=== PATIENT | female | born 1960 | race Two or more races ===

== ENCOUNTER 2020-03-05 15:51 | Outpatient (REF) | payer OTHER, SELFPAY ==
--- NOTE | 2020-03-05 | MM_ITS ---
EXAMINATION: MM SCREENING DIGITAL BREAST TOMOSYNTHESIS, BILATERAL CLINICAL INFORMATION: Screening. Asymptomatic. The lifetime risk of breast cancer based on the Tyrer-Cuzick Model is 6.5%. COMPARISON: Mammography: October 01, 2018 and studies dating back to August 04, 2013 TECHNIQUE: Digital breast tomosynthesis is performed in both the craniocaudal and mediolateral oblique views along with computer-aided detection (CAD). Synthesized 2D images are generated from the tomosynthesis. FINDINGS: The breasts are heterogeneously dense, which may obscure small masses (ACR BI-RADS breast composition Category c). There are no significant masses, abnormal calcifications, or other abnormalities. MM/MM tomosynthesis screening BI IMPRESSION: There are no significant changes from prior study. ASSESSMENT: BI-RADS 1: Negative RECOMMENDATION: Routine annual mammography screening. This patient's information was entered into a reminder system with a target due date for their next mammogram.
== END 2020-03-05 15:52 | disposition home or self-care (01) ==
LOC: HO.MAMMO 15:51
PROVIDERS: PCP Family Medicine; Visit Provider Family Medicine
DX: Z12.31 Encounter for screening mammogram for malignant neoplasm of breast (principal)
CPT/HCPCS: 77063; 77067

== ENCOUNTER → 2020-03-17 15:27 | Outpatient (BNVA) | payer OTHER, SELFPAY | PROVIDERS: PCP Family Medicine; Visit Provider Anesthesiology | DX: G89.4 Chronic pain syndrome (principal); M46.1 Sacroiliitis, not elsewhere classified; M47.16 Other spondylosis with myelopathy, lumbar region | CPT/HCPCS: 99212 ==

== ENCOUNTER → 2020-04-12 13:32 | Outpatient (BNV) | payer OTHER, SELFPAY | PROVIDERS: Visit Provider Internal Medicine Medical Oncology | DX: D70.9 Neutropenia, unspecified (principal) | CPT/HCPCS: 99213; 99214 ==

== ENCOUNTER → 2020-04-29 14:26 | Outpatient (BNVA) | payer OTHER, SELFPAY | PROVIDERS: PCP Family Medicine; Visit Provider Nurse Practitioner | DX: K58.9 Irritable bowel syndrome, unspecified (principal); K21.9 Gastro-esophageal reflux disease without esophagitis; R13.10 Dysphagia, unspecified; K59.00 Constipation, unspecified | CPT/HCPCS: Q3014 ==

== ENCOUNTER 2020-05-27 16:06 | Outpatient (REF) | payer OTHER, SELFPAY ==
[2020-05-27 17:45] LABS: MANUAL DIFF FLAG NO
[2020-05-27 17:46] LABS: Basophils Percent Auto 0.7 % (0-2); Eosinophils Absolute Auto 0.3 X10*3/uL (0.0-0.4); Hematocrit 39.5 % (37-47); Hemoglobin 12.7 g/dl (12.0-16.0); Lymphocytes Percent Auto 47.2 % (20-40); Mean Corpuscular HGB Conc 32.2 g/dl (31.0-35.0); Mean Corpuscular Hemoglobin 29.5 pg (27.0-33.0); Mean Corpuscular Volume 91.9 fL (80-98); Mean Platelet Volume 10.2 fL (9.4-12.3); Monocytes Absolute Auto 0.3 X10*3/uL (0.1-1.2); Monocytes Percent Auto 7.2 % (2-11); Neutrophils Absolute Auto 1.6 X10*3/uL (2.0-8.3); Neutrophils Percent Auto 38.9 % (45-73); Platelet Count 296 X10*3/uL (160-400); Red Cell Distribution Width 12.3 % (11.0-16.0); White Blood Count 4.2 X10*3/uL (4.8-10.8)
[2020-05-27 18:10] LABS: Alanine Aminotransferase 27 U/L (0-31); Albumin Level 4.5 g/dL (3.5-5.0); Alkaline Phosphatase 73 U/L (39-117); Anion Gap 13 (12-20); Aspartate Amino Transferase 25 U/L (5-31); Bilirubin Total 0.7 mg/dL (0.0-1.0); Blood Urea Nitrogen 18 mg/dL (9-16); C Reactive Protein 0.05 mg/dL (< or = 0.50); Calcium 9.8 mg/dL (8.4-10.2); Carbon Dioxide 26 mmol/L (22-29); Chloride 106 mmol/L (96-108); Estimated Glomerular Filt Rate > 60; Glucose Random 83 mg/dL (60-115); Potassium 4.3 mmol/l (3.3-5.1); Rheumatoid Factor < 15.0 IU/mL (<15.0); Sodium 141 mmol/L (135-145); Total Protein 7.5 g/dL (6.5-8.0)
[2020-05-27 19:08] LABS: Erythrocyte Sedimentation Rate 11 MM/HR (0-20)
[2020-05-28 11:42] LABS: Cyclic Citrullinated Peptide <16 UNITS
[2020-05-28 20:28] LABS: Anti Nuclear Antibody Screen NEGATIVE (NEGATIVE)
[2020-06-02 16:18] LABS: HLA B27 Negative (Negative)
== END 2020-05-27 16:07 | disposition home or self-care (01) ==
LOC: HO.LAB 16:06
PROVIDERS: PCP Family Medicine; Visit Provider Student in an Organized Health Care Education/Training Program
DX: M25.50 Pain in unspecified joint (principal); M46.1 Sacroiliitis, not elsewhere classified; Z79.899 Other long term (current) drug therapy; Z87.891 Personal history of nicotine dependence
CPT/HCPCS: 36415; 80053; 85025; 85652; 86038; 86039; 86140; 86200; 86431; 86812; 99202

== ENCOUNTER 2020-05-28 11:13 | Day surgery (SDC) | payer OTHER, SELFPAY ==
[2020-05-24 09:21] VITALS: BMI 24.6
--- NOTE | 2020-05-27 10:24 | HO.ANESPROP2 ---
Documented by User: Iveth Arreaga 05/27/20 10:28 HPI - Anesthesia Eval Consult details Narrative: 60yo F for Sacroiliac Joint Steroid Injection PMFSH Past Medical History Medical History Chronic pain syndrome GERD (gastroesophageal reflux disease) Hiatal hernia History of multinodular goiter Hx of migraines IBS (irritable bowel syndrome) Sacroiliitis Schatzki's ring Spondylosis, lumbar, with myelopathy Family History Family History Father Unknown family medical history Mother Breast cancer Chronic asthma HTN (hypertension) Arthritis Diverticulitis Gastritis Surgical History Surgical History History of bilateral tubal ligation History of cholecystectomy History of esophagogastroduodenoscopy (EGD) Hx of arthroscopy of right knee Hx of colonoscopy Hx of dilation and curettage Social History Social History Are you a primary after school caregiver to a significant other at home: No Do you presently have visiting nurse or other home services: No Alcohol intake: never Smoking Status: Former smoker Smoking Quit Date: 2002 Use of substances other than those prescribed or required for medical reasons: No Have you been hit, kicked, punched, or otherwise hurt by someone within the past year? If so, by whom?: No Advance Directives: No Advance Directives Information Provided: No Advance Directives on File: No Recently lost weight without trying: Yes Meds Allergies Allergy/AdvReac Type Severity Reaction Status Date / Time No Known Allergies Allergy Verified 05/27/20 16:20 [No Known Allergies*] Home Medications Medication Instructions Recorded Confirmed Type ibuprofen 800 mg tablet 800 mg PO TID 03/17/20 05/27/20 History topiramate 50 mg tablet 50 mg PO DAILY 03/17/20 05/27/20 History acetaminophen [Mapap Arthritis 1 tab PO Q8H PRN 04/12/20 05/27/20 History Pain] sennosides 8.6 mg capsule 8.6 mg PO DAILY 05/27/20 05/27/20 History sumatriptan succinate 50 mg tablet See Rx Instructions PO .COMPLEX 05/27/20 05/27/20 History Exam Exam Date and Time: May 27, 2020 1024 Height,Weight and Vital Signs: Height 5 ft 3 in Weight 63.049 kg Pertinent Lab Results Pertinent Lab Results: Laboratory Tests 04/12/20 04/12/20 13:34 13:34 WBC 4.3 L Hgb 12.2 Hct 38.7 Plt Count 307 Sodium 140 Potassium 4.2 Chloride 108 Carbon Dioxide 25 BUN 20 H Creatinine 0.85 Assessment and Plan Assessment Anesthesia Assessment: Chart Reviewed Documented by User: Wendi Pulido 05/28/20 13:15 PMFSH Past Medical History Medical History Chronic pain syndrome GERD (gastroesophageal reflux disease) Hiatal hernia History of multinodular goiter Hx of migraines IBS (irritable bowel syndrome) Sacroiliitis Schatzki's ring Spondylosis, lumbar, with myelopathy Family History Family History Father Unknown family medical history Mother Breast cancer Chronic asthma HTN (hypertension) Arthritis Diverticulitis Gastritis Surgical History Surgical History History of bilateral tubal ligation History of cholecystectomy History of esophagogastroduodenoscopy (EGD) Hx of arthroscopy of right knee Hx of colonoscopy Hx of dilation and curettage Social History Social History Are you a primary after school caregiver to a significant other at home: No Do you presently have visiting nurse or other home services: No Alcohol intake: never Smoking Status: Former smoker Smoking Quit Date: 2002 Use of substances other than those prescribed or required for medical reasons: No Have you been hit, kicked, punched, or otherwise hurt by someone within the past year? If so, by whom?: No Advance Directives: No Advance Directives Information Provided: No Advance Directives on File: No Recently lost weight without trying: Yes Meds Allergies Allergy/AdvReac Type Severity Reaction Status Date / Time No Known Allergies Allergy Verified 05/27/20 16:20 [No Known Allergies*] Home Medications Medication Instructions Recorded Confirmed Type ibuprofen 800 mg tablet 800 mg PO TID 03/17/20 05/27/20 History topiramate 50 mg tablet 50 mg PO DAILY 03/17/20 05/27/20 History acetaminophen [Mapap Arthritis 1 tab PO Q8H PRN 04/12/20 05/27/20 History Pain] sennosides 8.6 mg capsule 8.6 mg PO DAILY 05/27/20 05/27/20 History sumatriptan succinate 50 mg tablet See Rx Instructions PO .COMPLEX 05/27/20 05/27/20 History Exam Airway Mallampati Class: II TM Dist: >3cm Neck ROM: Full Partial: Upper and Lower
[2020-05-28 12:37] VITALS: BP 109/63; PULSE 53; RESP 18; TEMP 36.2; O2SAT 100
[2020-05-28] MEDS: Lactated Ringers 1,000 ML 100 ML IVCONT (13:00)
--- NOTE | 2020-05-28 13:16 | MHC.SHP ---
Pre-Procedural Eval Section A The patient is an INPATIENT: No The History & Physical has been completed within 30 days and I have reviewed it.: No Section B Chief Complaint: sacroiliitis Details of Present Illness: as above Relevant Family History (Specify if Yes): No Present Medications: None Medical History: No relevant PMH History of Previous Operations: No relevant previous surgery Allergies: Allergies Allergy/AdvReac Type Severity Reaction Status Date / Time No Known Allergies Allergy Verified 05/27/20 16:20 [No Known Allergies*] Review of Systems Sugical H&P ROS: Negative: Constitution, Cardiovascular, Respiratory, Neurological, Psychiatric, Hem-Onc, Allergic/Immunologic, Gastrointestinal, Genitourinary, Musculoskeletal, Integumentary, Endocrine and Eyes/Ears/Nose/Throat Exam Surgical H&P Exam: Normal: HEENT, Normal: Heart, Normal: Lungs, Normal: Extremities, Normal: Abdomen, Normal: Skin and Normal: Neurological Plan Diagnosis/Plan: Unchanged I have reviewed the history and physical and performed a pertinent physical examination on my patient. No changes have occurred unless specified.
--- NOTE | 2020-05-28 14:02 | FL_ITS ---
EXAMINATION: XR FLUOROSCOPY WITH IMAGES CLINICAL INFORMATION: Sacroiliac joint injections bilateral TECHNIQUE: Fluoroscopy time: 0.2 minutes DAP: 1.79 mGycm2 Images: 2 FINDINGS: Multiple intraoperative fluoroscopic images are submitted during reported bilateral sacroiliac joint injections. Correlation with operative report. Evaluation is limited secondary to fluoroscopic technique. IMPRESSION: Intra-operative fluoroscopic imaging provided by radiology during reported bilateral sacroiliac joint injections. Please refer to operative note for further information.
[2020-05-28 14:32] VITALS: BP 107/53; PULSE 60; RESP 17; TEMP 36.7; O2SAT 98
--- NOTE | 2020-05-28 14:32 | PM.OP ---
Brief Operative Note Date of Service: 05/28/20 Pre-op diagnosis: sacroiliitis Post-op diagnosis: same Procedure: sacroiliac joint injection bilateral Implants: Surgeon: Carlo Azul MD Anesthesia: MAC Estimated blood loss (mL): 0 Condition: stable Disposition: PACU
[2020-05-28 14:47] VITALS: BP 101/52; PULSE 63; RESP 18; TEMP 36.8; O2SAT 100
--- NOTE | 2020-05-28 15:16 | HO.POSTANES ---
Post Anesthesia Evaluation Post Anesthesia Evaluation Vital Signs: Vital Signs Temp Pulse Resp BP Pulse Ox 05/28/20 14:47 98.2 F 63 18 101/52 L 100 05/28/20 14:32 98.1 F 60 17 107/53 L 98 05/28/20 12:37 97.2 F 53 18 109/63 100 Anesthesia: Monitored Mental Status: Awake Pain Control: Satisfactory Nausea/Vomiting: None Hydration: Adequate Anesthesia-Related Issues: No Anes. Related Issues
--- NOTE | 2020-05-28 16:29 | P.OP_ITS ---
Operative Note Operative Note Date of Service: 05/28/20 Narrative: Informed consent was explained thoroughly to the patient. All questions about benefits and risks for the procedure were answered. Patient came to the operating room she was positioned prone on the operating table with the pillow under her pelvis. [place] [employer] monitors were applied and patient was deeply sedated. Her lower back and buttocks was prepped with ChloraPrep prepped and draped with sterile towels. Sterilely draped C-arm was brought over the operating field and sq picture of patient's pelvis was demonstrated on the screen. For each joint tilting C-arm contralateral to the site of the joint and 15? to the foot of the patient the most posterior portion of the joints were clearly delineated on the screen. Skin was injected in the projection of the joint slightly medial to the location of the joint with 25 gauge 1/2 inch needle using local lidocaine 2% without epinephrine. After that 22 gauge 3 and 1/2 inch needle was driven to each point of interest in tunnel vision fashion. When needle entered the joint capsule injection of the contrast was performed demonstrating intra-articular and minimally periarticular spread of the contrast. After that 4 cc. of bupivacaine 0.5% mixed with Kenalog 40 mg was injected into each joint. Upon completion of the injections the needles were removed and pressure were applied. Sterile dressing was applied. Upon completion of the injection patient was awaken taken outside of the operating room to the recovery room where she recovered uneventfully. She went home without immediate complications.
== END 2020-05-28 15:12 | disposition home or self-care (01) ==
PROVIDERS: PCP Family Medicine; Visit Provider Anesthesiology
PROC: 3E0U33Z Introduction of Anti-inflammatory into Joints, Percutaneous Approach (ICD-10-PCS; CPT 27096; principal; 2020-05-28 12:20)
DX: M46.1 Sacroiliitis, not elsewhere classified (principal); M47.16 Other spondylosis with myelopathy, lumbar region; G89.4 Chronic pain syndrome
CPT/HCPCS: 27096; J2250; J3010; J3300; Q9967

== ENCOUNTER → 2020-06-21 15:49 | Outpatient (BNVA) | payer OTHER, SELFPAY | PROVIDERS: PCP Family Medicine; Visit Provider Nurse Practitioner | DX: Z13.89 Encounter for screening for other disorder (principal) | CPT/HCPCS: Q3014 ==

== ENCOUNTER → 2020-06-24 13:46 | Outpatient (BNVA) | payer OTHER, SELFPAY | PROVIDERS: PCP Family Medicine; Visit Provider Anesthesiology | DX: M16.12 Unilateral primary osteoarthritis, left hip (principal); M46.1 Sacroiliitis, not elsewhere classified; M47.16 Other spondylosis with myelopathy, lumbar region; G89.4 Chronic pain syndrome | CPT/HCPCS: 99212 ==

== ENCOUNTER 2020-06-29 13:50 | Outpatient (REF) | payer OTHER, SELFPAY ==
[2020-06-29 14:23] LABS: MANUAL DIFF FLAG NO
[2020-06-29 14:32] LABS: Basophils Percent Auto 0.6 % (0-2); Eosinophils Absolute Auto 0.1 X10*3/uL (0.0-0.4); Eosinophils Percent Auto 1.9 % (0-4); Hematocrit 38.3 % (37-47); Hemoglobin 12.4 g/dl (12.0-16.0); Lymphocytes Absolute Auto 1.3 X10*3/uL (1.2-4.9); Lymphocytes Percent Auto 35.1 % (20-40); Mean Corpuscular HGB Conc 32.4 g/dl (31.0-35.0); Mean Corpuscular Hemoglobin 29.6 pg (27.0-33.0); Mean Corpuscular Volume 91.4 fL (80-98); Monocytes Absolute Auto 0.3 X10*3/uL (0.1-1.2); Neutrophils Percent Auto 55.4 % (45-73); Platelet Count 246 X10*3/uL (160-400); Red Blood Count 4.19 X10*6/uL (4.20-5.50); Red Cell Distribution Width 12.6 % (11.0-16.0); White Blood Count 3.6 X10*3/uL (4.8-10.8)
[2020-06-29 14:49] LABS: Estimated Average Glucose 85 mg/dL; Hemoglobin A1c % 4.6 %
[2020-06-29 15:04] LABS: Alanine Aminotransferase 24 U/L (0-31); Albumin Level 4.1 g/dL (3.5-5.0); Alkaline Phosphatase 57 U/L (39-117); Anion Gap 11 (12-20); Aspartate Amino Transferase 19 U/L (5-31); Bilirubin Total 0.6 mg/dL (0.0-1.0); Blood Urea Nitrogen 19 mg/dL (9-16); Calcium 9.1 mg/dL (8.4-10.2); Carbon Dioxide 24 mmol/L (22-29); Chloride 109 mmol/L (96-108); Cholesterol 194 mg/dL; Estimated Glomerular Filt Rate > 60; Glucose Random 87 mg/dL (60-115); HDL Cholesterol 66 mg/dL; LDL Cholesterol Calculated 121 mg/dl; Potassium 4.1 mmol/L (3.3-5.1); Sodium 140 mmol/L (135-145); Total Protein 6.8 g/dL (6.5-8.0); Triglycerides 35 mg/dL
[2020-06-29 15:21] LABS: TSH reflex Free T4 1.07 uIU/mL (0.32-4.0); Vitamin D 25-OH Total 31.8 ng/mL (>30)
== END 2020-06-29 13:51 | disposition home or self-care (01) ==
LOC: HO.LAB 13:50
PROVIDERS: Absent Provider Internal Medicine Medical Oncology; PCP Nurse Practitioner Family; Visit Provider Nurse Practitioner Family
DX: E04.1 Nontoxic single thyroid nodule (principal); G47.00 Insomnia, unspecified; Z71.89 Other specified counseling
CPT/HCPCS: 36415; 80053; 80061; 82306; 83036; 84443; 85025

== ENCOUNTER → 2020-07-01 16:01 | Outpatient (BNVA) | payer OTHER, SELFPAY | PROVIDERS: Visit Provider Student in an Organized Health Care Education/Training Program | DX: M25.50 Pain in unspecified joint (principal); M54.5 Low back pain; Z91.81 History of falling; Z79.899 Other long term (current) drug therapy | CPT/HCPCS: 99212 ==

== ENCOUNTER 2020-07-07 09:09 | Outpatient (REF) | payer OTHER, SELFPAY ==
--- NOTE | ~2020-07-07 | US_ITS ---
EXAMINATION: US THYROID CLINICAL INFORMATION: Nontoxic multinodular goiter. COMPARISON: Ultrasound soft tissue head/neck thyroid dated 05/05/2019 and 04/24/2018. TECHNIQUE: Linear transducer grayscale and color Doppler examination with attention to the region of the thyroid. FINDINGS: SIZE: Measurements of the thyroid lobes and nodules are given in sagittal, anteroposterior and transverse dimensions respectively. Right Thyroid Lobe: 5.8 x 2.0 x 1.7 cm, volume 10.6 mL. Previously 4.7 x 1.6 x 1.9 cm, volume 7.5 mL. Parenchyma: The gland echotexture is homogeneous. Thyroid vascularity is normal. Left Thyroid Lobe: 5.9 x 2.1 x 2.0 cm, volume 13.1 mL. Previously 5.2 x 2.0 x 2.2 cm, volume 12.0 mL. Parenchyma: The gland echotexture is homogeneous. Thyroid vascularity is increased. Isthmus: 0.1 cm in maximum AP dimension. Previously 0.2 cm. Estimated total number of nodules greater than or equal to 1 cm: 3. 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 Location: Right superior. Size: 0.6 x 0.5 x 0.5 cm, volume 0.08 mL. Previously: 0.7 x 0.5 x 0.6 cm, volume 0.11 mL. Nodule characteristics: Composition: Solid/almost completely solid (2). Echogenicity: Hypoechoic (2). Shape: Not taller than wide (0). Margins: Smooth (0). Echogenic Foci: None (0). ACR TI-RADS total points: 4 ACR TI-RADS category: 4 Significant change in size (>/= 20% in 2 dimensions and minimal increase of 2 mm or 50% or greater increase in volume): None Change in features: None Change in ACR TI-RADS risk category: None 2. Location: Right superior. Size: 0.9 x 0.7 x 0.9 cm, volume 0.33 mL. Previously: 0.9 x 0.8 x 0.8 cm, volume 0.30 mL. Nodule characteristics: Composition: Solid (2). Echogenicity: Hypoechoic (2). Shape: Not taller than wide (0). Margins: Smooth (0). Echogenic Foci: None (0). ACR TI-RADS total points: 4 ACR TI-RADS category: 4 Significant change in size (>/= 20% in 2 dimensions and minimal increase of 2 mm or 50% or greater increase in volume): None Change in features: None Change in ACR TI-RADS risk category: None 3. Location: Right mid/superior. Size: 1.0 x 0.8 x 0.8 cm, volume 0.33 mL. Previously: 0.9 x 0.7 x 0.8 cm, volume 0.26 mL. Nodule characteristics: Composition: Spongiform (0). Echogenicity: Anechoic (0). Shape: Not taller than wide (0). Margins: Smooth (0). Echogenic Foci: None (0). ACR TI-RADS total points: 0 ACR TI-RADS category: 1 Significant change in size (>/= 20% in 2 dimensions and minimal increase of 2 mm or 50% or greater increase in volume): None Change in features: None Change in ACR TI-RADS risk category: None 4. Location: Left mid/superior. Size: 2.2 x 1.8 x 1.9 cm, volume 4.06 mL. Previously: 2.1 x 1.9 x 1.7 cm, volume 3.55 mL. Nodule characteristics: Composition: Solid (2). Echogenicity: Isoechoic (1). Shape: Not taller than wide (0). Margins: Smooth (0). Echogenic Foci: None (0). ACR TI-RADS total points: 3 ACR TI-RADS category: 3 Significant change in size (>/= 20% in 2 dimensions and minimal increase of 2 mm or 50% or greater increase in volume): None Change in features: None Change in ACR TI-RADS risk category: None 5. Location: Left inferior/lateral. Size: 1.2 x 0.9 x 0.8 cm, volume 0.45 mL. Previously: Not documented on the prior study. Nodule characteristics: Composition: Solid (2). Echogenicity: Isoechoic (1). Shape: Taller than wide (3). Margins: Smooth (0). Echogenic Foci: None (0). ACR TI-RADS total points: 6 ACR TI-RADS category: 4 New nodule not documented on the previous exam. NODES: No lymphadenopathy is seen in the tissue surrounding the thyroid gland. US/US thyroid IMPRESSION: Multinodular goiter. There are multiple nodules seen. The largest nodules are documented. A 1.2 cm left lower pole nodule is new or not documented previously. Recommend continued follow-up. ACR TI-RADS RECOMMENDATION REFERENCE: Ultrasound-guided fine-needle aspiration, followup ultrasound, no further follow up. * TR1 (0 point) and TR 2 (2 points): No FNA or follow up * TR3 (3 points): FNA if more than or equal to 2.5 cm in maximum dimension, followup ultrasound in 1, 3 and 5 years if 1.5 to 2.4 cm in maximum dimension. * TR4 (4-6 points): FNA if more than or equal to 1.5 cm in maximum dimension, followup ultrasound in 1, 2, 3 and 5 years if 1 to 1.4 cm in maximum dimension. * TR5 (more than or equal to 7 points): FNA if more than or equal to 1 cm in maximum dimension, followup ultrasound every year for 5 years if 0.5 to 0.9 cm in maximum dimension. * TR3, TR4 or TR5 nodules that are below the size threshold for follow up receive no follow up.
[2020-07-07 10:23] LABS: MANUAL DIFF FLAG NO
[2020-07-07 10:29] LABS: Basophils Percent Auto 0.7 % (0-2); Eosinophils Percent Auto 1.1 % (0-4); Hematocrit 40.1 % (37-47); Hemoglobin 12.9 g/dl (12.0-16.0); Imm Gran Abs Auto 0.01 X10*3/uL (0.00-0.03); Imm Gran Pct Auto 0.4 % (0.0-0.4); Lymphocytes Absolute Auto 1.1 X10*3/uL (1.2-4.9); Lymphocytes Percent Auto 38.9 % (20-40); Mean Corpuscular HGB Conc 32.2 g/dl (31.0-35.0); Mean Corpuscular Hemoglobin 29.8 pg (27.0-33.0); Mean Corpuscular Volume 92.6 fL (80-98); Mean Platelet Volume 9.8 fL (9.4-12.3); Monocytes Absolute Auto 0.2 X10*3/uL (0.1-1.2); Monocytes Percent Auto 6.3 % (2-11); Neutrophils Absolute Auto 1.4 X10*3/uL (2.0-8.3); Neutrophils Percent Auto 52.6 % (45-73); Platelet Count 290 X10*3/uL (160-400); Red Blood Count 4.33 X10*6/uL (4.20-5.50); Red Cell Distribution Width 12.5 % (11.0-16.0); White Blood Count 2.7 X10*3/uL (4.8-10.8)
[2020-07-07 11:05] LABS: Alanine Aminotransferase 26 U/L (0-31); Albumin Level 4.2 g/dL (3.5-5.0); Alkaline Phosphatase 57 U/L (39-117); Anion Gap 9 (12-20); Aspartate Amino Transferase 20 U/L (5-31); Bilirubin Total 0.5 mg/dL (0.0-1.0); Blood Urea Nitrogen 21 mg/dL (9-16); Calcium 9.5 mg/dL (8.4-10.2); Carbon Dioxide 29 mmol/L (22-29); Chloride 107 mmol/L (96-108); Cholesterol 206 mg/dL; Estimated Glomerular Filt Rate > 60; Glucose Random 88 mg/dL (60-115); HDL Cholesterol 67 mg/dL; LDL Cholesterol Calculated 132 mg/dl; Potassium 4.4 mmol/L (3.3-5.1); Sodium 141 mmol/L (135-145); Total Protein 6.9 g/dL (6.5-8.0); Triglycerides 36 mg/dL
[2020-07-07 11:07] LABS: Estimated Average Glucose 91 mg/dL; Hemoglobin A1c % 4.8 %
[2020-07-07 11:19] LABS: TSH reflex Free T4 0.81 uIU/mL (0.32-4.0); Vitamin D 25-OH Total 33.4 ng/mL (>30)
== END 2020-07-07 09:10 | disposition home or self-care (01) ==
LOC: HO.US 09:09
PROVIDERS: Absent Provider Nurse Practitioner Family; PCP Nurse Practitioner Family; Visit Provider Internal Medicine Endocrinology, Diabetes & Metabolism
DX: E04.2 Nontoxic multinodular goiter (principal); E04.1 Nontoxic single thyroid nodule; G47.00 Insomnia, unspecified; Z71.89 Other specified counseling
CPT/HCPCS: 36415; 76536; 80053; 80061; 82306; 83036; 84443; 85025

== ENCOUNTER → 2020-08-03 15:19 | Outpatient (BNVA) | payer OTHER, SELFPAY | PROVIDERS: PCP Family Medicine; Visit Provider Internal Medicine Endocrinology, Diabetes & Metabolism | DX: E04.2 Nontoxic multinodular goiter (principal); E06.3 Autoimmune thyroiditis | CPT/HCPCS: 99212 ==

== ENCOUNTER 2020-08-10 06:28 | Outpatient (REF) | payer OTHER, SELFPAY ==
--- NOTE | ~2020-08-10 | FL_ITS ---
EXAMINATION: XR FLUOROSCOPY WITH IMAGES CLINICAL INFORMATION: M16.12 - Unilateral primary osteoarthritis COMPARISON: Radiographs left hip 07/01/2019 TECHNIQUE: Fluoroscopy performed by Krystina Bee NP. Fluoroscopy time: 0.4 minutes DAP: 1.74 Gycm2 Images: 1 FINDINGS: There is a spinal needle overlying the superolateral aspect of the hip joint. There is some intra-articular contrast present as well as contrast in the labral capsular soft tissue. FL/FL guidance in treatment room IMPRESSION: Fluoroscopy performed during management procedure.
== END 2020-08-10 06:29 | disposition home or self-care (01) ==
LOC: HO.RADIR 06:28
PROVIDERS: Visit Provider Anesthesiology
DX: M16.12 Unilateral primary osteoarthritis, left hip (principal); M46.1 Sacroiliitis, not elsewhere classified; M47.16 Other spondylosis with myelopathy, lumbar region; G89.4 Chronic pain syndrome
CPT/HCPCS: 20610; J3300; Q9967

== ENCOUNTER → 2020-08-13 07:37 | Outpatient (REF) | payer OTHER, SELFPAY | LOC: HO.NUCMED 07:37 | PROVIDERS: Visit Provider Nurse Practitioner | DX: Z13.89 Encounter for screening for other disorder (principal) ==

== ENCOUNTER → 2020-08-30 07:49 | Outpatient (REF) | payer OTHER, SELFPAY ==
--- NOTE | ~2020-08-30 | NM_ITS ---
EXAMINATION: NM RADIONUCLIDE SOLID FOOD GASTRIC EMPTYING 4-HOUR STUDY CLINICAL INFORMATION: Abnormal weight loss COMPARISON: None TECHNIQUE: A standard meal consisting of 4 oz of Egg Beaters brand tagged with 1.0 microcuries Tc-99m Sulfur Colloid, 8 oz water and 2 slices of toast with jelly was administered orally to the patient. Images were obtained using a dual head gamma camera in the anterior and posterior projections over of the stomach immediately post ingestion and at hourly intervals up to 4 hours post ingestion. The anterior and posterior counts at each time interval were averaged using the geometric mean and expressed as percentage of the immediate post ingestion counts. FINDINGS: There is good visualization of activity in the stomach immediately post ingestion. As the study progresses, there is good clearance of activity from the stomach and visualization of progressively increasing small bowel activity. By the end of the study, there is almost no retention noted in the stomach. Retention in the stomach at each time interval was: 1 hour 58% (normal 37%-90%) 2 hours 7% (normal 30%-60%) 3 hours 1% 4 hours 0% (normal 0%-10%) NM/NM gastric emptying study IMPRESSION: Normal 4-hour solid food gastric emptying study.
== END ==
LOC: HO.NUCMED 07:49
PROVIDERS: Visit Provider Nurse Practitioner
DX: R63.4 Abnormal weight loss (principal)
CPT/HCPCS: 78264; A9541

== ENCOUNTER → 2020-09-15 13:45 | Outpatient (BNVA) | payer OTHER, SELFPAY | PROVIDERS: PCP Family Medicine; Visit Provider Anesthesiology | DX: M16.12 Unilateral primary osteoarthritis, left hip (principal); M46.1 Sacroiliitis, not elsewhere classified; M47.16 Other spondylosis with myelopathy, lumbar region; G89.4 Chronic pain syndrome | CPT/HCPCS: Q3014 ==

== ENCOUNTER 2020-10-13 13:24 | Outpatient (REF) | payer OTHER, SELFPAY ==
--- NOTE | ~2020-10-13 | XR_ITS ---
EXAMINATION: XR SHOULDER, RIGHT CLINICAL INFORMATION: Right shoulder pain. COMPARISON: None TECHNIQUE: AP external rotation, Grashey, scapular Y, and axillary views of the right shoulder. FINDINGS: Minimal reduction of glenohumeral and AC joint space is noted. No fracture, dislocation or loose body seen. There is mild inferior periapical spurring right AC joint. The soft tissues are normal. XR/XR shoulder RT min 2V IMPRESSION: Mild early degenerative changes right AC joint and glenohumeral joint.
== END 2020-10-13 13:25 | disposition home or self-care (01) ==
LOC: HO.XRAY 13:24
PROVIDERS: Visit Provider Emergency Medicine
DX: M25.511 Pain in right shoulder (principal)
CPT/HCPCS: 73030

== ENCOUNTER → 2020-11-03 13:31 | Outpatient (BNVA) | payer OTHER, SELFPAY | PROVIDERS: PCP Nurse Practitioner Family; Visit Provider Internal Medicine Endocrinology, Diabetes & Metabolism | DX: E04.2 Nontoxic multinodular goiter (principal); E06.3 Autoimmune thyroiditis; Z79.899 Other long term (current) drug therapy | CPT/HCPCS: 99212 ==

== ENCOUNTER → 2020-11-15 13:12 | Outpatient (BNVA) | payer OTHER, SELFPAY | PROVIDERS: PCP Family Medicine; Referring Provider Nurse Practitioner Family; Visit Provider Nurse Practitioner ==

== ENCOUNTER 2020-11-18 13:23 | Outpatient (REF) | payer OTHER, SELFPAY ==
--- NOTE | ~2020-11-18 | XR_ITS ---
EXAMINATION: XR WRIST, RIGHT CLINICAL INFORMATION: Pain COMPARISON: None TECHNIQUE: PA, lateral, oblique, and scaphoid views of the right wrist. FINDINGS: No acute fracture or dislocation. Small marginal osteophytes present along the first CMC and triscaphe joints with accompanying subchondral sclerosis. Degenerative arthrosis present within the triquetrum. Radiocarpal joint space preserved. Soft tissues unremarkable. XR/XR wrist RT min 3V IMPRESSION: No acute findings. Degenerative changes of the first CMC and triscaphe joints.
== END 2020-11-18 13:24 | disposition home or self-care (01) ==
LOC: HO.XRAY 13:23
PROVIDERS: PCP Nurse Practitioner Family; Visit Provider Nurse Practitioner Family
DX: M75.101 Unspecified rotator cuff tear or rupture of right shoulder, not specified as traumatic (principal); M25.531 Pain in right wrist
CPT/HCPCS: 20610; 73110; 99212; J1100

== ENCOUNTER → 2020-12-17 14:01 | Outpatient (BNVA) | payer OTHER, SELFPAY | PROVIDERS: PCP Nurse Practitioner Family; Referring Provider Nurse Practitioner Family; Visit Provider Nurse Practitioner | DX: G43.909 Migraine, unspecified, not intractable, without status migrainosus (principal); K21.9 Gastro-esophageal reflux disease without esophagitis; K58.9 Irritable bowel syndrome, unspecified; R13.10 Dysphagia, unspecified; R63.4 Abnormal weight loss | CPT/HCPCS: 99212 ==

== ENCOUNTER 2020-12-23 08:00 | Outpatient (RCR) | payer OTHER, SELFPAY ==
--- NOTE | 2020-12-17 08:26 | MHC.PT.EP ---
[facility] [place] [facility] [place] [facility] [place] [facility] [address] Greg Lagos [address] [phone] F: [phone] F: [phone] F: [phone] F: [phone] Physical Therapy Plan of Care Date of Evaluation: Date of Surgery: Diagnosis: painful arc syndrome right shoulder Assessment: The patient arrived with symptoms consistent of a posterolateral derangement of the mid cervical spine with a right lateral component. She had initially significantly reduced cervical spine and right shoulder ROM, butt after treatment of her cervical spine with the Gris method she showed at least a 20 degree improvement with shoulder ROM eliminating her painful arc and 10 degree impovement in her cervical ROM and overall decreased pain. She will need additional visits to improve posture, sitting and body mechanics to improve her pain and decrease reoccurrence. She is a good candidate for skilled PT. Frequency and Duration: The patient will be seen 2x/week x 4 weeks Short Term Goals: 1.Pt to able to demonstrate proper sitting posture with the use of a lumbar roll to decrease aggravating factors. 2.Pt to be able to demonstrate proper posture for common leisure activities such as phone/tablet use. 3.For the patient to demonstrate proper upright sitting posture with use of the lumbar roll to improve compliance and carryover. Bone Char Operator Goals: 1. Pt to be able to return to normal PLOF without limiting pain. 2. Pt to be able to return to overhead reaching without pain or limitation. 3. Pt to be able to manage her pain with selected exercise and stretching regime. Treatment Plan: Modalities to reduce pain, spasms and effusion. Manual therapy to restore motion and function. Therapeutic exercise to improve strength and flexibility. Neuromuscular re-education for posture and balance. Therapeutic activities to return to functional activities of daily living. Electronically signed by: Nancy Mars PT DPT Please sign and return to therapist. Thank you for your referral.
== END 2021-01-18 08:00 | disposition home or self-care (01) ==
LOC: HO.PT 08:00
PROVIDERS: Visit Provider Orthopaedic Surgery
DX: M75.101 Unspecified rotator cuff tear or rupture of right shoulder, not specified as traumatic (principal)
CPT/HCPCS: 97110; 97112; 97140; 97162

== ENCOUNTER → 2021-01-28 13:37 | Outpatient (BNVA) | payer OTHER, SELFPAY | PROVIDERS: PCP Nurse Practitioner Family; Visit Provider Nurse Practitioner ==

== ENCOUNTER → 2021-03-07 15:36 | Outpatient (BNVA) | payer OTHER, SELFPAY | PROVIDERS: PCP Nurse Practitioner Family; Visit Provider Anesthesiology | DX: M16.12 Unilateral primary osteoarthritis, left hip (principal); M46.1 Sacroiliitis, not elsewhere classified; M47.16 Other spondylosis with myelopathy, lumbar region; G89.4 Chronic pain syndrome | CPT/HCPCS: 99212 ==

== ENCOUNTER 2021-03-09 13:46 | Outpatient (REF) | payer OTHER, SELFPAY ==
--- NOTE | ~2021-03-09 | MM_ITS ---
EXAMINATION: MM SCREENING DIGITAL BREAST TOMOSYNTHESIS, BILATERAL CLINICAL INFORMATION: Screening. Asymptomatic. Benign right breast biopsy 08/28/2012 (sclerosing adenosis). The lifetime risk of breast cancer based on the Tyrer-Cuzick Model is 8%. COMPARISON: Mammography: 03/05/2020, 10/01/2018, 09/26/2017 TECHNIQUE: Digital breast tomosynthesis is performed in both the craniocaudal and mediolateral oblique views along with computer-aided detection (CAD). Synthesized 2D images are generated from the tomosynthesis. FINDINGS: The breasts are heterogeneously dense, which may obscure small masses (ACR BI-RADS breast composition Category c). There are no significant masses, abnormal calcifications, or other abnormalities. There is biopsy clip marker again noted right breast mid upper outer quadrant. Again, there are some benign calcifications mid and anterior upper outer left breast. The axilla and skin contours are unremarkable. No significant changes. MM/MM tomosynthesis screening BI IMPRESSION: No mammographic evidence of malignancy. ASSESSMENT: BI-RADS 2: Benign RECOMMENDATION: Routine annual mammography screening. This patient's information was entered into a reminder system with a target due date for their next mammogram.
== END 2021-03-09 13:47 | disposition home or self-care (01) ==
LOC: HO.MAMMO 13:46
PROVIDERS: PCP Registered Nurse Community Health; Visit Provider Registered Nurse Community Health
DX: Z12.31 Encounter for screening mammogram for malignant neoplasm of breast (principal)
CPT/HCPCS: 77063; 77067

== ENCOUNTER 2021-04-08 14:47 | Outpatient (REF) | payer OTHER, SELFPAY ==
--- NOTE | ~2021-04-08 | MR_ITS ---
EXAMINATION: MR BRAIN WITHOUT AND WITH CONTRAST CLINICAL INFORMATION: 61-year-old with gait disorder and hyperreflexia. Migraines without aura. COMPARISON: None. TECHNIQUE: Multiplanar, multisequence MRI of the brain was obtained before and after the intravenous administration of 6 mL Gadavist. FINDINGS: Brain Volume: Within normal limits. Structural: No malformations. Brain and Meninges: DWI sequence demonstrates no restricted diffusion. Specifically, there is no evidence for acute or subacute cerebral ischemia. A few small zones of FLAIR/T2 signal hyperintensity are seen within the subcortical white matter of both frontal lobes near the convexity and within the right centrum semiovale white matter without abnormal enhancement, which are nonspecific findings. Otherwise, the remainder of the brain is normal in morphology and signal intensity. There is no evidence for hemorrhage, hemosiderin staining or abnormal mineral deposition. No extra-axial fluid collections, intracranial mass lesions, abnormal enhancement, space-occupying process or mass effect is identified. Ventricles and Subarachnoid Spaces: The ventricular system and subarachnoid spaces are within normal limits. There is no hydrocephalus. Orbital Structures: The visualized orbital structures are grossly unremarkable within the limitations of the study. Vascular: Signal voids are noted in the visualized major intracranial vessels. Sinuses and Osseous Structures: Osseous marrow signal intensity appears within normal limits. MR/MR head/brain wo/w con IMPRESSION: 1. A few nonenhancing white matter T2 hyperintensities are seen in the cerebral hemispheres as discussed above involving the frontal lobes which are nonspecific findings. These could reflect migraine associated vasculopathy or minimal foci of chronic ischemic microangiopathy. 2. No mass lesions, abnormal enhancement, hemorrhage, extra-axial fluid collections, space-occupying process, mass effect or hydrocephalus.
== END 2021-04-08 14:48 | disposition home or self-care (01) ==
LOC: HO.MRI 14:47
PROVIDERS: Visit Provider Psychiatry & Neurology Neurology
DX: G43.009 Migraine without aura, not intractable, without status migrainosus (principal); R26.9 Unspecified abnormalities of gait and mobility; R29.2 Abnormal reflex
CPT/HCPCS: 70553; A9585

== ENCOUNTER 2021-06-06 13:29 | Outpatient (REF) | payer OTHER, SELFPAY ==
[2021-06-09 12:36] LABS: HPV 16 RNA NOT DETECTED (NOT DETECTED); HPV mRNA E6/E7 rflx Detected (Not Detected)
== END 2021-06-06 13:30 | disposition home or self-care (01) ==
LOC: HO.LAB 13:29
PROVIDERS: Visit Provider Obstetrics & Gynecology
DX: Z01.411 Encounter for gynecological examination (general) (routine) with abnormal findings (principal); Z11.51 Encounter for screening for human papillomavirus (HPV); N95.0 Postmenopausal bleeding
CPT/HCPCS: 87624; 87625; 88142; 99212

== ENCOUNTER 2021-06-13 08:38 | Outpatient (REF) | payer OTHER, SELFPAY ==
--- NOTE | ~2021-06-13 | XR_ITS ---
EXAMINATION: XR KNEES, STANDING AP XR KNEE, RIGHT CLINICAL INFORMATION: Knee pain COMPARISON: Radiographs right knee 01/17/2018 and standing AP knees 01/13/2016. TECHNIQUE: Standing AP view of both knees is performed. The right knee is also imaged in lateral and axial patella views. FINDINGS: Right: No fracture, dislocation, destructive process. There is trace fluid suprapatellar bursa. Hoffa's fat pad appears normal. There is mild narrowing medial knee joint compartment with borderline marginal osteophytes medial femoral condyle and medial tibial plateau. No visible erosive change or chondrocalcinosis. No lateralization patella. Left: Mild narrowing medial knee joint compartment with borderline marginal osteophyte medial femoral condyle and medial tibial plateau. No erosive change. Question chondrocalcinosis articular cartilage lateral tibial plateau. Bony mineralization unremarkable. No destructive process. XR/XR knee standing BI IMPRESSION: 1. Mild narrowing bilateral medial knee joint compartments with marginal osteophytes medial femoral condyles and tibial plateau. 2. Borderline/trace effusion right knee.
--- NOTE | ~2021-06-13 | XR_ITS ---
EXAMINATION: XR KNEES, STANDING AP XR KNEE, RIGHT CLINICAL INFORMATION: Knee pain COMPARISON: Radiographs right knee 01/17/2018 and standing AP knees 01/13/2016. TECHNIQUE: Standing AP view of both knees is performed. The right knee is also imaged in lateral and axial patella views. FINDINGS: Right: No fracture, dislocation, destructive process. There is trace fluid suprapatellar bursa. Hoffa's fat pad appears normal. There is mild narrowing medial knee joint compartment with borderline marginal osteophytes medial femoral condyle and medial tibial plateau. No visible erosive change or chondrocalcinosis. No lateralization patella. Left: Mild narrowing medial knee joint compartment with borderline marginal osteophyte medial femoral condyle and medial tibial plateau. No erosive change. Question chondrocalcinosis articular cartilage lateral tibial plateau. Bony mineralization unremarkable. No destructive process. XR/XR knee RT 2V IMPRESSION: 1. Mild narrowing bilateral medial knee joint compartments with marginal osteophytes medial femoral condyles and tibial plateau. 2. Borderline/trace effusion right knee.
== END 2021-06-13 08:39 | disposition home or self-care (01) ==
LOC: HO.HOSX 08:38
PROVIDERS: Visit Provider Orthopaedic Surgery
DX: M17.10 Unilateral primary osteoarthritis, unspecified knee (principal)
CPT/HCPCS: 20610; 73560; 73565; 99212; J1100

== ENCOUNTER 2021-06-28 13:44 | Outpatient (REF) | payer OTHER, SELFPAY ==
--- NOTE | ~2021-06-28 | US_ITS ---
EXAMINATION: US PELVIS CLINICAL INFORMATION: Postmenopausal bleeding. COMPARISON: Pelvic ultrasound dated 09/23/2019. TECHNIQUE: Ultrasound of the pelvis is performed using both transabdominal and transvaginal transducers along with Doppler. Transvaginal imaging is performed due to inadequate visualization transabdominally. FINDINGS: Uterus: The uterus is anteverted and measures 9.3 x 4.4 x 6.4 cm. The endometrial stripe is poorly evaluated due to fibroid disease. The uterus is smooth in contour and has heterogeneous myometrial echogenicity. FIBROIDS: There are 3 fibroids seen. 1. Location: Rightward body, myometrial. Size: 1.6 x 1.5 x 1.9 cm. Fibroid characteristics: Heterogeneous echotexture. 2. Location: Fundus, myometrial. Size: 3.0 x 2.9 x 2.5 cm. Prior: 2.6 x 2.5 x 2.8 cm. Fibroid characteristics: Heterogeneously isoechoic. 3. Location: Rightward upper body, myometrial. Size: 2.4 x 2.0 x 1.5 cm. Prior: 1.9 x 1.3 x 1.8 cm. Fibroid characteristics: Heterogeneous echotexture. Adnexa: Both ovaries are visualized. There is no pelvic ascites or fluid collection. No adnexal mass is seen. Right ovary measures 2.8 x 1.9 x 1.6 cm, volume 4.5 mL. Left ovary measures 2.4 x 1.9 x 1.1 cm, volume 2.6 mL. US/US pelvic and transvaginal IMPRESSION: Uterine fibroids are noted as above. There is secondary nonvisualization of the endometrial stripe.
== END 2021-06-28 13:45 | disposition home or self-care (01) ==
LOC: HO.US 13:44
PROVIDERS: PCP Registered Nurse Community Health; Visit Provider Obstetrics & Gynecology
DX: N95.0 Postmenopausal bleeding (principal)
CPT/HCPCS: 76830; 76856

== ENCOUNTER 2021-07-15 14:00 | Outpatient (REF) | payer OTHER, SELFPAY | END 2021-07-15 14:01 | disposition home or self-care (01) | LOC: HO.LAB 14:00 | PROVIDERS: PCP Registered Nurse Community Health; Visit Provider Obstetrics & Gynecology | DX: N95.0 Postmenopausal bleeding (principal); D25.9 Leiomyoma of uterus, unspecified | CPT/HCPCS: 58100; 88305; 99212 ==

== ENCOUNTER → 2021-08-01 13:33 | Outpatient (BNVA) | payer OTHER, SELFPAY | PROVIDERS: PCP Registered Nurse Community Health; Referring Provider Registered Nurse Community Health; Visit Provider Nurse Practitioner | DX: N95.0 Postmenopausal bleeding (principal); K21.9 Gastro-esophageal reflux disease without esophagitis; K58.9 Irritable bowel syndrome, unspecified; K91.5 Postcholecystectomy syndrome; K30 Functional dyspepsia; G43.909 Migraine, unspecified, not intractable, without status migrainosus | CPT/HCPCS: 99212 ==

== ENCOUNTER 2021-08-23 16:12 | Outpatient (REF) | payer OTHER, SELFPAY ==
--- NOTE | ~2021-08-23 | US_ITS ---
EXAMINATION: US THYROID CLINICAL INFORMATION: Nontoxic multinodular goiter. COMPARISON: Ultrasound soft tissue head/neck thyroid dated 07/07/2020 and 05/05/2019. TECHNIQUE: Linear transducer grayscale and color Doppler examination with attention to the region of the thyroid. FINDINGS: SIZE: Measurements of the thyroid lobes and nodules are given in sagittal, anteroposterior and transverse dimensions respectively. Right Thyroid Lobe: 5.6 x 1.8 x 2.0 cm, volume 10.4 mL. Previously 5.8 x 2.0 x 1.7 cm, volume 10.6 mL. Parenchyma: The gland echotexture is heterogeneous. Thyroid vascularity is normal. Left Thyroid Lobe: 5.6 x 2.2 x 2.3 cm, volume 15.0 mL. Previously 5.9 x 2.1 x 2.0 cm, volume 13.1 mL. Parenchyma: The gland echotexture is heterogeneous. Thyroid vascularity is normal. Isthmus: 0.2 cm in maximum AP dimension. Previously 0.1 cm. Estimated total number of nodules greater than or equal to 1 cm: 5. [employer] nodules are described as follows: 1. Location: Right superior. Size: 0.7 x 0.5 x 0.6 cm, volume 0.1 mL. Previously: 0.7 x 0.5 x 0.6 cm, volume 0.1 mL. Nodule characteristics: Composition: Solid (2). Echogenicity: Very hypoechoic (3). Shape: Not taller than wide (0). Margins: Smooth (0). Echogenic Foci: None (0). ACR TI-RADS total points: 5 Previous: 4 ACR TI-RADS category: 4 Previous: 4 Significant change in size (>/= 20% in 2 dimensions and minimal increase of 2 mm or 50% or greater increase in volume): No Change in features: No Change in ACR TI-RADS risk category: No 2. Location: Right superior. Size: 1.0 x 0.8 x 0.9 cm, volume 0.4 mL. Previously: 0.9 x 0.8 x 0.8 cm, volume 0.3 mL. Nodule characteristics: Composition: Solid (2). Echogenicity: Isoechoic (1). Shape: Not taller than wide (0). Margins: Smooth (0). Echogenic Foci: None (0). ACR TI-RADS total points: 3 Previous: 4 ACR TI-RADS category: 3 Previous: 4 Significant change in size (>/= 20% in 2 dimensions and minimal increase of 2 mm or 50% or greater increase in volume): No Change in features: No Change in ACR TI-RADS risk category: No 3. Location: Right superior/mid. Size: 0.9 x 0.7 x 0.8 cm, volume 0.3 mL. Previously: 1.0 x 0.8 x 0.8 cm, volume 0.3 mL. Nodule characteristics: Composition: Solid/almost completely solid (2). Echogenicity: Hypoechoic (2). Shape: Not taller than wide (0). Margins: Smooth (0). Echogenic Foci: None (0). ACR TI-RADS total points: 4 Previous: 0 ACR TI-RADS category: 4 Previous: 1 Significant change in size (>/= 20% in 2 dimensions and minimal increase of 2 mm or 50% or greater increase in volume): No Change in features: No Change in ACR TI-RADS risk category: Yes, based on characterization 4. Location: Right mid. Size: 1.2 x 0.7 x 1.0 cm, volume 0.4 mL. Previously: Not documented on the prior study. Nodule characteristics: Composition: Solid (2). Echogenicity: Hypoechoic (2). Shape: Not taller than wide (0). Margins: Ill-defined (0). Echogenic Foci: None (0). ACR TI-RADS total points: 4 ACR TI-RADS category: 4 5. Location: Right inferior. Size: 0.5 x 0.5 x 0.5 cm, volume 0.07 mL. Previously: Not documented on the prior study. Nodule characteristics: Composition: Mixed cystic and solid (1). Echogenicity: Hypoechoic (2). Shape: Not taller than wide (0). Margins: Ill-defined (0). Echogenic Foci: None (0). ACR TI-RADS total points: 3 ACR TI-RADS category: 3 6. Location: Right inferior. Size: 0.5 x 0.4 x 0.4 cm, volume 0.04 mL. Previously: Not documented on the prior study. Nodule characteristics: Composition: Solid (2). Echogenicity: Isoechoic (1). Shape: Not taller than wide (0). Margins: Ill-defined (0). Echogenic Foci: None (0). ACR TI-RADS total points: 3 ACR TI-RADS category: 3 7. Location: Left superior/mid. Size: 2.2 x 1.8 x 1.9 cm, volume 4.0 mL. Previously: 2.2 x 1.8 x 1.9 cm, volume 4.1 mL. Nodule characteristics: Composition: Solid (2). Echogenicity: Isoechoic (1). Shape: Not taller than wide (0). Margins: Smooth (0). Echogenic Foci: None (0). ACR TI-RADS total points: 3 ACR TI-RADS category: 3 Significant change in size (>/= 20% in 2 dimensions and minimal increase of 2 mm or 50% or greater increase in volume): No Change in features: No Change in ACR TI-RADS risk category: No 8. Location: Left inferior. Size: 0.6 x 0.5 x 0.6 cm, volume 0.09 mL. Previously: 0.7 x 0.5 x 0.7 cm, volume 0.1 mL. Nodule characteristics: Composition: Solid (2). Echogenicity: Isoechoic (1). Shape: Not taller than wide (0). Margins: Smooth (0). Echogenic Foci: None (0). ACR TI-RADS total points: 3 ACR TI-RADS category: 3 9. Location: Left inferior. Size: 0.4 x 0.3 x 0.5 cm, volume 0.03 mL. Previously: Not documented on the prior study. Nodule characteristics: Composition: Solid (2). Echogenicity: Hypoechoic (2). Shape: Not taller than wide (0). Margins: Ill-defined (0). Echogenic Foci: None (0). ACR TI-RADS total points: 4 ACR TI-RADS category: 4 10. Location: Left inferior. Size: 1.2 x 0.9 x 0.7 cm, volume 0.4 mL. Previously: 1.2 x 0.9 x 0.8 cm, volume 0.5 mL. Nodule characteristics: Composition: Solid (2). Echogenicity: Hyperechoic (1). Shape: Not taller than wide (0). Margins: Smooth (0). Echogenic Foci: None (0). ACR TI-RADS total points: 3 Previous: 6 ACR TI-RADS category: 3 Previous: 4 Significant change in size (>/= 20% in 2 dimensions and minimal increase of 2 mm or 50% or greater increase in volume): No Change in features: No Change in ACR TI-RADS risk category: No NODES: No lymphadenopathy is seen in the tissue surrounding the thyroid gland. US/US thyroid IMPRESSION: Multinodular goiter. The previously measured nodules are without significant change from prior. On this study additional nodules were characterized, though on future imaging only the 5 most prominent nodules will be characterized. Previous biopsies have been performed. Given the lack of significant change in appearance from prior, continued follow-up would be suggested. ACR TI-RADS RECOMMENDATION REFERENCE: Ultrasound-guided fine-needle aspiration, followup ultrasound, no further follow up. * TR1 (0 point) and TR 2 (2 points): No FNA or follow up * TR3 (3 points): FNA if more than or equal to 2.5 cm in maximum dimension, followup ultrasound in 1, 3 and 5 years if 1.5 to 2.4 cm in maximum dimension. * TR4 (4-6 points): FNA if more than or equal to 1.5 cm in maximum dimension, followup ultrasound in 1, 2, 3 and 5 years if 1 to 1.4 cm in maximum dimension. * TR5 (more than or equal to 7 points): FNA if more than or equal to 1 cm in maximum dimension, followup ultrasound every year for 5 years if 0.5 to 0.9 cm in maximum dimension. * TR3, TR4 or TR5 nodules that are below the size threshold for follow up receive no follow up.
== END 2021-08-23 16:13 | disposition home or self-care (01) ==
LOC: HO.US 16:12
PROVIDERS: Visit Provider Internal Medicine Endocrinology, Diabetes & Metabolism
DX: E04.2 Nontoxic multinodular goiter (principal)
CPT/HCPCS: 76536

== ENCOUNTER → 2021-09-23 13:58 | Outpatient (BNVA) | payer OTHER, SELFPAY | PROVIDERS: PCP Registered Nurse Community Health; Visit Provider Internal Medicine Endocrinology, Diabetes & Metabolism | DX: E04.2 Nontoxic multinodular goiter (principal) | CPT/HCPCS: 99212 ==

== ENCOUNTER → 2021-10-04 14:02 | Outpatient (BNVA) | payer OTHER, SELFPAY | PROVIDERS: PCP Registered Nurse Community Health; Referring Provider Registered Nurse Community Health; Visit Provider Nurse Practitioner | DX: K21.9 Gastro-esophageal reflux disease without esophagitis (principal); R63.4 Abnormal weight loss | CPT/HCPCS: 99212 ==

== ENCOUNTER 2021-11-01 14:24 | Outpatient (REF) | payer OTHER, SELFPAY ==
--- NOTE | ~2021-11-01 | XR_ITS ---
EXAMINATION: XR ELBOW, LEFT XR SHOULDER, LEFT CLINICAL INFORMATION: Left shoulder pain. Left elbow pain. COMPARISON: None TECHNIQUE: AP, lateral and oblique views of the left elbow. AP, Grashey, transscapular Y and axillary views of the left shoulder. FINDINGS: Left elbow: Alignment is normal. Joint spaces are maintained. No significant joint effusion. No displaced fracture or dislocation. Left shoulder: Alignment is anatomic. Acromioclavicular and glenohumeral joint spaces are maintained. No displaced fracture or dislocation. No abnormal soft tissue calcifications. XR/XR shoulder LT min 2V IMPRESSION: No acute abnormality.
--- NOTE | ~2021-11-01 | XR_ITS ---
EXAMINATION: XR ELBOW, LEFT XR SHOULDER, LEFT CLINICAL INFORMATION: Left shoulder pain. Left elbow pain. COMPARISON: None TECHNIQUE: AP, lateral and oblique views of the left elbow. AP, Grashey, transscapular Y and axillary views of the left shoulder. FINDINGS: Left elbow: Alignment is normal. Joint spaces are maintained. No significant joint effusion. No displaced fracture or dislocation. Left shoulder: Alignment is anatomic. Acromioclavicular and glenohumeral joint spaces are maintained. No displaced fracture or dislocation. No abnormal soft tissue calcifications. XR/XR elbow LT 2V IMPRESSION: No acute abnormality.
== END 2021-11-01 14:25 | disposition home or self-care (01) ==
LOC: HO.XRAY 14:24
PROVIDERS: Visit Provider Registered Nurse Community Health
DX: M25.512 Pain in left shoulder (principal); M25.522 Pain in left elbow
CPT/HCPCS: 73030; 73070

== ENCOUNTER 2021-12-20 06:47 | Outpatient (REF) | payer OTHER, SELFPAY ==
[2021-12-20 09:30] LABS: Free T4 (Free Thyroxine) 0.96 ng/dL (0.71-1.85); Thyroid Stimulating Hormone 1.41 uIU/mL (0.32-4.0)
== END 2021-12-20 06:48 | disposition home or self-care (01) ==
LOC: HO.LAB 06:47
PROVIDERS: PCP Registered Nurse Community Health; Visit Provider Internal Medicine Endocrinology, Diabetes & Metabolism
DX: E04.2 Nontoxic multinodular goiter (principal)
CPT/HCPCS: 36415; 84439; 84443

== ENCOUNTER 2021-12-20 07:00 | Outpatient (RCR) | payer OTHER, SELFPAY ==
[2021-12-06 06:59] VITALS: BP 123/62; PULSE 54; O2SAT 97
== END 2022-03-28 10:32 | disposition home or self-care (01) ==
LOC: HO.PT 07:00
PROVIDERS: PCP Registered Nurse Community Health; Visit Provider Registered Nurse Community Health
DX: M25.512 Pain in left shoulder (principal)
CPT/HCPCS: 97110; 97140; 97162; 97530

== ENCOUNTER 2022-03-15 13:30 | Outpatient (REF) | payer OTHER, SELFPAY ==
--- NOTE | ~2022-03-15 | MM_ITS ---
EXAMINATION: MM SCREENING DIGITAL BREAST TOMOSYNTHESIS, BILATERAL CLINICAL INFORMATION: Screening. Asymptomatic. The lifetime risk of breast cancer based on the Tyrer-Cuzick Model is 8%. COMPARISON: Mammography: 03/09/2021, 03/05/2020, 10/01/2018 TECHNIQUE: Digital breast tomosynthesis is performed in both the craniocaudal and mediolateral oblique views along with computer-aided detection (CAD). Synthesized 2D images are generated from the tomosynthesis. FINDINGS: The breasts are heterogeneously dense, which may obscure small masses (ACR BI-RADS breast composition Category c). There are no significant masses, abnormal calcifications, or other abnormalities. There are stable tightly grouped calcifications mid upper outer left breast similar to prior studies. Right breast has biopsy clip marker upper outer quadrant. The axilla and skin contours are unremarkable. There are no significant changes from prior studies. MM/MM tomosynthesis screening BI IMPRESSION: No mammographic evidence of malignancy. ASSESSMENT: BI-RADS 2: Benign RECOMMENDATION: Routine annual mammography screening. This patient's information was entered into a reminder system with a target due date for their next mammogram.
== END 2022-03-15 13:31 | disposition home or self-care (01) ==
LOC: HO.MAMMO 13:30
PROVIDERS: PCP Registered Nurse; Visit Provider Registered Nurse
DX: Z12.31 Encounter for screening mammogram for malignant neoplasm of breast (principal)
CPT/HCPCS: 77063; 77067

== ENCOUNTER 2022-05-25 08:51 | Outpatient (REF) | payer OTHER, SELFPAY ==
--- NOTE | ~2022-05-25 | XR_ITS ---
EXAMINATION: XR HAND, LEFT XR HAND, RIGHT CLINICAL INFORMATION: Joint pain of both hands COMPARISON: None TECHNIQUE: 3 views of the left hand. 3 views of the right hand. FINDINGS: Left hand: No fracture or dislocation. Alignment is maintained. Joint space narrowing is greatest at the third and fifth digit distal interphalangeal joints with associated osteophyte formation. No osseous erosions. The soft tissues are unremarkable. Right hand: No fracture or dislocation. Alignment is maintained. Joint space narrowing with osteophyte formation throughout the interphalangeal joints, greatest at the third digit. There is subchondral sclerosis present with the most prominent osteophytes. There is also slight ulnar angulation of the distal phalanx. No osseous erosions. The soft tissues are unremarkable. XR/XR hand RT min 3V IMPRESSION: Osteoarthritic changes of both hands, most severe at the right hand third digit distal interphalangeal joint. No osseous erosions.
--- NOTE | ~2022-05-25 | XR_ITS ---
EXAMINATION: XR HAND, LEFT XR HAND, RIGHT CLINICAL INFORMATION: Joint pain of both hands COMPARISON: None TECHNIQUE: 3 views of the left hand. 3 views of the right hand. FINDINGS: Left hand: No fracture or dislocation. Alignment is maintained. Joint space narrowing is greatest at the third and fifth digit distal interphalangeal joints with associated osteophyte formation. No osseous erosions. The soft tissues are unremarkable. Right hand: No fracture or dislocation. Alignment is maintained. Joint space narrowing with osteophyte formation throughout the interphalangeal joints, greatest at the third digit. There is subchondral sclerosis present with the most prominent osteophytes. There is also slight ulnar angulation of the distal phalanx. No osseous erosions. The soft tissues are unremarkable. XR/XR hand LT min 3V IMPRESSION: Osteoarthritic changes of both hands, most severe at the right hand third digit distal interphalangeal joint. No osseous erosions.
== END 2022-05-25 08:52 | disposition home or self-care (01) ==
LOC: HO.XRAY 08:51
PROVIDERS: PCP Registered Nurse; Visit Provider Registered Nurse
DX: M25.541 Pain in joints of right hand (principal); M25.542 Pain in joints of left hand
CPT/HCPCS: 73130

== ENCOUNTER 2022-07-24 12:22 | Outpatient (REF) | payer OTHER, SELFPAY ==
--- NOTE | ~2022-07-24 | XR_ITS ---
EXAMINATION: XR KNEE AP STANDING XR KNEE, LEFT CLINICAL INFORMATION: Pain. COMPARISON: Radiographs dated 06/13/2021. TECHNIQUE: AP bilateral standing view of the knees was obtained. Lateral and axial views of the left knee were obtained. FINDINGS: Bony alignment and mineralization are normal. The bilateral lateral and medial joint space compartments are symmetric and well-maintained. There is very mild peripheral osteophyte formation of the medial joint space compartment. No significant varus or valgus configuration is seen. The left patellofemoral compartment is well-maintained, and there is no left knee joint effusion. No foreign body is seen. XR/XR knee LT 2V IMPRESSION: 1. There is minimal osteoarthritic change of the medial joint space compartments of the bilateral knees. 2. No fracture, dislocation or joint effusion is seen.
--- NOTE | ~2022-07-24 | XR_ITS ---
EXAMINATION: XR KNEE AP STANDING XR KNEE, LEFT CLINICAL INFORMATION: Pain. COMPARISON: Radiographs dated 06/13/2021. TECHNIQUE: AP bilateral standing view of the knees was obtained. Lateral and axial views of the left knee were obtained. FINDINGS: Bony alignment and mineralization are normal. The bilateral lateral and medial joint space compartments are symmetric and well-maintained. There is very mild peripheral osteophyte formation of the medial joint space compartment. No significant varus or valgus configuration is seen. The left patellofemoral compartment is well-maintained, and there is no left knee joint effusion. No foreign body is seen. XR/XR knee standing BI IMPRESSION: 1. There is minimal osteoarthritic change of the medial joint space compartments of the bilateral knees. 2. No fracture, dislocation or joint effusion is seen.
== END 2022-07-24 12:23 | disposition home or self-care (01) ==
LOC: HO.HOSX 12:22
PROVIDERS: Visit Provider Orthopaedic Surgery
DX: M17.12 Unilateral primary osteoarthritis, left knee (principal); M17.11 Unilateral primary osteoarthritis, right knee
CPT/HCPCS: 73560; 73565; 99212

== ENCOUNTER 2022-08-28 14:52 | Outpatient (REF) | payer OTHER, SELFPAY ==
[2022-09-01 04:14] LABS: HPV 16 RNA NOT DETECTED (NOT DETECTED); HPV mRNA E6/E7 rflx Detected (Not Detected)
== END 2022-08-28 14:53 | disposition home or self-care (01) ==
LOC: HO.LNP 14:52
PROVIDERS: PCP Registered Nurse; Visit Provider Obstetrics & Gynecology
DX: Z01.419 Encounter for gynecological examination (general) (routine) without abnormal findings (principal); Z11.51 Encounter for screening for human papillomavirus (HPV); N95.0 Postmenopausal bleeding; D21.9 Benign neoplasm of connective and other soft tissue, unspecified
CPT/HCPCS: 87624; 87625; 88142; 99212

== ENCOUNTER 2022-08-29 13:38 | Outpatient (REF) | payer OTHER, SELFPAY ==
--- NOTE | ~2022-08-29 | US_ITS ---
EXAMINATION: US PELVIS CLINICAL INFORMATION: Postmenopausal bleed. Myoma COMPARISON: Ultrasound pelvis 06/28/2021 TECHNIQUE: Ultrasound of the pelvis is performed using both transabdominal and transvaginal transducers along with Doppler. Transvaginal imaging is performed due to inadequate visualization transabdominally. FINDINGS: UTERUS: The uterus is anteverted and measures 8.4 cm in length, 4.3 cm in AP and 5.5 cm in transverse dimension. The double wall endometrial thickness cannot be evaluated due to distortion from underlying fibroids. The uterus is smooth in contour and has normal myometrial echogenicity. There are multiple hypoechoic lesions consistent with fibroids. 1. Lesion lower posterior uterus, measures 1.4 x 1.3 x 1.4 cm. It is new. 2. Right lower uterus lesion, measures 1.9 x 1.7 x 1.9 cm. Previously it measured 1.6 x 1.5 x 1.9 cm. 3. Lesion right mid uterus, measures 1.8 x 1.7 x 1.7 cm. Previously it measured 2.4 x 2.0 x 1.5 cm. 4. Lesion anterior upper uterus, measures 2.6 x 2.2 x 3.1 cm. Previously it measured 3.0 x 2.9 x 2.5 cm. 5. Lesion in the fundal uterus, measures 1.7 x 1.6 x 1.6 cm. It is new. ADNEXA: Both ovaries are are not visualized. There is no free fluid in the cul-de-sac. US/US pelvic and transvaginal IMPRESSION: 1. Multiple uterine fibroids as described above. The fibroids distort the endometrial stripe hence cannot be measured. 2. The ovaries are not seen. 3. There is no free fluid in the cul-de-sac.
== END 2022-08-29 13:39 | disposition home or self-care (01) ==
LOC: HO.HMGCX 13:38
PROVIDERS: PCP Registered Nurse; Visit Provider Obstetrics & Gynecology
DX: D21.9 Benign neoplasm of connective and other soft tissue, unspecified (principal)
CPT/HCPCS: 76830; 76856

== ENCOUNTER 2022-09-01 10:15 | Day surgery (SDC) | payer OTHER, SELFPAY ==
--- NOTE | 2022-08-31 12:06 | HO.ANESPROP2 ---
Documented by User: Iveth Arreaga NP 08/31/22 12:07 HPI - Anesthesia Eval Consult details Narrative: 62yo F for D&C Hysteroscopy,poss myomectomy,poss polypectomy PMFSH Active Problems Active Problems: All Active Problems (Updated 08/28/22 @ 15:02 by Flaco Chatterjee MD) Osteoarthritis of right knee (Acute) Osteoarthritis of left knee (Acute) Weight loss (Acute) Myoma (Acute) Osteoarthritis of patellofemoral joint (Acute) Postmenopausal bleeding (Acute) Well woman exam (Acute) GERD (gastroesophageal reflux disease) (Acute) Migraines (Acute) Painful arc syndrome of right shoulder (Acute) Karina's disease (Acute) Non-toxic multinodular goiter (Acute) Osteoarthritis of left hip (Acute) Weight loss, non-intentional (Acute) Polyarthralgia (Acute) Neutropenia (Acute) IBS (irritable bowel syndrome) (Acute) Dysphagia (Acute) Constipation (Acute) Chronic pain syndrome (Acute) Spondylosis, lumbar, with myelopathy (Acute) Sacroiliitis (Acute) Past Medical History Medical History Chronic pain syndrome Elevated cholesterol Fibromyalgia GERD (gastroesophageal reflux disease) Karina's disease Hiatal hernia History of multinodular goiter Hx of migraines IBS (irritable bowel syndrome) Non-toxic multinodular goiter Osteoarthritis of left hip Sacroiliitis Schatzki's ring Spondylosis, lumbar, with myelopathy Family History Family History Father Unknown family medical history Mother Arthritis Diverticulitis Gastritis Breast cancer Chronic asthma Adenomatous colon polyp HTN (hypertension) Maternal Grandmother Colon cancer Surgical History Surgical History History of bilateral tubal ligation History of cholecystectomy History of esophagogastroduodenoscopy (EGD) Hx of arthroscopy of right knee Hx of colonoscopy Hx of dilation and curettage Social History Social History Household Members: None Housing: House Are you a primary home care coordinator to a significant other at home: Yes (mother) Do you presently have visiting nurse or other home services: No Alcohol intake: never Patient Tobacco Use Status: Former Tobacco user Quit Date: 20 YRS AGO service: No Current occupational status: employed 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 Allergies Allergy/AdvReac Type Severity Reaction Status Date / Time No Known Allergies Allergy Verified 08/28/22 14:56 [No Known Allergies*] Home Medications Medication Instructions Recorded Confirmed Last Taken Type acetaminophen 650 mg 1 tab PO Q8H PRN Pain 04/12/20 05/05/22 Unknown History tablet,extended release (Mapap Arthritis Pain) diphenhydramine HCl 25 mg capsule 25 mg PO BEDTIME PRN Insomnia 11/03/20 05/05/22 Unknown History ibuprofen 800 mg tablet 800 mg PO Q8H PRN Pain 11/15/20 05/05/22 08/30/22 History duloxetine 30 mg capsule,delayed 30 mg PO DAILY 05/05/22 05/05/22 Unknown History release (Cymbalta) capsaicin 0.025 % topical cream appl topical BID 07/24/22 Unknown History diclofenac sodium 1 % topical gel g topical BID 07/24/22 Unknown History lidocaine 5 % topical ointment topical 07/24/22 Unknown History amitriptyline 10 mg tablet 5 mg PO BEDTIME PRN Insomnia 08/28/22 Unknown History Centrum Silver Women 1 PO DAILY 09/01/22 Unknown History omega 1-wvs-fzr-fish oil 1,000 mg 2 cap PO DAILY 09/01/22 09/01/22 Unknown History (120 mg-180 mg) capsule (Fish Oil) Exam Exam Date and Time: August 31, 2022 1206 Pertinent Lab Results Pertinent Lab Results: Laboratory Tests 05/05/22 05/05/22 14:37 14:37 WBC 4.2 L Hgb 11.4 L Hct 35.3 L Plt Count 258 Sodium 140 Potassium 3.9 Chloride 106 Carbon Dioxide 26 BUN 17 H Creatinine 0.87 Assessment and Plan Assessment Anesthesia Assessment: Chart Reviewed Documented by User: Edna Matos MD 09/01/22 11:14 PMFSH Active Problems Active Problems: All Active Problems (Updated 09/01/22 @ 09:07 by Edna Matos MD) Osteoarthritis of right knee (Acute) Osteoarthritis of left knee (Acute) Weight loss (Acute) Myoma (Acute) Osteoarthritis of patellofemoral joint (Acute) Postmenopausal bleeding (Acute) Well woman exam (Acute) GERD (gastroesophageal reflux disease) (Acute) Migraines (Acute) Painful arc syndrome of right shoulder (Acute) Karina's disease (Acute) Non-toxic multinodular goiter (Acute) Osteoarthritis of left hip (Acute) Weight loss, non-intentional (Acute) Polyarthralgia (Acute) Neutropenia (Acute) IBS (irritable bowel syndrome) (Acute) Dysphagia (Acute) Constipation (Acute) Chronic pain syndrome (Acute) Spondylosis, lumbar, with myelopathy (Acute) Sacroiliitis (Acute) Past Medical History Medical History Chronic pain syndrome Elevated cholesterol Fibromyalgia GERD (gastroesophageal reflux disease) Karina's disease Hiatal hernia History of multinodular goiter Hx of migraines IBS (irritable bowel syndrome) Non-toxic multinodular goiter Osteoarthritis of left hip Sacroiliitis Schatzki's ring Spondylosis, lumbar, with myelopathy Family History Family History Father Unknown family medical history Mother Arthritis Diverticulitis Gastritis Breast cancer Chronic asthma Adenomatous colon polyp HTN (hypertension) Maternal Grandmother Colon cancer Family history of problems with anesthesia: Yes (Slow awakening in daughter) Surgical History Surgical History History of bilateral tubal ligation History of cholecystectomy History of esophagogastroduodenoscopy (EGD) Hx of arthroscopy of right knee Hx of colonoscopy Hx of dilation and curettage History of Problems with Anesthesia: No Social History Social History Household Members: None Housing: House Are you a primary home care coordinator to a significant other at home: Yes (mother) Do you presently have visiting nurse or other home services: No Alcohol intake: never Patient Tobacco Use Status: Former Tobacco user Quit Date: 20 YRS AGO service: No Current occupational status: employed 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 Allergies Allergy/AdvReac Type Severity Reaction Status Date / Time No Known Allergies Allergy Verified 08/28/22 14:56 [No Known Allergies*] Home Medications Medication Instructions Recorded Confirmed Last Taken Type acetaminophen 650 mg 1 tab PO Q8H PRN Pain 04/12/20 05/05/22 Unknown History tablet,extended release (Mapap Arthritis Pain) diphenhydramine HCl 25 mg capsule 25 mg PO BEDTIME PRN Insomnia 11/03/20 05/05/22 Unknown History ibuprofen 800 mg tablet 800 mg PO Q8H PRN Pain 11/15/20 05/05/22 08/30/22 History duloxetine 30 mg capsule,delayed 30 mg PO DAILY 05/05/22 05/05/22 Unknown History release (Cymbalta) capsaicin 0.025 % topical cream appl topical BID 07/24/22 Unknown History diclofenac sodium 1 % topical gel g topical BID 07/24/22 Unknown History lidocaine 5 % topical ointment topical 07/24/22 Unknown History amitriptyline 10 mg tablet 5 mg PO BEDTIME PRN Insomnia 08/28/22 Unknown History Centrum Silver Women 1 PO DAILY 09/01/22 Unknown History omega 6-ijb-mwo-fish oil 1,000 mg 2 cap PO DAILY 09/01/22 09/01/22 Unknown History (120 mg-180 mg) capsule (Fish Oil) Exam Height,Weight and Vital Signs: Height 5 ft 3 in Weight 61.235 kg Vital Signs Temp Pulse Resp BP Pulse Ox O2 Del Method 09/01/22 10:29 97.1 F 48 L 15 113/67 99 Room Air Airway Mallampati Class: II TM Dist: >3cm Neck ROM: Limited (Extension ok but posterior cervical disc problems with neck pain. No radiculopathy.) Denture: Upper Partial: Lower Loose/Missing/Broken Teeth: Yes (Denies broken or loose teeth) Heart: RRR Lungs: CTAB Assessment and Plan Assessment Anesthesia Assessment: Anesthesia Plan Discussed Final Anesthetic Review Family History of Problems with Anesthesia: Yes (Slow awakening in daughter) History of Problems with Anesthesia: No NPO: Yes ASA Class: II Final Preanesthetic Review: No Changes in Pt Med Stat, Meds/Allgs Chart Reviewed, Consent Obtained/Reviewed and Anes Risks/Benef Reviewed Patient Risk: Low Procedure Risk: Low Assessment/Block/Sedation in SS: Assess/Block/Sedation-SS Anesthetic Plan Anesthetic Plan: GA Disposition: Standard PACU
[2022-09-01 10:25] VITALS: BMI 23.9
[2022-09-01 10:29] VITALS: BP 113/67; PULSE 48; RESP 15; TEMP 36.2; O2SAT 99
--- NOTE | 2022-09-01 10:29 | MHC.SHP ---
Pre-Procedural Eval Section A Date of Service: 09/01/22 The patient is an INPATIENT: No Changes since office visit: No Cold of Flu in the past 2 weeks, No New Medical Problems, No Changes in Medication and No Patient answered all questions The History & Physical has been completed within 30 days and I have reviewed it.: Yes Section B Chief Complaint: Postmenopausal bleeding Allergies: Allergies Allergy/AdvReac Type Severity Reaction Status Date / Time No Known Allergies Allergy Verified 08/28/22 14:56 [No Known Allergies*] Plan Diagnosis/Plan: Unchanged I have reviewed the history and physical and performed a pertinent physical examination on my patient. No changes have occurred unless specified. Time Spent With Patient Time: Total time managing care of this patient today ____ minutes.
[2022-09-01] MEDS: Lactated Ringers 1,000 ML 100 ML IVCONT (10:52)
--- NOTE | 2022-09-01 12:36 | PM.OP ---
Brief Operative Note Date of Service: 09/01/22 Post-op diagnosis: same (Endometrial polyp) Procedure: Hysteroscopy D&C, Polypectomy Surgeon: Flaco Chatterjee MD Anesthesia: GLMA Was an Park Activities Coordinator used for this Procedure?: No Estimated blood loss (mL): 0 Pathology: other (Endometrial Scrapping. Polyp) Condition: stable Disposition: PACU
--- NOTE | 2022-09-01 12:36 | W.PM.OPN ---
Operative Note Operative Note Date of Service: 09/01/22 Narrative: Preop Diagnosis: Postmenopausal bleeding Operation: Diagnostic Hysteroscopy, Dilataion & Curettage and polypectomy Post Op Diagnosis: Endometrial Polyp QBL: Minimal Anesthesia: GLMA Surgeon: Flaco Chatterjee MD Customer Service Advisor: None Complication: None Pathology: Endometrial Scrapings, Endometrial polyp Procedure: The patient was put in the dorsal lithotomy position, scrubbed, and draped in the usual manner. A sterile speculum was inserted in the patient's vagina. The anterior lip of the cervix was grasped with a single tooth tenaculum. The cervix was dilated up to 5 mm, then the scope was inserted in the patient's uterus. Inspection revealed endometrial polyp. The Myosure Reach device was used; it was introduced through the operative channel and polypectomy done with no complications. The scope was then taken out from the uterine cavity, sharp curettings was carried on with moderate amount of tissues retrieved. At the end of the procedure, all instruments were taken out of the patient uterine and vaginal cavity. The single tooth tenaculum was removed and homeostasis was assured using pressure,. The patient tolerated the procedure well and was transferred to the PACU in a stable condition.
[2022-09-01 12:42] VITALS: BP 114/60; PULSE 68; RESP 16; TEMP 36.3; O2SAT 98
[2022-09-01 12:47] VITALS: BP 119/37; PULSE 73; RESP 16; O2SAT 99
[2022-09-01 12:52] VITALS: BP 102/58; PULSE 73; RESP 16; O2SAT 100
[2022-09-01 12:57] VITALS: BP 103/62; PULSE 69; RESP 16; O2SAT 100
[2022-09-01 13:12] VITALS: BP 106/66; PULSE 76; RESP 16; TEMP 36.4; O2SAT 100
== END 2022-09-01 14:00 | disposition home or self-care (01) ==
PROVIDERS: PCP Registered Nurse; Visit Provider Obstetrics & Gynecology
PROC: 0UDB8ZZ Extraction of Endometrium, Via Natural or Artificial Opening Endoscopic (ICD-10-PCS; CPT 58558; principal; 2022-09-01 11:10)
DX: N95.0 Postmenopausal bleeding (principal); N84.0 Polyp of corpus uteri; D21.9 Benign neoplasm of connective and other soft tissue, unspecified; Z98.51 Tubal ligation status; G89.4 Chronic pain syndrome; M47.816 Spondylosis without myelopathy or radiculopathy, lumbar region; M46.1 Sacroiliitis, not elsewhere classified; E04.2 Nontoxic multinodular goiter; M16.12 Unilateral primary osteoarthritis, left hip; K21.9 Gastro-esophageal reflux disease without esophagitis; E06.3 Autoimmune thyroiditis; Z79.1 Long term (current) use of non-steroidal anti-inflammatories (NSAID); Z79.899 Other long term (current) drug therapy; Z87.891 Personal history of nicotine dependence; Z90.49 Acquired absence of other specified parts of digestive tract
CPT/HCPCS: 58558; 88305; J1100; J1885; J2250; J2405

== ENCOUNTER → 2022-09-14 15:06 | Outpatient (BNVA) | payer OTHER, SELFPAY | PROVIDERS: PCP Registered Nurse; Visit Provider Obstetrics & Gynecology ==

== ENCOUNTER → 2022-09-18 13:44 | Outpatient (BNVA) | payer OTHER, SELFPAY | PROVIDERS: PCP Registered Nurse; Visit Provider Obstetrics & Gynecology | DX: N95.0 Postmenopausal bleeding (principal) | CPT/HCPCS: 99212 ==

== ENCOUNTER → 2022-09-21 13:50 | Outpatient (BNVA) | payer OTHER, SELFPAY | PROVIDERS: PCP Registered Nurse; Visit Provider Internal Medicine Endocrinology, Diabetes & Metabolism | DX: E04.2 Nontoxic multinodular goiter (principal) | CPT/HCPCS: 99212 ==

== ENCOUNTER 2022-10-05 14:29 | Outpatient (REF) | payer OTHER, SELFPAY | END 2022-10-05 14:30 | disposition home or self-care (01) | LOC: HO.LNP 14:29 | PROVIDERS: PCP Registered Nurse; Visit Provider Obstetrics & Gynecology | DX: R87.810 Cervical high risk human papillomavirus (HPV) DNA test positive (principal) | CPT/HCPCS: 57454; 88305; 88342; 88360 ==

== ENCOUNTER 2022-10-05 15:08 | Outpatient (REF) | payer OTHER, SELFPAY ==
[2022-10-05 16:46] LABS: Free T4 (Free Thyroxine) 0.87 ng/dL (0.71-1.85)
== END 2022-10-05 15:09 | disposition home or self-care (01) ==
LOC: HO.LAB 15:08
PROVIDERS: PCP Registered Nurse; Visit Provider Internal Medicine Endocrinology, Diabetes & Metabolism
DX: E04.2 Nontoxic multinodular goiter (principal)
CPT/HCPCS: 36415; 84439; 84443

== ENCOUNTER → 2022-10-26 14:23 | Outpatient (BNVA) | payer OTHER, SELFPAY | PROVIDERS: PCP Registered Nurse; Visit Provider Obstetrics & Gynecology | DX: N87.0 Mild cervical dysplasia (principal) | CPT/HCPCS: 99212 ==

== ENCOUNTER 2022-11-28 13:31 | Outpatient (AMB) | payer OTHER, SELFPAY ==
--- NOTE | 2022-11-28 13:33 | A.OFFVIS_ITS ---
Intake Vital Signs 11/28/22 13:37 Height 5 ft 3 in Weight 134 lb BMI 23.7 BP 99/61 Blood Pressure Location Rt brachial Position Sitting Pulse 54 Intake Visit Reasons: Follow up GERD/medication Intake Note: Patient presents to in office visit today in follow up of GERD. CC: Reports nausea, RUQ abdominal stabbing pain, blood in the stool, epigastric pain, GERD, and constipation. Denies other GI symptoms today. Cinema Operator Required: No Accompanied by: Self / Same As Patient Allergies No Known Allergies [No Known Allergies*] Allergy (Verified 11/09/22 14:38) HPI Follow up GERD/medication HPI Details Assessment & Plan (1) GERD (gastroesophageal reflux disease): ?Code(s): K21.9 - Gastro-esophageal reflux disease without esophagitis ?Plan: She did not tolerate the reglan, she had a cadre of unusual effects including dizziness, arm pain and SERRANO. She persisted with the carafate, but it caused her to feel bloated. At this point, she feels she is ok with how I am, in true her primary care provider was more concerned with her weight loss than she has been.? She feels this is the same course as her grandmother took and is simply genetic. Since the medications of all caused her more problems than they have solved I tell her to discontinue any medications that I have prescribed her. ( I tell her that the gastric emptying study was normal so this leaves us with a mystery.? So far, to date, she has had a benign EGD except for esophageal spasms, a negative gastric emptying study, a relatively benign x-ray in 2019 except for some possible sclerotic bone lesions (this was ordered by Dr. Qureshi I do not know that was followed up on), NO H PYLORI BY BIOPSY,?in fact no pathology on gastric biopsy.) She has undergone a multitude of GI workups without any finding so at this point I think she can continue all of her life and return to us only if she feels she needs our services.? She is quite agreeable to this. (2) Weight loss: ?Code(s): R63.4 - Abnormal weight loss Laboratory Tests 11/09/22 11/09/22 14:34 14:34 WBC 3.8 L RBC 4.12 L Hgb 12.2 Hct 38.0 Plt Count 255 Estimated GFR > 60 Total Bilirubin 0.7 AST 19 ALT 20 Alkaline Phosphata se 76 2019 BARIUM SWALLOW FINDINGS: Following oral adm inistration of thi ck barium and ariel um-coated turkey in upright view th ere is normal prop agation of bolus f rom the oral cavity through the pharynx, esophagu s into stomach wit hout any evidence of obstru ction, narrowing o r stricture. No Sc hatzki ring seen. There is lik isaac some incoordin ation in the dista l esophagus like pseudoachalasia. N o intraluminal brianda ling defect, narro wing or stricture seen. Following placing patient's prone ly ing position and o ral administration of thin barium there is good distention of esophagus without any intral uminal filling def ect or narrowing. There is a small hiatal hernia with mild gastroesopha geal reflux noted TODAY'S VISIT She has continued dysphagia with the feeling of food getting stuck at the GE jxn, she had a negative EGD in 2019 and she did not respond to dilation - but had a barium swallow that showed possible pseudo acalasia. Will repeat barium swallow and consider if esoph manometry is needed. She also c/o waking up with mucus in her throat and waking up choking om my own saliva. She has a new c/o RUQ sharp pain that is not directly r/t eating or moving her bowels, that is very intense and will at times last a 1/2 a day and she has to sit with posture towards the left to alleviate it. Pain does not radiate or move and she cannot identify any particular exacerbating or relieving factors. The only new medication is Cymbalta which her primary care provider put her on for her new diagnosis fibromyalgia syndrome. She is having trouble with CIC, so this could be bowel spasm, senna not working well for her. Well progress to dulcolax OTC and further if needed. She has had 2 episodes of RB on TT. Since her mother had polyps and her grandmother colon cancer she is due for colonoscopy so we will get this ordered anyway. Will start bentyl for pain and this may benefit the esophagus. Will get US of for RUQ pain. Her noodle press operator does not think the swallowing is r/t her goiter. There are no prior problems with anesthesia or sedation. She denies any cardiac or respiratory problems. No ID problems. Her grandmother had CRC, mother had polyps. ROV 3 weeks. ( I tell her that the gastric emptying study was normal so this leaves us with a mystery.? So far, to date, she has had a benign EGD except for esophageal spasms, a negative gastric emptying study, a relatively benign x-ray in 2019 except for some possible sclerotic bone lesions (this was ordered by Dr. Qureshi I do not know that was followed up on), NO H PYLORI BY BIOPSY,?in fact no pathology on gastric biopsy.) [facility] Medical History (Updated 11/28/22 @ 14:04 by MARITZA Mckeon) Cervical high risk HPV (human papillomavirus) test positive Chronic pain syndrome Elevated cholesterol Fibromyalgia GERD (gastroesophageal reflux disease) Karina's disease Hiatal hernia History of multinodular goiter Hx of migraines IBS (irritable bowel syndrome) Non-toxic multinodular goiter Osteoarthritis of left hip Sacroiliitis Schatzki's ring Spondylosis, lumbar, with myelopathy Surgical History History of bilateral tubal ligation History of cholecystectomy History of esophagogastroduodenoscopy (EGD) Hx of arthroscopy of right knee Hx of colonoscopy Hx of dilation and curettage Family History Father Unknown family medical history Mother Arthritis Diverticulitis Gastritis Breast cancer Chronic asthma Adenomatous colon polyp HTN (hypertension) Maternal Grandmother Colon cancer Social History Household Members: None Housing: House Are you a primary childcare center administrator to a significant other at home: Yes (mother) Do you presently have visiting nurse or other home services: No Alcohol intake: never Patient Tobacco Use Status: Former Tobacco user Quit Date: 20 YRS AGO service: No Current occupational status: employed 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 Female 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 History Menstrual Age of Menarche: 13 Review of Systems Const Denies fatigue, Denies fever(s), Denies night sweats, Reports poor appetite and Denies weight loss Eyes Details: glasses Reports requires corrective lenses ENT Reports Normal hearing present, Denies dental pain, Reports dysphagia, Denies hearing loss, Denies mouth pain, Denies odynophagia, Denies throat swelling, Denies tongue swelling and Reports other (Dentition adequate) Card Reports no additional complaints Resp Reports no additional complaints GI Reports abdominal pain, Denies melena, Denies bloating, Reports hematochezia, Reports constipation, Denies GI cramping, Reports dysphagia, Denies excessive flatus, Denies early satiety, Reports heartburn, Denies diarrhea, Reports nausea, Denies odynophagia, Denies vomiting and Denies hematemesis Musc Reports back pain and Reports myalgias Skin/Breast Denies pruritus, Denies lesions, Denies rash and Denies jaundice Neuro Reports Normal hearing present and Denies Abnormal speech present Endo Denies fatigue Aller/Immun Denies throat swelling and Denies tongue swelling Physical Exam Const General: cooperative, no acute distress, well developed and well groomed Nutritional Appearance: average body habitus and well nourished Orientation/consciousness: oriented to person, oriented to place and oriented to time Limitations: No language barrier HEENT Head: Yes normocephalic and Yes atraumatic Eyes General: appearance normal, both eyes and all related structures Pupils: Equal, round and reactive pupils present Neck Neck: Yes normal visual inspection and Yes no lymphadenopathy Thyroid: Thyroid normal Resp Effort & Inspection: normal respiratory effort and able to speak in complete sentences Auscultation: clear to auscultation bilaterally Cardio Rate: regular rate Rhythm: regular rhythm Heart sounds: Normal, physiologic split S2 sound present Peripheral pulses: radial pulses present and posterior tibial pulses present GI Inspection: No distended and No Abdominal panniculus present Palpation (GI): Soft to palpation, nontender, no guarding, not rigid, No hepatosplenomegaly present and Hepatosplenomegaly present Percussion: Yes normal to percussion Auscultation: normal bowel sounds Rectal Exam - Female: deferred Skin General skin exam: no rashes or lesions noted, turgor normal, skin not dry, no jaundice, No spider nevi and no striae Rashes: no rashes Nails: normal Neuro General: oriented to person, oriented to place and oriented to time Cranial nerves: Yes Equal, round and reactive pupils present and Yes Normal hearing present Speech: No Abnormal speech present Extrem General: Yes normal to inspection, No clubbing, No cyanosis and No edema Psych Appearance: grossly normal and well kempt Mental Status: mental status grossly normal Speech and movement: Normal speech and movement present Affect: normal affect Attitude: cooperative Thought process: Normal thought process present and not confabulating Thought content: Normal thought content present Insight: Limited insight present (Psych) Judgement: Limited judgement present (Psych) Assessment & Plan Assessment & Plan (1) RUQ abdominal pain: Code(s): R10.11 - Right upper quadrant pain (2) Dysphagia: Code(s): R13.10 - Dysphagia, unspecified Plan: She has continued dysphagia with the feeling of food getting stuck at the GE jxn, she had a negative EGD in 2019 and she did not respond to dilation - but had a barium swallow that showed possible pseudo acalasia. Will repeat barium swallow and consider if esoph manometry is needed. She also c/o waking up with mucus in her throat and waking up choking om my own saliva. She is continued on her omeprazole 40 mg once a day faithfully. She has a new c/o RUQ sharp pain that is not directly r/t eating or moving her bowels, that is very intense and will at times last a 1/2 a day and she has to sit with posture towards the left to alleviate it. Pain does not radiate or move and she cannot identify any particular exacerbating or relieving factors. The only new medication is Cymbalta which her primary care provider put her on for her new diagnosis fibromyalgia syndrome. She is having trouble with CIC, so this could be bowel spasm, senna not working well for her. Well progress to dulcolax OTC and further if needed. She has had 2 episodes of RB on TT. Since her mother had polyps and her grandmother colon cancer she is due for colonoscopy so we will get this ordered anyway. Will start bentyl for pain and this may benefit the esophagus. Will get US of for RUQ pain. Her noodle press operator does not think the swallowing is r/t her goiter. There are no prior problems with anesthesia or sedation. She denies any cardiac or respiratory problems. No ID problems. Her grandmother had CRC, mother had polyps. ROV 3 weeks. ( I tell her that the gastric emptying study was normal so this leaves us with a mystery.? So far, to date, she has had a benign EGD except for esophageal spasms, a negative gastric emptying study, a relatively benign x-ray in 2019 except for some possible sclerotic bone lesions (this was ordered by Dr. Qureshi I do not know that was followed up on), NO H PYLORI BY BIOPSY,?in fact no pathology on gastric biopsy.) (3) GERD (gastroesophageal reflux disease): Code(s): K21.9 - Gastro-esophageal reflux disease without esophagitis (4) IBS (irritable bowel syndrome): Code(s): K58.9 - Irritable bowel syndrome without diarrhea (5) Weight loss, non-intentional: Comment: wt down 14 lbs in past 2-3 months Code(s): R63.4 - Abnormal weight loss (6) Rectal bleeding: Code(s): K62.5 - Hemorrhage of anus and rectum Orders: Orders [place] barium swallow Today R13.10 - Dysphagia, unspecified US abdomen complete Today R10.11 - Right upper quadrant pain Colonoscopy - GI Use Only Today K62.5 - Hemorrhage of anus and rectum Medications: New bisacodyl (Dulcolax (bisacodyl)) 10 mg (2 x 5 mg) PO BEDTIME 30 days 60 tabs 0RF peg 3350-electrolytes 236-22.74-6.74 -5.86 gram (Golytely) until fecal effluent is clear; do not exceed a total volume of 2,000 mL 240 mL PO Q10M 1 day 4,000 mL 0RF Z12.11 - Encounter for screening for malignant neoplasm of colon dicyclomine 10 mg PO QID PRN 120 caps 3RF abdominal pain R10.11 - Right upper quadrant pain Coding Level of Care Code Est Pt Level 4 (18966) Diagnoses RUQ abdominal pain R10.11 Dysphagia R13.10 GERD (gastroesophageal reflux disease) K21.9 IBS (irritable bowel syndrome) K58.9 Weight loss, non-intentional R63.4 Rectal bleeding K62.5
[2022-11-28 13:37] VITALS: BP 99/61; PULSE 54; BMI 23.7
== END 2022-11-28 14:15 | disposition home or self-care (01) ==
PROVIDERS: PCP Registered Nurse; Visit Provider Nurse Practitioner
DX: R10.11 Right upper quadrant pain (principal); R13.10 Dysphagia, unspecified; K21.9 Gastro-esophageal reflux disease without esophagitis; K58.9 Irritable bowel syndrome, unspecified; R63.4 Abnormal weight loss; K62.5 Hemorrhage of anus and rectum
CPT/HCPCS: 99214

== ENCOUNTER → 2022-11-28 13:31 | Outpatient (BNVA) | payer OTHER, SELFPAY | PROVIDERS: PCP Registered Nurse; Visit Provider Nurse Practitioner | DX: K21.9 Gastro-esophageal reflux disease without esophagitis (principal); K58.9 Irritable bowel syndrome, unspecified; K62.5 Hemorrhage of anus and rectum; R63.4 Abnormal weight loss; R13.10 Dysphagia, unspecified; R10.11 Right upper quadrant pain | CPT/HCPCS: 99212 ==

== ENCOUNTER 2022-12-15 07:44 | Outpatient (REF) | payer OTHER, SELFPAY ==
--- NOTE | ~2022-12-15 | US_ITS ---
EXAMINATION: US ABDOMEN COMPLETE CLINICAL INFORMATION: Right upper quadrant pain. COMPARISON: CT abdomen and pelvis 03/24/2019. TECHNIQUE: Real-time imaging of the abdominal viscera. FINDINGS: PANCREAS: Normal. ABDOMINAL AORTA: The proximal, mid, and distal segments are normal in caliber. INFERIOR VENA CAVA: Visualized portions are normal. LIVER: The liver is normal in size. The liver contour is normal. Increased echogenicity. No focal hepatic lesion. There is no intrahepatic biliary duct dilatation seen. GALLBLADDER: Surgically absent. COMMON BILE DUCT: Dilated measuring 0.9 cm in diameter, not significantly changed, most likely related with chronic post cholecystectomy state. RIGHT KIDNEY: No hydronephrosis. No renal calculi or focal parenchymal lesions. The kidney measures 9.9 cm in maximum dimension. Mild pelvic prominence. No caliectasis. LEFT KIDNEY: Normal. No hydronephrosis. No renal calculi or focal parenchymal lesions. The kidney measures 10.6 cm in maximum dimension. SPLEEN: Normal. The spleen measures 8.9 cm in maximum dimension. FREE FLUID: None. US/US abdomen complete IMPRESSION: 1. Increased echogenicity of the liver is nonspecific, but could be seen in the setting of hepatic steatosis. 2. Status post cholecystectomy with stable dilatation of the common bile duct. 3. Mild right-sided pelviectasis.
== END 2022-12-15 07:45 | disposition home or self-care (01) ==
LOC: HO.US 07:44
PROVIDERS: PCP Registered Nurse; Visit Provider Nurse Practitioner
DX: R10.11 Right upper quadrant pain (principal)
CPT/HCPCS: 76700

== ENCOUNTER 2023-01-16 08:57 | Outpatient (REF) | payer OTHER, SELFPAY ==
--- NOTE | ~2023-01-16 | FL_ITS ---
EXAMINATION: XR FLUOROSCOPY BARIUM SWALLOW WITH AIR CLINICAL INFORMATION: Dysphasia, GERD, epigastric type discomfort. Patient states food gets stuck in distal esophagus and must be cleared with water. COMPARISON: 01/08/2019 barium swallow. TECHNIQUE: Fluoroscopic air contrast upper GI examination was performed utilizing standard techniques with thin and thick barium and effervescent granules. Numerous spot images were obtained. FINDINGS: Lateral cine images of the oropharynx and hypopharynx demonstrate normal swallow mechanism with normal epiglottic inversion and soft palate elevation. No tracheal penetration, glottic or subglottic aspiration identified. No nasopharyngeal reflux present. Hypopharyngeal structures appear normal without evidence of mass or diverticulum. There was no significant cricopharyngeal achalasia. Dual and single contrast images of the esophagus demonstrate a somewhat patulous caliber throughout the esophagus course. Contour demonstrates a probable small traction diverticulum just below the aortic arch indentation. Normal mucosal pattern. No evidence of mass, or ulcerations identified. Esophageal peristalsis was quite disordered, with a suboptimally propulsive somewhat weakened primary peristaltic wave followed by extensive nonpropulsive tertiary contractions. There was likely some degree of distal esophageal spasm (seen on RF series a, image 50 of 75). The lower esophageal sphincter was consistently slow to allow passage of barium into the stomach, and had a small birds beak appearance consistently suggesting achalasia (refer to series 5, image 19 of 96). There is also a probable residua of a Schatzki's ring present (refer to series 8, image 69 of 75), which does not cause a functional obstruction at this time. Dual contrast and single contrast images of the stomach demonstrated normal contour without evidence of mass or ulceration. Mucosal fold pattern appears mildly sparse, either representing suboptimal contrast coating or possibly atrophic gastritis. Single and air-contrast images of the duodenal bulb demonstrate no abnormality. The duodenal sweep has a normal appearance, course, and mucosal fold appearance. The imaged proximal jejunum has a normal fold pattern and caliber. FLUOROSCOPY TIME: 4 minutes 29 seconds Number of Spot Images: 19 spot exposures, and 17 fluoroscopic image save cine runs. DOSE AREA PRODUCT: 2438 uGy-m2 (microgray-meter squared) FL/FL barium swallow IMPRESSION: 1. Somewhat patulous esophagus secondary to mild achalasia of the lower esophageal sphincter with residua of a Schatzki's ring. This consistently caused significant holdup of the barium column, but did eventually open to allow barium to pass. 2. Extensive esophageal dysmotility. Weakened primary peristalsis, and extensive nonpropulsive tertiary contractions. Question of episodic spasm of the distal aspect. 3. Small sliding hiatus hernia. Spontaneous gastroesophageal reflux noted to the level of the aortic arch. 4. Somewhat barren appearing mucosa within the fundus and body of the stomach, possibly artifactual due to suboptimal barium coating, although atrophic gastritis is also a consideration. 5. No evidence of oral pharyngeal or hypopharyngeal swallow dysfunction, or laryngeal penetration.
== END 2023-01-16 08:58 | disposition home or self-care (01) ==
LOC: HO.XRAY 08:57
PROVIDERS: PCP Registered Nurse; Visit Provider Nurse Practitioner
DX: R13.10 Dysphagia, unspecified (principal)
CPT/HCPCS: 74220

== ENCOUNTER → 2023-01-16 09:00 | Outpatient (BNV) | payer OTHER, SELFPAY | PROVIDERS: PCP Registered Nurse; Visit Provider Radiology Diagnostic Radiology | DX: R13.10 Dysphagia, unspecified (principal) | CPT/HCPCS: 74221 ==

== ENCOUNTER 2023-03-06 08:18 | Day surgery (SDC) | payer OTHER, SELFPAY ==
[2023-03-02 14:00] VITALS: BMI 26.2
--- NOTE | 2023-03-05 10:30 | P.CONAN_ITS ---
Documented by User: Iveth Arreaga NP 03/05/23 10:32 HPI - Anesthesia Eval Consult details Narrative: 63yo F for Colonoscopy s/p D&C hyst 08/2022 with GA-LMA 4 PMFSH Active Problems Active Problems: All Active Problems (Updated 11/28/22 @ 14:04 by MARITZA Mckeon) Rectal bleeding (Acute) RUQ abdominal pain (Acute) Dysplasia of cervix, low grade (PADMINI 1) (Acute) Osteoarthritis of right knee (Acute) Osteoarthritis of left knee (Acute) Weight loss (Acute) Myoma (Acute) Osteoarthritis of patellofemoral joint (Acute) Postmenopausal bleeding (Acute) Well woman exam (Acute) Migraines (Acute) Painful arc syndrome of right shoulder (Acute) Weight loss, non-intentional (Acute) Polyarthralgia (Acute) Constipation (Acute) Dysphagia (Acute) IBS (irritable bowel syndrome) (Acute) Neutropenia (Acute) Cervical high risk HPV (human papillomavirus) test positive (Acute) GERD (gastroesophageal reflux disease) (Acute) Karina's disease (Acute) Non-toxic multinodular goiter (Acute) Osteoarthritis of left hip (Acute) Chronic pain syndrome (Acute) Spondylosis, lumbar, with myelopathy (Acute) Sacroiliitis (Acute) Past Medical History Medical History Cervical high risk HPV (human papillomavirus) test positive Fibromyalgia Elevated cholesterol Karina's disease Non-toxic multinodular goiter Osteoarthritis of left hip Schatzki's ring Hiatal hernia Hx of migraines History of multinodular goiter IBS (irritable bowel syndrome) GERD (gastroesophageal reflux disease) Chronic pain syndrome Spondylosis, lumbar, with myelopathy Sacroiliitis Family History Family History Father Unknown family medical history Mother Arthritis Diverticulitis Gastritis Breast cancer Chronic asthma Adenomatous colon polyp HTN (hypertension) Maternal Grandmother Colon cancer Family history of problems with anesthesia: Yes (Slow awakening in daughter) Surgical History Surgical History History of bilateral tubal ligation Hx of dilation and curettage Hx of arthroscopy of right knee History of esophagogastroduodenoscopy (EGD) Hx of colonoscopy History of cholecystectomy History of Problems with Anesthesia: No Social History Social History Household Members: None Housing: House Are you a primary landcare facilitator to a significant other at home: Yes (mother) Do you presently have visiting nurse or other home services: No Alcohol intake: never Patient Tobacco Use Status: Never used Tobacco Have you been hit, kicked, punched, or otherwise hurt by someone within the past year? 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 Allergies Allergy/AdvReac Type Severity Reaction Status Date / Time No Known Allergies Allergy Verified 11/09/22 14:38 [No Known Allergies*] Home Medications Medication Instructions Recorded Confirmed Last Taken Type acetaminophen 650 mg 1 tab PO Q8H PRN Pain 04/12/20 03/02/23 Unknown History tablet,extended release (Mapap Arthritis Pain) diphenhydramine HCl 25 mg capsule 25 mg PO BEDTIME PRN Insomnia 11/03/20 1 05/02/22 Unknown History ibuprofen 800 mg tablet 800 mg PO Q8H PRN Pain 11/15/20 03/02/23 08/30/22 History capsaicin 0.025 % topical cream 0.025 appl topical BID 07/24/22 03/02/23 Unknown History diclofenac sodium 1 % topical gel 1 g topical BID 07/24/22 03/02/23 Unknown History lidocaine 5 % topical ointment 5 appl topical Q OTHER DAY 07/24/22 03/02/23 Unknown History amitriptyline 10 mg tablet 5 mg PO BEDTIME PRN Insomnia 08/28/22 03/02/23 Unknown History omega 6-aor-rro-fish oil 1,000 mg 2 cap PO DAILY 09/01/22 03/02/23 Unknown History (120 mg-180 mg) capsule (Fish Oil) duloxetine 40 mg capsule,delayed 40 mg PO DAILY 09/21/22 03/02/23 Unknown History release Centrum Silver Women 1 tab PO DAILY 11/28/22 03/02/23 Unknown History Exam Exam Date and Time: March 05, 2023 1030 Height,Weight and Vital Signs: Height 5 ft Weight 60.781 kg Pertinent Lab Results Pertinent Lab Results: Laboratory Tests 11/09/22 14:34 WBC 3.8 L Hgb 12.2 Hct 38.0 Plt Count 255 Sodium 138 Potassium 4.0 Chloride 107 Carbon Dioxide 26 BUN 20 H Creatinine 0.85 Assessment and Plan Assessment Anesthesia Assessment: Chart Reviewed Final Anesthetic Review Family History of Problems with Anesthesia: Yes (Slow awakening in daughter) History of Problems with Anesthesia: No Documented by User: Edna Matos MD 03/06/23 10:01 [facility] Active Problems Active Problems: All Active Problems (Updated 03/06/23 @ 09:39 by Edna Matos MD) Rectal bleeding (Acute) RUQ abdominal pain (Acute) Dysplasia of cervix, low grade (PADMINI 1) (Acute) Osteoarthritis of right knee (Acute) Osteoarthritis of left knee (Acute) Weight loss (Acute) Myoma (Acute) Osteoarthritis of patellofemoral joint (Acute) Postmenopausal bleeding (Acute) Well woman exam (Acute) Migraines (Acute) Painful arc syndrome of right shoulder (Acute) Weight loss, non-intentional (Acute) Polyarthralgia (Acute) Constipation (Acute) Dysphagia (Acute) IBS (irritable bowel syndrome) (Acute) Neutropenia (Acute) Cervical high risk HPV (human papillomavirus) test positive (Acute) GERD (gastroesophageal reflux disease) (Acute) Karina's disease (Acute) Non-toxic multinodular goiter (Acute) Osteoarthritis of left hip (Acute) Chronic pain syndrome (Acute) Spondylosis, lumbar, with myelopathy (Acute) Sacroiliitis (Acute) Past Medical History Medical History Cervical high risk HPV (human papillomavirus) test positive Fibromyalgia Elevated cholesterol Karina's disease Non-toxic multinodular goiter Osteoarthritis of left hip Schatzki's ring Hiatal hernia Hx of migraines History of multinodular goiter IBS (irritable bowel syndrome) GERD (gastroesophageal reflux disease) Chronic pain syndrome Spondylosis, lumbar, with myelopathy Sacroiliitis Family History Family History Father Unknown family medical history Mother Arthritis Diverticulitis Gastritis Breast cancer Chronic asthma Adenomatous colon polyp HTN (hypertension) Maternal Grandmother Colon cancer Surgical History Surgical History History of bilateral tubal ligation Hx of dilation and curettage Hx of arthroscopy of right knee History of esophagogastroduodenoscopy (EGD) Hx of colonoscopy History of cholecystectomy Social History Social History Household Members: None Housing: House Are you a primary landcare facilitator to a significant other at home: Yes (mother) Do you presently have visiting nurse or other home services: No Alcohol intake: never Patient Tobacco Use Status: Never used Tobacco Have you been hit, kicked, punched, or otherwise hurt by someone within the past year? 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 Allergies Allergy/AdvReac Type Severity Reaction Status Date / Time No Known Allergies Allergy Verified 11/09/22 14:38 [No Known Allergies*] Home Medications Medication Instructions Recorded Confirmed Last Taken Type acetaminophen 650 mg 1 tab PO Q8H PRN Pain 04/12/20 03/02/23 Unknown History tablet,extended release (Mapap Arthritis Pain) diphenhydramine HCl 25 mg capsule 25 mg PO BEDTIME PRN Insomnia 11/03/20 03/02/23 Unknown History ibuprofen 800 mg tablet 800 mg PO Q8H PRN Pain 11/15/20 03/02/23 08/30/22 History capsaicin 0.025 % topical cream 0.025 appl topical BID 07/24/22 03/02/23 Unknown History diclofenac sodium 1 % topical gel 1 g topical BID 07/24/22 03/02/23 Unknown History lidocaine 5 % topical ointment 5 appl topical Q OTHER DAY 07/24/22 03/02/23 Unknown History amitriptyline 10 mg tablet 5 mg PO BEDTIME PRN Insomnia 08/28/22 03/02/23 Unknown History omega 9-bfq-sqb-fish oil 1,000 mg 2 cap PO DAILY 09/01/22 03/02/23 Unknown History (120 mg-180 mg) capsule (Fish Oil) duloxetine 40 mg capsule,delayed 40 mg PO DAILY 09/21/22 03/02/23 Unknown History release Centrum Silver Women 1 tab PO DAILY 11/28/22 03/02/23 Unknown History Exam Height,Weight and Vital Signs: Height 5 ft Weight 60.781 kg Vital Signs Temp Pulse Resp BP Pulse Ox O2 Del Method 03/06/23 09:03 96.9 F 49 L 18 108/65 100 Room Air Airway Mallampati Class: II TM Dist: >3cm Neck ROM: Limited (Cervical disc problems. Limited extension) Denture: Lower Partial: Upper Loose/Missing/Broken Teeth: Yes (Many missing.Denies broken or loose teeth) Heart: RRR Lungs: CTAB Assessment and Plan Assessment Anesthesia Assessment: Anesthesia Plan Discussed Final Anesthetic Review NPO: Yes ASA Class: II Final Preanesthetic Review: No Changes in Pt Med Stat, Meds/Allgs Chart Reviewed, Consent Obtained/Reviewed and Anes Risks/Benef Reviewed Patient Risk: Low Procedure Risk: Low Assessment/Block/Sedation in SS: Assess/Block/Sedation-SS Anesthetic Plan Anesthetic Plan: MAC: Disposition: Standard PACU
[2023-03-06 09:03] VITALS: BP 108/65; PULSE 49; RESP 18; TEMP 36.1; O2SAT 100
[2023-03-06 09:36] VITALS: BMI 23.7
[2023-03-06] MEDS: Lactated Ringers 1,000 ML 100 ML IVCONT (09:44)
--- NOTE | 2023-03-06 09:49 | MHC.SHP ---
Pre-Procedural Eval Section A Date of Service: 03/06/23 Section B Chief Complaint: Hemorrhage of anus and rectum, Right upper quadran Relevant Family History (Specify if Yes): Yes Relevant Social History: None Present Medications: see Short Stay Collaborative assessment Medical History: Significant History (Cervical high risk HPV (human papillomavirus) test positive Fibromyalgia Elevated cholesterol Karina's disease Non-toxic multinodular goiter Osteoarthritis of left hip Schatzki's ring Hiatal hernia Hx of migraines History of multinodular goiter IBS (irritable bowel syndrome) GERD (gastroesophagea) History of Previous Operations: Relevant previous surgery/procedure and date(s) (History of bilateral tubal ligation Hx of dilation and curettage Hx of arthroscopy of right knee History of esophagogastroduodenoscopy (EGD) Hx of colonoscopy History of cholecystectomy) Allergies: Allergies Allergy/AdvReac Type Severity Reaction Status Date / Time No Known Allergies Allergy Verified 11/09/22 14:38 [No Known Allergies*] Review of Systems Sugical H&P ROS: Negative: Constitution, Cardiovascular, Respiratory, Neurological, Psychiatric, Hem-Onc, Allergic/Immunologic, Gastrointestinal, Genitourinary, Musculoskeletal, Integumentary, Endocrine and Eyes/Ears/Nose/Throat Exam Surgical H&P Exam: Normal: HEENT, Normal: Heart, Normal: Lungs, Normal: Extremities, Normal: Abdomen, Normal: Skin and Normal: Neurological Plan I have reviewed the history and physical and performed a pertinent physical examination on my patient. No changes have occurred unless specified. Time Spent With Patient Time: Total time managing care of this patient today ____ minutes.
--- NOTE | 2023-03-06 09:51 | P.OP_ITS ---
Operative Note Operative Note Date of Service: 03/06/23 Narrative: Operative Information Procedure Description: Colonoscopy Indication: rectal bleeding Anesthesia: MAC COLONOSCOPY Instrument: Olympus variable stiffness pediatric scope 190L Colonoscopy Monitoring: Vital signs and clinical assessment, continuous EKG monitoring, Pulse oximetry, Carbon Dioxide monitoring and blood pressure monitoring were done throughout the procedure. Colon withdrawal time was 8 minutes. Procedure: The patient was placed in the left lateral decubitis position and pre-procedure medications were administered. After a digital rectal examination of the ano-rectum, the video colonoscope was inserted into the rectum and advanced through the colon to the cecum/TI. The colonoscope was slowly withdrawn in a retrograde panoramic fashion and the colon mucosa was carefully examined including a retroflexed view of the rectum. Findings and interventions are described below. Procedure Difficulty: easy Findings: Terminal Ileum-normal Cecum:normal Ascending Colon: scattered diverticula Transverse Colon -normal Descending Colon:normal Sigmoid Colon: moderate severe diverticulosis, 7-8 mm sessile polyp removed with cold snare Rectum: Retroflexion with small internal hemorrhoids, grade I Anorectum - normal Colon preparation: [place] Bowel Preparation Scale Right colon; 2 Transverse colon: 3 Left colon; 3 (0 = Unprepared colon segment with mucosa not seen due to solid stool that c annot be cleared. 1 = Portion of mucosa of the colon segment seen, but other areas of the colon segment not well seen due to staining, residual stool and/or opaque liquid. 2 = Minor amount of residual staining, small fragments of stool and/or opaque liquid, but mucosa of colon segment seen well. 3 = Entire mucosa of colon segment seen well with no residual staining, small fragments of stool or opaque liquid) Impression and Post Procedure Diagnosis: polyp internal hemorrhoids diverticular disease Plan: High fiber diet leaflet Avoid straining at stool, epsom salts and sitz bath, anusol supps or cream Repeat Colonoscopy in 5 years if adenoma, 10 ys if hyperplastic or earlier if clinically indicated refer for esophageal manometry for her dysphagia and concern for achalasia, might need repeat EGD and attempt at dilation. Above findings were reviewed with the patient and relevant handouts were provided if indicated.
[2023-03-06 10:34] VITALS: BP 99/57; PULSE 51; RESP 16; TEMP 36.3; O2SAT 100
[2023-03-06 10:49] VITALS: BP 102/66; PULSE 50; RESP 16; TEMP 36.3; O2SAT 99
== END 2023-03-06 11:08 | disposition home or self-care (01) ==
PROVIDERS: PCP Registered Nurse; Visit Provider Internal Medicine Gastroenterology
PROC: 0DJD8ZZ Inspection of Lower Intestinal Tract, Via Natural or Artificial Opening Endoscopic (ICD-10-PCS; CPT 45378; principal; 2023-03-06 10:20)
DX: Z12.11 Encounter for screening for malignant neoplasm of colon (principal); K63.5 Polyp of colon; K57.30 Diverticulosis of large intestine without perforation or abscess without bleeding; K64.0 First degree hemorrhoids; K21.9 Gastro-esophageal reflux disease without esophagitis; K22.2 Esophageal obstruction; R63.4 Abnormal weight loss; R10.11 Right upper quadrant pain; K62.5 Hemorrhage of anus and rectum; R13.10 Dysphagia, unspecified; G89.4 Chronic pain syndrome; E78.5 Hyperlipidemia, unspecified; Z98.51 Tubal ligation status; Z90.49 Acquired absence of other specified parts of digestive tract; Z87.891 Personal history of nicotine dependence; Z79.899 Other long term (current) drug therapy
CPT/HCPCS: 45385; 88305

== ENCOUNTER → 2023-03-06 08:18 | Outpatient (BNV) | payer OTHER, SELFPAY | PROVIDERS: PCP Registered Nurse; Visit Provider Internal Medicine Gastroenterology | DX: K62.5 Hemorrhage of anus and rectum (principal); K57.90 Diverticulosis of intestine, part unspecified, without perforation or abscess without bleeding; K63.5 Polyp of colon; K64.0 First degree hemorrhoids | CPT/HCPCS: 45385 ==

== ENCOUNTER 2023-03-16 14:59 | Outpatient (REF) | payer OTHER, SELFPAY ==
--- NOTE | ~2023-03-16 | MM_ITS ---
EXAMINATION: MM SCREENING DIGITAL BREAST TOMOSYNTHESIS, BILATERAL CLINICAL INFORMATION: Screening. Asymptomatic. COMPARISON: Mammography: This study is compared with prior exams dating back to 2019. TECHNIQUE: Digital breast tomosynthesis is performed in both the craniocaudal and mediolateral oblique views along with computer-aided detection (CAD). Synthesized 2D images are generated from the tomosynthesis. FINDINGS: The breasts are heterogeneously dense, which may obscure small masses (ACR BI-RADS breast composition Category c). There are no significant masses, abnormal calcifications, or other abnormalities. There is a tissue marker present in the right breast from prior benign percutaneous biopsy. There are unchanged calcifications in the superior aspect of the left breast. These are benign. MM/MM tomosynthesis screening BI IMPRESSION: No mammographic evidence of malignancy. ASSESSMENT: BI-RADS BI-RADS 2 - Benign Findings RECOMMENDATION: Routine annual mammography screening. 1 year F/U This examination should not preclude the clinical evaluation of a suspicious palpable abnormality. This patient's information was entered into a reminder system with a target due date for their next mammogram.
== END 2023-03-16 15:00 | disposition home or self-care (01) ==
LOC: HO.MAMMO 14:59
PROVIDERS: PCP Registered Nurse; Visit Provider Registered Nurse
DX: Z12.31 Encounter for screening mammogram for malignant neoplasm of breast (principal)
CPT/HCPCS: 77063; 77067

== ENCOUNTER → 2023-03-16 15:30 | Outpatient (BNV) | payer OTHER, SELFPAY | PROVIDERS: PCP Registered Nurse; Visit Provider Radiology Diagnostic Radiology | DX: Z12.31 Encounter for screening mammogram for malignant neoplasm of breast (principal) | CPT/HCPCS: 77063; 77067 ==

== ENCOUNTER 2023-03-20 13:52 | Outpatient (AMB) | payer OTHER, SELFPAY ==
--- NOTE | 2023-03-20 13:54 | MHC.OFFVIS ---
Intake Vital Signs 03/20/23 14:01 Height 5 ft 3 in Weight 136 lb 3.931 oz BMI 24.1 BP 109/62 Blood Pressure Location Rt brachial Position Sitting Pulse 56 Intake Visit Reasons: S/p aarti Renteria Intake Note: Patient returns to in office visit today in colonoscopy follow up. CC: Patient underwent colonoscopy with Dr. Renteria on 03/06/23. Patient c/o constipation epigastric pain, and dysphagia. Allergies No Known Allergies [No Known Allergies*] Allergy (Verified 03/20/23 14:03) HPI S/p aarti Renteria HPI Details Assessment & Plan (1) RUQ abdominal pain: Code(s): R10.11 - Right upper quadrant pain (2) Dysphagia: Code(s): R13.10 - Dysphagia, unspecified Plan: She has continued dysphagia with the feeling of food getting stuck at the GE jxn, she had a negative EGD in 2019 and she did not respond to dilation - but had a barium swallow that showed possible pseudo acalasia. Will repeat barium swallow and consider if esoph manometry is needed. She also c/o waking up with mucus in her throat and waking up choking om my own saliva. She is continued on her omeprazole 40 mg once a day faithfully. She has a new c/o RUQ sharp pain that is not directly r/t eating or moving her bowels, that is very intense and will at times last a 1/2 a day and she has to sit with posture towards the left to alleviate it. Pain does not radiate or move and she cannot identify any particular exacerbating or relieving factors. The only new medication is Cymbalta which her primary care provider put her on for her new diagnosis fibromyalgia syndrome. She is having trouble with CIC, so this could be bowel spasm, senna not working well for her. Well progress to dulcolax OTC and further if needed. She has had 2 episodes of RB on TT. Since her mother had polyps and her grandmother colon cancer she is due for colonoscopy so we will get this ordered anyway. Will start bentyl for pain and this may benefit the esophagus. Will get US of for RUQ pain. 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 There are no prior problems with anesthesia or sedation. She denies any cardiac or respiratory problems. No ID problems. Her grandmother had CRC, mother had polyps. ROV 3 weeks. ( I tell her that the gastric emptying study was normal so this leaves us with a mystery.? So far, to date, she has had a benign EGD except for esophageal spasms, a negative gastric emptying study, a relatively benign x-ray in 2019 except for some possible sclerotic bone lesions (this was ordered by Dr. Qureshi I do not know that was followed up on), NO H PYLORI BY BIOPSY,?in fact no pathology on gastric biopsy.) (3) GERD (gastroesophageal reflux disease): Code(s): K21.9 - Gastro-esophageal reflux disease without esophagitis (4) IBS (irritable bowel syndrome): Code(s): K58.9 - Irritable bowel syndrome without diarrhea (5) Weight loss, non-intentional: Comment: wt down 14 lbs in past 2-3 months Code(s): R63.4 - Abnormal weight loss (6) Rectal bleeding: Code(s): K62.5 - Hemorrhage of anus and rectum Orders: Orders FL barium swallow Today R13.10 - Dysphagia , unspecified US abdomen complet e Today R10.11 - Right upp er quadrant pain Colonoscopy - GI U se Only Today K62.5 - Hemorrhage of anus and rectu m Medications: New bisacodyl (Dulcola x (bisacodyl)) 10 mg (2 x 5 mg) P O BEDTIME 30 days 60 tabs 0RF peg 3350-electroly jesse 236-22.74-6.74 -5.86 gram (Golyt isaac) until feca l effluent is inessa r; do not exceed a total volume of 2 ,000 mL 240 mL PO Q10M 1 day 4,000 mL 0RF Z12.11 - Encounter for screening for malignant neoplas m of colon dicyclomine 10 mg PO QID PRN 120 caps 3RF abdom inal pain R10.11 - Right upp er quadrant pain COLONOSCOPY 03/06/23 Findings: Terminal Ileum-normal Cecum:normal Ascending Colon: scattered diverticula Transverse Colon -normal Descending Colon:normal Sigmoid Colon: moderate severe diverticulosis, 7-8 mm sessile polyp removed with cold snare Rectum: Retroflexion with small internal hemorrhoids, grade I Anorectum - normal Impression and Post Procedure Diagnosis: polyp internal hemorrhoids diverticular disease Plan: High fiber diet leaflet Avoid straining at stool, epsom salts and sitz bath, anusol supps or cream Repeat Colonoscopy in 5 years if adenoma, 10 ys if hyperplastic or earlier if clinically indicated refer for esophageal manometry for her dysphagia and concern for achalasia, might need repeat EGD and attempt at dilation. BIOPSY Received: 03/06/23 Diagnosis Colon, sigmoid, polyp: Hyperplastic polyp ULTRASOUND OF THE ABDOMEN 12/15/22 FINDINGS: PANCREAS: Normal. ABDOMINAL AORTA: The proximal, mid, and distal segments are normal in caliber. INFERIOR VENA CAVA: Visualized portions are normal. LIVER: The liver is normal in size. The liver contour is normal. Increased echogenicity. No focal hepatic lesion. There is no intrahepatic biliary duct dilatation seen. GALLBLADDER: Surgically absent. COMMON BILE DUCT: Dilated measuring 0.9 cm in diameter, not significantly changed, most likely related with chronic post cholecystectomy state. RIGHT KIDNEY: No hydronephrosis. No renal calculi or focal parenchymal lesions. The kidney measures 9.9 cm in maximum dimension. Mild pelvic prominence. No caliectasis. LEFT KIDNEY: Normal. No hydronephrosis. No renal calculi or focal parenchymal lesions. The kidney measures 10.6 cm in maximum dimension. SPLEEN: Normal. The spleen measures 8.9 cm in maximum dimension. FREE FLUID: None. US/US abdomen complete IMPRESSION: 1. Increased echogenicity of the liver is nonspecific, but could be seen in the setting of hepatic steatosis. 2. Status post cholecystectomy with stable dilatation of the common bile duct. 3. Mild right-sided pelviectasis. BARIUM SWALLOW 01/16/23 FINDINGS: Lateral cine images of the oropharynx and hypopharynx demonstrate normal swallow mechanism with normal epiglottic inversion and soft palate elevation. No tracheal penetration, glottic or subglottic aspiration identified. No nasopharyngeal reflux present. Hypopharyngeal structures appear normal without evidence of mass or diverticulum. There was no significant cricopharyngeal achalasia. Dual and single contrast images of the esophagus demonstrate a somewhat patulous caliber throughout the esophagus course. Contour demonstrates a probable small traction diverticulum just below the aortic arch indentation. Normal mucosal pattern. No evidence of mass, or ulcerations identified. Esophageal peristalsis was quite disordered, with a suboptimally propulsive somewhat weakened primary peristaltic wave followed by extensive nonpropulsive tertiary contractions. There was likely some degree of distal esophageal spasm (seen on RF series a, image 50 of 75). The lower esophageal sphincter was consistently slow to allow passage of barium into the stomach, and had a small birds beak appearance consistently suggesting achalasia (refer to series 5, image 19 of 96). There is also a probable residua of a Schatzki's ring present (refer to series 8, image 69 of 75), which does not cause a functional obstruction at this time. Dual contrast and single contrast images of the stomach demonstrated normal contour without evidence of mass or ulceration. Mucosal fold pattern appears mildly sparse, either representing suboptimal contrast coating or possibly atrophic gastritis. Single and air-contrast images of the duodenal bulb demonstrate no abnormality. The duodenal sweep has a normal appearance, course, and mucosal fold appearance. The imaged proximal jejunum has a normal fold pattern and caliber. FLUOROSCOPY TIME: 4 minutes 29 seconds Number of Spot Images: 19 spot exposures, and 17 fluoroscopic image save cine runs. DOSE AREA PRODUCT: 2438 uGy-m2 (microgray-meter squared) FL/FL barium swallow IMPRESSION: 1. Somewhat patulous esophagus secondary to mild achalasia of the lower esophageal sphincter with residua of a Schatzki's ring. This consistently caused significant holdup of the barium column, but did eventually open to allow barium to pass. 2. Extensive esophageal dysmotility. Weakened primary peristalsis, and extensive nonpropulsive tertiary contractions. Question of episodic spasm of the distal aspect. 3. Small sliding hiatus hernia. Spontaneous gastroesophageal reflux noted to the level of the aortic arch. 4. Somewhat barren appearing mucosa within the fundus and body of the stomach, possibly artifactual due to suboptimal barium coating, although atrophic gastritis is also a consideration. 5. No evidence of oral pharyngeal or hypopharyngeal swallow dysfunction, or laryngeal penetration. TODAY'S VISIT She is agreeable to a 5 year follow up r/t FHX crc. Dysphagia continues, Dr. Renteria referred her to [facility] for ESOPHAGEAL manometry, however her insurance is not covered at this institution. Her primary care referred her to [facility] which falls under her coverage in is probably affiliated with [facility]. Since they have access to esophageal manometry will also allow them to do the upper endoscopy. She continues on her omeprazole for GERD. She has not been using her bisacodyl for constipation because she has been using increased fiber on, dietary interventions and chamomile tea with good results. She did not have any improvement with swallowing or bowel irritability with dicyclomine so we will stop it. Return office visit in 6 months which she can contact me if any problems arise coordinating her swallowing issue with [facility]. [facility] Medical History Cervical high risk HPV (human papillomavirus) test positive Fibromyalgia Elevated cholesterol Karina's disease Non-toxic multinodular goiter Osteoarthritis of left hip Schatzki's ring Hiatal hernia Hx of migraines History of multinodular goiter IBS (irritable bowel syndrome) GERD (gastroesophageal reflux disease) Chronic pain syndrome Spondylosis, lumbar, with myelopathy Sacroiliitis Surgical History (Updated 03/20/23 @ 14:06 by KANIKA Fernando) History of bilateral tubal ligation Hx of dilation and curettage Hx of arthroscopy of right knee History of esophagogastroduodenoscopy (EGD) Hx of colonoscopy History of cholecystectomy Family History Father Unknown family medical history Mother Arthritis Diverticulitis Gastritis Breast cancer Chronic asthma Adenomatous colon polyp HTN (hypertension) Maternal Grandmother Colon cancer Household Members: None Housing: House Are you a primary manager medicare marketing to a significant other at home: Yes (mother) Do you presently have visiting nurse or other home services: No Alcohol intake: never Patient Tobacco Use Status: Never used Tobacco service: No Current occupational status: employed 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 Female 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 History Menstrual Age of Menarche: 13 Review of Systems Const Denies fatigue, Denies fever(s), Denies night sweats, Denies poor appetite and Denies weight loss Eyes Details: glasses Reports requires corrective lenses ENT Reports Normal hearing present, Denies dental pain, Denies dysphagia, Denies hearing loss, Denies mouth pain, Denies odynophagia, Denies throat swelling, Denies tongue swelling and Reports other (Dentition adequate) GI Denies abdominal pain, Denies melena, Denies bloating, Denies hematochezia, Denies constipation, Denies GI cramping, Denies dysphagia, Denies excessive flatus, Denies early satiety, Denies heartburn, Denies diarrhea, Denies nausea, Denies odynophagia, Denies vomiting and Denies hematemesis Skin/Breast Denies pruritus, Denies lesions, Denies rash and Denies jaundice Neuro Reports Normal hearing present and Denies Abnormal speech present Endo Denies fatigue Aller/Immun Denies throat swelling and Denies tongue swelling Physical Exam Vital Signs: Last Vital Signs Pulse 56 03/20/23 14:01 BP 109/62 03/20/23 14:01 BMI result Body Mass Index 24.1 Const General: cooperative, no acute distress, well developed and well groomed Nutritional Appearance: well nourished, obese and overweight Orientation/consciousness: oriented to person, oriented to place and oriented to time Limitations: No language barrier, ambulation with cane, ambulation with walker and wheelchair HEENT Head: Yes normocephalic and Yes atraumatic Eyes General: appearance normal, both eyes and all related structures Pupils: Equal, round and reactive pupils present Neck Neck: Yes normal visual inspection and Yes no lymphadenopathy Thyroid: Thyroid normal Resp Effort & Inspection: normal respiratory effort and able to speak in complete sentences Auscultation: clear to auscultation bilaterally Cardio Rate: regular rate Rhythm: regular rhythm Heart sounds: Normal, physiologic split S2 sound present Peripheral pulses: radial pulses present and posterior tibial pulses present GI Inspection: No distended and No Abdominal panniculus present Palpation (GI): Soft to palpation, nontender, no guarding, not rigid, No hepatosplenomegaly present and Hepatosplenomegaly present Percussion: Yes normal to percussion Auscultation: normal bowel sounds Rectal Exam - Female: deferred Skin General skin exam: no rashes or lesions noted, turgor normal, skin not dry, no jaundice, No spider nevi and no striae Rashes: no rashes Nails: normal Neuro General: oriented to person, oriented to place and oriented to time Cranial nerves: Yes Equal, round and reactive pupils present and Yes Normal hearing present Speech: No Abnormal speech present Extrem General: Yes normal to inspection, No clubbing, No cyanosis and No edema Psych Thought process: Normal thought process present and not confabulating Thought content: Normal thought content present Insight: Good insight present (Psych) Judgement: Good judgement present (Psych) Results Reviewed Results Reviewed: COLONOSCOPY 03/06/23 Findings: Terminal Ileum-normal Cecum:normal Ascending Colon: scattered diverticula Transverse Colon -normal Descending Colon:normal Sigmoid Colon: moderate severe diverticulosis, 7-8 mm sessile polyp removed with cold snare Rectum: Retroflexion with small internal hemorrhoids, grade I Anorectum - normal Impression and Post Procedure Diagnosis: polyp internal hemorrhoids diverticular disease Plan: High fiber diet leaflet Avoid straining at stool, epsom salts and sitz bath, anusol supps or cream Repeat Colonoscopy in 5 years if adenoma, 10 ys if hyperplastic or earlier if clinically indicated refer for esophageal manometry for her dysphagia and concern for achalasia, might need repeat EGD and attempt at dilation. BIOPSY Received: 03/06/23 Diagnosis Colon, sigmoid, polyp: Hyperplastic polyp ULTRASOUND OF THE ABDOMEN 12/15/22 FINDINGS: PANCREAS: Normal. ABDOMINAL AORTA: The proximal, mid, and distal segments are normal in caliber. INFERIOR VENA CAVA: Visualized portions are normal. LIVER: The liver is normal in size. The liver contour is normal. Increased echogenicity. No focal hepatic lesion. There is no intrahepatic biliary duct dilatation seen. GALLBLADDER: Surgically absent. COMMON BILE DUCT: Dilated measuring 0.9 cm in diameter, not significantly changed, most likely related with chronic post cholecystectomy state. RIGHT KIDNEY: No hydronephrosis. No renal calculi or focal parenchymal lesions. The kidney measures 9.9 cm in maximum dimension. Mild pelvic prominence. No caliectasis. LEFT KIDNEY: Normal. No hydronephrosis. No renal calculi or focal parenchymal lesions. The kidney measures 10.6 cm in maximum dimension. SPLEEN: Normal. The spleen measures 8.9 cm in maximum dimension. FREE FLUID: None. US/US abdomen complete IMPRESSION: 1. Increased echogenicity of the liver is nonspecific, but could be seen in the setting of hepatic steatosis. 2. Status post cholecystectomy with stable dilatation of the common bile duct. 3. Mild right-sided pelviectasis. BARIUM SWALLOW 01/16/23 FINDINGS: Lateral cine images of the oropharynx and hypopharynx demonstrate normal swallow mechanism with normal epiglottic inversion and soft palate elevation. No tracheal penetration, glottic or subglottic aspiration identified. No nasopharyngeal reflux present. Hypopharyngeal structures appear normal without evidence of mass or diverticulum. There was no significant cricopharyngeal achalasia. Dual and single contrast images of the esophagus demonstrate a somewhat patulous caliber throughout the esophagus course. Contour demonstrates a probable small traction diverticulum just below the aortic arch indentation. Normal mucosal pattern. No evidence of mass, or ulcerations identified. Esophageal peristalsis was quite disordered, with a suboptimally propulsive somewhat weakened primary peristaltic wave followed by extensive nonpropulsive tertiary contractions. There was likely some degree of distal esophageal spasm (seen on RF series a, image 50 of 75). The lower esophageal sphincter was consistently slow to allow passage of barium into the stomach, and had a small birds beak appearance consistently suggesting achalasia (refer to series 5, image 19 of 96). There is also a probable residua of a Schatzki's ring present (refer to series 8, image 69 of 75), which does not cause a functional obstruction at this time. Dual contrast and single contrast images of the stomach demonstrated normal contour without evidence of mass or ulceration. Mucosal fold pattern appears mildly sparse, either representing suboptimal contrast coating or possibly atrophic gastritis. Single and air-contrast images of the duodenal bulb demonstrate no abnormality. The duodenal sweep has a normal appearance, course, and mucosal fold appearance. The imaged proximal jejunum has a normal fold pattern and caliber. FLUOROSCOPY TIME: 4 minutes 29 seconds Number of Spot Images: 19 spot exposures, and 17 fluoroscopic image save cine runs. DOSE AREA PRODUCT: 2438 uGy-m2 (microgray-meter squared) FL/FL barium swallow IMPRESSION: 1. Somewhat patulous esophagus secondary to mild achalasia of the lower esophageal sphincter with residua of a Schatzki's ring. This consistently caused significant holdup of the barium column, but did eventually open to allow barium to pass. 2. Extensive esophageal dysmotility. Weakened primary peristalsis, and extensive nonpropulsive tertiary contractions. Question of episodic spasm of the distal aspect. 3. Small sliding hiatus hernia. Spontaneous gastroesophageal reflux noted to the level of the aortic arch. 4. Somewhat barren appearing mucosa within the fundus and body of the stomach, possibly artifactual due to suboptimal barium coating, although atrophic gastritis is also a consideration. 5. No evidence of oral pharyngeal or hypopharyngeal swallow dysfunction, or laryngeal penetration Assessment & Plan Assessment & Plan (1) RUQ abdominal pain: Code(s): R10.11 - Right upper quadrant pain (2) Weight loss: Code(s): R63.4 - Abnormal weight loss (3) Constipation: Code(s): K59.00 - Constipation, unspecified (4) Dysphagia: Code(s): R13.10 - Dysphagia, unspecified (5) GERD (gastroesophageal reflux disease): Code(s): K21.9 - Gastro-esophageal reflux disease without esophagitis (6) Achalasia: Code(s): K22.0 - Achalasia of cardia Plan She is agreeable to a 5 year follow up r/t X crc. Dysphagia continues, Dr. Renteria referred her to [facility] for ESOPHAGEAL manometry, however her insurance is not covered at this institution. Her primary care referred her to [facility] which falls under her coverage in is probably affiliated with [facility]. Since they have access to esophageal manometry will also allow them to do the upper endoscopy. She continues on her omeprazole for GERD. She has not been using her bisacodyl for constipation because she has been using increased fiber on, dietary interventions and chamomile tea with good results. She did not have any improvement with swallowing or bowel irritability with dicyclomine so we will stop it. Return office visit in 6 months which she can contact me if any problems arise coordinating her swallowing issue with [facility]. Orders: Referrals Gastroenterology Referral K22.0 - Achalasia of cardia Coding Level of Care Code Est Pt Level 3 (93329) Diagnoses RUQ abdominal pain R10.11 Weight loss R63.4 Constipation K59.00 Dysphagia R13.10 GERD (gastroesophageal reflux disease) K21.9 Achalasia K22.0
[2023-03-20 14:01] VITALS: BP 109/62; PULSE 56; BMI 24.1
== END 2023-03-20 15:53 | disposition home or self-care (01) ==
PROVIDERS: PCP Registered Nurse; Visit Provider Nurse Practitioner
DX: R10.11 Right upper quadrant pain (principal); R63.4 Abnormal weight loss; K59.00 Constipation, unspecified; R13.10 Dysphagia, unspecified; K21.9 Gastro-esophageal reflux disease without esophagitis; K22.0 Achalasia of cardia
CPT/HCPCS: 99213

== ENCOUNTER → 2023-03-20 13:52 | Outpatient (BNVA) | payer OTHER, SELFPAY | PROVIDERS: PCP Registered Nurse; Visit Provider Nurse Practitioner | DX: R10.11 Right upper quadrant pain (principal); R13.10 Dysphagia, unspecified; K59.00 Constipation, unspecified; R63.4 Abnormal weight loss | CPT/HCPCS: 99212 ==

== ENCOUNTER 2023-04-03 09:41 | Emergency (ER) | payer OTHER, SELFPAY ==
--- NOTE | 2023-04-03 09:47 | ECG_ITS ---
Test Reason : CHEST PAIN Blood Pressure : / mmHG Vent. Rate : 054 BPM Atrial Rate : 054 BPM P-R Int : 176 ms QRS Dur : 078 ms QT Int : 420 ms P-R-T Axes : 068 028 038 degrees QTc Int : 398 ms Sinus bradycardia Otherwise normal ECG When compared with ECG of 08-SEP-2019 18:36, No significant change was found Referred By: Generic ED Physician Electronically Signed By:OMI CALLE
[2023-04-03 09:52] VITALS: BP 119/70; PULSE 60; O2SAT 99
[2023-04-03 10:25] VITALS: BP 118/66; PULSE 55; RESP 16; TEMP 36.6; O2SAT 100; BMI 23.7
--- NOTE | 2023-04-03 11:27 | ED_ITS ---
HPI - Chest Pain General Chief Complaint: Chest Pain Stated Complaint: CP X30 MIN,SOB PER EMS Related Data Home Medications Medication Instructions Recorded Confirmed acetaminophen 650 mg 1 tab PO Q8H PRN Pain 04/12/20 03/02/23 tablet,extended release ([facility] Arthritis Pain) diphenhydramine HCl 25 mg capsule 25 mg PO BEDTIME PRN Insomnia 11/03/20 03/02/23 ibuprofen 800 mg tablet 800 mg PO Q8H PRN Pain 11/15/20 03/02/23 capsaicin 0.025 % topical cream 0.025 appl topical BID 07/24/22 03/02/23 diclofenac sodium 1 % topical gel 1 g topical BID 07/24/22 03/02/23 lidocaine 5 % topical ointment 5 appl topical Q OTHER DAY 07/24/22 03/02/23 amitriptyline 10 mg tablet 5 mg PO BEDTIME PRN Insomnia 08/28/22 03/02/23 omega 1-xxs-cax-fish oil 1,000 mg 2 cap PO DAILY 09/01/22 03/02/23 (120 mg-180 mg) capsule (Fish Oil) duloxetine 40 mg capsule,delayed 40 mg PO DAILY 09/21/22 03/02/23 release Centrum Silver Women 1 tab PO DAILY 11/28/22 03/02/23 Previous Rx's Medication Instructions Recorded topiramate 50 mg tablet 50 mg PO DAILY #30 tabs 02/24/22 omeprazole 40 mg capsule,delayed 40 mg PO DAILY #90 caps 11/15/22 release bisacodyl 5 mg tablet,delayed 10 mg (2 x 5 mg) PO BEDTIME 30 11/28/22 release (Dulcolax (bisacodyl)) days #60 tabs dicyclomine 10 mg capsule 10 mg PO QID PRN abdominal pain 11/28/22 #120 caps Allergies Allergy/AdvReac Type Severity Reaction Status Date / Time No Known Allergies Allergy Verified 03/20/23 14:03 [No Known Allergies*] [facility] Past Medical History Medical History (Updated 04/06/23 @ 01:56 by Elizabeth Shepherd NP) Cervical high risk HPV (human papillomavirus) test positive Fibromyalgia Elevated cholesterol Karina's disease Non-toxic multinodular goiter Osteoarthritis of left hip Schatzki's ring Hiatal hernia Hx of migraines History of multinodular goiter IBS (irritable bowel syndrome) GERD (gastroesophageal reflux disease) Chronic pain syndrome Spondylosis, lumbar, with myelopathy Sacroiliitis Surgical History (Updated 03/20/23 @ 14:06 by Brett Burns [facility]) History of bilateral tubal ligation Hx of dilation and curettage Hx of arthroscopy of right knee History of esophagogastroduodenoscopy (EGD) Hx of colonoscopy History of cholecystectomy Family History Family History Father Unknown family medical history Mother Arthritis Diverticulitis Gastritis Breast cancer Chronic asthma Adenomatous colon polyp HTN (hypertension) Maternal Grandmother Colon cancer Social History Social History Household Members: None Housing: House Are you a primary child 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 care 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 to a significant other at home: Yes (mother) Do you presently have visiting nurse or other home services: No Alcohol intake: never Patient Tobacco Use Status: Never used Tobacco Advance Directives: No service: No Current occupational status: employed 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
== END 2023-04-03 12:11 | disposition left against medical advice (07) ==
PROVIDERS: Emergency Provider Emergency Medicine
DX: R07.89 Other chest pain (principal); Z79.899 Other long term (current) drug therapy
CPT/HCPCS: 93005; 99283

== ENCOUNTER → 2023-04-03 09:47 | Outpatient (BNV) | payer OTHER, SELFPAY | PROVIDERS: Emergency Provider Emergency Medicine; Visit Provider Internal Medicine | DX: R00.1 Bradycardia, unspecified (principal) | CPT/HCPCS: 93010 ==

== ENCOUNTER 2023-05-16 14:59 | Outpatient (REF) | payer OTHER, SELFPAY ==
[2023-05-16 16:33] LABS: MANUAL DIFF FLAG NO
[2023-05-16 16:44] LABS: Basophils Absolute Auto 0.1 X10*3/uL (0.0-0.2); Basophils Percent Auto 1.3 % (0-2); Eosinophils Absolute Auto 0.2 X10*3/uL (0.0-0.4); Eosinophils Percent Auto 6.2 % (0-4); Hemoglobin 11.9 g/dl (12.0-16.0); Imm Gran Abs Auto 0.01 X10*3/uL (0.00-0.03); Imm Gran Pct Auto 0.3 % (0.0-0.4); Lymphocytes Absolute Auto 1.8 X10*3/uL (1.2-4.9); Mean Corpuscular HGB Conc 32.2 g/dl (31.0-35.0); Mean Corpuscular Hemoglobin 29.5 pg (27.0-33.0); Mean Corpuscular Volume 91.6 fL (80.0-98.0); Monocytes Absolute Auto 0.3 X10*3/uL (0.1-1.2); Monocytes Percent Auto 6.7 % (2-11); Neutrophils Absolute Auto 1.4 x10*3/uL (2.0-8.3); Neutrophils Percent Auto 37.5 % (45-73); Platelet Count 268 X10*3/uL (160-400); Red Blood Count 4.04 X10*6/uL (4.20-5.50); Red Cell Distribution Width 12.2 % (11.0-16.0); White Blood Count 3.7 X10*3/uL (4.8-10.8)
[2023-05-16 17:14] LABS: Alanine Aminotransferase 19 U/L (0-31); Albumin Level 3.9 g/dL (3.5-5.0); Alkaline Phosphatase 70 U/L (39-117); Anion Gap 11 (12-20); Aspartate Amino Transferase 19 U/L (5-31); Bilirubin Total 0.3 mg/dL (0.0-1.0); Blood Urea Nitrogen 19 mg/dL (9-16); C Reactive Protein < 0.04 mg/dL (< or = 0.50); Calcium 9.4 mg/dL (8.4-10.2); Carbon Dioxide 26 mmol/L (22-29); Chloride 107 mmol/L (96-108); Estimated Glomerular Filt Rate > 60; Glucose Random 83 mg/dL (60-115); Lipase 20 U/L (8-78); Potassium 3.6 mmol/L (3.3-5.1); Sodium 140 mmol/L (135-145); Total Protein 6.9 g/dL (6.5-8.0)
== END 2023-05-16 15:00 | disposition home or self-care (01) ==
LOC: HO.HHCL 14:59
PROVIDERS: Visit Provider Nurse Practitioner Family
DX: R13.14 Dysphagia, pharyngoesophageal phase (principal); R10.13 Epigastric pain
CPT/HCPCS: 36415; 80053; 83690; 85025; 86140

== ENCOUNTER 2023-06-14 07:16 | Outpatient (REF) | payer OTHER, SELFPAY ==
--- NOTE | ~2023-06-14 | MR_ITS ---
MR CERVICAL SPINE WITHOUT CONTRAST CLINICAL INFORMATION: Chronic neck pain with worsening radicular symptoms. COMPARISON: Cervical spine MRI 02/18/2016. TECHNIQUE: MRI of the cervical spine was obtained using routine sequences without contrast. FINDINGS: Straightening of the cervical lordosis. The vertebral body heights are maintained. There is moderate to severe disc volume loss at C4-C5 and C5-C6, progressed. Moderate disc volume loss at C3-C4 again noted. There are Modic type I endplate signal changes at C4-C5 and C5-C6. There is no additional bone marrow edema. There are no acute fractures. Craniocervical junction is unremarkable. Partially imaged intracranial compartment is unremarkable. Cervical arterial flow voids are maintained. Partially imaged multinodular thyroid gland is again noted which has been recently evaluated with thyroid ultrasound. C2-C3: A shallow disc protrusion mildly indents the ventral thecal sac. There is no foraminal stenosis. Findings are unchanged. C3-C4: Disc osteophyte mildly indents the ventral thecal sac. There is bilateral facet arthropathy. No significant central canal stenosis and no foraminal stenosis. C4-C5: A small central disc protrusion mildly indents the ventral thecal sac. Uncovertebral joint spurring and facet arthropathy result in worsening mild to moderate left-sided foraminal stenosis. C5-C6: Uncovertebral joint spurring and facet arthropathy result in worsening mild to moderate right-sided foraminal stenosis. No central canal and no left foraminal stenosis. Bilateral facet arthropathy. C6-C7: Slight annular disc bulge. Left greater then right facet arthropathy. No central canal stenosis. Mild foraminal encroachment bilaterally. C7-T1: Disc contour is normal. No central canal stenosis and no foraminal stenosis. MR/MR cervical spine wo con IMPRESSION: - Multilevel cervical spondylosis. Spondylitic changes result in progressive mild to moderate left C4-C5 and progressive mild to moderate right C5-C6 foraminal stenosis. There is no severe central canal stenosis within the cervical spine. - Partially imaged multinodular thyroid gland is again noted which has been recently evaluated with thyroid ultrasound.
== END 2023-06-14 07:17 | disposition home or self-care (01) ==
LOC: HO.MRI 07:16
PROVIDERS: PCP Registered Nurse; Visit Provider Registered Nurse
DX: M54.2 Cervicalgia (principal); G89.29 Other chronic pain
CPT/HCPCS: 72141

== ENCOUNTER 2023-07-13 08:46 | Outpatient (AMB) | payer OTHER, SELFPAY ==
--- NOTE | 2023-07-13 08:47 | MHC.OFFVIS ---
Intake Vital Signs 07/13/23 08:52 Height 5 ft 3 in Weight 136 lb 6 oz BMI 24.2 BP 132/62 Blood Pressure Location Lt brachial Position Sitting Respiration 16 Pulse 52 Pulse Source Pulse Oximeter Pulse Oximetry (%) 99 Oxygen Delivery Method Room Air Intake Visit Reasons: Chronic Neck Pain Allergies No Known Allergies [No Known Allergies*] Allergy (Verified 07/13/23 08:53) HPI HPI Comments History of Present Illness Details Patient is a pleasant 63 years old female presents today for follow up neck and upper back pain. She was last seen in our office by Dr. Azul in 2020 for low back pain. Denies any recent trauma, injury or falls. Left hand dominant. Patient presents today with chronic neck pain for over 10 years and has been worsening for the past year. It radiates to her left arm laterally and posteriorly with intermittent pins and needles sensations in her LUE inner arm and hand. She also has pain between shoulder blades. Left arm pain increases with any overhead reaching activities. Pain is described as constant pulling, tingling, aching, hurting, heavy, tiring, tight and squeezing. She has long hair and plans to cut it short due to significant left arm and neck pain. Her left arm is easily fatigued with ROM and ADLs. 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 Reports history of mild carpal tunnel syndrome on right side per EMG in the past. Pain affects her daily activities, sleep, social interactions and quality of life. Tylenol, lidocaine patches, diclofenac gel, ice/heat therapy, baclofen, physical therapy with continued symptoms. Denies any fever, chills, weight loss, dizziness, chest pain, shortness of breaths, imbalance issues, bladder or bowel dysfunction or saddle anesthesia. Patient also reports bilateral knee pain, left knee worse than right. Reports previous right knee arthroscopy in the past s/p mechanical fall. She received cortisone injections through Orthopedic office in 2022 and 2021 with mild relief. She is interested to trial a gel injection. Tylenol and NSAIDs have been ineffective to her. PRIOR 03/07/2021 Dr. Azul: Ms. Flynn is here for the follow-up after prolonged period of absence in my office. She reports pain in the back of getting worse. She was discussed in the past possibility to treat her pain with spinal cord stimulator. One time ago with Sue she was sent to psychological evaluation to get ready for spinal cord stimulation. However that was more than 1 year ago and we have to send her for another appointment and repeat psychological evaluation. Left groin pain: Left intra-articular hip injection was performed for her on 08/10/2020. She reported originally 100% pain relief for 1st 10-15 days, after that pain started to come back gradually. We can consider this groin pain a result of hip pathology. On physical exam there is pain exacerbation with external rotation of the left hip. Her primary care physician sent appropriately her for hip x-ray. In the past I offered her chronic opioid therapy with the explanation of the risks and minimal benefits on the longer run. She is very conscientious of for her possibility of getting dependent in even later on addicted to opioids. She is negative and rightfully so for chronic opioid therapy. She is under our observation in this office for past 3 years. She received multiple injections with no significant success to alleviate her pain. 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 She is currently working part-time and reports that her pain is severely interfering in her ability of performing her job duties.. She denies any trauma or surgery. She denies any radiation of pain down legs. [facility] Medical History Cervical high risk HPV (human papillomavirus) test positive Fibromyalgia Elevated cholesterol Karina's disease Non-toxic multinodular goiter Osteoarthritis of left hip Schatzki's ring Hiatal hernia Hx of migraines History of multinodular goiter IBS (irritable bowel syndrome) GERD (gastroesophageal reflux disease) Chronic pain syndrome Spondylosis, lumbar, with myelopathy Sacroiliitis Surgical History History of bilateral tubal ligation Hx of dilation and curettage Hx of arthroscopy of right knee History of esophagogastroduodenoscopy (EGD) Hx of colonoscopy History of cholecystectomy Family History Father Unknown family medical history Mother Arthritis Diverticulitis Gastritis Breast cancer Chronic asthma Adenomatous colon polyp HTN (hypertension) Maternal Grandmother Colon cancer Social History Household Members: None Housing: House Are you a primary complex care nurse practitioner to a significant other at home: Yes (mother) Do you presently have visiting nurse or other home services: No Alcohol intake: never Patient Tobacco Use Status: Never used Tobacco service: No Current occupational status: employed 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 Alert and oriented. Mood and affect appropriate. Follows and participates in conversation appropriately. Respiratory effort is unlabored. No cough. No nasal discharge. Able to transition from sit to stand unassisted. Ambulates with bilaterally normal heel strike and toe off. Neck Other: Patient with decreased cervical ROM in all planes/especially with right lateral rotation. Reports increased pain with cervical extension and flexion, worse with extension. Spurling compression test positive. Pain is unchanged by Spurling maneuver with retraction. Elvey's tension test positive on the left, with radiation of pain from neck to wrist and fingers. Lhermitte's test was negative. DTR intact, +1 left and +2 right. Patient demonstrated 5/5 right and 4/5 left motor strength of bilateral upper extremities. 2 + radial pulses. Significant tightness throughout left upper trapezius as well as TTP throughout bilateral upper trapezius muscles. No paravertebral tenderness over facet joint on affected side. +Tinels and +Phalen's test bilaterally, left>right. Neck: Yes full ROM, Yes no lymphadenopathy, No anterior neck swelling, Yes no JVD and No prominent dorsocervical fat pad Extrem General: Yes capillary refill normal, Yes no clubbing, cyanosis or edema and Yes no calf tenderness Right lower extremity: knee Details: normal to inspection, tenderness Location: of the medial joint line, normal ROM and crepitus; no swelling Left lower extremity: knee (Limited ROM due to pain) Details: normal to inspection, tenderness Location: of the medial joint line and of the lateral joint line and crepitus; no swelling Results Reviewed Results Reviewed: MR CERVICAL SPINE WITHOUT CONTRAST 06/14/23 CLINICAL INFORMATION: Chronic neck pain with worsening radicular symptoms. COMPARISON: Cervical spine MRI 02/18/2016. TECHNIQUE: MRI of the cervical spine was obtained using routine sequences without contrast. FINDINGS: Straightening of the cervical lordosis. The vertebral body heights are maintained. There is moderate to severe disc volume loss at C4-C5 and C5-C6, progressed. Moderate disc volume loss at C3-C4 again noted. There are Modic type I endplate signal changes at C4-C5 and C5-C6. There is no additional bone marrow edema. There are no acute fractures. Craniocervical junction is unremarkable. Partially imaged intracranial compartment is unremarkable. Cervical arterial flow voids are maintained. Partially imaged multinodular thyroid gland is again noted which has been recently evaluated with thyroid ultrasound. C2-C3: A shallow disc protrusion mildly indents the ventral thecal sac. There is no foraminal stenosis. Findings are unchanged. C3-C4: Disc osteophyte mildly indents the ventral thecal sac. There is bilateral facet arthropathy. No significant central canal stenosis and no foraminal stenosis. C4-C5: A small central disc protrusion mildly indents the ventral thecal sac. Uncovertebral joint spurring and facet arthropathy result in worsening mild to moderate left-sided foraminal stenosis. C5-C6: Uncovertebral joint spurring and facet arthropathy result in worsening mild to moderate right-sided foraminal stenosis. No central canal and no left foraminal stenosis. Bilateral facet arthropathy. C6-C7: Slight annular disc bulge. Left greater then right facet arthropathy. No central canal stenosis. Mild foraminal encroachment bilaterally. C7-T1: Disc contour is normal. No central canal stenosis and no foraminal stenosis. IMPRESSION: - Multilevel cervical spondylosis. Spondylitic changes result in progressive mild to moderate left C4-C5 and progressive mild to moderate right C5-C6 foraminal stenosis. There is no severe central canal stenosis within the cervical spine. - Partially imaged multinodular thyroid gland is again noted which has been recently evaluated with thyroid ultrasound. Assessment & Plan Assessment & Plan (1) Cervical radiculopathy: Code(s): M54.12 - Radiculopathy, cervical region (2) Chronic pain syndrome: Code(s): G89.4 - Chronic pain syndrome (3) Cervical spondylosis: Code(s): M47.812 - Spondylosis without myelopathy or radiculopathy, cervical region (4) Left knee pain: Code(s): M25.562 - Pain in left knee (5) Muscle spasms of neck: Code(s): M62.838 - Other muscle spasm Plan Cervical spine MRI results reviewed with patient. Report is noted above. Discussed interventional treatments for axial and radicular neck pain. Her axial cervical spine pain is more troublesome than left sided radicular symptoms. Patient also has symptoms of bilateral CTS and may consider Hand Specialist evaluation. Schedule Bilateral Diagnostic C4-C5-C6 MBB with local and fluoroscopy for potential peripheral nerve stimulation or RFA ablation, as well as therapeutic injections. Informational pamphlets provided. For left knee pain r/t OA will proceed with left knee Durolane injection with local and US guidance. Expectations, risks and benefits were reviewed for both procedures. Patient is aware she will be contacted to schedule these procedures. Scripts provided for gabapentin and Celebrex. Side effects and precautions discussed with patient. She is aware to avoid other NSAIDs while taking Celebrex prn. Patient requests script for magnesium for muscle spasms, she is not interested in other muscle relaxants due to drowsiness. All questions were answered and the patient is in agreement of plan. Follow-up after injections and sooner as needed. Medications: New gabapentin 300 mg PO BEDTIME 30 days 30 caps 1RF pain G89.4 - Chronic pain syndrome, M47.812 - Spondylosis without myelopathy or radiculopathy, cervical region, M54.12 - Radiculopathy, cervical region celecoxib (Celebrex) 200 mg PO BID PRN 60 caps 0RF pain M25.562 - Pain in left knee, M47.812 - Spondylosis without myelopathy or radiculopathy, cervical region magnesium glycinate 200 mg (2 x 100 mg) PO DAILY 30 days 60 tabs 1RF muscle spasms M47.812 - Spondylosis without myelopathy or radiculopathy, cervical region, M54.12 - Radiculopathy, cervical region, M62.838 - Other muscle spasm Coding Level of Care Code Est Pt Level 4 (22981) Diagnoses Cervical radiculopathy M54.12 Chronic pain syndrome G89.4 Cervical spondylosis M47.812 Left knee pain M25.562 Muscle spasms of neck M62.838
[2023-07-13 08:52] VITALS: BP 132/62; PULSE 52; RESP 16; O2SAT 99; BMI 24.2
== END 2023-07-13 09:34 | disposition home or self-care (01) ==
PROVIDERS: PCP Registered Nurse; Visit Provider Nurse Practitioner Family
DX: M54.12 Radiculopathy, cervical region (principal); G89.4 Chronic pain syndrome; M47.812 Spondylosis without myelopathy or radiculopathy, cervical region; M25.562 Pain in left knee; M62.838 Other muscle spasm
CPT/HCPCS: 99214

== ENCOUNTER → 2023-07-13 08:46 | Outpatient (BNVA) | payer OTHER, SELFPAY | PROVIDERS: PCP Registered Nurse; Visit Provider Nurse Practitioner Family | DX: M47.22 Other spondylosis with radiculopathy, cervical region (principal); M25.562 Pain in left knee; G89.4 Chronic pain syndrome; M62.838 Other muscle spasm; M79.7 Fibromyalgia; M16.12 Unilateral primary osteoarthritis, left hip; M46.1 Sacroiliitis, not elsewhere classified | CPT/HCPCS: 99212 ==

== ENCOUNTER 2023-07-18 13:51 | Outpatient (AMB) | payer OTHER, SELFPAY ==
--- NOTE | 2023-07-18 13:53 | MHC.OFFVIS ---
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 Intake Note: NPV Cyber Defense Incident Responder Required: No Accompanied by: Daughter Allergies No Known Allergies [No Known Allergies*] Allergy (Verified 07/18/23 13:55) Medication List - Last Reconciled 07/18/23 by David Carmen MD acetaminophen ER (Mapap Arthritis Pain) 1 tab PO Q8H PRN amitriptyline 5 mg PO BEDTIME PRN bisacodyl (Dulcolax (bisacodyl)) 10 mg (2 x 5 mg) PO BEDTIME 30 days capsaicin 0.025% 0.025 appl topical BID celecoxib (Celebrex) 200 mg PO BID PRN [Centrum Silver Women 1 tab PO DAILY] diclofenac sodium 1% 1 g topical BID dicyclomine 10 mg PO QID PRN diphenhydramine HCl 25 mg PO BEDTIME PRN duloxetine 40 mg PO DAILY gabapentin 300 mg PO BEDTIME 30 days ibuprofen 800 mg PO Q8H PRN lidocaine 5% 5 appl topical Q OTHER DAY omega 5-qxm-qav-fish oil 1,000 mg (120 mg-180 mg) (Fish Oil) 2 caps PO DAILY omeprazole 40 mg PO DAILY topiramate 50 mg PO DAILY HPI HPI Comments History of Present Illness Details Adela is here for consultation regarding palpitations and shortness of breath. She states that she has been noticing sensations of heart fluttering. On 1 occasion, she also felt short of breath at the same time with some chest pressure type sensation. However, other occasions she is only feeling palpitations. When she is going up flights of stairs, she may feel winded once she reaches the top. No clear anginal-type complaints. Otherwise, no known coronary disease or myocardial infarction or cardiomyopathy. [facility] Medical History Cervical high risk HPV (human papillomavirus) test positive Fibromyalgia Elevated cholesterol Karina's disease Non-toxic multinodular goiter Osteoarthritis of left hip Schatzki's ring Hiatal hernia Hx of migraines History of multinodular goiter IBS (irritable bowel syndrome) GERD (gastroesophageal reflux disease) Chronic pain syndrome Spondylosis, lumbar, with myelopathy Sacroiliitis Surgical History History of bilateral tubal ligation Hx of dilation and curettage Hx of arthroscopy of right knee History of esophagogastroduodenoscopy (EGD) Hx of colonoscopy History of cholecystectomy Family History Father Unknown family medical history Mother Arthritis Diverticulitis Gastritis Breast cancer Chronic asthma Adenomatous colon polyp HTN (hypertension) Maternal Grandmother Colon cancer Social History Household Members: None Housing: House Are you a primary senior resident care director to a significant other at home: Yes (mother) Do you presently have visiting nurse or other home services: No Alcohol intake: never Patient Tobacco Use Status: Never used Tobacco service: No Current occupational status: employed 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 History Menstrual Age of Menarche: 13 Review of Systems Const Denies weakness ENT Denies dizziness Card Denies chest pain, Denies chest pain with activity, Denies syncope, Denies rapid heart rate, Denies pedal edema, Denies edema, Denies leg edema, Denies lightheadedness, Denies dyspnea, Denies dyspnea on exertion and Denies orthopnea Resp Denies cough, Denies dyspnea and Denies dyspnea on exertion GI Denies hematochezia and Denies change in stool character Musc Denies abnormal gait, Denies muscle cramps, Denies muscle weakness, Denies numbness, Denies radiating pain into limb and Denies tingling Neuro Denies abnormal gait, Denies dizziness, Denies syncope, Denies numbness, Denies tingling and Denies weakness Physical Exam Vital Signs: Last Vital Signs Pulse 58 07/18/23 13:54 BP 118/70 07/18/23 13:54 BMI result Body Mass Index 24.2 Const General: comfortable and no acute distress Orientation/consciousness: patient oriented x3 HEENT Other: Unremarkable Head: Yes normal to inspection Neck Neck: Yes normal visual inspection Chest Chest palpation & inspection: normal inspection of the chest Resp Auscultation: clear to auscultation bilaterally Cardio Palpation: normal PMI Heart sounds: S1 normal heart sound present, S2 normal heart sound present, no gallops, no murmurs and no rubs GI Palpation (GI): Soft to palpation Back/Spine/Pelvis Other: unremarkable Skin General skin exam: no rashes or lesions noted Neuro General: patient oriented x3 Extrem General: Yes normal to inspection Psych Mental Status: mental status grossly normal Assessment & Plan Assessment & Plan (1) Heart palpitations: Code(s): R00.2 - Palpitations Plan Recent EKG with sinus bradycardia 54/Min; no significant ST-T changes and otherwise unremarkable. We will start with further workup with echocardiogram and Holter monitor. As the episodes are only once a week or so we can do a 2 week Holter. If this does not capture the information, then possibly a 30 day monitor. Follow-up after the above. Discussed with daughter who came for appointment. Orders: Orders CA echo transthoracic complete Today R00.2 - Palpitations ECG 14 day holter monitor Today R00.2 - Palpitations Medications: Changed From dicyclomine 10 mg PO QID PRN 120 caps 3RF abdominal pain R10.11 - Right upper quadrant pain To dicyclomine 10 mg PO QID PRN R10.11 - Right upper quadrant pain Coding Level of Care Code New Pt Level 3 (07298) Diagnoses Heart palpitations R00.2
[2023-07-18 13:54] VITALS: BP 118/70; PULSE 58; BMI 24.2
== END 2023-07-18 14:33 | disposition home or self-care (01) ==
PROVIDERS: PCP Registered Nurse; Referring Provider Registered Nurse; Visit Provider Internal Medicine
DX: R00.2 Palpitations (principal)
CPT/HCPCS: 99213

== ENCOUNTER → 2023-07-18 13:51 | Outpatient (BNVA) | payer OTHER, SELFPAY | PROVIDERS: PCP Registered Nurse; Visit Provider Internal Medicine | DX: R00.2 Palpitations (principal) | CPT/HCPCS: 99212 ==

== ENCOUNTER 2023-08-15 15:20 | Outpatient (REF) | payer OTHER, SELFPAY ==
[2023-08-15 16:52] LABS: C Reactive Protein < 0.10 mg/dL (< or = 0.50)
[2023-08-15 17:25] LABS: Erythrocyte Sedimentation Rate 11 MM/HR (0-20)
[2023-08-16 22:09] LABS: Prot Elec - Albumin 4.1 g/dL (3.8-4.8); Prot Elec - Alpha1 0.2 g/dL (0.2-0.3); Prot Elec - Alpha2 0.7 g/dL (0.5-0.9); Prot Elec - Beta 1 0.4 g/dL (0.4-0.6); Prot Elec - Beta 2 0.4 g/dL (0.2-0.5); Prot Elec - Gamma 0.9 g/dL (0.8-1.7); Prot Elec - Total Protein 6.7 g/dL (6.1-8.1)
== END 2023-08-15 15:21 | disposition home or self-care (01) ==
LOC: HO.HHCL 15:20
PROVIDERS: Visit Provider Registered Nurse
DX: R51.9 Headache, unspecified (principal); M26.69 Other specified disorders of temporomandibular joint
CPT/HCPCS: 36415; 84165; 85652; 86140

== ENCOUNTER → 2023-08-17 07:42 | Outpatient (REF) | payer OTHER, SELFPAY ==
--- NOTE | 2023-08-17 07:47 | CA_ITS ---
Transthoracic Echocardiogram Patient (Last, First, Middle): Adela Flynn Y Gender: Female Date of : 1960 Age: 63 Procedure Date: 08/17/2023 Procedure Type: Transthoracic Echocardiogram Location: OP Height: 160.02 cm Weight: 61.69 kg BSA: 1.64 m2 Heart Rate: bpm BP: 122 / 60 mmHg Commercial Lines Sales Executive: Referring MD: David Carmen MD Symptoms: R00.2 - Palpitations Study Quality: Good ECG Rhythm: Sinus Conclusions: - The left ventricular systolic function is normal. The calculated ejection fraction is 68% by biplane method. - No obvious valvular pathology seen on this study. Findings Left Ventricle Normal left ventricular cavity size. There is normal left ventricular wall thickness. The left ventricular systolic function is normal. The calculated ejection fraction is 68% by biplane method. There is no evidence of regional wall motion abnormalities. Diastolic function is normal for age. Right Ventricle Mildly increased right ventricular cavity size. There is normal right ventricular systolic function. Atria The left atrium is mildly dilated. The right atrium is normal in size. Aortic Valve There is a normal trileaflet aortic valve. There is no aortic valve stenosis. There is trace (trivial) aortic valve regurgitation. Mitral Valve The mitral valve appears normal. There is trace mitral valve regurgitation. There is no mitral valve stenosis. Pulmonic Valve There is trace pulmonic valve regurgitation. Tricuspid Valve Normal tricuspid valve structure. There is mild tricuspid valve regurgitation. There is no evidence of pulmonary hypertension. Great Vessels The asc aorta is normal in size. Venous The inferior vena cava is normal in size and collapses greater than 50% with inspiration. Pericardium/Pleural There is no evidence of pericardial effusion. Prior Study Comparison No prior study available for comparison. Recommendations, Care & Conclusions No obvious valvular pathology seen on this study. Measurements 2D Linear Measurements IVSd: 0.95 0.6-0.9/0.6-1.0 cm LVIDd: 4.40 3.9-5.3/4.2-5.9 cm LVIDd Index: 2.68 2.4-3.2/2.2-3.1 cm/m2 LVIDs: 2.51 2.0-3.6 cm LVPWd: 1.03 0.7-1.1 cm Ao Root: 3.10 2.1-3.5 cm LA Diam: 2.80 2.7-3.8/3.0-4.0 cm LAIDs Index: 1.71 1.5-2.3 cm/m2 LV Mass: 181.24 67-162/88-224 g LV Mass Index: 110.51 43-95/49-115 g/m2 LVOT Diam: 2.00 3.0+(-)1.3 cm 2D Systolic Function EF 4C: 63.80 >55% EF 2C: 72.40 >55% EF BiP: 68.40 >55% Mitral Valve MV Pk E: 0.78 MV PK A: 0.74 MV Decel Time: 160.00 E/A: 1.10 E'Lateral: 12.10 E'Medial: 8.16 E/E' Med: 9.60 E/E' Lat: 6.50 PHT: 47.00 MVA PHT: 4.68 Decel [place]: 4.89 Aortic Valve AoV Pk Timmy: 1.27 AoV Mn Timmy: 0.84 AoV VTI: 0.35 AoV Pk Grad: 6.00 Aov Mn Grad: 3.00 JUDAH Cont.VTI: 2.05 LVOT LVOT Pk Timmy: 0.97 LVOT Mn Timmy: 0.58 LVOT VTI: 0.23 LVOT Pk Grad: 4.00 LVOT Mn Grad: 2.00 LVOT Diam: 2.00 LVOT Area: 3.14 Diastolic Function MV Pk E: 0.78 MV Pk A: 0.74 E/A: 1.10 E'Medial: 8.16 E/E' Med: 9.60 E' Laterial: 12.10 E/E' Lat: 6.50 Right Ventricle TAPSE (mm): 32.00 TVS' Timmy: 13.00 Tricuspid Valve TR Pk Timmy: 2.33 TR Pk Grad: 22.00 RA Press: 3.00 RVSP: 25.00 Great Vessels Aorta Ao Root-2D: 3.10 2.0-3.7 cm Ao Asc: 3.20 2.1-3.4 cm Pulmonary Valve PV Pk Timmy: 0.88 Peak PV Grad: 3.00 Updated in Other Vendor System with Status of Final David Carmen MD electronically signed on 08/18/2023 2:43:04 PM with status of Final
--- NOTE | 2023-08-17 07:47 | HM_ITS ---
Conclusion: 1. Patient was monitored for total period of 13 days and 8 hours 2. Baseline was normal sinus rhythm with average heart of 61 beats per minute 3. Frequent sinus bradycardia noted with 55.5% of the time heart rate below 60 beats per minute 4. No significant pauses or ectopy burden noted 5. A total SVT events noted longest lasting 10 beats and the fastest at 152 beats per minute 6. Patient reported 5 events with symptoms of palpitations correlating with sinus tachycardia MTDD
== END ==
LOC: HO.CARD 07:42
PROVIDERS: PCP Registered Nurse; Visit Provider Internal Medicine
DX: R00.2 Palpitations (principal)
CPT/HCPCS: 93246; 93306

== ENCOUNTER → 2023-08-17 07:47 | Outpatient (BNV) | payer OTHER, SELFPAY | PROVIDERS: PCP Registered Nurse; Visit Provider Internal Medicine | DX: R00.1 Bradycardia, unspecified (principal) | CPT/HCPCS: 93248; 93306 ==

== ENCOUNTER 2023-08-23 11:10 | Outpatient (REF) | payer OTHER, SELFPAY ==
--- NOTE | ~2023-08-23 | MR_ITS ---
MRI OF THE BRAIN WITH AND WITHOUT IV CONTRAST INDICATION: Right temporal headache radiating to the cheek/jaw. COMPARISON: Brain MRI 04/08/2021. TECHNIQUE: Multiplanar multisequence MR imaging of the brain was obtained without and following the administration of 6 mL of Gadavist without complication. FINDINGS: There is no pathologic intracranial enhancement. Mild chronic microangiopathy. There is no hydrocephalus, extra-axial surface collection, or herniation. The major flow voids at the skull base are preserved. There is no acute infarct on diffusion-weighted imaging. There is no intracranial hemorrhage on the gradient recalled echo acquisition. The midline structures are normal. The cerebellar tonsils are normally positioned. The cerebellum and brainstem are normal. The craniocervical junction is normal. Osseous marrow signal intensity is homogenous. The visualized soft tissues are unremarkable. MR/MR head/brain wo/w con IMPRESSION: - No acute intracranial findings. No pathologic enhancement intracranially. - There is mild chronic microangiopathy.
[2023-08-23] MEDS: gadobutroL 7.5 ML VIAL IVPUSH (12:04)
== END 2023-08-23 11:11 | disposition home or self-care (01) ==
LOC: HO.MRI 11:10
PROVIDERS: PCP Registered Nurse; Visit Provider Registered Nurse
DX: R51.9 Headache, unspecified (principal); M26.69 Other specified disorders of temporomandibular joint
CPT/HCPCS: 70553; A9585

== ENCOUNTER 2023-09-20 09:00 | Outpatient (RCR) | payer OTHER, SELFPAY ==
--- NOTE | 2023-08-29 15:28 | MHC.PT.EP ---
[facility] [place] Office [place] Office [place] Office [address] Greg Lagos [address] [phone] F: [phone] F: [phone] F: [phone] F: [phone] Physical Therapy Plan of Care Date of Evaluation: 08/29/23 Date of Surgery: Diagnosis: CERV SPONDYLOSIS, CERV RADICULOPATHY AND MUSCLE SPASM Assessment: 63 YO FEMALE REF TO PT W DX OF EXACERBATION OF CHRONIC CERVICAL PAIN AND Lt UE RADICULOPATHY. 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 SHE IS LEFT HAND DOMINANT. OBJECTIVE: LIMITED CERV AROM, (+) SOFT TISSUE IRRITABILITY, (+) RADICULAR SXS INTO LEFT UE, LOVELY HAND TINGLING AND MD ? CTS, DECR POSTURAL AWARENESS, FLUCTUATING SOFT TISSUE IRRITABILITY. FUNCTIONAL LIMITATIONS INCLUDE DIFFIC SLEEPING, W PROLONGED SITTING, LIFTING AND CARRYING OBJECTS, AND SOME SXS W JOB DUTIES . Pt IS A VERY GOOD PT CANDIDATE TO GUIDE HER IN ADDRESSING THE ABOVE FINDINGS, PAIN MGMT, DEV A PROGRESSIVE HEP AND SELF-SX MGMT STRATEGIES/ MAXIMIZING FUNCTIONAL INDEPENDENCE. Frequency and Duration: The patient will be seen 2 x WK x 4 WKS Short Term Goals: *DECR CERV PAIN TO 2-3/10 AND Lt UE RADIC SXS DCER BY 75% *IMPROVE POSTURAL AWARENESS INCREASE CERV AROM *INITIATE HEP-> ACTIVATE SCAP RETR Physical Therapy Professor Goals: *Pt INDEP W HEP AND SELF SX MGMT TECHN *Pt DEMON PROPER BODY MECH W 2:2 ADL/ WORK SIMUL TASKS *IMPROVED FUNCT MMOB TERESITA -> IMPROVED NPDI (AT EVAL ) Treatment Plan: Modalities to reduce pain, spasms and effusion. Manual therapy to restore motion and function. Therapeutic exercise to improve strength and flexibility. Neuromuscular re-education for posture and balance. Therapeutic activities to return to functional activities of daily living. Electronically signed by: DOMONIQUE BLISSPT Please sign and return to therapist. Thank you for your referral.
--- NOTE | 2023-09-20 10:05 | MHC.PT.DC ---
[facility] [place] Office [place] Office [place] Office [address] Greg Lagos [address] [phone] F: [phone] F: [phone] F: [phone] F: [phone] Physical Therapy Discharge Report Diagnosis: CERV SPONDYLOSIS, CERV RADICULOPATHY AND MUSCLE SPASM Date of Surgery: Date of Evaluation: 08/29/23 Date of Discharge: 09/20/23 Treatments to Date: 5 Cancellations to Date: 0 No Shows to Date: 0 Discharge Status: Achieved Goals Improved Function Independent with HEP Discharge Summary: [facility]CR[facility] HAS PROGRESSED WELL IN PT, SHE DEMON IMPROVED CERV AROM AND FUNCT TOLERANCE, HER OVERALL STRENGTH HAS IMPROVED AND SHE IS INDEP W POSTURAL CORRECTION. THIS AM, HER LOVELY HAND OA WAS INFLUENCING HER > HER NECK SXS. THE Pt FEELS SHE IS READY TO CONT W HER HEP AND SELF MANAGE HER CERV SXS AT THIS TIME- SHE HAS IMPROVED ERGONOMICS FOR HER WORKPLACE. THE Pt HAS MET HER PT GOALS TO MAX POTENTIAL AT THIS TIME AND IS D/C W HER HEP. Electronically signed by: DOMONIQUE BLISS,PT Please sign and return to therapist. Thank you for your referral.
== END 2023-09-20 10:04 | disposition home or self-care (01) ==
LOC: HO.PT 09:00
PROVIDERS: PCP Registered Nurse; Visit Provider Nurse Practitioner Family
DX: M47.812 Spondylosis without myelopathy or radiculopathy, cervical region (principal); M54.12 Radiculopathy, cervical region; M62.838 Other muscle spasm
CPT/HCPCS: 97110; 97140; 97162; 97535

== ENCOUNTER 2023-09-25 13:41 | Outpatient (AMB) | payer OTHER, SELFPAY ==
--- NOTE | 2023-09-25 13:44 | MHC.OFFVIS ---
Vital Signs 09/25/23 13:45 Height 5 ft 3 in Weight 138 lb 0.15 oz BMI 24.4 BP 96/58 L Blood Pressure Location Lt brachial Position Sitting Pulse 50 Pulse Source Pulse Oximeter Intake Visit Reasons: f/u MNG Intake Note: Patient present today for MNG follow up visit. Diorama Model Maker Required: No Accompanied by: Self / Same As Patient Allergies No Known Allergies [No Known Allergies*] Allergy (Verified 09/25/23 13:49) Medication List - Last Reconciled 09/25/23 by Gasper Erickson MD acetaminophen ER (Mapap Arthritis Pain) 1 tab PO Q8H PRN amitriptyline 5 mg PO BEDTIME PRN bisacodyl (Dulcolax (bisacodyl)) 10 mg (2 x 5 mg) PO BEDTIME 30 days capsaicin 0.025% 0.025 appl topical BID celecoxib (Celebrex) 200 mg PO BID PRN [Centrum Silver Women 1 tab PO DAILY] diclofenac sodium 1% 1 g topical BID dicyclomine 10 mg PO QID PRN diphenhydramine HCl 25 mg PO BEDTIME PRN duloxetine 40 mg PO DAILY gabapentin 300 mg PO BEDTIME 30 days ibuprofen 800 mg PO Q8H PRN lidocaine 5% 5 appl topical Q OTHER DAY omega 8-vdb-feh-fish oil 1,000 mg (120 mg-180 mg) (Fish Oil) 2 caps PO DAILY omeprazole 40 mg PO DAILY topiramate 50 mg PO DAILY HPI Comments Details: 63 yo female today for fup visit, for non toxic multinodular goiter. I have sent the patient for total thyroidectomy for compressive symptoms but the local thyroid surgeon did not take her insurance. She was not able to go to [place] for surgery. She reports that her dysphagia is getting worse. She had fine-needle aspiration of left dominant nodule on 06/12/2019 cytology was consistent with benign follicular nodule [place] category 2. She is feeling well, she has no complaints today. She had FNA of left mid pole nodule on 04/20/16 size 1.9 cm consistent with benign follicular nodule. Denies cold or heat intolerance, her weight is stable, postmenopausal, denies diarrhea, constipation, insomnia, improved fatigue, denies dry skin, she reports worsening dysphagia, denies dyspnea, dysphonia, tremors, positive occasional palpitations, no irritability, no anxiety. She also reports that she has been snoring a lot. Family History: Mother has nodules, daughter had a large goiter required thyroidectomy, not cancer. 07/07/2020 US THYROID Right Thyroid Lobe: 5.8 x 2.0 x 1.7 cm, volume 10.6 mL. Previously 4.7 x 1.6 x 1.9 cm, volume 7.5 mL. Parenchyma: The gland echotexture is homogeneous. Thyroid vascularity is normal. Left Thyroid Lobe: 5.9 x 2.1 x 2.0 cm, volume 13.1 mL. Previously 5.2 x 2.0 x 2.2 cm, volume 12.0 mL. Parenchyma: The gland echotexture is homogeneous. Thyroid vascularity is increased. Isthmus: 0.1 cm in maximum AP dimension. Previously 0.2 cm. Estimated total number of nodules greater than or equal to 1 cm: 3. Blue Leather Sorter nodules are described as follows: 1. Location: Right superior. Size: 0.6 x 0.5 x 0.5 cm, volume 0.08 mL. Previously: 0.7 x 0.5 x 0.6 cm, volume 0.11 mL. Nodule characteristics: Composition: Solid/almost completely solid (2). Echogenicity: Hypoechoic (2). Shape: Not taller than wide (0). Margins: Smooth (0). Echogenic Foci: None (0). ACR TI-RADS total points: 4 ACR TI-RADS category: 4 Significant change in size (>/= 20% in 2 dimensions and minimal increase of 2 mm or 50% or greater increase in volume): None Change in features: None Change in ACR TI-RADS risk category: None 2. Location: Right superior. Size: 0.9 x 0.7 x 0.9 cm, volume 0.33 mL. Previously: 0.9 x 0.8 x 0.8 cm, volume 0.30 mL. Nodule characteristics: Composition: Solid (2). Echogenicity: Hypoechoic (2). Shape: Not taller than wide (0). Margins: Smooth (0). Echogenic Foci: None (0). ACR TI-RADS total points: 4 ACR TI-RADS category: 4 Significant change in size (>/= 20% in 2 dimensions and minimal increase of 2 mm or 50% or greater increase in volume): None Change in features: None Change in ACR TI-RADS risk category: None 3. Location: Right mid/superior. Size: 1.0 x 0.8 x 0.8 cm, volume 0.33 mL. Previously: 0.9 x 0.7 x 0.8 cm, volume 0.26 mL. Nodule characteristics: Composition: Spongiform (0). Echogenicity: Anechoic (0). Shape: Not taller than wide (0). Margins: Smooth (0). Echogenic Foci: None (0). ACR TI-RADS total points: 0 ACR TI-RADS category: 1 Significant change in size (>/= 20% in 2 dimensions and minimal increase of 2 mm or 50% or greater increase in volume): None Change in features: None Change in ACR TI-RADS risk category: None 4. Location: Left mid/superior. Size: 2.2 x 1.8 x 1.9 cm, volume 4.06 mL. Previously: 2.1 x 1.9 x 1.7 cm, volume 3.55 mL. Nodule characteristics: Composition: Solid (2). Echogenicity: Isoechoic (1). Shape: Not taller than wide (0). Margins: Smooth (0). Echogenic Foci: None (0). ACR TI-RADS total points: 3 ACR TI-RADS category: 3 Significant change in size (>/= 20% in 2 dimensions and minimal increase of 2 mm or 50% or greater increase in volume): None Change in features: None Change in ACR TI-RADS risk category: None 5. Location: Left inferior/lateral. Size: 1.2 x 0.9 x 0.8 cm, volume 0.45 mL. Previously: Not documented on the prior study. Nodule characteristics: Composition: Solid (2). Echogenicity: Isoechoic (1). Shape: Taller than wide (3). Margins: Smooth (0). Echogenic Foci: None (0). ACR TI-RADS total points: 6 ACR TI-RADS category: 4 Laboratory Tests 07/07/20 09:38 25-OH Vitamin D Total 33.4 TSH 0.81 PFSH Medical History Cervical high risk HPV (human papillomavirus) test positive Fibromyalgia Elevated cholesterol Karina's disease Non-toxic multinodular goiter Osteoarthritis of left hip Schatzki's ring Hiatal hernia Hx of migraines History of multinodular goiter IBS (irritable bowel syndrome) GERD (gastroesophageal reflux disease) Chronic pain syndrome Spondylosis, lumbar, with myelopathy Sacroiliitis Surgical History History of bilateral tubal ligation Hx of dilation and curettage Hx of arthroscopy of right knee History of esophagogastroduodenoscopy (EGD) Hx of colonoscopy History of cholecystectomy Family History Father Unknown family medical history Mother Arthritis Diverticulitis Gastritis Breast cancer Chronic asthma Adenomatous colon polyp HTN (hypertension) Maternal Grandmother Colon cancer Social History Household Members: None Housing: House Are you a primary healthcare management consultant to a significant other at home: Yes (mother) Do you presently have visiting nurse or other home services: No Alcohol intake: never Patient Tobacco Use Status: Never used Tobacco service: No Current occupational status: employed 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 There are no no thyroid nodules palpated. Although the Comfort sign was negative, patient did have discomfort on raising her arms above her head Assessment & Plan Assessment & Plan (1) Non-toxic multinodular goiter: Code(s): E04.2 - Nontoxic multinodular goiter Category: Medical Plan: This is a 63-year-old female with a history of multinodular goiter and Karina's thyroiditis status post FNA of a left nodule x2 with benign cytology. She appears to be clinically euthyroid. Recent ultrasound shows stability in the size of the nodules Plan is to send the patient to Dr. Barron for possible thyroidectomy. Will also recheck TSH and free T4. Orders: Referrals General Surgery Referral E04.2 - Nontoxic multinodular goiter Coding Level of Care Code Est Pt Level 3 (92834) Diagnoses Non-toxic multinodular goiter E04.2
[2023-09-25 13:45] VITALS: BP 96/58; PULSE 50; BMI 24.4
== END 2023-09-25 14:32 | disposition home or self-care (01) ==
PROVIDERS: PCP Registered Nurse; Visit Provider Internal Medicine Endocrinology, Diabetes & Metabolism
DX: E04.2 Nontoxic multinodular goiter (principal)
CPT/HCPCS: 99213

== ENCOUNTER 2023-09-25 13:41 | Outpatient (REF) | payer OTHER, SELFPAY ==
[2023-09-25 16:06] LABS: Free T4 (Free Thyroxine) 0.83 ng/dL (0.71-1.85); Thyroid Stimulating Hormone 1.36 uIU/mL (0.32-4.0)
== END 2023-09-25 13:42 | disposition home or self-care (01) ==
LOC: HO.LAB 13:41
PROVIDERS: PCP Registered Nurse; Visit Provider Internal Medicine Endocrinology, Diabetes & Metabolism
DX: E04.2 Nontoxic multinodular goiter (principal)
CPT/HCPCS: 36415; 84439; 84443; 99212

== ENCOUNTER 2023-10-24 14:13 | Outpatient (AMB) | payer OTHER, SELFPAY ==
--- NOTE | 2023-10-24 14:18 | MHC.OFFVIS ---
Vital Signs 10/24/23 14:28 Height 5 ft 3 in Weight 138 lb 7.205 oz BMI 24.5 BP 104/63 Blood Pressure Location Rt brachial Position Sitting Pulse 57 Intake Visit Reasons: 6 months follow up Intake Note: Patient returns to in office 6 months follow up of epigastric pain. CC: Patient c/o epigastric pain, constipation, and dysphagia. Virtual Reality Specialist Required: No Accompanied by: Self / Same As Patient Allergies No Known Allergies [No Known Allergies*] Allergy (Verified 11/08/23 14:05) HPI HPI 6 months follow up: Details: Assessment & Plan (1) RUQ abdominal pain: Code(s): R10.11 - Right upper quadrant pain (2) Weight loss: Code(s): R63.4 - Abnormal weight loss (3) Constipation: Code(s): K59.00 - Constipation, unspecified (4) Dysphagia: Code(s): R13.10 - Dysphagia, unspecified (5) GERD (gastroesophageal reflux disease): Code(s): K21.9 - Gastro-esophageal reflux disease without esophagitis (6) Achalasia: Code(s): K22.0 - Achalasia of cardia Plan She is agreeable to a 5 year follow up r/t FHX crc. Dysphagia continues, Dr. Renteria referred her to [facility] for ESOPHAGEAL manometry, however her insurance is not covered at this institution. Her primary care referred her to [facility] which falls under her coverage in is probably affiliated with [facility]. Since they have access to esophageal manometry will also allow them to do the upper endoscopy. She continues on her omeprazole for GERD. She has not been using her bisacodyl for constipation because she has been using increased fiber on, dietary interventions and chamomile tea with good results. She did not have any improvement with swallowing or bowel irritability with dicyclomine so we will stop it. Return office visit in 6 months which she can contact me if any problems arise coordinating her swallowing issue with [facility]. Orders: Referrals Gastroenterology Referral K22.0 - Achalasia of cardia Esophageal manometry results 07/31/2023 INTERPRETATION/FINDINGS The GEJ morphology is type 3A. There is a small hiatal hernia. Peristalsis is mostly intact. Some peristalsis shows multiphase contractions and 1 is hyper contractile. There are no significant esophageal pressurization patterns or vascular artifact noted. Nonspecific bolus transit abnormality with incomplete bolus transit in nearly half of swallows, mostly with bolus escape the proximal pressure trough. IMPRESSIONS Normal high-resolution esophageal contractility with nonspecific bolus transit abnormality and small hiatal hernia. TODAY'S VISIT We review the finding than since it does not seem that achalasia is the problem it likely is due to her rather large hiatal hernia. At this point since she has failed all other management I think we need to consider whether hiatal hernia repair is a possibility. I am referring her to the surgeon to discuss this as a possible solution. In the meantime she continues on her omeprazole and senna. Return office visit in 6 months [facility] Medical History Dysphagia Weight loss Cervical high risk HPV (human papillomavirus) test positive Fibromyalgia Elevated cholesterol Karina's disease Non-toxic multinodular goiter Osteoarthritis of left hip Schatzki's ring Hiatal hernia Hx of migraines History of multinodular goiter IBS (irritable bowel syndrome) GERD (gastroesophageal reflux disease) Chronic pain syndrome Spondylosis, lumbar, with myelopathy Sacroiliitis Surgical History History of bilateral tubal ligation Hx of dilation and curettage Hx of arthroscopy of right knee History of esophagogastroduodenoscopy (EGD) Hx of colonoscopy History of cholecystectomy Family History Father Unknown family medical history Mother Arthritis Diverticulitis Gastritis Breast cancer Chronic asthma Adenomatous colon polyp HTN (hypertension) Maternal Grandmother Colon cancer Daughter Hypothyroid Daughter Traveling blood clot in leg Obesity Prediabetes Social History Household Members: None Housing: House Are you a primary healthcare insurance sales agent to a significant other at home: Yes (mother) Do you presently have visiting nurse or other home services: No Alcohol intake: never Patient Tobacco Use Status: Former Tobacco user Years Smoked: quit 20 yrs ago service: No Current occupational status: employed 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 History Menstrual Age of Menarche: 13 Review of Systems Const Denies fatigue, Denies fever(s), Denies night sweats, Denies poor appetite and Denies weight loss Eyes Details: glasses Reports requires corrective lenses ENT Reports Normal hearing present, Denies dental pain, Reports dysphagia, Denies hearing loss, Denies mouth pain, Denies odynophagia, Denies throat swelling, Denies tongue swelling and Reports other (Dentition adequate) Card Reports no additional complaints Resp Reports no additional complaints GI Details: Denies abdominal pain, Denies melena, Denies bloating, Denies hematochezia, Reports constipation, Denies GI cramping, Reports dysphagia, Denies excessive flatus, Denies early satiety, Reports heartburn, Denies diarrhea, Denies nausea, Denies odynophagia, Denies vomiting and Denies hematemesis Skin/Breast Denies pruritus, Denies lesions, Denies rash and Denies jaundice Neuro Reports Normal hearing present and Denies Abnormal speech present Endo Denies fatigue Aller/Immun Denies throat swelling and Denies tongue swelling Physical Exam Vital Signs: Last Vital Signs Pulse 57 10/24/23 14:28 BP 104/63 10/24/23 14:28 BMI result Body Mass Index 24.5 Const General: cooperative, no acute distress, well developed and well groomed Nutritional Appearance: average body habitus and well nourished Orientation/consciousness: oriented to person, oriented to place and oriented to time Limitations: No language barrier HEENT Head: Yes normocephalic and Yes atraumatic Eyes General: appearance normal, both eyes and all related structures Pupils: Equal, round and reactive pupils present Neck Neck: Yes normal visual inspection and Yes no lymphadenopathy Thyroid: Thyroid normal Resp Effort & Inspection: normal respiratory effort and able to speak in complete sentences Auscultation: clear to auscultation bilaterally Cardio Rate: regular rate Rhythm: regular rhythm Heart sounds: Normal, physiologic split S2 sound present Peripheral pulses: radial pulses present and posterior tibial pulses present GI Inspection: No distended and No Abdominal panniculus present Palpation (GI): Soft to palpation, nontender, no guarding, not rigid and No hepatosplenomegaly present Percussion: Yes normal to percussion Auscultation: normal bowel sounds Rectal Exam - Female: deferred Skin General skin exam: no rashes or lesions noted, turgor normal, skin not dry, no jaundice, No spider nevi and no striae Rashes: no rashes Nails: normal Neuro General: oriented to person, oriented to place and oriented to time Cranial nerves: Yes Equal, round and reactive pupils present and Yes Normal hearing present Speech: No Abnormal speech present Extrem General: Yes normal to inspection, No clubbing, No cyanosis and No edema Psych Appearance: grossly normal and well kempt Mental Status: mental status grossly normal Speech and movement: Normal speech and movement present Affect: normal affect Attitude: cooperative Thought process: Normal thought process present and not confabulating Thought content: Normal thought content present Insight: Limited insight present (Psych) Judgement: Limited judgement present (Psych) Assessment & Plan Assessment & Plan (1) Dysphagia: Code(s): R13.10 - Dysphagia, unspecified Category: Medical (2) Constipation: Code(s): K59.00 - Constipation, unspecified Category: Medical Plan We review the finding than since it does not seem that achalasia is the problem it likely is due to her rather large hiatal hernia. At this point since she has failed all other management I think we need to consider whether hiatal hernia repair is a possibility. I am referring her to the surgeon to discuss this as a possible solution. In the meantime she continues on her omeprazole and senna. Return office visit in 6 months Orders: Referrals Bariatric Surgery Referral R13.10 - Dysphagia, unspecified Medications: New sennosides (Senna Laxative) 17.2 mg (2 x 8.6 mg) PO BEDTIME 60 tabs 6RF K59.00 - Constipation, unspecified Refilled omeprazole 40 mg PO DAILY 90 caps 3RF Discontinued bisacodyl Discontinued Reason: Doctor's Order 10 mg (2 x 5 mg) PO BEDTIME 30 days 60 tabs 0RF Coding Level of Care Code Est Pt Level 3 (20884) Diagnoses Dysphagia R13.10 Constipation K59.00
[2023-10-24 14:28] VITALS: BP 104/63; PULSE 57; BMI 24.5
== END 2023-10-24 15:00 | disposition home or self-care (01) ==
PROVIDERS: PCP Registered Nurse; Referring Provider Registered Nurse; Visit Provider Nurse Practitioner
DX: R13.10 Dysphagia, unspecified (principal); K59.00 Constipation, unspecified
CPT/HCPCS: 99213

== ENCOUNTER → 2023-10-24 14:13 | Outpatient (BNVA) | payer OTHER, SELFPAY | PROVIDERS: PCP Registered Nurse; Visit Provider Nurse Practitioner | DX: R13.10 Dysphagia, unspecified (principal); K59.00 Constipation, unspecified | CPT/HCPCS: 99212 ==

== ENCOUNTER 2023-10-26 14:10 | Outpatient (AMB) | payer OTHER, SELFPAY ==
[2023-10-26 14:27] VITALS: BP 110/60; PULSE 55; BMI 24.2
--- NOTE | 2023-10-26 14:27 | A.OFFVIS_ITS ---
Vital Signs 10/26/23 14:27 Height 5 ft 3 in Weight 136 lb 10.986 oz BMI 24.2 BP 110/60 Blood Pressure Location Lt brachial Position Sitting Pulse 55 Pulse Source Pulse Oximeter Intake Visit Reasons: 2 mth f/up echo/ holter HS Allergies No Known Allergies [No Known Allergies*] Allergy (Verified 10/24/23 14:31) Medication List - Last Reconciled 10/26/23 by Maranda Thompson NP acetaminophen ER (Mapap Arthritis Pain) 1 tab PO Q8H PRN amitriptyline 5 mg PO BEDTIME PRN capsaicin 0.025% 0.025 appl topical BID [Centrum Silver Women 1 tab PO DAILY] diclofenac sodium 1% 1 g topical BID diphenhydramine HCl 25 mg PO BEDTIME PRN duloxetine 40 mg PO DAILY ibuprofen 800 mg PO Q8H PRN lidocaine 5% 5 appl topical Q OTHER DAY omega 1-gai-ars-fish oil 1,000 mg (120 mg-180 mg) (Fish Oil) 2 caps PO DAILY omeprazole 40 mg PO DAILY sennosides (Senna Laxative) 17.2 mg (2 x 8.6 mg) PO BEDTIME topiramate 50 mg PO DAILY HPI Comments Details: 63-year-old female presents today for a follow-up after testing. She is follow- up after having testing done for palpitations. She reports she still gets the palpitations. She had one occurrence where she got chest discomfort and short of breath with it prior to seeing Dr. Carmen. She did state she feels like palpitations on days where she is not drinking as much water or has poor sleep. She overall avoids caffeine and drinks one cup of coffee a day and one cup of a herbal sleepytime tea at night time. She does not smoke or drink alcohol for some time now. Denies chest pain, prolonged palpitations, swelling, or shortness of breath. [facility] Medical History Cervical high risk HPV (human papillomavirus) test positive Fibromyalgia Elevated cholesterol Karina's disease Non-toxic multinodular goiter Osteoarthritis of left hip Schatzki's ring Hiatal hernia Hx of migraines History of multinodular goiter IBS (irritable bowel syndrome) GERD (gastroesophageal reflux disease) Chronic pain syndrome Spondylosis, lumbar, with myelopathy Sacroiliitis Surgical History History of bilateral tubal ligation Hx of dilation and curettage Hx of arthroscopy of right knee History of esophagogastroduodenoscopy (EGD) Hx of colonoscopy History of cholecystectomy Family History Father Unknown family medical history Mother Arthritis Diverticulitis Gastritis Breast cancer Chronic asthma Adenomatous colon polyp HTN (hypertension) Maternal Grandmother Colon cancer Social History Household Members: None Housing: House Are you a primary daytime caregiver to a significant other at home: Yes (mother) Do you presently have visiting nurse or other home services: No Alcohol intake: never Patient Tobacco Use Status: Never used Tobacco service: No Current occupational status: employed 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 History Menstrual Age of Menarche: 13 Review of Systems Const Denies weakness ENT Denies dizziness Card Denies chest pain, Denies chest pain with activity, Denies syncope, Denies rapid heart rate, Denies pedal edema, Denies edema, Denies leg edema, Denies lightheadedness, Denies palpitations, Denies dyspnea, Denies dyspnea on exertion and Denies orthopnea Resp Denies cough, Denies dyspnea and Denies dyspnea on exertion GI Denies hematochezia and Denies change in stool character Musc Denies abnormal gait, Denies muscle cramps, Denies muscle weakness, Denies numbness, Denies radiating pain into limb and Denies tingling Neuro Denies abnormal gait, Denies dizziness, Denies syncope, Denies numbness, Denies tingling and Denies weakness Endo Denies palpitations Physical Exam Vital Signs: BMI result Body Mass Index 24.2 Const General: healthy appearing and no acute distress Orientation/consciousness: patient oriented x3 HEENT Head: Yes normal to inspection Eyes General: appearance normal, both eyes and all related structures Neck Neck: Yes normal visual inspection Chest Chest palpation & inspection: normal inspection of the chest Resp Effort & Inspection: normal respiratory effort Auscultation: clear to auscultation bilaterally Cardio Jugular venous distension: no JVD Palpation: normal PMI Rate: regular rate Rhythm: regular rhythm Heart sounds: S1 normal heart sound present, S2 normal heart sound present, no click, no gallops, no murmurs and no rubs GI Inspection: Yes normal to inspection Palpation (GI): Soft to palpation Skin General skin exam: no rashes or lesions noted Neuro General: patient oriented x3 Extrem General: Yes normal to inspection Psych Appearance: grossly normal Results Reviewed Results Reviewed: Holter Conclusion: 1. Patient was monitored for total period of 13 days and 8 hours 2. Baseline was normal sinus rhythm with average heart of 61 beats per minute 3. Frequent sinus bradycardia noted with 55.5% of the time heart rate below 60 beats per minute 4. No significant pauses or ectopy burden noted 5. A total SVT events noted longest lasting 10 beats and the fastest at 152 beats per minute 6. Patient reported 5 events with symptoms of palpitations correlating with sinus tachycardia Echocardiogram Conclusions: - The left ventricular systolic function is normal. The calculated ejection fraction is 68% by biplane method. - No obvious valvular pathology seen on this study. Findings Left Ventricle Normal left ventricular cavity size. There is normal left ventricular wall thickness. The left ventricular systolic function is normal. The calculated ejection fraction is 68% by biplane method. There is no evidence of regional wall motion abnormalities. Diastolic function is normal for age. Assessment & Plan Assessment & Plan (1) Heart palpitations: Code(s): R00.2 - Palpitations Category: Medical Plan Ejection fraction 68% with no wall motion abnormality. Discussed in detail common triggers of palpitations such a PVCs, PACs, tachycardia, and SVT. Vagal maneuvers reviewed. Lowest heart rate 37 bpm during sleep hours. Avoidance of stimulants, good sleep hygiene, adequate hydration, and stress mitigation reviewed. ED care of symptoms or prolonged palpitations if needed. Call if increase in palpitations. Log symptoms to help correlate triggers. Coding Level of Care Code Est Pt Level 3 (97881) Diagnoses Heart palpitations R00.2
== END 2023-10-26 14:48 | disposition home or self-care (01) ==
PROVIDERS: PCP Registered Nurse; Referring Provider Registered Nurse; Visit Provider Nurse Practitioner
DX: R00.2 Palpitations (principal)
CPT/HCPCS: 99213

== ENCOUNTER → 2023-10-26 14:10 | Outpatient (BNVA) | payer OTHER, SELFPAY | PROVIDERS: PCP Registered Nurse; Visit Provider Nurse Practitioner | DX: R00.2 Palpitations (principal) | CPT/HCPCS: 99212 ==

== ENCOUNTER 2023-10-31 07:47 | Outpatient (REF) | payer OTHER, SELFPAY ==
[2023-11-01 05:53] LABS: CT PCR NOT DETECTED (Not Detect.); NG PCR NOT DETECTED (Not Detect.)
[2023-11-07 11:32] LABS: HPV 16 RNA NOT DETECTED (NOT DETECTED); HPV mRNA E6/E7 Detected (Not Detected)
== END 2023-10-31 07:48 | disposition home or self-care (01) ==
LOC: HO.LNP 07:47
PROVIDERS: PCP Registered Nurse; Visit Provider Obstetrics & Gynecology
DX: Z01.419 Encounter for gynecological examination (general) (routine) without abnormal findings (principal); Z11.51 Encounter for screening for human papillomavirus (HPV); N93.0 Postcoital and contact bleeding
CPT/HCPCS: 87491; 87591; 87624; 87625; 88175; 99396

== ENCOUNTER 2023-10-31 07:47 | Outpatient (AMB) | payer OTHER, SELFPAY ==
--- NOTE | 2023-10-31 07:50 | MHC.OFFVIS ---
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 Complaining of an episode of vaginal bleeding after intercourse 2 months ago with no associated symptoms. Last Pap/HPV was negative/HPV positive in 09/19, colpo/biopsy/ECC was PADMINI 1, this was preceded by a co testing in 06/21 will Pap smear was negative/HPV was positive, Last co testing was in 04/13 Last Mammogram was BI-RADS 2 in 03/22 Last Colonoscopy was done in 03/22, the recommendation was to repeat in 10 years [facility], [facility] Medical History Cervical high risk HPV (human papillomavirus) test positive Fibromyalgia Elevated cholesterol Karina's disease Non-toxic multinodular goiter Osteoarthritis of left hip Schatzki's ring Hiatal hernia Hx of migraines History of multinodular goiter IBS (irritable bowel syndrome) GERD (gastroesophageal reflux disease) Chronic pain syndrome Spondylosis, lumbar, with myelopathy Sacroiliitis Surgical History History of bilateral tubal ligation Hx of dilation and curettage Hx of arthroscopy of right knee History of esophagogastroduodenoscopy (EGD) Hx of colonoscopy History of cholecystectomy Family History Father Unknown family medical history Mother Arthritis Diverticulitis Gastritis Breast cancer Chronic asthma Adenomatous colon polyp HTN (hypertension) Maternal Grandmother Colon cancer Social History Household Members: None Housing: House Are you a primary urgent care to a significant other at home: Yes (mother) Do you presently have visiting nurse or other home services: No Alcohol intake: never Patient Tobacco Use Status: Never used Tobacco service: No Current occupational status: employed 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 History Menstrual Age of Menarche: 13 Total pregnancies: 3 Full term: 2 Number of Living Children: 2 Ab induced: 1 Date of last pap smear: 08/29/22 Date of Mammogram: 03/16/23 Review of Systems Const All systems reviewed & are unremarkable except as noted in HPI and below Card Reports as per HPI Resp Reports as per HPI GI Reports as per HPI and Reports no additional complaints Reports as per HPI Physical Exam Vital Signs: BMI result Body Mass Index 24.2 Const General: cooperative, healthy appearing and comfortable Chest Chest palpation & inspection: normal inspection of the chest and normal palpation of entire chest wall Breast/axilla inspection: normal inspection of the breasts and normal inspection of the axillae Breast/axilla palpation: normal palpation of the breasts, normal palpation of the axillae and no axillary lymphadenopathy Resp Effort & Inspection: normal respiratory effort Auscultation: clear to auscultation bilaterally Percussion: percussion normal Cardio Palpation: normal PMI Rate: regular rate Rhythm: regular rhythm Heart sounds: no murmurs and no rubs Peripheral pulses: Peripheral pulses 2+ throughout GI Inspection: Yes normal to inspection Palpation (GI): Soft to palpation, nontender, no guarding, not rigid and No hepatosplenomegaly present Percussion: Yes normal to percussion Auscultation: normal bowel sounds Rectal Exam - Female: deferred General: Yes bladder normal to palpation External Female Exam: No lesion Speculum Exam - Vagina: normal appearance of the vagina, normal palpation, normal vaginal discharge and not erythematous Speculum Exam - Cervix: normal appearance of the cervix and normal palpation Bimanual exam- vagina & uterus: normal bimanual exam, normal palpation, uterine size normal, bladder normal to palpation, consistency normal and normal palpation Bimanual Exam- Adnexa, other: normal adnexae, no masses and no tenderness Assessment & Plan Assessment & Plan (1) Well woman exam: Comment: Pap/HPV positive in 07/19 and in 09/19, colpo/biopsy/ECC PADMINI 1 Code(s): Z01.419 - Encounter for gynecological examination (general) (routine) without abnormal findings Category: Medical Plan: Co testing done. Counseled the patient about the recommended dietary allowance of 1200 mg of Calcium & 600 IU of vitamin D. Instructions given the patient to schedule her next screening Mammogram in 03/23. The patient was instructed to perform monthly self-breast exams and schedule annual exam in a year. All questions answered and the patient verbalized understanding. (2) Postcoital bleeding: Code(s): N93.0 - Postcoital and contact bleeding Category: Medical Plan: Co testing done, GC/CT collected, pelvic ultrasound ordered. Discussed with the patient the differential diagnosis of post coital/menopause bleeding with normal pelvic exam including but not limited to, endometrial hyperplasia, cancer, polyps and other causes; discussed with the patient that if the endometrial thickness is 4 mm or less the negative predictive value of endometrial pathology is 99%, otherwise If endometrial thickness is more than 4 mm will proceed with endometrial sampling versus hysteroscopy D&C polypectomy/ECC depending on the ultrasound findings. Instructed the patient to schedule an ultrasound follow-up appointment in 2 weeks for possible hysteroscopy/D&C/possible polypectomy /myomectomy with ECC or EMB/ECC. All questions answered, the patient verbalized understanding and agreed with the plan. Orders: Orders US pelvic and transvaginal Today N93.0 - Postcoital and contact bleeding Coding Level of Care Code Est Pt Prev Care 40-64y(87385) Diagnoses Well woman exam Z01.419 Postcoital bleeding N93.0
[2023-10-31 07:52] VITALS: BP 120/70; BMI 24.2
== END 2023-10-31 09:13 | disposition home or self-care (01) ==
PROVIDERS: PCP Registered Nurse; Visit Provider Obstetrics & Gynecology
DX: Z01.419 Encounter for gynecological examination (general) (routine) without abnormal findings (principal); N93.0 Postcoital and contact bleeding
CPT/HCPCS: 99396

== ENCOUNTER 2023-11-05 08:40 | Outpatient (AMB) | payer OTHER, SELFPAY ==
--- NOTE | 2023-11-05 08:44 | MHC.OFFVISWM ---
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 Allergies No Known Allergies [No Known Allergies*] Allergy (Verified 11/05/23 09:49) Medication List - Last Reconciled 11/05/23 by Dru Alvarado MD acetaminophen ER (Mapap Arthritis Pain) 1 tab PO Q8H PRN amitriptyline 5 mg PO BEDTIME PRN capsaicin 0.025% 0.025 appl topical BID [Centrum Silver Women 1 tab PO DAILY] diclofenac sodium 1% 1 g topical BID diphenhydramine HCl 25 mg PO BEDTIME PRN duloxetine 40 mg PO DAILY ibuprofen 800 mg PO Q8H PRN lidocaine 5% 5 appl topical Q OTHER DAY omega 7-xlr-ewn-fish oil 1,000 mg (120 mg-180 mg) (Fish Oil) 2 caps PO DAILY omeprazole 40 mg PO DAILY sennosides (Senna Laxative) 17.2 mg (2 x 8.6 mg) PO BEDTIME topiramate 50 mg PO DAILY HPI Comments Details: Referred by the GI service for a diaphragmatic hernia. Patient states that GERD is well controlled with the Omperazole as long as she avoid fried foods. However, she has been experiencing a progressively worsening dysphagia with solids and liquids the last year. She also reports a 25lbs weight loss which started before the dysphagia. Recent esophageal manometry and gastric emptying studies were normal [facility] Medical History (Updated 11/05/23 @ 09:53 by Dru Alvarado MD) Dysphagia Weight loss Cervical high risk HPV (human papillomavirus) test positive Fibromyalgia Elevated cholesterol Karina's disease Non-toxic multinodular goiter Osteoarthritis of left hip Schatzki's ring Hiatal hernia Hx of migraines History of multinodular goiter IBS (irritable bowel syndrome) GERD (gastroesophageal reflux disease) Chronic pain syndrome Spondylosis, lumbar, with myelopathy Sacroiliitis Surgical History History of bilateral tubal ligation Hx of dilation and curettage Hx of arthroscopy of right knee History of esophagogastroduodenoscopy (EGD) Hx of colonoscopy History of cholecystectomy Family History (Updated 11/05/23 @ 08:54 by Deanna Lawrence CMA) Father Unknown family medical history Mother Arthritis Diverticulitis Gastritis Breast cancer Chronic asthma Adenomatous colon polyp HTN (hypertension) Maternal Grandmother Colon cancer Daughter Hypothyroid Daughter Traveling blood clot in leg Obesity Prediabetes Social History (Updated 11/05/23 @ 08:53 by Deanna Lawrence CMA) Household Members: None Housing: House Are you a primary family day care worker to a significant other at home: Yes (mother) Do you presently have visiting nurse or other home services: No Alcohol intake: never Patient Tobacco Use Status: Former Tobacco user Years Smoked: quit 20 yrs ago service: No Current occupational status: employed 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 History Menstrual Age of Menarche: 13 Physical Exam Vital Signs: Last Vital Signs Temp 96.6 F L 11/05/23 08:58 Pulse 59 11/05/23 08:58 BP 112/56 L 11/05/23 08:58 Pulse Ox 97 11/05/23 08:58 Oxygen Delivery Method Room Air 11/05/23 08:58 BMI result Body Mass Index 23.9 GI Inspection: Yes normal to inspection (gynecoid body habitus) and Yes incision (well healed) Palpation (GI): Soft to palpation Extrem Right lower extremity: normal to inspection Left lower extremity: normal to inspection Assessment & Plan Assessment & Plan (1) Diaphragmatic hernia: Code(s): K44.9 - Diaphragmatic hernia without obstruction or gangrene Category: Medical Qualifiers: Obstruction and gangrene presence: with obstruction but without gangrene Qualified Code(s): K44.0 - Diaphragmatic hernia with obstruction, without gangrene Plan: 1. To be scheduled for EGD due to history of GERD, hiatal hernia and dysphagia. The possibility of biopsies was discussed. Patient needs to avoid use of NSAIDs and aspirin for 1 week prior to EGD. Risks of perforation and bleeding was discussed with the patient. This will be an outpatient procedure with IV sedation. 2. Also a CT chest/abdomen/pelvis will be ordered to assess any other cause of dysphagia Patient is in agreement with this plan Orders: Orders CT chest w IV con Today R13.10 - Dysphagia, unspecified CT abdomen pelvis w IV con Today K44.9 - Diaphragmatic hernia without obstruction or gangrene
[2023-11-05 08:58] VITALS: BP 112/56; PULSE 59; TEMP 35.9; O2SAT 97; BMI 23.9
== END 2023-11-05 09:55 | disposition home or self-care (01) ==
PROVIDERS: PCP Registered Nurse; Visit Provider Surgery
DX: K44.0 Diaphragmatic hernia with obstruction, without gangrene (principal)
CPT/HCPCS: 99204

== ENCOUNTER → 2023-11-05 08:40 | Outpatient (BNVA) | payer OTHER, SELFPAY | PROVIDERS: PCP Registered Nurse; Visit Provider Surgery | DX: K44.0 Diaphragmatic hernia with obstruction, without gangrene (principal) | CPT/HCPCS: 99202 ==

== ENCOUNTER 2023-11-06 10:41 | Day surgery (SDC) | payer OTHER, SELFPAY ==
[2023-11-06 10:49] VITALS: BMI 23.7
[2023-11-06 12:20] VITALS: BP 107/63; PULSE 47; RESP 16; TEMP 35.8; O2SAT 99
--- NOTE | 2023-11-06 13:12 | P.CONAN_ITS ---
HPI - Anesthesia Eval Consult details Narrative: upper endo PMFSH Active Problems Active Problems: All Active Problems Diaphragmatic hernia (Acute) Postcoital bleeding (Acute) Heart palpitations (Acute) Muscle spasms of neck (Acute) Left knee pain (Acute) Cervical spondylosis (Acute) Cervical radiculopathy (Acute) Achalasia (Acute) Rectal bleeding (Acute) RUQ abdominal pain (Acute) Dysplasia of cervix, low grade (PADMINI 1) (Acute) Osteoarthritis of right knee (Acute) Osteoarthritis of left knee (Acute) Weight loss (Acute) Myoma (Acute) Osteoarthritis of patellofemoral joint (Acute) Postmenopausal bleeding (Acute) Well woman exam (Acute) Migraines (Acute) Painful arc syndrome of right shoulder (Acute) Weight loss, non-intentional (Acute) Polyarthralgia (Acute) Constipation (Acute) Dysphagia (Acute) IBS (irritable bowel syndrome) (Acute) Neutropenia (Acute) Cervical high risk HPV (human papillomavirus) test positive (Acute) GERD (gastroesophageal reflux disease) (Acute) Karina's disease (Acute) Non-toxic multinodular goiter (Acute) Osteoarthritis of left hip (Acute) Chronic pain syndrome (Acute) Spondylosis, lumbar, with myelopathy (Acute) Sacroiliitis (Acute) Past Medical History Medical History Dysphagia Weight loss Cervical high risk HPV (human papillomavirus) test positive Fibromyalgia Elevated cholesterol Karina's disease Non-toxic multinodular goiter Osteoarthritis of left hip Schatzki's ring Hiatal hernia Hx of migraines History of multinodular goiter IBS (irritable bowel syndrome) GERD (gastroesophageal reflux disease) Chronic pain syndrome Spondylosis, lumbar, with myelopathy Sacroiliitis Family History Family History Father Unknown family medical history Mother Arthritis Diverticulitis Gastritis Breast cancer Chronic asthma Adenomatous colon polyp HTN (hypertension) Maternal Grandmother Colon cancer Daughter Hypothyroid Daughter Traveling blood clot in leg Obesity Prediabetes Family history of problems with anesthesia: Yes Surgical History Surgical History History of bilateral tubal ligation Hx of dilation and curettage Hx of arthroscopy of right knee History of esophagogastroduodenoscopy (EGD) Hx of colonoscopy History of cholecystectomy History of Problems with Anesthesia: No Social History Social History Household Members: None Housing: House Are you a primary daycare worker to a significant other at home: Yes (mother) Do you presently have visiting nurse or other home services: No Alcohol intake: never Patient Tobacco Use Status: Former Tobacco user Years Smoked: quit 20 yrs ago Use of substances other than those prescribed or required for medical reasons: No Are you DNR?: No Advance Directives: No Advance Directives Information Provided: Yes service: No Current occupational status: employed 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 Allergies Allergy/AdvReac Type Severity Reaction Status Date / Time No Known Allergies Allergy Verified 11/06/23 11:06 [No Known Allergies*] Home Medications ?Medication ?Instructions ?Recorded ?Confirmed ?Last Taken ?Type acetaminophen 650 mg 1 tab PO Q8H PRN Pain 04/12/20 11/05/23 Unknown History tablet,extended release (Mapap Arthritis Pain) diphenhydramine HCl 25 mg capsule 25 mg PO BEDTIME PRN Insomnia 11/03/20 11/06/23 11/05/23 History ibuprofen 800 mg tablet 800 mg PO Q8H PRN Pain 11/15/20 11/06/23 11/05/23 History capsaicin 0.025 % topical cream 0.025 appl topical BID 07/24/22 11/05/23 Unknown History diclofenac sodium 1 % topical gel 1 g topical BID 07/24/22 11/05/23 Unknown History lidocaine 5 % topical ointment 5 appl topical Q OTHER DAY 07/24/22 11/05/23 Unknown History amitriptyline 10 mg tablet 5 mg PO BEDTIME PRN Insomnia 08/28/22 11/06/23 11/05/23 History omega 3-oba-krz-fish oil 1,000 mg 2 cap PO DAILY 09/01/22 11/06/23 11/06/23 History (120 mg-180 mg) capsule (Fish Oil) duloxetine 40 mg capsule,delayed 40 mg PO DAILY 09/21/22 11/06/23 11/05/23 History release Centrum Silver Women 1 tab PO DAILY 11/28/22 11/06/23 11/06/23 History Exam Height,Weight and Vital Signs: Height 5 ft 3 in Weight 60.781 kg Last Vital Signs Temp 96.5 F L 11/06/23 12:20 Pulse 47 L 11/06/23 12:20 Resp 16 11/06/23 12:20 BP 107/63 11/06/23 12:20 Pulse Ox 99 11/06/23 12:20 O2 Del Method Room Air 11/06/23 12:20 Airway Mallampati Class: II TM Dist: >3cm Neck ROM: Full Heart: rrr Lungs: cta Assessment and Plan Assessment Anesthesia Assessment: Anesthesia Plan Discussed Final Anesthetic Review Family History of Problems with Anesthesia: Yes History of Problems with Anesthesia: No NPO: Yes ASA Class: III Final Preanesthetic Review: No Changes in Pt Med Stat, Meds/Allgs Chart Reviewed, Consent Obtained/Reviewed and Anes Risks/Benef Reviewed Patient Risk: Intermediate Procedure Risk: Low Anesthetic Plan Anesthetic Plan: MAC: Disposition: Standard PACU (unable to remove jewellry, risks discussed, accepted by patient.)
--- NOTE | 2023-11-06 14:13 | MHC.SHP ---
Pre-Procedural Eval Section A - 24 Hr Update-Section A only Date of Service: 11/06/23 The patient is an INPATIENT: No The patient has been examined within 24 hours of the surgical procedure. The History & Physical has been completed within 30 days and I have reviewed it.: Yes Section B - Complete if H&P > 30 days Chief Complaint: Gastro-esophageal reflux disease without esophagit Relevant Family History (Specify if Yes): No Relevant Social History: None Present Medications: None Medical History: No relevant PMH History of Previous Operations: No relevant previous surgery Allergies: Allergies Allergy/AdvReac Type Severity Reaction Status Date / Time No Known Allergies Allergy Verified 11/06/23 11:06 [No Known Allergies*] Review of Systems Sugical H&P ROS: Negative: Constitution, Cardiovascular, Respiratory, Neurological, Psychiatric, Hem-Onc, Allergic/Immunologic, Gastrointestinal, Genitourinary, Musculoskeletal, Integumentary, Endocrine and Eyes/Ears/Nose/Throat Exam Surgical H&P Exam: Normal: HEENT, Normal: Heart, Normal: Lungs, Normal: Extremities, Normal: Abdomen, Normal: Skin and Normal: Neurological Plan Diagnosis/Plan: Unchanged (Endoscopy to assess the diaphragmatic hernia. Risks of bleeding and perforation were discussed with the patient.) I have reviewed the history and physical and performed a pertinent physical examination on my patient. No changes have occurred unless specified. Time Spent With Patient Time: Total time managing care of this patient today ____ minutes.
--- NOTE | 2023-11-06 14:59 | P.BOP_ITS ---
Brief Operative Note Date of Service: 11/06/23 Pre-op diagnosis: GERD and diaphragmatic hernia Post-op diagnosis: same Procedure: PROCEDURE DATE: 11/06/2023 PREOPERATIVE DIAGNOSIS: GERD, dysphagia POSTOPERATIVE DIAGNOSIS: ?Same as above. 1) small hiatal hernia PROCEDURE: Akssitgu-praqlk-lbutoxdqjeau with biopsies Surgeon: ?James Alvarado M.D.. Ph.D. Pharmaceutical Analyst: None ? Anesthesia: IV sedation Estimated blood loss: ?Minimal FINDINGS AND PROCEDURE: ? OPERATIVE INDICATIONS: ?The patient is a 63 year old female who was referred for GERD and a diaphragmatic hernia. The patient has worsening dysphagia the last year. Based on this information I recommended an upper endoscopy to evaluate the patient's symptoms. Risks and complications of the surgery were discussed with the patient in advance particularly the possibility of perforation or bleeding that may require surgical intervention. The patient understood the risks and was in agreement with the plan. ? PROCEDURE: After informed consent was obtained by the patient, the patient was ?transferred to the Operating Room and was placed in the supine position.? After successful induction of IV sedation, a mouth block was inserted and the patient was placed in the left lateral decubitus position. An upper endoscopy was performed next, the oropharynx and esophagus appeared within the normal limits. There was a small 2-3cm hiatal hernia. The z-line was smooth. Two biopsies were obtained from the distal esophagus 2-3 cm proximal to the GE junction and two additional biopsies from the GE junction. The stomach was entered and it appeared to be of normal size. There was no gastritis. There was no stricture or ulcer. A biopsy was obtained from the gastric fundus and the antrum. No significant bleeding was noted from any of the biopsy sites. Scope was retroflexed and confirmed the presence of a small dipahragmatic hernia. The scope was then advanced into the duodenum which appeared to be normal as well. At that point the duodenum ?and the stomach were decompressed and the scope was withdrawn from the patient's mouth. The patient extubated and was transferred in stable condition to the Recovery Room for further care. I was present and performed all steps of the procedure. There were no residents to assist with this case. James Alvarado M.D., Ph.D. Surgeon: Dru Alvarado MD Anesthesia: MAC Was an Pharmaceutical Analyst used for this Procedure?: No Estimated blood loss (mL): 0 IV fluids (mL): 400 Urine output (mL): 0 (No Quintero to record output) Pathology: other (1) antrum x1, 2) fundus x1, 3) GE junction x2, 4) distal esophagus x2) Condition: stable Disposition: PACU
[2023-11-06 15:02] VITALS: BP 95/45; PULSE 82; RESP 12; TEMP 36.6; O2SAT 99
[2023-11-06 15:17] VITALS: BP 111/67; PULSE 61; RESP 16; TEMP 36.6; O2SAT 99
== END 2023-11-06 15:55 | disposition home or self-care (01) ==
PROVIDERS: PCP Registered Nurse; Visit Provider Surgery
PROC: 0DJ08ZZ Inspection of Upper Intestinal Tract, Via Natural or Artificial Opening Endoscopic (ICD-10-PCS; CPT 43235; principal; 2023-11-06 12:50)
DX: K21.9 Gastro-esophageal reflux disease without esophagitis (principal); K44.9 Diaphragmatic hernia without obstruction or gangrene; R13.10 Dysphagia, unspecified; R63.4 Abnormal weight loss; Z68.23 Body mass index [BMI] 23.0-23.9, adult; G89.4 Chronic pain syndrome; M79.7 Fibromyalgia; E78.00 Pure hypercholesterolemia, unspecified; E06.3 Autoimmune thyroiditis; K58.9 Irritable bowel syndrome, unspecified; Z79.899 Other long term (current) drug therapy; Z79.1 Long term (current) use of non-steroidal anti-inflammatories (NSAID); Z98.890 Other specified postprocedural states; Z87.891 Personal history of nicotine dependence
CPT/HCPCS: 43239; 88305; 88313; 88342; J1596; J2250; J2704

== ENCOUNTER → 2023-11-06 10:41 | Outpatient (BNV) | payer OTHER, SELFPAY | PROVIDERS: PCP Registered Nurse; Visit Provider Surgery | DX: K44.9 Diaphragmatic hernia without obstruction or gangrene (principal) | CPT/HCPCS: 43239 ==

== ENCOUNTER 2023-11-12 14:02 | Outpatient (REF) | payer OTHER, SELFPAY ==
--- NOTE | ~2023-11-12 | US_ITS ---
EXAMINATION: US PELVIS COMPLETE CLINICAL INFORMATION: Post coil and contacts bleeding; postmenopausal patient. COMPARISON: Pelvic ultrasound dated 09/16/2022. TECHNIQUE: Transabdominal an transvaginal imaging were performed. FINDINGS: The uterus is of normal size and echogenicity, measuring 7.2 x 5.0 x 5.2 cm. The uterus is anteverted and anteflexed. A regular homogeneous endometrium is identified measuring 0.4 cm. FIBROIDS: There are 4 fibroids seen. 1. Location: Rightward lower body, subserosal. Size: 1.5 x 1.3 x 1.5 cm. Prior: 1.9 x 1.7 x 1.9 cm. Fibroid characteristics: Heterogeneous echotexture. 2. Location: Rightward mid body, myometrial. Size: 1.2 x 1.1 x 1.3 cm. Prior: 1.8 x 1.7 x 1.7 cm. Fibroid characteristics: Heterogeneous echotexture. 3. Location: Upper anterior body, myometrial. Size: 2.4 x 2.3 x 2.5 cm. Prior: 2.6 x 2.2 x 3.1 cm. Fibroid characteristics: Heterogeneously hyperechoic. 4. Location: Fundus, myometrial. Size: 0.8 x 1.2 x 1.0 cm. Prior: 1.7 x 1.6 x 1.7 cm. Fibroid characteristics: Heterogeneously hypoechoic. Both ovaries are nonvisualized. There is no pelvic free fluid. No adnexal mass is seen. US/US pelvic and transvaginal IMPRESSION: 1. Multiple uterine fibroids are seen, as detailed. 2. The ovaries are nonvisualized.
== END 2023-11-12 14:03 | disposition home or self-care (01) ==
LOC: HO.US 14:02
PROVIDERS: PCP Registered Nurse; Visit Provider Obstetrics & Gynecology
DX: N93.0 Postcoital and contact bleeding (principal)
CPT/HCPCS: 76830; 76856

== ENCOUNTER 2023-12-17 13:46 | Outpatient (REF) | payer OTHER, SELFPAY | END 2023-12-17 13:47 | disposition home or self-care (01) | LOC: HO.LNP 13:46 | PROVIDERS: PCP Registered Nurse; Visit Provider Obstetrics & Gynecology | DX: B97.7 Papillomavirus as the cause of diseases classified elsewhere (principal); N93.0 Postcoital and contact bleeding; D21.9 Benign neoplasm of connective and other soft tissue, unspecified | CPT/HCPCS: 57454; 88305; 88342; 88360; 99212 ==

== ENCOUNTER 2023-12-17 13:46 | Outpatient (AMB) | payer OTHER, SELFPAY ==
[2023-12-17 14:13] VITALS: BP 100/60; BMI 23.8
--- NOTE | 2023-12-17 14:13 | A.OFFVIS_ITS ---
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 The uterus is anteverted and anteflexed. A regular homogeneous endometrium is identified measuring 0.4 cm. FIBROIDS: There are 4 fibroids seen. 1. Location: Rightward lower body, subserosal. Size: 1.5 x 1.3 x 1.5 cm. Prior: 1.9 x 1.7 x 1.9 cm. Fibroid characteristics: Heterogeneous echotexture. 2. Location: Rightward mid body, myometrial. Size: 1.2 x 1.1 x 1.3 cm. Prior: 1.8 x 1.7 x 1.7 cm. Fibroid characteristics: Heterogeneous echotexture. 3. Location: Upper anterior body, myometrial. Size: 2.4 x 2.3 x 2.5 cm. Prior: 2.6 x 2.2 x 3.1 cm. Fibroid characteristics: Heterogeneously hyperechoic. 4. Location: Fundus, myometrial. Size: 0.8 x 1.2 x 1.0 cm. Prior: 1.7 x 1.6 x 1.7 cm. Fibroid characteristics: Heterogeneously hypoechoic. Both ovaries are nonvisualized. There is no pelvic free fluid. No adnexal mass is seen. Pap smear was negative/HPV was positive [facility] Medical History Dysphagia Weight loss Cervical high risk HPV (human papillomavirus) test positive Fibromyalgia Elevated cholesterol Karina's disease Non-toxic multinodular goiter Osteoarthritis of left hip Schatzki's ring Hiatal hernia Hx of migraines History of multinodular goiter IBS (irritable bowel syndrome) GERD (gastroesophageal reflux disease) Chronic pain syndrome Spondylosis, lumbar, with myelopathy Sacroiliitis Surgical History History of bilateral tubal ligation Hx of dilation and curettage Hx of arthroscopy of right knee History of esophagogastroduodenoscopy (EGD) Hx of colonoscopy History of cholecystectomy Family History Father Unknown family medical history Mother Arthritis Diverticulitis Gastritis Breast cancer Chronic asthma Adenomatous colon polyp HTN (hypertension) Maternal Grandmother Colon cancer Daughter Hypothyroid Daughter Traveling blood clot in leg Obesity Prediabetes Social History Household Members: None Housing: House Are you a primary care aid to a significant other at home: Yes (mother) Do you presently have visiting nurse or other home services: No Alcohol intake: never Patient Tobacco Use Status: Former Tobacco user Years Smoked: quit 20 yrs ago service: No Current occupational status: employed 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 We thoroughly discussed the procedure itself, including its details, alternatives, and all associated risks. This included but not limited to the following complications such as bleeding, infection, and injury to the vagina, bladder, and vessels, as well as the potential need for transfusion with all its associated risks. Subsequently, the patient sign the consent. Pap smear result: Negative Pap/HPV positive Procedure: During the procedure, the following steps were performed: A speculum was inserted, and acetic acid was applied. Colposcopy was conducted, allowing visualization of the transformation zone. Acetowhite lesions were identified at the 1+ 6 o'clock position. Cervical biopsies were obtained from the 1+6 o'clock position, followed by an endocervical curettage (ECC). Vaginoscopy of the upper vagina revealed no evidence of aceto-white lesions. Hemostasis was achieved using Monsel solution, and the patient tolerated the procedure well. Post-Procedure Instructions: The patient was advised to promptly contact the office or the after hours answering service or go to the emergency room if experiencing a temperature exceeding 100.4?F, abdominal pain, nausea/vomiting, or bleeding. Additionally, the patient was instructed to abstain from vaginal intercourse and bathtub use. The patient confirmed understanding of these instructions. Discharge Instructions: The patient was instructed to schedule a follow-up appointment in 2 weeks for further evaluation and management. Please note that this note was generated using a voice recognition program, and errors may have occurred during intelligence operations specialist. [id number] of cervix including upper vagina with biopsy and ECC Procedure code (CPT) selection complete Assessment & Plan Assessment & Plan (1) Postcoital bleeding: Code(s): N93.0 - Postcoital and contact bleeding Category: Medical Plan: Discussed with the patient the results of the pelvic ultrasound showing an endometrial stripe thickness of 4 mm. Explained to the patient with an endometrial stripe of 4 mm &/or less, there is a high negative predictive value in detecting endometrial pathology including endometrial hyperplasia, polyps or malignancy. Therefore, there is no indication for endometrial sampling. Discussed with the patient the sensitivity, specificity, and positive and the negative predictive value of using ultrasound in detecting endometrial pathology. The patient was instructed to call if bleeding recurs, will proceed with endometrial sampling out endometrial pathology. All questions were answered and the patient verbalized understanding and agreed with the plan. (2) Myoma: Code(s): D21.9 - Benign neoplasm of connective and other soft tissue, unspecified Category: Medical Plan: Discussed with the patient the findings on pelvic ultrasound & the risk of myosarcoma; discussed with the patient the options of treatment including expectant management versus hysterectomy; the pros and cons, risks benefits of each approach were discussed with the patient including the fact that in cases of myosarcoma, surgical treatment can lead to early diagnosis and positively affects the prognosis; after further discussion, the patient decided to proceed with expectant management. Will repeat pelvic ultrasound periodically. Instructions given to patient to call in case any of the following occurs: pressure symptoms, abnormal uterine bleeding, pelvic pain; and to schedule a 12- months pelvic ultrasound and a follow-up appointment . All questions answered, the patient verbalized understanding and agreed with the plan . (3) HPV in female: Code(s): B97.7 - Papillomavirus as the cause of diseases classified elsewhere Category: Medical Plan: Discussed with the patient the result of her negative pap/HPV positive, its significance, risk of progression, persistence, and regression. the false positive/negative rate of a Pap smear as a screening test in detecting cervical cancer and the indication for a diagnostic test -colposcopy, biopsy, endocervica l curettage. The patient verbalized understanding and agreed with the plan, all questions answered. Colpo/biopsy/ECC done, see procedure note Orders: Orders AMB Colposcopy Today B97.7 - Papillomavirus as the cause of diseases classified elsewhere US pelvic and transvaginal 1 Year D21.9 - Benign neoplasm of connective and other soft tissue, unspecified Coding Level of Care Code Est Pt Level 3 (12050) Procedure Only Diagnoses Postcoital bleeding N93.0 Myoma D21.9 HPV in female B97.7 CPT Codes Colposcopy - CPT: 63642-[id number] of cervix including upper vagina with biopsy and ECC ([id number])
== END 2023-12-17 15:17 | disposition home or self-care (01) ==
LOC: HO.HWS 13:46
PROVIDERS: PCP Registered Nurse; Visit Provider Obstetrics & Gynecology
DX: R87.810 Cervical high risk human papillomavirus (HPV) DNA test positive (principal); N93.0 Postcoital and contact bleeding; D25.9 Leiomyoma of uterus, unspecified
CPT/HCPCS: 57454; 99213

== ENCOUNTER 2024-01-15 14:26 | Outpatient (AMB) | payer OTHER, SELFPAY ==
[2024-01-15 14:35] VITALS: BMI 23.8
--- NOTE | 2024-01-15 14:35 | A.OFFVIS_ITS ---
Vital Signs 01/15/24 14:35 Height 5 ft 3 in Weight 134 lb 7.712 oz BMI 23.8 Intake Visit Reasons: Colpo results Allergies No Known Allergies [No Known Allergies*] Allergy (Verified 12/17/23 14:18) HPI Comments Details: Presenting post colpo for follow-up. The patient is doing well with no complaints. The pathology showed the following: A. Endocervix, curettage: Fragments of atrophic squamous mucosa; no endocervical component seen; negative for squamous intraepithelial lesion. B. Cervix, 1 o'clock, biopsy: Acute cervicitis with atrophic and reactive epithelial changes; negative for squamous intraepithelial lesion. C. Cervix, 6'clock, biopsy: Acute cervicitis with atrophic and reactive epithelial changes; negative for squamous intraepithelial lesion PFSH Medical History Dysphagia Weight loss Cervical high risk HPV (human papillomavirus) test positive Fibromyalgia Elevated cholesterol Karina's disease Non-toxic multinodular goiter Osteoarthritis of left hip Schatzki's ring Hiatal hernia Hx of migraines History of multinodular goiter IBS (irritable bowel syndrome) GERD (gastroesophageal reflux disease) Chronic pain syndrome Spondylosis, lumbar, with myelopathy Sacroiliitis Surgical History History of bilateral tubal ligation Hx of dilation and curettage Hx of arthroscopy of right knee History of esophagogastroduodenoscopy (EGD) Hx of colonoscopy History of cholecystectomy Family History Father Unknown family medical history Mother Arthritis Diverticulitis Gastritis Breast cancer Chronic asthma Adenomatous colon polyp HTN (hypertension) Maternal Grandmother Colon cancer Daughter Hypothyroid Daughter Traveling blood clot in leg Obesity Prediabetes Social History Household Members: None Housing: House Are you a primary customer care voice consultant to a significant other at home: Yes (mother) Do you presently have visiting nurse or other home services: No Alcohol intake: never Patient Tobacco Use Status: Former Tobacco user Years Smoked: quit 20 yrs ago service: No Current occupational status: employed 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 History Menstrual Age of Menarche: 13 Review of Systems Const All systems reviewed & are unremarkable except as noted in HPI and below Reports as per HPI and Reports no additional complaints GI Reports no additional complaints Reports no additional complaints Physical Exam Vital Signs: BMI result Body Mass Index 23.8 Assessment & Plan Assessment & Plan (1) HPV in female: Code(s): B97.7 - Papillomavirus as the cause of diseases classified elsewhere Category: Medical Plan: Discussed with the patient the pathology results of the colposcopy biopsies & endocervical curettage ( negative). Discussed with the patient the sensitivity specificity, positive and negative predictive value in detecting cervical cancer in addition discussed the regression, persistence and progression rates. Recommended co-testing in 12 months, if cytology and or HPV are abnormal will proceed was colposcopy biopsy and endocervical curettage. Instructions given to the patient to schedule a co test appointment in 1 year. All questions answered the patient verbalized understanding. Coding Level of Care Code Est Pt Level 3 (93137) Diagnoses HPV in female B97.7
== END 2024-01-15 15:02 | disposition home or self-care (01) ==
LOC: HO.HWS 14:26
PROVIDERS: PCP Registered Nurse; Visit Provider Obstetrics & Gynecology
DX: R87.810 Cervical high risk human papillomavirus (HPV) DNA test positive (principal)
CPT/HCPCS: 99213

== ENCOUNTER → 2024-01-15 14:26 | Outpatient (BNVA) | payer OTHER, SELFPAY | PROVIDERS: PCP Registered Nurse; Visit Provider Obstetrics & Gynecology | DX: B97.7 Papillomavirus as the cause of diseases classified elsewhere (principal); Z71.2 Person consulting for explanation of examination or test findings | CPT/HCPCS: 99212 ==

== ENCOUNTER 2024-02-07 08:04 | Outpatient (AMB) | payer OTHER, SELFPAY ==
--- NOTE | 2024-02-07 08:06 | A.OFFVIS_ITS ---
Vital Signs 02/07/24 08:16 Height 5 ft 3 in Weight 139 lb BMI 24.6 BP 130/67 Blood Pressure Location Rt brachial Position Sitting Pulse 58 Pulse Source Pulse Oximeter Pulse Oximetry (%) 99 Oxygen Delivery Method Room Air Intake Visit Reasons: Chronic Neck Pain Intake Note: Pain today 12/07 Script Manager Required: No Accompanied by: Self / Same As Patient Allergies No Known Allergies [No Known Allergies*] Allergy (Verified 02/07/24 08:17) HPI Comments Details: Patient presents today for follow up for worsening chronic neck pain and left knee pain. She was last seen in our office in June with plans for left knee Durolane injection and diagnostic cervical medial branch blocks. Unfortunately, neck injections were denied as patient needed to complete physical therapy. She attended [facility] 08/29/23-09/20/23 and completed 5-6 sessions with minimal improvement in functioning but no pain relief. Patient continues to endorse neck pain with movements associated with neck stiffness and spasms and radicular symptoms into her left upper arm with numbness and tingling. Patient also reports left knee pain with walking, climbing stairs and cold weather. She avoids NSAIDs due to GI upset and has been taking Tylenol Arthritis and heat application with minimal and temporary relief. Denies any recent cough, cold, infection, fever, any significant changes in her medical history, medications or recent hospitalizations. PRIOR: Patient is a pleasant 63 years old female presents today for follow up neck and upper back pain. She was last seen in our office by Dr. Azul in 2020 for low back pain. Denies any recent trauma, injury or falls. Left hand dominant. Patient presents today with chronic neck pain for over 10 years and has been worsening for the past year. It radiates to her left arm laterally and posterior ly with intermittent pins and needles sensations in her LUE inner arm and hand. She also has pain between shoulder blades. Left arm pain increases with any overhead reaching activities. Pain is described as constant pulling, tingling, aching, hurting, heavy, tiring, tight and squeezing. She has long hair and plans to cut it short due to significant left arm and neck pain. Her left arm is easily fatigued with ROM and ADLs. She reports difficulty washing or brushing her hair, bathing, dressing or providing [employer] care for her elderly mom. Reports history of mild carpal tunnel syndrome on right side per EMG in the past. Pain affects her daily activities, sleep, social interactions and quality of life. Tylenol, lidocaine patches, diclofenac gel, ice/heat therapy, baclofen, physical therapy with continued symptoms. Denies any fever, chills, weight loss, dizziness, chest pain, shortness of breaths, imbalance issues, bladder or bowel dysfunction or saddle anesthesia. Patient also reports bilateral knee pain, left knee worse than right. Reports previous right knee arthroscopy in the past s/p mechanical fall. She received cortisone injections through Orthopedic office in 2022 and 2021 with mild relief. She is interested to trial a gel injection. Tylenol and NSAIDs have been ineffective to her. PRIOR 03/07/2021 Dr. Azul: Ms. Flynn is here for the follow-up after prolonged period of absence in my office. She reports pain in the back of getting worse. She was discussed in the past possibility to treat her pain with spinal cord stimulator. One time ago with Sue she was sent to psychological evaluation to get ready for spinal cord stimulation. However that was more than 1 year ago and we have to send her for another appointment and repeat psychological evaluation. Left groin pain: Left intra-articular hip injection was performed for her on 08/10/2020. She reported originally 100% pain relief for 1st 10-15 days, after that pain started to come back gradually. We can consider this groin pain a result of hip pathology. On physical exam there is pain exacerbation with external rotation of the left hip. Her primary care physician sent appropriately her for hip x-ray. In the past I offered her chronic opioid therapy with the explanation of the risks and minimal benefits on the longer run. She is very conscientious of for her possibility of getting dependent in even later on addicted to opioids. She is negative and rightfully so for chronic opioid therapy. She is under our observation in this office for past 3 years. She received multiple injections with no significant success to alleviate her pain. 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 She is currently working part-time and reports that her pain is severely interfering in her ability of performing her job duties.. She denies any trauma or surgery. She denies any radiation of pain down legs. [facility] Medical History Dysphagia Weight loss Cervical high risk HPV (human papillomavirus) test positive Fibromyalgia Elevated cholesterol Karina's disease Non-toxic multinodular goiter Osteoarthritis of left hip Schatzki's ring Hiatal hernia Hx of migraines History of multinodular goiter IBS (irritable bowel syndrome) GERD (gastroesophageal reflux disease) Chronic pain syndrome Spondylosis, lumbar, with myelopathy Sacroiliitis Surgical History History of bilateral tubal ligation Hx of dilation and curettage Hx of arthroscopy of right knee History of esophagogastroduodenoscopy (EGD) Hx of colonoscopy History of cholecystectomy Family History Father Unknown family medical history Mother Arthritis Diverticulitis Gastritis Breast cancer Chronic asthma Adenomatous colon polyp HTN (hypertension) Maternal Grandmother Colon cancer Daughter Hypothyroid Daughter Traveling blood clot in leg Obesity Prediabetes Social History Household Members: None Housing: House Are you a primary overnight caregiver to a significant other at home: Yes (mother) Do you presently have visiting nurse or other home services: No Alcohol intake: never Patient Tobacco Use Status: Former Tobacco user Years Smoked: quit 20 yrs ago service: No Current occupational status: employed Current occupation: [employer]/Lt handed Female 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 History Menstrual Age of Menarche: 13 Review of Systems Const All systems reviewed & are unremarkable except as noted in HPI and below Physical Exam Vital Signs: Last Vital Signs Pulse 58 02/07/24 08:16 BP 130/67 02/07/24 08:16 Pulse Ox 99 02/07/24 08:16 Oxygen Delivery Method Room Air 02/07/24 08:16 BMI result Body Mass Index 24.6 General: Appears afebrile. Alert and oriented. Mood and affect appropriate. Follows and participates in conversation appropriately. Respiratory effort is unlabored. No cough. Able to transition from sit to stand unassisted. Ambulates with bilaterally normal heel strike and toe off. Neck Other: Patient with decreased cervical ROM in all planes/especially with lateral rotations, worse on the left. Reports increased pain with cervical extension and flexion, worse with extension. Spurling compression test positive. Pain is unchanged by Spurling maneuver with retraction. Elvey's tension test positive on the left, with radiation of pain from neck to wrist and fingers. Lhermitte's test was negative. DTR intact, +1 left and +2 right. Patient demonstrated 5/5 right and 4/5 left motor strength of bilateral upper extremities. 2 + radial pulses. Significant tightness throughout left upper trapezius as well as TTP throughout bilateral upper trapezius muscles. No paravertebral tenderness over facet joints bilaterally. Neck: Yes full ROM, Yes no lymphadenopathy, No anterior neck swelling, Yes no JVD and No prominent dorsocervical fat pad Back/Spine/Pelvis Cervical Spine: No Lhermitte's sign positive, loss of normal cervical lordosis, cervical muscular tenderness, pain with cervical ROM, cervical spasm (left>ri ght), No Cervical spine tenderness and No step off deformity Thoracic/Lumbar Spine: thoracic and lumbar spine normal to inspection, Lasegue's sign negative, straight leg raise negative bilaterally, pain with thoraco-lumbar ROM, No thoracic spinal tenderness and No lumbar spinal tenderness Extrem General: Yes capillary refill normal, Yes no clubbing, cyanosis or edema and Yes no calf tenderness Left lower extremity: knee (Limited ROM due to pain) Details: normal to inspection, tenderness Location: of the medial joint line and of the lateral joint line and crepitus; no swelling, no ecchymosis and no unusual warmth Results Reviewed Results Reviewed: MR CERVICAL SPINE WITHOUT CONTRAST 06/14/23 CLINICAL INFORMATION: Chronic neck pain with worsening radicular symptoms. COMPARISON: Cervical spine MRI 02/18/2016. FINDINGS: Straightening of the cervical lordosis. The vertebral body heights are maintained. There is moderate to severe disc volume loss at C4-C5 and C5-C6, progressed. Moderate disc volume loss at C3-C4 again noted. There are Modic type I endplate signal changes at C4-C5 and C5-C6. There is no additional bone marrow edema. There are no acute fractures. Craniocervical junction is unremarkable. Partially imaged intracranial compartment is unremarkable. Cervical arterial flow voids are maintained. Partially imaged multinodular thyroid gland is again noted which has been recently evaluated with thyroid ultrasound. C2-C3: A shallow disc protrusion mildly indents the ventral thecal sac. There is no foraminal stenosis. Findings are unchanged. C3-C4: Disc osteophyte mildly indents the ventral thecal sac. There is bilateral facet arthropathy. No significant central canal stenosis and no foraminal stenosis. C4-C5: A small central disc protrusion mildly indents the ventral thecal sac. Uncovertebral joint spurring and facet arthropathy result in worsening mild to moderate left-sided foraminal stenosis. C5-C6: Uncovertebral joint spurring and facet arthropathy result in worsening mild to moderate right-sided foraminal stenosis. No central canal and no left foraminal stenosis. Bilateral facet arthropathy. C6-C7: Slight annular disc bulge. Left greater then right facet arthropathy. No central canal stenosis. Mild foraminal encroachment bilaterally. C7-T1: Disc contour is normal. No central canal stenosis and no foraminal stenosis. IMPRESSION: - Multilevel cervical spondylosis. Spondylitic changes result in progressive mild to moderate left C4-C5 and progressive mild to moderate right C5-C6 foraminal stenosis. There is no severe central canal stenosis within the cervical spine. - Partially imaged multinodular thyroid gland is again noted which has been recently evaluated with thyroid ultrasound. XR knee LT 2V 07/24/22 IMPRESSION: 1. There is minimal osteoarthritic change of the medial joint space compartments of the bilateral knees. 2. No fracture, dislocation or joint effusion is seen. Assessment & Plan Assessment & Plan (1) Cervical radiculopathy: Code(s): M54.12 - Radiculopathy, cervical region Category: Medical (2) Chronic pain syndrome: Code(s): G89.4 - Chronic pain syndrome Category: Medical (3) Cervical spondylosis: Code(s): M47.812 - Spondylosis without myelopathy or radiculopathy, cervical region Category: Medical (4) Left knee pain: Code(s): M25.562 - Pain in left knee Category: Medical (5) Muscle spasms of neck: Code(s): M62.838 - Other muscle spasm Category: Medical Plan Patient completed PT without any significant improvement in her ADLs, functioning or sleep. We reviewed interventional treatments for axial and radicular neck pain and left knee. Will proceed with Bilateral Diagnostic C4-C5-C6 MBB with local and fluoroscopy for potential peripheral nerve stimulation or RFA ablation, as well as therapeutic injections. Informational pamphlets provided. For left knee pain due to OA will proceed with left knee Durolane injection with local and US guidance. Expectations, risks and benefits were reviewed for both procedures. Patient is aware she will be contacted to schedule these procedures. All questions were answered and the patient is in agreement of plan. Follow-up after injections and sooner as needed. Coding Level of Care Code Est Pt Level 4 (20077) Complex EM visit Add On G2211 Diagnoses Cervical radiculopathy M54.12 Chronic pain syndrome G89.4 Cervical spondylosis M47.812 Left knee pain M25.562 Muscle spasms of neck M62.838
[2024-02-07 08:16] VITALS: BP 130/67; PULSE 58; O2SAT 99; BMI 24.6
== END 2024-02-07 08:57 | disposition home or self-care (01) ==
PROVIDERS: PCP Registered Nurse; Visit Provider Nurse Practitioner Family
DX: M54.12 Radiculopathy, cervical region (principal); G89.4 Chronic pain syndrome; M47.812 Spondylosis without myelopathy or radiculopathy, cervical region; M25.562 Pain in left knee; M62.838 Other muscle spasm
CPT/HCPCS: 99214; G2211

== ENCOUNTER → 2024-02-07 08:04 | Outpatient (BNVA) | payer OTHER, SELFPAY | PROVIDERS: PCP Registered Nurse; Visit Provider Nurse Practitioner Family | DX: M47.22 Other spondylosis with radiculopathy, cervical region (principal); M25.562 Pain in left knee; M62.838 Other muscle spasm; G89.4 Chronic pain syndrome | CPT/HCPCS: 99212 ==

== ENCOUNTER 2024-02-25 08:04 | Outpatient (AMB) | payer OTHER, SELFPAY ==
--- NOTE | 2024-02-25 09:51 | A.OFFVIS_ITS ---
VS Expanded 02/25/24 09:53 Height 5 ft 3 in Weight 134 lb BMI 23.7 Intake Visit Reasons: TV Pre Op Hiatal Hernia 03/04/24 *SEE COMMENTS* Allergies No Known Allergies [No Known Allergies*] Allergy (Verified 02/25/24 09:51) Medication List - Last Reconciled 02/25/24 by Dru Alvarado MD acetaminophen ER (Mapap Arthritis Pain) 1 tab PO Q8H PRN amitriptyline 5 mg PO BEDTIME PRN capsaicin 0.025% 0.025 appl topical BID [Centrum Silver Women 1 tab PO DAILY] diclofenac sodium 1% 1 g topical BID diphenhydramine HCl 25 mg PO BEDTIME PRN duloxetine 40 mg PO DAILY ibuprofen 800 mg PO Q8H PRN lidocaine 5% 5 appl topical Q OTHER DAY omega 6-zzf-awc-fish oil 1,000 mg (120 mg-180 mg) (Fish Oil) 2 caps PO DAILY omeprazole 40 mg PO DAILY ondansetron 4 mg PO Q12H pantoprazole 40 mg PO DAILY polyethylene glycol 3350 17 grams PO DAILY sennosides (Senna Laxative) 17.2 mg (2 x 8.6 mg) PO BEDTIME sucralfate 10 mL PO BID topiramate 50 mg PO DAILY HPI HPI TV Pre Op Hiatal Hernia 03/04/24 *SEE COMMENTS*: Details: Start time: 9.37am, End time: 10.07am ?I spent 25 minutes speaking with the patient on the phone plus an additional 5 minutes reviewing and updating records for a total of 30 minutes HPI Comments Details: She is here for her preop appointment for lap diaphragmatic hernia repair [facility] Medical History Dysphagia Weight loss Cervical high risk HPV (human papillomavirus) test positive Fibromyalgia Elevated cholesterol Karina's disease Non-toxic multinodular goiter Osteoarthritis of left hip Schatzki's ring Hiatal hernia Hx of migraines History of multinodular goiter IBS (irritable bowel syndrome) GERD (gastroesophageal reflux disease) Chronic pain syndrome Spondylosis, lumbar, with myelopathy Sacroiliitis Surgical History History of bilateral tubal ligation Hx of dilation and curettage Hx of arthroscopy of right knee History of esophagogastroduodenoscopy (EGD) Hx of colonoscopy History of cholecystectomy Family History Father Unknown family medical history Mother Arthritis Diverticulitis Gastritis Breast cancer Chronic asthma Adenomatous colon polyp HTN (hypertension) Maternal Grandmother Colon cancer Daughter Hypothyroid Daughter Traveling blood clot in leg Obesity Prediabetes Social History Household Members: None Housing: House Are you a primary adult caregiver to a significant other at home: Yes (mother) Do you presently have visiting nurse or other home services: No Alcohol intake: never Patient Tobacco Use Status: Former Tobacco user Years Smoked: quit 20 yrs ago service: No Current occupational status: employed 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 Female 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 History Menstrual Age of Menarche: 13 Telehealth Telehealth Telehealth Platform: Telephone Location of provider rendering services: practice address Location of patient: address on file Patient Identification confirmed using: Name, : Yes Telehealth method: voice only Patient verbally consented to treatment: Yes Patient verbally consented to billing insurance company: Yes Patient informed of any privacy concerns related to visit: Yes Minutes spent on Phone/Video with Pt.: 30 Assessment & Plan Assessment & Plan (1) Diaphragmatic hernia: Code(s): K44.9 - Diaphragmatic hernia without obstruction or gangrene Category: Medical Qualifiers: Obstruction and gangrene presence: with obstruction but without gangrene Qualified Code(s): K44.0 - Diaphragmatic hernia with obstruction, without gangrene Plan: 1. We discussed the potential etiology of the hernia. We discussed the details of the diaphragmatic hernia repair and the potential technical challenges such as being able to achieve enough mobilization of the esophagus back in the abdomen and being able to close the diaphragmatic muscle (crura) primarily with sutures. We also discussed the possibility of using a biologic mesh to close the hernia defect if the crura cannot be adequately re-approximated primarily with sutures. We also discussed the option of doing a gastropexy or a fundoplication to prevent postoperative reflux and prevent hernia recurrence. As we discussed, I favor the gastropexy as the fundoplication can cause several distrurbing symptoms such as gas-bloating, flatulence, inability to burp which can be bothersome to patients. Also we discussed the complexity of a potential hernia recurrence in association with a hernia recurrence. Risks of bleeding, pneumothorax, infection, dysphagia, GERD, pneumonia were discussed. She was in agreement not to have a fundoplication. 2. Preop prescriptions were provided and explained the purpose of each one. Need to be purchased preop. Start Pantoprazole now as you get it from the pharmacy, 1 pill per day. Sucralfate and Zofran are for after surgery as needed. 3. Bowel prep: please do 7 packets ?of Miralax mixing each one with a an 8oz glass of water, crystal light, gatorade zero, or propel ?on 03/02/24 and the same amount on 03/03/24. The Miralax you begin with one packet at a time in 8oz water or crystal light, gatorade zero, or propel ?as early in the day as you can and you do them back to back until you finish them. Continue the protein shakes during ?the bowel prep. 4. Needs to purchase 1oz medicine cups . 5. Needs to purchase Children's liquid Tylenol for postop pain control. 6. She needs to stop as of today 02/25/24 the Tylenol arthritis and Ibuprofen. Avoid aspirin, motrin, Advil, Aleve, Ibuprofen, Naproxyn. Tylenol is OK. 7. She needs to purchase the Celebrate 4:1 protein shakes or the Celebrate multivitamins from the hospital's gift shop. 8. Will do basic preop blood work-up any day between Sunday02/26/24 and Sunday02/29/24 fasting for 12 hours and is scheduled to see the Anesthesiologist prior to the day of surgery. 9. Importance of adherence to postop folllow-up and recommendations was underscored and she understands that. 10. Stop food and bars as of 02/27/24 and continue with 4 Celebrate REBUILD protein shakes (ONE scoop EACH in 8oz almond milk) at 8am-10am, 11am- 1pm, 2pm-4pm, 5pm-7pm and one more Celebrate REBUILD protein shake with TWO scoops in 8oz of almond milk at 8pm-10pm 11. No soups, broths or V8 12. The patient's?medical?history has been reviewed and they are considered low risk for post op DVT and therefore DVT prophylaxis is not considered necessary. Travel after surgery was reviewed. The patient has not disclosed any travel plans during the first 30 days after surgery and they have been advised that within the first 30 days after surgery any bus, plane, train or car travel over 2 hours in duration is contraindicated due to the possibility of developing blood clots from immobility. Any travel, needs to include periods of ambulation of 10 minutes in duration every 2 hours.? Patient was instructed to discuss any plans for travel during this period with their bariatric surgeon.? 13. Please take at the day of surgery the following medications: NONE 14. Stop any control pills and don't use them for one month after surgery 15. Absolutely no smoking or vaping, or marijuana until the surgery and for at least the first 4 weeks. Only nicotine patches are allowed. 16. Avoid any steroids by mouth for any reason. Let me know if someone prescribes them to you. Orders: Orders Hemoglobin A1c Today Z01.818 - Encounter for other preprocedural examination TSH reflex Free T4 Today Z.818 - Encounter for other preprocedural examination Vitamin B1 Today Z.818 - Encounter for other preprocedural examination Type and Screen Today Z.818 - Encounter for other preprocedural examination Vitamin B12 Today Z.818 - Encounter for other preprocedural examination Partial Thromboplastin Time Today Z.818 - Encounter for other preprocedural examination Vitamin D 25-OH Total Today Z.818 - Encounter for other preprocedural examination Insulin Today Z.818 - Encounter for other preprocedural examination Comprehensive Met. Panel Today Z.818 - Encounter for other preprocedural examination Vitamin A Today Z.818 - Encounter for other preprocedural examination Prothrombin Time INR Today Z.818 - Encounter for other preprocedural examination Lipid Panel Today Z01.818 - Encounter for other preprocedural examination C Reactive Protein Today Z01.818 - Encounter for other preprocedural examination Complete Blood Count Auto Diff Today Z01.818 - Encounter for other preprocedural examination Ferritin Today Z01.818 - Encounter for other preprocedural examination Zinc Today Z01.818 - Encounter for other preprocedural examination IRON PROFILE Today Z01.818 - Encounter for other preprocedural examination Medications: New sucralfate 10 mL PO BID 600 mL 2RF K21.9 - Gastro-esophageal reflux disease without esophagitis polyethylene glycol 3350 Mix each measuring cup with 8oz of water, Crystal light, or Gatorade zero, or Propel and do 7 measuring cups on 03/02/24 and another 7 measuring cups on 03/03/24 17 grams PO DAILY 238 grams 0RF Z01.818 - Encounter for other preprocedural examination pantoprazole 40 mg PO DAILY 90 tabs 0RF K21.9 - Gastro-esophageal reflux disease without esophagitis ondansetron Only take one every 12 hours as needed if you have nausea 4 mg PO Q12H 20 tabs 0RF nausea and vomiting R11.0 - Nausea
[2024-02-25 09:53] VITALS: BMI 23.7
== END 2024-02-25 10:08 | disposition home or self-care (01) ==
LOC: HO.HBS 08:04
PROVIDERS: PCP Registered Nurse; Visit Provider Surgery
DX: K44.0 Diaphragmatic hernia with obstruction, without gangrene (principal)
CPT/HCPCS: 99214

== ENCOUNTER → 2024-02-25 08:04 | Outpatient (BNVA) | payer OTHER, SELFPAY | PROVIDERS: PCP Registered Nurse; Visit Provider Surgery ==

== ENCOUNTER 2024-02-28 13:00 | Outpatient (AMB) | payer OTHER, SELFPAY ==
--- NOTE | 2024-02-28 13:03 | MHC.OFFVIS ---
Vital Signs 02/28/24 13:14 02/28/24 13:55 02/28/24 13:55 Height 5 ft 3 in Weight 136 lb 2 oz BMI 24.1 BP 111/74 56/34 L 95/34 L Blood Pressure Location Lt brachial Rt radial Lt brachial Position Sitting Sitting Sitting Respiration 16 Pulse 72 Pulse Source Pulse Oximeter Pulse Oximetry (%) 96 Oxygen Delivery Method Room Air Comment After injection 15 min Intake Visit Reasons: LEFT KNEE INTRA-ARTICULAR EUFLEXXA INJECTION Intake Note: Patient comes in for knee injection. Reports pain 08/07. Allergies No Known Allergies [No Known Allergies*] Allergy (Verified 02/28/24 13:13) HPI Comments Details: Adela is here in my office she came today for intra-articular left knee hyaluronic acid preparation injection Euflexxa, when she came she has started to insist that her pain is right knee is much stronger than in the left. The decision was made to perform left knee Euflexxa injection. See description of the procedure as below. The patient tolerated the procedure well. She was observed after injection for the side effects. PRIOR: Patient is a pleasant 63 years old female presents today for follow up neck and upper back pain. She was last seen in our office by Dr. Azul in 2020 for low back pain. Denies any recent trauma, injury or falls. Left hand dominant. Patient presents today with chronic neck pain for over 10 years and has been worsening for the past year. It radiates to her left arm laterally and posteriorly with intermittent pins and needles sensations in her LUE inner arm and hand. She also has pain between shoulder blades. Left arm pain increases with any overhead reaching activities. Pain is described as constant pulling, tingling, aching, hurting, heavy, tiring, tight and squeezing. She has long hair and plans to cut it short due to significant left arm and neck pain. Her left arm is easily fatigued with ROM and ADLs. 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 Reports history of mild carpal tunnel syndrome on right side per EMG in the past. Pain affects her daily activities, sleep, social interactions and quality of life. Tylenol, lidocaine patches, diclofenac gel, ice/heat therapy, baclofen, physical therapy with continued symptoms. Denies any fever, chills, weight loss, dizziness, chest pain, shortness of breaths, imbalance issues, bladder or bowel dysfunction or saddle anesthesia. Patient also reports bilateral knee pain, left knee worse than right. Reports previous right knee arthroscopy in the past s/p mechanical fall. She received cortisone injections through Orthopedic office in 2022 and 2021 with mild relief. She is interested to trial a gel injection. Tylenol and NSAIDs have been ineffective to her. PRIOR 03/07/2021 Dr. Azul: Ms. Flynn is here for the follow-up after prolonged period of absence in my office. She reports pain in the back of getting worse. She was discussed in the past possibility to treat her pain with spinal cord stimulator. One time ago with Sue she was sent to psychological evaluation to get ready for spinal cord stimulation. However that was more than 1 year ago and we have to send her for another appointment and repeat psychological evaluation. Left groin pain: Left intra-articular hip injection was performed for her on 08/10/2020. She reported originally 100% pain relief for 1st 10-15 days, after that pain started to come back gradually. We can consider this groin pain a result of hip pathology. On physical exam there is pain exacerbation with external rotation of the left hip. Her primary care physician sent appropriately her for hip x-ray. In the past I offered her chronic opioid therapy with the explanation of the risks and minimal benefits on the longer run. She is very conscientious of for her possibility of getting dependent in even later on addicted to opioids. She is negative and rightfully so for chronic opioid therapy. She is under our observation in this office for past 3 years. She received multiple injections with no significant success to alleviate her pain. 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 She is currently working part-time and reports that her pain is severely interfering in her ability of performing her job duties.. She denies any trauma or surgery. She denies any radiation of pain down legs. [facility] Medical History Dysphagia Weight loss Cervical high risk HPV (human papillomavirus) test positive Fibromyalgia Elevated cholesterol Karina's disease Non-toxic multinodular goiter Osteoarthritis of left hip Schatzki's ring Hiatal hernia Hx of migraines History of multinodular goiter IBS (irritable bowel syndrome) GERD (gastroesophageal reflux disease) Chronic pain syndrome Spondylosis, lumbar, with myelopathy Sacroiliitis Surgical History History of bilateral tubal ligation Hx of dilation and curettage Hx of arthroscopy of right knee History of esophagogastroduodenoscopy (EGD) Hx of colonoscopy History of cholecystectomy Family History Father Unknown family medical history Mother Arthritis Diverticulitis Gastritis Breast cancer Chronic asthma Adenomatous colon polyp HTN (hypertension) Maternal Grandmother Colon cancer Daughter Hypothyroid Daughter Traveling blood clot in leg Obesity Prediabetes Social History Household Members: None Housing: House Are you a primary floor care technician to a significant other at home: Yes (mother) Do you presently have visiting nurse or other home services: No Alcohol intake: never Patient Tobacco Use Status: Former Tobacco user Years Smoked: quit 20 yrs ago service: No Current occupational status: employed 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 Alert and oriented. Mood and affect appropriate. Follows and participates in conversation appropriately. Respiratory effort is unlabored. No cough. Able to transition from sit to stand unassisted. Ambulates with bilaterally normal heel strike and toe off. Neck Other: Patient with decreased cervical ROM in all planes/especially with lateral rotations, worse on the left. Reports increased pain with cervical extension and flexion, worse with extension. Spurling compression test positive. Pain is unchanged by Spurling maneuver with retraction. Elvey's tension test positive on the left, with radiation of pain from neck to wrist and fingers. Lhermitte's test was negative. DTR intact, +1 left and +2 right. Patient demonstrated 5/5 right and 4/5 left motor strength of bilateral upper extremities. 2 + radial pulses. Significant tightness throughout left upper trapezius as well as TTP throughout bilateral upper trapezius muscles. No paravertebral tenderness over facet joints bilaterally. Neck: Yes full ROM, Yes no lymphadenopathy, No anterior neck swelling, Yes no JVD and No prominent dorsocervical fat pad Back/Spine/Pelvis Cervical Spine: No Lhermitte's sign positive, loss of normal cervical lordosis, cervical muscular tenderness, pain with cervical ROM, cervical spasm (left>right), No Cervical spine tenderness and No step off deformity Thoracic/Lumbar Spine: thoracic and lumbar spine normal to inspection, Lasegue's sign negative, straight leg raise negative bilaterally, pain with thoraco-lumbar ROM, No thoracic spinal tenderness and No lumbar spinal tenderness Extrem General: Yes capillary refill normal, Yes no clubbing, cyanosis or edema and Yes no calf tenderness Left lower extremity: knee (Limited ROM due to pain) Details: normal to inspection, tenderness Location: of the medial joint line and of the lateral joint line and crepitus; no swelling, no ecchymosis and no unusual warmth Office Procedures AMB Joint Injection/Aspiration Joint Injection/Aspiration Primary Site: left knee Coding 57603 - Large joint Procedure code (CPT) selection complete Office Meds Euflexxa 10 mg/mL (mw 2.4-3.6 million) intra-articular syringe Performing Provider: Carlo Azul MD Performing Location: [facility] [place] [facility] Administered by: Carlo Azul MD on 02/28/24 13:06 Dose Route Admin Location Dispensed Lot Number Expiration Date [facility] Database Programmer [employer]st 20 mg intra-articular 2 mL [id number] 03/20/25 [facility] Comments: Informed consent was explained to the patient risks and benefits explained. The patient has signed a consent. The order was issued for the left side injection however the patient insisted that her pain in the right side is stronger so decision was made to perform the right-sided injection. The patient was positioned sitting on the examination bed and anterior lateral surface of the right knee was prepped with ChloraPrep and strict sterile condition using 1-1/2 inch needle connected to refilled intra-articular syringe the insertion of the needle was performed in the oblique lateral to medial direction into retropatellar space. Aspiration was negative and the injection of the 2 mL of Euflexxa containing 20 mg of the preparation was performed. The patient tolerated procedure well. The needle was withdrawn from a minimal bleeding was observed, pressure was held and bleeding stopped. sterile Band-Aid was applied. The patient stayed in the room after the injection and she exhibited the signs of vasovagal response to the injection. She became dizzy, her skin became clammy and sweaty, her heart rate dropped to 40s and blood pressure decreased to 56/34 mm Hg, the patient was repositioned flat and her legs were elevated we wanted to give her something to drink but she told us that she is getting ready for hiatal hernia surgery and can not take anything but water and her protein shakes. We insisted on her drinking her water and observe her for 20 minutes. The blood pressure went up to 95/54 patient became more stable because of her condition in preparation for the surgery I offered her to go to the emergency room to get evaluated and maybe receive IV fluids the patient adamantly refused. Assessment & Plan Assessment & Plan (1) Left knee pain: Code(s): M25.562 - Pain in left knee Category: Medical (2) Osteoarthritis of left knee: Code(s): M17.12 - Unilateral primary osteoarthritis, left knee Category: Medical (3) Right knee pain: Code(s): M25.561 - Pain in right knee Category: Medical (4) Arthritis of right knee: Code(s): M17.11 - Unilateral primary osteoarthritis, right knee Category: Medical Plan Euflexxa injection is as above. The patient responded with vasovagal reaction to the injection. The description as above. We offered her to go for the emergency room for further observation however she adamantly refused. She insisted on going home. We will be observing the patient for the results of the injections in 1 month. Orders: Orders AMB Joint Injection/Aspiration Today M17.12 - Unilateral primary osteoarthritis, left knee, M25.562 - Pain in left knee Coding Level of Care Code Est Pt Level 4 (09467) Procedure Only Diagnoses Left knee pain M25.562 Osteoarthritis of left knee M17.12 Right knee pain M25.561 Arthritis of right knee M17.11 CPT Codes Coding - 76946 Large joint: 00984 - Large joint ([id number])
[2024-02-28 13:14] VITALS: BP 111/74; PULSE 72; RESP 16; O2SAT 96; BMI 24.1
[2024-02-28 13:55] VITALS: BP 56/34; BP 95/34
== END 2024-02-28 14:03 | disposition home or self-care (01) ==
LOC: HO.PMC 13:01
PROVIDERS: PCP Registered Nurse; Visit Provider Anesthesiology
DX: M25.561 Pain in right knee (principal); M17.10 Unilateral primary osteoarthritis, unspecified knee; M25.562 Pain in left knee
CPT/HCPCS: 20610; 99214

== ENCOUNTER → 2024-02-28 13:00 | Outpatient (BNVA) | payer OTHER, SELFPAY | PROVIDERS: PCP Registered Nurse; Visit Provider Anesthesiology | DX: M17.0 Bilateral primary osteoarthritis of knee (principal) | CPT/HCPCS: 20610; 99212; J7323 ==

== ENCOUNTER 2024-03-04 10:04 | Inpatient (IN) | payer OTHER, SELFPAY ==
[2024-02-25 09:39] LABS: Anion Gap 10 (12-20); Blood Urea Nitrogen 22 mg/dL (9-16); Calcium 9.4 mg/dL (8.4-10.2); Carbon Dioxide 25 mmol/L (22-29); Chloride 110 mmol/L (96-108); Estimated Glomerular Filt Rate > 60; Glucose Random 94 mg/dL (60-115); Potassium 4.2 mmol/L (3.3-5.1); Sodium 141 mmol/L (135-145)
[2024-02-26 09:00] LABS: MANUAL DIFF FLAG NO
[2024-02-26 09:28] LABS: Basophils Absolute Auto 0.1 X10*3/uL (0.0-0.2); Basophils Percent Auto 1.8 % (0-2); Eosinophils Absolute Auto 0.2 X10*3/uL (0.0-0.4); Hematocrit 37.3 % (37.0-47.0); Hemoglobin 12.1 g/dl (12.0-16.0); Imm Gran Abs Auto 0.01 X10*3/uL (0.00-0.03); Imm Gran Pct Auto 0.4 % (0.0-0.4); Lymphocytes Absolute Auto 1.3 X10*3/uL (1.2-4.9); Lymphocytes Percent Auto 47.2 % (20-40); Mean Corpuscular HGB Conc 32.4 g/dl (31.0-35.0); Mean Corpuscular Hemoglobin 29.7 pg (27.0-33.0); Mean Corpuscular Volume 91.4 fL (80.0-98.0); Mean Platelet Volume 9.6 fL (9.4-12.3); Monocytes Absolute Auto 0.2 X10*3/uL (0.1-1.2); Neutrophils Percent Auto 36.6 % (45-73); Platelet Count 242 X10*3/uL (160-400); Red Blood Count 4.08 X10*6/uL (4.20-5.50); Red Cell Distribution Width 12.9 % (11.0-16.0); White Blood Count 2.8 X10*3/uL (4.8-10.8)
[2024-02-26 09:31] LABS: INTERNATIONAL NORM RATIO 0.9 (0.9-1.1); Prothrombin Time 10.4 SEC (10.9-12.4)
[2024-02-26 09:34] LABS: Partial Thromboplastin Time 31.8 SEC (26.0-36.8)
[2024-02-26 10:28] LABS: Estimated Average Glucose 94 mg/dL; Hemoglobin A1C 94.5854 umol/L; Hemoglobin A1c % 4.9 % (<6.0); Total Hemoglobin (HGBA1C) 3172.6123 umol/L
[2024-02-26 10:40] LABS: Alanine Aminotransferase 29 U/L (0-31); Alkaline Phosphatase 64 U/L (39-117); Anion Gap 12 (12-20); Aspartate Amino Transferase 29 U/L (5-31); Bilirubin Total 0.5 mg/dL (0.0-1.0); Blood Urea Nitrogen 18 mg/dL (9-16); C Reactive Protein < 0.10 mg/dL (< or = 0.50); Calcium 9.6 mg/dL (8.4-10.2); Carbon Dioxide 24 mmol/L (22-29); Chloride 111 mmol/L (96-108); Cholesterol 218 mg/dL (<200); Estimated Glomerular Filt Rate > 60; Glucose Random 88 mg/dL (60-115); HDL Cholesterol 60 mg/dL (>40); Iron 102 mcg/dL (30-160); LDL Cholesterol Calculated 148 mg/dL (<100); Percent Iron Saturation 38 % (15-50); Potassium 4.1 mmol/L (3.3-5.1); Sodium 143 mmol/L (135-145); Total Iron Binding Capacity 269 mcg/dL (228-428); Total Protein 6.8 g/dL (6.5-8.0); Triglycerides 54 mg/dL (<150); Unsaturated Iron Binding 167 ug/dL
[2024-02-26 10:48] LABS: Vitamin B12 1171 pg/mL (200-900)
[2024-02-26 11:23] LABS: Ferritin 83 ng/mL (10-250); Insulin 4 uU/mL (2-29); TSH reflex Free T4 2.23 uIU/mL (0.32-4.0); Vitamin D 25-OH Total 39.7 ng/mL (>30)
[2024-02-29 09:22] VITALS: BMI 23.7
[2024-02-29 10:37] LABS: Zinc 84 mcg/dL (60-130)
[2024-03-01 12:12] LABS: Vitamin B1 19 nmol/L (8-30)
[2024-03-04] VITALS (11 sets, daily range): BP systolic 100–119; BP diastolic 56–67; PULSE 66–105; RESP 12–21; TEMP 36.2–36.9; O2SAT 96–100; BMI 22.8
[2024-03-04] MEDS: Lactated Ringers 1,000 ML 100 ML IVCONT ×2 (10:35→15:39)
[2024-03-04] MEDS: Aprepitant 32 MG/4.4 ML VIAL IVPUSH (10:35)
--- NOTE | 2024-03-04 10:44 | PC.NURSE ---
Medication Aponvie wasted in pyxis by this nurse in error. Medication given in preop. Eloy from Pharmacy made aware.
--- NOTE | 2024-03-04 11:09 | MHC.SHP ---
Pre-Procedural Eval Section A - 24 Hr Update-Section A only Date of Service: 03/04/24 The patient is an INPATIENT: Yes The patient has been examined within 24 hours of the surgical procedure. The History & Physical has been completed within 30 days and I have reviewed it.: Yes Section B - Complete if H&P > 30 days Chief Complaint: Diaphragmatic hernia Relevant Family History (Specify if Yes): No Relevant Social History: None Present Medications: None Medical History: No relevant PMH History of Previous Operations: No relevant previous surgery Allergies: Allergies Allergy/AdvReac Type Severity Reaction Status Date / Time No Known Allergies Allergy Verified 03/04/24 10:06 [No Known Allergies*] Review of Systems Sugical H&P ROS: Negative: Constitution, Cardiovascular, Respiratory, Neurological, Psychiatric, Hem-Onc, Allergic/Immunologic, Gastrointestinal, Genitourinary, Musculoskeletal, Integumentary, Endocrine and Eyes/Ears/Nose/Throat Exam Surgical H&P Exam: Normal: HEENT, Normal: Heart, Normal: Lungs, Normal: Extremities, Normal: Abdomen, Normal: Skin and Normal: Neurological Plan Diagnosis/Plan: Unchanged I have reviewed the history and physical and performed a pertinent physical examination on my patient. No changes have occurred unless specified. Time Spent With Patient Time: Total time managing care of this patient today ____ minutes.
--- NOTE | 2024-03-04 11:15 | HO.ANESPROP2 ---
Documented by User: Iveth Arreaga NP 03/03/24 10:01 HPI - Anesthesia Eval Consult details Narrative: 64yo F for Repair Hernia Diaphragmatic Lap PMFSH Active Problems Active Problems: All Active Problems Arthritis of right knee (Acute) Right knee pain (Acute) Pre-op evaluation (Acute) HPV in female (Acute) Diaphragmatic hernia (Acute) Postcoital bleeding (Acute) Heart palpitations (Acute) Muscle spasms of neck (Acute) Left knee pain (Acute) Cervical spondylosis (Acute) Cervical radiculopathy (Acute) Achalasia (Acute) Rectal bleeding (Acute) RUQ abdominal pain (Acute) Dysplasia of cervix, low grade (PADMINI 1) (Acute) Osteoarthritis of right knee (Acute) Osteoarthritis of left knee (Acute) Weight loss (Acute) Myoma (Acute) Osteoarthritis of patellofemoral joint (Acute) Postmenopausal bleeding (Acute) Well woman exam (Acute) Migraines (Acute) Painful arc syndrome of right shoulder (Acute) Weight loss, non-intentional (Acute) Polyarthralgia (Acute) Constipation (Acute) Dysphagia (Acute) IBS (irritable bowel syndrome) (Acute) Neutropenia (Acute) Cervical high risk HPV (human papillomavirus) test positive (Acute) GERD (gastroesophageal reflux disease) (Acute) Karina's disease (Acute) Non-toxic multinodular goiter (Acute) Osteoarthritis of left hip (Acute) Chronic pain syndrome (Acute) Spondylosis, lumbar, with myelopathy (Acute) Sacroiliitis (Acute) Past Medical History Medical History (Updated 03/04/24 @ 11:26 by Dru Alvarado MD) Cervical high risk HPV (human papillomavirus) test positive Fibromyalgia Elevated cholesterol Weight loss Karina's disease Non-toxic multinodular goiter Osteoarthritis of left hip Schatzki's ring Hiatal hernia Hx of migraines History of multinodular goiter IBS (irritable bowel syndrome) GERD (gastroesophageal reflux disease) Dysphagia Chronic pain syndrome Spondylosis, lumbar, with myelopathy Sacroiliitis Family History Family History Father Unknown family medical history Mother Arthritis Diverticulitis Gastritis Breast cancer Chronic asthma Adenomatous colon polyp HTN (hypertension) Maternal Grandmother Colon cancer Daughter Hypothyroid Daughter Traveling blood clot in leg Obesity Prediabetes Family history of problems with anesthesia: Yes Surgical History Surgical History History of bilateral tubal ligation Hx of dilation and curettage Hx of arthroscopy of right knee History of esophagogastroduodenoscopy (EGD) Hx of colonoscopy History of cholecystectomy History of Problems with Anesthesia: No Social History Social History Household Members: None Housing: House Are you a primary daytime caregiver to a significant other at home: No Do you presently have visiting nurse or other home services: No Alcohol intake: never Patient Tobacco Use Status: Former Tobacco user Tobacco use type: Cigarette Years Smoked: 18 Smoked in Last 30 Days: No Use of substances other than those prescribed or required for medical reasons: No Have you been hit, kicked, punched, or otherwise hurt by someone within the past year? 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 Allergy/AdvReac Type Severity Reaction Status Date / Time No Known Allergies Allergy Verified 03/04/24 10:06 [No Known Allergies*] Home Medications ?Medication ?Instructions ?Recorded ?Confirmed ?Last Taken ?Type diphenhydramine HCl 25 mg capsule 25 mg PO BEDTIME PRN Insomnia 11/03/20 03/04/24 11/05/23 History capsaicin 0.025 % topical cream 0.025 appl topical BID 07/24/22 03/04/24 Unknown History diclofenac sodium 1 % topical gel 1 g topical BID 07/24/22 03/04/24 Unknown History lidocaine 5 % topical ointment 5 appl topical Q OTHER DAY 07/24/22 03/04/24 Unknown History amitriptyline 10 mg tablet 5 mg PO BEDTIME PRN Insomnia 08/28/22 03/04/24 11/05/23 History omega 5-iyy-hve-fish oil 1,000 mg 2 cap PO DAILY 09/01/22 03/04/24 03/03/24 History (120 mg-180 mg) capsule (Fish Oil) duloxetine 40 mg capsule,delayed 40 mg PO DAILY 09/21/22 03/04/24 11/05/23 History release Centrum Silver Women 1 tab PO DAILY 11/28/22 03/04/24 11/06/23 History Exam Height,Weight and Vital Signs: Height 5 ft 3 in Weight 60.781 kg Pertinent Lab Results Pertinent Lab Results: Laboratory Tests 02/25/24 02/26/24 08:55 08:55 WBC 2.8 L RBC 4.08 L Hgb 12.1 Hct 37.3 MCV 91.4 MCH 29.7 MCHC 32.4 RDW 12.9 Plt Count 242 MPV 9.6 Immature Gran % (Auto) 0.4 Neut % (Auto) 36.6 L Lymph % (Auto) 47.2 H [place] % (Auto) 7.0 Eos % (Auto) 7.0 H Baso % (Auto) 1.8 Lymph # (Auto) 1.3 [place] # (Auto) 0.2 Eos # (Auto) 0.2 Baso # (Auto) 0.1 Abs Immat Gran (auto) 0.01 Absolute Neuts (auto) 1.0 L Absolute Nucleated RBC 0.000 Nucleated RBC % (auto) 0.0 PT 10.4 L INR 0.9 APTT 31.8 Sodium 141 143 Potassium 4.2 4.1 Chloride 110 H 111 H Carbon Dioxide 25 24 Anion Gap 10 L 12 BUN 22 H 18 H Creatinine 0.85 0.80 Estim Creat Clear Calc TNP TNP Estimated GFR > 60 > 60 Random Glucose 94 88 Estimat Average Glucose 94 Hemoglobin A1c % 4.9 Insulin Level 4 Calcium 9.4 9.6 Iron 102 TIBC 269 % Saturation 38 Unsat Iron Binding 167 Ferritin 83 Total Bilirubin 0.5 AST 29 ALT 29 Alkaline Phosphatase 64 C-Reactive Protein < 0.10 Total Protein 6.8 Albumin 4.0 Triglycerides 54 Cholesterol 218 H LDL Cholesterol, Calc 148 H HDL Cholesterol 60 Vitamin B1 19 Vitamin B12 1171 H 25-OH Vitamin D Total 39.7 TSH 2.23 Zinc 84 Blood Type A Positive Antibody Screen NEGATIVE Narrative Narrative: EKG 03/2023 Vent. Rate : 054 BPM Atrial Rate : 054 BPM P-R Int : 176 ms QRS Dur : 078 ms QT Int : 420 ms P-R-T Axes : 068 028 038 degrees QTc Int : 398 ms Sinus bradycardia Otherwise normal ECG When compared with ECG of 08-SEP-2019 18:36, No significant change was found ECHO 2023 Conclusions: - The left ventricular systolic function is normal. The calculated ejection fraction is 68% by biplane method. - No obvious valvular pathology seen on this study. Holter 2023 1. Patient was monitored for total period of 13 days and 8 hours 2. Baseline was normal sinus rhythm with average heart of 61 beats per minute 3. Frequent sinus bradycardia noted with 55.5% of the time heart rate below 60 beats per minute 4. No significant pauses or ectopy burden noted 5. A total SVT events noted longest lasting 10 beats and the fastest at 152 beats per minute 6. Patient reported 5 events with symptoms of palpitations correlating with sinus tachycardia Assessment and Plan Assessment Anesthesia Assessment: Chart Reviewed Final Anesthetic Review Family History of Problems with Anesthesia: Yes History of Problems with Anesthesia: No Documented by User: Tess Calvert DO 03/04/24 11:35 [facility] Past Medical History Medical History (Updated 03/04/24 @ 11:26 by Dru Alvarado MD) Cervical high risk HPV (human papillomavirus) test positive Fibromyalgia Elevated cholesterol Weight loss Karina's disease Non-toxic multinodular goiter Osteoarthritis of left hip Schatzki's ring Hiatal hernia Hx of migraines History of multinodular goiter IBS (irritable bowel syndrome) GERD (gastroesophageal reflux disease) Dysphagia Chronic pain syndrome Spondylosis, lumbar, with myelopathy Sacroiliitis Family History Family History Father Unknown family medical history Mother Arthritis Diverticulitis Gastritis Breast cancer Chronic asthma Adenomatous colon polyp HTN (hypertension) Maternal Grandmother Colon cancer Daughter Hypothyroid Daughter Traveling blood clot in leg Obesity Prediabetes Family history of problems with anesthesia: No Surgical History Surgical History History of bilateral tubal ligation Hx of dilation and curettage Hx of arthroscopy of right knee History of esophagogastroduodenoscopy (EGD) Hx of colonoscopy History of cholecystectomy History of Problems with Anesthesia: No Social History Social History Household Members: None Housing: House Are you a primary daytime caregiver to a significant other at home: No Do you presently have visiting nurse or other home services: No Alcohol intake: never Patient Tobacco Use Status: Former Tobacco user Tobacco use type: Cigarette Years Smoked: 18 Smoked in Last 30 Days: No Use of substances other than those prescribed or required for medical reasons: No Have you been hit, kicked, punched, or otherwise hurt by someone within the past year? 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 Allergy/AdvReac Type Severity Reaction Status Date / Time No Known Allergies Allergy Verified 03/04/24 10:06 [No Known Allergies*] Home Medications ?Medication ?Instructions ?Recorded ?Confirmed ?Last Taken ?Type diphenhydramine HCl 25 mg capsule 25 mg PO BEDTIME PRN Insomnia 11/03/20 03/04/24 11/05/23 History capsaicin 0.025 % topical cream 0.025 appl topical BID 07/24/22 03/04/24 Unknown History diclofenac sodium 1 % topical gel 1 g topical BID 07/24/22 03/04/24 Unknown History lidocaine 5 % topical ointment 5 appl topical Q OTHER DAY 07/24/22 03/04/24 Unknown History amitriptyline 10 mg tablet 5 mg PO BEDTIME PRN Insomnia 08/28/22 03/04/24 11/05/23 History omega 0-srq-noc-fish oil 1,000 mg 2 cap PO DAILY 09/01/22 03/04/24 03/03/24 History (120 mg-180 mg) capsule (Fish Oil) duloxetine 40 mg capsule,delayed 40 mg PO DAILY 09/21/22 03/04/24 11/05/23 History release Centrum Silver Women 1 tab PO DAILY 11/28/22 03/04/24 11/06/23 History Exam Exam Date and Time: 03/04/24 1120 Height,Weight and Vital Signs: Height 5 ft 3 in Weight 60.781 kg Height 5 ft 3 in Weight 58.377 kg Vital Signs Temperature 97.2 F 03/04/24 10:31 Pulse Rate 85 03/04/24 10:31 Respiratory Rate 16 03/04/24 10:31 Blood Pressure 106/65 03/04/24 10:31 Pulse Oximetry 96 03/04/24 10:31 Oxygen Delivery Method Room Air 03/04/24 10:31 Temperature 97.2 F 03/04/24 10:31 Pulse Rate 85 03/04/24 10:31 Respiratory Rate 16 03/04/24 10:31 Blood Pressure 106/65 03/04/24 10:31 Pulse Oximetry 96 03/04/24 10:31 Oxygen Delivery Method Room Air 03/04/24 10:31 Airway Mallampati Class: II TM Dist: >3cm Neck ROM: Full Denture: Lower Partial: Upper Heart: S1S2 Lungs: CTAB Assessment and Plan Assessment Anesthesia Assessment: Anesthesia Plan Discussed and Chart Reviewed Final Anesthetic Review Family History of Problems with Anesthesia: No History of Problems with Anesthesia: No NPO: Yes ASA Class: II Final Preanesthetic Review: No Changes in Pt Med Stat, Meds/Allgs Chart Reviewed, Consent Obtained/Reviewed and Anes Risks/Benef Reviewed Patient Risk: Low Procedure Risk: Intermediate Anesthetic Plan Anesthetic Plan: GA and Agree w/ Assess. and Plan Disposition: Standard PACU
--- NOTE | 2024-03-04 11:20 | P.BOP_ITS ---
Brief Operative Note Date of Service: 03/04/24 Pre-op diagnosis: Diaphragmatic hernia with comorbidities including GERD, migraines, liver steatosis Post-op diagnosis: same Procedure: Date of Service: 03/04/24 Pre-op diagnosis: Paraesophageal hernia Post-op diagnosis: same (Diaphragmatic hernia & abdominal adhesions and esophageal lipoma) Procedure: Procedure: COMORBIDITIES: GERD, diaphragmatic hernia, migraines, liver steatosis ?INDICATIONS: The patient is a 64 year old male who was referred to me from Ms. Jones for a diaphragmatic hernia and GERD confirmed by UGI. The patient is scheduled today for diaphragmatic hernia repair. Risks of recurrent hernia, dysphagia, persistent GERD, VTE, leak, infection and bleeding were discussed with the patient and he is in agreement with the plan. PROCEDURE: Esophago-gastroscopy, laparoscopic lysis of adhesions, laparoscopic repair of incarcerated diaphragmatic hernia, laparoscopic excision of esophageal lipoma and laparoscopic gastropexy. DESCRIPTION OF PROCEDURE: After informed consent was obtained from the patient, the patient was given preoperative antibiotics, and was transferred to the operating room. After successful induction of general anesthesia, pneumatic compression devices were placed on both lower extremities. An upper endoscopy was performed next. The oropharynx and upper esophagus appeared to be within normal limits. Because of the paraesophageal hernia I was not able to pass the scope into the distal stomach. After all fluid and air were suctioned and the stomach was fully decompressed, the scope was withdrawn and secured in the mid esophagus. The patient was then prepped and draped in the usual sterile manner. Because of the previous open cholecystectomy through an upper midline incision, abdominal access was established at the left upper quadrant with the Veress needle. The abdomen was insufflated with CO2 to a pressure of 15 mmHg and a 5 mm Versi step port was placed at the left mid-abdomen. Under direct visualization, the Veress needle was removed and there was no injury where it was placed. It was exchanged with a 5 mm Versi-step port. An additional extra 5 mm Versi-step port was placed to the left of the umbilicus. All upper abdominal adhesions from the previous open cholecystectomy were lysed completely. Following that additional ports were placed, specifically two 5 mm Versi-step ports to the left upper and right upper quadrant, and a 12 mm Versi-Step port to the right upper quadrant. 1% lidocaine plain was used to infiltrate all port sites as well as all fascia defects. Following that, the patient was placed in a steep reverse Trendelenburg position. An additional 5 mm port was placed to the right flank for the Mediflex retractor that was used to retract the left lobe of the liver. There was a diaphragmatic hernia present. I then opened the gastrocolic ligament between the transverse colon and the greater curvature of the stomach with the ultrasonic device to enter the lesser sac and facilitate the ligation of the short gastric vessels. I started at at the upper third along the greater curvature and using the Thunderbeat, all attachments were divided. There was an obvious hiatal hernia. The stomach was incarcerated into the mediastinum with multiple thick adhesions. Mobilization of the stomach was very difficult and required tedious and careful dissection. I continued dissecting along the hiatus toward the left denice into the mediastinum mobilizing the hernia sac from the mediastinum. The esophagus was dissected off the aorta. The pars flaccida was opened. It was actually herniated into the hernia defect. The vena cava was dilated and it was carefully protected. I then continued by dissecting even further into the posterior retro-esophageal space all the way to the angle of His. I continued to mobilize the esophagus into the mediastinum circumferentially. The esophagus was densely adhrent to the aorta and the majority of these adhesions were mobilized. Both vagal nerves were seen and preserved. With extensive circumferential dissection into the mediastinum, I was able to bring the GE junction at least 5cm below the crura. There was an esophageal lipoma posterior to the esophagus which was incarcerated into the mediastinum. This was carefully dissected off the esophagus and the posterior vagus nerve and was sent to Pathology. I closed the hernia defect with two interrupted #0 Surgidac sutures using the Endo Stitch device, both of which were placed posterior. No anterior sutures were placed due to the anatomical position of the esophagus and upper stomach. A gastropexy was then performed in order to prevent postoperative GERD and partial gastric volvulus. Several interrupted 2.0 Surgidac sutures were placed between the greater curvature of the dissected stomach and the previously divided greater omentum and gastro-colic ligament using the Endo-Stitch device. ?An upper endoscopy was performed. There was no narrowing at the GE junction or any esophageal injury. The scope was easily advanced all the way to the pylorus which was clearly visualized. There was no narrowing anywhere. I confirmed that the GE junction was 3cm intra-abdominally. At that point the gastroscope was withdrawn from the patient?s mouth while we were decompressing the bowel and the stomach from any remaining air. I looked into the lesser sac to see how the stomach was situating and it was situating well. There was no bleeding from the, spleen, or short gastric vessels. The Mediflex retractor was removed, and the undersurface of the liver was inspected and there was no bleeding. The patient was placed in supine position. Then 30cc of Ropivacaine plain with 10 mg of Dexamethasone were used to infiltrate the fascial closure as well as all skin incisions. At this point, the abdomen was deflated, all ports were removed under direct vision, and no bleeding was noted from any of the port sites. The skin incisions were irrigated with saline and were closed with 4-0 absorbable monofilament sutures. Steri- Strips and OpSites were used to cover all incisions. The patient was extubated and was transferred in stable condition to the recovery room for further care. I was present and performed all garner parts of the procedure. Ms. Duenas was the food trades assistants. There were no residents to assist with this case. James Alvarado MD, PhD, FACS Surgeon: Dru Alvarado MD Anesthesia: GETA, local and other (TAP block) Was an Utility System Repairer used for this Procedure?: No Utility System Repairer: Teresa Duenas Estimated blood loss (mL): 10 IV fluids (mL): 1,800 Pathology: other (esophageal lipoma) Condition: stable Disposition: PACU
--- NOTE | 2024-03-04 11:23 | P.PNGS_ITS ---
Subjective Subjective Date of Service: 03/05/24 Interval history: Feels well. Mild incisional pain. She is tolerating phase 1 bariatric diet Physical Exam 2 Vital Signs: Vital Signs: Last Vital Signs Temp 97.2 F 03/04/24 10:31 Pulse 85 03/04/24 10:31 Resp 16 03/04/24 10:31 BP 106/65 03/04/24 10:31 Pulse Ox 96 03/04/24 10:31 O2 Del Method Room Air 03/04/24 10:31 BMI result Body Mass Index 22.8 GI: Inspection: Yes normal to inspection, Yes incision (clean, dry and intact) and Yes obesity Palpation (GI): Soft to palpation Extrem: Right lower extremity: normal to inspection (no calf tenderness) L eft lower extremity: normal to inspection (no calf tenderness) Objective Data Active Medications Lactated Ringer's (Lr) 1,000 mls @ 100 mls/hr IVCONT .Q10H CHERYL Last Admin: 03/04/24 10:35 Dose: 100 mls/hr Documented By: CELENA [facility] 03/05/24 05:30 03/05/24 05:30 Procedures Date of Service Date of Service: 03/05/24 Progress Note: A&P Assessment and plan (1) Diaphragmatic hernia: Status: Acute Assessment and Plan: s/p laparoscopic lysis of adhesions, diaphragmatic hernia repair, excision of esophageal lipoma and gastropexy Doing well Will check am labs and if OK the patient will be discharged home (2) GERD (gastroesophageal reflux disease): Status: Acute (3) Polyarthralgia: Status: Acute (4) Steatosis, liver: Status: Acute (5) Status post repair of paraesophageal diaphragmatic hernia: Status: Acute (6) Lipoma: Status: Acute Time Spent With Patient Time: Total time managing care of this patient today ____ minutes. Quality Stroke Does the patient have a stroke diagnosis?: No VTE Prior VTE?: No VTE Risk Level:: Surgical - moderate VTE Device Contraindication: N/A - Device Ordered VTE Drug Contraindication: Treatment Not Indicated
[2024-03-04] MEDS: HYDROmorphone HCl 0.5 MG/0.5 ML SYRINGE IVPUSH ×2 (14:37→14:46)
--- NOTE | 2024-03-04 14:44 | PM.DS ---
DS: Providers Provider Date of Service: 03/05/24 Date of admission: 03/04/24 10:04 Primary care physician: SWETA Stokes DS: Diagnosis Discharge Diagnosis (1) Diaphragmatic hernia: Status: Resolved (2) GERD (gastroesophageal reflux disease): Status: Acute (3) Polyarthralgia: Status: Acute (4) Steatosis, liver: Status: Acute DS: Summary Hospital Course Hospital Course: ADMITTING DIAGNOSIS: diaphragmatic hernia, arthritis, HPV, cervical radiculopathy/spondylosis, migraines, constipation/IBS, neutropenia, GERD, Hasthimoto's disease, nontoxic MNG, chronic pain ? DISCHARGE DIAGNOSIS: same, s/p laparoscopic repair diaphragmatic hernia with gastropexy ? PAST SURGICAL HISTORY:? History of bilateral tubal ligation Hx of dilation and curettage Hx of arthroscopy of right knee History of esophagogastroduodenoscopy (EGD) Hx of colonoscopy History of cholecystectomy ? PROCEDURE: upper endoscopy, diaphragmatic hernia repair with gastropexy ? DISCHARGE SUMMARY: ? History of Present Illness: ? The patient is a? 64? year-old woman with a BMI of? ?22.8 ? kg/m2 and associated co-morbidities as described above. She presented for management of diaphragmatic hernia. The patient had extensive work-up and was electively scheduled for laparoscopic diaphragmatic hernia repair and gastropexy. Risks and complications of the surgery were discussed with the patient in advance, particularly the possibility of , pulmonary embolism, anastomotic leak, bleeding, bowel injury, GERD, cardiac, renal or pulmonary complications. The patient understood all the risks and was in agreement with the surgical plan. ? Hospital Course: ? The patient underwent an uneventful laparoscopic diaphragmatic hernia repair with gastropexy and repair of diaphragmatic hernia on the day of admission. Postoperatively, the patient was transferred to the surgical floor. The patient received IV Acetaminophen and IV dilaudid for pain control. Patient was started on bariatric phase 1 diet POD #0. On postoperative day one, the patient was feeling well without nausea, vomiting, fevers, or tachycardia. The patient had some mild incisional pain and the abdomen was soft.? ? On the morning of postoperative day one, the patient was continued on 1 ounce of water or ice every half hour. During the day, the patient did fairly well, having some incisional pain, but able to ambulate adequately and to tolerate liquids well. ? Since the patient is doing well, we decided that the patient was ready to be discharged. The patient was given instructions to follow-up next week and to call the office for any fever over 101, persistent abdominal pain, nausea, vomiting, GERD, symptoms of DVT such as calf tenderness, or leg swelling, or pulmonary embolism such as chest pain or shortness of breath.? The patient was also instructed to drink 40-60 ounces of liquids per day using the 1-ounce cups. The patient had been given prescriptions for Tylenol for pain, Zofran prn for nausea, and pantoprazole and carafate previously. The patient was encouraged to ambulate and use the incentive spirometer. The patient was allowed to shower, but no baths, and encouraged to stay active at home. All of these instructions were given to the patient personally. All questions were answered and the patient understood all instructions, the instructions were also given to the patient in print. Time Attestation Discharge Coordination Time (in mins): 30 Quality: Safe Use of Opioids Does Pt have an Active Cancer Diagnosis on the Problem List?: No Quality: Stroke Does the patient have a stroke diagnosis?: No Physical Exam Vital Signs: Vital Signs: Last Vital Signs Temp 98.4 F 03/04/24 14:25 Pulse 76 03/04/24 14:40 Resp 12 03/04/24 14:40 BP 119/65 03/04/24 14:40 Pulse Ox 100 03/04/24 14:40 O2 Del Method Nasal Cannula wit h Capnography 03/04/24 14:40 O2 Flow Rate 3 03/04/24 14:40 BMI result Body Mass Index 22.8 DS: Data Data Completed and Pending Pending studies at discharge: Pending at discharge 03/04/24 13:37 Surgical [PTH] Routine Discharge Plan Discharge Anticipated Discharge Date/Time: 03/05/24 10:00 Patient Disposition: Home, Self-Care Discharge Diagnosis: s/p laparoscopic repair of diaphragmatic hernia with gastropexy Referrals: Tierney Goncalves FNP [Primary Care Provider] - 1 Week Discharge Medications: Continued topiramate 50 mg tablet 50 mg PO DAILY Qty: 30 0RF pantoprazole 40 mg tablet,delayed release (DR/EC) 40 mg PO DAILY@0630 diphenhydramine HCl 25 mg capsule 25 mg PO BEDTIME PRN (Reason: Insomnia) capsaicin 0.025 % cream 0.025 appl topical BID PRN (Reason: Pain) lidocaine 5 % ointment 5 appl topical Q OTHER DAY PRN (Reason: Pain) diclofenac sodium 1 % gel 1 g topical BID PRN (Reason: Pain) duloxetine 40 mg capsule,delayed release(DR/EC) 40 mg PO DAILY amitriptyline 10 mg tablet 5 mg PO BEDTIME PRN (Reason: Insomnia) sennosides [Senna Laxative] 8.6 mg tablet 17.2 mg PO BEDTIME Qty: 60 6RF sucralfate 100 mg/mL suspension 10 ml PO BID Qty: 600 2RF ondansetron 4 mg tablet,disintegrating 4 mg PO Q12H Qty: 20 0RF Rx Instructions: Only take one every 12 hours as needed if you have nausea Held omega 3-akf-wyt-fish oil [Fish Oil] 1,000 mg (120 mg-180 mg) Capsule 2 cap PO DAILY Hold Instructions: Resume on 03/12/24. Centrum Silver Women 1 tab PO DAILY Hold Instructions: Resume on 03/12/24. Discharge Orders: Discharge Order (Routine); Ordered 03/05/24 Ordered By: Dru Alvarado Activity on Discharge: No heavy lifting Stand Alone Forms: Patient Portal Discharge page Print Language: Serbian Care Plan Goals: resolution of diaphragmatic hernia Health Concerns: GERD Plan of Treatment: No tub baths, sex or returning to work until discussed at first post op appointment. No alcohol, tobacco or illegal drug use. Continue to use incentive spirometer hourly while awake. Walk in home for 5-10 minutes every 2 hours during the first week. Wear abdominal binder with activity. Follow all meal plan instructions from your surgeon. Call with any questions. Discharge Instructions 1. Please call your doctor or come back to the emergency room should any new symptoms arise. 2. Activity: abstain from alcohol, limited stair climbing, no bending, no driving, no exercise, no illicit substances, no lifting, no sex, no tub bath, no work. 4. Diet: follow your surgeon's recommendations for advancing diet. 5. Dressing Change/Wound Care: Your incisions are covered with waterproof dressings. You can shower with these and pat dry. Do not rub over dressings or incisions. If the area is tender, you may apply an ice pack for short intervals (no more than 20 minutes on, followed by at least 20 minutes off). Do not apply heat. Do not use creams, lotions, or topical antibiotics unless instructed to do so by your surgeon. 6. Call your doctor if: - Your temperature exceeds 101.5 F - You experience excessive pain or swelling - You have an unexpected reaction to medication - You have excessive bleeding - You experience continued vomiting/nausea - Your incision begins to separate - Your incision shows signs of infection such as increased redness, swelling, excessive pain, heat, or drainage (light blood or clear fluid is normal) General instructions: No lifting greater than 10 lbs for the next 6 weeks. No driving within 24 hours of taking narcotic pain medications. If you do not move your bowels in the next 2 days, please take milk of magnesia over the counter. Please follow the post op diet and do not advance your diet until cleared by your surgeon. Please walk around your home every hour or two to prevent blood clots from forming in your legs. You do not need to wake from sleeping to walk. Please sleep in a bed or couch to prevent kinking at the hips and knees. Please take your incentive spirometer (your lung lime burner) home with you and use it for the next few days to prevent pneumonias. You may shower, no hot tubs, baths or swimming pools. Please call the office with any questions or concerns such as increasing abdominal pain, fever, chills, shortness of breath, chest pain, leg pain or swelling, or redness or drainage from your incisions. Please make sure you are consuming 40-60 ounces of total fluids per day. Avoid all carbonation. Do not hesitate to contact the office with any questions at . The patient's medical history has been reviewed and they are considered low risk for post op DVT and therefore DVT prophylaxis is not considered necessary. Travel after surgery was reviewed. The patient has not disclosed any travel plans during the first 30 days after surgery and they have been advised that within the first 30 days after surgery any bus, plane, train or car travel over 2 hours in duration is contraindicated due to the possibility of developing blood clots from immobility. Any travel, needs to include periods of ambulation of 10 minutes in duration every 2 hours.? The patient was instructed to discuss any plans for travel during this period with their surgeon. Assessment: s/p laparoscopic repair of diaphragmatic hernia with gastropexy Discharge Date/Time: 03/05/24 11:28
[2024-03-04] MEDS: ceFAZolin Sodium/Dextrose,Iso 2 GM/50 ML PIGGYBACK IV (16:46)
--- NOTE | 2024-03-04 16:53 | PHA.MEDREC ---
Addendum entered by Juan David Summers RPh 03/04/24 17:00: Med rec reviewed by [facility]. Original Note: Pharmacy Consult ? Medication Reconciliation Pharmacy has reviewed the medication reconciliation done by nursing. Spoke to patient to confirm med list.
[2024-03-04 17:32] LABS: Hematocrit 36.6 % (37.0-47.0); Hemoglobin 12.4 g/dl (12.0-16.0)
[2024-03-04 17:44] LABS: Anion Gap 19 (12-20); Blood Urea Nitrogen 23 mg/dL (9-16); Calcium 9.5 mg/dL (8.4-10.2); Carbon Dioxide 19 mmol/L (22-29); Chloride 104 mmol/L (96-108); Creatinine Clr Calc Pharmacy 49.7; Estimated Glomerular Filt Rate 58; Glucose Random 108 mg/dL (60-115); Potassium 4.4 mmol/L (3.3-5.1); Sodium 138 mmol/L (135-145)
[2024-03-04 17:45] LABS: Anion Gap 21 (12-20); Blood Urea Nitrogen 24 mg/dL (9-16); Calcium 9.5 mg/dL (8.4-10.2); Carbon Dioxide 18 mmol/L (22-29); Chloride 104 mmol/L (96-108); Creatinine Clr Calc Pharmacy 48.7; Estimated Glomerular Filt Rate 57; Glucose Random 108 mg/dL (60-115); Potassium 4.5 mmol/L (3.3-5.1); Sodium 138 mmol/L (135-145)
[2024-03-04 17:47] LABS: Hemoglobin 12.3 g/dl (12.0-16.0)
[2024-03-04] MEDS: Acetaminophen 1,000 MG/100 ML PIGGYBACK 16.7 MG IV (20:23)
[2024-03-04] MEDS: Famotidine/PF 20 MG/2 ML VIAL IVPUSH (21:37)
[2024-03-04] MEDS: 0.9 % Sodium Chloride Flush 3 ML SYRINGE IVFLUSH (21:38)
[2024-03-05] MEDS: Lactated Ringers 1,000 ML 100 ML IVCONT (01:30)
[2024-03-05] MEDS: Acetaminophen 1,000 MG/100 ML PIGGYBACK 16.7 MG IV ×2 (01:44→07:40)
[2024-03-05 03:29] VITALS: BP 100/55; PULSE 59; RESP 18; TEMP 36.6; O2SAT 99
[2024-03-05 05:13] VITALS: O2SAT 99
[2024-03-05 05:54] LABS: MANUAL DIFF FLAG NO
[2024-03-05 05:55] LABS: Basophils Percent Auto 0.1 % (0-2); Hematocrit 36.1 % (37.0-47.0); Imm Gran Abs Auto 0.05 X10*3/uL (0.00-0.03); Imm Gran Pct Auto 0.6 % (0.0-0.4); Lymphocytes Absolute Auto 0.9 X10*3/uL (1.2-4.9); Lymphocytes Percent Auto 10.1 % (20-40); Mean Corpuscular HGB Conc 33.2 g/dl (31.0-35.0); Mean Corpuscular Volume 90.3 fL (80.0-98.0); Monocytes Absolute Auto 0.4 X10*3/uL (0.1-1.2); Monocytes Percent Auto 4.9 % (2-11); Neutrophils Absolute Auto 7.4 x10*3/uL (2.0-8.3); Neutrophils Percent Auto 84.3 % (45-73); Platelet Count 254 X10*3/uL (160-400); Red Cell Distribution Width 12.6 % (11.0-16.0); White Blood Count 8.8 X10*3/uL (4.8-10.8)
[2024-03-05 06:09] LABS: Anion Gap 18 (12-20); Blood Urea Nitrogen 17 mg/dL (9-16); Calcium 9.1 mg/dL (8.4-10.2); Carbon Dioxide 17 mmol/L (22-29); Chloride 105 mmol/L (96-108); Creatinine Clr Calc Pharmacy 58.1; Estimated Glomerular Filt Rate > 60; Glucose Random 99 mg/dL (60-115); Potassium 4.4 mmol/L (3.3-5.1); Sodium 136 mmol/L (135-145)
[2024-03-05 07:33] VITALS: BP 107/55; PULSE 51; RESP 16; TEMP 36.1; O2SAT 99
[2024-03-05] MEDS: Topiramate 25 MG TABLET 50 MG PO (07:39)
[2024-03-05] MEDS: DULoxetine HCl 20 MG CAPSULE.DR 40 MG PO (07:39)
[2024-03-05] MEDS: Famotidine/PF 20 MG/2 ML VIAL IVPUSH (07:40)
[2024-03-05] MEDS: 0.9 % Sodium Chloride Flush 3 ML SYRINGE IVFLUSH (07:41)
--- NOTE | 2024-03-05 08:37 | HO.POSTANES ---
Post Anesthesia Evaluation Post Anesthesia Evaluation Date of Service: 03/04/24 Vital Signs: Vital Signs Temp Pulse Resp BP Pulse Ox O2 Del Method 03/05/24 07:33 96.9 F 51 16 107/55 L 99 Room Air 03/05/24 05:13 99 Room Air 03/05/24 03:29 97.8 F 59 18 100/55 L 99 Room Air Anesthesia: General Mental Status: Awake Pain Control: Satisfactory Nausea/Vomiting: None Hydration: Adequate Anesthesia-Related Issues: No Anes. Related Issues
--- NOTE | 2024-03-05 08:58 | MHC.CM.PN ---
pt dcd prior to being seen by cm ,pt dcd home self care
[2024-03-06 05:48] LABS: Vitamin A 34 mcg/dL (38-98)
== END 2024-03-05 11:28 | disposition home or self-care (01) | DRG 220 ==
LOC: HO.SSSA 14:39 → HO.S3 15:01
PROVIDERS: Physician Assistant Surgical; Admitting Provider Surgery; PCP Registered Nurse; Visit Provider Surgery
PROC: 0BQT4ZZ Repair Diaphragm, Percutaneous Endoscopic Approach (ICD-10-PCS; principal; 2024-03-04 11:30)
DX: K44.0 Diaphragmatic hernia with obstruction, without gangrene (principal); K76.0 Fatty (change of) liver, not elsewhere classified; D17.4 Benign lipomatous neoplasm of intrathoracic organs; G43.909 Migraine, unspecified, not intractable, without status migrainosus; E06.3 Autoimmune thyroiditis; K21.9 Gastro-esophageal reflux disease without esophagitis; K66.0 Peritoneal adhesions (postprocedural) (postinfection); Z79.899 Other long term (current) drug therapy
CPT/HCPCS: 36415; 80048; 80053; 80061; 82306; 82607; 82728; 83036; 83525; 83540; 84425; 84443; 84590; 84630; 85014; 85018; 85025; 85610; 85730; 86140; 86850; 86900; 86901; 88304; A4649; C9145; J0131; J0690; J1100; J1171; J2003; J2250; J2371; J2405; J2598; J2704; J2795; J3010; J7120

== ENCOUNTER → 2024-03-04 10:04 | Outpatient (BNV) | payer OTHER, SELFPAY | PROVIDERS: Admitting Provider Surgery; PCP Registered Nurse; Visit Provider Surgery | DX: K44.0 Diaphragmatic hernia with obstruction, without gangrene (principal); K21.9 Gastro-esophageal reflux disease without esophagitis; M25.50 Pain in unspecified joint; K76.0 Fatty (change of) liver, not elsewhere classified | CPT/HCPCS: 43281; 99024; 99499 ==

== ENCOUNTER 2024-03-13 14:06 | Outpatient (AMB) | payer OTHER, SELFPAY ==
--- NOTE | 2024-03-13 14:12 | MHC.OFFVISWM ---
VS Expanded 03/13/24 14:25 BP 115/56 L Blood Pressure Location Rt brachial Blood Pressure Position Sitting Pulse 72 Pulse Source Pulse Oximeter Temp 97.3 F Temperature Source Temporal Artery Scan Pulse Oximetry 97 Oxygen Delivery Method Room Air Height 5 ft 3 in Weight 128 lb 3.2 oz BMI 22.7 Body Fat % 30.3 Body Fat Mass 38.8 Fat Free Mass 89.2 Visceral Fat Rating 7.0 Body Water % 49.2 Body Water Mass 63.0 Muscle Mass/Score 84.6 Basal Metabolic Rate/Score 1,205 Intake Visit Reasons: (OV) s/p Diaphragmatic Hernia Repair 03/04/24 Allergies No Known Allergies [No Known Allergies*] Allergy (Verified 03/13/24 14:15) HPI Comments Details: Patient is a pleasant 64-year-old female who returns to the office today in follow-up. She is approximately 9 days post hiatal hernia repair on 03/04/2024. No significant complaints of pain. Tolerating 1 shake, orgain rtd, protein bar and meal with 5 forks of protein and 5 of vegetables. [facility] Medical History (Updated 03/07/24 @ 00:03 by Estefania Yu) Cervical high risk HPV (human papillomavirus) test positive Fibromyalgia Elevated cholesterol Weight loss Karina's disease Non-toxic multinodular goiter Osteoarthritis of left hip Schatzki's ring Hiatal hernia Hx of migraines History of multinodular goiter IBS (irritable bowel syndrome) GERD (gastroesophageal reflux disease) Dysphagia Chronic pain syndrome Spondylosis, lumbar, with myelopathy Sacroiliitis Surgical History History of bilateral tubal ligation Hx of dilation and curettage Hx of arthroscopy of right knee History of esophagogastroduodenoscopy (EGD) Hx of colonoscopy History of cholecystectomy Family History Father Unknown family medical history Mother Arthritis Diverticulitis Gastritis Breast cancer Chronic asthma Adenomatous colon polyp HTN (hypertension) Maternal Grandmother Colon cancer Daughter Hypothyroid Daughter Traveling blood clot in leg Obesity Prediabetes Social History Household Members: Spouse Housing: House Are you a primary customer care agent to a significant other at home: No Do you presently have visiting nurse or other home services: No Alcohol intake: never Patient Tobacco Use Status: Former Tobacco user Tobacco use type: Cigarette Years Smoked: 18 service: No Current occupational status: employed 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 No complaints of reflux. Tolerating her meal plan. Continue and return to the clinic in approximately 3 weeks
[2024-03-13 14:25] VITALS: BP 115/56; PULSE 72; TEMP 36.3; O2SAT 97; BMI 22.7
== END 2024-03-13 14:28 | disposition home or self-care (01) ==
PROVIDERS: PCP Registered Nurse; Visit Provider Physician Assistant Surgical
DX: Z98.890 Other specified postprocedural states (principal); Z87.19 Personal history of other diseases of the digestive system
CPT/HCPCS: 99024

== ENCOUNTER → 2024-03-13 14:06 | Outpatient (BNVA) | payer OTHER, SELFPAY | PROVIDERS: PCP Registered Nurse; Visit Provider Physician Assistant Surgical | DX: Z48.815 Encounter for surgical aftercare following surgery on the digestive system (principal); Z87.19 Personal history of other diseases of the digestive system; Z98.890 Other specified postprocedural states | CPT/HCPCS: 99212 ==

== ENCOUNTER 2024-03-17 13:52 | Outpatient (REF) | payer OTHER, SELFPAY ==
--- NOTE | ~2024-03-17 | MM_ITS ---
EXAMINATION: MM SCREENING DIGITAL BREAST TOMOSYNTHESIS, BILATERAL CLINICAL INFORMATION: Screening. Asymptomatic. COMPARISON: Mammography: Comparison is made with available priors TECHNIQUE: Digital breast mammography with tomosynthesis is performed in both the craniocaudal and mediolateral oblique views along with computer-aided detection (CAD). FINDINGS: The breasts are heterogeneously dense, which may obscure small masses (ACR BI-RADS breast composition Category c). Right marker clip. There are no significant masses, abnormal calcifications, or other abnormalities. MM/MM tomosynthesis screening BI IMPRESSION: No mammographic evidence of malignancy. ASSESSMENT: BI-RADS BI-RADS 2 - Benign Findings RECOMMENDATION: Routine annual mammography screening. 1 year F/U This examination should not preclude the clinical evaluation of a suspicious palpable abnormality. This patient's information was entered into a reminder system with a target due date for their next mammogram. Electronically signed by: Emma Cerda DO 03/25/2024 03:20 PM JAMI
== END 2024-03-17 13:53 | disposition home or self-care (01) ==
LOC: HO.MAMMO 13:52
PROVIDERS: PCP Registered Nurse; Visit Provider Registered Nurse
DX: Z12.31 Encounter for screening mammogram for malignant neoplasm of breast (principal)
CPT/HCPCS: 77063; 77067

== ENCOUNTER → 2024-03-17 14:15 | Outpatient (BNV) | payer OTHER, SELFPAY | PROVIDERS: PCP Registered Nurse; Visit Provider Internal Medicine | DX: Z12.31 Encounter for screening mammogram for malignant neoplasm of breast (principal) | CPT/HCPCS: 77063; 77067 ==

== ENCOUNTER 2024-04-14 08:30 | Outpatient (AMB) | payer OTHER, SELFPAY ==
--- NOTE | 2024-04-14 08:26 | A.OFFVIS_ITS ---
VS Expanded 04/14/24 08:27 Height 5 ft 3 in Weight 125 lb 3 oz BMI 22.2 Intake Visit Reasons: (TV) s/p Diaphragmatic Hernia Repair 03/04/24 Doll Maker Required: No Allergies No Known Allergies [No Known Allergies*] Allergy (Verified 03/13/24 14:15) Medication List - Last Reconciled 04/14/24 by SUSANNAH Davis amitriptyline 5 mg PO BEDTIME PRN capsaicin 0.025% 0.025 appl topical BID PRN [Centrum Silver Women 1 tab PO DAILY] diclofenac sodium 1% 1 g topical BID PRN diphenhydramine HCl 25 mg PO BEDTIME PRN duloxetine 40 mg PO DAILY lidocaine 5% 5 appl topical Q OTHER DAY PRN omega 9-ylj-dfr-fish oil 1,000 (120-180) mg (Fish Oil) 2 caps PO DAILY pantoprazole 40 mg PO DAILY@0630 sennosides (Senna Laxative) 17.2 mg (2 x 8.6 mg) PO BEDTIME sucralfate 10 mL PO BID topiramate 50 mg PO DAILY HPI Comments Details: Patient is a pleasant 64-year-old female who returns to the office today in follow-up. She is approximately 6 weeks post hiatal hernia repair on 03/04/2024. Weight today is 125.3 pounds with a BMI of 22.2. She states she is doing well. She is not having any GERD. She does report a very few episodes of difficulty swallowing with certain foods such as potatoes or rice only at night. She also has ill fitting dentures. Taking MVI daily. Taking tylenol as needed for chronic arthritis Meal plan: 1 rtd shake orgain 1 celebrate bar/lithuanian yogurt 5 forks protein and 5 forks veg drinking 48 oz water daily exercise plan: walking outside and active with her job. [facility] Medical History (Updated 03/25/24 @ 00:02 by Estefania Yu) Cervical high risk HPV (human papillomavirus) test positive Fibromyalgia Elevated cholesterol Weight loss Karina's disease Non-toxic multinodular goiter Osteoarthritis of left hip Schatzki's ring Hiatal hernia Hx of migraines History of multinodular goiter IBS (irritable bowel syndrome) GERD (gastroesophageal reflux disease) Dysphagia Chronic pain syndrome Spondylosis, lumbar, with myelopathy Sacroiliitis Surgical History History of bilateral tubal ligation Hx of dilation and curettage Hx of arthroscopy of right knee History of esophagogastroduodenoscopy (EGD) Hx of colonoscopy History of cholecystectomy Family History Father Unknown family medical history Mother Arthritis Diverticulitis Gastritis Breast cancer Chronic asthma Adenomatous colon polyp HTN (hypertension) Maternal Grandmother Colon cancer Daughter Hypothyroid Daughter Traveling blood clot in leg Obesity Prediabetes Social History Household Members: Spouse Housing: House Are you a primary hospice care consultant to a significant other at home: No Do you presently have visiting nurse or other home services: No Alcohol intake: never Patient Tobacco Use Status: Former Tobacco user Tobacco use type: Cigarette Years Smoked: 20 service: No Current occupational status: employed 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 History Menstrual Age of Menarche: 13 Telehealth Telehealth Telehealth Platform: Telephone Location of provider rendering services: practice address Location of patient: address on file Patient Identification confirmed using: Name, : Yes Telehealth method: voice only Patient verbally consented to treatment: Yes Patient verbally consented to billing insurance company: Yes Patient informed of any privacy concerns related to visit: Yes Minutes spent on Phone/Video with Pt.: 20 Assessment & Plan Assessment & Plan (1) Status post repair of paraesophageal diaphragmatic hernia: Code(s): Z98.890 - Other specified postprocedural states; Z87.19 - Personal history of other diseases of the digestive system Category: Surgical Plan: Overall doing well. Has no significant complaints and was encouraged to continue the meal plan. As far as the swallowing issues, suggested smaller bites and chewing well. She will also contact her dentist reguarding the ill fitting dentures.
[2024-04-14 08:27] VITALS: BMI 22.2
== END 2024-04-14 09:01 | disposition home or self-care (01) ==
LOC: HO.HBS 08:48
PROVIDERS: PCP Registered Nurse; Visit Provider Physician Assistant Surgical
DX: Z98.890 Other specified postprocedural states (principal); Z87.19 Personal history of other diseases of the digestive system
CPT/HCPCS: 99024

== ENCOUNTER → 2024-04-14 08:30 | Outpatient (BNVA) | payer OTHER, SELFPAY | PROVIDERS: PCP Registered Nurse; Visit Provider Physician Assistant Surgical | DX: K21.9 Gastro-esophageal reflux disease without esophagitis (principal); Z71.3 Dietary counseling and surveillance; Z87.19 Personal history of other diseases of the digestive system; Z98.890 Other specified postprocedural states | CPT/HCPCS: 99212 ==

== ENCOUNTER 2024-04-16 13:46 | Outpatient (AMB) | payer OTHER, SELFPAY ==
[2024-04-16 13:53] VITALS: BP 109/59; PULSE 62; BMI 22.5
--- NOTE | 2024-04-16 13:53 | MHC.OFFVIS ---
Vital Signs 04/16/24 13:53 Height 5 ft 3 in Weight 126 lb 15.78 oz BMI 22.5 BP 109/59 L Blood Pressure Location Lt brachial Position Sitting Pulse 62 Intake Visit Reasons: 6 months dysphagia, CIC, GERD Intake Note: Patient returns to in office 6 months follow up of CIC. CC: Patient reports doing well and she states that she had diaphragmatic surgery done a few weeks ago and is in the process of healing now. Business Analytics Manager Required: No Accompanied by: Self / Same As Patient Allergies No Known Allergies [No Known Allergies*] Allergy (Verified 04/16/24 14:00) HPI HPI 6 months dysphagia, CIC, GERD: Details: Assessment & Plan (1) Dysphagia: Code(s): R13.10 - Dysphagia, unspecified Category: Medical (2) Constipation: Code(s): K59.00 - Constipation, unspecified Category: Medical Plan We review the finding than since it does not seem that achalasia is the problem it likely is due to her rather large hiatal hernia. At this point since she has failed all other management I think we need to consider whether hiatal hernia repair is a possibility. I am referring her to the surgeon to discuss this as a possible solution. In the meantime she continues on her omeprazole and senna. Return office visit in 6 months Orders: Referrals Bariatric Surgery Referral R13.10 - Dysphagia, unspecified Medications: New sennosides (Senna Laxative) 17.2 mg (2 x 8.6 mg) PO BEDTIME 60 tabs 6RF K59.00 - Constipation, unspecified Refilled omeprazole 40 mg PO DAILY 90 caps 3RF Discontinued bisacodyl Discontinued Reason: Doctor's Order 10 mg (2 x 5 mg) PO BEDTIME 30 days 60 tabs 0RF [id number] On 10/31/23 @ 16:46 KarenJuly Wrote To KarenJuly (2) And I put a specific note in the referral saying that she needed to be seen for fundoplication! So somebody is not reading the referrals. On 10/31/23 @ 14:03 Brett Gregg Wrote To Karen Per patient she received a call from bariatric surgery and was asked her height and weight and told that she did not qualify for bariatric surgery. Patient explained to them that she was referred d/t an esophagus problem, and she was told that they will consult with the doctor and call her back. Per patient she has not been contacted. yet. I sent a message to Mireya asking for an update. TODAY'S VISIT She is about 6 weeks status post her hiatal hernia repair with Dr. Alvarado. She is doing quite well. They switched her from omeprazole to pantoprazole I think because it is easier to swallow. She was having some trouble with things feeling like there were getting stuck at the gastroesophageal junction and they simply encouraged her to chew things more thoroughly and cut her food smaller. For now she is on Carafate to promote healing and I did remind her to ask them how long she needs to continue this since she does suffer constipation. For now however that is well controlled with her senna. Return office visit in 6 months [facility] Medical History Cervical high risk HPV (human papillomavirus) test positive Fibromyalgia Elevated cholesterol Weight loss Karina's disease Non-toxic multinodular goiter Osteoarthritis of left hip Schatzki's ring Hiatal hernia Hx of migraines History of multinodular goiter IBS (irritable bowel syndrome) GERD (gastroesophageal reflux disease) Dysphagia Chronic pain syndrome Spondylosis, lumbar, with myelopathy Sacroiliitis Surgical History History of bilateral tubal ligation Hx of dilation and curettage Hx of arthroscopy of right knee History of esophagogastroduodenoscopy (EGD) Hx of colonoscopy History of cholecystectomy Family History Father Unknown family medical history Mother Arthritis Diverticulitis Gastritis Breast cancer Chronic asthma Adenomatous colon polyp HTN (hypertension) Maternal Grandmother Colon cancer Daughter Hypothyroid Daughter Traveling blood clot in leg Obesity Prediabetes Social History Household Members: Spouse Housing: House Are you a primary childcare worker to a significant other at home: No Do you presently have visiting nurse or other home services: No Alcohol intake: never Patient Tobacco Use Status: Former Tobacco user Tobacco use type: Cigarette Years Smoked: 20 service: No Current occupational status: employed 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 History Menstrual Age of Menarche: 13 Review of Systems Const Denies fatigue, Denies fever(s), Denies night sweats, Denies poor appetite and Denies weight loss ENT Reports Normal hearing present, Denies dental pain, Reports dysphagia, Denies hearing loss, Denies mouth pain, Denies odynophagia, Denies throat swelling, Denies tongue swelling and Reports other (Dentition adequate) Card Reports no additional complaints Resp Reports no additional complaints GI Details: Denies abdominal pain, Denies melena, Denies bloating, Denies hematochezia, Reports constipation, Denies GI cramping, Reports dysphagia, Denies excessive flatus, Denies early satiety, Reports heartburn, Denies diarrhea, Denies nausea, Denies odynophagia, Denies vomiting and Denies hematemesis Skin/Breast Denies pruritus, Denies lesions, Denies rash and Denies jaundice Neuro Reports Normal hearing present and Denies Abnormal speech present Endo Denies fatigue Aller/Immun Denies throat swelling and Denies tongue swelling Physical Exam Vital Signs: Last Vital Signs Pulse 62 04/16/24 13:53 BP 109/59 L 04/16/24 13:53 BMI result Body Mass Index 22.5 Const General: cooperative, no acute distress, well developed and well groomed Nutritional Appearance: average body habitus and well nourished Orientation/consciousness: oriented to person, oriented to place and oriented to time Limitations: No language barrier HEENT Head: Yes normocephalic and Yes atraumatic Eyes General: appearance normal, both eyes and all related structures Pupils: Equal, round and reactive pupils present Neck Neck: Yes normal visual inspection and Yes no lymphadenopathy Thyroid: Thyroid normal Resp Effort & Inspection: normal respiratory effort and able to speak in complete sentences Auscultation: clear to auscultation bilaterally Cardio Rate: regular rate Rhythm: regular rhythm Heart sounds: Normal, physiologic split S2 sound present Peripheral pulses: radial pulses present and posterior tibial pulses present GI Inspection: No distended and No Abdominal panniculus present Palpation (GI): Soft to palpation, nontender, no guarding, not rigid and No hepatosplenomegaly present Percussion: Yes normal to percussion Auscultation: normal bowel sounds Rectal Exam - Female: deferred Skin General skin exam: no rashes or lesions noted, turgor normal, skin not dry, no jaundice, No spider nevi and no striae Rashes: no rashes Nails: normal Neuro General: oriented to person, oriented to place and oriented to time Cranial nerves: Yes Equal, round and reactive pupils present and Yes Normal hearing present Speech: No Abnormal speech present Extrem General: Yes normal to inspection, No clubbing, No cyanosis and No edema Psych Appearance: grossly normal and well kempt Mental Status: mental status grossly normal Speech and movement: Normal speech and movement present Affect: normal affect Attitude: cooperative Thought process: Normal thought process present and not confabulating Thought content: Normal thought content present Insight: Fair insight present (Psych) Judgement: Fair judgement present (Psych) Assessment & Plan Assessment & Plan (1) GERD (gastroesophageal reflux disease): Code(s): K21.9 - Gastro-esophageal reflux disease without esophagitis Category: Medical Plan She is about 6 weeks status post her hiatal hernia repair with Dr. Alvarado. She is doing quite well. They switched her from omeprazole to pantoprazole I think because it is easier to swallow. She was having some trouble with things feeling like there were getting stuck at the gastroesophageal junction and they simply encouraged her to chew things more thoroughly and cut her food smaller. For now she is on Carafate to promote healing and I did remind her to ask them how long she needs to continue this since she does suffer constipation. For now however that is well controlled with her senna. Return office visit in 6 months Medications: New pantoprazole 40 mg PO DAILY@0630 30 tabs 6RF K21.9 - Gastro-esophageal reflux disease without esophagitis Refilled sennosides (Senna Laxative) 17.2 mg (2 x 8.6 mg) PO BEDTIME 60 tabs 6RF K59.00 - Constipation, unspecified Coding Level of Care Code Est Pt Level 3 (37484) Diagnoses GERD (gastroesophageal reflux disease) K21.9
== END 2024-04-16 14:31 | disposition home or self-care (01) ==
PROVIDERS: PCP Registered Nurse; Visit Provider Nurse Practitioner
DX: K21.9 Gastro-esophageal reflux disease without esophagitis (principal)
CPT/HCPCS: 99213

== ENCOUNTER → 2024-04-16 13:46 | Outpatient (BNVA) | payer OTHER, SELFPAY | PROVIDERS: PCP Registered Nurse; Visit Provider Nurse Practitioner | DX: K21.9 Gastro-esophageal reflux disease without esophagitis (principal) | CPT/HCPCS: 99212 ==

== ENCOUNTER 2024-04-17 14:41 | Outpatient (REF) | payer OTHER, SELFPAY ==
--- NOTE | 2024-04-17 14:44 | EMG_ITS ---
Chief complaint: Bilateral hand numbness, neck pain, arm pain Reason for referral: Evaluate for radiculopathy versus Carpal Tunnel Syndrome Referred by: Kanika Liz NP Procedure done: Bilateral upper extremities NCS/EMG Precautions and/or limitations: None The limb temperature was monitored continuously and remained between 32-36 degrees C during the performance of the NCS. Nerve Conduction Studies Anti Sensory Summary Table ?Stim Site NR Onset (ms) Norm Onset (ms) Peak (ms) Norm Peak (ms) O-P Amp (?V) Norm O-P Amp Site1 Site2 Delta-0 (ms) Dist (cm) Timmy (m/s) Norm Timmy (m/s) Left Median Anti Sensory (2nd Digit) Wrist ? 2.7 3.5 <3.6 26.2 >10 Wrist 2nd Digit 2.7 14.0 52 Right Median Anti Sensory (2nd Digit) Wrist ? 2.5 3.3 <3.6 31.8 >10 Wrist 2nd Digit 2.5 14.0 56 Right Radial Anti Sensory (Thumb) Forearm ? 1.6 2.3 <3.1 55.7 Forearm Thumb 1.6 0.0 Left Ulnar Anti Sensory (5th Digit) Wrist ? 2.1 2.8 <3.7 32.5 >15.0 Wrist 5th Digit 2.1 14.0 67 Right Ulnar Anti Sensory (5th Digit) Wrist ? 2.0 3.1 <3.7 33.1 >15.0 Wrist 5th Digit 2.0 14.0 70 Motor Summary Table ?Stim Site NR Onset (ms) Norm Onset (ms) O-P Amp (mV) Norm O-P Amp iAmp (mV) Amp (1st) (%) Site1 Site2 Delta-0 (ms) Dist (cm) Timmy (m/s) Norm Timmy (m/s) Left Median Motor (Abd Poll Brev) Wrist ? 3.8 <3.9 10.3 >4.5 11.8 100.0 Elbow Wrist 3.8 21.0 55 >45 Elbow ? 7.6 9.5 11.0 92.2 Right Median Motor (Abd Poll Brev) Wrist ? 3.1 <3.9 8.6 >4.5 9.8 100.0 Elbow Wrist 4.2 20.5 49 >45 Elbow ? 7.3 8.3 9.5 96.5 Left Ulnar Motor (Abd Dig Minimi) Wrist ? 2.2 <3.0 10.0 >5 11.5 100.0 B Elbow Wrist 3.3 18.5 56 >45 B Elbow ? 5.5 10.1 11.6 101.0 A Elbow B Elbow 1.5 10.0 67 >45 A Elbow ? 7.0 9.8 11.4 98.0 Right Ulnar Motor (Abd Dig Minimi) Wrist ? 2.4 <3.0 9.6 >5 13.6 100.0 B Elbow Wrist 3.3 19.5 59 >45 B Elbow ? 5.7 10.1 14.7 105.2 A Elbow B Elbow 1.6 10.0 63 >45 A Elbow ? 7.3 9.1 13.8 94.8 EMG ?Side Muscle Nerve Root Ins Act Fibs Psw Amp Dur Poly Recrt Int Pat Comment Right 1stDorInt Ulnar C8-T1 Nml Nml Nml Nml Nml 0 Nml Complete Right FlexCarRad Median C6-7 Nml Nml Nml Nml Nml 0 Nml Complete Right Biceps Musculocut C5-6 Nml Nml Nml Nml Nml 0 Nml Complete Right Triceps Radial C6-7-8 Nml Nml Nml Nml Nml 0 Nml Complete Right Deltoid Axillary C5-6 Nml Nml Nml Nml Nml 0 Nml Complete Left 1stDorInt Ulnar C8-T1 Nml Nml Nml Nml Nml 0 Nml Complete Left FlexCarRad Median C6-7 Nml Nml Nml Nml Nml 0 Nml Complete Left Biceps Musculocut C5-6 Nml Nml Nml Nml Nml 0 Nml Complete Left Triceps Radial C6-7-8 Nml Nml Nml Nml Nml 0 Nml Complete Left Deltoid Axillary C5-6 Nml Nml Nml Nml Nml 0 Nml Complete FINDINGS: All motor and sensory nerves tested showed normal latencies, amplitudes and conduction velocities. Concentric needle EMG was performed in selected muscles of the bilateral upper extremities. Study did not reveal signs of electric abnormalities as shown in the table above. IMPRESSION: 1. This is a normal study. 2. There is no electrodiagnostic evidence for median neuropathy, ulnar neuropathy, brachial plexopathy, or cervical radiculopathy. Thank you for your kind referral. Chanda Castaneda MD, LAKISHA Board Certified, [place] Board [employer] and [employer] (ABPMR) Board Certified, [place] Board of Electrodiagnostic Medicine (ABEM) CODIN [phone] x [phone] MTDD
== END 2024-04-17 14:42 | disposition home or self-care (01) ==
LOC: HO.NEURO 14:41
PROVIDERS: PCP Registered Nurse; Visit Provider Nurse Practitioner Family
DX: M54.12 Radiculopathy, cervical region (principal)
CPT/HCPCS: 95886; 95911

== ENCOUNTER → 2024-04-17 14:44 | Outpatient (BNV) | payer OTHER, SELFPAY | PROVIDERS: PCP Registered Nurse; Visit Provider Physical Medicine & Rehabilitation | DX: R20.0 Anesthesia of skin (principal); R20.2 Paresthesia of skin; M54.2 Cervicalgia | CPT/HCPCS: 95886; 95911 ==

== ENCOUNTER 2024-04-21 14:19 | Outpatient (AMB) | payer OTHER, SELFPAY ==
[2024-04-21 14:37] VITALS: BP 100/78; PULSE 51; BMI 22.6
--- NOTE | 2024-04-21 14:37 | MHC.OFFVIS ---
Vital Signs 04/21/24 14:37 Height 5 ft 3 in Weight 127 lb 13.89 oz BMI 22.6 BP 100/78 Blood Pressure Location Lt brachial Position Sitting Pulse 51 Pulse Source Monitor Intake Visit Reasons: 6m follow up Allergies No Known Allergies [No Known Allergies*] Allergy (Verified 04/16/24 14:00) Medication List - Last Reconciled 04/21/24 by David Carmen MD acetaminophen ER 650 mg PO TID amitriptyline 5 mg PO BEDTIME PRN capsaicin 0.025% 0.025 appl topical BID PRN [Centrum Silver Women 1 tab PO DAILY] diclofenac sodium 1% 1 g topical BID PRN diphenhydramine HCl 25 mg PO BEDTIME PRN duloxetine 40 mg PO DAILY lidocaine 5% 5 appl topical Q OTHER DAY PRN omega [id number]-fish oil 1,000 (120-180) mg (Fish Oil) 2 caps PO DAILY pantoprazole 40 mg PO DAILY@0630 sennosides (Senna Laxative) 17.2 mg (2 x 8.6 mg) PO BEDTIME sucralfate 10 mL PO BID topiramate 50 mg PO DAILY HPI Comments Details: Adela returns for follow-up. Previously seen for consultation regarding shortness of breath/palpitations. When she goes up flights of stairs, she feels short of breath at the top. However, no clear-cut angina. No known coronary disease or myocardial infarction or cardiomyopathy. She has completed an echocardiogram and Holter. [facility] Medical History Cervical high risk HPV (human papillomavirus) test positive Fibromyalgia Elevated cholesterol Weight loss Karina's disease Non-toxic multinodular goiter Osteoarthritis of left hip Schatzki's ring Hiatal hernia Hx of migraines History of multinodular goiter IBS (irritable bowel syndrome) GERD (gastroesophageal reflux disease) Dysphagia Chronic pain syndrome Spondylosis, lumbar, with myelopathy Sacroiliitis Surgical History History of bilateral tubal ligation Hx of dilation and curettage Hx of arthroscopy of right knee History of esophagogastroduodenoscopy (EGD) Hx of colonoscopy History of cholecystectomy Family History Father Unknown family medical history Mother Arthritis Diverticulitis Gastritis Breast cancer Chronic asthma Adenomatous colon polyp HTN (hypertension) Maternal Grandmother Colon cancer Daughter Hypothyroid Daughter Traveling blood clot in leg Obesity Prediabetes Social History Household Members: Spouse Housing: House Are you a primary patient centered care specialist to a significant other at home: No Do you presently have visiting nurse or other home services: No Alcohol intake: never Patient Tobacco Use Status: Former Tobacco user Tobacco use type: Cigarette Years Smoked: 20 service: No Current occupational status: employed 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 History Menstrual Age of Menarche: 13 Review of Systems Const Denies weakness ENT Denies dizziness Card Denies chest pain, Denies chest pain with activity, Denies syncope, Denies rapid heart rate, Denies pedal edema, Denies edema, Denies leg edema, Denies lightheadedness, Reports palpitations, Denies dyspnea, Denies dyspnea on exertion and Denies orthopnea Resp Denies cough, Denies dyspnea and Denies dyspnea on exertion GI Denies hematochezia and Denies change in stool character Musc Denies abnormal gait, Denies muscle cramps, Denies muscle weakness, Denies numbness, Denies radiating pain into limb and Denies tingling Neuro Denies abnormal gait, Denies dizziness, Denies syncope, Denies numbness, Denies tingling and Denies weakness Endo Reports palpitations Physical Exam Vital Signs: Last Vital Signs Pulse 51 04/21/24 14:37 BP 100/78 04/21/24 14:37 BMI result Body Mass Index 22.6 Const General: comfortable and no acute distress Orientation/consciousness: patient oriented x3 HEENT Other: Unremarkable Head: Yes normal to inspection Neck Neck: Yes normal visual inspection Chest Chest palpation & inspection: normal inspection of the chest Resp Auscultation: clear to auscultation bilaterally Cardio Palpation: normal PMI Heart sounds: S1 normal heart sound present, S2 normal heart sound present, no gallops, no murmurs and no rubs GI Palpation (GI): Soft to palpation Back/Spine/Pelvis Other: unremarkable Skin General skin exam: no rashes or lesions noted Neuro General: patient oriented x3 Extrem General: Yes normal to inspection Psych Mental Status: mental status grossly normal Office Procedures EKG Details: EKG with sinus bradycardia at 51/Min; cannot exclude a septal infarct; [place]. [id number], Complete Assessment & Plan Assessment & Plan (1) Heart palpitations: Code(s): R00.2 - Palpitations Category: Medical (2) SOB (shortness of breath): Code(s): R06.02 - Shortness of breath Category: Medical Plan Cardiac studies reviewed. Echocardiogram with LVEF of 68%. No wall motion abnormalities. Normal diastolic function with normal filling pressures. Otherwise unremarkable. Holter monitor shows underlying sinus rhythm with an average rate of 61/Min; frequent sinus bradycardia; brief supraventricular runs. Palpitations reported by patient correlate with sinus tachycardia. Overall, palpitations possibly from the supraventricular ectopy but she also describes it during sinus rhythm/sinus tachycardia. Hence not clear. She has baseline sinus bradycardia and hence will not be able to tolerate any beta-blockers or calcium channel blockers. No indication for antiarrhythmics. With preserved LVEF on the echocardiogram, shortness of breath could be from deconditioning. At this time, reassurance only. If any clear-cut anginal-type symptoms, we will need re-evaluation. Advised her to contact us if she indeed gets chest pains symptoms. She understands. Coding Level of Care Code Est Pt Level 3 (63620) Diagnoses Heart palpitations R00.2 SOB (shortness of breath) R06.02 CPT Codes EKG - CPT: [id number]-[id number], Complete ([id number])
== END 2024-04-21 14:59 | disposition home or self-care (01) ==
PROVIDERS: PCP Registered Nurse; Visit Provider Internal Medicine
DX: R00.2 Palpitations (principal); R06.02 Shortness of breath
CPT/HCPCS: 93010; 99213

== ENCOUNTER → 2024-04-21 14:19 | Outpatient (BNVA) | payer OTHER, SELFPAY | PROVIDERS: PCP Registered Nurse; Visit Provider Internal Medicine | DX: R00.2 Palpitations (principal); R06.02 Shortness of breath; R94.31 Abnormal electrocardiogram [ECG] [EKG]; R00.1 Bradycardia, unspecified | CPT/HCPCS: 93005; 99212 ==

== ENCOUNTER 2024-05-08 13:38 | Outpatient (AMB) | payer OTHER, SELFPAY ==
--- NOTE | 2024-05-08 13:39 | MHC.OFFVIS ---
Vital Signs 05/08/24 13:40 Height 5 ft 3 in Weight 132 lb 4 oz BMI 23.4 BP 120/56 L Blood Pressure Location Rt brachial Position Sitting Pulse 71 Pulse Source Pulse Oximeter Pulse Oximetry (%) 99 Oxygen Delivery Method Room Air Intake Visit Reasons: Follow up After Injection Allergies No Known Allergies [No Known Allergies*] Allergy (Verified 05/08/24 13:42) HPI Comments Details: Adela is in my office today to discuss possibility of treatment of her right knee pain which is very severe. Last time she received Euflexxa intra-articular knee injection. The injection was complicated by vasovagal response patient was observed and treated in the office. She reported today that Euflexxa injection lasted only several weeks. Considering the complications injection brought up on the patient and not extensive pain relief I offered patient diagnostic ultrasound-guided femoral nerve block on the right. If this procedure will result in good pain relief for the patient I will consider sprint PNS stimulation to help pain in her knee for a longer period of time. The patient agreed with the plan. I will schedule her for injection as above in the operating room with minimal sedation and mostly observation by anesthesiologist with administration of anticholinergic medications. [facility] Medical History Cervical high risk HPV (human papillomavirus) test positive Fibromyalgia Elevated cholesterol Weight loss Karina's disease Non-toxic multinodular goiter Osteoarthritis of left hip Schatzki's ring Hiatal hernia Hx of migraines History of multinodular goiter IBS (irritable bowel syndrome) GERD (gastroesophageal reflux disease) Dysphagia Chronic pain syndrome Spondylosis, lumbar, with myelopathy Sacroiliitis Surgical History History of bilateral tubal ligation Hx of dilation and curettage Hx of arthroscopy of right knee History of esophagogastroduodenoscopy (EGD) Hx of colonoscopy History of cholecystectomy Family History Father Unknown family medical history Mother Arthritis Diverticulitis Gastritis Breast cancer Chronic asthma Adenomatous colon polyp HTN (hypertension) Maternal Grandmother Colon cancer Daughter Hypothyroid Daughter Traveling blood clot in leg Obesity Prediabetes Social History Household Members: Spouse Housing: House Are you a primary children's zoo caretaker to a significant other at home: No Do you presently have visiting nurse or other home services: No Alcohol intake: never Patient Tobacco Use Status: Former Tobacco user Tobacco use type: Cigarette Years Smoked: 20 service: No Current occupational status: employed 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 Alert and oriented. Mood and affect appropriate. Follows and participates in conversation appropriately. Respiratory effort is unlabored. No cough. Able to transition from sit to stand unassisted. Ambulates with bilaterally normal heel strike and toe off. Neck Other: Patient with decreased cervical ROM in all planes/especially with lateral rotations, worse on the left. Reports increased pain with cervical extension and flexion, worse with extension. Spurling compression test positive. Pain is unchanged by Spurling maneuver with retraction. Elvey's tension test positive on the left, with radiation of pain from neck to wrist and fingers. Lhermitte's test was negative. DTR intact, +1 left and +2 right. Patient demonstrated 5/5 right and 4/5 left motor strength of bilateral upper extremities. 2 + radial pulses. Significant tightness throughout left upper trapezius as well as TTP throughout bilateral upper trapezius muscles. No paravertebral tenderness over facet joints bilaterally. Neck: Yes full ROM, Yes no lymphadenopathy, No anterior neck swelling, Yes no JVD and No prominent dorsocervical fat pad Back/Spine/Pelvis Cervical Spine: No Lhermitte's sign positive, loss of normal cervical lordosis, cervical muscular tenderness, pain with cervical ROM, cervical spasm (left>right), No Cervical spine tenderness and No step off deformity Thoracic/Lumbar Spine: thoracic and lumbar spine normal to inspection, Lasegue's sign negative, straight leg raise negative bilaterally, pain with thoraco-lumbar ROM, No thoracic spinal tenderness and No lumbar spinal tenderness Extrem General: Yes capillary refill normal, Yes no clubbing, cyanosis or edema and Yes no calf tenderness Left lower extremity: knee (Limited ROM due to pain) Details: normal to inspection, tenderness Location: of the medial joint line and of the lateral joint line and crepitus; no swelling, no ecchymosis and no unusual warmth Assessment & Plan Assessment & Plan (1) Left knee pain: Code(s): M25.562 - Pain in left knee Category: Medical (2) Osteoarthritis of left knee: Code(s): M17.12 - Unilateral primary osteoarthritis, left knee Category: Medical (3) Right knee pain: Code(s): M25.561 - Pain in right knee Category: Medical (4) Arthritis of right knee: Code(s): M17.11 - Unilateral primary osteoarthritis, right knee Category: Medical Plan Euflexxa injection helped her pain however for the short period of time of several weeks. Possibility of treatment of her right knee pain with sprint PNS was considered today. I will schedule her for diagnostic ultrasound-guided femoral nerve block. I will schedule it under minimal sedation in the operating room with mostly administration of antianxiety medication and anticholinergics. With good results of ultrasound femoral nerve block I will offer the patient sprint PNS femoral nerve on the right. Coding Level of Care Code Est Pt Level 3 (89475) Diagnoses Left knee pain M25.562 Osteoarthritis of left knee M17.12 Right knee pain M25.561 Arthritis of right knee M17.11
[2024-05-08 13:40] VITALS: BP 120/56; PULSE 71; O2SAT 99; BMI 23.4
== END 2024-05-08 13:54 | disposition home or self-care (01) ==
PROVIDERS: PCP Registered Nurse; Visit Provider Anesthesiology
DX: M17.0 Bilateral primary osteoarthritis of knee (principal); M25.562 Pain in left knee; M25.561 Pain in right knee
CPT/HCPCS: 99213

== ENCOUNTER → 2024-05-08 13:38 | Outpatient (BNVA) | payer OTHER, SELFPAY | PROVIDERS: PCP Registered Nurse; Visit Provider Anesthesiology ==

== ENCOUNTER 2024-05-14 15:00 | Outpatient (AMB) | payer OTHER, SELFPAY ==
[2024-05-14 13:28] VITALS: BMI 22.0
--- NOTE | 2024-05-14 13:28 | MHC.OFFVISWM ---
VS Expanded 05/14/24 13:28 Height 5 ft 3 in Weight 124 lb 7 oz BMI 22.0 Intake Visit Reasons: (TV) s/p Diaphragmatic Hernia Repair 03/04/24 Allergies No Known Allergies [No Known Allergies*] Allergy (Verified 05/08/24 13:42) HPI Comments Details: Patient is a pleasant 64-year-old female who returns to the office today in follow-up. She is approximately 2 months post hiatal hernia repair on 03/04/2024. Weight today is 124.7 pounds with a BMI of 22. She states she is doing well. She is not having any GERD. She does report she doing well. She reports one day of mild heartburn after eating a pork chop with added too much pepper. Taking MVI daily. Taking tylenol as needed for chronic arthritis. Overall, she is very satisfied with the results of her procedure Meal plan: 1 rtd shake orgain 1 celebrate bar/tongan yogurt 5 forks protein and 5 forks veg drinking 48 oz water daily exercise plan: walking outside and active with her job. [facility] Medical History Cervical high risk HPV (human papillomavirus) test positive Fibromyalgia Elevated cholesterol Weight loss Karina's disease Non-toxic multinodular goiter Osteoarthritis of left hip Schatzki's ring Hiatal hernia Hx of migraines History of multinodular goiter IBS (irritable bowel syndrome) GERD (gastroesophageal reflux disease) Dysphagia Chronic pain syndrome Spondylosis, lumbar, with myelopathy Sacroiliitis Surgical History History of bilateral tubal ligation Hx of dilation and curettage Hx of arthroscopy of right knee History of esophagogastroduodenoscopy (EGD) Hx of colonoscopy History of cholecystectomy Family History Father Unknown family medical history Mother Arthritis Diverticulitis Gastritis Breast cancer Chronic asthma Adenomatous colon polyp HTN (hypertension) Maternal Grandmother Colon cancer Daughter Hypothyroid Daughter Traveling blood clot in leg Obesity Prediabetes Social History Household Members: Spouse Housing: House Are you a primary direct care specialist to a significant other at home: No Do you presently have visiting nurse or other home services: No Alcohol intake: never Patient Tobacco Use Status: Former Tobacco user Tobacco use type: Cigarette Years Smoked: 18 service: No Current occupational status: employed 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 Female 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 History Menstrual Age of Menarche: 13 Physical Exam Vital Signs: BMI result Body Mass Index 22.0 Telehealth Telehealth Telehealth Platform: Telephone Location of provider rendering services: practice address Location of patient: address on file Patient Identification confirmed using: Name, : Yes Telehealth method: voice only Patient verbally consented to treatment: Yes Patient verbally consented to billing insurance company: Yes Patient informed of any privacy concerns related to visit: Yes Minutes spent on Phone/Video with Pt.: 15 Assessment & Plan Assessment & Plan (1) Status post repair of paraesophageal diaphragmatic hernia: Code(s): Z98.890 - Other specified postprocedural states; Z87.19 - Personal history of other diseases of the digestive system Category: Medical Plan: Continue current meal plan. Continue exercises she is able. Return to the office in 1 month
== END 2024-05-14 15:19 | disposition home or self-care (01) ==
LOC: HO.HBS 15:00
PROVIDERS: PCP Registered Nurse; Visit Provider Physician Assistant Surgical
DX: Z98.890 Other specified postprocedural states (principal); Z87.19 Personal history of other diseases of the digestive system
CPT/HCPCS: 99024

== ENCOUNTER → 2024-05-14 15:00 | Outpatient (BNVA) | payer OTHER, SELFPAY | PROVIDERS: PCP Registered Nurse; Visit Provider Physician Assistant Surgical | DX: Z98.890 Other specified postprocedural states (principal); Z87.19 Personal history of other diseases of the digestive system ==

== ENCOUNTER 2024-06-13 08:27 | Outpatient (REF) | payer OTHER, SELFPAY ==
--- NOTE | ~2024-06-13 | XR_ITS ---
CLINICAL HISTORY: M25.512 - Pain in left shoulder 4 view left shoulder Comparison: CR/MT/SR - XR SHOULDER LT MIN 2V - 11/01/21 15:06 EDT Findings: No fractures or dislocations. [id number] osteoarthritic changes of the AC joint. No erosions. No radiopaque foreign body. IMPRESSION: 1. No acute findings This document has been electronically signed by: Diego Fan MD on 06/14/2024 05:38:17
--- OUTSIDE RECORDS SUMMARY | 2024-06-13 09:45 | XMS_ITS | Encounter Summary ---
Author Organization [employer] Address [address] [facility] [place] [address] Care Team Providers Care Customer Sales Representative Name Role Phone [facility] Primary Care Provider Reason for Visit * Reason Comments Med Refill Encounter Details Date Type Department Care Team ([facility] st Contact Info) Description 08/19/2023 Refill [facility] 230 [place] [address] [facility] 230 [place] [address] Fibromyalgia Social History Tobacco Use Types Packs/Day [...] documented as of this encounter Care Teams Customer Sales Representative Relationship Specialty Start Date End Date Tierney Goncalves FNP [address] [place] [address] PCP - General Family Medicine 12/27/21 documented as of this encounter
--- OUTSIDE RECORDS SUMMARY | 2024-06-13 09:45 | XMS_ITS | Encounter Summary ---
Author Organization [employer] Address [address] [facility] [address] 7t [place] [address] Care Team Providers Care Scout Leaser Name Role Phone Tierney Goncalves SIDEHAND Primary Care Provider [phone] Encounter Details Date Type Department Care Team (Late st Contact Info) Description 08/08/2023 Orders Only [facility] MEDICINE 230 [place] [address] ProviderEvon MD Social History Tobacco Use Types [...] documented as of this encounter Care Teams Scout Leaser Relationship Specialty Start Date End Date Tierney Goncalves FNP [address] [place] [address] PCP - General Family Medicine 12/27/21 documented as of this encounter
--- OUTSIDE RECORDS SUMMARY | 2024-06-13 09:45 | XMS_ITS | Encounter Summary ---
Author Organization [employer] Address [address] [place] [address] 7[place], [place] [address] Care Team Providers Care Ophthalmic Technician Name Role Phone [facility] Primary Care Provider [phone] Reason for Visit * Reason Comments Med Refill Encounter Details Date Type Department Care Team ([facility] st Contact Info) Description 07/21/2022 Refill [facility] 230 [place] [address] [facility] 230 [place] [address] Joint pain in both hands Social History [...] documented as of this encounter Care Teams Ophthalmic Technician Relationship Specialty Start Date End Date Tierney Goncalves FNP [address] [place] [address] PCP - General Family Medicine 12/27/21 documented as of this encounter
--- OUTSIDE RECORDS SUMMARY | 2024-06-13 09:45 | XMS_ITS | Encounter Summary ---
Author Organization [employer] Address [address] [facility] [place] [address] Care Team Providers Care Carton Forming Machine Tender Name Role Phone [facility] Primary Care Provider [phone] Reason for Visit * Reason Comments Med Refill Encounter Details Date Type Department Care Team ([facility] st Contact Info) Description 05/14/2024 Refill [facility] 230 [place] [address] [facility] 230 [place] [address] Migraine without aura, not refractory Social History [...] documented as of this encounter Care Teams Carton Forming Machine Tender Relationship Specialty Start Date End Date Tierney Goncalves FNP [address] [place] [address] PCP - General Family Medicine 12/27/21 documented as of this encounter
--- OUTSIDE RECORDS SUMMARY | 2024-06-13 09:45 | XMS_ITS | Encounter Summary ---
Author Organization [employer] Address 75 [facility] [place] [address] Care Team Providers Care International Manager Name Role Phone Tierney Goncalves EQUIPMENT ASSOCIATE Primary Care Provider Reason for Visit * Reason Onset Date Comments case clarification 07/31/2023 Encounter Details Date Type Department Care Team ([facility] st Contact Info) Description 07/31/2023 Telephone [facility] 230 [place] [address] Camron Rios DDS 230 [place], [place] [phone] case clarification Social History Tobacco Use Types [...] documented as of this encounter Care Teams International Manager Relationship Specialty Start Date End Date Tierney Goncalves FNP [address] [place] [address] PCP - General Family Medicine 12/27/21 documented as of this encounter
--- OUTSIDE RECORDS SUMMARY | 2024-06-13 09:45 | XMS_ITS | Encounter Summary ---
Author Organization [employer] Address [address] [facility] [address] 7t [place] [address] Care Team Providers Care Desulfurizer Operator Name Role Phone Tierney Goncalves [employer] Primary Care Provider [phone] Encounter Details Date Type Department Care Team (Late st Contact Info) Description 11/13/2023 Orders Only [facility] MED[facility]INE 230 [place] [address] ProviderEvon MD Social History Tobacco Use Types [...] documented as of this encounter Care Teams Desulfurizer Operator Relationship Specialty Start Date End Date Tierney Goncalves FNP [address] [place] [address] PCP - General Family Medicine 12/27/21 documented as of this encounter
--- OUTSIDE RECORDS SUMMARY | 2024-06-13 09:45 | XMS_ITS | Encounter Summary ---
Author Organization [employer] Address [address] [facility] 7t [place] [address] Care Team Providers Care Nuclear Chemistry Technician Name Role Phone Tierney Goncalves ENGRAVING PRESS OPERATOR Primary Care Provider [phone] Reason for Visit * Reason Comments Wrist Pain Encounter Details Date Type Department Care Team ([facility] st Contact Info) Description 06/05/2024 10:40 AM EST Office Visit [facility] 230 [place] [address] Emeka Benjamin MD 230 [place], [place] [phone] De Quervain's tenosynovitis, left (Primary Dx) Social [...] 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 Painwith flexion and extension of her thumb [...] as of this encounter Care Teams Nuclear Chemistry Technician Relationship Specialty Start Date End Date Tierney Goncalves FNP [address] [place] [address] PCP - General Family Medicine 12/27/21 documented as of this encounter
--- OUTSIDE RECORDS SUMMARY | 2024-06-13 09:45 | XMS_ITS | Encounter Summary ---
Author Organization [employer] Address [address] [place] [address] [place] [address] Care Team Providers Care Deputy United [place] Marshal Name Role Phone [facility] Primary Care Provider [phone] Reason for Visit * Reason Onset Date Comments Nurse Triage 06/05/2024 Encounter Details Date Type Department Care Team ([facility] st Contact Info) Description 06/05/2024 Telephone [facility] 230 [place] [address] [facility] 230 [place], [place] [phone] Nurse Triage Social History Tobacco Use Types [...] documented as of this encounter Care Teams Deputy United States Marshal Relationship Specialty Start Date End Date Tierney Goncalves FNP [address] [place] [address] PCP - General Family Medicine 12/27/21 documented as of this encounter
--- OUTSIDE RECORDS SUMMARY | 2024-06-13 09:45 | XMS_ITS | Encounter Summary ---
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
--- OUTSIDE RECORDS SUMMARY | 2024-06-13 09:45 | XMS_ITS | Encounter Summary ---
Author Organization [employer] Address [address] [place] [address] Care Team Providers Care Spring Crater Name Role Phone Tierney Goncalves Primary Care Provider [phone] Encounter Details Date Type Department Care Team ([facility] st Contact Info) Description 05/16/2022 Telephone [facility] 230 [place], [place] [phone] Tierney Goncalves FNP 230 [place] [address] Social History Tobacco Use Types Packs/Day Years [...] on filedocumented in this encounter Care Teams Spring Crater Relationship Specialty Start Date End Date Tierney Goncalves FNP [address] [place] [address] [place] [address] PCP - General Family Medicine 12/27/21 documented as of this encounter
--- OUTSIDE RECORDS SUMMARY | 2024-06-13 09:45 | XMS_ITS | Encounter Summary ---
Author Organization [employer] Address [address] [facility] [place] [address] Care Team Providers Care Manager Route Name Role Phone [facility] Primary Care Provider [phone] Reason for Visit * Reason Comments Med Refill Encounter Details Date Type Department Care Team ([facility] st Contact Info) Description 03/13/2023 Refill [facility] 230 [place] [address] [facility] 230 [place] [address] Social History Tobacco Use Types Packs/Day Years [...] documented as of this encounter Care Teams Manager Route Relationship Specialty Start Date End Date Tierney Goncalves FNP [address] [place] [address] PCP - General Family Medicine 12/27/21 documented as of this encounter
--- OUTSIDE RECORDS SUMMARY | 2024-06-13 09:45 | XMS_ITS | Encounter Summary ---
Author Organization [employer] Address [address] [facility] 7 [place] [address] Care Team Providers Care Dehairer Name Role Phone [facility] Primary Care Provider [phone] Reason for Visit * Reason Onset Date Comments Prior Authorization 05/16/2024 Encounter Details Date Type Department Care Team (Late st Contact Info) Description 05/16/2024 Telephone [facility] [address] [place] [address] [facility] [address] [place] [address] Prior Authorization Social History Tobacco Use Types [...] documented as of this encounter Care Teams Dehairer Relationship Specialty Start Date End Date Tierney Goncalves FNP [address] [place] [address] PCP - General Family Medicine 12/27/21 documented as of this encounter
--- OUTSIDE RECORDS SUMMARY | 2024-06-13 09:45 | XMS_ITS | Encounter Summary ---
Author Organization [employer] Address [address] [place] [address] [facility] [address] Care Team Providers Care Chimney Builder Name Role Phone [facility] Primary Care Provider [phone] Reason for Visit * Reason Onset Date Comments Medication Question 05/26/2024 Encounter Details Date Type Department Care Team ([facility] st Contact Info) Description 05/26/2024 Refill [facility] MEDICINE 230 [place] [address] [facility] 230 [place], [place] [phone] Social History Tobacco Use Types Packs/Day Years [...] documented as of this encounter Care Teams Chimney Builder Relationship Specialty Start Date End Date Tierney Goncalves FNP 230 [place] [address] PCP - General Family Medicine 12/27/21 documented as of this encounter
--- OUTSIDE RECORDS SUMMARY | 2024-06-13 09:45 | XMS_ITS | Clinical Summary ---
Author Organization [employer] Address [address] [facility] 7 [place] [address] Care Team Providers Care Fitness Director Name Role Phone Tierney Goncalves ANIMAL TRAINER Primary Care Provider Allergies No known active allergies Medications omeprazole [...] Negative EMB 09/01/22 ? ? Followed by [facility] PLANT RELIABILITY ENGINEER Mixed hyperlipidemia 05/26/2022 Overview (05/26/2022): ?? 03/2022 ASCVD 2.8% ?? Diet controlled Healthcare maintenance 04/02/2022 Overview (08/15/2023): Mammo: 02/2023 bi-rads 2 Pap: 05/2021 though [facility] PLANT RELIABILITY ENGINEER, NIL HPV +'colpo PADMINI 1, repeat co-testing due 09/2023 C-scope: 2016, has upcoming appointment BMD: Routine age 67 HCV Screen: Neg 2016 HIV Screen: Neg 2015 Immunizations: declines COVID booster today. Otherwise UTD Screening Labs: A1c-4.8, 2020 Assessment & Plan (04/02/2022 1:22 PM EST): Mammo: 02/2022 bi-rads 2, repeat 02/2023 Pap: 05/2021 though [facility] PLANT RELIABILITY ENGINEER, NIL HPV +, pt does not now [...] dysphagia and early satiety - Followed by [facility] GI with previously benign EGD w/ esophageal spasm, negative gastric emptying study, neg. H.pylori biopsy Osteoarthritis of facet joint of lumbar spine Overview (05/18/2022): - Hx of sacroilitis - Previously seen by [facility] ortho and pain mngmt; has received numerous steroid injections with minimal sx improvement. Has tried PT for various concerns without improvement. - Is not currently followed by ortho or pain mngmt ?? Non-toxic multinodular goiter 07/20/2017 Overview (05/18/2022): Benign multi-nodular goiter followed by [facility] endo. Per lats visit note 08/2021, patient to reconsider thyroidectomy if sx of dysphagia worsen; has follow up in 6 months - Per chart review pt was referred to [place] for possible thyroidectomy however pt does not have transportation. Insurance barriers limit more local access. -FNA of left mid pole nodule on 04/20/16 consistent with benign follicular nodule. 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 Per visit note plan to monitor q. 6 months and consider biopsy if WBC count < 2 or development of B sx Diffuse spasm of esophagus 05/17/2016 Fibromyalgia 04/28/2016 Overview (01/02/2023): ?? Duloxetine 40mg daily ?? Amitriptyline 10mg at bedtime ?? Chronic back pain, shoulder pain ?? Hx of sacroilitis ?? Previously seen by [facility] ortho and pain mngmt; has received numerous [...] Description 06/05/2024 10:40 AM EST Office Visit [facility] 230 [place] [address] Emeka Benjamin MD De Quervain's tenosynovitis, left (Primary Dx) 06/05/2024 Telephone [facility] 230 [place] [address] Tierney Goncalves FNP Nurse Triage 05/26/2024 Refill [facility] [address] [place] [address] Tierney Goncalves FNP 05/16/2024 Telephone [facility] [address] [place] [address] Tierney Goncalves FNP Prior Authorization 05/14/2024 Refill [facility] [address] [place] [address] Tierney Goncalves FNP Migraine without aura, not refractory 03/25/2024 Refill [facility] [address] [place] [address] Tierney Goncalves FNP Seasonal allergies 03/17/2024 Orders Only [facility] [address] [place] [address] Tierney Goncalves FNP from Last 3 Months [...] EST Narrative 03/25/2024 3:23 PM EST ? [facility] ? [address] ?[place] [address] ? Mammography Report ? Signed ? Patient: Flynn,Alba Y ?MR#: [id number] ? : 1960 ?Acct:[id number] ? Age/Sex: 64 / F ?ADM Date: 03/17/ ? Loc: HO.MAMMO ? Attending Dr: Tierney Pedro ANIMAL TRAINER ? Ordering Physician: Ivanna,Tierney ANIMAL TRAINER ?Results: 2Beni ?? gn Findings ? Date of Service: 03/17/ ?Follow Up: 1 Year From Orig ?? inal Mammogram ? Procedure(s): MM tomosynthesis screening BI ?? Accession Number(s): [id number] ? cc: Pedro,Tierney ANIMAL TRAINER ? EXAMINATION: ?? MM SCREENING DIGITAL BREAST [...] DD/ 1415 ? TD/TT: 03/17/24 1430 ? Air Control/Anti Air Warfare Officer: ? Procedure Note Omar, Rico - 03/25/2024 [facility] [address] [place] [address] Mammography Report Signed Patient: Adela Flynn YMR#: [id number] : 2Acct:[id number] Age/Sex: 64 / FADM Date: 03/17/24 Loc: HO.MAMMO Attending Dr: Tierney Goncalves ANIMAL TRAINER Ordering Physician: Tierney Goncalves FNPResults: 2Beni gn Findings Date of Service: 03/17/24Follow Up: 1 Year From Orig inal Mammogram Procedure(s): MM tomosynthesis screening BI Accession Number(s): [id number] cc: Tierney Goncalves ANIMAL TRAINER EXAMINATION: MM SCREENING DIGITAL BREAST TOMOSYNTHESIS, BILATERAL [...] 03/25/24 1520 DD/ 1415 TD/TT: 03/17/24 1430 Air Control/Anti Air Warfare Officer: [facility] ANIMAL TRAINER IMG BI PROCEDURES Final Resul t * (ABNORMAL) HM PAP/HPV (11/05/2023) Pap Smear 1. NILM 1. NILM HPV Detected(A ) Undetected, Indeterminate , Quantitative, Not Detected Historical Provider HEALTH MAINTENANCE Final Result * Hm Colonoscopy (03/06/2023 8:12 AM EST) Historical Provider HEALTH MAINTENANCE Final Result * Colposcopy (10/06/2022) Narrative Sandra Gregorio - 10/06/2022 [facility] IN CLINIC/BEDSIDE ORDERAB LES Final Result from Last 3 Months or Most Recently Relevant to Health Maintenance Insurance [facility] , [address] [place] [address] DENTAL - HSN PARTIAL (MEDICAID) Care Teams Fitness Director Relationship Specialty Start Date End Date Tierney Goncalves FNP [address] [place] [address] PCP - General Family Medicine 12/27/21
== END 2024-06-13 08:28 | disposition home or self-care (01) ==
LOC: HO.XRAY 08:27
PROVIDERS: PCP Registered Nurse; Visit Provider Nurse Practitioner Family
DX: M25.512 Pain in left shoulder (principal)
CPT/HCPCS: 73030

== ENCOUNTER 2024-06-13 08:27 | Outpatient (AMB) | payer OTHER, SELFPAY ==
--- NOTE | 2024-06-13 08:31 | A.OFFVIS_ITS ---
Vital Signs 06/13/24 08:38 Height 5 ft 3 in Weight 124 lb BMI 22.0 BP 130/58 L Blood Pressure Location Rt brachial Position Sitting Pulse 56 Pulse Source Pulse Oximeter Pulse Oximetry (%) 99 Oxygen Delivery Method Room Air Intake Visit Reasons: follow up - questions reg EMG results Intake Note: Pain today 10/07 Survey Operations Director Required: No Accompanied by: Self / Same As Patient Allergies No Known Allergies [No Known Allergies*] Allergy (Verified 06/13/24 08:36) HPI Comments Details: Patient presents today for follow up for persistent neck pain and left shoulder pain. She also reports chronic bilateral wrist and hand pain with associated numbness and tingling and recently received cortisone injection in left wrist through [facility] with good but temporary relief. Her recent upper extremities EMG study was normal. Patient reports neck pain has been better since January 2024 but reports worsening left shoulder pain with movements, activities, overhead reaches and sleeping on the left side. Denies previous left shoulder injections or surgery. Denies any recent trauma, injury or falls. She avoids NSAIDs due to GI upset and has been taking Tylenol Arthritis and heat application with minimal and temporary relief. Patient [place] [facility] 08/29/23-09/20/23 and completed 5-6 sessions with minimal improvement in functioning but no pain relief. Patient continues to endorse neck pain with movements associated with neck stiffness and spasms Denies any recent cough, cold, infection, fever or any other significant changes in medical history since last office visit PRIOR Dr. Azul 05/08/24: Adela is in my office today to discuss possibility of treatment of her right knee pain which is very severe. Last time she received Euflexxa intra-articular knee injection. The injection was complicated by vasovagal response patient was observed and treated in the office. She reported today that Euflexxa injection lasted only several weeks. Considering the complications injection brought up on the patient and not extensive pain relief I offered patient diagnostic ultrasound-guided femoral nerve block on the right. If this procedure will result in good pain relief for the patient I will consider sprint PNS stimulation to help pain in her knee for a longer period of time. The patient agreed with the plan. I will schedule her for injection as above in the operating room with minimal sedation and mostly observation by anesthesiologist with administration of anticholinergic medications. [facility] Medical History Cervical high risk HPV (human papillomavirus) test positive Fibromyalgia Elevated cholesterol Weight loss Karina's disease Non-toxic multinodular goiter Osteoarthritis of left hip Schatzki's ring Hiatal hernia Hx of migraines History of multinodular goiter IBS (irritable bowel syndrome) GERD (gastroesophageal reflux disease) Dysphagia Chronic pain syndrome Spondylosis, lumbar, with myelopathy Sacroiliitis Surgical History History of bilateral tubal ligation Hx of dilation and curettage Hx of arthroscopy of right knee History of esophagogastroduodenoscopy (EGD) Hx of colonoscopy History of cholecystectomy Family History Father Unknown family medical history Mother Arthritis Diverticulitis Gastritis Breast cancer Chronic asthma Adenomatous colon polyp HTN (hypertension) Maternal Grandmother Colon cancer Daughter Hypothyroid Daughter Traveling blood clot in leg Obesity Prediabetes Social History Household Members: Spouse Housing: House Are you a primary healthcare specialist to a significant other at home: No Do you presently have visiting nurse or other home services: No Alcohol intake: never Patient Tobacco Use Status: Former Tobacco user Tobacco use type: Cigarette Years Smoked: 18 service: No Current occupational status: employed 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 Alert and oriented. Mood and affect appropriate. Follows and participates in conversation appropriately. Respiratory effort is unlabored. No cough. Able to transition from sit to stand unassisted. Ambulates with bilaterally normal heel strike and toe off. Neck Other: Patient with decreased cervical ROM in all planes/especially with lateral rotations, worse on the left. Reports increased pain with cervical extension and flexion, worse with extension. Spurling compression test positive. Pain is unchanged by Spurling maneuver with retraction. Elvey's tension test positive on the left, with radiation of pain from neck to wrist and fingers. Lhermitte's test was negative. DTR intact, +1 left and +2 right. Patient demonstrated 5/5 right and 4/5 left motor strength of bilateral upper extremities. 2 + radial pulses. Significant tightness throughout left upper trapezius as well as TTP throughout bilateral upper trapezius muscles. No paravertebral tenderness over facet joints bilaterally. Neck: Yes full ROM, Yes no lymphadenopathy, No anterior neck swelling, Yes no JVD and No prominent dorsocervical fat pad Back/Spine/Pelvis Cervical Spine: No Lhermitte's sign positive, loss of normal cervical lordosis, cervical muscular tenderness, pain with cervical ROM, cervical spasm (left>right), No Cervical spine tenderness and No step off deformity Thoracic/Lumbar Spine: thoracic and lumbar spine normal to inspection, Lasegue's sign negative, straight leg raise negative bilaterally, pain with thoraco-lumbar ROM, No thoracic spinal tenderness and No lumbar spinal tenderness Extrem Left upper extremity: shoulder/upper arm (difficulty with overhead reach or reaching her back pockets on the left) Details: inspection abnormal, tenderness Location: of the A-C joint, over the biceps tendon and over the subacromial bursa, axillary nerve sensory function normal and crepitus; no ecchymosis, no deformity and no unsual warmth Results Reviewed Results Reviewed: MR CERVICAL SPINE WITHOUT CONTRAST 06/14/23 CLINICAL INFORMATION: Chronic neck pain with worsening radicular symptoms. COMPARISON: Cervical spine MRI 02/18/2016. FINDINGS: Straightening of the cervical lordosis. The vertebral body heights are maintained. There is moderate to severe disc volume loss at C4-C5 and C5-C6, progressed. Moderate disc volume loss at C3-C4 again noted. There are Modic type I endplate signal changes at C4-C5 and C5-C6. There is no additional bone marrow edema. There are no acute fractures. Craniocervical junction is unremarkable. Partially imaged intracranial compartment is unremarkable. Cervical arterial flow voids are maintained. Partially imaged multinodular thyroid gland is again noted which has been recently evaluated with thyroid ultrasound. C2-C3: A shallow disc protrusion mildly indents the ventral thecal sac. There is no foraminal stenosis. Findings are unchanged. C3-C4: Disc osteophyte mildly indents the ventral thecal sac. There is bilateral facet arthropathy. No significant central canal stenosis and no foraminal stenosis. C4-C5: A small central disc protrusion mildly indents the ventral thecal sac. Uncovertebral joint spurring and facet arthropathy result in worsening mild to moderate left-sided foraminal stenosis. C5-C6: Uncovertebral joint spurring and facet arthropathy result in worsening mild to moderate right-sided foraminal stenosis. No central canal and no left foraminal stenosis. Bilateral facet arthropathy. C6-C7: Slight annular disc bulge. Left greater then right facet arthropathy. No central canal stenosis. Mild foraminal encroachment bilaterally. C7-T1: Disc contour is normal. No central canal stenosis and no foraminal stenosis. IMPRESSION: - Multilevel cervical spondylosis. Spondylitic changes result in progressive mild to moderate left C4-C5 and progressive mild to moderate right C5-C6 foraminal stenosis. There is no severe central canal stenosis within the cervical spine. - Partially imaged multinodular thyroid gland is again noted which has been recently evaluated with thyroid ultrasound. XR knee LT 2V 07/24/22 IMPRESSION: 1. There is minimal osteoarthritic change of the medial joint space compartments of the bilateral knees. 2. No fracture, dislocation or joint effusion is seen. NE electromyogram (EMG); NE nerve conduction velocity 04/17/24 FINDINGS: All motor and sensory nerves tested showed normal latencies, amplitudes and conduction velocities. Concentric needle EMG was performed in selected muscles of the bilateral upper extremities. Study did not reveal signs of electric abnormalities as shown in the table above. IMPRESSION: 1. This is a normal study. 2. There is no electrodiagnostic evidence for median neuropathy, ulnar neuropathy, brachial plexopathy, or cervical radiculopathy. Assessment & Plan Assessment & Plan (1) Left shoulder pain: Code(s): M25.512 - Pain in left shoulder Category: Medical (2) Cervical spondylosis: Code(s): M47.812 - Spondylosis without myelopathy or radiculopathy, cervical region Category: Medical (3) Bilateral wrist pain: Code(s): M25.531 - Pain in right wrist; M25.532 - Pain in left wrist Category: Medical (4) Chronic pain syndrome: Code(s): G89.4 - Chronic pain syndrome Category: Medical (5) Muscle spasms of neck: Code(s): M62.838 - Other muscle spasm Category: Medical Plan Patient with continued axial neck pain. She completed PT without any significant improvement in her ADLs, functioning or sleep. Her recent EMG of upper extremities was normal. Will resubmit PA for Bilateral Diagnostic C4-C5-C6 MBB with local and fluoroscopy for potential peripheral nerve stimulation or RFA ablation, as well as therapeutic injections. Informational pamphlets were provided at previous visit. Expectations, risks and benefits were reviewed for both procedures. Patient is aware she will be contacted to schedule these procedures. Left shoulder xray to assess degree of arthritis and degenerative changes. Hand Specialist Referral to further evaluate chronic bilateral wrist pain. Reports recent cortisone injection at [facility] with good but temporary relief. Short script provided for oxycodone while patient awaits for xray and injec tions. Side effects and precautions were discussed with patient. All questions were answered and the patient is in agreement of plan. Follow-up after injections/xray results and sooner as needed. Orders: Orders XR shoulder LT min 2V Today M25.512 - Pain in left shoulder Referrals Hand Surgery Referral M25.531 - Pain in right wrist, M25.532 - Pain in left wrist Medications: New oxycodone Partial Fill upon patient request. 5 mg PO BID 10 days PRN 20 tabs 0RF pain M25.512 - Pain in left shoulder, M47.812 - Spondylosis without myelopathy or radiculopathy, cervical region naloxone 4 mg/actuation (Narcan) spray 1 dose into ONE nostril; alternate nostrils w each dose until help arrives 4 mg intranasal Q2M PRN 2 ea 0RF opioid overdose Coding Level of Care Code Est Pt Level 4 (57817) Complex EM visit Add On G2211 Diagnoses Left shoulder pain M25.512 Cervical spondylosis M47.812 Bilateral wrist pain M25.531; M25.532 Chronic pain syndrome G89.4 Muscle spasms of neck M62.838
[2024-06-13 08:38] VITALS: BP 130/58; PULSE 56; O2SAT 99; BMI 22.0
--- OUTSIDE RECORDS SUMMARY | 2024-06-13 08:43 | XMS_ITS | Encounter Summary ---
Author Organization [employer] Address [address] [place] [address] Care Team Providers Care Showroom Sales Assistant Name Role Phone Tierney Goncalves PUBLIC HEALTH VETERINARIAN Primary Care Provider [phone] Encounter Details Date Type Department Care Team (Late st Contact Info) Description 11/13/2023 Orders Only [facility] MED[facility]INE [address] [place] [address] ProviderEvon MD Social History Tobacco Use Types Packs/Day Years Used Date Smoking Tobacco: Former Cigarettes Q uit: 2002 Passive Smoke Exposure: Never Smokeless Tobacco: Former Alcohol Use Standard Drinks/Week Comments Never 0 (1 standard drink = 0.6 oz pur e alcohol) Depression Answer Date Recorded Patient Health Questionnaire-9 Score 0 05/16/2023 Patient Health Questionnaire-9 Score 0 05/16/2023 Last PHQ-9: Questionnaire Data Not on file 0 05/16/2023 Housing Stability Answer Date Recorded What is your housing situation today? I have dale hernandez 02/15/[address] you li ve. Do you have problems with any of the following? None of the above 02/15/2023 Food Insecurity Answer Date Recorded Within the past 12 months, y ou worried that your food would run out before you got money to buy more: Never True 02/15/2023 Within the past 12 months,th e food you bought just didn't last and you didn't have enough money to get more: Never True Transportation Answer Date Recorded In the past 12 months, has l ack of transportation kept you from medical appts, meetings, work or from getting things needed for daily living? No 02/15/2023 Utilities Answer Date Recorded In the past 12 months, has t he electric, gas, oil or water company threatened to shut off services in your home? No 02/15/2023 Depression Answer Date Recorded Patient Health Questionnaire-2 Score 0 05/16/2023 Comments Unknown Sex and Gender Information Value Date Recorded Sex Assigned at Female 02/27/2022 10:15 AM EDT Legal Sex Female 10:15 AM EDT Gender Identity Female 02/27/2022 10:15 AM EDT Sexual Orientation Straight 02/27/2022 10 :15 AM EDT documented as of this encounter Plan of Treatment Not on file documented as of this encounter Procedures Procedure Name Priority Date/Time Associated Diagnosis Comments HM COLONOSCOPY Routine 03/06/2023 8:12 AM EST documented in this encounter Results * Hm Colonoscopy (03/06/2023 8:12 AM EST) us Historical Provider HEALTH MAINTENANCE Final Result documented in this encounter Visit Diagnoses Not on filedocumented in this encounter Additional Health Concerns Assessment Noted Time PHQ-9 Depression Total Score: 0 05/16/19 24 3:22 PM EST documented as of this encounter Care Teams Showroom Sales Assistant Relationship Specialty Start Date End Date Tierney Goncalves FNP [address] [place] [id number] PCP - General Family Medicine 12/27/21 documented as of this encounter
--- OUTSIDE RECORDS SUMMARY | 2024-06-13 08:43 | XMS_ITS | Encounter Summary ---
Author Organization [employer] Address [address] [place] [address] Care Team Providers Care Distance Education Teacher Name Role Phone Tierney Goncalves MEDICAL RESEARCH ASSISTANT Primary Care Provider [phone] Encounter Details Date Type Department Care Team ([facility] st Contact Info) Description 09/07/2023 Telephone [facility]ULT D[facility] [address] [place], [place] [phone] Camron Rios DDS [address] [place], [place] [phone] Social History Tobacco Use Types Packs/Day Years [...] AM EDT documented as of this encounter Miscellaneous Notes * Telephone Encounter - Kaye Barreto - 09/07/2023 9:41 AM EDT Patient calling to make apt to belt picker parcles documented in this encounter Plan of Treatment Not on file documented as of this encounter Visit Diagnoses Not on filedocumented in this encounter Additional Health Concerns Assessment Noted Time PHQ-9 Depression Total Score: 0 05/16/19 24 3:22 PM EST documented as of this encounter Care Teams Distance Education Teacher Relationship Specialty Start Date End Date Tierney Goncalves FNP [address] [place] [id number] PCP - General Family Medicine 12/27/21 documented as of this encounter
--- OUTSIDE RECORDS SUMMARY | 2024-06-13 08:43 | XMS_ITS | Encounter Summary ---
Author Organization [employer] Address [address] [facility] [address] [facility] [address] [place] [address] Care Team Providers Care Doctor Of Radiology Name Role Phone Tierney Goncalves SAMPLE MOUNTER Primary Care Provider [phone] Reason for Visit * Reason Onset Date Comments case clarification 07/31/2023 Encounter Details Date Type Department Care Team ([facility] st Contact Info) Description 07/31/2023 Telephone [facility] ADULT [facility] [address] [place] [address] Camron Rios DDS [address] [place], [place] [phone] case clarification Social History Tobacco Use Types Packs/Day Years [...] is your housing situation today? I have daledriss hernandez 02/15/[address] you [...] encounter Miscellaneous Notes * Telephone Encounter - Hazel Castaneda - 07/31/2023 1:51 PM EDT Frank from [employer] called wanting to clarify instructions. Add clasp to tooth #9 but because its an anterior tooth is it a metal clasp or clear clasp? Pls contact lab for clarification documented in this encounter Plan of Treatment Not on file documented as of this encounter Visit Diagnoses Not on filedocumented in this encounter Additional Health Concerns Assessment Noted Time PHQ-9 Depression Total Score: 0 05/16/19 24 3:22 PM EST documented as of this encounter Care Teams Doctor Of Radiology Relationship Specialty Start Date End Date Tierney Goncalves FNP [address] [place] [id number] PCP - General Family Medicine 12/27/21 documented as of this encounter
--- OUTSIDE RECORDS SUMMARY | 2024-06-13 08:43 | XMS_ITS | Encounter Summary ---
Author Organization [employer] Address [address] [place] [address] Care Team Providers Care Senior Integration Developer Name Role Phone Tierney Goncalves FREIGHT CAR BUILDER Primary Care Provider [phone] Encounter Details Date Type Department Care Team (Late st Contact Info) Description 08/08/2023 Orders Only [facility] [address] [place] [address] ProviderEvon MD Social History Tobacco Use Types [...] Date/Time Associated Diagnosis Comments HM COLONOSCOPY Routine 07/11/2016 8:10 AM EDT documented in this encounter Results * Hm Colonoscopy (07/11/2016 8:10 AM EDT) us Historical Provider HEALTH MAINTENANCE Final Result documented in this encounter Visit Diagnoses Not on filedocumented in this encounter Additional Health Concerns Assessment Noted Time PHQ-9 Depression Total Score: 0 05/16/19 24 3:22 PM EST documented as of this encounter Care Teams Senior Integration Developer Relationship Specialty Start Date End Date Tierney Goncalves FNP [address] [place] [id number] PCP - General Family Medicine 12/27/21 documented as of this encounter
--- OUTSIDE RECORDS SUMMARY | 2024-06-13 08:43 | XMS_ITS | Encounter Summary ---
Author Organization [employer] Address [address] [facility] [address] [place] [address] Care Team Providers Care Milk Inspector Name Role Phone [facility] Primary Care Provider [phone] Reason for Visit * Reason Comments Med Refill Encounter Details Date Type Department Care Team ([facility] st Contact Info) Description 08/19/2023 Refill [facility] MEDICINE [address] [place] [address] [facility] [address] [place] [address] Fibromyalgia Social History Tobacco Use Types Packs/Day Years [...] documented as of this encounter Visit Diagnoses Diagnosis Fibromyalgia Unspecified myalgia and myositis documented in this encounter Additional Health Concerns Assessment Noted Time PHQ-9 Depression Total Score: 0 05/16/19 24 3:22 PM EST documented as of this encounter Care Teams Milk Inspector Relationship Specialty Start Date End Date Tierney Goncalves FNP [address] [place] [id number] PCP - General Family Medicine 12/27/21 documented as of this encounter
--- OUTSIDE RECORDS SUMMARY | 2024-06-13 08:43 | XMS_ITS | Encounter Summary ---
Author Organization [employer] Address [address] [facility] [address] [place] [address] Care Team Providers Care Nuclear Station Operator Name Role Phone Tierney Goncalves GROUTER HELPER Primary Care Provider [phone] Reason for Visit * Reason Comments Wrist Pain Encounter Details Date Type Department Care Team ([facility] st Contact Info) Description 06/05/2024 10:40 AM EST Office Visit [facility] [address] [place] [address] Emeka Benjamin MD [address] [place], [place] [phone] De Quervain's tenosynovitis, left (Primary Dx) Social History Tobacco Use Types Packs/Day Years [...] AM EDT documented as of this encounter Last Filed Vital Signs Vital Sign Reading Time Taken Comments Blood Pressure 113/69 06/05/2024 10:32 AM EST Pulse 63 06/05/2024 10:32 AM EST Temperature 36.4 ??C (97.5 ??F) 06/05/2024 10:[address] Respiratory Rate 16 06/05/2024 10:32 AM EST Oxygen Saturation 99% 06/05/2024 10:32 AM EST Inhaled Oxygen Concentration - - Weight 59.7 kg (131 lb 9.6 oz) 06/05/2024 10:32 AM EST Height - - Body Mass Index 23.31 01/14/2024 2:20 PM EDT documented in this encounter Progress Notes * Emeka Benjamin MD - 06/05/2024 10:40 AM EST Subjective History was provided by the patient. Adela Flynn is a 64 y.o. female who presents for evaluation of left wrist pain for 4 weeks. 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 Painwith flexion and extension of her thumb at the wrist area. Denies swelling. Denies F/C. Patient is left-hand dominant. Known history of multiple joint pain. Followed by Pain Management. Previously tolerated corticosteroid injections (last was >1 year ago). Never had a corticosteroid injection onher wrist. Objective Vitals: 06/05/24 1032 BP: 113/69 BP Location: Left arm Patient Position: Sitting BP Cuff Size: Adult Pulse: 63 Resp: 16 Temp: 97.5 ??F (36.4 ??C) TempSrc: Temporal SpO2: 99% Weight: 131 lb 9.6 oz (59.7 kg) Physical Exam Vitals reviewed. Constitutional: Appearance: Normal appearance. She is normal weight. HENT: Mouth/Throat: Pharynx: Oropharynx is clear. Eyes: Conjunctiva/sclera: Conjunctivae normal. Pulmonary: Effort: Pulmonary effort is normal. Musculoskeletal: General: Tenderness (left lateral wrist area; positive Taurus test) present. Cervical back: Neck supple. Skin: General: Skin is warm and dry. Neurological: General: No focal deficit present. Mental Status: She is alert and oriented to person, place, and time. Psychiatric: Mood and Affect: Mood normal. Behavior: Behavior normal. Adela was seen today for wrist pain. Diagnoses and all orders for this visit: De Quervain's tenosynovitis, left (Primary) Patient with clinical presentation of left DeQuervain's tenosynovitis (dominant hand) No deformity on exam No clinical evidence of infection Discussed multiple treatment options including oral, topical, and injectable options Patient has been using topical Lidocaine without improvement Would like to pursue a corticosteroid injection (previously tolerated well) Discussed risks, benefits, and alternatives of the procedure Informed consent obtained The area was sterily prepared with Betadine swab x3 0.25mL 1% Xylocaine infiltrated to the area for local anesthetic A mixture of Kenalog (10mg) + 0.5mL Xylocaine (1%) administered to the left lateral wrist area Patient tolerated the procedure well without complications Advised to monitor for any swelling, bleeding, increased pain, fever, chills, or any other concerns Left wrist/thumb spica splint dispensed Indications for UC/ER use reviewed documented in this encounter Plan of Treatment Not on file documented as of this encounter Visit Diagnoses Diagnosis De Quervain's tenosynovitis, left- Primary documented in this encounter Administered Medications Inactive Administered Medications - up to 3 most recent administrations Medication Order MAR Action Action Date Dose Rate Site lidocaine (Xylocaine) 1 % injection 7.5 mg 7.5 mg (0.75 mL), Injection, Once, On Kacie 06/05/24 at 1130, For 1 dose, Used 0.25mL for local anesthesia; 0.5mL used as a mixture with Kenalog.Indications:De Quervain's tenosynovitis, left Given 06/05/2024 11:30 AM EST 7.5 mg triamcinolone acetonide (Kenalog-40) injection 10 mg 10 mg, Intra-articular, Once, On Kacie 06/05/24 at 1130, For 1 dose, Used 10mg out of the 40mg vial (the rest of the medication was discarded)Indications:De Quervain's tenosynovitis, left Given 06/05/2024 11:30 AM EST 10 mg documented in this encounter Additional Health Concerns Assessment Noted Time PHQ-9 Depression Total Score: 0 05/16/19 24 3:22 PM EST documented as of this encounter Care Teams Nuclear Station Operator Relationship Specialty Start Date End Date Tierney Goncalves FNP [address] [place] [id number] PCP - General Family Medicine 12/27/21 documented as of this encounter
--- OUTSIDE RECORDS SUMMARY | 2024-06-13 08:44 | XMS_ITS | Encounter Summary ---
Author Organization [employer] Address [address] [place] [address] [address], [place] [address] Care Team Providers Care Appraisal Analyst Name Role Phone [facility] Primary Care Provider Reason for Visit * Reason Onset Date Comments Nurse Triage 06/05/2024 Encounter Details Date Type Department Care Team ([facility] st Contact Info) Description 06/05/2024 Telephone [facility] [address] [place] [address] [facility] [address] [place], [place] [phone] Nurse Triage Social History Tobacco Use Types Packs/Day Years [...] encounter Miscellaneous Notes * Telephone Encounter - Matthew Singh - 06/05/2024 8:41 AM EST Symptom: Hand or Wrist Pain - Not From Injury Outcome: Schedule an urgent appointment (within 1 hour) or talk to a nurse or provider soon Reason: Severe pain now The caller accepted this outcome. documented in this encounter Plan of Treatment Not on file documented as of this encounter Visit Diagnoses Not on filedocumented in this encounter Additional Health Concerns Assessment Noted Time PHQ-9 Depression Total Score: 0 05/16/19 24 3:22 PM EST documented as of this encounter Care Teams Appraisal Analyst Relationship Specialty Start Date End Date Tierney Goncalves FNP [address] [place] [id number] PCP - General Family Medicine 12/27/21 documented as of this encounter
--- OUTSIDE RECORDS SUMMARY | 2024-06-13 08:44 | XMS_ITS | Encounter Summary ---
Author Organization [employer] Address [address] [facility] [address] [facility] [place] [address] Care Team Providers Care Bsa/Aml Compliance Officer Name Role Phone [facility] Primary Care Provider [phone] Reason for Visit * Reason Comments Med Refill Encounter Details Date Type Department Care Team ([facility] st Contact Info) Description 03/13/2023 Refill [facility] [address] [place] [address] [facility] [address] [place] [address] Social History Tobacco Use Types Packs/Day Years Used Date Smoking Tobacco: Former Cigarettes Q uit: 2002 Passive Smoke Exposure: Never Smokeless Tobacco: Former Alcohol Use Standard Drinks/Week Comments Never 0 (1 standard drink = 0.6 oz pur e alcohol) Depression Answer Date Recorded Patient Health Questionnaire-9 Score 0 12/12/2022 Housing Stability Answer Date Recorded What is [...] Date Recorded Patient Health Questionnaire-2 Score 0 12/12/2022 Comments Unknown Sex and Gender Information Value [...] Noted Time PHQ-9 Depression Total Score: 0 12/13/19 23 2:06 PM EDT documented as of this encounter Care Teams Bsa/Aml Compliance Officer Relationship Specialty Start Date End Date Tierney Goncalves FNP [address] [place] [phone] PCP - General Family Medicine 12/27/21 documented as of this encounter
--- OUTSIDE RECORDS SUMMARY | 2024-06-13 08:44 | XMS_ITS | Clinical Summary ---
Author Organization [employer] Address [address] [facility] 7 [place] [address] Care Team Providers Care Cullet Trucker Name Role Phone Tierney Goncalves PROJECT COORDINATOR Primary Care Provider [phone] Allergies No known active allergies Medications omeprazole (PriLOSEC) [address] capsule Take 1 capsule by mouth. Active Diclofenac Sodium 1 % gelIndications: Joint pain in both hands Apply topically to affected areas twice daily 150 g 1 3 Active capsaicin (Zostrix) 0.025 % creamIndication s:Joint pain in both hands APPLY TOPICALLY TWICE DAILY TO THE AFFECTED AREA 60 g 3 Active lidocaine (Xylocaine) 5 % ointmentIndicat ions:Fibromyalg ia Apply topically in the morning. APPLY TOPICALLY TO THE AFFECTED AREA 1 -4 TIMES EVERY DAY IF NEEDED 60 g 1 3 Active DULoxetine (Cymbalta) [address] capsuleIndicati ons:Fibromyalgi a TAKE ONE CAPSULE BY MOUTH IN THE MORNING DO NOT CRUSH OR CHEW 90 capsule 3 4 Active acetaminophen (Tylenol 8 Hour) 650 MG ER tablet TAKE 1 TABLET BY MOUTH EVERY 8 HOURS NEEDED. SWALLOW WHOLE WITH WATER. DO NOT BREAK, CRUSH, DISSOLVE AND/ OR CHEW 60 tablet 1 4 Active amitriptyline (Elavil) 10 MG tabletIndicatio ns:Fibromyalgia TAKE 1/2 TABLET BY MOUTH AT BEDTIME 15 tablet 3 4 Active ibuprofen 800 MG tablet TAKE 1 TABLET BY MOUTH EVERY 8 HOURS NEEDED FOR MILD PAIN 45 tablet 1 4 Active diphenhydrAMINE (BENADryl) 25 MG capsuleIndicati ons:Seasonal allergies TAKE 1 CAPSULE BY MOUTH AT NIGHT NEEDED 30 capsule 1 4 Active topiramate 50 MG tabletIndicatio ns:Migraine without aura, not refractory TAKE 1 TABLET BY MOUTH EVERY MORNING 30 tablet 3 5 Active DULoxetine (Cymbalta) [address] capsule Take 1 capsule (20 mg) by mouth 2 times daily. Do not crush or chew. 180 capsule 3 5 05/26/19 26 Active Hospital, Clinic, or Other Facility Administered Medication Ordered Dose Route Frequency Start Date End Date Status lidocaine (Xylocaine) 1 % injection 7.5 mgIndications:De Quervain's tenosynovitis, left 7.5 mg IJ Once 06/05/2024 06/05/2024 Ended triamcinolone acetonide (Kenalog-40) injection 10 mgIndications:De Quervain's tenosynovitis, left 10 mg IX Once 06/05/2024 06/05/2024 Ended Active Problems Problem Noted Date Diagnosed Date Ill-fitting dentures 10/08/2023 Partially edentulous maxilla 02/28/2023 Generalized gingival recession 02/21/2023 Partial edentulism 02/21/2023 Atrophy of edentulous mandibular alveolar ridge 01/04/2023 Abnormal Pap smear of cervix 01/02/2023 Overview (01/02/2023): ?? 09/2022- colpo w/ PADMINI 1 repeat co-testing [address] Chatterjee Abnormal uterine bleeding (AUB) 12/12/2022 Overview (12/12/2022): ? ? Negative EMB 09/01/22 ? ? Followed by [facility] Mixed hyperlipidemia 05/26/2022 Overview (05/26/2022): ?? 03/2022 ASCVD 2.8% ?? Diet controlled Healthcare maintenance 04/02/2022 Overview (08/15/2023): Mammo: 02/2023 bi-rads 2 Pap: 05/2021 though [facility], NIL HPV +'colpo PADMINI 1, repeat co-testing due 09/2023 C-scope: 2016, has upcoming appointment BMD: Routine age 67 HCV Screen: Neg 2016 HIV Screen: Neg 2015 Immunizations: declines COVID booster today. Otherwise UTD Screening Labs: A1c-4.8, 2020 Assessment & Plan (04/02/2022 1:22 PM EST): Mammo: 02/2022 bi-rads 2, repeat 02/2023 Pap: 05/2021 though [facility], NIL HPV +, pt does not now what follow up is scheduled with Dr. Chatterjee C-scope: 2016 BMD: Routine age 67 HCV Screen: Neg 2015 HIV Screen: Neg 2015 Immunizations: Accepts flu, declines COVID booster today. Otherwise UTD Screening Labs: A1c-4.8, 2020 Lipids: Ordered today CMP: Ordered today Migraine without aura, not refractory 03/16/2022 Overview (05/26/2022): ?? Topiramate 50mg for prevention Osteoarthritis of right knee 04/25/2019 Dysphagia 10/03/2018 Overview (05/16/2023): Hx of persistent dysphagia and early satiety - Followed by [facility] with previously benign EGD w/ esophageal spasm, negative gastric emptying study, neg. H.pylori biopsy Osteoarthritis of facet joint of lumbar spine Overview (05/18/2022): - Hx of sacroilitis - Previously seen by [facility] ortho and pain mngmt; has received numerous steroid injections with minimal sx improvement. Has tried PT for various concerns without improvement. - Is not currently followed by ortho or pain mngmt ?? Non-toxic multinodular goiter 07/20/2017 Overview (05/18/2022): Benign multi-nodular goiter followed by [facility] end[facility]. Per lats visit note 08/2021, patient to reconsider thyroidectomy if sx of dysphagia worsen; has follow up in 6 months - Per chart review pt was referred to [place] for possible thyroidectomy however pt does not have transportation. Insurance barriers limit more local access. -FNA of left mid pole nodule on 04/20/16 consistent with benign follicular nodule. 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 Per visit note plan to monitor q. 6 months and consider biopsy if WBC count < 2 or development of B sx Diffuse spasm of esophagus 05/17/2016 Fibromyalgia 04/28/2016 Overview (01/02/2023): ?? Duloxetine 40mg daily ?? Amitriptyline 10mg at bedtime ?? Chronic back pain, shoulder pain ?? Hx of sacroilitis ?? Previously seen by [facility]o and pain mngmt; has received numerous steroid injections with minimal sx improvement. Has tried PT for various concerns without improvement. ?? Negative ESR, CRP, negative CCP antibodies. Negative hand x-rays Assessment & Plan (01/02/2023 1:44 PM EDT): ?? Encouraged daily walking ?? Continue current medication regimen ?? Will refer back to pain mngm re chronic neck pain ?? Encouraged acupuncture clinic Assessment & Plan (09/17/2022 12:48 PM EDT): ? ? Continue duloxetine 40mg daily ? ? INCREASE amitryptiline to 1 full tablet daily ? ? 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 12/07/2021 Trochanteric bursitis 12/08/20162021 Schatzki's ring of distal esophagus 04/21/2016 04/02/2022 Menopausal flushing 02/28/2016 04/02/20 Lumbar back pain 2016 04/02/2022 Neck pain 2016 04/02/2022 Encounters Date Type Department Care Team Description 06/05/2024 10:40 AM EST Office Visit [facility] [address] [place] [address] Emeka Benjamin MD De Quervain's tenosynovitis, left (Primary Dx) 06/05/2024 Telephone [facility] [address] [place] [address] Tierney Goncalves FNP Nurse Triage 05/26/2024 Refill [facility] [address] [place] [address] Tierney Goncalves FNP 05/16/2024 Telephone [facility] [address] [place] [address] Tierney Goncalves FNP Prior Authorization 05/14/2024 Refill [facility] [address] [place] [address] Tierney Goncalves FNP Migraine without aura, not refractory 03/25/2024 Refill [facility] [address] [place] [address] Tierney Goncalves FNP Seasonal allergies 03/17/2024 Orders Only [facility] [address] [place] [address] Tierney Goncalves FNP from Last 3 Months Immunizations Name Administration Dates Next Due Influenza injectable quadriv alent IIV4 with preservative 2016 Influenza injectable quadriv alent preservative free 02/21/2023,02/18/2021,02/20/2020,2018,02/24/2018 Influenza, seasonal, injecta ble, preservative free 01/14/2024,03/31/2022 Moderna Covid-19 Vaccine 12+ 09/15/2020,08/19/19 Moderna Covid-19 Vaccine 6+ Bivalent 09/06/2022 Pfizer Covid-19 Vaccine 12+ 02/21/2023 Tdap 10/12/2014 Zoster, Recombinant 07/26/2021,05/20/2021 Social History Tobacco Use Types Packs/Day Years Used Date Smoking Tobacco: Former Cigarettes Q uit: 2002 Passive Smoke Exposure: Never Smokeless Tobacco: Former Tobacco Cessation:Counseling Given: Not Answered Alcohol Use Standard Drinks/Week Comments Never 0 [...] Orientation Straight 02/27/2022 10 :15 AM EDT Last Filed Vital Signs Vital Sign Reading [...] 9.6 oz) 06/05/2024 10:32 AM EST Height 160 cm (5' 3 ) 01/14/2024 2:20 PM EDT Body Mass Index 23.31 01/14/2024 2:20 PM EDT Plan of Treatment Health Maintenance Due Date Last Done Comments CT Colonography 1962 FIT DNA/Cologuard 1962 FIT 1962 FOBT 1960 Sigmoidoscopy 1962 Alcohol/Substance Use Screening 1974 Hepatitis A Vaccines (1 of 2 - Risk 2-dose series) 1981 Pneumococcal Vaccine: 50+ Years (1 of 2 - PCV) 1981 Dental X-Ray: Bitewings 05/07/2016 05/06/19 16, 11/02/2014, 08/07/2013 RSV Patients and Patients Aged 60 years or older (1 - Risk 60-74 years 1-dose series) 2022 Dental Oral Exam 07/06/2023 01/04/2023, 03/2021, 05/06/2015, Additional history exists Dental Prophylaxis 08/24/2023 02/21/2023, 0 11/15/2015, 05/06/2015, Additional history exists Colonoscopy 11/06/2023 03/06/2023, 06/28, 07/11/2016 Colorectal Cancer Screening 11/06/2023 Colposcopy 11/06/2023 10/06/2022 COVID-19 Vaccine ( season) 2023 02/21/2023, 09/06/2022, 09/15/2020, Additional history exists Depression Screening 05/16/2024 05/16/2023, 05/16/19 24 SDOH Screening 05/16/2024 05/16/2023 DTaP/Tdap/Td Vaccines (2 - Td or Tdap) 10/12/2024 10/12/2014 Cervical Cancer Screening 11/04/2024 HPV/Cotest 11/04/2024 11/05/2023, 08/28/2022 Pap Smear 11/04/2024 11/05/2023, 05/0 04/2022, 07/04/2021 Tobacco Screening 01/16/2025 01/17/2024 Mammogram 03/17/2025 03/17/2024, 02/28, 03/15/2022, Additional history exists Dental X-Ray: Full Mouth 01/05/2026 023, 07/09/2020, 08/07/2013 Zoster Vaccines Completed 07/26/2021, 05/20/2021 Influenza Vaccine Completed 01/14/2024, , 03/31/2022, Additional history exists HIB Vaccines Aged Out No longer eligi ble based on patient's age to complete this topic HIV Screening Discontinued HPV Vaccines Aged Out No longer eligi ble based on patient's age to complete this topic Hepatitis B Vaccines Discontinued Hepatitis C Screening Discontinued IPV Vaccines Aged Out No longer eligi ble based on patient's age to complete this topic Meningococcal Vaccine Aged Out No tal anel eligible based on patient's age to complete this topic RSV under 20 months Aged Out No longe r eligible based on patient's age to complete this topic Rotavirus Vaccines Aged Out No longer eligible based on patient's age to complete this topic Procedures Procedure Name Priority Date/Time Associated Diagnosis Comments BI MAMMOGRAM SCREENING TOMOSYNTHESIS BILATERAL Routine 03/17/2024 2:15 PM EST HM PAP/HPV Routine 11/05/2023 HM COLONOSCOPY Routine 03/06/2023 8:12 AM EST PROPHYLAXIS - ADULT Routine 02/21/2023 2 :00 PM EDT Generalized gingival recession Missing teeth, acquired PANORAMIC RADIOGRAPHIC IMAGE Routine 01/04/2023 8:00 AM EDT PERIODIC ORAL EVALUATION - ESTABLISHED PATIENT Routine 01/04/2023 8:00 AM EDT COLPOSCOPY Routine 10/06/2022 BITEWINGS - 2 RADIOGRAPHIC IMAGES Routine 05/06/2015 12:00 AM EST from Last 3 Months or Most Recently Relevant to Health Maintenance Results * BI Mammogram Screening Tomosynthesis Bilateral (03/17/2024 2:15 PM EST) Anatomical Region Laterality Modality Breast Bilateral Mammography 03/17/2024 2:15 PM EST Narrative 03/25/2024 3:23 PM EST ? [facility] ? [address] ?[place] [id number] ? Mammography Report ? Signed ? Patient: Flynn,Alba Y ?MR#: [id number] ? : 1960 ?Acct:[id number] ? Age/Sex: 64 / F ?ADM Date: 03/17/ ? Loc: HO.MAMMO ? Attending Dr: Tierney Robbins PROJECT COORDINATOR ? Ordering Physician: Ivanna,Tierney PROJECT COORDINATOR ?Results: 2Beni ?? gn Findings ? Date of Service: 03/17/ ?Follow Up: 1 Year From Orig ?? inal Mammogram ? Procedure(s): MM tomosynthesis screening BI ?? Accession Number(s): [id number] ? cc: Robbins,Tierney PROJECT COORDINATOR ? EXAMINATION: ?? MM SCREENING DIGITAL BREAST TOMOSYNTHESIS, BILATERAL ? CLINICAL INFORMATION: ? Screening. Asymptomatic. ? COMPARISON: ?? Mammography: Comparison is made with available priors ? TECHNIQUE: ?? Digital breast mammography with tomosynthesis is performed in both the ?? craniocaudal and mediolateral oblique views along with computer-aided ?? detection (CAD). ? FINDINGS: ?? The breasts are heterogeneously dense, which may obscure small masses ?? (ACR BI-RADS breast composition Category c). ?? Right marker clip. ?? There are no significant masses, abnormal calcifications, or other ?? abnormalities. ? MM/MM tomosynthesis screening BI ?? IMPRESSION: ?? No mammographic evidence of malignancy. ? ASSESSMENT: ? BI-RADS BI-RADS 2 - Benign Findings ? RECOMMENDATION: ?? Routine annual mammography screening. ? 1 year F/U ? This examination should not preclude the clinical evaluation of a ?? suspicious palpable abnormality. ? This patient's information was entered into a reminder system with a ?? target due date for their next mammogram. ? Electronically signed by: ??Emma Cerda DO ??03/25/2024 03:20 PM EST ? Dictated By: ?Emma Cerda DO ? Signed By: ?<Electronically signed by Emma Cerda, DO in OV> ? 03/25/24 1520 ? DD/ 1415 ? TD/TT: 03/17/24 1430 ? Stock Speculator: ? Procedure Note Omar, Rico - 03/25/2024 [facility] [address] [place] [address] Mammography Report Signed Patient: Adela [place] YMR#: [id number] : 2Acct:[id number] Age/Sex: 64 / FADM Date: 03/17/24 Loc: HO.MAMMO Attending Dr: Tierney Goncalves PROJECT COORDINATOR Ordering Physician: Tierney Goncalves FNPResults: 2Beni gn Findings Date of Service: 03/17/24Follow Up: 1 Year From Orig inal Mammogram Procedure(s): MM tomosynthesis screening BI Accession Number(s): [id number] cc: Tierney Goncalves PROJECT COORDINATOR EXAMINATION: MM SCREENING DIGITAL BREAST TOMOSYNTHESIS, BILATERAL CLINICAL INFORMATION: Screening. Asymptomatic. COMPARISON: Mammography: Comparison is made with available priors TECHNIQUE: Digital breast mammography with tomosynthesis is performed in both the craniocaudal and mediolateral oblique views along with computer-aided detection (CAD). FINDINGS: The breasts are heterogeneously dense, which may obscure small masses (ACR BI-RADS breast composition Category c). Right marker clip. There are no significant masses, abnormal calcifications, or other abnormalities. MM/MM tomosynthesis screening BI IMPRESSION: No mammographic evidence of malignancy. ASSESSMENT: BI-RADS BI-RADS 2 - Benign Findings RECOMMENDATION: Routine annual mammography screening. 1 year F/U This examination should not preclude the clinical evaluation of a suspicious palpable abnormality. This patient's information was entered into a reminder system with a target due date for their next mammogram. Electronically signed by: Emma Cerda DO 03/25/2024 03:20 PM EST RP Dictated By: Emma Cerda DO Signed By: <Electronically signed by Emma Cerda DO in OV> 03/25/24 1520 DD/ 1415 TD/TT: 03/17/24 1430 Stock Speculator: [facility] PROJECT COORDINATOR IMG BI PROCEDURES Final Resul t * (ABNORMAL) HM PAP/HPV (11/05/2023) Pap Smear 1. NILM 1. NILM HPV Detected(A ) Undetected, Indeterminate , Quantitative, Not Detected Historical Provider HEALTH MAINTENANCE Final Result * Hm Colonoscopy (03/06/2023 8:12 AM EST) Historical Provider HEALTH MAINTENANCE Final Result * Colposcopy (10/06/2022) Narrative Sandra Gregorio - 10/06/2022 PADMINI 1 [facility] Provider IN CLINIC/BEDSIDE ORDERAB LES Final Result from Last 3 Months or Most Recently Relevant to Health Maintenance Insurance [facility] , [address] [place] [address] DENTAL - HSN PARTIAL (MEDICAID) Care Teams Cullet Trucker Relationship Specialty Start Date End Date Tierney Goncalves FNP [address] [place] [id number] PCP - General Family Medicine 12/27/21
--- OUTSIDE RECORDS SUMMARY | 2024-06-13 08:44 | XMS_ITS | Encounter Summary ---
Author Organization [employer] Address [address] [place] [address] [address] [place] [place] [address] Care Team Providers Care Administrator Pesticide Name Role Phone [facility] Primary Care Provider [phone] Reason for Visit * Reason Onset Date Comments Medication Question 05/26/2024 Encounter Details Date Type Department Care Team ([facility] st Contact Info) Description 05/26/[address] [facility] [address] [place] [address] [facility] [address] [place], [place] [phone] Social History Tobacco Use Types Packs/Day Years [...] encounter Miscellaneous Notes * Telephone Encounter - Ghazal Lawrence - 05/26/2024 8:09 AM EST Tc from pt notifying insurance is not covering for medication as she's requesting a medication thatwill be covered by insurance as she doesn't know what to substitute it. DULoxetine (Cymbalta) [address] capsule (not covered by insurance ) documented in this encounter Plan of Treatment Not on file documented as of this encounter Visit Diagnoses Not on filedocumented in this encounter Additional Health Concerns Assessment Noted Time PHQ-9 Depression Total Score: 0 05/16/19 24 3:22 PM EST documented as of this encounter Care Teams Administrator Pesticide Relationship Specialty Start Date End Date Tierney Goncalves FNP [address] [place] [address] PCP - General Family Medicine 12/27/21 documented as of this encounter
--- OUTSIDE RECORDS SUMMARY | 2024-06-13 08:44 | XMS_ITS | Encounter Summary ---
Author Organization [employer] Address [address] [facility] 7 [place] [address] Care Team Providers Care Veterinary Practice Manager Name Role Phone [facility] Primary Care Provider [phone] Reason for Visit * Reason Onset Date Comments Prior Authorization 05/16/2024 Encounter Details Date Type Department Care Team (Late st Contact Info) Description 05/16/2024 Telephone [facility] [address] [place] [address] [facility] [address] [place] [address] Prior Authorization Social History Tobacco Use Types Packs/Day Years [...] encounter Miscellaneous Notes * Telephone Encounter - Isabelle Pérez LPN - 05/16/2024 10:11 AM EST Medication not covered for DULoxetine (Cymbalta) [address] capsule If changed to 20Mg twice a day insurance will cover please review , documented in this encounter Plan of Treatment Not on file documented as of this encounter Visit Diagnoses Not on filedocumented in this encounter Additional Health Concerns Assessment Noted Time PHQ-9 Depression Total Score: 0 05/16/19 24 3:22 PM EST documented as of this encounter Care Teams Veterinary Practice Manager Relationship Specialty Start Date End Date Tierney Goncalves FNP [address] [place] [id number] PCP - General Family Medicine 12/27/21 documented as of this encounter
--- OUTSIDE RECORDS SUMMARY | 2024-06-13 08:44 | XMS_ITS | Encounter Summary ---
Author Organization [employer] Address [address] [place] [address] [address] [address] Care Team Providers Care Life Support Technician Name Role Phone [facility] Primary Care Provider [phone] Reason for Visit * Reason Comments Med Refill Encounter Details Date Type Department Care Team ([facility] st Contact Info) Description 07/21/2022 Refill [facility] [address] [place] [address] [facility] [address] [place] [address] Joint pain in both hands Social History Tobacco Use Types Packs/Day Years Used Date Smoking Tobacco: Former Cigarettes Q uit: 2002 Smokeless Tobacco: Former Alcohol Use Standard Drinks/Week Comments Never 0 (1 standard drink = 0.6 oz pur e alcohol) Comments Unknown Sex and Gender Information Value Date Recorded Sex Assigned at Female 02/27/2022 10:15 AM EDT Legal Sex Female 10:15 AM EDT Gender Identity Female 02/27/2022 10:15 AM EDT Sexual Orientation Straight 02/27/2022 10 :15 AM EDT COVID-19 Exposure Response Date Recorded In the last 10 days, have marin naqvi been in contact with someone who was confirmed or suspected to have Coronavirus/COVID-19? No / Unsure 07/18/2022 9:10 AM EDT documented as of this encounter Plan of Treatment Not on file documented as of this encounter Visit Diagnoses Diagnosis Joint pain in both hands documented in this encounter Additional Health Concerns Assessment Noted Time PHQ-9 Depression Total Score: 0 05/18/19 23 2:28 PM EST documented as of this encounter Care Teams Life Support Technician Relationship Specialty Start Date End Date Tierney Goncalves FNP [address] [place] [id number] PCP - General Family Medicine 12/27/21 documented as of this encounter
--- OUTSIDE RECORDS SUMMARY | 2024-06-13 08:44 | XMS_ITS | Encounter Summary ---
Author Organization [employer] Address [address] [facility] [address] [place] [address] Care Team Providers Care Plastic Molder Name Role Phone [facility] Primary Care Provider [phone] Reason for Visit * Reason Comments Med Refill Encounter Details Date Type Department Care Team ([facility] st Contact Info) Description 05/14/2024 Refill [facility] [address] [place] [address] [facility] [address] [place] [address] Migraine without aura, not refractory Social History Tobacco Use Types Packs/Day Years [...] as of this encounter Visit Diagnoses Diagnosis Migraine without aura, not refractory documented in this encounter Additional Health Concerns Assessment Noted Time PHQ-9 Depression Total Score: 0 05/16/19 24 3:22 PM EST documented as of this encounter Care Teams Plastic Molder Relationship Specialty Start Date End Date Tierney Goncalves FNP [address] [place] [id number] PCP - General Family Medicine 12/27/21 documented as of this encounter
--- OUTSIDE RECORDS SUMMARY | 2024-06-13 08:44 | XMS_ITS | Encounter Summary ---
Author Organization [employer] Address [address] [place] [address] Care Team Providers Care Insurance Account Assistant Name Role Phone Tierney Goncalves Primary Care Provider [phone] Encounter Details Date Type Department Care Team ([facility] st Contact Info) Description 05/16/2022 Telephone [facility] [address] [place], [place] [phone] Tierney Goncalves FNP [address] [place] [address] Social History Tobacco Use Types Packs/Day Years [...] Recorded In the last 10 days, have yo u been in contact with someone who was confirmed or suspected to have Coronavirus/COVID-19? No / Unsure 05/18/2022 2:15 PM EST documented as of this encounter Plan of Treatment Not on file documented as of this encounter Visit Diagnoses Not on filedocumented in this encounter Care Teams Insurance Account Assistant Relationship Specialty Start Date End Date Tierney Goncalves FNP [address] [place] [address] [place] [address] PCP - General Family Medicine 12/27/21 documented as of this encounter
== END 2024-06-13 09:14 | disposition home or self-care (01) ==
PROVIDERS: PCP Registered Nurse; Visit Provider Nurse Practitioner Family
DX: M25.512 Pain in left shoulder (principal); M47.812 Spondylosis without myelopathy or radiculopathy, cervical region; M25.531 Pain in right wrist; M25.532 Pain in left wrist; G89.4 Chronic pain syndrome; M62.838 Other muscle spasm
CPT/HCPCS: 99214

== ENCOUNTER → 2024-06-13 09:25 | Outpatient (BNV) | payer OTHER, SELFPAY | PROVIDERS: PCP Registered Nurse; Visit Provider Radiology Diagnostic Radiology | DX: M25.512 Pain in left shoulder (principal) | CPT/HCPCS: 73030 ==

== ENCOUNTER 2024-06-20 14:00 | Outpatient (AMB) | payer OTHER, SELFPAY ==
--- NOTE | 2024-06-20 14:00 | A.OFFVIS_ITS ---
VS Expanded 06/20/24 14:05 Height 5 ft 3 in Weight 125 lb 8 oz BMI 22.2 Intake Visit Reasons: (TV) s/p Diaphragmatic Hernia Repair 03/04/24 Allergies No Known Allergies [No Known Allergies*] Allergy (Verified 06/13/24 08:36) HPI Comments Details: Patient is a pleasant 64-year-old female who returns to the office today in follow-up. She is approximately 3 months post hiatal hernia repair on 03/04/2024. Weight today is 125.8 pounds with a BMI of 22.2 She states she is doing well. She is not having any GERD. She does report she doing well. She reports intermittent nausea once every other week, she is unable to quantify what or how much or how often. No vomiting, describes the nausea as mild and only every now and then. She states that she has an appointment with GI in a month or 2 and will follow up with them at that time. Taking MVI daily. Taking tylenol as needed for chronic arthritis. Meal plan: 1 rtd shake orgain 1 celebrate bar/spanish yogurt 5 forks protein and 5 forks veg drinking 48 oz water daily exercise plan: walking outside and active with her job. [facility] Medical History Cervical high risk HPV (human papillomavirus) test positive Fibromyalgia Elevated cholesterol Weight loss Karina's disease Non-toxic multinodular goiter Osteoarthritis of left hip Schatzki's ring Hiatal hernia Hx of migraines History of multinodular goiter IBS (irritable bowel syndrome) GERD (gastroesophageal reflux disease) Dysphagia Chronic pain syndrome Spondylosis, lumbar, with myelopathy Sacroiliitis Surgical History History of bilateral tubal ligation Hx of dilation and curettage Hx of arthroscopy of right knee History of esophagogastroduodenoscopy (EGD) Hx of colonoscopy History of cholecystectomy Family History Father Unknown family medical history Mother Arthritis Diverticulitis Gastritis Breast cancer Chronic asthma Adenomatous colon polyp HTN (hypertension) Maternal Grandmother Colon cancer Daughter Hypothyroid Daughter Traveling blood clot in leg Obesity Prediabetes Social History Household Members: Spouse Housing: House Are you a primary behavioral health care manager to a significant other at home: No Do you presently have visiting nurse or other home services: No Alcohol intake: never Patient Tobacco Use Status: Former Tobacco user Tobacco use type: Cigarette Years Smoked: 20 service: No Current occupational status: employed 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 Female 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 History Menstrual Age of Menarche: 13 Telehealth Telehealth Telehealth Platform: Telephone Location of provider rendering services: practice address Location of patient: address on file Patient Identification confirmed using: Name, : Yes Telehealth method: video Patient verbally consented to treatment: Yes Patient verbally consented to billing insurance company: Yes Patient informed of any privacy concerns related to visit: Yes Minutes spent on Phone/Video with Pt.: 12 Assessment & Plan Assessment & Plan (1) Status post repair of paraesophageal diaphragmatic hernia: Code(s): Z98.890 - Other specified postprocedural states; Z87.19 - Personal history of other diseases of the digestive system Category: Surgical Plan: Overall satisfied with the results of her procedure. She does report intermittent mild nausea although is unable to quantify what she is eating or when she is eating or how much of the food that she is eating when the nausea occurs. She reiterated that the nausea is mild in nature. No associated vomiting. She states that she will develop a food journal around the intermittent nausea so she may bring this to her GI specialist whom she is seeing next month. She certainly may return to our office at any point in the future or if she wishes any further care
[2024-06-20 14:05] VITALS: BMI 22.2
--- OUTSIDE RECORDS SUMMARY | 2024-06-20 14:32 | XMS_ITS | Encounter Summary ---
Author Organization [employer] Address [address] [place] [address] [address], [place] [address] Care Team Providers Care Mechanical Door Repairer Name Role Phone [facility] Primary Care Provider [phone] Reason for Visit * Reason Comments Med Refill Encounter Details Date Type Department Care Team ([facility] st Contact Info) Description 07/21/2022 Refill [facility] MEDICINE 230 [place] [address] [facility] 230 [place] [address] Joint pain in both hands Social History [...] documented as of this encounter Care Teams Mechanical Door Repairer Relationship Specialty Start Date End Date Tierney Goncalves FNP [address] [place] [address] PCP - General Family Medicine 12/27/21 documented as of this encounter
--- OUTSIDE RECORDS SUMMARY | 2024-06-20 14:32 | XMS_ITS | Encounter Summary ---
Author Organization [employer] Address [address] 7t [place] [address] Care Team Providers Care Category Specialist Name Role Phone Tierney Goncalves BUILDING ADMIN Primary Care Provider [phone] Encounter Details Date Type Department Care Team (Late st Contact Info) Description 08/08/2023 Orders Only [facility] MEDICINE [address] [place] [address] ProviderEvon MD Social History Tobacco Use Types [...] documented as of this encounter Care Teams Category Specialist Relationship Specialty Start Date End Date Tierney Goncalves FNP [address] [place] [address] PCP - General Family Medicine 12/27/21 documented as of this encounter
--- OUTSIDE RECORDS SUMMARY | 2024-06-20 14:32 | XMS_ITS | Encounter Summary ---
Author Organization [employer] Address [address] [facility] [address] [place] [address] Care Team Providers Care Day Camp Counselor Name Role Phone Tierney Goncalves WALLPAPER REMOVER STEAM Primary Care Provider [phone] Reason for Visit * Reason Onset Date Comments case clarification 07/31/2023 Encounter Details Date Type Department Care Team ([facility] st Contact Info) Description 07/31/2023 Telephone [facility] ADULT DENTAL 230 [place] [address] Camron Rios DDS [address] [place], [place] [phone] case clarification Social History Tobacco Use Types [...] documented as of this encounter Care Teams Day Camp Counselor Relationship Specialty Start Date End Date Tierney Goncalves FNP [address] [place] [address] PCP - General Family Medicine 12/27/21 documented as of this encounter
--- OUTSIDE RECORDS SUMMARY | 2024-06-20 14:32 | XMS_ITS | Encounter Summary ---
Author Organization [employer] Address [address] [place] [address] [address] [address] Care Team Providers Care Lacing Presser Name Role Phone [facility] Primary Care Provider [phone] Reason for Visit * Reason Onset Date Comments Nurse Triage 06/05/2024 Encounter Details Date Type Department Care Team ([facility] st Contact Info) Description 06/05/2024 Telephone [facility] MEDICINE 230 [place] [address] [facility] 230 [place], [place] [phone] Nurse Triage Social History Tobacco Use Types [...] documented as of this encounter Care Teams Lacing Presser Relationship Specialty Start Date End Date Tierney Goncalves FNP [address] [place] [address] PCP - General Family Medicine 12/27/21 documented as of this encounter
--- OUTSIDE RECORDS SUMMARY | 2024-06-20 14:32 | XMS_ITS | Encounter Summary ---
Author Organization [employer] Address [address] 7t [place] [address] Care Team Providers Care Gas Operation Manager Name Role Phone Tierney Goncalves OFFICE ADMINISTRATION INSTRUCTOR Primary Care Provider [phone] Encounter Details Date Type Department Care Team (Late st Contact Info) Description 06/13/2024 Orders Only [facility] External Provider, [facility] Social History Tobacco Use Types Packs/Day Years [...] the past 12 months, has t he [employer], gas, oil or water [employer] threatened to shut off services in your [...] Procedure Name Priority Date/Time Associated Diagnosis Comments XR SHOULDER 2+ VIEWS LEFT Routine 06/14/2024 5:38 AM EST documented in this encounter Results * XR Shoulder 2+ Views Left (06/14/2024 5:38 AM EST) Anatomical Region Laterality Modality Upper Extremities, Shoulder Left Radi ographic Imaging 06/14/2024 5:38 AM EST Narrative 06/14/2024 5:39 AM EST ? [facility] ?[address] ?[place] [address] ?XRay Report ? Signed ? Patient: Adela Flynn ?MR#: [id number] ? : 1960 ?Acct:[id number] ? Age/Sex: 64 / F ?ADM Date: 06/13/24 ? Loc: HO.XRAY ? Attending Dr: Kanika Liz OFFICE ADMINISTRATION INSTRUCTOR ? Ordering Physician: Kanika Liz OFFICE ADMINISTRATION INSTRUCTOR ?? Date of Service: 06/13/24 ?? Procedure(s): XR shoulder LT min 2V ?? Accession Number(s): [id number] ? cc: Kanika Liz OFFICE ADMINISTRATION INSTRUCTOR; Tierney Goncalves OFFICE ADMINISTRATION INSTRUCTOR ? CLINICAL HISTORY: M25.512 - Pain in left shoulder ? 4 view left shoulder ? Comparison: CR/MI/SR - XR SHOULDER LT MIN 2V - 11/01/21 15:06 EDT ? Findings: ?? No fractures or dislocations. ?? Vkfd-wm-dhzmpstn osteoarthritic changes of the AC joint. ?? No erosions. No radiopaque foreign body. ? IMPRESSION: ?? 1. No acute findings ? This document has been electronically signed by: Diego Fan MD on ?? 06/14/2024 05:38:17 ? Dictated By: ?Diego Fan MD ? Signed By: ?<Electronically signed by Diego Fan MD in OV> ?06/14/24537 ? DD/ 7 ? TD/TT: 06/14/24537 ? Supervisor Varnish: ? Procedure Note Rico Nelson - 06/14/[address] [address] XRay Report Signed Patient: Adela Flynn YMR#: [id number] : 1960cct:[id number] Age/Sex: 64 / FADM Date: 06/13/24 Loc: RAUL Attending Dr: Kanika SOL Ordering Physician: Kanika Liz Date of Service: 06/13/24 Procedure(s): XR shoulder LT min 2V Accession Number(s): [id number] cc: Kanika LizP; [facility] OFFICE ADMINISTRATION INSTRUCTOR CLINICAL HISTORY: M25.512 - Pain in left shoulder 4 view left shoulder Comparison: CR/MI/SR - XR SHOULDER LT MIN 2V - 11/01/21 15:06 EDT Findings: No fractures or dislocations. Omnj-ow-gadkfrhq osteoarthritic changes of the AC joint. No erosions. No radiopaque foreign body. IMPRESSION: 1. No acute findings This document has been electronically signed by: Diego Fan MD on 06/14/2024 05:38:17 Dictated By: Diego Fan MD Signed By: <Electronically signed by Diego Fan MD in OV> 06/14/24537 DD/ 7 TD/TT: 06/14/24537 Supervisor Varnish: [facility] External Provider IMG XR PROCEDURES Edited Result - Final documented in this encounter Visit Diagnoses Not on filedocumented in this encounter Additional Health Concerns Assessment Noted Time PHQ-9 Depression Total Score: 0 05/16/19 24 3:22 PM EST documented as of this encounter Care Teams Gas Operation Manager Relationship Specialty Start Date End Date Tierney GoncalvesSWETA 230 [place] [address] PCP - General Family Medicine 12/27/21 documented as of this encounter
--- OUTSIDE RECORDS SUMMARY | 2024-06-20 14:32 | XMS_ITS | Encounter Summary ---
Author Organization [employer] Address [address] 7t [place] [address] Care Team Providers Care Head Swamper Name Role Phone Tierney Goncalves BURR MACHINE OPERATOR Primary Care Provider [phone] Encounter Details Date Type Department Care Team ([facility] st Contact Info) Description 09/07/2023 Telephone [facility] ADULT DENTAL 230 [place], [place] [phone] Camron Rios DDS [address] [place], [place] [phone] Social History Tobacco Use Types Packs/Day Years [...] EDT Patient calling to make apt to pick up and delivery driver parcles documented in this encounter Plan of Treatment Not on file documented as of this encounter Visit Diagnoses Not on filedocumented in this encounter Additional Health Concerns Assessment Noted Time PHQ-9 Depression Total Score: 0 05/16/19 24 3:22 PM EST documented as of this encounter Care Teams Head Swamper Relationship Specialty Start Date End Date Tierney Goncalves FNP [address] [place] [address] PCP - General Family Medicine 12/27/21 documented as of this encounter
--- OUTSIDE RECORDS SUMMARY | 2024-06-20 14:32 | XMS_ITS | Encounter Summary ---
Author Organization [employer] Address [address] [facility] [address] [place] [address] Care Team Providers Care Pictures Editor Name Role Phone [facility] Primary Care Provider [phone] Reason for Visit * Reason Comments Med Refill Encounter Details Date Type Department Care Team ([facility] st Contact Info) Description 08/19/2023 Refill [facility] MEDICINE 230 [place] [address] [facility] 230 [place] [address] Fibromyalgia Social History Tobacco Use Types Packs/Day [...] documented as of this encounter Care Teams Pictures Editor Relationship Specialty Start Date End Date Tierney Goncalves FNP [address] [place] [address] PCP - General Family Medicine 12/27/21 documented as of this encounter
--- OUTSIDE RECORDS SUMMARY | 2024-06-20 14:32 | XMS_ITS | Encounter Summary ---
Author Organization [employer] Address [address] [place] [address] Care Team Providers Care Case Repairer Name Role Phone Tierney Goncalves Primary Care Provider [phone] Encounter Details Date Type Department Care Team ([facility] st Contact Info) Description 05/16/2022 Telephone [facility] MEDICINE 230 [place], [place] [phone] Tierney Goncalves FNP 230 [place] [address] Social History Tobacco Use Types Packs/Day Years [...] on filedocumented in this encounter Care Teams Case Repairer Relationship Specialty Start Date End Date Tierney Goncalves FNP [address] [place] [address] [place] [address] PCP - General Family Medicine 12/27/21 documented as of this encounter
--- OUTSIDE RECORDS SUMMARY | 2024-06-20 14:32 | XMS_ITS | Encounter Summary ---
Author Organization [employer] Address [address] [place] [address] [address] [place] [address] Care Team Providers Care Aprn Name Role Phone [facility] Primary Care Provider [phone] Reason for Visit * Reason Onset Date Comments Medication Question 05/26/2024 Encounter Details Date Type Department Care Team ([facility] st Contact Info) Description 05/26/2024 Refill [facility] MEDICINE 230 [place] [address] [facility] 230 [place], [place] [phone] Social History Tobacco Use Types Packs/Day Years [...] documented as of this encounter Care Teams Aprn Relationship Specialty Start Date End Date Tierney Goncalves FNP 230 [place] [address] PCP - General Family Medicine 12/27/21 documented as of this encounter
--- OUTSIDE RECORDS SUMMARY | 2024-06-20 14:32 | XMS_ITS | Encounter Summary ---
Author Organization [employer] Address [address] [facility] [address] [place] [address] Care Team Providers Care City Attorney Name Role Phone [facility] Primary Care Provider [phone] Reason for Visit * Reason Comments Med Refill Encounter Details Date Type Department Care Team ([facility] st Contact Info) Description 03/13/2023 Refill [facility] MEDICINE 230 [place] [address] [facility] 230 [place] [address] Social History Tobacco Use Types Packs/Day Years [...] documented as of this encounter Care Teams City Attorney Relationship Specialty Start Date End Date Tierney Goncalves FNP [address] [place] [address] PCP - General Family Medicine 12/27/21 documented as of this encounter
--- OUTSIDE RECORDS SUMMARY | 2024-06-20 14:32 | XMS_ITS | Clinical Summary ---
Author Organization [employer] Address [address] [facility] 7 [place] [address] Care Team Providers Care Elocution Teacher Name Role Phone Tierney Goncalves RN LAB Primary Care Provider [phone] Allergies No known active allergies Medications omeprazole [...] Negative EMB 09/01/22 ? ? Followed by [facility] ASSISTANT FILM EDITOR Mixed hyperlipidemia 05/26/2022 Overview (05/26/2022): ?? 03/2022 ASCVD 2.8% ?? Diet controlled Healthcare maintenance 04/02/2022 Overview (08/15/2023): Mammo: 02/2023 bi-rads 2 Pap: 05/2021 though [facility] ASSISTANT FILM EDITOR, NIL HPV +'colpo PADMINI 1, repeat co-testing due 09/2023 C-scope: 2016, has upcoming appointment BMD: Routine age 67 HCV Screen: Neg 2016 HIV Screen: Neg 2015 Immunizations: declines COVID booster today. Otherwise UTD Screening Labs: A1c-4.8, 2020 Assessment & Plan (04/02/2022 1:22 PM EST): Mammo: 02/2022 bi-rads 2, repeat 02/2023 Pap: 05/2021 though [facility] ASSISTANT FILM EDITOR, NIL HPV +, pt does not now [...] dysphagia and early satiety - Followed by [facility] GI with previously benign EGD w/ esophageal spasm, negative gastric emptying study, neg. H.pylori biopsy Osteoarthritis of facet joint of lumbar spine Overview (05/18/2022): - Hx of sacroilitis - Previously seen by [facility] ortho and pain mngmt; has received numerous steroid injections with minimal sx improvement. Has tried PT for various concerns without improvement. - Is not currently followed by ortho or pain mngmt ?? Non-toxic multinodular goiter 07/20/2017 Overview (05/18/2022): Benign multi-nodular goiter followed by [facility] endo. Per lats visit note 08/2021, patient to reconsider thyroidectomy if sx of dysphagia worsen; has follow up in 6 months - Per chart review pt was referred to [place] for possible thyroidectomy however pt does not have transportation. Insurance barriers limit more local access. -FNA of left mid pole nodule on 04/20/16 consistent with benign follicular nodule. 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 Per visit note plan to monitor q. 6 months and consider biopsy if WBC count < 2 or development of B sx Diffuse spasm of esophagus 05/17/2016 Fibromyalgia 04/28/2016 Overview (01/02/2023): ?? Duloxetine 40mg daily ?? Amitriptyline 10mg at bedtime ?? Chronic back pain, shoulder pain ?? Hx of sacroilitis ?? Previously seen by [facility] ortho and pain mngmt; has received numerous [...] Encounters Date Type Department Care Team Description 06/13/2024 Orders Only [facility] External Provider, [facility] 06/05/2024 10:40 AM EST Office Visit [facility] [address] [place] [address] Emeka Benjamin MD De Quervain's tenosynovitis, left (Primary Dx) 06/05/2024 Telephone [facility] MEDICINE [address] [place] [address] Tierney Goncalves FNP Nurse Triage 05/26/2024 Refill [facility] MEDICINE [address] [place] [address] Tierney Goncalves FNP 05/16/2024 Telephone [facility] & PEDS [address] [place], [place] [phone] Tierney Goncalves FNP Prior Authorization 05/14/2024 Refill [facility] MEDICINE [address] [place] [address] Tierney Goncalves FNP Migraine without aura, not refractory 03/25/2024 Refill [facility] MEDICINE [address] [place] [address] Tierney Goncalves FNP Seasonal allergies from Last 3 Months Immunizations Name Administration Dates Next Due Influenza injectable quadriv alent IIV4 with preservative 2016 Influenza injectable quadriv alent preservative free 02/21/2023,02/18/2021,02/20/2020,2018,02/24/2018 Influenza, seasonal, injecta ble, preservative free 01/14/2024,03/31/2022 Moderna Covid-19 Vaccine 12+ 09/15/2020,08/19/19 21 Moderna Covid-19 Vaccine 6+ Bivalent 09/06/2022 Pfizer [...] VIEWS LEFT Routine 06/14/2024 5:38 AM EST BI MAMMOGRAM SCREENING TOMOSYNTHESIS BILATERAL Routine 03/17/2024 [...] Recently Relevant to Health Maintenance Results * XR Shoulder 2+ Views Left (06/14/2024 5:38 AM EST) Anatomical Region Laterality Modality Upper Extremities, Shoulder Left Radi ographic Imaging 06/14/2024 5:38 AM EST Narrative 06/14/2024 5:39 AM EST ? [facility] ?[address] ?[place] [address] ?XRay Report ? Signed ? Patient: Flynn,Adela Y ?MR#: [id number] ? : 1960 ?Acct:[id number] ? Age/Sex: 64 / F ?ADM Date: 06/13/24 ? Loc: HO.XRAY ? Attending Dr: Kanika SOL ? Ordering Physician: Kanika Liz ?? Date of Service: 06/13/24 ?? Procedure(s): XR shoulder LT min 2V ?? Accession Number(s): [id number] ? cc: Kanika Liz RN LAB; Tierney Goncalves RN LAB ? CLINICAL HISTORY: M25.512 - Pain in left shoulder ? 4 view left shoulder ? Comparison: CR/AR/SR - XR SHOULDER LT MIN 2V - 11/01/21 15:06 EDT ? Findings: ?? No fractures or dislocations. ?? Zatn-zj-qlotemcg osteoarthritic changes of the AC joint. ?? No erosions. No radiopaque foreign body. ? IMPRESSION: ?? 1. No acute findings ? This document has been electronically signed by: Diego Fan MD on ?? 06/14/2024 05:38:17 ? Dictated By: ?Diego Fan MD ? Signed By: ?<Electronically signed by Diego Fan MD in OV> ?06/14/24 0538 ? DD/ 0538 ? TD/TT: 06/14/24 0538 ? Ticket Manager: ? Procedure Note Omar, Rico - 06/14/[address] [place] [address] XRay Report Signed Patient: Adela Flynn YMR#: [id number] : 2Acct:[id number] Age/Sex: 64 / FADM Date: 06/13/24 Loc: YADIRA Attending Dr: Kanika SOL Ordering Physician: Kanika Liz Date of Service: 06/13/24 Procedure(s): XR shoulder LT min 2V Accession Number(s): [id number] cc: Kanika Liz; [facility] RN LAB CLINICAL HISTORY: M25.512 - Pain in left shoulder 4 view left shoulder Comparison: CR/AR/SR - XR SHOULDER LT MIN 2V - 11/01/21 15:06 EDT Findings: No fractures or dislocations. Mtot-tm-kazsmsof osteoarthritic changes of the AC joint. No erosions. No radiopaque foreign body. IMPRESSION: 1. No acute findings This document has been electronically signed by: Diego Fan MD on 06/14/2024 05:38:17 Dictated By: Diego Fan MD Signed By: <Electronically signed by Diego Fan MD in OV> 06/14/24 0538 DD/ TD/TT: 06/14/24537 Ticket Manager: [facility] External Provider IMG XR PROCEDURES Edited Result - Final * BI Mammogram Screening Tomosynthesis Bilateral (03/17/2024 2:15 PM EST) Anatomical Region Laterality Modality Breast Bilateral Mammography 03/17/2024 2:15 PM EST Narrative 03/25/2024 3:23 PM EST ? [facility] ? [address] ?[place] [address] ? Mammography Report ? Signed ? Patient: Flynn,Alba Y ?MR#: [id number] ? : 1960 ?Acct:[id number] ? Age/Sex: 64 / F ?ADM Date: 11/18/24 ? Loc: HO.MAMMO ? Attending Dr: Tierney Goncalves RN LAB ? Ordering Physician: Tierney Goncalves RN LAB ?Results: 2Beni ?? gn Findings ? Date of Service: 03/17/24 ?Follow Up: 1 Year From Orig ?? inal Mammogram ? Procedure(s): MM tomosynthesis screening BI ?? Accession Number(s): [id number] ? cc: Tierney Goncalves RN LAB ? EXAMINATION: ?? MM SCREENING DIGITAL BREAST [...] ??Emma Cerda DO ??03/25/2024 03:20 PM EST ?? RP ? Dictated By: ?Emma Cerda DO ? Signed By: ?<Electronically signed by Emma Cerda, DO in OV> ? 03/25/24 1520 ? DD/ 1415 ? TD/TT: 03/17/24 1430 ? Ticket Manager: ? Procedure Note Donenidter, Image - 03/25/2024 [facility] [address] [place] [address] Mammography Report Signed Patient: Adela Flynn YMR#: [id number] : 2Acct:[id number] Age/Sex: 64 / FADM Date: 03/17/24 Loc: HO.MAMMO Attending Dr: Tierney Goncalves RN LAB Ordering Physician: Tierney Goncalves FNPResults: 2Beni gn Findings Date of Service: 03/17/24Follow Up: 1 Year From Orig inal Mammogram Procedure(s): MM tomosynthesis screening BI Accession Number(s): [id number] cc: Tierney Goncalves RN LAB EXAMINATION: MM SCREENING DIGITAL BREAST TOMOSYNTHESIS, BILATERAL [...] by: Emma Cerda DO 03/25/2024 03:20 PM [facility] Dictated By: Emma Cerda DO Signed By: <Electronically signed by Emma Cerda DO in OV> 03/25/24 1520 DD/ 1415 TD/TT: 03/17/24 1430 Ticket Manager: [facility] RN LAB IMG BI PROCEDURES Final Resul t * (ABNORMAL) HM PAP/HPV (11/05/2023) Pap Smear 1. NILM 1. NILM HPV Detected(A ) Undetected, Indeterminate , Quantitative, Not Detected Historical Provider HEALTH MAINTENANCE Final Result * Hm Colonoscopy (03/06/2023 8:12 AM EST) Historical Provider HEALTH MAINTENANCE Final Result * Colposcopy (10/06/2022) Narrative Sandra Gregorio - 10/06/2022 PADMINI 1 Historical Provider IN CLINIC/BEDSIDE ORDERAB LES Final Result from Last 3 Months or Most Recently Relevant to Health Maintenance Insurance [facility] DENTAL - HSN PARTIAL (MEDICAID) Care Teams Elocution Teacher Relationship Specialty Start Date End Date Tierney Goncalves FNP [address] [place] [address] PCP - General Family Medicine 12/27/21
--- OUTSIDE RECORDS SUMMARY | 2024-06-20 14:32 | XMS_ITS | Encounter Summary ---
Author Organization [employer] Address [address] 7t [place] [address] Care Team Providers Care Shipping Technician Name Role Phone Tierney Goncalves PROTECTIVE SERVICES SOCIAL WORKER Primary Care Provider [phone] Encounter Details Date Type Department Care Team (Late st Contact Info) Description 11/13/2023 Orders Only [facility] MEDICINE [address] [place] [address] ProviderEvon MD Social History Tobacco Use Types [...] documented as of this encounter Care Teams Shipping Technician Relationship Specialty Start Date End Date Tierney Goncalves FNP [address] [place] [address] PCP - General Family Medicine 12/27/21 documented as of this encounter
--- OUTSIDE RECORDS SUMMARY | 2024-06-20 14:32 | XMS_ITS | Encounter Summary ---
Author Organization [employer] Address [address] [facility] 7t [place] [address] Care Team Providers Care Promotional Representative Name Role Phone Tierney Goncalves SEWING TECHNIQUES DEMONSTRATOR Primary Care Provider [phone] Reason for Visit * Reason Comments Wrist Pain Encounter Details Date Type Department Care Team ([facility] st Contact Info) Description 06/05/2024 10:40 AM EST Office Visit [facility] 230 [place] [address] Emeka Benjaimn MD [address] [place], [place] [phone] De Quervain's tenosynovitis, left (Primary Dx) Social [...] 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 Painwith flexion and extension of her thumb [...] documented as of this encounter Care Teams Promotional Representative Relationship Specialty Start Date End Date Tierney Goncalves FNP [address] [place] [address] PCP - General Family Medicine 12/27/21 documented as of this encounter
--- OUTSIDE RECORDS SUMMARY | 2024-06-20 14:33 | XMS_ITS | Encounter Summary ---
Author Organization [employer] Address [address] [facility] 7 [place] [address] Care Team Providers Care Floater Operator Name Role Phone [employer] Primary Care Provider [phone] Reason for Visit * Reason Onset Date Comments Prior Authorization 05/16/2024 Encounter Details Date Type Department Care Team (Late st Contact Info) Description 05/16/2024 Telephone [facility] MED & PEDS [address] [place] [address] [facility] [address] [place] [address] Prior Authorization Social History Tobacco Use Types [...] documented as of this encounter Care Teams Floater Operator Relationship Specialty Start Date End Date Tierney Goncalves FNP [address] [place] [address] PCP - General Family Medicine 12/27/21 documented as of this encounter
== END 2024-06-20 14:23 | disposition home or self-care (01) ==
LOC: HO.HBS 14:06
PROVIDERS: PCP Registered Nurse; Visit Provider Physician Assistant Surgical
DX: R11.0 Nausea (principal); Z87.19 Personal history of other diseases of the digestive system
CPT/HCPCS: 99213

== ENCOUNTER → 2024-06-20 14:00 | Outpatient (BNVA) | payer OTHER, SELFPAY | PROVIDERS: PCP Registered Nurse; Visit Provider Physician Assistant Surgical | DX: Z98.890 Other specified postprocedural states (principal); Z87.19 Personal history of other diseases of the digestive system ==

== ENCOUNTER 2024-07-17 09:16 | Outpatient (REF) | payer OTHER, SELFPAY | END 2024-07-17 09:17 | disposition home or self-care (01) | LOC: HO.HOSX 09:16 | DX: Z13.89 Encounter for screening for other disorder (principal) ==

== ENCOUNTER 2024-07-18 14:27 | Outpatient (REF) | payer OTHER, SELFPAY ==
--- NOTE | ~2024-07-18 | XR_ITS ---
CLINICAL HISTORY: M25.532 - Pain in left wrist 3 view left wrist Comparison: None Findings: Bones intact. No dislocations. Degenerative changes are seen at the 1st interphalangeal joint and 5th distal interphalangeal joint. No radiopaque foreign body. IMPRESSION: 1. No acute findings This document has been electronically signed by: Jewel Dalton MD on 07/21/2024 11:32:32
--- NOTE | ~2024-07-18 | XR_ITS ---
CLINICAL HISTORY: M25.531 - Pain in right wrist 3 view right wrist Comparison: None Findings: No fractures or dislocations. Degenerative changes are seen at the 1st interphalangeal joint. No radiopaque foreign body. IMPRESSION: 1. No acute findings This document has been electronically signed by: Jewel Dalton MD on 07/21/2024 11:31:06
== END 2024-07-18 14:28 | disposition home or self-care (01) ==
LOC: HO.HOSX 14:27
PROVIDERS: PCP Registered Nurse
DX: M25.531 Pain in right wrist (principal); M25.532 Pain in left wrist
CPT/HCPCS: 73110

== ENCOUNTER 2024-07-18 14:27 | Outpatient (AMB) | payer OTHER, SELFPAY ==
[2024-07-18 14:53] VITALS: BMI 22.1
--- NOTE | 2024-07-18 14:53 | MHC.OFFVIS ---
Vital Signs 07/18/24 14:53 Height 5 ft 3 in Weight 125 lb BMI 22.1 Intake Visit Reasons: New prob- B/L hand/wrist pain Intake Note: Adela is a 64 year old left hand dominant female who presents today for a new problem visit with complaints of bilateral wrist and hand pain. States her right is worse. States she has a pulling sensation by her wrist, weakness in her hand and has difficulty working. 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 She recall she had a injury many years ago, states she fell along with a resident and sprain her wrist. Hx if injection in her left hand. 1x month ago. EMG done. EMG done on B/L UE 04/17/24: IMPRESSION: 1. This is a normal study. 2. There is no electrodiagnostic evidence for median neuropathy, ulnar neuropathy, brachial plexopathy, or cervical radiculopathy. Allergies No Known Allergies [No Known Allergies*] Allergy (Verified 07/18/24 14:57) HPI HPI New prob- B/L hand/wrist pain: Details: Adela is a 64 year old left hand dominant female who presents today for a new problem visit with complaints of bilateral wrist and hand pain. States her right is worse. States she has a pulling sensation by her wrist, weakness in her hand and has difficulty working. 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 She recall she had a injury many years ago, states she fell along with a resident and sprain her wrist. Hx if injection in her left hand. 1x month ago. EMG done. EMG done on B/L UE 04/17/24: IMPRESSION: 1. This is a normal study. 2. There is no electrodiagnostic evidence for median neuropathy, ulnar neuropathy, brachial plexopathy, or cervical radiculopathy. [facility] Medical History Cervical high risk HPV (human papillomavirus) test positive Fibromyalgia Elevated cholesterol Weight loss Karina's disease Non-toxic multinodular goiter Osteoarthritis of left hip Schatzki's ring Hiatal hernia Hx of migraines History of multinodular goiter IBS (irritable bowel syndrome) GERD (gastroesophageal reflux disease) Dysphagia Chronic pain syndrome Spondylosis, lumbar, with myelopathy Sacroiliitis Surgical History (Reviewed 07/18/24 @ 14:57 by Gisela Padilla [facility] [place]) History of bilateral tubal ligation Hx of dilation and curettage Hx of arthroscopy of right knee History of esophagogastroduodenoscopy (EGD) Hx of colonoscopy History of cholecystectomy Family History Father Unknown family medical history Mother Arthritis Diverticulitis Gastritis Breast cancer Chronic asthma Adenomatous colon polyp HTN (hypertension) Maternal Grandmother Colon cancer Daughter Hypothyroid Daughter Traveling blood clot in leg Obesity Prediabetes Social History Household Members: Spouse Housing: House Are you a primary care analyst to a significant other at home: No Do you presently have visiting nurse or other home services: No Alcohol intake: never Patient Tobacco Use Status: Former Tobacco user Tobacco use type: Cigarette Years Smoked: 20 service: No Current occupational status: employed 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 Neuro: Normal sensation of the tips of all digits of the bilateral hand at this time Vascular: Cap refill brisk Pain: Very mild tenderness to palpation about the 1st dorsal compartment on the left side No tenderness to palpation anywhere in the right hand or wrist ROM: Patient is able to make a closed fist and extend all digits of both hands fully Range of motion of bilateral wrists full and intact, but slightly painful Skin: No lacerations or abrasions. General: No ecchymosis, erythema, or evidence of infection. Psych: Appears grossly normal Affect normal Attitude cooperative Results Reviewed Results Reviewed: X-rays obtained in the office today and independently reviewed by me, Carroll Bowser PA-C, demonstrate significant arthritis of the trapezial scaphoid joint of the right wrist. Assessment & Plan Assessment & Plan (1) Bilateral wrist pain: Code(s): M25.531 - Pain in right wrist; M25.532 - Pain in left wrist Category: Medical (2) De Quervain's tenosynovitis, left: Code(s): M65.4 - Radial styloid tenosynovitis [de Quervain] Category: Medical (3) Arthritis of carpometacarpal joint: Code(s): M19.049 - Primary osteoarthritis, unspecified hand Category: Medical Plan 1. De Quervain tenosynovitis, left Status post injection proximally 4-5 weeks ago Patient is educated about this condition Patient is educated about the typical treatment course At this time, patient was informed that she can not have another injection for another 2 months Patient will follow-up at that time for repeat injection if she is still experiencing pain, as her previous injection did help a lot, but not fully Patient was amenable to this plan Patient is also provided with comfort cool thumb spica brace to wear with daytime activities 2. 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 Patient is educated about this condition Patient is educated about the typical treatment course At this time, patient was referred to occupational therapy for range of motion and strengthening of the right wrist in the setting of carpal arthritis Patient was amenable to this plan Orders: Orders XR wrist RT min 3V Today M25.531 - Pain in right wrist XR wrist LT min 3V Today M25.532 - Pain in left wrist OT Evaluation and Treatment Today M25.531 - Pain in right wrist, M25.532 - Pain in left wrist Coding Level of Care Code New Pt Level 3 (48922) Diagnoses Bilateral wrist pain M25.531; M25.532 De Quervain's tenosynovitis, left M65.4 Arthritis of carpometacarpal joint M19.049
== END 2024-07-18 15:17 | disposition home or self-care (01) ==
LOC: HO.HOS 14:28
PROVIDERS: PCP Registered Nurse
DX: M25.531 Pain in right wrist (principal); M25.532 Pain in left wrist; M65.4 Radial styloid tenosynovitis [de Quervain]; M19.041 Primary osteoarthritis, right hand
CPT/HCPCS: 99203

== ENCOUNTER → 2024-07-18 14:48 | Outpatient (BNV) | payer OTHER, SELFPAY | PROVIDERS: PCP Registered Nurse; Visit Provider Radiology Diagnostic Radiology | DX: M25.531 Pain in right wrist (principal); M25.532 Pain in left wrist | CPT/HCPCS: 73110 ==

== ENCOUNTER 2024-08-04 05:36 | Emergency (ER) | payer OTHER, SELFPAY ==
--- NOTE | ~2024-08-04 | US_ITS ---
EXAMINATION: US ABDOMEN LIMITED HISTORY: abnormal LFTs, diarrhea TECHNIQUE: Real-time grayscale ultrasound imaging of the right upper quadrant was performed and images were reviewed. COMPARISON: Comparison is made with the prior examination dated 12/15/2022. FINDINGS: Liver: The liver is normal in size. The liver demonstrates normal homogeneous echotexture. No focal mass or intrahepatic biliary ductal dilatation is identified. There is normal hepatopedal flow in the portal vein. Gallbladder and biliary tree: The gallbladder is surgically absent. The common bile duct measures 10 mm diameter, without change. Right Kidney: The right kidney measures 9.7 cm in length. The right kidney demonstrates increased echotexture which can be seen in the setting of chronic medical renal disease or pyelonephritis. There is no mass or calculi. There is slight fullness of the renal pelvis without hydronephrosis. Pancreas: The pancreatic head, neck, and body are unremarkable. The pancreatic tail is obscured by bowel gas. Abdominal aorta and inferior vena cava: The visualized portions of the abdominal aorta and inferior vena cava are normal in caliber. There is no free fluid in the right upper quadrant. US/US abdomen limited IMPRESSION: 1. The liver is unremarkable in appearance. 2. Increased renal echotexture which can be seen in the setting of chronic medical renal disease or pyelonephritis. Clinical correlation is recommended. Electronically signed by: Gasper Montez MD 08/04/2024 09:02 AM EDT
--- NOTE | ~2024-08-04 | CT_ITS ---
EXAMINATION: CT ABDOMEN PELVIS WITH IV CONTRAST HISTORY: severe abdominal pain, diarrhea, fevers COMPARISON: Comparison is made with the prior examination dated 03/24/2019. TECHNIQUE: CT scan of the abdomen and pelvis was performed following administration of 85 mL Omnipaque 350 using standard departmental protocol. Coronal and sagittal reformatted images were generated and reviewed. Oral contrast material was not administered at the request of the referring physician. This CT exam was performed with one or more of the following dose reduction techniques: automated exposure control, adjustment of the mA and/or kV according to patient size, use of iterative reconstruction technique. DLP: 339 mGy-cm FINDINGS: LOWER CHEST: The visualized lung bases are clear. There is no pleural effusion. CARDIOVASCULATURE: The heart is normal in size. There is no pericardial effusion. LIVER: The liver is normal in size and contour. There are tiny subcentimeter hypodensities in the liver which likely represent cysts, but are too small to accurately characterize. The hepatic and portal veins are patent. GALLBLADDER / BILE DUCTS: The gallbladder is surgically absent. There is mild dilatation of the common bile duct and intrahepatic biliary radicles. Comparison with the prior study is difficult due to lack of IV contrast on the prior study. SPLEEN: The spleen is normal in size. No focal splenic lesion is identified. PANCREAS: The pancreas is unremarkable in appearance. ADRENAL GLANDS: Within normal limits. KIDNEYS/RETROPERITONEUM: No renal calculi are identified. There is no hydronephrosis. No renal masses are identified. LYMPH NODES: No abdominal or pelvic lymphadenopathy. VASCULATURE: The abdominal aorta is normal in caliber. MESENTERY/PERITONEUM: No free fluid. No masses. There is no free intraperitoneal gas. STOMACH: The stomach is collapsed, limiting evaluation. SMALL BOWEL: The small bowel is normal in caliber. COLON: There is diverticulosis of the descending and sigmoid colon, without evidence of diverticulitis. APPENDIX: The appendix is prominent measuring up to 6 mm in diameter. No air is seen in the appendix. There may mild periappendiceal inflammatory stranding. Findings are suggestive of acute appendicitis. URINARY BLADDER/PELVIC ORGANS: The urinary bladder is unremarkable. There are multiple uterine fibroids measuring up to 2.4 cm in size. BONES / SOFT TISSUES: No suspicious bony or soft tissue abnormalities. CT/CT abdomen pelvis w IV con IMPRESSION: 1. Findings suggestive of mild acute appendicitis as described. 2. Diverticulosis of the descending and sigmoid colon, without evidence of diverticulitis. 3. Mild intra and extra hepatic biliary ductal dilatation which may within normal limits for a patient status post cholecystectomy. Electronically signed by: Gasper Montez MD 08/04/2024 09:35 AM EDT
[2024-08-04 05:53] LABS: Basophils Percent Auto 0.3 % (0-2); Eosinophils Absolute Auto 0.1 X10*3/uL (0.0-0.4); Eosinophils Percent Auto 1.8 % (0-4); Hematocrit 36.6 % (37.0-47.0); Hemoglobin 12.3 g/dl (12.0-16.0); Imm Gran Abs Auto 0.01 X10*3/uL (0.00-0.03); Imm Gran Pct Auto 0.3 % (0.0-0.4); Lymphocytes Absolute Auto 0.2 X10*3/uL (1.2-4.9); MANUAL DIFF FLAG NO; Mean Corpuscular HGB Conc 33.6 g/dl (31.0-35.0); Mean Corpuscular Hemoglobin 30.1 pg (27.0-33.0); Mean Corpuscular Volume 89.7 fL (80.0-98.0); Mean Platelet Volume 9.4 fL (9.4-12.3); Monocytes Absolute Auto 0.2 X10*3/uL (0.1-1.2); Neutrophils Absolute Auto 3.4 x10*3/uL (2.0-8.3); Neutrophils Percent Auto 89.6 % (45-73); Platelet Count 232 X10*3/uL (160-400); Red Blood Count 4.08 X10*6/uL (4.20-5.50); Red Cell Distribution Width 12.5 % (11.0-16.0); White Blood Count 3.8 X10*3/uL (4.8-10.8)
[2024-08-04 05:54] VITALS: BP 96/60; PULSE 68; RESP 18; TEMP 36.7; O2SAT 99; BMI 22.8
--- NOTE | 2024-08-04 06:02 | ECG_ITS ---
Test Reason : ABD PAIN Blood Pressure : */* mmHG Vent. Rate : 66 BPM Atrial Rate : 66 BPM P-R Int : 180 ms QRS Dur : 74 ms QT Int : 412 ms P-R-T Axes : 74 38 10 degrees QTcB Int : 431 ms Normal sinus rhythm Normal ECG When compared with ECG of 03-Apr-2023 10:01, Nonspecific T wave abnormality now evident in Lateral leads Referred By: Generic ED Physician Electronically Signed By: Jayy Tristan
--- OUTSIDE RECORDS SUMMARY | 2024-08-04 06:06 | XMS_ITS | Encounter Summary ---
Author Organization [facility] Address [address] [place] [address] Care Team Providers Care Dyeing Machine Tender Name Role Phone [facility] Primary Care Provider [phone] Reason for Visit * Reason Comments Med Refill Encounter Details Date Type Department Care Team ([facility] st Contact Info) Description 08/19/2023 Refill [facility] [address] [place] [address] [facility] [address] [place] [address] Fibromyalgia Social History Tobacco Use Types Packs/Day [...] as of this encounter Plan of Treatment Upcoming Encounters Date Type Department Care Team (Late st Contact Info) Description 09/24/2024 2:00 PM EDT Office Visit [facility] [address] [place] [address] Tierney Goncalves FNP [address] [place] [address] documented as of this encounter Visit Diagnoses Diagnosis Fibromyalgia Unspecified myalgia and myositis documented in this encounter Additional Health Concerns Assessment Noted Time PHQ-9 Depression Total Score: 0 05/16/19 24 3:22 PM EST documented as of this encounter Care Teams Dyeing Machine Tender Relationship Specialty Start Date End Date Tierney Goncalves FNP [address] [place] [id number] PCP - General Family Medicine 12/27/21 documented as of this encounter
--- OUTSIDE RECORDS SUMMARY | 2024-08-04 06:06 | XMS_ITS | Encounter Summary ---
Author Organization [facility] Address [address] [place] [id number] Care Team Providers Care Show Operations Supervisor Name Role Phone [facility] Primary Care Provider [phone] Encounter Details Date Type Department Care Team ([facility] Contact Info) Description 05/16/2022 Telephone [facility] [address] [place] [phone] [place] [facility] [address] [place] [address] Social History Tobacco Use Types Packs/Day Years [...] Upcoming Encounters Date Type Department Care Team ([facility] Contact Info) Description 09/24/2024 2:00 PM EDT Office Visit [facility] [address] [place] [address] [phone] Tierney Goncalves FNP [address] [place] [address] documented as of this encounter Visit Diagnoses Not on filedocumented in this encounter Care Teams Show Operations Supervisor Relationship Specialty Start Date End Date Tierney Goncalves FNP [address] [place] [address] PCP - General Family Medicine 12/27/21 documented as of this encounter
--- OUTSIDE RECORDS SUMMARY | 2024-08-04 06:06 | XMS_ITS | Encounter Summary ---
Author Organization [email or web address] Address [address] [facility] [place] [address] Care Team Providers Care Police Manager Name Role Phone Tierney Goncalves NURSE [place] Primary Care Provider [phone] Encounter Details Date Type Department Care Team (Late st Contact Info) Description 08/08/2023 Orders Only [facility] [address] [place] [address] ProviderEvon MD Social History Tobacco Use Types [...] Description 09/24/2024 2:00 PM EDT Office Visit [facility] [address] [place] [address] Tireney Goncalves FNP [address] [place] [address] documented as of this encounter Procedures Procedure [...] documented as of this encounter Care Teams Police Manager Relationship Specialty Start Date End Date Tierney Goncalves FNP [address] [place] [id number] PCP - General Family Medicine 12/27/21 documented as of this encounter
--- OUTSIDE RECORDS SUMMARY | 2024-08-04 06:06 | XMS_ITS | Clinical Summary ---
Author Organization [employer] Address [address] [facility] 7t [place] [address] Care Team Providers Care Packaging Manager Name Role Phone Tierney Goncalves BUSINESS OPERATIONS MANAGER Primary Care Provider [phone] Allergies No known active allergies Medications omeprazole (PriLOSEC) [address] capsule Take 1 capsule by mouth. Active Diclofenac Sodium 1 % gelIndications :Joint pain in both hands Apply topically to affected areas twice daily 150 g 1 05/18/19 23 Active capsaicin (Zostrix) 0.025 % creamIndicatio ns:Joint pain in both hands APPLY TOPICALLY TWICE DAILY TO THE AFFECTED AREA 60 g 07/22/19 23 Active DULoxetine (Cymbalta) [address] capsuleIndicat ions:Fibromyal mary TAKE ONE CAPSULE BY MOUTH IN THE MORNING DO NOT CRUSH OR CHEW 90 capsule 3 08/21/19 24 Active acetaminophen (Tylenol 8 Hour) 650 MG ER tablet TAKE 1 TABLET BY MOUTH EVERY 8 HOURS NEEDED. SWALLOW WHOLE WITH WATER. DO NOT BREAK, CRUSH, DISSOLVE AND/ OR CHEW 60 tablet 1 09/20/19 24 Active amitriptyline (Elavil) 10 MG tabletIndicati ons:Fibromyalg ia TAKE 1/2 TABLET BY MOUTH AT BEDTIME 15 tablet 3 12/17/19 24 Active ibuprofen 800 MG tablet TAKE 1 TABLET BY MOUTH EVERY 8 HOURS NEEDED FOR MILD PAIN 45 tablet 1 12/17/19 24 Active diphenhydrAMIN E (BENADryl) 25 MG capsuleIndicat ions:Seasonal allergies TAKE 1 CAPSULE BY MOUTH AT NIGHT NEEDED 30 capsule 1 03/26/20 24 Active topiramate 50 MG tabletIndicati ons:Migraine without aura, not refractory TAKE 1 TABLET BY MOUTH EVERY MORNING 30 tablet 3 05/14/19 25 Active DULoxetine (Cymbalta) [address] capsule Take 1 capsule (20 mg) by mouth 2 times daily. Do not crush or chew. 180 capsule 3 05/26/19 25 026 Active lidocaine (Xylocaine) 5 % ointmentIndica tions:Fibromya lgia Apply topically Once per day. APPLY TOPICALLY TO THE AFFECTED AREA 1 -4 TIMES EVERY DAY IF NEEDED 60 g 1 07/15/19 25 Active lidocaine (Xylocaine) 5 % ointmentIndica tions:Fibromya lgia Apply topically in the morning. APPLY TOPICALLY TO THE AFFECTED AREA 1 -4 TIMES EVERY DAY IF NEEDED 60 g 1 12/13/19 23 025 Discontinued(Re order (will not trigger notification to Pharmacy)) Active Problems Problem Noted Date Diagnosed Date [...] Negative EMB 09/01/22 ? ? 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 03/2022 ASCVD 2.8% ?? 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 Chatterjee C-scope: 2016 BMD: Routine age 67 HCV Screen: Neg 2016 HIV Screen: Neg 2015 Immunizations: Accepts flu, declines COVID booster today. Otherwise UTD Screening Labs: A1c-4.8, 2020 Lipids: Ordered today CMP: Ordered today Migraine without aura, not refractory 03/16/2022 Overview (05/26/2022): ?? Topiramate 50mg for prevention Osteoarthritis of right knee 04/25/2019 Dysphagia 10/03/2018 Overview (05/16/2023): Hx of persistent dysphagia and early satiety - Followed by [facility] GI with previously benign EGD w/ esophageal spasm, negative gastric emptying study, neg. H.pylori biopsy Osteoarthritis of facet joint of lumbar spine Overview (05/18/2022): - Hx of sacroilitis - Previously seen by [facility] ortho and pain mngmt; has received numerous steroid injections with minimal sx improvement. Has tried PT for various concerns without improvement. - Is not currently followed by ortho or pain mngmt ?? Non-toxic multinodular goiter 07/20/2017 Overview (05/18/2022): Benign multi-nodular goiter followed by [facility] endo. Per lats visit note 08/2021, patient to reconsider thyroidectomy if sx of dysphagia worsen; has follow up in 6 months - Per chart review pt was referred to [place] for possible thyroidectomy however pt does not have transportation. Insurance barriers limit more local access. -FNA of left mid pole nodule on 04/20/16 consistent with benign follicular nodule. 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 Per visit note plan to monitor q. 6 months and consider biopsy if WBC count < 2 or development of B sx Diffuse spasm of esophagus 05/17/2016 Fibromyalgia 04/28/2016 Overview (01/02/2023): ?? Duloxetine 40mg daily ?? Amitriptyline 10mg at bedtime ?? Chronic back pain, shoulder pain ?? Hx of sacroilitis ?? Previously seen by [facility] ortho and pain mngmt; [...] Encounters Date Type Department Care Team Description 08/04/2024 Orders Only GENERIC EXTERNAL DATA DEPARTMENT Provider, Generic External Data 07/18/2024 Orders Only [facility] External Provider, [facility] 07/09/2024 Refill [facility] [address] [place] [address] Tierney Goncalves FNP Fibromyalgia 06/13/2024 Orders Only [facility] External Provider, [facility] 06/05/2024 10:40 AM EST Office Visit [facility] [address] [place] [address] Emeka Benjamin MD De Quervain's tenosynovitis, left (Primary Dx) 06/05/2024 Telephone [facility] [address] [place] [address] Tierney Goncalves FNP Nurse Triage 05/26/2024 Refill [facility] [address] [place] [address] Tierney Goncalves FNP 05/16/2024 Telephone [facility] [address] [place], [place] [phone] Tierney Goncalves FNP Prior Authorization 05/14/2024 Refill [facility] [address] [place] [address] Tierney Goncalves FNP Migraine without aura, not refractory from Last 3 Months Immunizations Name Administration [...] 01/14/2024 2:20 PM EDT Plan of Treatment Upcoming Encounters Date Type Department Care Team (Late st Contact Info) Description 09/24/2024 2:00 PM EDT Office Visit [facility] [address] [place], [place] [phone] [facility], [facility] [address] [place], [place] [phone] Health Maintenance Due Date Last Done Comments [...] Screening 01/16/2025 01/17/2024 Mammogram 03/17/2025 03/17/2024, 02/28, 03/16/2023, Additional history exists Dental X-Ray: Full Mouth [...] Procedure Name Priority Date/Time Associated Diagnosis Comments CBC WITH AUTO DIFFERENTIAL Routine 08/04/2024 5:48 AM EDT XR WRIST 3+ VIEWS LEFT Routine 11:32 AM EDT XR WRIST 3+ VIEWS RIGHT Routine 07/21/2024 11:31 AM EDT XR SHOULDER 2+ VIEWS LEFT Routine 06/14/2024 [...] Recently Relevant to Health Maintenance Results * (ABNORMAL) CBC auto differential (08/04/2024 5:48 AM EDT) White Blood Count 3.8(L) 4.8 - 10.8 X10*3/uL [facility] Red Blood Count 4.08(L) 4.20 - 5.50 X10*6/uL [facility] Hemoglobin 12.3 12.0 - 16.0 g/dl [facility] Hematocrit 36.6(L) 37.0 - 47.0 % [facility] Mean Corpuscular Volume 89.7 80.0 - 98.0 fL [facility] Mean Corpuscular Hemoglobin 30.1 27.0 - 33.0 pg [facility] Mean Corpuscular HGB Conc 33.6 31.0 - 35.0 g/dl [facility] Red Cell Distribution Width 12.5 11.0 - 16.0 % [facility] Platelet Count 232 160 - 400 X10*3/uL [facility] Mean Platelet Volume 9.4 9.4 - 12.3 fL [facility] Neutrophils Percent Auto 89.6(H) 45 - 73 % [facility] Imm Gran Pct Auto 0.3 0.0 - 0.4 % [facility] Lymphocytes Percent Auto 4.0(L) 20 - 40 % [facility] Monocytes Percent Auto 4.0 2 - 11 % [facility] Eosinophils Percent Auto 1.8 0 - 4 % [facility] Basophils Percent Auto 0.3 0 - 2 % [facility] NRBC Pct Auto 0.0 0.0 - 0.2 /100WBC [facility] Neutrophils Absolute Auto 3.4 2.0 - 8.3 x10*3/uL [facility] Imm Gran Abs Auto 0.01 0.00 - 0.03 X10*3/uL [facility] Lymphocytes Absolute Auto 0.2(L) 1.2 - 4.9 X10*3/uL [facility] Monocytes Absolute Auto 0.2 0.1 - 1.2 X10*3/uL [facility] Eosinophils Absolute Auto 0.1 0.0 - 0.4 X10*3/uL [facility] Basophils Absolute Auto 0.0 0.0 - 0.2 X10*3/uL [facility] NRBC Abs Auto 0.000 0.0 - 0.012 X10*3/uL [facility] 08/04/2024 5:48 AM EDT 08/04/2024 5:51 AM EDT us Generic External Data Provider LAB BLOOD ORDERAB LES Final Result Performing Organization Address City/State/[facility] Co de Phone Number [facility] [address] [place] [phone] * XR Wrist 3+ Views Left (07/21/2024 11:32 AM EDT) Anatomical Region Laterality Modality Upper Extremities, Wrist Left Radiogr aphic Imaging 07/21/2024 11:3 2 AM EDT Narrative 07/21/2024 11:34 AM EDT ? [facility] ? [address] ?[place] [address] ?XRay Report ? Signed ? Patient: Flynn,Alba Y ?MR#: [id number] ? : 1960 ?Acct:[id number] ? Age/Sex: 64 / F ?ADM Date: 07/18/24 ? Loc: HO.HOSX ? Attending Dr: Carroll DAVALOS ? Ordering Physician: Carroll Bowser ?? Date of Service: 07/18/24 ?? Procedure(s): XR wrist LT min 3V ?? Accession Number(s): [id number] ? cc: Carroll Bowser; Tierney Goncalves BUSINESS OPERATIONS MANAGER ? CLINICAL HISTORY: M25.532 - Pain in left wrist ? 3 view left wrist ? Comparison: None ? Findings: ?? Bones intact. No dislocations. ?? Degenerative changes are seen at the 1st interphalangeal joint and 5th ?? distal interphalangeal joint. ?? No radiopaque foreign body. ? IMPRESSION: ?? 1. No acute findings ? This document has been electronically signed by: Jewel Dalton MD on ?? 07/21/2024 11:32:32 ? Dictated By: ?Jewel Dalton MD ? Signed By: ?<Electronically signed by Jewel Dalton MD in OV> ? 07/21/24 1133 ? DD/ 1132 ? TD/TT: 07/21/24 1132 ? Cigarette Paper Tester: ? Procedure Note Omar, Rico - 07/21/2024 [facility] [address] [place] [address] [address] [place] [address] XRay Report Signed Patient: Adela Flynn YMR#: [id number] : 2Acct:[id number] Age/Sex: 64 / FADM Date: 07/18/24 Loc: HO.HOSX Attending Dr: Carroll DAVALOS Ordering Physician: Carroll Bowser Date of Service: 07/18/24 Procedure(s): XR wrist LT min 3V Accession Number(s): [id number] cc: Carroll Bowser; [facility] CLINICAL HISTORY: M25.532 - Pain in left wrist 3 view left wrist Comparison: None Findings: Bones intact. No dislocations. Degenerative changes are seen at the 1st interphalangeal joint and 5th distal interphalangeal joint. No radiopaque foreign body. IMPRESSION: 1. No acute findings This document has been electronically signed by: Jewel Dalton MD on 07/21/2024 11:32:32 Dictated By: Jewel Dalton MD Signed By: <Electronically signed by Jewel Dalton MD in OV> 07/21/24 1133 DD/ 1132 TD/TT: 07/21/24 1132 Cigarette Paper Tester: [facility] External Provider IMG XR PROCEDURES Final Result * XR Wrist 3+ Views Right (07/21/2024 11:31 AM EDT) Anatomical Region Laterality Modality Upper Extremities, Wrist Right Radiogr aphic Imaging 07/21/2024 11:3 1 AM EDT Narrative 07/21/2024 11:32 AM EDT ? [facility] ? [address] ?[place], [place] [address] ?XRay Report ? Signed ? Patient: Flynn,Alba Y ?MR#: [id number] ? : 1960 ?Acct:[id number] ? Age/Sex: 64 / F ?ADM Date: 07/18/24 ? Loc: HO.HOSX ? Attending Dr: Carroll DAVALOS ? Ordering Physician: Carroll Bowser ?? Date of Service: 07/18/24 ?? Procedure(s): XR wrist RT min 3V ?? Accession Number(s): [id number] ? cc: Carroll Bowser; Tierney Goncalves ? CLINICAL HISTORY: M25.531 - Pain in right wrist ? 3 view right wrist ? Comparison: None ? Findings: ?? No fractures or dislocations. ?? Degenerative changes are seen at the 1st interphalangeal joint. ?? No radiopaque foreign body. ? IMPRESSION: ?? 1. No acute findings ? This document has been electronically signed by: Jewel Dalton MD on ?? 07/21/2024 11:31:06 ? Dictated By: ?Jewel Dalton MD ? Signed By: ?<Electronically signed by Jewel Dalton MD in OV> ? 07/21/24 1131 ? DD/ 1131 ? TD/TT: 07/21/24 1131 ? Cigarette Paper Tester: ? Procedure Note Omar, Rico - 07/21/2024 [facility] [address] [place] [address] XRay Report Signed Patient: Adela Flynn YMR#: [id number] : 2Acct:[id number] Age/Sex: 64 / FADM Date: 07/18/24 Loc: HODanyHOSX Attending Dr: Carroll DAVALOS Ordering Physician: Carroll Bowser Date of Service: 07/18/24 Procedure(s): XR wrist RT min 3V Accession Number(s): [id number] cc: Carroll Bowser; [facility] CLINICAL HISTORY: M25.531 - Pain in right wrist 3 view right wrist Comparison: None Findings: No fractures or dislocations. Degenerative changes are seen at the 1st interphalangeal joint. No radiopaque foreign body. IMPRESSION: 1. No acute findings This document has been electronically signed by: Jewel Dalton MD on 07/21/2024 11:31:06 Dictated By: Jewel Dalton MD Signed By: <Electronically signed by Jewel Dalton MD in OV> 07/21/24 1131 DD/ 1131 TD/TT: 07/21/24 1131 Cigarette Paper Tester: [facility] External Provider IMG XR PROCEDURES Final Result * XR Shoulder 2+ Views Left (06/14/2024 5:38 AM EST) Anatomical Region Laterality Modality Upper Extremities, Shoulder Left Radi ographic Imaging 06/14/2024 5:38 AM EST Narrative 06/14/2024 5:39 AM EST ? [facility] ?[address] ?[place] [address] ?XRay Report ? Signed ? Patient: Flynn,Alba Y ?MR#: [id number] ? : 1960 ?Acct:[id number] ? Age/Sex: 64 / F ?ADM Date: 02/14/25 ? Loc: HO.XRAY ? Attending Dr: Kanika Liz BUSINESS OPERATIONS MANAGER ? Ordering Physician: Kanika Liz ?? Date of Service: 06/13/24 ?? Procedure(s): XR shoulder LT min 2V ?? Accession Number(s): [id number] ? cc: Kanika Liz BUSINESS OPERATIONS MANAGER; [employer] BUSINESS OPERATIONS MANAGER ? CLINICAL HISTORY: M25.512 - Pain in left shoulder ? 4 view left shoulder ? Comparison: CR/MD/SR - XR SHOULDER LT MIN 2V - 11/01/21 15:06 EDT ? Findings: ?? No fractures or dislocations. ?? Yuab-bp-jiysbkxv osteoarthritic changes of the AC joint. ?? No erosions. No radiopaque foreign body. ? IMPRESSION: ?? 1. No acute findings ? This document has been electronically signed by: Diego Fan MD on ?? 06/14/2024 05:38:17 ? Dictated By: ?Diego Fan MD ? Signed By: ?<Electronically signed by Diego Fan MD in OV> ?06/14/24 0538 ? DD/ 0538 ? TD/TT: 06/14/24537 ? Cigarette Paper Tester: ? Procedure Note [place], Image - 06/14/2024 [place] [address] XRay Report Signed Patient: Adela Flynn YMR#: [id number] : 1960cct:[id number] Age/Sex: 64 / FADM Date: 06/13/24 Loc: RAUL Attending Dr: Kanika SOL Ordering Physician: Kanika Liz Date of Service: 06/13/24 Procedure(s): XR shoulder LT min 2V Accession Number(s): [id number] cc: Kanika Liz; [facility] CLINICAL HISTORY: M25.512 - Pain in left shoulder 4 view left shoulder Comparison: CR/MD/SR - XR SHOULDER LT MIN 2V - 11/01/21 15:06 EDT Findings: No fractures or dislocations. Kayq-jb-svwiknfw osteoarthritic changes of the AC joint. No erosions. No radiopaque foreign body. IMPRESSION: 1. No acute findings This document has been electronically signed by: Diego Fan MD on 06/14/2024 05:38:17 Dictated By: Diego Fan MD Signed By: <Electronically signed by Diego Fan MD in OV> 06/14/24 0538 DD/ TD/TT: 06/14/24537 Cigarette Paper Tester: [facility] External Provider IMG XR PROCEDURES Edited Result - Final * BI Mammogram Screening Tomosynthesis Bilateral (03/17/2024 2:15 PM EST) Anatomical Region Laterality Modality Breast Bilateral Mammography 03/17/2024 2:15 PM EST Narrative 03/25/2024 3:23 PM EST ? [facility] ? [address] ?[place] [address] ? Mammography Report ? Signed ? Patient: Adela Flynn Y ?MR#: [id number] ? : 1960 ?Acct:[id number] ? Age/Sex: 64 / F ?ADM Date: 03/17/24 ? Loc: HO.MAMMO ? Attending Dr: Tierney Ivanna BUSINESS OPERATIONS MANAGER ? Ordering Physician: Ivanna,Tierney BUSINESS OPERATIONS MANAGER ?Results: 2Beni ?? gn Findings ? Date of Service: 03/17/24 ?Follow Up: 1 Year From Orig ?? inal Mammogram ? Procedure(s): MM tomosynthesis screening BI ?? Accession Number(s): [id number] ? cc: Ivanna,Tierney BUSINESS OPERATIONS MANAGER ? EXAMINATION: ?? MM SCREENING DIGITAL BREAST [...] DD/ 1415 ? TD/TT: 03/17/24 1430 ? Cigarette Paper Tester: ? Procedure Note Rico Nelson - 03/25/2024 [facility] [address] [place] [address] [place] [address] Mammography Report Signed Patient: Adela Flynn YMR#: [id number] : 2Acct:[id number] Age/Sex: 64 / FADM Date: 03/17/24 Loc: SAMANTHA Attending Dr: Tierney Goncalves BUSINESS OPERATIONS MANAGER Ordering Physician: Tierney Goncalves FNPResults: 2Beni gn Findings Date of Service: 03/17/24Follow Up: 1 Year From Orig inal Mammogram Procedure(s): MM tomosynthesis screening BI Accession Number(s): [id number] cc: [facility] BUSINESS OPERATIONS MANAGER EXAMINATION: MM SCREENING DIGITAL BREAST TOMOSYNTHESIS, BILATERAL [...] Emma Cerda DO 03/25/2024 03:20 PM EST Dictated By: Emma Cerda DO Signed By: <Electronically signed by Emma Cerda DO in OV> 03/25/24 1520 DD/ 1415 TD/TT: 03/17/24 1430 Cigarette Paper Tester: Result [facility] BUSINESS OPERATIONS MANAGER IMG BI PROCEDURES Final Resul t * (ABNORMAL) HM PAP/HPV (11/05/2023) Pap Smear 1. NILM 1. NILM HPV Detected(A ) Undetected, Indeterminate , Quantitative, Not Detected Historical Provider HEALTH MAINTENANCE Final Result * Hm Colonoscopy (03/06/2023 8:12 AM EST) Historical Provider HEALTH MAINTENANCE Final Result * Colposcopy (10/06/2022) Narrative Sanrda Gregorio - 10/06/2022 PADMINI 1 Historical Provider IN CLINIC/BEDSIDE ORDERAB LES Final Result from Last 3 Months or Most Recently Relevant to Health Maintenance Insurance [facility] , [address] [place] [address] DENTAL - HSN PARTIAL (MEDICAID) Care Teams Packaging Manager Relationship Specialty Start Date End Date Tierney Goncalves FNP [address] [place] [phone] PCP - General Family Medicine 12/27/21
--- OUTSIDE RECORDS SUMMARY | 2024-08-04 06:06 | XMS_ITS | Encounter Summary ---
Author Organization [employer] Address [address] [facility] [address] [place] [address] Care Team Providers Care Factory Lay Out Engineer Name Role Phone [facility] Primary Care Provider [phone] Reason for Visit * Reason Comments Med Refill Encounter Details Date Type Department Care Team ([facility] st Contact Info) Description 03/13/2023 Refill [facility] [address] [place] [address] [facility] [address] [place] [address] Social History Tobacco Use Types Packs/Day Years [...] Description 09/24/2024 2:00 PM EDT Office Visit [facility] [address] [place] [address] Tierney Goncalves FNP [address] [place] [address] documented as of this encounter Visit Diagnoses Not on filedocumented in this encounter Additional Health Concerns Assessment Noted Time PHQ-9 Depression Total Score: 0 12/13/19 23 2:06 PM EDT documented as of this encounter Care Teams Factory Lay Out Engineer Relationship Specialty Start Date End Date Tierney Goncalves FNP [address] [place] [address] PCP - General Family Medicine 12/27/21 documented as of this encounter
--- OUTSIDE RECORDS SUMMARY | 2024-08-04 06:06 | XMS_ITS | Encounter Summary ---
Author Organization [employer] Address [address] [facility] [address] 7[address] [place] [address] Care Team Providers Care Operations Officer Afloat Name Role Phone Tierney Goncalves [employer] SETTER Primary Care Provider [phone] Encounter Details Date Type Department Care Team ([facility] st Contact Info) Description 09/07/2023 Telephone [facility] ADULT DENTAL [address] [place], [place] [phone] Camron Rios DDS [address] [place], [place] [phone] Social History Tobacco Use Types Packs/Day Years [...] Patient calling to make apt to pick remover parcles documented in this encounter Plan of Treatment Upcoming Encounters Date Type Department Care Team (Late st Contact Info) Description 09/24/2024 2:00 PM EDT Office Visit [facility] MED[facility] [address] [place] [address] Tierney Goncalves FNP [address] [place] [address] documented as of this encounter Visit Diagnoses Not on filedocumented in this encounter Additional Health Concerns Assessment Noted Time PHQ-9 Depression Total Score: 0 05/16/19 24 3:22 PM EST documented as of this encounter Care Teams Operations Officer Afloat Relationship Specialty Start Date End Date Tierney Goncalves FNP [address] [place] [address] PCP - General Family Medicine 12/27/21 documented as of this encounter
--- OUTSIDE RECORDS SUMMARY | 2024-08-04 06:06 | XMS_ITS | Encounter Summary ---
Author Organization [employer] Address [address] [facility] [address] [place] [address] Care Team Providers Care Sales Operations Coordinator Name Role Phone Tierney Goncalves RETAIL PRODUCT DEMO SPECIALIST Primary Care Provider [phone] Reason for Visit * Reason Onset Date Comments case clarification 07/31/2023 Encounter Details Date Type Department Care Team ([facility] st Contact Info) Description 07/31/2023 Telephone [facility] ADULT DENTAL [address] [place] [address] Camron Rios DDS [address] [place], [place] [phone] case clarification Social History Tobacco Use Types [...] it a metal clasp or clear clasp? [facility] contact lab for clarification DR documented in this encounter Plan of Treatment Upcoming Encounters Date Type Department Care Team (Late st Contact Info) Description 09/24/2024 2:00 PM EDT Office Visit [facility] [address] [place] [address] Tierney Goncalves [facility] [address] [place] [address] documented as of this encounter Visit Diagnoses Not on filedocumented in this encounter Additional Health Concerns Assessment Noted Time PHQ-9 Depression Total Score: 0 05/16/19 24 3:22 PM EST documented as of this encounter Care Teams Sales Operations Coordinator Relationship Specialty Start Date End Date Tierney Goncalves FNP [address] [place] [address] PCP - General Family Medicine 12/27/21 documented as of this encounter
--- OUTSIDE RECORDS SUMMARY | 2024-08-04 06:06 | XMS_ITS | Encounter Summary ---
Author Organization [employer] Address [address] [place] [id number] Care Team Providers Care Global Marketing Specialist Name Role Phone [facility] Primary Care Provider [phone] Reason for Visit * Reason Comments Med Refill Encounter Details Date Type Department Care Team ([facility] Contact Info) Description 07/21/2022 Refill [facility] [address] [place] [address] [facility] [address] [place] [address] Joint pain in both hands Social History [...] In the last 10 days, have yo driss been in contact with someone who was confirmed or suspected to have Coronavirus/COVID-19? No / Unsure 07/18/2022 9:10 AM EDT documented as of this encounter Plan of Treatment Upcoming Encounters Date Type Department Care Team ([facility] Contact Info) Description 09/24/2024 2:00 PM EDT Office Visit [facility] [address] [place] [address] Tierney Goncalves FNP [address] [place] [address] documented as of this encounter Visit Diagnoses Diagnosis Joint pain in both hands documented in this encounter Additional Health Concerns Assessment Noted Time PHQ-9 Depression Total Score: 0 05/18/19 23 2:28 PM EST documented as of this encounter Care Teams Global Marketing Specialist Relationship Specialty Start Date End Date Tierney Goncalves FNP [address] [place] [address] PCP - General Family Medicine 12/27/21 documented as of this encounter
--- OUTSIDE RECORDS SUMMARY | 2024-08-04 06:06 | XMS_ITS | Encounter Summary ---
Author Organization [employer] Address [address] [place] [address] Care Team Providers Care Environmental Scientist Name Role Phone Tierney Goncalves SUPERVISOR MIRROR FABRICATION Primary Care Provider [phone] Encounter Details Date Type Department Care Team (Late st Contact Info) Description 11/13/2023 Orders Only [facility] [address] [place] [address] ProviderEvon MD Social History Tobacco Use Types [...] Description 09/24/2024 2:00 PM EDT Office Visit [facility] [address] [place] [address] Tierney Goncalves FNP [address] [place] [address] documented as of this encounter Procedures Procedure [...] documented as of this encounter Care Teams Environmental Scientist Relationship Specialty Start Date End Date Tierney Goncalves FNP [address] [place] [id number] PCP - General Family Medicine 12/27/21 documented as of this encounter
[2024-08-04 06:07] LABS: Alanine Aminotransferase 468 U/L (0-31); Alkaline Phosphatase 132 U/L (39-117); Anion Gap 10 (12-20); Aspartate Amino Transferase 469 U/L (5-31); Bilirubin Total 0.8 mg/dL (0.0-1.0); Blood Urea Nitrogen 23 mg/dL (9-16); Calcium 8.8 mg/dL (8.4-10.2); Carbon Dioxide 21 mmol/L (22-29); Chloride 110 mmol/L (96-108); Creatinine Clr Calc Pharmacy 59.5; Estimated Glomerular Filt Rate > 60; Glucose Random 113 mg/dL (60-115); Lipase 9 U/L (8-78); Potassium 3.2 mmol/L (3.3-5.1); Sodium 138 mmol/L (135-145); Total Protein 6.9 g/dL (6.5-8.0)
--- OUTSIDE RECORDS SUMMARY | 2024-08-04 06:07 | XMS_ITS | Encounter Summary ---
Author Organization [employer] Address [address] [place] [address] [address], [place] [address] Care Team Providers Care Electrical Assembly Supervisor Name Role Phone [facility] Primary Care Provider [phone] Reason for Visit * Reason Onset Date Comments Nurse Triage 06/05/2024 Encounter Details Date Type Department Care Team ([facility] st Contact Info) Description 06/05/2024 Telephone [facility] [address] [place] [address] [facility] [address] [place], [place] [phone] Nurse Triage Social History Tobacco Use Types [...] Description 09/24/2024 2:00 PM EDT Office Visit [facility] [address] [place] [address] Tierney Goncalves FNP [address] [place] [address] documented as of this encounter Visit Diagnoses Not on filedocumented in this encounter Additional Health Concerns Assessment Noted Time PHQ-9 Depression Total Score: 0 05/16/19 24 3:22 PM EST documented as of this encounter Care Teams Electrical Assembly Supervisor Relationship Specialty Start Date End Date Tierney Goncalves FNP [address] [place] [address] PCP - General Family Medicine 12/27/21 documented as of this encounter
--- OUTSIDE RECORDS SUMMARY | 2024-08-04 06:07 | XMS_ITS | Encounter Summary ---
Author Organization [employer] Address [address] [facility] [address] [place] [address] Care Team Providers Care Valance Cutter Name Role Phone [facility] Primary Care Provider [phone] Reason for Visit * Reason Onset Date Comments Prior Authorization 05/16/2024 Encounter Details Date Type Department Care Team (Late st Contact Info) Description 05/16/2024 Telephone [facility] [address] [place] [address] [facility] [address] [place] [address] Prior Authorization Social History Tobacco Use Types [...] Description 09/24/2024 2:00 PM EDT Office Visit [facility] [address] [place] [address] Tierney Goncalves FNP [address] [place] [address] documented as of this encounter Visit Diagnoses Not on filedocumented in this encounter Additional Health Concerns Assessment Noted Time PHQ-9 Depression Total Score: 0 05/16/19 24 3:22 PM EST documented as of this encounter Care Teams Valance Cutter Relationship Specialty Start Date End Date Tierney Goncalves FNP [address] [place] [address] PCP - General Family Medicine 12/27/21 documented as of this encounter
--- OUTSIDE RECORDS SUMMARY | 2024-08-04 06:07 | XMS_ITS | Encounter Summary ---
Author Organization [employer] Address [address] [place] [address] Care Team Providers Care Senior Copywriter Name Role Phone Tierney Goncalves DUMP MOTOR OPERATOR Primary Care Provider [phone] Encounter Details Date Type Department Care Team (Late st Contact Info) Description 08/04/2024 Orders Only GENERIC EXTERNAL DATA DEPARTMENT Provider, Generic External Data Social History Tobacco Use Types Packs/Day Years [...] Description 09/24/2024 2:00 PM EDT Office Visit [facility] [address] [place], [place] [phone] [facility] [address] [place], [place] [phone] documented as of this encounter Procedures Procedure Name Priority Date/Time Associated Diagnosis Comments CBC WITH AUTO DIFFERENTIAL Routine 08/04/2024 5:48 AM EDT documented in this encounter Results * (ABNORMAL) CBC auto differential (08/04/2024 5:48 AM EDT) White Blood Count 3.8(L) 4.8 - 10.8 X10*3/uL [facility] Red Blood Count 4.08(L) 4.20 - 5.50 X10*6/uL [facility] Hemoglobin 12.3 12.0 - 16.0 g/dl [facility] Hematocrit 36.6(L) 37.0 - 47.0 % [facility] Mean Corpuscular Volume 89.7 80.0 - 98.0 fL [facility] Mean Corpuscular Hemoglobin 30.1 27.0 - 33.0 pg [facility] Mean Corpuscular HGB Conc 33.6 31.0 - 35.0 g/dl [facility] Red Cell Distribution Width 12.5 11.0 - 16.0 % [facility] Platelet Count 232 160 - 400 X10*3/uL [facility] Mean Platelet Volume 9.4 9.4 - 12.3 fL [facility] Neutrophils Percent Auto 89.6(H) 45 - 73 % [facility] Imm Gran Pct Auto 0.3 0.0 - 0.4 % [facility] Lymphocytes Percent Auto 4.0(L) 20 - 40 % [facility] Monocytes Percent Auto 4.0 2 - 11 % [facility] Eosinophils Percent Auto 1.8 0 - 4 % [facility] Basophils Percent Auto 0.3 0 - 2 % [facility] NRBC Pct Auto 0.0 0.0 - 0.2 /100WBC [facility] Neutrophils Absolute Auto 3.4 2.0 - 8.3 x10*3/uL [facility] Imm Gran Abs Auto 0.01 0.00 - 0.03 X10*3/uL [facility] Lymphocytes Absolute Auto 0.2(L) 1.2 - 4.9 X10*3/uL [facility] Monocytes Absolute Auto 0.2 0.1 - 1.2 X10*3/uL [facility] Eosinophils Absolute Auto 0.1 0.0 - 0.4 X10*3/uL [facility] Basophils Absolute Auto 0.0 0.0 - 0.2 X10*3/uL [facility] NRBC Abs Auto 0.000 0.0 - 0.012 X10*3/uL [facility] 08/04/2024 5:48 AM EDT 08/04/2024 5:51 AM EDT us Generic External Data Provider LAB BLOOD ORDERAB LES Final Result [facility] [address] [place] [address] [phone] documented in this encounter Visit Diagnoses Not on filedocumented in this encounter Additional Health Concerns Assessment Noted Time PHQ-9 Depression Total Score: 0 05/16/19 24 3:22 PM EST documented as of this encounter Care Teams Senior Copywriter Relationship Specialty Start Date End Date Tierney Goncalves FNP [address] [place] [address] PCP - General Family Medicine 12/27/21 documented as of this encounter
[2024-08-04] MEDS: ondansetron HCL 4 MG/2 ML VIAL IVPUSH (06:43)
[2024-08-04] MEDS: Loperamide HCl 2 MG CAPSULE 4 MG PO (06:43)
[2024-08-04] MEDS: Morphine Sulfate 2 MG/ML CARTRIDGE IVPUSH (06:43)
[2024-08-04] MEDS: Potassium Chloride Packet 20 MEQ PACKET 40 MEQ PO (07:03)
[2024-08-04] MEDS: Lactated Ringers 2,000 ML 999 ML IV (07:03)
--- NOTE | 2024-08-04 07:03 | PC.NURSE ---
medication/IVF administered per provider order. pt previously medicated for pain by previous RN - effectiveness pending. lights dimmed to promote comfort. plan of care ongoing. call avendano placed within reach.
--- NOTE | 2024-08-04 07:38 | PC.NURSE ---
repeat labs obtained/sent to lab. pt pending US to be completed at this time.
--- NOTE | 2024-08-04 07:53 | ED.ABDPAIN ---
HPI - Abdominal Pain General Chief Complaint: Abdominal Pain Stated Complaint: abd pain Time Seen by Provider: 08/04/24 06:17 Source: patient Mode of arrival: ambulatory Limitations: no limitations History of Present Illness ED Provider: Dr. Krystina Chan HPI narrative: Patient comes in the emergency room complaining of couple days of abdominal cramping and diarrhea. Patient states that she has been drinking Pepto-Bismol without any significant relief. Patient reports that after drinking Pepto-Bismol she started having black stool. Patient reports that she had a mild temperature of 100 degrees friend had a home x1. At this time, patient feels a bit crampy, no significant abdominal pain. Patient concerned that she might be getting dehydrated. Patient denies being on blood thinners. Related Data Home Medications ?Medication ?Instructions ?Recorded ?Confirmed diphenhydramine HCl 25 mg capsule 25 mg PO BEDTIME PRN Insomnia 11/03/20 04/21/24 capsaicin 0.025 % topical cream 0.025 appl topical BID PRN Pain 07/24/22 04/21/24 diclofenac sodium 1 % topical gel 1 g topical BID PRN Pain 07/24/22 04/21/24 lidocaine 5 % topical ointment 5 appl topical Q OTHER DAY PRN Pain 07/24/22 04/21/24 amitriptyline 10 mg tablet 5 mg PO BEDTIME PRN Insomnia 08/28/22 04/21/24 omega 6-shb-xln-fish oil 1,000 mg 2 cap PO DAILY 09/01/22 04/21/24 (120 mg-180 mg) capsule (Fish Oil) duloxetine 40 mg capsule,delayed 40 mg PO DAILY 09/21/22 04/21/24 release Centrum Silver Women 1 tab PO DAILY 11/28/22 04/21/24 acetaminophen 650 mg 650 mg PO TID 04/21/24 04/21/24 tablet,extended release Previous Rx's ?Medication ?Instructions ?Recorded topiramate 50 mg tablet 50 mg PO DAILY #30 tabs 02/24/22 sennosides 8.6 mg tablet (Senna 17.2 mg (2 x 8.6 mg) PO BEDTIME 04/16/24 Laxative) #60 tabs pantoprazole 40 mg tablet,delayed 40 mg PO DAILY@0630 #30 tabs 05/26/24 release naloxone 4 mg/actuation nasal 4 mg intranasal Q2M PRN opioid 06/13/24 spray (Narcan) overdose #2 ea oxycodone 5 mg tablet 5 mg PO BID PRN pain 10 days #20 06/13/24 tabs ondansetron 4 mg disintegrating 4 mg PO Q8H PRN nausea and 08/04/24 tablet vomiting #20 tabs Allergies Allergy/AdvReac Type Severity Reaction Status Date / Time No Known Allergies Allergy Verified 08/04/24 05:56 [No Known Allergies*] Review of Systems Review of Systems Constitutional : No Weight loss, No Fever, No Chills, No Night Sweats, No Fatigue, No Malaise ENT/Mouth : No Hearing loss, No Ear Pain, No Nasal Congestion, No Sinus Pain, No Hoarseness, No sore throat, No Rhinorrhea, No Swallowing Difficulty Eyes: No Eye Pain, No Swelling, No Redness, No Foreign Body, No Discharge, No Vision Changes Cardiovascular : No Chest Pain, No SOB, No Dyspnea on Exertion, No Orthopnea, No Edema, No Palpitations Respiratory : No Cough, No Sputum, No Wheezing, No Smoke Exposure, No Dyspnea Gastrointestinal : Complaining of abdominal cramping and black diarrhea after taking Pepto-Bismol. Patient reports 4 episodes of diarrhea. Genitourinary : no irregular bleeding, No Dysuria, No Urinary Frequency, No Hematuria, No Urinary Incontinence, No Urgency, No Flank Pain, No Urinary Flow Changes, No Hesitancy Musculoskeletal : No joint pain, No Myalgias, No Joint Swelling Skin : No Skin Lesions, No rash Neuro : No Weakness, No Numbness, No Paresthesias, No Loss of Consciousness, No Dizziness, No Headache Psych : No Anxiety/Panic, No Depression, No SI/HI/AH/VH, No Social Issues, Heme/Lymph: No Bruising, No Bleeding,No Lymphadenopathy Endocrine : No Polyuria, No Polydipsia, No Temperature Intolerance PMFSH Past Medical History Medical History Cervical high risk HPV (human papillomavirus) test positive Fibromyalgia Elevated cholesterol Weight loss Karina's disease Non-toxic multinodular goiter Osteoarthritis of left hip Schatzki's ring Hiatal hernia Hx of migraines History of multinodular goiter IBS (irritable bowel syndrome) GERD (gastroesophageal reflux disease) Dysphagia Chronic pain syndrome Spondylosis, lumbar, with myelopathy Sacroiliitis Surgical History History of bilateral tubal ligation Hx of dilation and curettage Hx of arthroscopy of right knee History of esophagogastroduodenoscopy (EGD) Hx of colonoscopy History of cholecystectomy Family History Family History Father Unknown family medical history Mother Arthritis Diverticulitis Gastritis Breast cancer Chronic asthma Adenomatous colon polyp HTN (hypertension) Maternal Grandmother Colon cancer Daughter Hypothyroid Daughter Traveling blood clot in leg Obesity Prediabetes Social History Social History Household Members: Spouse Housing: House Are you a primary farm or ranch animal caretaker to a significant other at home: No Do you presently have visiting nurse or other home services: No Alcohol intake: never Patient Tobacco Use Status: Former Tobacco user Tobacco use type: Cigarette Years Smoked: 18 service: No Current occupational status: employed 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 Oriented X3. No acute distress. Eyes: Pupils equal, round and reactive to light. ENT: Pharynx normal. Neck: Normal inspection. Neck supple. No lymph nodes noted. No crepitus CVS: Normal heart rate and rhythm. Pulses normal. Normal S1 and S2 Respiratory: No respiratory distress. Breath sounds normal. No Wheezing. No rales Abdomen: Soft , mild discomfort to palpation, no rebound or guarding Skin: Skin warm and dry. Normal skin color. Normal skin turgor. Extremities: No lower extremity edema. No Lacerations. No Rash Neuro: Oriented X 3. No motor deficit. No sensory deficit. Moving all extremities. No slurred speech. CN 2 through 12 grossly intact Psych: calm, cooperative, normal affect Course Course Course Narrative: 950am 08/04/24 US normal, LFTs up CT scan possible appendicitis - notified Dr. Do - no tachycardia, no signs of sepsis at this time basic labs, cultures, lactic acid, empiric zosyn ordered infection suspected 950am discussed with Dr. Do 1010am does not feel this is appendicitis okay to send home no oral abx needed Medical Decision Making Medical Decision Making [facility] Narrative: My interpretation of labs: Patient's white blood cell count 3.8 which is at patient's baseline, rest of hematology at baseline, chemistry shows a potassium of 3.2, repleted p.o.. Patient's LFTs slightly bumped. T bili within normal limits, AST ALT in the 400s which is new for the patient. Patient does not have right upper quadrant pain. Patient receiving p.o. Imodium, IV morphine, potassium being repleted p.o. and Zofran. Ultrasound of the abdomen pending Sign out given to my colleague Dr. Skaggs Differential Diagnosis Differential Diagnoses: The differential diagnosis associated with the presentation includes (hepatitis, cholecystitis, choledocholithiasis) Admission/Observation Consideration of admission/observation: Escalation of care including admission/observation considered admit for further management Consult Healthcare Provider Management of the patient was discussed with: Licensed Mortgage Loan Officer (Dr. Do ) Lab Data [facility] Lab Attestation statement: I reviewed the patient's lab results. 08/04/24 05:48 08/04/24 05:48 Labs: Lab Results 08/04/24 08/04/24 08/04/24 Range/Units 05:48 07:29 08:24 WBC 3.8 L (4.8-10.8) X10*3/uL RBC 4.08 L (4.20-5.50) X10*6/uL Hgb 12.3 (12.0-16.0) g/dl Hct 36.6 L (37.0-47.0) % MCV 89.7 (80.0-98.0) fL MCH 30.1 (27.0-33.0) pg MCHC 33.6 (31.0-35.0) g/dl RDW 12.5 (11.0-16.0) % Plt Count 232 (160-400) X10*3/uL MPV 9.4 (9.4-12.3) fL Immature Gran % (Auto) 0.3 (0.0-0.4) % Neut % (Auto) 89.6 H (45-73) % Lymph % (Auto) 4.0 L (20-40) % Harrison % (Auto) 4.0 (2-11) % Eos % (Auto) 1.8 (0-4) % Baso % (Auto) 0.3 (0-2) % Lymph # (Auto) 0.2 L (1.2-4.9) X10*3/uL [place] # (Auto) 0.2 (0.1-1.2) X10*3/uL Eos # (Auto) 0.1 (0.0-0.4) X10*3/uL Baso # (Auto) 0.0 (0.0-0.2) X10*3/uL Abs Immat Gran (auto) 0.01 (0.00-0.03) X10*3/uL Absolute Neuts (auto) 3.4 (2.0-8.3) x10*3/uL Absolute Nucleated RBC 0.000 (0.0-0.012) X10*3/uL Nucleated RBC % (auto) 0.0 (0.0-0.2) /100WBC Sodium 138 (135-145) mmol/L Potassium 3.2 L D (3.3-5.1) mmol/L Chloride 110 H (96-108) mmol/L Carbon Dioxide 21 L (22-29) mmol/L Anion Gap 10 L (12-20) BUN 23 H (9-16) mg/dL Creatinine 0.81 (0.5-1.4) mg/dL Estim Creat Clear Calc 59.5 Estimated GFR > 60 Random Glucose 113 (60-115) mg/dL Lactic Acid (0.5-2.0) mmol/L Calcium 8.8 (8.4-10.2) mg/dL Magnesium 2.0 (1.6-2.6) mg/dL Total Bilirubin 0.8 (0.0-1.0) mg/dL AST 469 H (5-31) U/L ALT 468 H (0-31) U/L Alkaline Phosphatase 132 H (39-117) U/L Total Protein 6.9 (6.5-8.0) g/dL Albumin 4.0 (3.5-5.0) g/dL Lipase 9 (8-78) U/L Urine Color Yellow Urine Appearance Clear Urine pH 6.0 (5.0-9.0) Ur Specific [place] 1.015 (1.005-1.025) Urine Protein Negative (Neg-Trace) mg/dL Urine Glucose (UA) Negative (Negative) mg/dL Urine Ketones 15 (Negative) mg/dL Urine Blood Moderate (2+) H (Negative) Urine Nitrite Negative (Negative) Ur Leukocyte Esterase Negative (Negative) Urine RBC 11-20 H (0-2) /HPF Urine WBC 0-5 (0-5) /HPF Ur Squamous Epith Cells 0-2 (0-2) /HPF Urine Bacteria None Seen (None Seen) Hyaline Casts 0-2 (0-2) /LPF Acetaminophen < 3 (<30) mcg/mL Hepatitis A IgM Ab Nonreactive (Nonreactive) Hep Bs Antigen Negative (Negative) Hep Bs Antibody REACTIVE (Nonreactive) Hep B Core Total Ab Nonreactive (Nonreactive) Hepatitis C Ab (EIA) Nonreactive (Nonreactive) Influenza Type A (PCR) (Negative) Influenza Type B (PCR) (Negative) RSV RNA Qual (PCR) (Negative) SARS-CoV-2 RNA (RT-PCR) (Negative) 08/04/24 08/04/24 Range/Units 09:22 10:03 WBC (4.8-10.8) X10*3/uL RBC (4.20-5.50) X10*6/uL Hgb (12.0-16.0) g/dl Hct (37.0-47.0) % MCV (80.0-98.0) fL MCH (27.0-33.0) pg MCHC (31.0-35.0) g/dl RDW (11.0-16.0) % Plt Count (160-400) X10*3/uL MPV (9.4-12.3) fL Immature Gran % (Auto) (0.0-0.4) % Neut % (Auto) (45-73) % Lymph % (Auto) (20-40) % Harrison % (Auto) (2-11) % Eos % (Auto) (0-4) % Baso % (Auto) (0-2) % Lymph # (Auto) (1.2-4.9) X10*3/uL [place] # (Auto) (0.1-1.2) X10*3/uL Eos # (Auto) (0.0-0.4) X10*3/uL Baso # (Auto) (0.0-0.2) X10*3/uL Abs Immat Gran (auto) (0.00-0.03) X10*3/uL Absolute Neuts (auto) (2.0-8.3) x10*3/uL Absolute Nucleated RBC (0.0-0.012) X10*3/uL Nucleated RBC % (auto) (0.0-0.2) /100WBC Sodium (135-145) mmol/L Potassium (3.3-5.1) mmol/L Chloride (96-108) mmol/L Carbon Dioxide (22-29) mmol/L Anion Gap (12-20) BUN (9-16) mg/dL Creatinine (0.5-1.4) mg/dL Estim Creat Clear Calc Estimated GFR Random Glucose (60-115) mg/dL Lactic Acid 0.9 (0.5-2.0) mmol/L Calcium (8.4-10.2) mg/dL Magnesium (1.6-2.6) mg/dL Total Bilirubin (0.0-1.0) mg/dL AST (5-31) U/L ALT (0-31) U/L Alkaline Phosphatase (39-117) U/L Total Protein (6.5-8.0) g/dL Albumin (3.5-5.0) g/dL Lipase (8-78) U/L Urine Color Urine Appearance Urine pH (5.0-9.0) Ur Specific [place] (1.005-1.025) Urine Protein (Neg-Trace) mg/dL Urine Glucose (UA) (Negative) mg/dL Urine Ketones (Negative) mg/dL Urine Blood (Negative) Urine Nitrite (Negative) Ur Leukocyte Esterase (Negative) Urine RBC (0-2) /HPF Urine WBC (0-5) /HPF Ur Squamous Epith Cells (0-2) /HPF Urine Bacteria (None Seen) Hyaline Casts (0-2) /LPF Acetaminophen (<30) mcg/mL Hepatitis A IgM Ab (Nonreactive) Hep Bs Antigen (Negative) Hep Bs Antibody (Nonreactive) Hep B Core Total Ab (Nonreactive) Hepatitis C Ab (EIA) (Nonreactive) Influenza Type A (PCR) NEGATIVE (Negative) Influenza Type B (PCR) NEGATIVE (Negative) RSV RNA Qual (PCR) NEGATIVE (Negative) SARS-CoV-2 RNA (RT-PCR) NEGATIVE (Negative) Independent Interpretation I performed an independent interpretation of an: CT Scan (?appendicitis) Radiology Impression Discussion of test interpretation with radiology: I have reviewed the radiologist's reading. External Record Review External record reviewed: Outpatient record Prescription Management I considered prescription management with: Other Medications Administered Discontinued Medications Generic Name Dose Route Start Last Admin Trade Name Freq PRN Reason Stop Dose Admin Lactated Ringer's 2,000 mls @ 999 mls/hr 08/04/24 06:45 08/04/24 09:54 Lr IV 08/04/24 08:45 Infused .Q2H1M CHERYL Infusion Piperacillin Sod/Tazobactam 50 mls @ 100 mls/hr 08/04/24 09:51 08/04/24 10:11 Sod 3.375 gm/ Sodium Chloride IV 08/04/24 10:20 Not Given ONCE ONE Iohexol 100 ml 08/04/24 09:09 08/04/24 09:09 Iohexol 350 Mg/Ml 100 Ml Infus..Btl IV 08/04/24 09:10 85 ml ONCE ONE Administration Loperamide HCl 4 mg 08/04/24 06:34 08/04/24 06:43 Loperamide Hcl 2 Mg Capsule PO 08/04/24 06:35 4 mg ONCE ONE Administration Morphine Sulfate 2 mg 08/04/24 06:34 08/04/24 06:43 Morphine Sulfate 2 Mg/Ml Cartridge IVPUSH 08/04/24 06:35 2 mg ONCE ONE Administration Protocol Morphine Sulfate 4 mg 08/04/24 08:57 08/04/24 09:11 Morphine Sulfate 4 Mg/Ml Cartridge IVPUSH 08/04/24 08:58 4 mg ONCE ONE Administration Protocol Ondansetron HCl 4 mg 08/04/24 06:34 08/04/24 06:43 Ondansetron Hcl 4 Mg/2 Ml Vial IVPUSH 08/04/24 06:35 4 mg ONCE ONE Administration Potassium Chloride 40 meq 08/04/24 06:54 08/04/24 07:03 Potassium Chloride Packet 20 Meq Packet PO 08/04/24 06:55 40 meq ONCE ONE Administration Critical Care Time Critical Care Time Critical Care Time: Yes Total Critical Care Time: 35 Attestation: I have personally provided critical care time. Time includes review of lab data, radiology results, discussion with consultants, and monitoring for potential decompensation. Intervention performed as documented. Discharge Plan Discharge Clinical Impression: Acute dehydration, Elevated liver function tests, Acute hypokalemia Diarrhea Qualifiers: Diarrhea type: unspecified type Qualified Code(s): R19.7 - Diarrhea, unspecified Patient Disposition: Home, Self-Care Instructions: Dehydration (ED), Hypokalemia (ED), Acute Diarrhea (ED), Abdominal Pain (ED) Additional Instructions: you need to repeat your liver enzyme test with your doctor in 48 hours return for high fevers, severe pain, unable to eat or drink, blood stools avoid tylenol rest and stay hydrated eat a bland diet and advance slowly Prescriptions: New ondansetron 4 mg tablet,disintegrating 4 mg PO Q8H PRN (Reason: nausea and vomiting) Qty: 20 0RF No Action topiramate 50 mg tablet 50 mg PO DAILY Qty: 30 0RF pantoprazole 40 mg tablet,delayed release (DR/EC) 40 mg PO DAILY@0630 Qty: 30 6RF omega 8-lbt-jbf-fish oil [Fish Oil] 1,000 mg (120 mg-180 mg) Capsule 2 cap PO DAILY Centrum Silver Women 1 tab PO DAILY diphenhydramine HCl 25 mg capsule 25 mg PO BEDTIME PRN (Reason: Insomnia) capsaicin 0.025 % cream 0.025 appl topical BID PRN (Reason: Pain) lidocaine 5 % ointment 5 appl topical Q OTHER DAY PRN (Reason: Pain) diclofenac sodium 1 % gel 1 g topical BID PRN (Reason: Pain) duloxetine 40 mg capsule,delayed release(DR/EC) 40 mg PO DAILY sennosides [Senna Laxative] 8.6 mg tablet 17.2 mg PO BEDTIME Qty: 60 6RF amitriptyline 10 mg tablet 5 mg PO BEDTIME PRN (Reason: Insomnia) acetaminophen 650 mg tablet extended release 650 mg PO TID oxycodone 5 mg tablet 5 mg PO BID PRN (Reason: pain) 10 Days Qty: 20 0RF Rx Instructions: Partial Fill upon patient request. naloxone [Narcan] 4 mg/actuation spray,non-aerosol 4 mg intranasal Q2M PRN (Reason: opioid overdose) Qty: 2 0RF Rx Instructions: spray 1 dose into ONE nostril; alternate nostrils w each dose until help arrives Stand Alone Forms: Work/School Release Print Language: Telugu
[2024-08-04 07:59] LABS: Acetaminophen LAB < 3 mcg/mL (<30)
[2024-08-04 08:18] LABS: HBS Num1 60.76 mIU/mL (0-7.99); HBc Num1 0.08 S/CO (0.00-0.79); Hepatitis A Antibody IgM 0.17 Index (0-0.79); Hepatitis B Core Antibody Nonreactive (Nonreactive); Hepatitis B Surface Antigen Negative (Negative); ~HepC Num1 0.15 S/CO (0.00-0.79); ~Hepatitis A Antibody IgM Nonreactive (Nonreactive); ~Hepatitis B Surface Antibody REACTIVE (Nonreactive); ~Hepatitis C Antibody Nonreactive (Nonreactive)
[2024-08-04 08:22] VITALS: BP 96/58; PULSE 69; RESP 16; TEMP 36.7; O2SAT 97
[2024-08-04 08:31] LABS: Appearance Urine Clear; Color Urine Yellow; Glucose Urine UA Negative (Negative); Leukocyte Esterase Urine Negative (Negative); Nitrite Urine Negative (Negative); Specific Gravity - Urine 1.015 (1.005-1.025); UMIC TRIGGER UACC YES; Urine Blood Moderate (2+) (Negative); Urine Ketones 15 mg/dL (Negative); Urine Protein Negative (Neg-Trace)
[2024-08-04 08:36] LABS: Bacteria Urine None Seen (None Seen); Hyaline Casts Urine 0-2 /LPF (0-2); Squamous Epithelial Cell Urine 0-2 /HPF (0-2); WBC Urine 0-5 /HPF (0-5)
[2024-08-04] MEDS: iohexoL 350 MG/ML 100 ML INFUS..BTL IV (09:09)
[2024-08-04] MEDS: Morphine Sulfate 4 MG/ML CARTRIDGE IVPUSH (09:11)
--- NOTE | 2024-08-04 09:12 | PC.NURSE ---
pt verbalizing increase in lower abd pain. pt medicated per provider order. effectiveness pending. pt waiting for CT to be completed at this time. plan of care ongoing.
--- NOTE | 2024-08-04 10:06 | PC.NURSE ---
pt speaking w/ general surgery in regards to plan of care at this time.
--- NOTE | 2024-08-04 10:11 | P.CONGS_ITS ---
History of Present Illness Consult details Consult date: 08/04/24 Narrative: Patient was a pleasant 64-year-old female who presents here with a 1-2 day history of generalized abdominal pain and diarrhea. She had 4 bouts of diarrhea yesterday and another about this morning. Because of progression of symptoms, she presents to the emergency department. She has never had such issues before. No unusual diet. No sick contacts. No new meds. No recent foreign travel. Chart was reviewed and patient evaluated. Patient was status post laparoscopic cholecystectomy a few years ago. [facility] Past Medical History Medical History Cervical high risk HPV (human papillomavirus) test positive Fibromyalgia Elevated cholesterol Weight loss Karina's disease Non-toxic multinodular goiter Osteoarthritis of left hip Schatzki's ring Hiatal hernia Hx of migraines History of multinodular goiter IBS (irritable bowel syndrome) GERD (gastroesophageal reflux disease) Dysphagia Chronic pain syndrome Spondylosis, lumbar, with myelopathy Sacroiliitis Family History Family History Father Unknown family medical history Mother Arthritis Diverticulitis Gastritis Breast cancer Chronic asthma Adenomatous colon polyp HTN (hypertension) Maternal Grandmother Colon cancer Daughter Hypothyroid Daughter Traveling blood clot in leg Obesity Prediabetes Surgical History Surgical History History of bilateral tubal ligation Hx of dilation and curettage Hx of arthroscopy of right knee History of esophagogastroduodenoscopy (EGD) Hx of colonoscopy History of cholecystectomy Social History Social History Household Members: Spouse Housing: House Are you a primary outdoor emergency care technician to a significant other at home: No Do you presently have visiting nurse or other home services: No Alcohol intake: never Patient Tobacco Use Status: Former Tobacco user Tobacco use type: Cigarette Years Smoked: 18 Smoked in Last 30 Days: No Use of substances other than those prescribed or required for medical reasons: No Advance Directives: No Advance Directives Information Provided: Yes Do you have a plan to hurt others: No Plan Patient : No service: No Current occupational status: employed 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 Meds Allergies Allergy/AdvReac Type Severity Reaction Status Date / Time No Known Allergies Allergy Verified 08/04/24 05:56 [No Known Allergies*] Home Medications ?Medication ?Instructions ?Recorded ?Confirmed ?Last Taken ?Type diphenhydramine HCl 25 mg capsule 25 mg PO BEDTIME PRN Insomnia 11/03/20 04/21/24 11/05/23 History capsaicin 0.025 % topical cream 0.025 appl topical BID PRN Pain 07/24/22 04/21/24 Unknown History diclofenac sodium 1 % topical gel 1 g topical BID PRN Pain 07/24/22 04/21/24 Unknown History lidocaine 5 % topical ointment 5 appl topical Q OTHER DAY PRN Pain 07/24/22 04/21/24 Unknown History amitriptyline 10 mg tablet 5 mg PO BEDTIME PRN Insomnia 08/28/22 04/21/24 11/05/23 History omega 7-kho-tws-fish oil 1,000 mg 2 cap PO DAILY 09/01/22 04/21/24 03/03/24 History (120 mg-180 mg) capsule (Fish Oil) duloxetine 40 mg capsule,delayed 40 mg PO DAILY 09/21/22 04/21/24 03/03/24 History release Centrum Silver Women 1 tab PO DAILY 11/28/22 04/21/24 03/03/24 History acetaminophen 650 mg 650 mg PO TID 04/21/24 04/21/24 Unknown History tablet,extended release Physical Exam 2 Vital Signs: Vital Signs: Last Vital Signs Temp 98.1 F 08/04/24 08:22 Pulse 69 08/04/24 08:22 Resp 16 08/04/24 08:22 BP 96/58 L 08/04/24 08:22 Pulse Ox 97 08/04/24 08:22 O2 Del Method Room Air 08/04/24 08:22 BMI result Body Mass Index 22.8 Const: Other: Patient was awake alert very conversant. In no acute distress. GI: Other: Abdomen is soft. Diffusely mild periumbilical tenderness but no localized guarding, rebound, or rigidity. Symptoms were mainly periumbilical and left lower abdomen. Results Labs 08/04/24 05:48 08/04/24 05:48 Labs: Abnormal lab results 08/04/24 08/04/24 Range/Units 05:48 08:24 WBC 3.8 L (4.8-10.8) X10*3/uL RBC 4.08 L (4.20-5.50) X10*6/uL Hct 36.6 L (37.0-47.0) % Neut % (Auto) 89.6 H (45-73) % Lymph % (Auto) 4.0 L (20-40) % Lymph # (Auto) 0.2 L (1.2-4.9) X10*3/uL Potassium 3.2 L D (3.3-5.1) mmol/L Chloride 110 H (96-108) mmol/L Carbon Dioxide 21 L (22-29) mmol/L Anion Gap 10 L (12-20) BUN 23 H (9-16) mg/dL AST 469 H (5-31) U/L ALT 468 H (0-31) U/L Alkaline Phosphatase 132 H (39-117) U/L Urine Blood Moderate (2+) H (Negative) Urine RBC 11-20 H (0-2) /HPF Short CBC 08/04/24 Range/Units 05:48 WBC 3.8 L (4.8-10.8) X10*3/uL Hgb 12.3 (12.0-16.0) g/dl Hct 36.6 L (37.0-47.0) % Plt Count 232 (160-400) X10*3/uL BMP 08/04/24 05:48 Sodium 138 Potassium 3.2 L D Chloride 110 H Carbon Dioxide 21 L BUN 23 H Creatinine 0.81 Calcium 8.8 Liver Function 08/04/24 Range/Units 05:48 Total Bilirubin 0.8 (0.0-1.0) mg/dL AST 469 H (5-31) U/L ALT 468 H (0-31) U/L Alkaline Phosphatase 132 H (39-117) U/L Albumin 4.0 (3.5-5.0) g/dL Urine 08/04/24 Range/Units 08:24 Urine Color Yellow Urine Appearance Clear Urine pH 6.0 (5.0-9.0) Ur Specific [place] 1.015 (1.005-1.025) Urine Protein Negative (Neg-Trace) mg/dL Urine Glucose (UA) Negative (Negative) mg/dL All other labs normal. Assessment and Plan (1) Diarrhea: Qualifiers: Diarrhea type: unspecified type Qualified Code(s): R19.7 - Diarrhea, unspecified Status: Acute (2) Acute dehydration: Status: Acute Plan Patient currently is afebrile. No white count. CT scan very nonspecific findings. Along with history of several bouts of diarrhea, most probably patient has gastroenteritis/food poisoning/ GI bug. No acute surgical intervention at this time. Discussed the case with Dr. Skaggs, ER physician. Patient will be treated symptomatically, IV hydration, diet advance as tolerated , and if able to tolerating liquids, can follow-up with me as outpatient or with her medical doctor. Procedures Date of Service Date of Service: 08/04/24
--- NOTE | 2024-08-04 10:20 | PC.NURSE ---
abx discontinued by attempting PO challenge at this time.
[2024-08-04 10:26] LABS: Lactic Acid 0.9 mmol/L (0.5-2.0)
[2024-08-04 10:28] LABS: Influenza A PCR NEGATIVE (Negative); Influenza B PCR NEGATIVE (Negative); Resp Syncy Virus RNA Qual PCR NEGATIVE (Negative); SARS COV2 PCR INHOUSE NEGATIVE (Negative)
[2024-08-04 11:00] VITALS: BP 104/60; PULSE 73; RESP 16; TEMP 36.8; O2SAT 97
--- NOTE | 2024-08-04 11:06 | HO.ANESPROP2 ---
HPI - Anesthesia Eval Consult details Narrative: 64 yo female patient for Laparoscopic Appendectomy PMFSH Active Problems Active Problems: All Active Problems Acute hypokalemia (Acute) Elevated liver function tests (Acute) Acute dehydration (Acute) Diarrhea (Acute) Arthritis of carpometacarpal joint (Acute) De Quervain's tenosynovitis, left (Acute) Bilateral wrist pain (Acute) Left shoulder pain (Acute) SOB (shortness of breath) (Acute) Lipoma (Acute) Status post repair of paraesophageal diaphragmatic hernia (Acute) Steatosis, liver (Acute) Arthritis of right knee (Acute) Right knee pain (Acute) Pre-op evaluation (Acute) HPV in female (Acute) Postcoital bleeding (Acute) Heart palpitations (Acute) Muscle spasms of neck (Acute) Left knee pain (Acute) Cervical spondylosis (Acute) Cervical radiculopathy (Acute) Achalasia (Acute) Rectal bleeding (Acute) RUQ abdominal pain (Acute) Dysplasia of cervix, low grade (PADMINI 1) (Acute) Osteoarthritis of right knee (Acute) Osteoarthritis of left knee (Acute) Myoma (Acute) Osteoarthritis of patellofemoral joint (Acute) Postmenopausal bleeding (Acute) Well woman exam (Acute) Migraines (Acute) Painful arc syndrome of right shoulder (Acute) Weight loss, non-intentional (Acute) Polyarthralgia (Acute) Constipation (Acute) IBS (irritable bowel syndrome) (Acute) Neutropenia (Acute) Weight loss (Acute) Dysphagia (Acute) Cervical high risk HPV (human papillomavirus) test positive (Acute) GERD (gastroesophageal reflux disease) (Acute) Karina's disease (Acute) Non-toxic multinodular goiter (Acute) Osteoarthritis of left hip (Acute) Chronic pain syndrome (Acute) Spondylosis, lumbar, with myelopathy (Acute) Sacroiliitis (Acute) Past Medical History Medical History Cervical high risk HPV (human papillomavirus) test positive Fibromyalgia Elevated cholesterol Weight loss Karina's disease Non-toxic multinodular goiter Osteoarthritis of left hip Schatzki's ring Hiatal hernia Hx of migraines History of multinodular goiter IBS (irritable bowel syndrome) GERD (gastroesophageal reflux disease) Dysphagia Chronic pain syndrome Spondylosis, lumbar, with myelopathy Sacroiliitis Family History Family History Father Unknown family medical history Mother Arthritis Diverticulitis Gastritis Breast cancer Chronic asthma Adenomatous colon polyp HTN (hypertension) Maternal Grandmother Colon cancer Daughter Hypothyroid Daughter Traveling blood clot in leg Obesity Prediabetes Family history of problems with anesthesia: No Surgical History Surgical History History of bilateral tubal ligation Hx of dilation and curettage Hx of arthroscopy of right knee History of esophagogastroduodenoscopy (EGD) Hx of colonoscopy History of cholecystectomy History of Problems with Anesthesia: No Social History Social History Household Members: Spouse Housing: House Are you a primary assisted living care manager to a significant other at home: No Do you presently have visiting nurse or other home services: No Alcohol intake: never Patient Tobacco Use Status: Former Tobacco user Tobacco use type: Cigarette Years Smoked: 20 service: No Current occupational status: employed 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 Meds Allergies Allergy/AdvReac Type Severity Reaction Status Date / Time No Known Allergies Allergy Verified 08/04/24 05:56 [No Known Allergies*] Home Medications ?Medication ?Instructions ?Recorded ?Confirmed ?Last Taken ?Type diphenhydramine HCl 25 mg capsule 25 mg PO BEDTIME PRN Insomnia 11/03/20 04/21/24 11/05/23 History capsaicin 0.025 % topical cream 0.025 appl topical BID PRN Pain 07/24/22 04/21/24 Unknown History diclofenac sodium 1 % topical gel 1 g topical BID PRN Pain 07/24/22 04/21/24 Unknown History lidocaine 5 % topical ointment 5 appl topical Q OTHER DAY PRN Pain 07/24/22 04/21/24 Unknown History amitriptyline 10 mg tablet 5 mg PO BEDTIME PRN Insomnia 08/28/22 04/21/24 11/05/23 History omega 2-oam-ori-fish oil 1,000 mg 2 cap PO DAILY 09/01/22 04/21/24 03/03/24 History (120 mg-180 mg) capsule (Fish Oil) duloxetine 40 mg capsule,delayed 40 mg PO DAILY 09/21/22 04/21/24 03/03/24 History release Centrum Silver Women 1 tab PO DAILY 11/28/22 04/21/24 03/03/24 History acetaminophen 650 mg 650 mg PO TID 04/21/24 04/21/24 Unknown History tablet,extended release Exam Height,Weight and Vital Signs: Height 5 ft 3 in Weight 58.5 kg Last Vital Signs Temp 98.3 F 08/04/24 11:00 Pulse 73 08/04/24 11:00 Resp 16 08/04/24 11:00 BP 104/60 08/04/24 11:00 Pulse Ox 97 08/04/24 11:00 O2 Del Method Room Air 08/04/24 11:00 Pertinent Lab Results Pertinent Lab Results: Laboratory Tests 08/04/24 08/04/24 08/04/24 05:48 07:29 08:24 WBC 3.8 L RBC 4.08 L Hgb 12.3 Hct 36.6 L MCV 89.7 MCH 30.1 MCHC 33.6 RDW 12.5 Plt Count 232 MPV 9.4 Immature Gran % (Auto) 0.3 Neut % (Auto) 89.6 H Lymph % (Auto) 4.0 L Nobles % (Auto) 4.0 Eos % (Auto) 1.8 Baso % (Auto) 0.3 Lymph # (Auto) 0.2 L Nobles # (Auto) 0.2 Eos # (Auto) 0.1 Baso # (Auto) 0.0 Abs Immat Gran (auto) 0.01 Absolute Neuts (auto) 3.4 Absolute Nucleated RBC 0.000 Nucleated RBC % (auto) 0.0 Sodium 138 Potassium 3.2 L D Chloride 110 H Carbon Dioxide 21 L Anion Gap 10 L BUN 23 H Creatinine 0.81 Estim Creat Clear Calc 59.5 Estimated GFR > 60 Random Glucose 113 Lactic Acid Calcium 8.8 Magnesium 2.0 Total Bilirubin 0.8 AST 469 H ALT 468 H Alkaline Phosphatase 132 H Total Protein 6.9 Albumin 4.0 Lipase 9 Urine Color Yellow Urine Appearance Clear Urine pH 6.0 Ur Specific [place] 1.015 Urine Protein Negative Urine Glucose (UA) Negative Urine Ketones 15 Urine Blood Moderate (2+) H Urine Nitrite Negative Ur Leukocyte Esterase Negative Urine RBC 11-20 H Urine WBC 0-5 Ur Squamous Epith Cells 0-2 Urine Bacteria None Seen Hyaline Casts 0-2 Acetaminophen < 3 Hepatitis A IgM Ab Nonreactive Hep Bs Antigen Negative Hep Bs Antibody REACTIVE Hep B Core Total Ab Nonreactive Hepatitis C Ab (EIA) Nonreactive Influenza Type A (PCR) Influenza Type B (PCR) RSV RNA Qual (PCR) SARS-CoV-2 RNA (RT-PCR) 08/04/24 08/04/24 09:22 10:03 WBC RBC Hgb Hct MCV MCH MCHC RDW Plt Count MPV Immature Gran % (Auto) Neut % (Auto) Lymph % (Auto) Nobles % (Auto) Eos % (Auto) Baso % (Auto) Lymph # (Auto) Nobles # (Auto) Eos # (Auto) Baso # (Auto) Abs Immat Gran (auto) Absolute Neuts (auto) Absolute Nucleated RBC Nucleated RBC % (auto) Sodium Potassium Chloride Carbon Dioxide Anion Gap BUN Creatinine Estim Creat Clear Calc Estimated GFR Random Glucose Lactic Acid 0.9 Calcium Magnesium Total Bilirubin AST ALT Alkaline Phosphatase Total Protein Albumin Lipase Urine Color Urine Appearance Urine pH Ur Specific [place] Urine Protein Urine Glucose (UA) Urine Ketones Urine Blood Urine Nitrite Ur Leukocyte Esterase Urine RBC Urine WBC Ur Squamous Epith Cells Urine Bacteria Hyaline Casts Acetaminophen Hepatitis A IgM Ab Hep Bs Antigen Hep Bs Antibody Hep B Core Total Ab Hepatitis C Ab (EIA) Influenza Type A (PCR) NEGATIVE Influenza Type B (PCR) NEGATIVE RSV RNA Qual (PCR) NEGATIVE SARS-CoV-2 RNA (RT-PCR) NEGATIVE Assessment and Plan Final Anesthetic Review Family History of Problems with Anesthesia: No History of Problems with Anesthesia: No
[2024-08-04 11:36] VITALS: BP 104/60; PULSE 73; RESP 16; TEMP 36.8; O2SAT 97
--- NOTE | 2024-08-04 11:36 | PC.NURSE ---
pt able to tolerate PO challenge s/p d/c.
== END 2024-08-04 11:41 | disposition home or self-care (01) ==
PROVIDERS: Emergency Medicine; Emergency Provider Emergency Medicine; PCP Registered Nurse
DX: R25.2 Cramp and spasm (principal); R19.7 Diarrhea, unspecified; R79.89 Other specified abnormal findings of blood chemistry; E86.0 Dehydration; E87.6 Hypokalemia; R10.2 Pelvic and perineal pain; R50.9 Fever, unspecified; Z79.899 Other long term (current) drug therapy; Z03.818 Encounter for observation for suspected exposure to other biological agents ruled out
CPT/HCPCS: 0241U; 36415; 74177; 76705; 80053; 80143; 81001; 83605; 83690; 83735; 85025; 86704; 86706; 86709; 86803; 87040; 87340; 93005; 96361; 96374; 96375; 96376; 99285; J2270; J2405; J2543; J7120; Q9967

== ENCOUNTER → 2024-08-04 06:02 | Outpatient (BNV) | payer OTHER, SELFPAY | PROVIDERS: Emergency Provider Emergency Medicine; PCP Registered Nurse; Visit Provider Internal Medicine Cardiovascular Disease | DX: R10.9 Unspecified abdominal pain (principal) | CPT/HCPCS: 93010 ==

== ENCOUNTER → 2024-08-04 06:02 | Outpatient (BNV) | payer OTHER, SELFPAY | PROVIDERS: Emergency Provider Emergency Medicine; PCP Registered Nurse; Visit Provider Surgery | DX: R19.7 Diarrhea, unspecified (principal); E86.0 Dehydration | CPT/HCPCS: 99284 ==

== ENCOUNTER → 2024-08-04 07:10 | Outpatient (BNV) | payer OTHER, SELFPAY | PROVIDERS: Emergency Provider Emergency Medicine; PCP Registered Nurse; Visit Provider Radiology Diagnostic Radiology | DX: K57.30 Diverticulosis of large intestine without perforation or abscess without bleeding (principal); R94.5 Abnormal results of liver function studies; R19.7 Diarrhea, unspecified | CPT/HCPCS: 74177; 76705 ==

== ENCOUNTER 2024-08-06 10:09 | Outpatient (REF) | payer OTHER, SELFPAY ==
[2024-08-06 12:30] LABS: Alanine Aminotransferase 464 U/L (0-31); Alkaline Phosphatase 225 U/L (39-117); Anion Gap 9 (12-20); Aspartate Amino Transferase 165 U/L (5-31); Bilirubin Total 0.4 mg/dL (0.0-1.0); Blood Urea Nitrogen 12 mg/dL (9-16); Carbon Dioxide 26 mmol/L (22-29); Chloride 109 mmol/L (96-108); Estimated Glomerular Filt Rate > 60; Glucose Random 84 mg/dL (60-115); Potassium 3.5 mmol/L (3.3-5.1); Sodium 140 mmol/L (135-145); Total Protein 7.1 g/dL (6.5-8.0)
== END 2024-08-06 10:10 | disposition home or self-care (01) ==
LOC: HO.HHCL 10:09
PROVIDERS: Visit Provider Nurse Practitioner
DX: R74.8 Abnormal levels of other serum enzymes (principal); E87.6 Hypokalemia
CPT/HCPCS: 36415; 80053

== ENCOUNTER 2024-08-26 06:21 | Outpatient (REF) | payer OTHER, SELFPAY ==
--- NOTE | ~2024-08-26 | FL_ITS ---
EXAMINATION: FL GUIDANCE ONLY HISTORY: M47.812 - Spondylosis without myelopathy or radiculopathy, cervical region COMPARISON: None available. TECHNIQUE: Fluoroscopy time: 0.5 minutes. Cumulative Dose: 1.15 mGy. DAP: 0.0167 mGym2 Images: 8. FINDINGS: Images demonstrate needles and contrast material in the neck bilaterally. FL/FL guidance in treatment room IMPRESSION: Fluoroscopy during procedure. Please see procedure report for additional information. Electronically signed by: Gasper Montez MD 08/27/2024 02:42 PM EDT
== END 2024-08-26 06:22 | disposition home or self-care (01) ==
LOC: CF 06:21
PROVIDERS: Visit Provider Anesthesiology
DX: M47.812 Spondylosis without myelopathy or radiculopathy, cervical region (principal)
CPT/HCPCS: 64490; 64491; J2003; J2795; Q9967

== ENCOUNTER 2024-08-26 10:47 | Outpatient (AMB) | payer OTHER, SELFPAY ==
[2024-08-26 11:00] VITALS: BP 96/68; PULSE 55; RESP 16; O2SAT 100
--- NOTE | 2024-08-26 11:00 | A.OFFVIS_ITS ---
Vital Signs 08/26/24 11:00 08/26/24 11:35 BP 96/68 112/74 Blood Pressure Location Lt brachial Lt brachial Position Sitting Sitting Respiration 16 16 Pulse 55 55 Pulse Source Pulse Oximeter Pulse Oximeter Pulse Oximetry (%) 100 100 Oxygen Delivery Method Room Air Room Air Intake Visit Reasons: BILATERAL DIAGNOSTIC C4, C5, C6 MBB Aircraft Riveter Required: No Allergies No Known Allergies [No Known Allergies*] Allergy (Verified 08/26/24 11:00) Medication List - Last Reconciled 08/26/24 by Malika Schilling LPN acetaminophen ER 650 mg PO TID amitriptyline 5 mg PO BEDTIME PRN capsaicin 0.025% 0.025 appl topical BID PRN [Centrum Silver Women 1 tab PO DAILY] diclofenac sodium 1% 1 g topical BID PRN diphenhydramine HCl 25 mg PO BEDTIME PRN duloxetine 40 mg PO DAILY lidocaine 5% 5 appl topical Q OTHER DAY PRN naloxone 4 mg/actuation (Narcan) 4 mg intranasal Q2M PRN omega 6-mek-cnz-fish oil 1,000 (120-180) mg (Fish Oil) 2 caps PO DAILY ondansetron 4 mg PO Q8H PRN oxycodone 5 mg PO BID PRN 10 days pantoprazole 40 mg PO DAILY@0630 sennosides (Senna Laxative) 17.2 mg (2 x 8.6 mg) PO BEDTIME topiramate 50 mg PO DAILY PFSH Medical History Cervical high risk HPV (human papillomavirus) test positive Fibromyalgia Elevated cholesterol Weight loss Karina's disease Non-toxic multinodular goiter Osteoarthritis of left hip Schatzki's ring Hiatal hernia Hx of migraines History of multinodular goiter IBS (irritable bowel syndrome) GERD (gastroesophageal reflux disease) Dysphagia Chronic pain syndrome Spondylosis, lumbar, with myelopathy Sacroiliitis Surgical History History of bilateral tubal ligation Hx of dilation and curettage Hx of arthroscopy of right knee History of esophagogastroduodenoscopy (EGD) Hx of colonoscopy History of cholecystectomy Family History Father Unknown family medical history Mother Arthritis Diverticulitis Gastritis Breast cancer Chronic asthma Adenomatous colon polyp HTN (hypertension) Maternal Grandmother Colon cancer Daughter Hypothyroid Daughter Traveling blood clot in leg Obesity Prediabetes Social History Household Members: Spouse Housing: House Are you a primary customer care agent to a significant other at home: No Do you presently have visiting nurse or other home services: No Alcohol intake: never Patient Tobacco Use Status: Former Tobacco user Tobacco use type: Cigarette Years Smoked: 18 service: No Current occupational status: employed 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 ? ?Informed consent was explained to the patient. All questions were explained and? answered.? The patient was taken inside the operating room where she was positioned prone on the operating table. Time-out was performed delineating correct site, side, the nature of the procedure, patient's allergy, . All operating room staff was participating in OR time-out procedure. ? ? The the upper back and posterior neck was prepped with ChloraPrep and draped with sterile towels.? C-arm was brought over the operating field and sq picture of C4, C5, C6 vertebra were delineated on the screen.? Point of interest were delineated as lateral masses of the vertebras as above with the waist of each lateral mass as the target of the final needle positioned.? The projection of the point of interest to the skin were injected with the small amount of local anesthetic lidocaine 2% mixed with ropivacaine 0.5% 1-1 approximately 1 cc.? After that 22 gauge 3.5 inch spinal needles were driven sequentially to the points of interest in tunnel vision fashion. After needles gently contacted the bone at the point of interests the needle was injected with small amount of the contrast.? The injection of the contrast did not demonstrate any intravascular or intrathecal spread of the contrast.? After that injection of the? ropivacaine 0.5%-1cc was performed at each needle location.??after that the needles were removed and Bandaids were applied. ? Upon completion of the injections? needles were removed and sterile Band-Aids were applied.? The patient tolerated procedure very well. Orders: Orders FL guidance in treatment room Today M47.812 - Spondylosis without myelopathy or radiculopathy, cervical region Coding Level of Care Code Procedure Only Diagnoses Cervical spondylosis M47.812
[2024-08-26 11:35] VITALS: BP 112/74; PULSE 55; RESP 16; O2SAT 100
--- OUTSIDE RECORDS SUMMARY | 2024-08-26 12:28 | XMS_ITS | Encounter Summary ---
Author Organization [employer] Address [address] [place] [address] Care Team Providers Care Robotic Weld Technician Name Role Phone Tierney Goncalves LOCAL SALES ASSOCIATE Primary Care Provider [phone] Encounter Details Date Type Department Care Team (Late st Contact Info) Description 08/05/2024 Orders Only [facility] [address] [place] [address] ProviderEvon MD Social History Tobacco Use Types [...] Description 09/24/2024 2:00 PM EDT Office Visit [facility] [address] [place] [address] [place] [facility] [address] [place] [address] documented as of this encounter Procedures Procedure Name Priority Date/Time Associated Diagnosis Comments COLPOSCOPY Routine 12/17/2023 10:24 AM EDT documented in this encounter Results * Colposcopy (12/17/2023 10:24 AM EDT) Historical Provider MD IN CLINIC/BEDSIDE ORDERAB LES Final Result documented in this encounter Visit Diagnoses Not on filedocumented in this encounter Additional Health Concerns Assessment Noted Time PHQ-9 Depression Total Score: 0 05/16/19 24 3:22 PM EST documented as of this encounter Care Teams Robotic Weld Technician Relationship Specialty Start Date End Date IvannaTierney [facility] [address] [place] [address] PCP - General Family Medicine 12/27/21 documented as of this encounter
--- OUTSIDE RECORDS SUMMARY | 2024-08-26 12:28 | XMS_ITS | Encounter Summary ---
Author Organization [employer] Address [address] [place] [address] Care Team Providers Care Mechanic'S Assistant Name Role Phone Tierney Goncalves LEAF BINNER Primary Care Provider [phone] Encounter Details Date Type Department Care Team (Late st Contact Info) Description 08/08/2023 Orders Only [facility] [address] [place] [address] ProviderEvon MD Social History Tobacco Use Types [...] is your housing situation today? I have dlae hernandez 02/15/[address] you [...] 2:00 PM EDT Office Visit [facility] [address] [place] [address] Tierney Goncalves FNP [address] [place] [address] documented as of this encounter Procedures Procedure [...] documented as of this encounter Care Teams Mechanic'S Assistant Relationship Specialty Start Date End Date Tierney Goncalves FNP [address] [place] [phone] PCP - General Family Medicine 12/27/21 documented as of this encounter
--- OUTSIDE RECORDS SUMMARY | 2024-08-26 12:28 | XMS_ITS | Clinical Summary ---
Author Organization [email or web address] Address [address] [place] [address] Care Team Providers Care Lift Builder Whole Name Role Phone Tierney Goncalves GRINDER SET UP OPERATOR INTERNAL Primary Care Provider [phone] Allergies No known active allergies Medications omeprazole (PriLOSEC) [address] capsule Take 1 capsule by mouth. Active Diclofenac Sodium 1 % gelIndications: Joint pain in both hands Apply topically to affected areas twice daily 150 g 1 3 Active capsaicin (Zostrix) 0.025 % creamIndication s:Joint pain in both hands APPLY TOPICALLY TWICE DAILY TO THE AFFECTED AREA 60 g 3 Active DULoxetine (Cymbalta) [address] [...] 180 capsule 3 5 05/26/19 26 Active lidocaine (Xylocaine) 5 % ointmentIndicat ions:Fibromyalg ia Apply topically Once per day. APPLY TOPICALLY TO THE AFFECTED AREA 1 -4 TIMES EVERY DAY IF NEEDED 60 g 1 5 Active Active Problems Problem Noted Date Diagnosed Date [...] Negative EMB 09/01/22 ? ? Followed by [facility] RADIATOR CLEANER Mixed hyperlipidemia 05/26/2022 Overview (05/26/2022): ?? 03/2022 ASCVD 2.8% ?? Diet controlled Healthcare maintenance 04/02/2022 Overview (08/15/2023): Mammo: 02/2023 bi-rads 2 Pap: 05/2021 though [facility] RADIATOR CLEANER, NIL HPV +'colpo PADMINI 1, repeat co-testing due 09/2023 C-scope: 2017, has upcoming appointment BMD: Routine age 67 HCV Screen: Neg 2016 HIV Screen: Neg 2015 Immunizations: declines COVID booster today. Otherwise UTD Screening Labs: A1c-4.8, 2020 Assessment & Plan (04/02/2022 1:22 PM EST): Mammo: 02/2022 bi-rads 2, repeat 02/2023 Pap: 05/2021 though [facility] RADIATOR CLEANER, NIL HPV +, pt does not now what follow up is scheduled with Dr. Sen Barbosa-scope: 2017 BMD: Routine age 67 HCV Screen: Neg 2015 HIV Screen: Neg 2015 Immunizations: Accepts flu, declines COVID booster today. Otherwise UTD Screening Labs: A1c-4.8, 2020 Lipids: Ordered today CMP: Ordered today Migraine without aura, not refractory 03/16/2022 Overview (05/26/2022): ?? Topiramate 50mg for prevention Osteoarthritis of right knee 04/25/2019 Dysphagia 10/03/2018 Overview (05/16/2023): Hx of persistent dysphagia and early satiety - Followed by [facility] GI with previously benign EGD w/ esophageal spasm, negative gastric emptying study, neg. H.pylori biopsy Osteoarthritis of facet joint of lumbar spine Overview (05/18/2022): - Hx of sacroilitis - Previously seen by [facility] ortho and pain mngmt; has received numerous steroid injections with minimal sx improvement. Has tried PT for various concerns without improvement. - Is not currently followed by ortho or pain mngmt ?? Non-toxic multinodular goiter 07/20/2017 Overview (05/18/2022): Benign multi-nodular goiter followed by [facility] endo. Per lats visit note 08/2021, patient to reconsider thyroidectomy if sx of dysphagia worsen; has follow up in 6 months - Per chart review pt was referred to [place] for possible thyroidectomy however pt does not have transportation. Insurance barriers limit more local access. -FNA of left mid pole nodule on 04/20/16 consistent with benign follicular nodule. Neutropenic disorder 03/16/2017 Overview (01/17/2024): Followed by [facility] heme/onc negative workup for underlying cause. Per visit note plan to monitor q. 6 months and consider biopsy if WBC count < 2 or development of B sx Diffuse spasm of esophagus 05/17/2016 Fibromyalgia 04/28/2016 Overview (01/02/2023): ?? Duloxetine 40mg daily ?? Amitriptyline 10mg at bedtime ?? Chronic back pain, shoulder pain ?? Hx of sacroilitis ?? Previously seen by [facility] ortho and pain mngmt; has received numerous [...] of cholecystectomy 05/23/2017 1 06/03/2021 Karina's thyroiditis 03/16/201707/2021 Trochanteric bursitis 12/08/20162021 Schatzki's ring of distal esophagus 04/21/2016 04/02/2022 Menopausal flushing 02/28/2016 04/02/20 Lumbar back pain 2016 04/02/2022 Neck pain 2016 04/02/2022 Encounters Date Type Department Care Team Description 08/06/2024 9:30 AM EDT Office Visit [facility] MEDICINE [address] [place] [address] Jannet Mensah NP Elevated liver enzymes (Primary Dx); Low serum potassium 08/06/2024 Travel 08/05/2024 Orders Only [facility] CHC MED & PEDS [address] [place], [place] [phone] ProviderEvon MD 08/05/2024 Telephone [facility] [address] [place] [address] Tierney Goncalves FNP ER Follow-up; Nurse Triage 08/04/2024 Orders Only GENERIC EXTERNAL DATA DEPARTMENT Provider, Generic External Data 07/18/2024 Orders Only [facility] External Provider, [facility] 07/09/2024 Refill [facility] [address] [place] [address] Tierney Goncalves FNP Fibromyalgia 06/13/2024 Orders Only [facility] External Provider, [facility] 06/05/2024 10:40 AM EST Office Visit [facility] WALK-IN CENTER [address], [place] [phone] Emeka Benjamin MD De Quervain's tenosynovitis, left (Primary Dx) 06/05/2024 Telephone [facility] [address] [place] [address] Tierney Goncalves FNP Nurse Triage from Last 3 Months Immunizations Name Administration [...] Sign Reading Time Taken Comments Blood Pressure 122/70 08/06/2024 9:14 AM EDT Pulse 52 08/06/2024 9:14 AM EDT Temperature 36.7 ??C (98 ??F) 08/06/2024 9:14 AM EDT Respiratory Rate 13 08/06/2024 9:14 AM EDT Oxygen Saturation 98% 08/06/2024 9:14 AM EDT Inhaled Oxygen Concentration - - Weight 58.3 kg (128 lb 9.6 oz) 08/06/2024 9:14 A M EDT Height 160 cm (5' 3 ) 08/06/2024 9:14 AM EDT Body Mass Index 22.78 08/06/2024 9:14 AM EDT Plan of Treatment Upcoming Encounters Date Type Department Care Team (Late st Contact Info) Description 09/24/2024 2:00 PM EDT Office Visit [facility] MEDICINE [address] [place] [address] Cylinder, [place], GRINDER SET UP OPERATOR INTERNAL [address] [place] [address] Health Maintenance Due Date Last Done Comments [...] 03/06/2023, 06/28, 07/11/2016 Colorectal Cancer Screening 11/06/2023 COVID-19 Vaccine ( season) 2023 02/21/2023, 09/06/2022, 09/15/2020, Additional history exists Depression Screening 05/16/2024 05/16/2023, 05/16/19 24 SDOH Screening 05/16/2024 05/16/2023 DTaP/Tdap/Td Vaccines (2 - Td or Tdap) 10/12/2024 10/12/2014 Cervical Cancer Screening 12/16/2024 HPV/Cotest 12/16/2024 11/05/2023, 08/28/2022 Pap Smear 12/16/2024 11/05/2023, 05/0 04/2022, 07/04/2021 Mammogram 03/17/2025 03/17/2024, 02/28, 03/16/2023, Additional history exists Tobacco Screening 08/06/2025 08/06/2024 Dental X-Ray: Full Mouth 01/05/2026 023, 07/09/2020, 08/07/2013 Zoster Vaccines Completed 07/26/2021, 05/20/2021 Colposcopy Discontinued 12/17/2023, 10/06/2022 Influenza Vaccine Completed 01/14/2024, , 03/31/2022, Additional history exists Hepatitis C Screening Discontinued 08/04/2024 HIB Vaccines Aged Out No longer eligi ble based on patient's age to complete this topic HIV Screening Discontinued HPV Vaccines Aged Out No longer eligi ble based on patient's age to complete this topic Hepatitis B Vaccines Discontinued IPV Vaccines Aged Out No longer [...] Procedure Name Priority Date/Time Associated Diagnosis Comments COMPREHENSIVE METABOLIC PANEL Routine 08/06/2024 10:13 AM EDT Elevated liver enzymes Low serum potassium LACTIC ACID Routine 08/04/2024 10:03 AM EDT BLOOD CULTURE (FIRST) Routine 08/04/2024 10:02 AM EDT BLOOD CULTURE (SECOND) Routine 10:02 AM EDT SARS COV2/INFLUENZA A/B AND RSV RNA QL NAAT Routine 08/04/2024 9:[address] ABDOMEN PELVIS W CONTRAST Routine 08/04/2024 9:04 AM EDT URINALYSIS, COMPLETE, WITH REFLEX TO CULTURE Routine 08/04/2024 8:24 AM EDT US ABDOMEN LIMITED Routine 08/04/2024 8: 08 AM EDT HEPATITIS PANEL, GENERAL Routine 08/04/2024 7:29 AM EDT ACETAMINOPHEN LEVEL Routine 08/04/2024 7 :29 AM EDT LIPASE Routine 08/04/2024 5:48 AM EDT COMPREHENSIVE METABOLIC PANEL Routine 08/04/2024 5:48 AM EDT CBC WITH AUTO DIFFERENTIAL Routine 08/04/2024 5:48 AM EDT XR WRIST 3+ VIEWS LEFT Routine 11:32 AM EDT XR WRIST 3+ VIEWS RIGHT Routine 07/21/2024 11:31 AM EDT XR SHOULDER 2+ VIEWS LEFT Routine 06/14/2024 5:38 AM EST BI MAMMOGRAM SCREENING TOMOSYNTHESIS BILATERAL Routine 03/17/2024 2:15 PM EST COLPOSCOPY Routine 12/17/2023 10:24 AM EDT HM PAP/HPV Routine 11/05/2023 HM COLONOSCOPY Routine 03/06/2023 8:12 AM EST PROPHYLAXIS - ADULT Routine 02/21/2023 2 :00 PM EDT Generalized gingival recession Missing teeth, acquired PANORAMIC RADIOGRAPHIC IMAGE Routine 01/04/2023 8:00 AM EDT PERIODIC ORAL EVALUATION - ESTABLISHED PATIENT Routine 01/04/2023 8:00 AM EDT BITEWINGS - 2 RADIOGRAPHIC IMAGES Routine 05/06/2015 12:00 AM EST from Last 3 Months or Most Recently Relevant to Health Maintenance Results * (ABNORMAL) Comprehensive Metabolic Panel (08/06/2024 10:13 AM EDT) Only the most recent of2 resultswithin the time period is included. Sodium 140 135 - 145 mmol/L [facility] Potassium 3.5 3.3 - 5.1 mmol/L [facility] Chloride 109(H) 96 - 108 mmol/L [facility] Carbon Dioxide 26 22 - 29 mmol/L [facility] Anion Gap 9(L) 12 - 20 [facility] Urea Nitrogen (BUN) 12 9 - 16 mg/dL [facility] Creatinine, Serum 0.75 0.5 - 1.4 mg/dL [facility] Estimated Glomerular Filt Rate >60 [facility] Comment:Chronic Kidney Disea se: Estimated GFR < 60 mL/min/1.30w7Qsuwym Kidney Disease: Estimated GFR < 15 mL/min/1.73m2 Glucose 84 60 - 115 mg/dL [facility] Calcium 9.0 8.4 - 10.2 mg/dL [facility] Bilirubin, Total 0.4 0.0 - 1.0 mg/dL [facility] Aspartate Amino Transferase 165(H) 5 - 31 U/L [facility] Alanine Aminotransferase 464(H) 0 - 31 U/L [facility] Total Protein 7.1 6.5 - 8.0 g/dL [facility] Albumin Level 4.0 3.5 - 5.0 g/dL [facility] Alkaline Phosphatase 225(H) 39 - 117 U/L [facility] Blood Venous blood specimen / Unknown 08/06/2024 10:13 AM EDT 08/06/2024 11:45 AM EDT us Jannet Mensah TOWBOAT OPERATOR LAB BLOOD ORDERABLES Final Resu lt [facility] [address] [place] [phone] * Lactic Acid (08/04/2024 10:03 AM EDT) Lactic Acid 0.9 0.5 - 2.0 mmol/L [facility] 08/04/2024 10:0 3 AM EDT 08/04/2024 10:07 AM EDT Generic External Data Provider LAB BLOOD ORDERAB LES Final Result Performing Organization Address [facility] Co de Phone Number [facility] [address] [place] [phone] * Blood Culture (First) (08/04/2024 10:02 AM EDT) Blood Venous blood specimen / Unknown 08/04/2024 10:02 AM EDT 08/04/2024 10:07 AM EDT Comment:Blood Narrative [facility] - 08/09/2024 12:07 PM EDT Blood Culture (First) No growth after 5 days. Specimen Source: Blood Generic External Data Provider LAB MICROBIOLOGY - GENERAL ORDERABLES Final Result Performing Organization Address [facility] de Phone Number [facility] [address] [place] [phone] * Blood Culture (Second) (08/04/2024 10:02 AM EDT) Blood Venous blood specimen / Unknown 08/04/2024 10:02 AM EDT 08/04/2024 10:07 AM EDT Comment:Blood Narrative [facility] - 08/09/2024 12:07 PM EDT Blood Culture (Second) No growth after 5 days. Specimen Source: Blood Generic External Data Provider LAB MICROBIOLOGY - GENERAL ORDERABLES Final Result Performing Organization Address [facility] Co de Phone Number [facility] [address] [place] [phone] * SARS-CoV-2 RNA, Influenza A/B, and RSV RNA, Ql NAAT (08/04/2024 9:22 AM EDT) Influenza A PCR NEGATIVE Negative [facility] Influenza B PCR NEGATIVE Negative [facility] Resp Syncy Virus RNA Qual PCR NEGATIVE Negative [facility] SARS COV2 PCR NEGATIVE Negative [facility] Comment:All test results mus t be correlated with clinical findings.Negative results do not preclude SARS-CoV2, influenza Avirus, influenza B virus and/or RSV infectionand should not be used as the sole basis for treatment orother patient management decisions. Negative results must becombined with clinical observations, patient history, andepidemiological information.This test has not been evaluated for monitoring treatment ofinfection.This test has been authorized by the FDA under an EmergencyUse Authorization (EUA) for use by authorized laboratories.Testing performed on the [employer] GeneXpert utilizingreal-time RT-PCR.All SARS CoV2 and positive influenza A/B results arereported to [facility]. 08/04/2024 9:22 AM EDT 08/04/2024 9:26 AM EDT us Generic External Data Provider LAB MICROBIOLOGY - GENERAL ORDERABLES Final Result Performing Organization Address City/State/[facility] Co de Phone Number [facility] [address] [place] [phone] * CT Abdomen Pelvis w/ Contrast (08/04/2024 9:04 AM EDT) Anatomical Region Laterality Modality Body, Pelvis, Abdomen Computed T omography 08/04/2024 9:04 AM EDT Narrative 08/04/2024 9:39 AM EDT ? [facility] ?[address] ?[place] [address] ? CT Scan Report ? Signed ? Patient: Flynn,Alba Y ?MR#: [id number] ? : 1960 ?Acct:[id number] ? Age/Sex: 64 / F ?ADM Date: 04//25 ? Loc: HO.ED ? Attending Dr: ? Ordering Physician: Angelika Skaggs DO ?? Date of Service: 08/04/24 ?? Procedure(s): CT abdomen pelvis w IV con ?? Accession Number(s): [id number] ? cc: Angelika Skaggs DO; IvannaTierney GRINDER SET UP OPERATOR INTERNAL ? Report Number: ?? [id number]: Total DLP = ??339.00 mGy-cm ?? EXAMINATION: ??CT ABDOMEN PELVIS WITH IV CONTRAST ? HISTORY: severe abdominal pain, diarrhea, fevers ? COMPARISON: Comparison is made with the prior examination dated ?? 03/24/2019. ? TECHNIQUE: CT scan of the abdomen and pelvis was performed following ?? administration of 85 mL Omnipaque 350 using standard departmental ?? protocol. ?? Coronal and sagittal reformatted images were generated and ?? reviewed. ??Oral contrast material was not administered at the request ?? of the referring physician. ? This CT exam was performed with one or more of the following dose ?? reduction techniques: automated exposure control, adjustment of the mA ?? and/or kV according to patient size, use of iterative reconstruction ?? technique. ? DLP: 339 mGy-cm ? FINDINGS: ? LOWER CHEST: The visualized lung bases are clear. There is no pleural ?? effusion. ? CARDIOVASCULATURE: The heart is normal in size. ??There is no ?? pericardial effusion. ? LIVER: ??The liver is normal in size and contour. ??There are tiny ?? subcentimeter hypodensities in the liver which likely represent cysts, ?? but are too small to accurately characterize. ??The hepatic and portal ?? veins are patent. ? GALLBLADDER / BILE DUCTS: ??The gallbladder is surgically absent. There ?? is mild dilatation of the common bile duct and intrahepatic biliary ?? radicles. Comparison with the prior study is difficult due to lack of ?? IV contrast on the prior study. ? SPLEEN: The spleen is normal in size. No focal splenic lesion is ?? identified. ? PANCREAS: The pancreas is unremarkable in appearance. ? ADRENAL GLANDS: Within normal limits. ? KIDNEYS/RETROPERITONEUM: No renal calculi are identified. There is no ?? hydronephrosis. ??No renal masses are identified. ? LYMPH NODES: ??No abdominal or pelvic lymphadenopathy. ? VASCULATURE: ??The abdominal aorta is normal in caliber. ? MESENTERY/PERITONEUM: No free fluid. No masses. ??There is no free ?? intraperitoneal gas. ? STOMACH: ??The stomach is collapsed, limiting evaluation. ? SMALL BOWEL: ?? The small bowel is normal in caliber. ? COLON: ??There is diverticulosis of the descending and sigmoid colon, ?? without evidence of diverticulitis. ? APPENDIX: ??The appendix is prominent measuring up to 6 mm in diameter. ?? No air is seen in the appendix. There may mild periappendiceal ?? inflammatory stranding. Findings are suggestive of acute appendicitis. ? URINARY BLADDER/PELVIC ORGANS: The urinary bladder is unremarkable. ? There are multiple uterine fibroids measuring up to 2.4 cm in size. ? BONES / SOFT TISSUES: ??No suspicious bony or soft tissue abnormalities. ? CT/CT abdomen pelvis w IV con ?? IMPRESSION: ?? 1. Findings suggestive of mild acute appendicitis as described. ? 2. Diverticulosis of the descending and sigmoid colon, without evidence ?? of diverticulitis. ? 3. Mild intra and extra hepatic biliary ductal dilatation which may ?? within normal limits for a patient status post cholecystectomy. ? Electronically signed by: ??Gasper Montez MD ??08/04/2024 09:35 AM EDT ?? RP ? Dictated By: ?Gasper Montez MD ? Signed By: ?<Electronically signed by Gasper Montez MD in OV> ?08/04/24 0935 ? DD/ 0904 ? TD/TT: 08/04/24 0920 ? Life Support Technician: ? Procedure Note Rico Nelson - 08/04/2024 [place] [id number] [place] [address] CT Scan Report Signed Patient: Adela Flynn YMR#: [id number] : 2Acct:[id number] Age/Sex: 64 / FADM Date: 08/04/24 Loc: HO.ED Attending Dr: Ordering Physician: Angelika Skaggs DO Date of Service: 08/04/24 Procedure(s): CT abdomen pelvis w IV con Accession Number(s): [id number] cc: Angelika Skaggs DO; [facility] Report Number: [id number]: Total DLP = 339.00 mGy-cm EXAMINATION: CT ABDOMEN PELVIS WITH IV CONTRAST HISTORY: severe abdominal pain, diarrhea, fevers COMPARISON: Comparison is made with the prior examination dated 03/24/2019. TECHNIQUE: CT scan of the abdomen and pelvis was performed following administration of 85 mL Omnipaque 350 using standard departmental protocol. Coronal and sagittal reformatted images were generated and reviewed. Oral contrast material was not administered at the request of the referring physician. This CT exam was performed with one or more of the following dose reduction techniques: automated exposure control, adjustment of the mA and/or kV according to patient size, use of iterative reconstruction technique. DLP: 339 mGy-cm FINDINGS: LOWER CHEST: The visualized lung bases are clear. There is no pleural effusion. CARDIOVASCULATURE: The heart is normal in size. There is no pericardial effusion. LIVER: The liver is normal in size and contour. There are tiny subcentimeter hypodensities in the liver which likely represent cysts, but are too small to accurately characterize. The hepatic and portal veins are patent. GALLBLADDER / BILE DUCTS: The gallbladder is surgically absent. There is mild dilatation of the common bile duct and intrahepatic biliary radicles. Comparison with the prior study is difficult due to lack of IV contrast on the prior study. SPLEEN: The spleen is normal in size. No focal splenic lesion is identified. PANCREAS: The pancreas is unremarkable in appearance. ADRENAL GLANDS: Within normal limits. KIDNEYS/RETROPERITONEUM: No renal calculi are identified. There is no hydronephrosis. No renal masses are identified. LYMPH NODES: No abdominal or pelvic lymphadenopathy. VASCULATURE: The abdominal aorta is normal in caliber. MESENTERY/PERITONEUM: No free fluid. No masses. There is no free intraperitoneal gas. STOMACH: The stomach is collapsed, limiting evaluation. SMALL BOWEL: The small bowel is normal in caliber. COLON: There is diverticulosis of the descending and sigmoid colon, without evidence of diverticulitis. APPENDIX: The appendix is prominent measuring up to 6 mm in diameter. No air is seen in the appendix. There may mild periappendiceal inflammatory stranding. Findings are suggestive of acute appendicitis. URINARY BLADDER/PELVIC ORGANS: The urinary bladder is unremarkable. There are multiple uterine fibroids measuring up to 2.4 cm in size. BONES / SOFT TISSUES: No suspicious bony or soft tissue abnormalities. CT/CT abdomen pelvis w IV con IMPRESSION: 1. Findings suggestive of mild acute appendicitis as described. 2. Diverticulosis of the descending and sigmoid colon, without evidence of diverticulitis. 3. Mild intra and extra hepatic biliary ductal dilatation which may within normal limits for a patient status post cholecystectomy. Electronically signed by: Gasper Montez MD 08/04/2024 09:35 AM EDT RP Dictated By: Gasper Montez MD Signed By: <Electronically signed by Gasper Montez MD in OV> 08/04/24 0935 DD/ 0904 TD/TT: 08/04/24 0920 Life Support Technician: [facility] External Provider IMG CT PROCEDURES Final Result * (ABNORMAL) Urinalysis, Complete, with Reflex to Culture (08/04/2024 8:24 AM EDT) Color Urine Yellow [facility] Appearance Urine Clear [facility] PH 6.0 5.0 - 9.0 [facility] Glucose Urine UA Negative Negative mg/dL [facility] Urine Blood Moderate (2+)(A) Negative [facility] Specific [place] - Urine 1.015 1.005 - 1.025 [facility] Urine Protein Negative Neg-Trace mg/dL [facility] Urine Ketones 15 Negative mg/dL [facility] Nitrite Urine Negative Negative [facility] Leukocyte Esterase Urine Negative Negative [facility] RBC Urine 11-20(A) 0 - 2 /HPF [facility] Urine WBC 0-5 0 - 5 /HPF [facility] Urine Squamous Epithelial Cell 0-2 0 - 2 /HPF [facility] Urine Bacteria None Seen None Seen [facility] Hyaline Casts, Urine 0-2 0 - 2 /LPF [facility] 08/04/2024 8:24 AM EDT 08/04/2024 8:27 AM EDT Narrative [facility] - 08/04/2024 8:37 AM EDT [id number], [employer] us Generic External Data Provider LAB URINE ORDERAB LES Final Result Performing Organization Address City/State/[facility] Co de Phone Number [facility] [address] [place] [phone] * US Abdomen Limited (08/04/2024 8:08 AM EDT) Anatomical Region Laterality Modality Abdomen Ultrasound 08/04/2024 8:08 AM EDT Narrative 08/04/2024 9:05 AM EDT ? [facility] ?[address] ?[place] [address] ? Ultrasound Report ? Signed ? Patient: Adela Flynn ?MR#: [id number] ? : 1960 ?Acct:[id number] ? Age/Sex: 64 / F ?ADM Date: 08/04/24 ? Loc: HO.ED ? Attending Dr: ? Ordering Physician: Angelika Skaggs DO ?? Date of Service: 08/04/24 ?? Procedure(s): US abdomen limited ?? Accession Number(s): [id number] ? cc: Angelika Skaggs DO; Tierney Goncalves GRINDER SET UP OPERATOR INTERNAL ? EXAMINATION: ??US ABDOMEN LIMITED ? HISTORY: abnormal LFTs, diarrhea ? TECHNIQUE: Real-time grayscale ultrasound imaging of the right upper ?? quadrant was performed and images were reviewed. ? COMPARISON: Comparison is made with the prior examination dated ?? 12/15/2022. ? FINDINGS: ?? Liver: The liver is normal in size. The liver demonstrates normal ?? homogeneous echotexture. ??No focal mass or intrahepatic biliary ductal ?? dilatation is identified. ??There is normal hepatopedal flow in the ?? portal vein. ? Gallbladder and biliary tree: The gallbladder is surgically absent. ? The common bile duct measures 10 mm diameter, without change. ? Right Kidney: ??The right kidney measures 9.7 cm in length. ??The right ?? kidney demonstrates increased echotexture which can be seen in the ?? setting of chronic medical renal disease or pyelonephritis. There is no ?? mass or calculi. There is slight fullness of the renal pelvis without ?? hydronephrosis. ? Pancreas: The pancreatic head, neck, and body are unremarkable. The ?? pancreatic tail is obscured by bowel gas. ? Abdominal aorta and inferior vena cava: The visualized portions of the ?? abdominal aorta and inferior vena cava are normal in caliber. ? There is no free fluid in the right upper quadrant. ? US/US abdomen limited ?? IMPRESSION: ? 1. The liver is unremarkable in appearance. ? 2. Increased renal echotexture which can be seen in the setting of ?? chronic medical renal disease or pyelonephritis. Clinical correlation ?? is recommended. ? Electronically signed by: ??Gasper Montez MD ??08/04/2024 09:02 AM EDT ? Dictated By: ?Gasper Montez MD ? Signed By: ?<Electronically signed by Gasper Montez MD in OV> ?08/04/24 0902 ? DD/ 0808 ? TD/TT: 08/04/24 0815 ? Life Support Technician: ? Procedure Note Rico Nelson - 08/04/[address] [address] Ultrasound Report Signed Patient: Adela Flynn YMR#: [id number] : 1960cct:[id number] Age/Sex: 64 / FADM Date: 08/04/24 Loc: HO.ED Attending Dr: Ordering Physician: Angelika Skaggs DO Date of Service: 08/04/24 Procedure(s): US abdomen limited Accession Number(s): [id number] cc: Angelika Skaggs DO; [facility] EXAMINATION: US ABDOMEN LIMITED HISTORY: abnormal LFTs, diarrhea TECHNIQUE: Real-time grayscale ultrasound imaging of the right upper quadrant was performed and images were reviewed. COMPARISON: Comparison is made with the prior examination dated 12/15/2022. FINDINGS: Liver: The liver is normal in size. The liver demonstrates normal homogeneous echotexture. No focal mass or intrahepatic biliary ductal dilatation is identified. There is normal hepatopedal flow in the portal vein. Gallbladder and biliary tree: The gallbladder is surgically absent. The common bile duct measures 10 mm diameter, without change. Right Kidney: The right kidney measures 9.7 cm in length. The right kidney demonstrates increased echotexture which can be seen in the setting of chronic medical renal disease or pyelonephritis. There is no mass or calculi. There is slight fullness of the renal pelvis without hydronephrosis. Pancreas: The pancreatic head, neck, and body are unremarkable. The pancreatic tail is obscured by bowel gas. Abdominal aorta and inferior vena cava: The visualized portions of the abdominal aorta and inferior vena cava are normal in caliber. There is no free fluid in the right upper quadrant. US/US abdomen limited IMPRESSION: 1. The liver is unremarkable in appearance. 2. Increased renal echotexture which can be seen in the setting of chronic medical renal disease or pyelonephritis. Clinical correlation is recommended. Electronically signed by: Gasper Montez MD 08/04/2024 09:02 AM EDT Dictated By: Gasper Montez MD Signed By: <Electronically signed by Gasper Montez MD in OV> 08/04/24 0902 DD/ 0808 TD/TT: 08/04/24 0815 Life Support Technician: [facility] External Provider IMG US PROCEDURES Final Result * Hepatitis Panel, General (08/04/2024 7:29 AM EDT) Hepatitis A IgM Nonreactive Nonreactive [facility] Comment:IgM antibodies to SERRANO V not detected; does not exclude earlyacute or recovered HAV infection. ~Hepatitis B Surface Antibody REACTIVE Nonreactive [facility] Comment:REACTIVE: > 11.99 mI U/mL Hepatitis B Core Antibody Nonreactive Nonreactive [facility] Hepatitis C Antibody Nonreactive Nonreactive [facility] Comment:Antibodies to HCV no t detected; does not exclude early acuteHCV infection. Hepatitis B Surface Ag Negative Negative [facility] 08/04/2024 7:29 AM EDT 08/04/2024 7:34 AM EDT Generic External Data Provider LAB BLOOD ORDERAB LES Final Result Performing Organization Address City/[facility] Co de Phone Number [facility] [address] [place] [address] [phone] * Acetaminophen level (08/04/2024 7:29 AM EDT) [facility] Acetaminophen LAB <3 <30 mcg/mL [facility] 08/04/2024 7:29 AM EDT 08/04/2024 7:34 AM EDT Generic External Data Provider LAB BLOOD ORDERAB LES Final Result Performing Organization Address [facility] de Phone Number [facility] [address] [place] [address] [phone] * (ABNORMAL) CBC auto differential (08/04/2024 5:48 AM EDT) [facility] White Blood Count 3.8(L) 4.8 - 10.8 X10*3/uL [facility] Red Blood Count 4.08(L) 4.20 - 5.50 X10*6/uL [facility] Hemoglobin 12.3 12.0 - 16.0 g/dl [facility] Hematocrit 36.6(L) 37.0 - 47.0 % [facility] Mean Corpuscular Volume 89.7 80.0 - 98.0 fL [facility] Mean Corpuscular Hemoglobin 30.1 27.0 - 33.0 pg [facility] Mean Corpuscular HGB Conc 33.6 31.0 - 35.0 g/dl [facility] Red Cell Distribution Width 12.5 11.0 - 16.0 % [facility] Platelet Count 232 160 - 400 X10*3/uL [facility] Mean Platelet Volume 9.4 9.4 - 12.3 fL [facility] Neutrophils Percent Auto 89.6(H) 45 - 73 % [facility] Imm Gran Pct Auto 0.3 0.0 - 0.4 % [facility] Lymphocytes Percent Auto 4.0(L) 20 - 40 % [facility] Monocytes Percent Auto 4.0 2 - 11 % [facility] Eosinophils Percent Auto 1.8 0 - 4 % [facility] Basophils Percent Auto 0.3 0 - 2 % [facility] NRBC Pct Auto 0.0 0.0 - 0.2 /100WBC [facility] Neutrophils Absolute Auto 3.4 2.0 - 8.3 x10*3/uL [facility] Imm Gran Abs Auto 0.01 0.00 - 0.03 X10*3/uL [facility] Lymphocytes Absolute Auto 0.2(L) 1.2 - 4.9 X10*3/uL [facility] Monocytes Absolute Auto 0.2 0.1 - 1.2 X10*3/uL [facility] Eosinophils Absolute Auto 0.1 0.0 - 0.4 X10*3/uL [facility] Basophils Absolute Auto 0.0 0.0 - 0.2 X10*3/uL [facility] NRBC Abs Auto 0.000 0.0 - 0.012 X10*3/uL [facility] 08/04/2024 5:48 AM EDT 08/04/2024 5:51 AM EDT us Generic External Data Provider LAB BLOOD ORDERAB LES Final Result [facility] [address] [place] [address] [phone] * Lipase (08/04/2024 5:48 AM EDT) Lipase 9 8 - 78 U/L [facility] 08/04/2024 5:48 AM EDT 08/04/2024 5:51 AM EDT us Generic External Data Provider LAB BLOOD ORDERAB LES Final Result [facility] [address] [place] [address] [phone] * XR Wrist 3+ Views Left (07/21/2024 11:32 AM EDT) Anatomical Region Laterality Modality Upper Extremities, Wrist Left Radiogr aphic Imaging 07/21/2024 11:3 2 AM EDT Narrative 07/21/2024 11:34 AM EDT ? [facility] ? [address] ?[place] [address] ?XRay Report ? Signed ? Patient: Flynn,Alba Y ?MR#: [id number] ? : 1960 ?Acct:[id number] ? Age/Sex: 64 / F ?ADM Date: 07/18/24 ? Loc: HO.HOSX ? Attending Dr: Carroll DAVALOS ? Ordering Physician: Carroll Bowser ?? Date of Service: 07/18/24 ?? Procedure(s): XR wrist LT min 3V ?? Accession Number(s): [id number] ? cc: Carroll Bowser; Tierney Goncalves ? CLINICAL HISTORY: M25.532 - Pain in [...] DD/ 1132 ? TD/TT: 07/21/24 1132 ? Life Support Technician: ? Procedure Note Omar, Image - 07/21/2024 [facility] [address] [place] [address] XRay Report Signed Patient: Adela Flynn YMR#: [id number] : 2Acct:[id number] Age/Sex: 64 / FADM Date: 07/18/24 Loc: HO.HOSX Attending Dr: Carroll DAVALOS Ordering Physician: Carroll Bowser Date of Service: 07/18/24 Procedure(s): XR wrist LT min 3V Accession Number(s): [id number] cc: Carroll Bowser; [facility] CLINICAL HISTORY: M25.532 - Pain in left [...] 07/21/24 1133 DD/ 1132 TD/TT: 07/21/24 1132 Life Support Technician: [facility] External Provider IMG XR PROCEDURES Final Result * XR Wrist 3+ Views Right (07/21/2024 11:31 AM EDT) Anatomical Region Laterality Modality Upper Extremities, Wrist Right Radiogr aphic Imaging 07/21/2024 11:3 1 AM EDT Narrative 07/21/2024 11:32 AM EDT ? [facility] ? [address] ?[place] [address] ?XRay Report ? Signed ? Patient: Flynn,Alba Y ?MR#: [id number] ? : 1960 ?Acct:[id number] ? Age/Sex: 64 / F ?ADM Date: 03/21/25 ? Loc: HO.HOSX ? Attending Dr: Carroll DAVALOS ? Ordering Physician: Carroll Bowser ?? Date of Service: 07/18/24 ?? Procedure(s): XR wrist RT min 3V ?? Accession Number(s): [id number] ? cc: Carroll Bowser; Tierney Goncalves GRINDER SET UP OPERATOR INTERNAL ? CLINICAL HISTORY: M25.531 - Pain in [...] DD/ 1131 ? TD/TT: 07/21/24 1131 ? Life Support Technician: ? Procedure Note Omar, Image - 07/21/2024 [facility] [address] [place] [address] [address] [place] [address] XRay Report Signed Patient: Adela Flynn YMR#: [id number] : 2Acct:[id number] Age/Sex: 64 / FADM Date: 07/18/24 Loc: HO.HOSX Attending Dr: Carroll DAVALOS Ordering Physician: Carroll Bowser Date of Service: 07/18/24 Procedure(s): XR wrist RT min 3V Accession Number(s): [id number] cc: Carroll Bowser; [facility] CLINICAL HISTORY: M25.531 - Pain in right [...] 07/21/24 1131 DD/ 1131 TD/TT: 07/21/24 1131 Life Support Technician: [facility] External Provider IMG XR PROCEDURES Final Result * XR Shoulder 2+ Views Left (06/14/2024 5:38 AM EST) Anatomical Region Laterality Modality Upper Extremities, Shoulder Left Radi ographic Imaging 06/14/2024 5:38 AM EST Narrative 06/14/2024 5:39 AM EST ? [facility] ?[address] ?[place] [address] ?XRay Report ? Signed ? Patient: Flynn,Alba Y ?MR#: [id number] ? : 1960 ?Acct:[id number] ? Age/Sex: 64 / F ?ADM Date: 06/13/24 ? Loc: HO.XRAY ? Attending Dr: Kanika SOL ? Ordering Physician: Kanika Liz ?? Date of Service: 06/13/24 ?? Procedure(s): XR shoulder LT min 2V ?? Accession Number(s): [id number] ? cc: Kanika Liz GRINDER SET UP OPERATOR INTERNAL; Tierney Goncalves GRINDER SET UP OPERATOR INTERNAL ? CLINICAL HISTORY: M25.512 - Pain in left shoulder ? 4 view left shoulder ? Comparison: CR/MS/SR - XR SHOULDER LT MIN 2V - 11/01/21 15:06 EDT ? Findings: ?? No fractures or dislocations. ?? Gdrh-gb-uhhqnzfs osteoarthritic changes of the AC joint. ?? No erosions. No radiopaque foreign body. ? IMPRESSION: ?? 1. No acute findings ? This document has been electronically signed by: Diego Fan MD on ?? 06/14/2024 05:38:17 ? Dictated By: ?Diego Fan MD ? Signed By: ?<Electronically signed by Diego Fan MD in OV> ?06/14/24 0538 ? DD/ 05 ? TD/TT: 06/14/24 05 ? Life Support Technician: ? Procedure Note Rico Nelson - 06/14/[address] [address] XRay Report Signed Patient: Adela Flynn YMR#: [id number] : 2Acct:[id number] Age/Sex: 64 / FADM Date: 06/13/24 Loc: HO.XRAY Attending Dr: Kanika Liz GRINDER SET UP OPERATOR INTERNAL Ordering Physician: Kanika Liz Date of Service: 06/13/24 Procedure(s): XR shoulder LT min 2V Accession Number(s): [id number] cc: Kanika LizP; [facility] GRINDER SET UP OPERATOR INTERNAL CLINICAL HISTORY: M25.512 - Pain in left shoulder 4 view left shoulder Comparison: CR/MS/SR - XR SHOULDER LT MIN 2V - 11/01/21 15:06 EDT Findings: No fractures or dislocations. Nrdp-ys-ghbxozcl osteoarthritic changes of the AC joint. No erosions. No radiopaque foreign body. IMPRESSION: 1. No acute findings This document has been electronically signed by: Diego Fan MD on 06/14/2024 05:38:17 Dictated By: Diego Fan MD Signed By: <Electronically signed by Diego Fan MD in OV> 06/14/2438 DD/ 7 TD/TT: 06/14/24537 Life Support Technician: [facility] External Provider IMG XR PROCEDURES Edited Result - Final * BI Mammogram Screening Tomosynthesis Bilateral (03/17/2024 2:15 PM EST) Anatomical Region Laterality Modality Breast Bilateral Mammography 03/17/2024 2:15 PM EST Narrative 03/25/2024 3:23 PM EST ? [facility] ? [address] ?[place] [address] ? Mammography Report ? Signed ? Patient: Flynn,Alba Y ?MR#: [id number] ? : 1960 ?Acct:[id number] ? Age/Sex: 64 / F ?ADM Date: 11/18/24 ? Loc: HO.MAMMO ? Attending Dr: Tierney Goncalves GRINDER SET UP OPERATOR INTERNAL ? Ordering Physician: Tierney Goncalves GRINDER SET UP OPERATOR INTERNAL ?Results: 2Beni ?? gn Findings ? Date of Service: 03/17/24 ?Follow Up: 1 Year From Orig ?? inal Mammogram ? Procedure(s): MM tomosynthesis screening BI ?? Accession Number(s): [id number] ? cc: Tierney Goncalves GRINDER SET UP OPERATOR INTERNAL ? EXAMINATION: ?? MM SCREENING DIGITAL BREAST [...] DD/ 1415 ? TD/TT: 03/17/24 1430 ? Life Support Technician: ? Procedure Note Donenidter, Image - 03/25/2024 [place] [facility] [address] [place], [place] [address] Mammography Report Signed Patient: Adela Flynn YMR#: [id number] : 2Acct:[id number] Age/Sex: 64 / FADM Date: 03/17/24 Loc: HO.MAMMO Attending Dr: Tierney Goncalves GRINDER SET UP OPERATOR INTERNAL Ordering Physician: Tierney Goncalves FNPResults: 2Beni gn Findings Date of Service: 03/17/24Follow Up: 1 Year From Orig inal Mammogram Procedure(s): MM tomosynthesis screening BI Accession Number(s): [id number] cc: Tierney Goncalves GRINDER SET UP OPERATOR INTERNAL EXAMINATION: MM SCREENING DIGITAL BREAST TOMOSYNTHESIS, BILATERAL [...] 03/25/24 1520 DD/ 1415 TD/TT: 03/17/24 1430 Life Support Technician: [facility] GRINDER SET UP OPERATOR INTERNAL IMG BI PROCEDURES Final Resul t * Colposcopy (12/17/2023 10:24 AM EDT) Historical Provider IN CLINIC/BEDSIDE ORDERAB LES Final Result * (ABNORMAL) PAP/HPV (11/05/2023) Pap Smear 1. NILM 1. NILM HPV Detected(A ) Undetected, Indeterminate , Quantitative, Not Detected Historical Provider HEALTH MAINTENANCE Final Result * Colonoscopy (03/06/2023 8:12 AM EST) Historical Provider HEALTH MAINTENANCE Final Result from Last 3 Months or Most Recently Relevant to Health Maintenance Insurance [facility] , [address] [place] [address] DENTAL - HSN PARTIAL (MEDICAID) Care Teams Lift Builder Whole Relationship Specialty Start Date End Date Tierney Goncalves FNP [address] [place] [id number] PCP - General Family Medicine 12/27/21
--- OUTSIDE RECORDS SUMMARY | 2024-08-26 12:28 | XMS_ITS | Encounter Summary ---
Author Organization [employer] Address [address] [place] [address] Care Team Providers Care Director Of Retail Marketing Name Role Phone Tierney Goncalves SCRAP YARD WORKER Primary Care Provider [phone] Encounter Details Date Type Department Care Team (Late st Contact Info) Description 11/13/2023 Orders Only [facility] [address] [place] [address] ProviderEvon MD Social History Tobacco Use Types [...] Description 09/24/2024 2:00 PM EDT Office Visit [facility] [address] [place] [address] Tierney Goncalves FNP [address] [place] [address] documented as of this encounter Procedures Procedure [...] documented as of this encounter Care Teams Director Of Retail Marketing Relationship Specialty Start Date End Date Tierney Goncalves FNP [address] [place] [address] PCP - General Family Medicine 12/27/21 documented as of this encounter
--- OUTSIDE RECORDS SUMMARY | 2024-08-26 12:28 | XMS_ITS | Encounter Summary ---
Author Organization [employer] Address [address] [place] [address] Care Team Providers Care Cranberry Farm Supervisor Name Role Phone [facility] Primary Care Provider [phone] Reason for Visit * Reason Comments Med Refill Encounter Details Date Type Department Care Team ([facility] st Contact Info) Description 03/13/[address] [facility] [address] [place] [address] [facility] [address] [place] [address] Social History Tobacco Use Types Packs/Day Years [...] Description 09/24/2024 2:00 PM EDT Office Visit [facility] [address] [place] [address] Tierney Goncalves FNP [address] [place] [address] documented as of this encounter Visit Diagnoses Not on filedocumented in this encounter Additional Health Concerns Assessment Noted Time PHQ-9 Depression Total Score: 0 12/13/19 23 2:06 PM EDT documented as of this encounter Care Teams Cranberry Farm Supervisor Relationship Specialty Start Date End Date Tierney Goncalves FNP [address] [place] [address] PCP - General Family Medicine 12/27/21 documented as of this encounter
--- OUTSIDE RECORDS SUMMARY | 2024-08-26 12:28 | XMS_ITS | Encounter Summary ---
Author Organization [employer] Address [address] [place] [address] [address] [place] [address] Care Team Providers Care Department Secretary Name Role Phone [facility] Primary Care Provider [phone] Reason for Visit * Reason Onset Date Comments ER Follow-up 08/05/2024 Nurse Triage 08/05/2024 Encounter Details Date Type Department Care Team (Late st Contact Info) Description 08/05/2024 Telephone [facility] MEDICINE [address] [place] [address] [facility] [address] [place], [place] [phone] ER Follow-up; Nurse Triage Social History Tobacco Use Types [...] encounter Miscellaneous Notes * Telephone Encounter - Monica Downey RN - 08/05/2024 10:11 AM EDT Date: 08/04/24 Hospital: [facility] Seen for: elevated liver function Symptomatic Yes, can't really eat due to feeling nauseous Pt. States was told needs liver function testing within 48 hours. Called pt. She states she started feeling sick to her stomach x 2 days ago. Pt. Had vomiting ,diarrhea, and chills. Pt went to [facility] ED on 08/04/24. Provider in ED stated that pt. Liver functions were elevated, Hypokalemia, and also had some inflammation in appendix. Pt had a CT scan done which did show some swelling of the Appendix and DX. Acute Appendicitis. Pt. Does not want to be seen today and is requesting appt. For tomorrow 08/06/24. I advised pt. That if stomach pain comes back, worsens to call 911 or go directly to ED. I see labs in pt. Chart but I do not see [facility] ED note in chart. Will send request for [facility] ED report from 08/04/24 to be put in pt. Chart for pt. Fu appt. On 08/06/24 at 930am with joya Mensah NP. Protocol Used: Abdominal Pain - Female (Adult) Protocol-Based Disposition: See in Office or Video Visit Today- Pt. Declines appt today. Strongly suggest to pt. If she has any increased pain in lower ri9ght quad of stomach to go back to ED. Otherwise appt. Made for pt. For 08/06/24 at 930am with Harika Mensah SPINNING AND WINDING SUPERVISOR for [facility] ED FU and discussion to repeat labs and possible referrals. Video visit offer not recorded Positive Triage Question: * Moderate pain (e.g., interferes with normal activities that comes and goes (cramps) lasts > 24hours (Exception: Pain with Vomiting or Diarrhea - see that Protocol.) * All higher-acuity triage questions were negative Care Advice Discussed: * Rest * Drink Clear Fluids * Diet * Pass a Stool * Avoid Aspirin and NSAIDs * Expected Course - Abdomen Pain * Telephone Encounter - Milagro Siegel - 08/05/2024 10:08 AM EDT Patient calling to report ED visit on : Date: 08/04/24 Hospital: [facility] Seen for: elevated liver function Symptomatic Yes, can't really eat due to feeling nauseous *if yes message should go to Triage Patient advised will forward to team nurse for follow up Pt states was inform will need to do liver testing within 48HR documented in this encounter Plan of Treatment Upcoming Encounters Date Type Department Care Team (Late st Contact Info) Description 09/24/2024 2:00 PM EDT Office Visit [facility] MEDICINE [address] [place] [address] Tierney Goncalves FNP [address] [place] [address] documented as of this encounter Visit Diagnoses Not on filedocumented in this encounter Additional Health Concerns Assessment Noted Time PHQ-9 Depression Total Score: 0 05/16/19 24 3:22 PM EST documented as of this encounter Care Teams Department Secretary Relationship Specialty Start Date End Date Tierney Goncalves FNP [address] [place] [address] PCP - General Family Medicine 12/27/21 documented as of this encounter
--- OUTSIDE RECORDS SUMMARY | 2024-08-26 12:28 | XMS_ITS | Encounter Summary ---
Author Organization [email or web address] Address [address] [place] [address] Care Team Providers Care Public Relations Associate Name Role Phone [facility] Primary Care Provider [phone] Reason for Visit * Reason Comments Med Refill Encounter Details Date Type Department Care Team ([facility] Contact Info) Description 07/21/2022 Refill [facility]INE [address] [place] [address] [facility] [address] [place] [address] Joint pain in both hands Social History [...] Upcoming Encounters Date Type Department Care Team ([facility] Contact Info) Description 09/24/2024 2:00 PM EDT Office Visit [facility]INE [address] [place] [address] Tierney Goncalves FNP [address] [place] [address] documented as of this encounter Visit Diagnoses Diagnosis Joint pain in both hands documented in this encounter Additional Health Concerns Assessment Noted Time PHQ-9 Depression Total Score: 0 05/18/19 23 2:28 PM EST documented as of this encounter Care Teams Public Relations Associate Relationship Specialty Start Date End Date Tierney Goncalves FNP [address] [place] [address] PCP - General Family Medicine 12/27/21 documented as of this encounter
--- OUTSIDE RECORDS SUMMARY | 2024-08-26 12:28 | XMS_ITS | Encounter Summary ---
Author Organization [employer] Address [address] [facility] [address] [facility] [place] [address] Care Team Providers Care Director Of Content And Programming Name Role Phone [facility] Primary Care Provider [phone] Reason for Visit * Reason Comments Med Refill Encounter Details Date Type Department Care Team ([facility] st Contact Info) Description 08/19/2023 Refill [facility] MEDICINE [address] [place] [address] [facility] [address] [place] [address] Fibromyalgia Social History Tobacco Use Types Packs/Day [...] 09/24/2024 2:00 PM EDT Office Visit [facility] [address] [place] [address] Tierney Goncalves FNP [address] [place] [address] documented as of this encounter Visit Diagnoses Diagnosis Fibromyalgia Unspecified myalgia and myositis documented in this encounter Additional Health Concerns Assessment Noted Time PHQ-9 Depression Total Score: 0 05/16/19 24 3:22 PM EST documented as of this encounter Care Teams Director Of Content And Programming Relationship Specialty Start Date End Date Tierney Goncalves FNP [address] [place] [address] PCP - General Family Medicine 12/27/21 documented as of this encounter
--- OUTSIDE RECORDS SUMMARY | 2024-08-26 12:28 | XMS_ITS | Encounter Summary ---
Author Organization [employer] Address [address] [place] [address] [facility] [place] [address] Care Team Providers Care Low Pressure Firer Name Role Phone Tierney Goncalves SVP BUSINESS DEVELOPMENT Primary Care Provider Reason for Visit * Reason Onset Date Comments case clarification 07/31/2023 Encounter Details Date Type Department Care Team ([facility] st Contact Info) Description 07/31/2023 Telephone [facility] ADULT DENTAL [address] [place] [address] Camron Rios DDS [address] [place], [place] [phone] case clarification Social History Tobacco Use Types [...] it a metal clasp or clear clasp? [facility] contact lab for clarification DR documented in this encounter Plan of Treatment Upcoming Encounters Date Type Department Care Team (Late st Contact Info) Description 09/24/2024 2:00 PM EDT Office Visit [facility] MEDICINE [address] [place] [address] Tierney Goncalves [facility] 230 [place] [address] documented as of this encounter Visit Diagnoses Not on filedocumented in this encounter Additional Health Concerns Assessment Noted Time PHQ-9 Depression Total Score: 0 05/16/19 24 3:22 PM EST documented as of this encounter Care Teams Low Pressure Firer Relationship Specialty Start Date End Date Tierney Goncalves FNP 230 [place] [address] PCP - General Family Medicine 12/27/21 documented as of this encounter
--- OUTSIDE RECORDS SUMMARY | 2024-08-26 12:28 | XMS_ITS | Encounter Summary ---
Author Organization [employer] Address [address] [place] [address] Care Team Providers Care General Office Associate Name Role Phone [facility] Primary Care Provider [phone] Encounter Details Date Type Department Care Team ([facility] Contact Info) Description 05/16/2022 Telephone [facility] MEDICINE [address] [place] [address] [place] [facility] 230 [place] [address] Social History Tobacco Use Types Packs/Day Years [...] Upcoming Encounters Date Type Department Care Team ([facility] Contact Info) Description 09/24/2024 2:00 PM EDT Office Visit [facility] MED[facility] [address] [place] [phone] Tierney Goncalves FNP 230 [place] [address] documented as of this encounter Visit Diagnoses Not on filedocumented in this encounter Care Teams General Office Associate Relationship Specialty Start Date End Date Tierney Goncalves FNP 230 [place] [address] PCP - General Family Medicine 12/27/21 documented as of this encounter
--- OUTSIDE RECORDS SUMMARY | 2024-08-26 12:28 | XMS_ITS | Encounter Summary ---
Author Organization [employer] Address [address] 7t [place] [address] Care Team Providers Care Supervisor Hand Workers Name Role Phone Tierney Goncalves POULTRY HANGER Primary Care Provider [phone] Encounter Details Date Type Department Care Team ([facility] st Contact Info) Description 09/07/2023 Telephone [facility] ADULT DENTAL 230 [place], [place] [phone] Camron Rios DDS 230 [place], [place] [phone] Social History Tobacco Use Types Packs/Day Years [...] EDT Patient calling to make apt to excelsior picker parcles documented in this encounter Plan of Treatment Upcoming Encounters Date Type Department Care Team (Late st Contact Info) Description 09/24/2024 2:00 PM EDT Office Visit [facility] MEDICINE 230 [place] [address] Tierney Goncalves FNP 230 [place] [address] documented as of this encounter Visit Diagnoses Not on filedocumented in this encounter Additional Health Concerns Assessment Noted Time PHQ-9 Depression Total Score: 0 05/16/19 24 3:22 PM EST documented as of this encounter Care Teams Supervisor Hand Workers Relationship Specialty Start Date End Date Tierney Goncalves FNP 230 [place] [address] PCP - General Family Medicine 12/27/21 documented as of this encounter
--- OUTSIDE RECORDS SUMMARY | 2024-08-26 12:28 | XMS_ITS | Encounter Summary ---
Author Organization [employer] Address [address] [facility] 7 [place] [address] Care Team Providers Care Field Marketing Associate Name Role Phone [facility] Primary Care Provider [phone] Reason for Visit * Reason Onset Date Comments Prior Authorization 05/16/2024 Encounter Details Date Type Department Care Team (Late st Contact Info) Description 05/16/2024 Telephone [facility] MED & PEDS [address] [place] [address] [facility] [address] [place] [address] Prior Authorization Social History Tobacco Use Types [...] Description 09/24/2024 2:00 PM EDT Office Visit [facility] MEDICINE 230 [place] [address] Tierney Goncalves FNP 230 [place] [address] documented as of this encounter Visit Diagnoses Not on filedocumented in this encounter Additional Health Concerns Assessment Noted Time PHQ-9 Depression Total Score: 0 05/16/19 24 3:22 PM EST documented as of this encounter Care Teams Field Marketing Associate Relationship Specialty Start Date End Date Tierney Goncalves FNP 230 [place] [address] PCP - General Family Medicine 12/27/21 documented as of this encounter
--- OUTSIDE RECORDS SUMMARY | 2024-08-26 12:28 | XMS_ITS | Encounter Summary ---
Author Organization [employer] Address [address] [place] [address] [place] [address] Care Team Providers Care Improvement Lead Name Role Phone [facility] Primary Care Provider [phone] Reason for Visit * Reason Onset Date Comments Nurse Triage 06/05/2024 Encounter Details Date Type Department Care Team ([facility] st Contact Info) Description 06/05/2024 Telephone [facility] MEDICINE 230 [place] [address] [facility] 230 [place], [place] [phone] Nurse Triage Social History Tobacco Use Types [...] is your housing situation today? I have adle hernandez 02/15/[address] you [...] Description 09/24/2024 2:00 PM EDT Office Visit [facility] MEDICINE [address] [place] [address] Tierney Goncalves FNP 230 [place] [address] documented as of this encounter Visit Diagnoses Not on filedocumented in this encounter Additional Health Concerns Assessment Noted Time PHQ-9 Depression Total Score: 0 05/16/19 24 3:22 PM EST documented as of this encounter Care Teams Improvement Lead Relationship Specialty Start Date End Date Tierney Goncalves FNP 230 [place] [address] PCP - General Family Medicine 12/27/21 documented as of this encounter
== END 2024-08-26 13:40 | disposition home or self-care (01) ==
LOC: HO.PMCPRC 10:47
PROVIDERS: PCP Registered Nurse; Visit Provider Anesthesiology
DX: M47.812 Spondylosis without myelopathy or radiculopathy, cervical region (principal)
CPT/HCPCS: 64490; 64491

== ENCOUNTER 2024-09-05 08:00 | Outpatient (AMB) | payer OTHER, SELFPAY ==
--- NOTE | 2024-09-05 08:01 | MHC.OFFVIS ---
Vital Signs 09/05/24 08:04 Height 5 ft 3 in Weight 125 lb BMI 22.1 Intake Visit Reasons: Inj-Left dequervain [id number] WK follow up Intake Note: Adela is a 64 year old left hand dominant female who presents today for a follow up of her Left DeQuervains. She had an injection done with her PCP in April of 2024. She was last seen with us in June where she was given a comfort cool brace. She feels that the injection is still helping her Patient reports that her right hand is improving with physical therapy but is more bothersome than the left. The pain is intermittent, some days are worse than others. Her pain is felt at the crockett aspect of the distal wrist. She has bilateral hand tingling that is mostly felt at night and is more predominant in the left hand. Allergies No Known Allergies [No Known Allergies*] Allergy (Verified 08/26/24 11:00) HPI HPI Inj-Left dequervain [id number] WK follow up: Details: Adela is a 64 year old left hand dominant female who presents today for a follow up of her Left DeQuervains. She had an injection done with her PCP in April of 2024. She was last seen with us in June where she was given a comfort cool brace. She feels that the injection is still helping her Patient reports that her right hand is improving with physical therapy but is more bothersome than the left. The pain is intermittent, some days are worse than others. Her pain is felt at the crockett aspect of the distal wrist. She has bilateral hand tingling that is mostly felt at night and is more predominant in the left hand. [facility] Medical History Cervical high risk HPV (human papillomavirus) test positive Fibromyalgia Elevated cholesterol Weight loss Karina's disease Non-toxic multinodular goiter Osteoarthritis of left hip Schatzki's ring Hiatal hernia Hx of migraines History of multinodular goiter IBS (irritable bowel syndrome) GERD (gastroesophageal reflux disease) Dysphagia Chronic pain syndrome Spondylosis, lumbar, with myelopathy Sacroiliitis Surgical History History of bilateral tubal ligation Hx of dilation and curettage Hx of arthroscopy of right knee History of esophagogastroduodenoscopy (EGD) Hx of colonoscopy History of cholecystectomy Family History Father Unknown family medical history Mother Arthritis Diverticulitis Gastritis Breast cancer Chronic asthma Adenomatous colon polyp HTN (hypertension) Maternal Grandmother Colon cancer Daughter Hypothyroid Daughter Traveling blood clot in leg Obesity Prediabetes Social History Household Members: Spouse Housing: House Are you a primary post anesthesia care unit nurse to a significant other at home: No Do you presently have visiting nurse or other home services: No Alcohol intake: never Patient Tobacco Use Status: Former Tobacco user Tobacco use type: Cigarette Years Smoked: 20 service: No Current occupational status: employed Current occupation: [employer]/Lt handed Female 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 History Menstrual Age of Menarche: 13 Review of Systems Const All systems reviewed & are unremarkable except as noted in HPI and below Physical Exam Vital Signs: BMI result Body Mass Index 22.1 Extrem Other: Patient is alert, oriented, and in no acute distress. Neuro: Normal sensation of the tips of all digits of the bilateral hand at this time Vascular: Cap refill brisk Pain: Very mild tenderness to palpation about the 1st dorsal compartment on the right side No tenderness to palpation anywhere in the left hand or wrist ROM: Patient is able to make a closed fist and extend all digits of both hands fully Range of motion of bilateral wrists full and intact, but slightly painful Skin: No lacerations or abrasions. General: No ecchymosis, erythema, or evidence of infection. Psych: Appears grossly normal Affect normal Attitude cooperative Office Procedures AMB Tendon Injection Tendon Injection [id number] Tendon Sheath Injection All charges added?: Procedure code (CPT) selection complete Assessment & Plan Assessment & Plan (1) De Quervain's tenosynovitis, right: Code(s): M65.4 - Radial styloid tenosynovitis [de Quervain] Category: Medical (2) Numbness and tingling in both hands: Code(s): R20.0 - Anesthesia of skin; R20.2 - Paresthesia of skin Category: Medical Plan 1. De Quervain tenosynovitis, right Patient is educated about this condition Patient is educated about the treatment options available At this time, patient would like to proceed with steroid injection, as injection on the left offered her very good relief. Injection #2: The risks and benefits of a steroid injection including but not limited to risk of damage to blood vessels, nerves, tendons, infection, skin bleaching, failure to improve symptoms, increased pain, and possible need for further injections or other intervention were discussed with the patient and the patient wishes to proceed with the steroid injection. Once consent was obtained, I sterilely prepped the area over the 1st dorsal compartment of the right thumb. I then injected the 1st dorsal compartment with a combination of 1 mL of dexamethasone (4mg/ml), and 1% lidocaine. The patient tolerated the procedure well with no complications and good resolution of their symptoms prior to leaving clinic. If the patient continues to have pain 6-8 weeks following this injection, they may call to schedule appointment to discuss alternative treatment options 2. Numbness and tingling of both hands Symptoms intermittent, daily, worse at night Previous EMG done in March was negative New EMG ordered to assess the health of the nerves of bilateral upper extremities Follow-up after EMG nerve conduction study, sooner with any acute concerns Orders: Orders NE electromyogram (EMG) Today R20.0 - Anesthesia of skin, R20.2 - Paresthesia of skin NE nerve conduction velocity Today R20.0 - Anesthesia of skin, R20.2 - Paresthesia of skin Coding Level of Care Code Est Pt Level 3 (00268) Diagnoses De Quervain's tenosynovitis, right M65.4 Numbness and tingling in both hands R20.0; R20.2 CPT Codes Tendon Injection - Tendon Injection 1: [id number] Tendon Sheath Injection ([id number])
--- OUTSIDE RECORDS SUMMARY | 2024-09-05 08:03 | XMS_ITS | Encounter Summary ---
Author Organization [employer] Address [address] [place] [address] Care Team Providers Care Grocery Deliverer Name Role Phone Tierney Goncalves [employer] ADMINISTRATOR Primary Care Provider [phone] Encounter Details Date Type Department Care Team ([facility] st Contact Info) Description 09/07/[address] [facility] [address] [place], [place] [phone] Camron Rios, BITAS [address] [place], [place] [phone] Social History Tobacco Use Types Packs/Day Years [...] 09/24/2024 2:00 PM EDT Office Visit [facility] [address] [place] [address] Tierney Goncalves FNP [address] [place] [address] documented as of this encounter Visit Diagnoses Not on filedocumented in this encounter Additional Health Concerns Assessment Noted Time PHQ-9 Depression Total Score: 0 05/16/19 24 3:22 PM EST documented as of this encounter Care Teams Grocery Deliverer Relationship Specialty Start Date End Date Tierney Goncalves FNP [address] [place] [address] PCP - General Family Medicine 12/27/21 documented as of this encounter
--- OUTSIDE RECORDS SUMMARY | 2024-09-05 08:03 | XMS_ITS | Encounter Summary ---
Author Organization [employer] Address [address] [facility] 7t [place] [address] Care Team Providers Care Nuclear Cardiology Technologist Name Role Phone [facility] Primary Care Provider [phone] Reason for Visit * Reason Comments Med Refill Encounter Details Date Type Department Care Team ([facility] st Contact Info) Description 08/19/2023 Refill [facility] MEDICINE [address] [place], [place] [phone] [facility] [address] [place] [address] Fibromyalgia Social History Tobacco Use Types Packs/Day [...] Description 09/24/2024 2:00 PM EDT Office Visit [facility]INE [address] [place] [address] Tierney Goncalves FNP [address] [place] [address] documented as of this encounter Visit Diagnoses Diagnosis Fibromyalgia Unspecified myalgia and myositis documented in this encounter Additional Health Concerns Assessment Noted Time PHQ-9 Depression Total Score: 0 05/16/19 24 3:22 PM EST documented as of this encounter Care Teams Nuclear Cardiology Technologist Relationship Specialty Start Date End Date Tierney Goncalves FNP [address] [place] [address] PCP - General Family Medicine 12/27/21 documented as of this encounter
--- OUTSIDE RECORDS SUMMARY | 2024-09-05 08:03 | XMS_ITS | Encounter Summary ---
Author Organization [employer] Address [address] [place] [address] Care Team Providers Care Rocket Test Fire Worker Name Role Phone [facility] Primary Care Provider Encounter Details Date Type Department Care Team (Late st Contact Info) Description 08/05/2024 Orders Only [facility] [address] [place] [address] ProviderEvon MD Social History Tobacco Use Types [...] 2:00 PM EDT Office Visit [facility] [address] [place] [address] IvannaTierney [facility] [address] [place] [address] documented as of this encounter Procedures Procedure [...] documented as of this encounter Care Teams Rocket Test Fire Worker Relationship Specialty Start Date End Date Ivanna Tierney [facility] [address] [place] [address] PCP - General Family Medicine 12/27/21 documented as of this encounter
--- OUTSIDE RECORDS SUMMARY | 2024-09-05 08:03 | XMS_ITS | Encounter Summary ---
Author Organization [employer] Address [address] [facility] [address] [place] [address] Care Team Providers Care Requisition Approver Name Role Phone [facility] Primary Care Provider [phone] Reason for Visit * Reason Onset Date Comments Nurse Triage 06/05/2024 Encounter Details Date Type Department Care Team (Late st Contact Info) Description 06/05/2024 Telephone [facility] [address] [place] [address] [facility] [address] [place] [address] Nurse Triage Social History Tobacco Use Types [...] Description 09/24/2024 2:00 PM EDT Office Visit [facility] [address] [place] [address] Tierney Goncalves FNP [address] [place] [address] documented as of this encounter Visit Diagnoses Not on filedocumented in this encounter Additional Health Concerns Assessment Noted Time PHQ-9 Depression Total Score: 0 05/16/19 24 3:22 PM EST documented as of this encounter Care Teams Requisition Approver Relationship Specialty Start Date End Date Tierney Goncalves FNP [address] [place] [address] PCP - General Family Medicine 12/27/21 documented as of this encounter
--- OUTSIDE RECORDS SUMMARY | 2024-09-05 08:03 | XMS_ITS | Encounter Summary ---
Author Organization [employer] Address [address] [place] [address] [address] [place] [address] Care Team Providers Care Appraisal Technician Name Role Phone Tierney Goncalves [facility] Primary Care Provider Encounter Details Date Type Department Care Team ([facility] Contact Info) Description 05/16/2022 Telephone [facility] [address] [place], [place] [phone] Tierney Goncalves [facility] [address] [place] [address] Social History Tobacco Use Types Packs/Day Years [...] Upcoming Encounters Date Type Department Care Team ([facility] Contact Info) Description 09/24/2024 2:00 PM EDT Office Visit [facility] [address] [place] [phone] Tierney Goncalves FNP [address] [place] [address] documented as of this encounter Visit Diagnoses Not on filedocumented in this encounter Care Teams Appraisal Technician Relationship Specialty Start Date End Date Tierney Goncalves FNP [address] [place] [address] PCP - General Family Medicine 12/27/21 documented as of this encounter
--- OUTSIDE RECORDS SUMMARY | 2024-09-05 08:03 | XMS_ITS | Clinical Summary ---
Author Organization [employer] Address [address] [place] [address] Care Team Providers Care Prawn Trawler Hand Name Role Phone Ivanna [facility] Primary Care Provider [phone] Allergies No known active allergies Medications omeprazole [...] Negative EMB 09/01/22 ? ? Followed by [facility] T[employer]Y MANAGEMENT SALES CONSULTANT Mixed hyperlipidemia 05/26/2022 Overview (05/26/2022): ?? 03/2022 ASCVD 2.8% ?? Diet controlled Healthcare maintenance 04/02/2022 Overview (08/15/2023): Mammo: 02/2023 bi-rads 2 Pap: 05/2021 though [facility] [employer] MANA[employer]EMENT SALES CONSULTANT, NIL HPV +'colpo PADMINI 1, repeat co-testing due 09/2023 C-scope: 2017, has upcoming appointment BMD: Routine age 67 HCV Screen: Neg 2016 HIV Screen: Neg 2015 Immunizations: declines COVID booster today. Otherwise UTD Screening Labs: A1c-4.8, 2020 Assessment & Plan (04/02/2022 1:22 PM EST): Mammo: 02/2022 bi-rads 2, repeat 02/2023 Pap: 05/2021 though [facility] T[employer] MANAGEMENT SALES CONSULTANT, NIL HPV +, pt does not now [...] dysphagia and early satiety - Followed by [facility] GI with previously benign EGD w/ esophageal spasm, negative gastric emptying study, neg. H.pylori biopsy Osteoarthritis of facet joint of lumbar spine Overview (05/18/2022): - Hx of sacroilitis - Previously seen by [facility] ortho and pain mngmt; has received numerous steroid injections with minimal sx improvement. Has tried PT for various concerns without improvement. - Is not currently followed by ortho or pain mngmt ?? Non-toxic multinodular goiter 07/20/2017 Overview (05/18/2022): Benign multi-nodular goiter followed by [facility] endo. Per lats visit note 08/2021, patient to reconsider thyroidectomy if sx of dysphagia worsen; has follow up in 6 months - Per chart review pt was referred to [place] for possible thyroidectomy however pt does not have transportation. Insurance barriers limit more local access. -FNA of left mid pole nodule on 04/20/16 consistent with benign follicular nodule. 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 Per visit note plan to monitor q. 6 months and consider biopsy if WBC count < 2 or development of B sx Diffuse spasm of esophagus 05/17/2016 Fibromyalgia 04/28/2016 Overview (01/02/2023): ?? Duloxetine 40mg daily ?? Amitriptyline 10mg at bedtime ?? Chronic back pain, shoulder pain ?? Hx of sacroilitis ?? Previously seen by [facility] ortho and pain mngmt; has received numerous [...] Description 08/06/2024 9:30 AM EDT Office Visit [facility] MEDICINE [address] [place] [address] Jannet Mensah NP Elevated liver enzymes (Primary Dx); Low serum potassium 08/06/2024 Travel 08/05/2024 Orders Only [facility] CHC MED & PEDS [address] [place], [place] [phone] ProviderEvon MD 08/05/2024 Telephone [facility] [address] [place] [address] IvannaTierney wright [facility] ER Follow-up; Nurse Triage 08/04/2024 Orders Only GENERIC EXTERNAL DATA DEPARTMENT Provider, [facility] External Data 07/18/2024 Orders Only [facility] External Provider, [facility] 07/09/2024 Refill [facility] [address] [place] [address] IvannaTierney wright [facility] Fibromyalgia 06/13/2024 Orders Only [facility] External Provider, [facility] from Last 3 Months Immunizations Name Administration [...] Description 09/24/2024 2:00 PM EDT Office Visit [facility] MEDICINE [address] [place] [address] Irwin, Tierney, SIZING MACHINE TENDER [address] [place] [address] Health Maintenance Due Date Last Done Comments [...] included. Sodium 140 135 - 145 mmol/L [facility] Potassium 3.5 3.3 - 5.1 mmol/L [facility] Chloride 109(H) 96 - 108 mmol/L [facility] Carbon Dioxide 26 22 - 29 mmol/L [facility] Anion Gap 9(L) 12 - 20 [facility] Urea Nitrogen (BUN) 12 9 - 16 mg/dL [facility] Creatinine, Serum 0.75 0.5 - 1.4 mg/dL [facility] Estimated Glomerular Filt Rate >60 [facility] Comment:Chronic Kidney Disea se: Estimated GFR < 60 mL/min/1.89p3Fmkbuy Kidney Disease: Estimated GFR < 15 mL/min/1.73m2 Glucose 84 60 - 115 mg/dL [facility] Calcium 9.0 8.4 - 10.2 mg/dL [facility] Bilirubin, Total 0.4 0.0 - 1.0 mg/dL [facility] Aspartate Amino Transferase 165(H) 5 - 31 U/L [facility] Alanine Aminotransferase 464(H) 0 - 31 U/L [facility] Total Protein 7.1 6.5 - 8.0 g/dL [facility] Albumin Level 4.0 3.5 - 5.0 g/dL [facility] Alkaline Phosphatase 225(H) 39 - 117 U/L [facility] Blood Venous blood specimen / Unknown 08/06/2024 10:13 AM EDT 08/06/2024 11:45 AM EDT Jannet Mensah VIDEO GAME MAKER LAB BLOOD ORDERABLES Final Resu lt [facility] [address] [place] [phone] * Lactic Acid (08/04/2024 10:03 AM EDT) Lactic Acid 0.9 0.5 - 2.0 mmol/L [facility] 08/04/2024 10:0 3 AM EDT 08/04/2024 10:07 AM EDT Generic External Data Provider LAB BLOOD ORDERAB LES Final Result Performing Organization Address [facility] de Phone Number [facility] [address] [place] [phone] * Blood Culture (First) (08/04/2024 10:02 AM EDT) Blood Venous blood specimen / Unknown 08/04/2024 10:02 AM EDT 08/04/2024 10:07 AM EDT Comment:Blood Narrative [facility] - 08/09/2024 12:07 PM EDT Blood Culture (First) No growth after 5 days. Specimen Source: Blood Generic External Data Provider LAB MICROBIOLOGY - GENERAL ORDERABLES Final Result Performing Organization Address [facility] Phone Number [facility] [address] [place] [phone] * Blood Culture (Second) (08/04/2024 10:02 AM EDT) Blood Venous blood specimen / Unknown 08/04/2024 10:02 AM EDT 08/04/2024 10:07 AM EDT Comment:Blood Narrative [facility] - 08/09/2024 12:07 PM EDT Blood Culture (Second) No growth after 5 days. Specimen Source: Blood Generic External Data Provider LAB MICROBIOLOGY - GENERAL ORDERABLES Final Result Performing Organization Address [facility] de Phone Number [facility] [address] [place] [phone] * SARS-CoV-2 RNA, Influenza A/B, and RSV RNA, Ql NAAT (08/04/2024 9:22 AM EDT) Influenza A PCR NEGATIVE Negative [facility] Influenza B PCR NEGATIVE Negative [facility] Resp Syncy Virus RNA Qual PCR NEGATIVE Negative [facility] SARS COV2 PCR NEGATIVE Negative [facility] Comment:All test results mus t [...] use by authorized laboratories.Testing performed on the [employer] GeneXpert utilizingreal-time RT-PCR.All SARS CoV2 and positive influenza A/B results arereported to [facility]. 08/04/2024 9:22 AM EDT 08/04/2024 9:26 AM EDT us Generic External Data Provider LAB MICROBIOLOGY - GENERAL ORDERABLES Final Result [facility] [address] [place] [phone] * CT Abdomen Pelvis w/ Contrast (08/04/2024 9:04 AM EDT) Anatomical Region Laterality Modality Body, Pelvis, Abdomen Computed T omography 08/04/2024 9:04 AM EDT Narrative 08/04/2024 9:39 AM EDT ? [facility] ?[address] ?[place] [address] ? CT Scan Report ? Signed ? Patient: Flynn,Alba Y ?MR#: [id number] ? : 1960 ?Acct:[id number] ? Age/Sex: 64 / F ?ADM Date: 08/04/ ? Loc: HO.ED ? Attending Dr: ? Ordering Physician: Angelika Skaggs DO ?? Date of Service: 08/04/24 ?? Procedure(s): CT abdomen pelvis w IV con ?? Accession Number(s): [id number] ? cc: Angelika Skaggs DO; Tiereny Goncalves SIZING MACHINE TENDER ? Report Number: ?? [id number]: Total DLP = ??339.00 mGy-cm ?? EXAMINATION: [...] ? DD/ 3 ? TD/TT: 08/04/24919 ? Lathe Winder: ? Procedure Note Rico Nelson - 08/04/[address] [address] [place] Scan Report Signed Patient: Adela Flynn YMR#: [id number] : 1960cct:[id number] Age/Sex: 64 / FADM Date: 08/04/24 Loc: HO.ED Attending Dr: Ordering Physician: Angelika Skaggs DO Date of Service: 08/04/24 Procedure(s): CT abdomen pelvis w IV con Accession Number(s): [id number] cc: Angelika Skaggs DO; [facility] Report Number: [id number]: Total DLP = 339.00 mGy-cm EXAMINATION: CT [...] in OV> 08/04/24934 DD/ 3 TD/TT: 08/04/24919 Lathe Winder: [facility] External Provider IMG CT PROCEDURES Final Result * (ABNORMAL) Urinalysis, Complete, with Reflex to Culture (08/04/2024 8:24 AM EDT) Color Urine Yellow [facility] Appearance Urine Clear [facility] PH 6.0 5.0 - 9.0 [facility] Glucose Urine UA Negative Negative mg/dL [facility] Urine Blood Moderate (2+)(A) Negative [facility] Specific [place] - Urine 1.015 1.005 - 1.025 [facility] Urine Protein Negative Neg-Trace mg/dL [facility] Urine Ketones 15 Negative mg/dL [facility] Nitrite Urine Negative Negative [facility] Leukocyte Esterase Urine Negative Negative [facility] RBC Urine 11-20(A) 0 - 2 /HPF [facility] Urine WBC 0-5 0 - 5 /HPF [facility] Urine Squamous Epithelial Cell 0-2 0 - 2 /HPF [facility] Urine Bacteria None Seen None Seen [facility] Hyaline Casts, Urine 0-2 0 - 2 /LPF [facility] 08/04/2024 8:24 AM EDT 08/04/2024 8:27 AM EDT Narrative [facility] - 08/04/2024 8:37 AM EDT [id number], Clean Catch us Generic External Data Provider LAB URINE ORDERAB LES Final Result [facility] [address] [facility] [place] [phone] * US Abdomen Limited (08/04/2024 8:08 AM EDT) Anatomical Region Laterality Modality Abdomen Ultrasound 08/04/2024 8:08 AM EDT Narrative 08/04/2024 9:05 AM EDT ? [facility] ?[address] ?[place] [address] ? Ultrasound Report ? Signed ? Patient: Flynn,Alba Y ?MR#: [id number] ? : 1960 ?Acct:[id number] ? Age/Sex: 64 / F ?ADM Date: 08/04/24 ? Loc: HO.ED ? Attending Dr: ? Ordering Physician: Angelika Skaggs DO ?? Date of Service: 08/04/24 ?? Procedure(s): US abdomen limited ?? Accession Number(s): [id number] ? cc: Angelika Skaggs DO; Tierney Goncalves SIZING MACHINE TENDER ? EXAMINATION: ??US ABDOMEN LIMITED ? HISTORY: [...] DD/ 0808 ? TD/TT: 08/04/24 0815 ? Lathe Winder: ? Procedure Note Rico Nelson - 08/04/2024 [place] [address] Ultrasound Report Signed Patient: Adela Flynn YMR#: [id number] : 1960cct:[id number] Age/Sex: 64 / FADM Date: 08/04/24 Loc: HO.ED Attending Dr: Ordering Physician: Angelika Skaggs DO Date of Service: 08/04/24 Procedure(s): US abdomen limited Accession Number(s): [id number] cc: Angelika Skaggs DO; Tierney Goncalves [facility] EXAMINATION: US ABDOMEN LIMITED HISTORY: abnormal [...] 08/04/24 0902 DD/ 0808 TD/TT: 08/04/24 0815 Lathe Winder: [facility] External Provider IMG US PROCEDURES Final Result * Hepatitis Panel, General (08/04/2024 7:29 AM EDT) Hepatitis A IgM Nonreactive Nonreactive [facility] Comment:IgM antibodies to SERRANO V not detected; does not exclude earlyacute or recovered HAV infection. ~Hepatitis B Surface Antibody REACTIVE Nonreactive [facility] Comment:REACTIVE: > 11.99 mI U/mL Hepatitis B Core Antibody Nonreactive Nonreactive [facility] Hepatitis C Antibody Nonreactive Nonreactive [facility] Comment:Antibodies to HCV no t detected; does not exclude early acuteHCV infection. Hepatitis B Surface Ag Negative Negative [facility] 08/04/2024 7:29 AM EDT 08/04/2024 7:34 AM EDT us Generic External Data Provider LAB BLOOD ORDERAB LES Final Result Performing Organization Address City/[facility]/ZIP Co de Phone Number [facility] [address] [place] [phone] * Acetaminophen level (08/04/2024 7:29 AM EDT) Pathologist [facility] Acetaminophen LAB <3 <30 mcg/mL [facility] 08/04/2024 7:29 AM EDT 08/04/2024 7:34 AM EDT Generic External Data Provider LAB BLOOD ORDERAB LES Final Result Performing Organization Address [facility] Co de Phone Number [facility] [address] [place] [phone] * (ABNORMAL) CBC auto differential (08/04/2024 5:48 AM EDT) [facility] White Blood Count 3.8(L) 4.8 - 10.8 X10*3/uL [facility] Red Blood Count 4.08(L) 4.20 - 5.50 X10*6/uL [facility] Hemoglobin 12.3 12.0 - 16.0 g/dl [facility] Hematocrit 36.6(L) 37.0 - 47.0 % [facility] Mean Corpuscular Volume 89.7 80.0 - 98.0 fL [facility] Mean Corpuscular Hemoglobin 30.1 27.0 - 33.0 pg [facility] Mean Corpuscular HGB Conc 33.6 31.0 - 35.0 g/dl [facility] Red Cell Distribution Width 12.5 11.0 - 16.0 % [facility] Platelet Count 232 160 - 400 X10*3/uL [facility] Mean Platelet Volume 9.4 9.4 - 12.3 fL [facility] Neutrophils Percent Auto 89.6(H) 45 - 73 % [facility] Imm Gran Pct Auto 0.3 0.0 - 0.4 % [facility] Lymphocytes Percent Auto 4.0(L) 20 - 40 % [facility] Monocytes Percent Auto 4.0 2 - 11 % [facility] Eosinophils Percent Auto 1.8 0 - 4 % [facility] Basophils Percent Auto 0.3 0 - 2 % [facility] NRBC Pct Auto 0.0 0.0 - 0.2 /100WBC [facility] Neutrophils Absolute Auto 3.4 2.0 - 8.3 x10*3/uL [facility] Imm Gran Abs Auto 0.01 0.00 - 0.03 X10*3/uL [facility] Lymphocytes Absolute Auto 0.2(L) 1.2 - 4.9 X10*3/uL [facility] Monocytes Absolute Auto 0.2 0.1 - 1.2 X10*3/uL [facility] Eosinophils Absolute Auto 0.1 0.0 - 0.4 X10*3/uL [facility] Basophils Absolute Auto 0.0 0.0 - 0.2 X10*3/uL [facility] NRBC Abs Auto 0.000 0.0 - 0.012 X10*3/uL [facility] 08/04/2024 5:48 AM EDT 08/04/2024 5:51 AM EDT us Generic External Data Provider LAB BLOOD ORDERAB LES Final Result Performing Organization Address City/[facility]/ZIP Co de Phone Number [facility] [address] [place] [phone] * Lipase (08/04/2024 5:48 AM EDT) Lipase 9 8 - 78 U/L [facility] 08/04/2024 5:48 AM EDT 08/04/2024 5:51 AM EDT us Generic External Data Provider LAB BLOOD ORDERAB LES Final Result Performing Organization Address City/[facility] Co de Phone Number [facility] [address] [place] [phone] * XR Wrist 3+ Views Left (07/21/2024 11:32 AM EDT) Anatomical Region Laterality Modality Upper Extremities, Wrist Left Radiogr aphic Imaging 07/21/2024 11:3 2 AM EDT Narrative 07/21/2024 11:34 AM EDT ? [facility] ? [address] ?[place] ?XRay Report ? Signed ? Patient: Flynn,Alba Y ?MR#: [id number] ? : 1960 ?Acct:[id number] ? Age/Sex: 64 / F ?ADM Date: 07/18/24 ? Loc: HO.HOSX ? Attending Dr: Carroll DAVALOS ? Ordering Physician: Carroll Bowser ?? Date of Service: 07/18/24 ?? Procedure(s): XR wrist LT min 3V ?? Accession Number(s): [id number] ? cc: Carroll Bowser; Tierney Goncalves [facility] ? CLINICAL HISTORY: M25.532 - Pain [...] DD/ 1132 ? TD/TT: 07/21/24 1132 ? Lathe Winder: ? Procedure Note Omar, Rico - 07/21/2024 [facility] [address] [place] [address] [address] [place] [address] XRay Report Signed Patient: Adela [place] YMR#: [id number] : 2Acct:[id number] Age/Sex: 64 / FADM Date: 07/18/24 [facility]: Carroll DAVALOS Ordering Physician: Carroll Bowser Date of Service: 07/18/24 Procedure(s): XR wrist LT min 3V Accession Number(s): [id number] cc: Carroll Bowser; [facility] CLINICAL HISTORY: M25.532 - Pain in left [...] 07/21/24 1133 DD/ 1132 TD/TT: 07/21/24 1132 Lathe Winder: [facility] External Provider IMG XR PROCEDURES Final Result * XR Wrist 3+ Views Right (07/21/2024 11:31 AM EDT) Anatomical Region Laterality Modality Upper Extremities, Wrist Right Radiogr aphic Imaging 07/21/2024 11:3 1 AM EDT Narrative 07/21/2024 11:32 AM EDT ? [facility] ? [address] ?[place] [address] ?XRay Report ? Signed ? Patient: Flynn,Alba Y ?MR#: [id number] ? : 1960 ?Acct:[id number] ? Age/Sex: 64 / F ?ADM Date: 07/18/24 ? Loc: HO.HOSX ? Attending Dr: Carroll DAVALOS ? Ordering Physician: Carroll Bowser ?? Date of Service: 07/18/24 ?? Procedure(s): XR wrist RT min 3V ?? Accession Number(s): [id number] ? cc: Carroll Bowser; Tierney Goncalves SIZING MACHINE TENDER ? CLINICAL HISTORY: M25.531 - Pain in [...] DD/ 113 ? TD/TT: 07/21/24 1131 ? Lathe Winder: ? Procedure Note Donjanaecalvinter, Image - 07/21/2024 [facility] [address] [place] [address] Drive [address] [place] [address] XRay Report Signed Patient: Adela [place] YMR#: [id number] : 2Acct:[id number] Age/Sex: 64 / FADM Date: 07/18/24 Loc: JAZMIN Attending Dr: Carroll DAVALOS Ordering Physician: Carroll Bowser Date of Service: 07/18/24 Procedure(s): XR wrist RT min 3V Accession Number(s): [id number] cc: Carroll Bowser; [facility] CLINICAL HISTORY: M25.531 - Pain in right [...] 07/21/24 1131 DD/ 1131 TD/TT: 07/21/24 1131 Lathe Winder: [facility] External Provider IMG XR PROCEDURES Final Result * XR Shoulder 2+ Views Left (06/14/2024 5:38 AM EST) Anatomical Region Laterality Modality Upper Extremities, Shoulder Left Radi ographic Imaging 06/14/2024 5:38 AM EST Narrative 06/14/2024 5:39 AM EST ? [facility] ?[address] ?[place] [address] ?XRay Report ? Signed ? Patient: Flynn,Alba Y ?MR#: [id number] ? : 1960 ?Acct:[id number] ? Age/Sex: 64 / F ?ADM Date: 06/13/24 ? Loc: HO.XRAY ? Attending Dr: Kanika Liz SIZING MACHINE TENDER ? Ordering Physician: Kanika Liz ?? Date of Service: 06/13/24 ?? Procedure(s): XR shoulder LT min 2V ?? Accession Number(s): [id number] ? cc: Kanika Liz SIZING MACHINE TENDER; Tierney Goncalves SIZING MACHINE TENDER ? CLINICAL HISTORY: M25.512 - Pain in left shoulder ? 4 view left shoulder ? Comparison: CR/NY/SR - XR SHOULDER LT MIN 2V - 11/01/21 15:06 EDT ? Findings: ?? No fractures or dislocations. ?? Gtdb-pz-hmtplyrd osteoarthritic changes of the AC joint. ?? No erosions. No radiopaque foreign body. ? IMPRESSION: ?? 1. No acute findings ? This document has been electronically signed by: Diego Fan MD on ?? 06/14/2024 05:38:17 ? Dictated By: ?Diego Fan MD ? Signed By: ?<Electronically signed by Diego Fan MD in OV> ?06/14/24537 ? DD/ 7 ? TD/TT: 06/14/24537 ? Lathe Winder: ? Procedure Note Omar, Image - 06/14/2024 [place] [address] XRay Report Signed Patient: Adela [place] YMR#: [id number] : 2Acct:[id number] Age/Sex: 64 / FADM Date: 06/13/24 Loc: RAUL Attending Dr: Kanika SOL Ordering Physician: Kanika Liz Date of Service: 06/13/24 Procedure(s): XR shoulder LT min 2V Accession Number(s): [id number] cc: Kanika Liz; [facility] SIZING MACHINE TENDER CLINICAL HISTORY: M25.512 - Pain in left shoulder 4 view left shoulder Comparison: CR/NY/SR - XR SHOULDER LT MIN 2V - 11/01/21 15:06 EDT Findings: No fractures or dislocations. Lvqq-mp-fcwoquxi osteoarthritic changes of the AC joint. No erosions. No radiopaque foreign body. IMPRESSION: 1. No acute findings This document has been electronically signed by: Diego Fan MD on 06/14/2024 05:38:17 Dictated By: Diego Fan MD Signed By: <Electronically signed by Diego Fan MD in OV> 06/14/24 0538 DD/ TD/TT: 06/14/2438 Lathe Winder: [facility] External Provider IMG XR PROCEDURES Edited Result - Final * BI Mammogram Screening Tomosynthesis Bilateral (03/17/2024 2:15 PM EST) Anatomical Region Laterality Modality Breast Bilateral Mammography 03/17/2024 2:15 PM EST Narrative 03/25/2024 3:23 PM EST ? [facility] ? [address] ?[place] [address] ? Mammography Report ? Signed ? Patient: Flynn,Adela Y ?MR#: [id number] ? : 1960 ?Acct:[id number] ? Age/Sex: 64 / F ?ADM Date: 11/18/24 ? Loc: HO.MAMMO ? Attending Dr: Tierney Ivanna SIZING MACHINE TENDER ? Ordering Physician: Irwin,Tierney SIZING MACHINE TENDER ?Results: 2Beni ?? gn Findings ? Date of Service: 11/18/24 ?Follow Up: 1 Year From Orig ?? inal Mammogram ? Procedure(s): MM tomosynthesis screening BI ?? Accession Number(s): [id number] ? cc: Ivanna,Tierney SIZING MACHINE TENDER ? EXAMINATION: ?? MM SCREENING DIGITAL BREAST [...] DD/ 1415 ? TD/TT: 03/17/24 1430 ? Lathe Winder: ? Procedure Note Omar, Image - 03/25/2024 [facility] [address] [place] [address] Mammography Report Signed Patient: Adela [place] YMR#: [id number] : 2Acct:[id number] Age/Sex: 64 / FADM Date: 03/17/24 Loc: HO.MAMMO Attending Dr: Tierney Goncalves SIZING MACHINE TENDER Ordering Physician: Tierney Goncalves FNPResults: 2Beni gn Findings Date of Service: 03/17/24Follow Up: 1 Year From Orig inal Mammogram Procedure(s): MM tomosynthesis screening BI Accession Number(s): [id number] cc: IvannaTierney wright SIZING MACHINE TENDER EXAMINATION: MM SCREENING DIGITAL BREAST TOMOSYNTHESIS, BILATERAL [...] by: Emma Cerda DO 03/25/2024 03:20 PM [facility] Dictated By: Emma Cerda DO Signed By: <Electronically signed by Emma Cerda DO in OV> 03/25/24 1520 DD/ 1415 TD/TT: 03/17/24 1430 Lathe Winder: [facility] SIZING MACHINE TENDER IMG BI PROCEDURES Final Resul t * [...] Most Recently Relevant to Health Maintenance Insurance [facility] , [address] [place] [address] DENTAL - HSN PARTIAL (MEDICAID) Care Teams Prawn Trawler Hand Relationship Specialty Start Date End Date Tierney Goncalves FNP [address] [place] [phone] PCP - General Family Medicine 12/27/21
--- OUTSIDE RECORDS SUMMARY | 2024-09-05 08:03 | XMS_ITS | Encounter Summary ---
Author Organization [employer] Address [address] [facility] 7t [place] [address] Care Team Providers Care Conduit Reamer Operator Name Role Phone Tierney Goncalves MEDICAL RECORD CONSULTANT Primary Care Provider [phone] Reason for Visit * Reason Onset Date Comments case clarification 07/31/2023 Encounter Details Date Type Department Care Team ([facility] st Contact Info) Description 07/31/2023 Telephone [facility] ADULT D[facility]AL [address] [place] [address] Camron Rios DDS [address] [place], [place] [phone] case clarification Social History Tobacco Use Types [...] it a metal clasp or clear clasp? [facility] contact lab for clarification documented in this encounter Plan of Treatment Upcoming Encounters Date Type Department Care Team (Late st Contact Info) Description 09/24/2024 2:00 PM EDT Office Visit [facility] MEDICINE [address] [place] [address] Tierney Goncalves FNP [address] [place] [address] documented as of this encounter Visit Diagnoses Not on filedocumented in this encounter Additional Health Concerns Assessment Noted Time PHQ-9 Depression Total Score: 0 05/16/19 24 3:22 PM EST documented as of this encounter Care Teams Conduit Reamer Operator Relationship Specialty Start Date End Date Tierney Goncalves FNP [address] [place] [address] PCP - General Family Medicine 12/27/21 documented as of this encounter
--- OUTSIDE RECORDS SUMMARY | 2024-09-05 08:03 | XMS_ITS | Encounter Summary ---
Author Organization [employer] Address [address] [facility] 7t [place] [address] Care Team Providers Care Airport Refueling Handler Name Role Phone [facility] Primary Care Provider [phone] Reason for Visit * Reason Onset Date Comments ER Follow-up 08/05/2024 Nurse Triage 08/05/2024 Encounter Details Date Type Department Care Team (Late st Contact Info) Description 08/05/2024 Telephone [facility] MEDICINE [address] [place] [address] [facility] [address] [place], [place] [phone] ER Follow-up; Nurse Triage Social History Tobacco [...] 08/05/2024 10:11 AM EDT Date: 08/04/24 Hospital: [facility] Seen for: elevated liver function Symptomatic Yes, can't really eat due to feeling nauseous Pt. States was told needs liver function testing within 48 hours. Called pt. She states she started feeling sick to her stomach x 2 days ago. Pt. Had vomiting ,diarrhea, and chills. Pt went to [facility] ED on 08/04/24. Provider in ED stated [...] pt. Chart but I do not see [facility] ED note in chart. Will send request for [facility] ED report from 08/04/24 to be put [...] For 08/06/24 at 930am with Harika Mensah CANAL DRIVER for [facility] ED FU and discussion to repeat labs [...] ED visit on : Date: 08/04/24 Hospital: [facility] Seen for: elevated liver function Symptomatic Yes, [...] Description 09/24/2024 2:00 PM EDT Office Visit [facility] MED[facility] [address] [place] [address] Tierney Goncalves FNP [address] [place] [address] documented as of this encounter Visit Diagnoses Not on filedocumented in this encounter Additional Health Concerns Assessment Noted Time PHQ-9 Depression Total Score: 0 05/16/19 24 3:22 PM EST documented as of this encounter Care Teams Airport Refueling Handler Relationship Specialty Start Date End Date Tierney Goncalves FNP [address] [place] [address] PCP - General Family Medicine 12/27/21 documented as of this encounter
--- OUTSIDE RECORDS SUMMARY | 2024-09-05 08:03 | XMS_ITS | Encounter Summary ---
Author Organization [employer] Address [address] [place] [address] [address] [address] Care Team Providers Care International Travel Consultant Name Role Phone [facility] Primary Care Provider [phone] Reason for Visit * Reason Comments Med Refill Encounter Details Date Type Department Care Team ([facility] Contact Info) Description 07/21/2022 Refill [facility] MEDICINE [address] [place] [address] [facility] [address] [place] [address] Joint pain in both hands Social History [...] Upcoming Encounters Date Type Department Care Team ([facility] Contact Info) Description 09/24/2024 2:00 PM EDT Office Visit [facility] MEDICINE [address] [place] [address] Tierney Goncalves FNP [address] [place] [address] documented as of this encounter Visit Diagnoses Diagnosis Joint pain in both hands documented in this encounter Additional Health Concerns Assessment Noted Time PHQ-9 Depression Total Score: 0 05/18/19 23 2:28 PM EST documented as of this encounter Care Teams International Travel Consultant Relationship Specialty Start Date End Date Tierney Goncalves FNP [address] [place] [address] PCP - General Family Medicine 12/27/21 documented as of this encounter
--- OUTSIDE RECORDS SUMMARY | 2024-09-05 08:03 | XMS_ITS | Encounter Summary ---
Author Organization [employer] Address [address] 7[address] [place] [address] Care Team Providers Care Back Filler Operator Name Role Phone [facility] Primary Care Provider [phone] Encounter Details Date Type Department Care Team (Late st Contact Info) Description 08/08/2023 Orders Only [facility] MEDICINE [address] [place] [address] ProviderEvon MD Social History Tobacco Use Types [...] 2:00 PM EDT Office Visit [facility] MEDICINE [address] [place] [address] Tierney Goncalves FNP [address] [place] [address] documented as of this encounter Procedures Procedure [...] documented as of this encounter Care Teams Back Filler Operator Relationship Specialty Start Date End Date Tierney Goncalves FNP [address] [place] [address] PCP - General Family Medicine 12/27/21 documented as of this encounter
--- OUTSIDE RECORDS SUMMARY | 2024-09-05 08:03 | XMS_ITS | Encounter Summary ---
Author Organization [employer] Address [address] [facility] 7t [place] [address] Care Team Providers Care Tabulating Clerk Name Role Phone [facility] Primary Care Provider [phone] Reason for Visit * Reason Onset Date Comments Prior Authorization 05/16/2024 Encounter Details Date Type Department Care Team ([facility] st Contact Info) Description 05/16/2024 Telephone [facility] [address] [place] [address] [facility] [address] [place] [address] Prior Authorization Social History Tobacco Use Types [...] Description 09/24/2024 2:00 PM EDT Office Visit [facility] MEDICINE [address] [place] [address] Tierney Goncalves FNP [address] [place] [address] documented as of this encounter Visit Diagnoses Not on filedocumented in this encounter Additional Health Concerns Assessment Noted Time PHQ-9 Depression Total Score: 0 05/16/19 24 3:22 PM EST documented as of this encounter Care Teams Tabulating Clerk Relationship Specialty Start Date End Date Tierney Goncalves FNP [address] [place] [address] PCP - General Family Medicine 12/27/21 documented as of this encounter
--- OUTSIDE RECORDS SUMMARY | 2024-09-05 08:03 | XMS_ITS | Encounter Summary ---
Author Organization [employer] Address [address] [facility] 7t [place] [address] Care Team Providers Care Auctioneer Art Name Role Phone [facility] Primary Care Provider [phone] Reason for Visit * Reason Comments Med Refill Encounter Details Date Type Department Care Team ([facility] st Contact Info) Description 03/13/2023 Refill [facility] MEDICINE [address] [place], [place] [phone] [facility] [address] [place] [address] Social History Tobacco Use Types Packs/Day Years [...] Description 09/24/2024 2:00 PM EDT Office Visit [facility] MEDICINE [address] [place] [address] Tierney Goncalves FNP [address] [place] [address] documented as of this encounter Visit Diagnoses Not on filedocumented in this encounter Additional Health Concerns Assessment Noted Time PHQ-9 Depression Total Score: 0 12/13/19 23 2:06 PM EDT documented as of this encounter Care Teams Auctioneer Art Relationship Specialty Start Date End Date Tierney Goncalves FNP [address] [place] [address] PCP - General Family Medicine 12/27/21 documented as of this encounter
--- OUTSIDE RECORDS SUMMARY | 2024-09-05 08:03 | XMS_ITS | Encounter Summary ---
Author Organization [employer] Address [address] [place] [address] Care Team Providers Care Construction Teacher Name Role Phone [facility] Primary Care Provider [phone] Encounter Details Date Type Department Care Team (Late st Contact Info) Description 11/13/2023 Orders Only [facility] MEDICINE [address] [place] [address] ProviderEvon MD Social History Tobacco Use Types [...] Description 09/24/2024 2:00 PM EDT Office Visit [facility] MEDICINE [address] [place] [address] Tierney Goncalves FNP [address] [place] [address] documented as of this encounter Procedures Procedure [...] documented as of this encounter Care Teams Construction Teacher Relationship Specialty Start Date End Date Tierney Goncalves FNP [address] [place] [address] PCP - General Family Medicine 12/27/21 documented as of this encounter
[2024-09-05 08:04] VITALS: BMI 22.1
== END 2024-09-05 09:05 | disposition home or self-care (01) ==
PROVIDERS: PCP Registered Nurse
DX: M65.4 Radial styloid tenosynovitis [de Quervain] (principal); R20.0 Anesthesia of skin; R20.2 Paresthesia of skin
CPT/HCPCS: 20550; 99213

== ENCOUNTER → 2024-09-05 08:00 | Outpatient (BNVA) | payer OTHER, SELFPAY | PROVIDERS: PCP Registered Nurse | DX: M65.4 Radial styloid tenosynovitis [de Quervain] (principal); R20.0 Anesthesia of skin; R20.2 Paresthesia of skin | CPT/HCPCS: 20550; J1100; J2003 ==

== ENCOUNTER 2024-09-10 13:48 | Outpatient (RCR) | payer OTHER, SELFPAY ==
--- NOTE | 2024-08-14 16:02 | MHC.OT.OEV ---
[address] [phone] F: [phone] Occupational Therapy Evaluation Patient Name: Adela Flynn Diagnosis: De Quervain's tenosynovitis, OA (B) Date of Onset: Date of Surgery: Attending Provider: Carroll Bowser Prescribed Treatment: Follow Up Appointment: History of Current Condition: Patient is a 64 y/o (L)handed female who was referred to skilled OT for (B) wrist pain. She stated she had a (L) cortisone injection 2 months ago for De Quervain's. She did not receive an injection for the (R)wrist. 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 He chief compliant is her (R)hand and would like treatment to focus on that hand. She reports a 4/10 pain at rest and 9/10 pain during movement which describes as sharp pain. She states her the pain will radiate from her thumb to the dorsum of her hand and 2-3 fingers. Denies numbness/tingling. She lives alone and reports her PLOF as (I)ADLs/IADLs. She wears a brace at home but does not wear at her mothers when she works. She reports difficulty bathing and doing her hair. 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 Driving: Drives to appointments, grocery shopping Vision: Balance: Pain Assessment Pain Score: 9 Pain Scale Used: Numeric (0 - 10) Pain Location and Description: 4/10 pain at rest 9/10 pain during activity sharp Aggravating Factors: Alleviating Factors: Tylenol, uses hot packs, uses lidocaine ointment Skin and Soft Tissue Assessment Skin and Soft Tissue: Comments: skin intact, no edema presents Nerve assessment Ulnar Nerve: Median Nerve: Radial Nerve: Comments: Sensory Assessment Temperature: Light Touch: Proprioception: Vibration: Comments: Edema Assessment Upper Extremity: Lower Extremity: Comments: Dexterity Assessment Dexterity: Comments: WFL Special Tests Comments: (R) [place] (+) AROM(PROM) Strength Cervical Cervical Flexion: Cervical Extension: Cervical Lateral Flexion: Cervical Rotation: Comments: Shoulder Flexion: Extension: Abduction: Internal Rotation: External Rotation: Comments: WFL Flexion: Extension: Abduction: Internal Rotation: External Rotation: Comments: 3+/5 grossly Elbow Flexion: Extension: Pronation: Supination: Comments: WFL Flexion: Extension: Pronation: Supination: Comments: 3+/5 grossly Wrist Flexion: (R)30/65, (L) 47 Extension: (R)50, (L) 53 Ulnar Deviation: (R)25, (L) 15 Radial Deviation: (R)30, (L) 30 Comments: Flexion: Extension: Ulnar Deviation: Radial Deviation: Comments: 3/5 grossly Thumb Thumb CMC Flexion: Thumb MCP Flexion: Thumb IP Flexion: Radial Abduction: Palmar Abduction: [place] (Kapandji 0-10): Comments: WFL Digits Index MCP: PIP: DIP: Long MCP: PIP: DIP: Ring MCP: PIP: DIP: Small MCP: PIP: DIP: Comments: WFL Gross Grasp: (R)10lbs., (L)49lbs. Lateral Pinch: Two-Point Pinch: Three-Jaw Kiran: Comments: WFL Barker Peeler strength submaximal effort Patient Education Primary Language: Mongolian Feather Renovator Required: No Current Knowledge: Understands information with skills for self-management Teaching Method: Demonstration Education Needs Identified on Evaluation: ADL's Disease Information Exercise Pain How did patient/family demonstrate learning? Patient demonstrates Patient verbalizes Barriers to Learning: None Readiness for Learning: Accepting Who was educated? Patient Comments: Plan of Care Assessment: Based on initial OT evaluation patient presents with impaired ROM, impaired strength, pain and impaired performance during self care tasks. Provocative testing revealed (+) Taurus test indicative for De Quervian's of the (R). Quick DASH= 75% indicating patient's perceived UE impairment during self care tasks. During initial assessment patient stated she would like treatment to concentrate on her (R)wrist as her (L)wrist has benefited from the cortisone injection. Due to the documented impairments it is recommended that patient receive skilled OT in order for patient to achieve her PLOF and do enhance patient's quality of life. Thank you for your referral. 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 Patient will be (I) with wear schedule of orthosis PRN LTG Duration: 4 weeks Longterm Goals: Patient will have wrist ROM WFLs Patient will report 0/10 pain in (R)wrist Patient will be (I) with HEP Patient will achieve at least a 30% or less on the Quick DASH indicating improved UE function during ADLs Frequency and Duration: The patient will be seen 2x a week for 4 weeks Treatment Plan: Therapeutic Exercise Therapeutic Activity Home Exercise Program Splinting Patient Education Edema Control ADL Training Ultrasound NMES Iontophoresis Paraffin Fluidotherapy MHP Cold Packs Joint Mobilization Soft Tissue Mobilization Kinesiotaping Other (see comments) Skilled OT eval and treat Electronically Signed By: BARRETT Ferrer/Timo, CLT Reviewed/agree with student documentation: Therapist: Please sign and return to therapist, Thank you for your referral.
--- NOTE | 2024-10-21 14:48 | MHC.OT.DC ---
[address] [phone] F: [phone] Occupational Therapy Discharge Note Patient Name: Adela Flynn Provider: Carroll Bowser Diagnosis: De Quervain's tenosynovitis, OA (B) Date of Surgery: Date of Evaluation: 08/12/24 Date of Discharge: Treatments to Date: 6 Cancellations to Date: No Shows to Date: Discharge Status: Visit Non-compliance Discharge Summary: Patient was attending skilled OT and was progressing, unfortunately she did not return to therpay. Electronically Signed By: Elissa Redding OTR/L Reviewed/agree with student documentation: Therapist: Please Sign and return to therapist, thank you for your referral.
== END 2024-10-21 14:48 | disposition home or self-care (01) ==
LOC: HO.OT 13:48
PROVIDERS: PCP Registered Nurse
DX: M25.531 Pain in right wrist (principal); M25.532 Pain in left wrist
CPT/HCPCS: 97035; 97110; 97140; 97165

== ENCOUNTER 2024-09-11 08:37 | Outpatient (AMB) | payer OTHER, SELFPAY ==
--- NOTE | 2024-09-11 08:40 | MHC.OFFVIS ---
Vital Signs 09/11/24 08:43 Height 5 ft 3 in Weight 128 lb 4 oz BMI 22.7 BP 123/58 L Blood Pressure Location Rt brachial Position Sitting Pulse 50 Pulse Source Pulse Oximeter Pulse Oximetry (%) 97 Oxygen Delivery Method Room Air Intake Visit Reasons: BILATERAL DIAGNOSTIC C4, C5, C6 MBB Intake Note: Pain today 8/10 Precision Jig Grinder Required: No Accompanied by: Self / Same As Patient Allergies No Known Allergies [No Known Allergies*] Allergy (Verified 09/11/24 08:44) HPI Comments Details: The patient is a 64-year-old female presenting with chronic neck and left shoulder pain, one week s/p bilateral diagnostic C4, C5, C6 medial branch blocks on 08/26/24. These blocks temporarily alleviated pain, with the effect lasting several hours before resuming at a higher painful intensity of 8/10. The focus has shifted to persistent left shoulder pain and associated bilateral hand weakness, severely impacting her ability to perform everyday tasks. She is scheduled to undergo EMG testing next month, underlying carpal tunnel syndrome complaints, with previous hand injections providing temporary relief. Left shoulder imaging showed moderate acromioclavicular arthritis. Treatment with steroid injections in the shoulder has been considered as this previously provided good but temporary relief for about 3 months. 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 - Pain onset linked to occupation, chronic in nature. - Current pain described at 8/10 in severity. - Previous severity ratin-2/10 post-medial branch blocks for 6 hours. - Neck pain primarily alleviated by medial branch blocks. - Shoulder pain with associated weakness; more concerning currently. - Excruciating pain episodes have been noted to radiate to the spine. - Shoulder pain interferes significantly with daily activities. - Pain relief for the neck was diagnostic, lasting several hours. - Aggravating factors: Use of arms, neck range of motion, movements - Initial diagnostic relief from medial branch blocks prompted exploration of radiofrequency ablation or peripheral nerve stimulation. - Affect: Pain continues to impact daily activities significantly, contributing to fatigue and frustration. - Analgesia: Medial branch blocks provided temporary relief; current severity escalated to 8/10; awaiting insurance approval for additional interventions. - Adverse Effects: None specifically noted from pain treatments. - Activities of Daily Living: Shoulder pain prominently interferes with the patient?s ability to perform tasks requiring arm use; focus is on returning to functional ability without pain. - Aberrant Drug-Related Behaviors: No concerns related to prescription misuse reported. Past Procedures: 08/26/24: Bilateral Diagnostic C4-C5-C6 MBB-80-90% pain relief for 6 hours PRIOR: Patient presents today for follow up for persistent neck pain and left shoulder pain. She also reports chronic bilateral wrist and hand pain with associated numbness and tingling and recently received cortisone injection in left wrist through [facility] with good but temporary relief. Her recent upper extremities EMG study was normal. Patient reports neck pain has been better since January 2024 but reports worsening left shoulder pain with movements, activities, overhead reaches and sleeping on the left side. Denies previous left shoulder injections or surgery. Denies any recent trauma, injury or falls. She avoids NSAIDs due to GI upset and has been taking Tylenol Arthritis and heat application with minimal and temporary relief. Patient attended [facility] 08/29/23-09/20/23 and completed 5-6 sessions with minimal improvement in functioning but no pain relief. Patient continues to endorse neck pain with movements associated with neck stiffness and spasms Denies any recent cough, cold, infection, fever or any other significant changes in medical history since last office visit PRIOR Dr. Azul 05/08/24: Adela is in my office today to discuss possibility of treatment of her right knee pain which is very severe. Last time she received Euflexxa intra-articular knee injection. The injection was complicated by vasovagal response patient was observed and treated in the office. She reported today that Euflexxa injection lasted only several weeks. Considering the complications injection brought up on the patient and not extensive pain relief I offered patient diagnostic ultrasound-guided femoral nerve block on the right. If this procedure will result in good pain relief for the patient I will consider sprint PNS stimulation to help pain in her knee for a longer period of time. The patient agreed with the plan. I will schedule her for injection as above in the operating room with minimal sedation and mostly observation by anesthesiologist with administration of anticholinergic medications. [facility] Medical History Cervical high risk HPV (human papillomavirus) test positive Fibromyalgia Elevated cholesterol Weight loss Karina's disease Non-toxic multinodular goiter Osteoarthritis of left hip Schatzki's ring Hiatal hernia Hx of migraines History of multinodular goiter IBS (irritable bowel syndrome) GERD (gastroesophageal reflux disease) Dysphagia Chronic pain syndrome Spondylosis, lumbar, with myelopathy Sacroiliitis Surgical History History of bilateral tubal ligation Hx of dilation and curettage Hx of arthroscopy of right knee History of esophagogastroduodenoscopy (EGD) Hx of colonoscopy History of cholecystectomy Family History Father Unknown family medical history Mother Arthritis Diverticulitis Gastritis Breast cancer Chronic asthma Adenomatous colon polyp HTN (hypertension) Maternal Grandmother Colon cancer Daughter Hypothyroid Daughter Traveling blood clot in leg Obesity Prediabetes Social History Household Members: Spouse Housing: House Are you a primary direct care supervisor to a significant other at home: No Do you presently have visiting nurse or other home services: No Alcohol intake: never Patient Tobacco Use Status: Former Tobacco user Tobacco use type: Cigarette Years Smoked: 20 service: No Current occupational status: employed 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 Alert and oriented. Mood and affect appropriate. Follows and participates in conversation appropriately. Respiratory effort is unlabored. No cough. Able to transition from sit to stand unassisted. Ambulates with bilaterally normal heel strike and toe off. Neck Other: Patient with decreased cervical ROM in all planes/especially with lateral rotations, worse on the left. Reports increased pain with cervical extension extension. Lhermitte's test was negative. DTR intact, +1 left and +2 right. Patient demonstrated 5/5 right and 4/5 left motor strength of bilateral upper extremities. Reports pain and difficulty with overhead reaching activities due to left shoulder pain. 2 + radial pulses. Significant tightness throughout left upper trapezius as well as TTP throughout bilateral upper trapezius muscles. No paravertebral tenderness over facet joints bilaterally. Neck: Yes normal visual inspection, Yes full ROM, Yes no lymphadenopathy, No anterior neck swelling, Yes no JVD and No prominent dorsocervical fat pad Back/Spine/Pelvis Cervical Spine: No Lhermitte's sign positive, loss of normal cervical lordosis, cervical muscular tenderness, pain with cervical ROM, cervical spasm (left>right) and No Cervical spine tenderness Thoracic/Lumbar Spine: thoracic and lumbar spine normal to inspection, Lasegue's sign negative, straight leg raise negative bilaterally, pain with thoraco-lumbar ROM, thoraco-lumbar ROM limited, No thoracic spinal tenderness and lumbar spinal tenderness (L4-S1) Extrem General: Yes capillary refill normal, Yes no clubbing, cyanosis or edema and Yes no calf tenderness Results Reviewed Results Reviewed: MR CERVICAL SPINE WITHOUT CONTRAST 06/14/23 CLINICAL INFORMATION: Chronic neck pain with worsening radicular symptoms. COMPARISON: Cervical spine MRI 02/18/2016. FINDINGS: Straightening of the cervical lordosis. The vertebral body heights are maintained. There is moderate to severe disc volume loss at C4-C5 and C5-C6, progressed. Moderate disc volume loss at C3-C4 again noted. There are Modic type I endplate signal changes at C4-C5 and C5-C6. There is no additional bone marrow edema. There are no acute fractures. Craniocervical junction is unremarkable. Partially imaged intracranial compartment is unremarkable. Cervical arterial flow voids are maintained. Partially imaged multinodular thyroid gland is again noted which has been recently evaluated with thyroid ultrasound. C2-C3: A shallow disc protrusion mildly indents the ventral thecal sac. There is no foraminal stenosis. Findings are unchanged. C3-C4: Disc osteophyte mildly indents the ventral thecal sac. There is bilateral facet arthropathy. No significant central canal stenosis and no foraminal stenosis. C4-C5: A small central disc protrusion mildly indents the ventral thecal sac. Uncovertebral joint spurring and facet arthropathy result in worsening mild to moderate left-sided foraminal stenosis. C5-C6: Uncovertebral joint spurring and facet arthropathy result in worsening mild to moderate right-sided foraminal stenosis. No central canal and no left foraminal stenosis. Bilateral facet arthropathy. C6-C7: Slight annular disc bulge. Left greater then right facet arthropathy. No central canal stenosis. Mild foraminal encroachment bilaterally. C7-T1: Disc contour is normal. No central canal stenosis and no foraminal stenosis. IMPRESSION: - Multilevel cervical spondylosis. Spondylitic changes result in progressive mild to moderate left C4-C5 and progressive mild to moderate right C5-C6 foraminal stenosis. There is no severe central canal stenosis within the cervical spine. - Partially imaged multinodular thyroid gland is again noted which has been recently evaluated with thyroid ultrasound. NE electromyogram (EMG); NE nerve conduction velocity 04/17/24 FINDINGS: All motor and sensory nerves tested showed normal latencies, amplitudes and conduction velocities. Concentric needle EMG was performed in selected muscles of the bilateral upper extremities. Study did not reveal signs of electric abnormalities as shown in the table above. IMPRESSION: 1. This is a normal study. 2. There is no electrodiagnostic evidence for median neuropathy, ulnar neuropathy, brachial plexopathy, or cervical radiculopathy. LEFT SHOULDER 4 view 06/14/24 Comparison: CR/IN/SR - XR SHOULDER LT MIN 2V - 11/01/21 15:06 EDT Findings: No fractures or dislocations. [id number] osteoarthritic changes of the AC joint. No erosions. No radiopaque foreign body. IMPRESSION: No acute findings Assessment & Plan Assessment & Plan (1) Chronic low back pain: Code(s): M54.50 - Low back pain, unspecified; G89.29 - Other chronic pain Category: Medical (2) Left shoulder pain: Code(s): M25.512 - Pain in left shoulder Category: Medical (3) Cervical spondylosis: Code(s): M47.812 - Spondylosis without myelopathy or radiculopathy, cervical region Category: Medical (4) Muscle spasms of neck: Code(s): M62.838 - Other muscle spasm Category: Medical (5) Osteoarthritis of left shoulder: Code(s): M19.012 - Primary osteoarthritis, left shoulder Category: Medical Plan The patient's chronic neck pain is being addressed following diagnostic C4, C5, C6 medial branch blocks which affirmed pain origin and justified the consideration of radiofrequency ablation or peripheral nerve stimulation for longer-term relief. Schedule Bilateral C4 Medial Branch Sprint PNS placement with local and fluoroscopy, starting with the left side. Expectations, risks and benefits were reviewed. Patient is aware she will be contacted to schedule this procedure. For her left shoulder pain with confirmed mild to moderate AC joint arthritis, a steroid injection with fluoroscopy guidance was recommended to reduce pain and improve function. Chronic back pain assessment will include diagnostic imaging to evaluate structural involvement due to her occupational injury history. All questions and concerns have been answered and patient agreed with the plan. Follow up after Sprint PNS placements/left shoulder injection and sooner as needed. Patient was informed and verbally consented to the use of an ambient scribe for clinic note documentation during this visit. Orders: Orders XR lumbar spine 4V min Today G89.29 - Other chronic pain, M54.50 - Low back pain, unspecified Coding Level of Care Code Est Pt Level 4 (13013) Complex EM visit Add On G2211 Diagnoses Chronic low back pain M54.50; G89.29 Left shoulder pain M25.512 Cervical spondylosis M47.812 Muscle spasms of neck M62.838 Osteoarthritis of left shoulder M19.012
[2024-09-11 08:43] VITALS: BP 123/58; PULSE 50; O2SAT 97; BMI 22.7
--- OUTSIDE RECORDS SUMMARY | 2024-09-11 08:58 | XMS_ITS | Encounter Summary ---
Author Organization [employer] Address [address] [facility] 7t [place] [address] Care Team Providers Care Computer Systems Security Analyst Name Role Phone Tierney Goncalves BOTTOM CAGER Primary Care Provider [phone] Reason for Visit * Reason Onset Date Comments case clarification 07/31/2023 Encounter Details Date Type Department Care Team ([facility] st Contact Info) Description 07/31/2023 Telephone [facility] [address] [place] [address] Camron Rios DDS [address] [place], [place] [phone] case clarification Social History Tobacco Use Types [...] it a metal clasp or clear clasp? [facility] contact lab for clarification documented in this encounter Plan of Treatment Upcoming Encounters Date Type Department Care Team (Late st Contact Info) Description 09/24/2024 2:00 PM EDT Office Visit [facility] [address] [place] [address] Tierney Goncalves FNP [address] [place] [address] documented as of this encounter Visit Diagnoses Not on filedocumented in this encounter Additional Health Concerns Assessment Noted Time PHQ-9 Depression Total Score: 0 05/16/19 24 3:22 PM EST documented as of this encounter Care Teams Computer Systems Security Analyst Relationship Specialty Start Date End Date Tierney Goncalves FNP [address] [place] [address] PCP - General Family Medicine 12/27/21 documented as of this encounter
--- OUTSIDE RECORDS SUMMARY | 2024-09-11 08:58 | XMS_ITS | Encounter Summary ---
Author Organization [employer] Address [address] [facility] [address] 7[address] [place] [address] Care Team Providers Care Tractor Mechanic Name Role Phone Tierney Goncalves LEAD TRAINER Primary Care Provider [phone] Encounter Details Date Type Department Care Team ([facility] st Contact Info) Description 09/07/2023 Telephone [facility] [address] [place], [place] [phone] Camron Rios, BITAS [address] [place], [place] [phone] Social History Tobacco Use Types Packs/Day Years [...] Miscellaneous Notes * Telephone Encounter - Kaye aBrreto - 09/07/2023 9:41 AM EDT Patient calling to make apt to picking machine operator helper parcles documented in this encounter Plan of Treatment Upcoming Encounters Date Type Department Care Team (Late st Contact Info) Description 09/24/2024 2:00 PM EDT Office Visit [facility] [address] [place] [address] Tierney Goncalves FNP [address] [place] [address] documented as of this encounter Visit Diagnoses Not on filedocumented in this encounter Additional Health Concerns Assessment Noted Time PHQ-9 Depression Total Score: 0 05/16/19 24 3:22 PM EST documented as of this encounter Care Teams Tractor Mechanic Relationship Specialty Start Date End Date Tierney Goncalves FNP [address] [place] [address] PCP - General Family Medicine 12/27/21 documented as of this encounter
--- OUTSIDE RECORDS SUMMARY | 2024-09-11 08:58 | XMS_ITS | Encounter Summary ---
Author Organization [employer] Address [address] [facility] [address] [place] [address] Care Team Providers Care Boatswains Mate Name Role Phone [facility] Primary Care Provider [phone] Encounter Details Date Type Department Care Team (Late st Contact Info) Description 08/05/2024 Orders Only [facility] [address] [place], [place] [phone] ProviderEvon MD Social History Tobacco Use Types [...] 09/24/2024 2:00 PM EDT Office Visit [facility] [address] [place] [address] IvannaTierney [facility] [address] [place] [address] documented as of this encounter Procedures Procedure [...] documented as of this encounter Care Teams Boatswains Mate Relationship Specialty Start Date End Date Ivanna Tierney [facility] [address] [place] [address] PCP - General Family Medicine 12/27/21 documented as of this encounter
--- OUTSIDE RECORDS SUMMARY | 2024-09-11 08:58 | XMS_ITS | Encounter Summary ---
Author Organization [employer] Address [address] [facility] 7t [place] [address] Care Team Providers Care Smoke Eater Name Role Phone [facility] Primary Care Provider [phone] Reason for Visit * Reason Onset Date Comments ER Follow-up 08/05/2024 Nurse Triage 08/05/2024 Encounter Details Date Type Department Care Team (Late st Contact Info) Description 08/05/2024 Telephone [facility] [address] [place] [address] [facility] [address] [place], [place] [phone] ER Follow-up; Nurse Triage Social History Tobacco [...] 08/05/2024 10:11 AM EDT Date: 08/04/24 Hospital: [facility] Seen for: elevated liver function Symptomatic Yes, can't really eat due to feeling nauseous Pt. States was told needs liver function testing within 48 hours. Called pt. She states she started feeling sick to her stomach x 2 days ago. Pt. Had vomiting ,diarrhea, and chills. Pt went to [facility] ED on 08/04/24. Provider in ED stated [...] pt. Chart but I do not see [facility] ED note in chart. Will send request for [facility] ED report from 08/04/24 to be put [...] For 08/06/24 at 930am with Harika Mensah MANAGER WATER WASTEWATER for [facility] ED FU and discussion to repeat labs [...] ED visit on : Date: 08/04/24 Hospital: [facility] Seen for: elevated liver function Symptomatic Yes, [...] Office Visit [facility] [address] [place] [address] Tierney Goncalves FNP [address] [place] [address] documented as of this encounter Visit Diagnoses Not on filedocumented in this encounter Additional Health Concerns Assessment Noted Time PHQ-9 Depression Total Score: 0 05/16/19 24 3:22 PM EST documented as of this encounter Care Teams Smoke Eater Relationship Specialty Start Date End Date Tierney Goncalves FNP [address] [place] [address] PCP - General Family Medicine 12/27/21 documented as of this encounter
--- OUTSIDE RECORDS SUMMARY | 2024-09-11 08:58 | XMS_ITS | Encounter Summary ---
Author Organization [employer] Address [address] [place] [address] Care Team Providers Care Ela Teacher Name Role Phone [facility] Primary Care Provider Encounter Details Date Type Department Care Team (Late st Contact Info) Description 08/08/2023 Orders Only [facility] [address] [place] [address] ProviderEvon MD Social History Tobacco Use Types [...] 09/24/2024 2:00 PM EDT Office Visit [facility] [address] [place] [address] Tierney Goncalves FNP [address] [place] [address] documented as of this encounter Procedures Procedure [...] documented as of this encounter Care Teams Ela Teacher Relationship Specialty Start Date End Date Tierney Goncalves FNP [address] [place] [address] PCP - General Family Medicine 12/27/21 documented as of this encounter
--- OUTSIDE RECORDS SUMMARY | 2024-09-11 08:58 | XMS_ITS | Encounter Summary ---
Author Organization [employer] Address [address] [facility] [address] [facility] [address] [place] [address] Care Team Providers Care Visual Manager Name Role Phone [facility] Provider Encounter Details Date Type Department Care Team (Late st Contact Info) Description 11/13/2023 Orders Only [facility] MED[facility] [address] [place] [address] ProviderEvon MD Social History Tobacco Use Types [...] Description 09/24/2024 2:00 PM EDT Office Visit [facility] MED[facility] [address] [place] [address] Tierney Goncalves FNP [address] [place] [address] documented as of this encounter Procedures Procedure [...] documented as of this encounter Care Teams Visual Manager Relationship Specialty Start Date End Date Tierney Goncalves FNP [address] [place] [address] PCP - General Family Medicine 12/27/21 documented as of this encounter
--- OUTSIDE RECORDS SUMMARY | 2024-09-11 08:58 | XMS_ITS | Encounter Summary ---
Author Organization [employer] Address [address] [facility] 7t [place] [address] Care Team Providers Care Property Manager Name Role Phone [employer] Primary Care Provider Reason for Visit * Reason Comments Med Refill Encounter Details Date Type Department Care Team ([facility] st Contact Info) Description 08/19/2023 Refill [facility] [address] [place], [place] [phone] [facility] [address] [place] [address] Fibromyalgia Social History Tobacco Use Types Packs/Day [...] Description 09/24/2024 2:00 PM EDT Office Visit [facility] [address] [place] [address] Tierney Goncalvse FNP [address] [place] [address] documented as of this encounter Visit Diagnoses Diagnosis Fibromyalgia Unspecified myalgia and myositis documented in this encounter Additional Health Concerns Assessment Noted Time PHQ-9 Depression Total Score: 0 05/16/19 24 3:22 PM EST documented as of this encounter Care Teams Property Manager Relationship Specialty Start Date End Date Tierney Goncalves FNP [address] [place] [address] PCP - General Family Medicine 12/27/21 documented as of this encounter
--- OUTSIDE RECORDS SUMMARY | 2024-09-11 08:59 | XMS_ITS | Encounter Summary ---
Author Organization [employer] Address [address] [facility] 7t [place] [address] Care Team Providers Care Sociology Instructor Name Role Phone [facility] Primary Care Provider [phone] Encounter Details Date Type Department Care Team ([facility] st Contact Info) Description 05/16/2022 Telephone [facility] [address] [place], [place] [phone] [facility] [address] [place], [place] [phone] Social History Tobacco Use Types Packs/Day Years [...] PM EST documented as of this encounter Functional Status * Over the past 2 weeks, how often have you been bothered by any of the following problems? Question Answer Date of Assessment Author Little interest or pleasure in doing things Not at all 05/18/2022 2:28 PM Adela Joe [place] Feeling down, depressed, or hopeless Not at all 05/18/2022 2:28 PM Adela Joe [place] Patient Health Questionnaire-2 Score 0 05/18/2022 2:28 PM Adela Joe [place] * Over the past 2 weeks, how often have you been bothered by any of the following problems? Question Answer Date of Assessment Author Trouble falling or staying asleep, or sleeping too much Not at all 05/18/2022 2:28 PM Adela Chaidez [place] Feeling tired or having little energy Not at all 05/18/2022 2:28 PM Adela Joe [place] Poor appetite or overeating Not at all 05/18/2022 2: 28 PM Adela Joe [place] Feeling bad about yourself - or that you are a failure or have let yourself or your family down Not at all 05/18/2022 2:28 PM Adela Joe [place] Trouble concentrating on things, such as reading the newspaper or watching television Not at all 05/18/2022 2:28 PM Adela Joe [place] Moving or speaking so slowly that other people could have noticed? Or the opposite - being so fidgety or restless that you have been moving around a lot more than usual. Not at all 05/18/2022 2:28 PM Adela Schmitt MA Thoughts that you would be better off or hurting yourself in some way Not at all 05/18/2022 2:28 PM Adela Joe MA Patient Health Questionnaire-9 Score 0 05/18/2022 2:28 PM Adela Joe [place] documented as of this encounter Plan of Treatment Upcoming Encounters Date Type Department Care Team (Late st Contact Info) Description 09/24/2024 2:00 PM EDT Office Visit [facility] [address] [place] [address] ChesterTierney FNP [address] [place] [address] documented as of this encounter Visit Diagnoses Not on filedocumented in this encounter Care Teams Sociology Instructor Relationship Specialty Start Date End Date Tierney Goncalves FNP [address] [place] [address] [place] [address] PCP - General Family Medicine 12/27/21 documented as of this encounter
--- OUTSIDE RECORDS SUMMARY | 2024-09-11 08:59 | XMS_ITS | Encounter Summary ---
Author Organization [employer] Address [address] [facility] 7t [place] [address] Care Team Providers Care Artificial Breeding Technician Name Role Phone [facility] Primary Care Provider [phone] Reason for Visit * Reason Comments Med Refill Encounter Details Date Type Department Care Team ([facility] st Contact Info) Description 03/13/2023 Refill [facility] [address] [place], [place] [phone] [facility] 230 [place] [address] Social History Tobacco Use Types Packs/Day Years [...] 2:00 PM EDT Office Visit [facility] MED[facility]INE [address] [place] [address] Tierney Goncalves FNP [address] [place] [address] documented as of this encounter Visit Diagnoses Not on filedocumented in this encounter Additional Health Concerns Assessment Noted Time PHQ-9 Depression Total Score: 0 12/13/19 23 2:06 PM EDT documented as of this encounter Care Teams Artificial Breeding Technician Relationship Specialty Start Date End Date Tierney Goncalves FNP [address] [place] [address] PCP - General Family Medicine 12/27/21 documented as of this encounter
--- OUTSIDE RECORDS SUMMARY | 2024-09-11 08:59 | XMS_ITS | Clinical Summary ---
Author Organization [employer] Address [address] [place] [address] Care Team Providers Care Perishable Fruit Inspector Name Role Phone [facility] Primary Care Provider [phone] Allergies No known active allergies Medications omeprazole [...] Negative EMB 09/01/22 ? ? Followed by [facility] Mixed hyperlipidemia 05/26/2022 Overview (05/26/2022): ?? 03/2022 ASCVD 2.8% ?? Diet controlled Healthcare maintenance 04/02/2022 Overview (08/15/2023): Mammo: 02/2023 bi-rads 2 Pap: 05/[address] [facility] TO[facility] C[facility] PINION, NIL HPV +'colpo PADMINI 1, repeat co-testing due 09/2023 C-scope: 2017, has upcoming appointment BMD: Routine age 67 HCV Screen: Neg 2016 HIV Screen: Neg 2015 Immunizations: declines COVID booster today. Otherwise UTD Screening Labs: A1c-4.8, 2020 Assessment & Plan (04/02/2022 1:22 PM EST): Mammo: 02/2022 bi-rads 2, repeat 02/2023 Pap: 05/[address] [facility] TOOTH CUTTER PINION, NIL HPV +, pt does not now [...] dysphagia and early satiety - Followed by [facility] GI with previously benign EGD w/ esophageal spasm, negative gastric emptying study, neg. H.pylori biopsy Osteoarthritis of facet joint of lumbar spine Overview (05/18/2022): - Hx of sacroilitis - Previously seen by [facility] ortho and pain mngmt; has received numerous steroid injections with minimal sx improvement. Has tried PT for various concerns without improvement. - Is not currently followed by ortho or pain mngmt ?? Non-toxic multinodular goiter 07/20/2017 Overview (05/18/2022): Benign multi-nodular goiter followed by [facility] endo. Per lats visit note 08/2021, patient to reconsider thyroidectomy if sx of dysphagia worsen; has follow up in 6 months - Per chart review pt was referred to [place] for possible thyroidectomy however pt does not have transportation. Insurance barriers limit more local access. -FNA of left mid pole nodule on 04/20/16 consistent with benign follicular nodule. 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 heme/onc negative workup for underlying cause. Per visit note plan to monitor q. 6 months and consider biopsy if WBC count < 2 or development of B sx Diffuse spasm of esophagus 05/17/2016 Fibromyalgia 04/28/2016 Overview (01/02/2023): ?? Duloxetine 40mg daily ?? Amitriptyline 10mg at bedtime ?? Chronic back pain, shoulder pain ?? Hx of sacroilitis ?? Previously seen by [facility] ortho and pain mngmt; has received numerous [...] Description 08/06/2024 9:30 AM EDT Office Visit [facility] MEDIC[facility] [address] [place] [address] Jannet Mensah NP Elevated liver enzymes (Primary Dx); Low serum potassium 08/06/2024 Travel 08/05/2024 Orders Only [facility] MED & PEDS [address] [place] [address] ProviderEvon MD 08/05/2024 Telephone [facility] MEDIC[facility] [address] [place] [address] [facility] ER Follow-up; Nurse Triage 08/04/2024 Orders Only GENERIC EXTERNAL DATA DEPARTMENT Provider, Generic External Data 07/18/2024 Orders Only [facility] External Provider, [facility] 07/09/2024 Refill [facility] [address] [place] [address] [facility] Fibromyalgia from Last 3 Months Immunizations Immunization Administration Dates Next Due Influenza injectable quadriv [...] Upcoming Encounters Date Type Department Care Team ([facility] st Contact Info) Description 09/24/2024 2:00 PM EDT Office Visit [facility] MEDICINE [address] [place] [address] Hawk Run, Tierney, OVERLOCK OPERATOR [address] [place] [address] Health Maintenance Due Date Last Done Comments [...] patient's age to complete this topic Meningococcal B Vaccine Aged Out No l onger eligible based on patient's age to complete [...] included. Sodium 140 135 - 145 mmol/L [facility] Potassium 3.5 3.3 - 5.1 mmol/L [facility] Chloride 109(H) 96 - 108 mmol/L [facility] Carbon Dioxide 26 22 - 29 mmol/L [facility] Anion Gap 9(L) 12 - 20 [facility] Urea Nitrogen (BUN) 12 9 - 16 mg/dL [facility] Creatinine, Serum 0.75 0.5 - 1.4 mg/dL [facility] Estimated Glomerular Filt Rate >60 [facility] Comment:Chronic Kidney Disea se: Estimated GFR < 60 mL/min/1.09e3Sorxwh Kidney Disease: Estimated GFR < 15 mL/min/1.73m2 Glucose 84 60 - 115 mg/dL [facility] Calcium 9.0 8.4 - 10.2 mg/dL [facility] Bilirubin, Total 0.4 0.0 - 1.0 mg/dL [facility] Aspartate Amino Transferase 165(H) 5 - 31 U/L [facility] Alanine Aminotransferase 464(H) 0 - 31 U/L [facility] Total Protein 7.1 6.5 - 8.0 g/dL [facility] Albumin Level 4.0 3.5 - 5.0 g/dL [facility] Alkaline Phosphatase 225(H) 39 - 117 U/L [facility] Blood Venous blood specimen / Unknown 08/06/2024 10:13 AM EDT 08/06/2024 11:45 AM EDT Jannet Mensah [employer]IMMER LAB BLOOD ORDERABLES Final Resu lt [facility] [address] [place] [address] [phone] * Lactic Acid (08/04/2024 10:03 AM EDT) Lactic Acid 0.9 0.5 - 2.0 mmol/L [facility] 08/04/2024 10:0 3 AM EDT 08/04/2024 10:07 AM EDT Generic External Data Provider LAB BLOOD ORDERAB LES Final Result Performing Organization Address [facility] de Phone Number [facility] [address] [place] [phone] * Blood Culture (First) (08/04/2024 10:02 AM EDT) Blood Venous blood specimen / Unknown 08/04/2024 10:02 AM EDT 08/04/2024 10:07 AM EDT Comment:Blood Narrative [facility] - 08/09/2024 12:07 PM EDT Blood Culture (First) No growth after 5 days. Specimen Source: Blood Generic External Data Provider LAB MICROBIOLOGY - GENERAL ORDERABLES Final Result Performing Organization Address [facility] Phone Number [facility] [address] [place] [phone] * Blood Culture (Second) (08/04/2024 10:02 AM EDT) Blood Venous blood specimen / Unknown 08/04/2024 10:02 AM EDT 08/04/2024 10:07 AM EDT Comment:Blood Narrative [facility] - 08/09/2024 12:07 PM EDT Blood Culture (Second) No growth after 5 days. Specimen Source: Blood Generic External Data Provider LAB MICROBIOLOGY - GENERAL ORDERABLES Final Result Performing Organization Address [facility] de Phone Number [facility] [address] [place] [phone] * SARS-CoV-2 RNA, Influenza A/B, and RSV RNA, Ql NAAT (08/04/2024 9:22 AM EDT) Influenza A PCR NEGATIVE Negative [facility] Influenza B PCR NEGATIVE Negative [facility] Resp Syncy Virus RNA Qual PCR NEGATIVE Negative [facility] SARS COV2 PCR NEGATIVE Negative [facility] Comment:All test results mus t [...] use by authorized laboratories.Testing performed on the [employer] GeneXpert utilizingreal-time RT-PCR.All SARS CoV2 and positive influenza A/B results arereported to [facility]. 08/04/2024 9:22 AM EDT 08/04/2024 9:26 AM EDT us Generic External Data Provider LAB MICROBIOLOGY - GENERAL ORDERABLES Final Result [facility] [address] [place] [phone] * CT Abdomen Pelvis w/ Contrast (08/04/2024 9:04 AM EDT) Anatomical Region Laterality Modality Body, Pelvis, Abdomen Computed T omography 08/04/2024 9:04 AM EDT Narrative 08/04/2024 9:39 AM EDT ? [facility] ?[address] ?[place] [address] ? CT Scan Report ? Signed ? Patient: Flynn,Alba Y ?MR#: [id number] ? : 1960 ?Acct:[id number] ? Age/Sex: 64 / F ?ADM Date: 08/04/ ? Loc: HO.ED ? Attending Dr: ? Ordering Physician: Angelika Skaggs DO ?? Date of Service: 08/04/24 ?? Procedure(s): CT abdomen pelvis w IV con ?? Accession Number(s): [id number] ? cc: Angelika Skaggs DO; Tierney Goncalves OVERLOCK OPERATOR ? Report Number: ?? [id number]: Total DLP = ??339.00 mGy-cm ?? EXAMINATION: [...] ? DD/ 3 ? TD/TT: 08/04/24919 ? Bonding And Composite Fabricator: ? Procedure Note Rico Nelson - 08/04/[address] [address] [address] Scan Report Signed Patient: Adela Flynn YMR#: [id number] : 1960cct:[id number] Age/Sex: 64 / FADM Date: 08/04/24 Loc: HO.ED Attending Dr: Ordering Physician: Angelika Skaggs DO Date of Service: 08/04/24 Procedure(s): CT abdomen pelvis w IV con Accession Number(s): [id number] cc: Angelika Skaggs DO; [facility] Report Number: [id number]: Total DLP = 339.00 mGy-cm EXAMINATION: CT [...] in OV> 08/04/24934 DD/ 3 TD/TT: 08/04/24919 Bonding And Composite Fabricator: [facility] External Provider IMG CT PROCEDURES Final Result * (ABNORMAL) Urinalysis, Complete, with Reflex to Culture (08/04/2024 8:24 AM EDT) Color Urine Yellow [facility] Appearance Urine Clear [facility] PH 6.0 5.0 - 9.0 [facility] Glucose Urine UA Negative Negative mg/dL [facility] Urine Blood Moderate (2+)(A) Negative [facility] Specific [place] - Urine 1.015 1.005 - 1.025 [facility] Urine Protein Negative Neg-Trace mg/dL [facility] Urine Ketones 15 Negative mg/dL [facility] Nitrite Urine Negative Negative [facility] Leukocyte Esterase Urine Negative Negative [facility] RBC Urine 11-20(A) 0 - 2 /HPF [facility] Urine WBC 0-5 0 - 5 /HPF [facility] Urine Squamous Epithelial Cell 0-2 0 - 2 /HPF [facility] Urine Bacteria None Seen None Seen [facility] Hyaline Casts, Urine 0-2 0 - 2 /LPF [facility] 08/04/2024 8:24 AM EDT 08/04/2024 8:27 AM EDT Narrative [facility] - 08/04/2024 8:37 AM EDT [id number], [employer] us Generic External Data Provider LAB URINE ORDERAB LES Final Result [facility] [address] [place] [phone] * US Abdomen Limited (08/04/2024 8:08 AM EDT) Anatomical Region Laterality Modality Abdomen Ultrasound 08/04/2024 8:08 AM EDT Narrative 08/04/2024 9:05 AM EDT ? [facility] ?[address] ?[place] [address] ? Ultrasound Report ? Signed ? Patient: Flynn,Alba Y ?MR#: [id number] ? : 1960 ?Acct:[id number] ? Age/Sex: 64 / F ?ADM Date: 08/04/24 ? Loc: HO.ED ? Attending Dr: ? Ordering Physician: Angelika Skaggs DO ?? Date of Service: 08/04/24 ?? Procedure(s): US abdomen limited ?? Accession Number(s): [id number] ? cc: Angelika Skaggs DO; Tierney Goncalves OVERLOCK OPERATOR ? EXAMINATION: ??US ABDOMEN LIMITED ? HISTORY: [...] DD/ 0808 ? TD/TT: 08/04/24 0815 ? Bonding And Composite Fabricator: ? Procedure Note Rico Nelson - 08/04/2024 [place] [address] Ultrasound Report Signed Patient: Adela Fylnn YMR#: [id number] : 1960cct:[id number] Age/Sex: 64 / FADM Date: 08/04/24 Loc: HO.ED Attending Dr: Ordering Physician: Angelika Skaggs DO Date of Service: 08/04/24 Procedure(s): US abdomen limited Accession Number(s): [id number] cc: Angelika Skaggs DO; Tierney Goncalves [facility] EXAMINATION: US ABDOMEN LIMITED HISTORY: abnormal LFTs, [...] 08/04/24 0902 DD/ 0808 TD/TT: 08/04/24 0815 Bonding And Composite Fabricator: [facility] External Provider IMG US PROCEDURES Final Result * Hepatitis Panel, General (08/04/2024 7:29 AM EDT) Hepatitis A IgM Nonreactive Nonreactive [facility] Comment:IgM antibodies to SERRANO V not detected; does not exclude earlyacute or recovered HAV infection. ~Hepatitis B Surface Antibody REACTIVE Nonreactive [facility] Comment:REACTIVE: > 11.99 mI U/mL Hepatitis B Core Antibody Nonreactive Nonreactive [facility] Hepatitis C Antibody Nonreactive Nonreactive [facility] Comment:Antibodies to HCV no t detected; does not exclude early acuteHCV infection. Hepatitis B Surface Ag Negative Negative [facility] 08/04/2024 7:29 AM EDT 08/04/2024 7:34 AM EDT us Generic External Data Provider LAB BLOOD ORDERAB LES Final Result Performing Organization Address City/[facility]/ZIP Co de Phone Number [facility] [address] [place] [phone] * Acetaminophen level (08/04/2024 7:29 AM EDT) Pathologist [facility] Acetaminophen LAB <3 <30 mcg/mL [facility] 08/04/2024 7:29 AM EDT 08/04/2024 7:34 AM EDT Generic External Data Provider LAB BLOOD ORDERAB LES Final Result Performing Organization Address [facility] Co de Phone Number [facility] [address] [place] [phone] * (ABNORMAL) CBC auto differential (08/04/2024 5:48 AM EDT) [facility] White Blood Count 3.8(L) 4.8 - 10.8 X10*3/uL [facility] Red Blood Count 4.08(L) 4.20 - 5.50 X10*6/uL [facility] Hemoglobin 12.3 12.0 - 16.0 g/dl [facility] Hematocrit 36.6(L) 37.0 - 47.0 % [facility] Mean Corpuscular Volume 89.7 80.0 - 98.0 fL [facility] Mean Corpuscular Hemoglobin 30.1 27.0 - 33.0 pg [facility] Mean Corpuscular HGB Conc 33.6 31.0 - 35.0 g/dl [facility] Red Cell Distribution Width 12.5 11.0 - 16.0 % [facility] Platelet Count 232 160 - 400 X10*3/uL [facility] Mean Platelet Volume 9.4 9.4 - 12.3 fL [facility] Neutrophils Percent Auto 89.6(H) 45 - 73 % [facility] Imm Gran Pct Auto 0.3 0.0 - 0.4 % [facility] Lymphocytes Percent Auto 4.0(L) 20 - 40 % [facility] Monocytes Percent Auto 4.0 2 - 11 % [facility] Eosinophils Percent Auto 1.8 0 - 4 % [facility] Basophils Percent Auto 0.3 0 - 2 % [facility] NRBC Pct Auto 0.0 0.0 - 0.2 /100WBC [facility] Neutrophils Absolute Auto 3.4 2.0 - 8.3 x10*3/uL [facility] Imm Gran Abs Auto 0.01 0.00 - 0.03 X10*3/uL [facility] Lymphocytes Absolute Auto 0.2(L) 1.2 - 4.9 X10*3/uL [facility] Monocytes Absolute Auto 0.2 0.1 - 1.2 X10*3/uL [facility] Eosinophils Absolute Auto 0.1 0.0 - 0.4 X10*3/uL [facility] Basophils Absolute Auto 0.0 0.0 - 0.2 X10*3/uL [facility] NRBC Abs Auto 0.000 0.0 - 0.012 X10*3/uL [facility] 08/04/2024 5:48 AM EDT 08/04/2024 5:51 AM EDT us Generic External Data Provider LAB BLOOD ORDERAB LES Final Result Performing Organization Address City/[facility]/ZIP Co de Phone Number [facility] [address] [place] [phone] * Lipase (08/04/2024 5:48 AM EDT) Lipase 9 8 - 78 U/L [facility] 08/04/2024 5:48 AM EDT 08/04/2024 5:51 AM EDT us Generic External Data Provider LAB BLOOD ORDERAB LES Final Result Performing Organization Address City/[facility] Co de Phone Number [facility] [address] [place] [phone] * XR Wrist 3+ Views Left (07/21/2024 11:32 AM EDT) Anatomical Region Laterality Modality Upper Extremities, Wrist Left Radiogr aphic Imaging 07/21/2024 11:3 2 AM EDT Narrative 07/21/2024 11:34 AM EDT ? [facility] ? [address] ?[place] ?XRay Report ? Signed ? Patient: Flynn,Alba Y ?MR#: [id number] ? : 1960 ?Acct:[id number] ? Age/Sex: 64 / F ?ADM Date: 07/18/24 ? Loc: HO.HOSX ? Attending Dr: Carroll DAVALOS ? Ordering Physician: Carroll Bowser ?? Date of Service: 07/18/24 ?? Procedure(s): XR wrist LT min 3V ?? Accession Number(s): [id number] ? cc: Carroll Bowser; Tierney Goncalves [facility] ? CLINICAL HISTORY: M25.532 - Pain in [...] DD/ 1132 ? TD/TT: 07/21/24 1132 ? Bonding And Composite Fabricator: ? Procedure Note Omar, Rico - 07/21/2024 [facility] [address] [place] [address] [address] [place] [address] XRay Report Signed Patient: Adela Flynn YMR#: [id number] : 2Acct:[id number] Age/Sex: 64 / FADM Date: 07/18/24 [facility]: Carroll DAVALOS Ordering Physician: Carroll Bowser Date of Service: 07/18/24 Procedure(s): XR wrist LT min 3V Accession Number(s): [id number] cc: Carroll Bowser; [facility] CLINICAL HISTORY: M25.532 - Pain in [...] 07/21/24 1133 DD/ 1132 TD/TT: 07/21/24 1132 Bonding And Composite Fabricator: [facility] External Provider IMG XR PROCEDURES Final Result * XR Wrist 3+ Views Right (07/21/2024 11:31 AM EDT) Anatomical Region Laterality Modality Upper Extremities, Wrist Right Radiogr aphic Imaging 07/21/2024 11:3 1 AM EDT Narrative 07/21/2024 11:32 AM EDT ? [facility] ? [address] ?[place] [address] ?XRay Report ? Signed ? Patient: Flynn,Alba Y ?MR#: [id number] ? : 1960 ?Acct:[id number] ? Age/Sex: 64 / F ?ADM Date: 07/18/24 ? Loc: HO.HOSX ? Attending Dr: Carroll DAVALOS ? Ordering Physician: Carroll Bowser ?? Date of Service: 07/18/24 ?? Procedure(s): XR wrist RT min 3V ?? Accession Number(s): [id number] ? cc: Carroll Bowser; Tierney Goncalves OVERLOCK OPERATOR ? CLINICAL HISTORY: M25.531 - Pain in [...] DD/ 113 ? TD/TT: 07/21/24 1131 ? Bonding And Composite Fabricator: ? Procedure Note Donjanaecalvinter, Image - 07/21/2024 [facility] [address] [place] [address] Drive [address] [place] [address] XRay Report Signed Patient: Adela Flynn YMR#: [id number] : 2Acct:[id number] Age/Sex: 64 / FADM Date: 07/18/24 Loc: JAZMIN Attending Dr: Carroll DAVALOS Ordering Physician: Carroll Bowser Date of Service: 07/18/24 Procedure(s): XR wrist RT min 3V Accession Number(s): [id number] cc: Carroll Bowser; [facility] CLINICAL HISTORY: M25.531 - Pain in [...] 07/21/24 1131 DD/ 1131 TD/TT: 07/21/24 1131 Bonding And Composite Fabricator: [facility] External Provider IMG XR PROCEDURES Final Result * XR Shoulder 2+ Views Left (06/14/2024 5:38 AM EST) Anatomical Region Laterality Modality Upper Extremities, Shoulder Left Radi ographic Imaging 06/14/2024 5:38 AM EST Narrative 06/14/2024 5:39 AM EST ? [facility] ?[address] ?[place] [address] ?XRay Report ? Signed ? Patient: Flynn,Alba Y ?MR#: [id number] ? : 1960 ?Acct:[id number] ? Age/Sex: 64 / F ?ADM Date: 06/13/24 ? Loc: HO.XRAY ? Attending Dr: [place]ika Liz OVERLOCK OPERATOR ? Ordering Physician: Kanika Liz ?? Date of Service: 06/13/24 ?? Procedure(s): XR shoulder LT min 2V ?? Accession Number(s): [id number] ? cc: [place] OVERLOCK OPERATOR; Tierney Goncalves OVERLOCK OPERATOR ? CLINICAL HISTORY: M25.512 - Pain in left shoulder ? 4 view left shoulder ? Comparison: CR/UT/SR - XR SHOULDER LT MIN 2V - 11/01/21 15:06 EDT ? Findings: ?? No fractures or dislocations. ?? Hgkr-fr-dpmesivp osteoarthritic changes of the AC joint. ?? No erosions. No radiopaque foreign body. ? IMPRESSION: ?? 1. No acute findings ? This document has been electronically signed by: Diego Fan MD on ?? 06/14/2024 05:38:17 ? Dictated By: ?Diego Fan MD ? Signed By: ?<Electronically signed by Diego Fan MD in OV> ?06/14/24537 ? DD/ 7 ? TD/TT: 06/14/24537 ? Bonding And Composite Fabricator: ? Procedure Note Omar, Image - 06/14/2024 [place] [address] XRay Report Signed Patient: Adela Flynn YMR#: [id number] : 2Acct:[id number] Age/Sex: 64 / FADM Date: 06/13/24 Loc: RAUL Attending Dr: Kanika SOL Ordering Physician: Kanika Liz Date of Service: 06/13/24 Procedure(s): XR shoulder LT min 2V Accession Number(s): [id number] cc: [place] Liz; [facility] OVERLOCK OPERATOR CLINICAL HISTORY: M25.512 - Pain in left shoulder 4 view left shoulder Comparison: CR/UT/SR - XR SHOULDER LT MIN 2V - 11/01/21 15:06 EDT Findings: No fractures or dislocations. Xmhn-cz-shvlwmcp osteoarthritic changes of the AC joint. No erosions. No radiopaque foreign body. IMPRESSION: 1. No acute findings This document has been electronically signed by: Diego Fan MD on 06/14/2024 05:38:17 Dictated By: Diego Fan MD Signed By: <Electronically signed by Diego Fan MD in OV> 06/14/24 0538 DD/ TD/TT: 06/14/2438 Bonding And Composite Fabricator: [facility] External Provider IMG XR PROCEDURES Edited Result - Final * BI Mammogram Screening Tomosynthesis Bilateral (03/17/2024 2:15 PM EST) Anatomical Region Laterality Modality Breast Bilateral Mammography 03/17/2024 2:15 PM EST Narrative 03/25/2024 3:23 PM EST ? [facility] ? [address] ?[place] [address] ? Mammography Report ? Signed ? Patient: Flynn,Adela Y ?MR#: [id number] ? : 1960 ?Acct:[id number] ? Age/Sex: 64 / F ?ADM Date: 11/18/24 ? Loc: HO.MAMMO ? Attending Dr: Tierney Ivanna OVERLOCK OPERATOR ? Ordering Physician: [place],Tierney OVERLOCK OPERATOR ?Results: 2Beni ?? gn Findings ? Date of Service: 11/18/24 ?Follow Up: 1 Year From Orig ?? inal Mammogram ? Procedure(s): MM tomosynthesis screening BI ?? Accession Number(s): [id number] ? cc: Ivanna,Tierney OVERLOCK OPERATOR ? EXAMINATION: ?? MM SCREENING DIGITAL BREAST [...] DD/ 1415 ? TD/TT: 03/17/24 1430 ? Bonding And Composite Fabricator: ? Procedure Note Omar, Image - 03/25/2024 [facility] [address] [place] [address] Mammography Report Signed Patient: Adela Flynn YMR#: [id number] : 2Acct:[id number] Age/Sex: 64 / FADM Date: 03/17/24 Loc: HO.MAMMO Attending Dr: Tierney Goncalves OVERLOCK OPERATOR Ordering Physician: Tierney Goncalves FNPResults: 2Beni gn Findings Date of Service: 03/17/24Follow Up: 1 Year From Orig inal Mammogram Procedure(s): MM tomosynthesis screening BI Accession Number(s): [id number] cc: IvannaTierney wright OVERLOCK OPERATOR EXAMINATION: MM SCREENING DIGITAL BREAST TOMOSYNTHESIS, BILATERAL [...] by: Emma Cerda DO 03/25/2024 03:20 PM [facility] Dictated By: Emma Cerda DO Signed By: <Electronically signed by Emma Cerda DO in OV> 03/25/24 1520 DD/ 1415 TD/TT: 03/17/24 1430 Bonding And Composite Fabricator: [facility] OVERLOCK OPERATOR IMG BI PROCEDURES Final Resul t * [...] Most Recently Relevant to Health Maintenance Insurance [facility] , [address] [place] [address] DENTAL - HSN PARTIAL (MEDICAID) Care Teams Perishable Fruit Inspector Relationship Specialty Start Date End Date Tierney Goncalves FNP [address] [place] [phone] PCP - General Family Medicine 12/27/21
--- OUTSIDE RECORDS SUMMARY | 2024-09-11 08:59 | XMS_ITS | Encounter Summary ---
Author Organization [employer] Address [address] [place] [address] 7 [place] [address] Care Team Providers Care Multiple Drill Operator Name Role Phone [facility] Primary Care Provider [phone] Reason for Visit * Reason Comments Med Refill Encounter Details Date Type Department Care Team ([facility] Contact Info) Description 07/21/2022 Refill [facility] [address] [place] [address] [facility] [address] [place] [address] Joint pain in both hands Social History [...] Upcoming Encounters Date Type Department Care Team ([facility] Contact Info) Description 09/24/2024 2:00 PM EDT Office Visit [facility] [address] [place] [address] Tierney Goncalves FNP [address] [place] [address] documented as of this encounter Visit Diagnoses Diagnosis Joint pain in both hands documented in this encounter Additional Health Concerns Assessment Noted Time PHQ-9 Depression Total Score: 0 05/18/19 23 2:28 PM EST documented as of this encounter Care Teams Multiple Drill Operator Relationship Specialty Start Date End Date Tierney Goncalves FNP [address] [place] [address] PCP - General Family Medicine 12/27/21 documented as of this encounter
--- OUTSIDE RECORDS SUMMARY | 2024-09-11 08:59 | XMS_ITS | Encounter Summary ---
Author Organization [employer] Address [address] [facility] 7t [place] [address] Care Team Providers Care Tribal Delegate Name Role Phone [facility] Primary Care Provider [phone] Reason for Visit * Reason Onset Date Comments Prior Authorization 05/16/2024 Encounter Details Date Type Department Care Team ([facility] st Contact Info) Description 05/16/2024 Telephone [facility] [address] [place] [address] [facility] [address] [place] [address] Prior Authorization Social History Tobacco Use Types [...] Description 09/24/2024 2:00 PM EDT Office Visit [facility] [address] [place] [address] Tierney Goncalves FNP [address] [place] [address] documented as of this encounter Visit Diagnoses Not on filedocumented in this encounter Additional Health Concerns Assessment Noted Time PHQ-9 Depression Total Score: 0 05/16/19 24 3:22 PM EST documented as of this encounter Care Teams Tribal Delegate Relationship Specialty Start Date End Date Tierney Goncalves FNP [address] [place] [address] PCP - General Family Medicine 12/27/21 documented as of this encounter
--- OUTSIDE RECORDS SUMMARY | 2024-09-11 08:59 | XMS_ITS | Encounter Summary ---
Author Organization [employer] Address [address] [facility] 7t [place] [address] Care Team Providers Care Spikemaking Supervisor Name Role Phone [facility] Primary Care Provider [phone] Reason for Visit * Reason Onset Date Comments Nurse Triage 06/05/2024 Encounter Details Date Type Department Care Team (Late st Contact Info) Description 06/05/2024 Telephone [facility] [address] [place] [address] [facility] [address] [place] [address] Nurse Triage Social History Tobacco Use Types [...] Description 09/24/2024 2:00 PM EDT Office Visit [facility] [address] [place] [address] Tierney Goncalves FNP [address] [place] [address] documented as of this encounter Visit Diagnoses Not on filedocumented in this encounter Additional Health Concerns Assessment Noted Time PHQ-9 Depression Total Score: 0 05/16/19 24 3:22 PM EST documented as of this encounter Care Teams Spikemaking Supervisor Relationship Specialty Start Date End Date Tierney Goncalves FNP [address] [place] [address] PCP - General Family Medicine 12/27/21 documented as of this encounter
== END 2024-09-11 09:11 | disposition home or self-care (01) ==
LOC: HO.PMC 08:38
PROVIDERS: PCP Registered Nurse; Visit Provider Nurse Practitioner Family
DX: M54.50 Low back pain, unspecified (principal); G89.29 Other chronic pain; M25.512 Pain in left shoulder; M47.812 Spondylosis without myelopathy or radiculopathy, cervical region; M62.838 Other muscle spasm; M19.012 Primary osteoarthritis, left shoulder
CPT/HCPCS: 99214

== ENCOUNTER 2024-09-12 11:44 | Day surgery (SDC) | payer OTHER, SELFPAY ==
--- OUTSIDE RECORDS SUMMARY | 2024-09-04 13:50 | XMS_ITS | Encounter Summary ---
Author Organization [employer] Address [address] [facility] 7t [place] [address] Care Team Providers Care Chaplain Resident Name Role Phone Tierney Goncalves POLICE CLERK Primary Care Provider [phone] Reason for Visit * Reason Onset Date Comments case clarification 07/31/2023 Encounter Details Date Type Department Care Team ([facility] st Contact Info) Description 07/31/2023 Telephone [facility] ADULT DENTAL 230 [place] [address] Camron Rios DDS [address] [place], [place] [phone] case clarification Social History Tobacco Use Types [...] a metal clasp or clear clasp? [facility] contact lab for clarification documented in this encounter Plan of Treatment Upcoming Encounters Date Type Department Care Team (Late st Contact Info) Description 09/24/2024 2:00 PM EDT Office Visit [facility] [address] [place] [address] Tierney Goncalves FNP 230 [place] [address] documented as of this encounter Visit Diagnoses Not on filedocumented in this encounter Additional Health Concerns Assessment Noted Time PHQ-9 Depression Total Score: 0 05/16/19 24 3:22 PM EST documented as of this encounter Care Teams Chaplain Resident Relationship Specialty Start Date End Date Tierney Goncalves FNP 230 [place] [address] PCP - General Family Medicine 12/27/21 documented as of this encounter
--- OUTSIDE RECORDS SUMMARY | 2024-09-04 13:50 | XMS_ITS | Encounter Summary ---
Author Organization [employer] Address [address] [facility] 7t [place] [address] Care Team Providers Care Predictive Maintenance Technician Name Role Phone [facility] Primary Care Provider [phone] Reason for Visit * Reason Comments Med Refill Encounter Details Date Type Department Care Team ([facility] st Contact Info) Description 08/19/2023 Refill [facility] MEDICINE 230 [place], [place] [phone] [facility] 230 [place] [address] Fibromyalgia Social History Tobacco Use Types Packs/Day [...] 2:00 PM EDT Office Visit [facility] MEDICINE [address] [place] [address] Tierney Goncalves FNP 230 [place] [address] documented as of this encounter Visit Diagnoses Diagnosis Fibromyalgia Unspecified myalgia and myositis documented in this encounter Additional Health Concerns Assessment Noted Time PHQ-9 Depression Total Score: 0 05/16/19 24 3:22 PM EST documented as of this encounter Care Teams Predictive Maintenance Technician Relationship Specialty Start Date End Date Tiernye Goncalves FNP 230 [place] [address] PCP - General Family Medicine 12/27/21 documented as of this encounter
--- OUTSIDE RECORDS SUMMARY | 2024-09-04 13:50 | XMS_ITS | Encounter Summary ---
Author Organization [employer] Address [address] [facility] [address] [address] 7t [place] [address] Care Team Providers Care Children'S Literature Professor Name Role Phone Tierney Goncalves ORGANIC EXTRACTIONS TECHNICIAN Primary Care Provider [phone] Encounter Details Date Type Department Care Team ([facility] st Contact Info) Description 09/07/[address] 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 MEDICINE [address] [place] [address] Tierney Goncalves FNP 230 [place] [address] documented as of this encounter Visit Diagnoses Not on filedocumented in this encounter Additional Health Concerns Assessment Noted Time PHQ-9 Depression Total Score: 0 05/16/19 24 3:22 PM EST documented as of this encounter Care Teams Children'S Literature Professor Relationship Specialty Start Date End Date Tierney Goncalves FNP 230 [place] [address] PCP - General Family Medicine 12/27/21 documented as of this encounter
--- OUTSIDE RECORDS SUMMARY | 2024-09-04 13:51 | XMS_ITS | Encounter Summary ---
Author Organization [employer] Address [address] [place] [address] [facility] [place] [address] Care Team Providers Care Programming Engineer Name Role Phone Tierney Goncalves [facility] Primary Care Provider [phone] Encounter Details Date Type Department Care Team ([facility] Contact Info) Description 05/16/2022 Telephone [facility] MEDICINE 230 [place], [place] [phone] Tierney Goncalves [facility] 230 [place] [address] Social History Tobacco Use Types Packs/Day Years [...] 2:00 PM EDT Office Visit [facility] MEDICINE [address] [place] [phone] Tierney Goncalves FNP 230 [place] [address] documented as of this encounter Visit Diagnoses Not on filedocumented in this encounter Care Teams Programming Engineer Relationship Specialty Start Date End Date Tierney Goncalves FNP [address] [place] [address] PCP - General Family Medicine 12/27/21 documented as of this encounter
--- OUTSIDE RECORDS SUMMARY | 2024-09-04 13:51 | XMS_ITS | Encounter Summary ---
Author Organization [employer] Address [address] [facility] 7t [place] [address] Care Team Providers Care Legal Administrative Assistant Name Role Phone [facility] Primary Care Provider [phone] Reason for Visit * Reason Onset Date Comments Prior Authorization 05/16/2024 Encounter Details Date Type Department Care Team ([facility] st Contact Info) Description 05/16/2024 Telephone [facility] MED & PEDS [address] [place] [address] [facility] [address] [place] [address] Prior Authorization Social History Tobacco Use Types [...] 2:00 PM EDT Office Visit [facility] MEDICINE [address] [place] [address] Tierney Goncalves FNP 230 [place] [address] documented as of this encounter Visit Diagnoses Not on filedocumented in this encounter Additional Health Concerns Assessment Noted Time PHQ-9 Depression Total Score: 0 05/16/19 24 3:22 PM EST documented as of this encounter Care Teams Legal Administrative Assistant Relationship Specialty Start Date End Date Tierney Goncalves FNP 230 [place] [address] PCP - General Family Medicine 12/27/21 documented as of this encounter
--- OUTSIDE RECORDS SUMMARY | 2024-09-04 13:51 | XMS_ITS | Encounter Summary ---
Author Organization [employer] Address [address] [place] [address] 7 [place] [address] Care Team Providers Care Qlikview Developer Name Role Phone [facility] Primary Care Provider [phone] Reason for Visit * Reason Comments Med Refill Encounter Details Date Type Department Care Team ([facility] Contact Info) Description 07/21/2022 Refill [facility] MEDICINE 230 [place] [address] [facility] 230 [place] [address] Joint pain in both hands Social History [...] Department Care Team ([facility] Contact Info) Description 09/24/2024 2:00 PM EDT Office Visit [facility] MEDICINE 230 [place] [address] Tierney Goncalves FNP 230 [place] [address] documented as of this encounter Visit Diagnoses Diagnosis Joint pain in both hands documented in this encounter Additional Health Concerns Assessment Noted Time PHQ-9 Depression Total Score: 0 05/18/19 23 2:28 PM EST documented as of this encounter Care Teams Qlikview Developer Relationship Specialty Start Date End Date Tierney Goncalves FNP 230 [place] [address] PCP - General Family Medicine 12/27/21 documented as of this encounter
--- OUTSIDE RECORDS SUMMARY | 2024-09-04 13:51 | XMS_ITS | Encounter Summary ---
Author Organization [employer] Address [address] [facility] 7t [place] [address] Care Team Providers Care Java Programming Professor Name Role Phone [facility] Primary Care Provider [phone] Reason for Visit * Reason Comments Med Refill Encounter Details Date Type Department Care Team ([facility] st Contact Info) Description 03/13/[address] [facility] MEDICINE 230 [place], [place] [phone] [facility] 230 [place] [address] Social History Tobacco Use Types Packs/Day Years [...] Description 09/24/2024 2:00 PM EDT Office Visit [facility] MEDICINE 230 [place] [address] Tierney Goncalves FNP 230 [place] [address] documented as of this encounter Visit Diagnoses Not on filedocumented in this encounter Additional Health Concerns Assessment Noted Time PHQ-9 Depression Total Score: 0 12/13/19 23 2:06 PM EDT documented as of this encounter Care Teams Java Programming Professor Relationship Specialty Start Date End Date Tierney Goncalves FNP [address] [place] [address] PCP - General Family Medicine 12/27/21 documented as of this encounter
--- OUTSIDE RECORDS SUMMARY | 2024-09-04 13:51 | XMS_ITS | Encounter Summary ---
Author Organization [employer] Address [address] [facility] 7t [place] [address] Care Team Providers Care Customer Relations Representative Name Role Phone [facility] Primary Care Provider [phone] Reason for Visit * Reason Onset Date Comments Nurse Triage 06/05/2024 Encounter Details Date Type Department Care Team (Late st Contact Info) Description 06/05/2024 Telephone [facility] MED[facility] 230 [place] [address] [facility] 230 [place] [address] Nurse Triage Social History Tobacco Use Types [...] Description 09/24/2024 2:00 PM EDT Office Visit [facility] 230 [place] [address] Tierney Goncalves FNP [address] [place] [address] documented as of this encounter Visit Diagnoses Not on filedocumented in this encounter Additional Health Concerns Assessment Noted Time PHQ-9 Depression Total Score: 0 05/16/19 24 3:22 PM EST documented as of this encounter Care Teams Customer Relations Representative Relationship Specialty Start Date End Date Tierney Goncalves FNP [address] [place] [address] PCP - General Family Medicine 12/27/21 documented as of this encounter
--- OUTSIDE RECORDS SUMMARY | 2024-09-04 13:51 | XMS_ITS | Encounter Summary ---
Author Organization [employer] Address [address] [facility] [address] 7t [place] [address] Care Team Providers Care Tire Maker Name Role Phone [facility] Primary Care Provider [phone] Encounter Details Date Type Department Care Team (Late st Contact Info) Description 08/08/2023 Orders Only [facility] MEDICINE 230 [place] [address] ProviderEvon MD Social History Tobacco Use Types [...] Description 09/24/2024 2:00 PM EDT Office Visit [facility] MEDICINE [address] [place] [address] Tierney Goncalves FNP 230 [place] [address] documented as of this encounter Procedures Procedure [...] documented as of this encounter Care Teams Tire Maker Relationship Specialty Start Date End Date Tierney Goncalves FNP [address] [place] [address] PCP - General Family Medicine 12/27/21 documented as of this encounter
--- OUTSIDE RECORDS SUMMARY | 2024-09-04 13:51 | XMS_ITS | Encounter Summary ---
Author Organization [employer] Address [address] [facility] [address] 7t [place] [address] Care Team Providers Care Chemical Dependency Counselor Name Role Phone [facility] Primary Care Provider Encounter Details Date Type Department Care Team (Late st Contact Info) Description 08/05/2024 Orders Only [facility] [address] [place], [place] [phone] ProviderEvon MD Social History Tobacco Use Types [...] Description 09/24/2024 2:00 PM EDT Office Visit [facility] MED[facility]INE 230 [place] [address] IvannaTierney [facility] 230 [place] [address] documented as of this encounter Procedures Procedure Name Priority Date/Time Associated Diagnosis Comments COLPOSCOPY Routine 12/17/2023 10:24 AM EDT documented in this encounter Results * Colposcopy (12/17/2023 10:24 AM EDT) us Historical Provider MD IN CLINIC/BEDSIDE ORDERAB LES Final Result documented in this encounter Visit Diagnoses Not on filedocumented in this encounter Additional Health Concerns Assessment Noted Time PHQ-9 Depression Total Score: 0 05/16/19 24 3:22 PM EST documented as of this encounter Care Teams Chemical Dependency Counselor Relationship Specialty Start Date End Date Ivanna Tierney [facility] 230 [place] [address] PCP - General Family Medicine 12/27/21 documented as of this encounter
--- OUTSIDE RECORDS SUMMARY | 2024-09-04 13:51 | XMS_ITS | Encounter Summary ---
Author Organization [employer] Address [address] 7t [place] [address] Care Team Providers Care Circulation Librarian Name Role Phone [facility] Primary Care Provider [phone] Encounter Details Date Type Department Care Team (Late st Contact Info) Description 11/13/2023 Orders Only [facility] MEDICINE 230 [place] [address] ProviderEvon MD Social History Tobacco Use Types [...] Description 09/24/2024 2:00 PM EDT Office Visit [facility] MEDICINE [address] [place] [address] Tierney Goncalves FNP 230 [place] [address] documented as of this encounter Procedures Procedure [...] documented as of this encounter Care Teams Circulation Librarian Relationship Specialty Start Date End Date Tierney Goncalves FNP [address] [place] [address] PCP - General Family Medicine 12/27/21 documented as of this encounter
--- OUTSIDE RECORDS SUMMARY | 2024-09-04 13:51 | XMS_ITS | Clinical Summary ---
Author Organization [employer] Address [address] [place] [address] Care Team Providers Care Law Librarian Name Role Phone Ivanna Mease [facility] Primary Care Provider [phone] Allergies No known active allergies Medications omeprazole [...] Negative EMB 09/01/22 ? ? Followed by [facility] Mixed hyperlipidemia 05/26/2022 Overview (05/26/2022): ?? 03/2022 ASCVD 2.8% ?? Diet controlled Healthcare maintenance 04/02/2022 Overview (08/15/2023): Mammo: 02/2023 bi-rads 2 Pap: 05/2021 though [facility], NIL HPV +'colpo PADMINI 1, repeat co-testing due 09/2023 C-scope: 2017, has upcoming appointment BMD: Routine age 67 HCV Screen: Neg 2016 HIV Screen: Neg 2015 Immunizations: declines COVID booster today. Otherwise UTD Screening Labs: A1c-4.8, 2020 Assessment & Plan (04/02/2022 1:22 PM EST): Mammo: 02/2022 bi-rads 2, repeat 02/2023 Pap: 05/2021 though [facility], NIL HPV +, pt does not now what follow up is scheduled with Dr. Sen Dumontscope: 2017 BMD: Routine age 67 HCV Screen: [...] dysphagia and early satiety - Followed by [facility] GI with previously benign EGD w/ esophageal spasm, negative gastric emptying study, neg. H.pylori biopsy Osteoarthritis of facet joint of lumbar spine Overview (05/18/2022): - Hx of sacroilitis - Previously seen by [facility] ortho and pain mngmt; has received numerous steroid injections with minimal sx improvement. Has tried PT for various concerns without improvement. - Is not currently followed by ortho or pain mngmt ?? Non-toxic multinodular goiter 07/20/2017 Overview (05/18/2022): Benign multi-nodular goiter followed by [facility] endo. Per lats visit note 08/2021, patient to reconsider thyroidectomy if sx of dysphagia worsen; has follow up in 6 months - Per chart review pt was referred to [facility] for possible thyroidectomy however pt does not have transportation. Insurance barriers limit more local access. -FNA of left mid pole nodule on 04/20/16 consistent with benign follicular nodule. 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 Per visit note plan to monitor q. 6 months and consider biopsy if WBC count < 2 or development of B sx Diffuse spasm of esophagus 05/17/2016 Fibromyalgia 04/28/2016 Overview (01/02/2023): ?? Duloxetine 40mg daily ?? Amitriptyline 10mg at bedtime ?? Chronic back pain, shoulder pain ?? Hx of sacroilitis ?? Previously seen by [facility] ortho and pain mngmt; has received numerous [...] Description 08/06/2024 9:30 AM EDT Office Visit [facility] [address] [place] [address] Jannet Mensah NP Elevated liver enzymes (Primary Dx); Low serum potassium 08/06/2024 Travel 08/05/2024 Orders Only [facility] [address] [place], [place] [phone] ProviderEvon MD 08/05/2024 Telephone [facility] [address] [place] [address] IvannaTierney wright [facility] ER Follow-up; Nurse Triage 08/04/2024 Orders Only GENERIC EXTERNAL DATA DEPARTMENT Provider, [facility] External Data 07/18/2024 Orders Only [facility] External Provider, 07/09/2024 Refill [facility] [address] [place] [address] IvannaTierney wright [facility] Fibromyalgia 06/13/2024 Orders Only [facility] External Provider, from Last 3 Months Immunizations Name Administration [...] your housing situation today? I have dale ehrnandez 02/15/[address] you li [...] Description 09/24/2024 2:00 PM EDT Office Visit [facility] [address] [place] [address] Havelock, Tierney, BACKER UP [address] [place] [address] Health Maintenance Due Date Last Done Comments [...] included. Sodium 140 135 - 145 mmol/L [facility] Potassium 3.5 3.3 - 5.1 mmol/L [facility] Chloride 109(H) 96 - 108 mmol/L [facility] Carbon Dioxide 26 22 - 29 mmol/L [facility] Anion Gap 9(L) 12 - 20 [facility] Urea Nitrogen (BUN) 12 9 - 16 mg/dL [facility] Creatinine, Serum 0.75 0.5 - 1.4 mg/dL [facility] Estimated Glomerular Filt Rate >60 [facility] Comment:Chronic Kidney Disea se: Estimated GFR < 60 mL/min/1.65j3Ykpnaw Kidney Disease: Estimated GFR < 15 mL/min/1.73m2 Glucose 84 60 - 115 mg/dL [facility] Calcium 9.0 8.4 - 10.2 mg/dL [facility] Bilirubin, Total 0.4 0.0 - 1.0 mg/dL [facility] Aspartate Amino Transferase 165(H) 5 - 31 U/L [facility] Alanine Aminotransferase 464(H) 0 - 31 U/L [facility] Total Protein 7.1 6.5 - 8.0 g/dL [facility] Albumin Level 4.0 3.5 - 5.0 g/dL [facility] Alkaline Phosphatase 225(H) 39 - 117 U/L [facility] Blood Venous blood specimen / Unknown 08/06/2024 10:13 AM EDT 08/06/2024 11:45 AM EDT Jannet Mensah DIE OPERATOR LAB BLOOD ORDERABLES Final Resu lt [facility] [address] [place] [phone] [phone] * Lactic Acid (08/04/2024 10:03 AM EDT) Lactic Acid 0.9 0.5 - 2.0 mmol/L [facility] 08/04/2024 10:0 3 AM EDT 08/04/2024 10:07 AM EDT Generic External Data Provider LAB BLOOD ORDERAB LES Final Result Performing Organization Address [facility] de Phone Number [facility] [address] [place] [phone] * Blood Culture (First) (08/04/2024 10:02 AM EDT) Blood Venous blood specimen / Unknown 08/04/2024 10:02 AM EDT 08/04/2024 10:07 AM EDT Comment:Blood Narrative [facility] - 08/09/2024 12:07 PM EDT Blood Culture (First) No growth after 5 days. Specimen Source: Blood Generic External Data Provider LAB MICROBIOLOGY - GENERAL ORDERABLES Final Result Performing Organization Address [facility] Phone Number [facility] [address] [place] [phone] * Blood Culture (Second) (08/04/2024 10:02 AM EDT) Blood Venous blood specimen / Unknown 08/04/2024 10:02 AM EDT 08/04/2024 10:07 AM EDT Comment:Blood Narrative [facility] - 08/09/2024 12:07 PM EDT Blood Culture (Second) No growth after 5 days. Specimen Source: Blood Generic External Data Provider LAB MICROBIOLOGY - GENERAL ORDERABLES Final Result Performing Organization Address [facility] de Phone Number [facility] [address] [place] [phone] * SARS-CoV-2 RNA, Influenza A/B, and RSV RNA, Ql NAAT (08/04/2024 9:22 AM EDT) Influenza A PCR NEGATIVE Negative [facility] Influenza B PCR NEGATIVE Negative [facility] Resp Syncy Virus RNA Qual PCR NEGATIVE Negative [facility] SARS COV2 PCR NEGATIVE Negative [facility] Comment:All test results mus t be [...] use by authorized laboratories.Testing performed on the Odysii GeneXpert utilizingreal-time RT-PCR.All SARS CoV2 and positive influenza A/B results arereported to [facility]. 08/04/2024 9:22 AM EDT 08/04/2024 9:26 AM EDT us Generic External Data Provider LAB MICROBIOLOGY - GENERAL ORDERABLES Final Result [facility] [address] [place] [phone] * CT Abdomen Pelvis w/ Contrast (08/04/2024 9:04 AM EDT) Anatomical Region Laterality Modality Body, Pelvis, Abdomen Computed T omography 08/04/2024 9:04 AM EDT Narrative 08/04/2024 9:39 AM EDT ?[address] ?[place] [address] ? CT Scan Report ? Signed ? Patient: Flynn,Alba Y ?MR#: [id number] ? : 1960 ?Acct:[id number] ? Age/Sex: 64 / F ?ADM Date: 08/04/ ? Loc: HO.ED ? Attending Dr: ? Ordering Physician: Angelika Skaggs DO ?? Date of Service: 08/04/24 ?? Procedure(s): CT abdomen pelvis w IV con ?? Accession Number(s): [id number] ? cc: Angelika Skaggs DO; Tierney Goncalves BACKER UP ? Report Number: ?? [id number]: Total DLP = ??339.00 mGy-cm ?? EXAMINATION: [...] signed by Gasper Montez MD in OV> ?08/04/2435 ? DD/ 3 ? TD/TT: 08/04/24919 ? Ludlow Machine Operator: ? Procedure Note Rico Nelson - 08/04/[address] [address] [place] Scan Report Signed Patient: Adela Flynn YMR#: [id number] : 1960cct:[id number] Age/Sex: 64 / FADM Date: 08/04/24 Loc: HO.ED Attending Dr: Ordering Physician: Angelika Skaggs DO Date of Service: 08/04/24 Procedure(s): CT abdomen pelvis w IV con Accession Number(s): [id number] cc: Angelika Skaggs DO; [facility] Report Number: [id number]: Total DLP = 339.00 mGy-cm EXAMINATION: CT [...] Gasper Montez MD 08/04/2024 09:35 AM EDT Dictated By: Gasper Montez MD Signed By: <Electronically signed by Gasper Montez MD in OV> 08/04/24934 DD/ 3 TD/TT: 08/04/24919 Ludlow Machine Operator: [facility] External Provider IMG CT PROCEDURES Final Result * (ABNORMAL) Urinalysis, Complete, with Reflex to Culture (08/04/2024 8:24 AM EDT) Color Urine Yellow [facility] Appearance Urine Clear [facility] PH 6.0 5.0 - 9.0 [facility] Glucose Urine UA Negative Negative mg/dL [facility] Urine Blood Moderate (2+)(A) Negative [facility] Specific [place] - Urine 1.015 1.005 - 1.025 [facility] Urine Protein Negative Neg-Trace mg/dL [facility] Urine Ketones 15 Negative mg/dL [facility] Nitrite Urine Negative Negative [facility] Leukocyte Esterase Urine Negative Negative [facility] RBC Urine 11-20(A) 0 - 2 /HPF [facility] Urine WBC 0-5 0 - 5 /HPF [facility] Urine Squamous Epithelial Cell 0-2 0 - 2 /HPF [facility] Urine Bacteria None Seen None Seen [facility] Hyaline Casts, Urine 0-2 0 - 2 /LPF [facility] 08/04/2024 8:24 AM EDT 08/04/2024 8:27 AM EDT Narrative [facility] - 08/04/2024 8:37 AM EDT [id number], Clean Catch us Generic External Data Provider LAB URINE ORDERAB LES Final Result [facility] [address] [facility] [place] [phone] * US Abdomen Limited (08/04/2024 8:08 AM EDT) Anatomical Region Laterality Modality Abdomen Ultrasound 08/04/2024 8:08 AM EDT Narrative 08/04/2024 9:05 AM EDT ?[address] ?[place] [address] ? Ultrasound Report ? Signed ? Patient: Flynn,Alba Y ?MR#: [id number] ? : 1960 ?Acct:[id number] ? Age/Sex: 64 / F ?ADM Date: 08/04/24 ? Loc: HO.ED ? Attending Dr: ? Ordering Physician: Angelika Skaggs DO ?? Date of Service: 08/04/24 ?? Procedure(s): US abdomen limited ?? Accession Number(s): [id number] ? cc: Angelika Skaggs DO; Tierney Goncalves BACKER UP ? EXAMINATION: ??US ABDOMEN LIMITED ? HISTORY: [...] DD/ 0808 ? TD/TT: 08/04/24 0815 ? Ludlow Machine Operator: ? Procedure Note Rico Nelson - 08/04/2024 [place] [address] Ultrasound Report Signed Patient: Adela Flynn YMR#: [id number] : 1960cct:[id number] Age/Sex: 64 / FADM Date: 08/04/24 Loc: HO.ED Attending Dr: Ordering Physician: Angelika Skaggs DO Date of Service: 08/04/24 Procedure(s): US abdomen limited Accession Number(s): [id number] cc: Angelika Skaggs DO; Tierney Goncalves [facility] EXAMINATION: US ABDOMEN LIMITED HISTORY: abnormal LFTs, [...] 08/04/24 0902 DD/ 0808 TD/TT: 08/04/24 0815 Ludlow Machine Operator: [facility] External Provider IMG US PROCEDURES Final Result * Hepatitis Panel, General (08/04/2024 7:29 AM EDT) Hepatitis A IgM Nonreactive Nonreactive [facility] Comment:IgM antibodies to SERRANO V not detected; does not exclude earlyacute or recovered HAV infection. ~Hepatitis B Surface Antibody REACTIVE Nonreactive [facility] Comment:REACTIVE: > 11.99 mI U/mL Hepatitis B Core Antibody Nonreactive Nonreactive [facility] Hepatitis C Antibody Nonreactive Nonreactive [facility] Comment:Antibodies to HCV no t detected; does not exclude early acuteHCV infection. Hepatitis B Surface Ag Negative Negative [facility] 08/04/2024 7:29 AM EDT 08/04/2024 7:34 AM EDT us Generic External Data Provider LAB BLOOD ORDERAB LES Final Result Performing Organization Address City/[facility]/ZIP Co de Phone Number [facility] [address] [place] [phone] * Acetaminophen level (08/04/2024 7:29 AM EDT) Pathologist [facility] Acetaminophen LAB <3 <30 mcg/mL [facility] 08/04/2024 7:29 AM EDT 08/04/2024 7:34 AM EDT Generic External Data Provider LAB BLOOD ORDERAB LES Final Result Performing Organization Address [facility] Co de Phone Number [facility] [address] [place] [phone] * (ABNORMAL) CBC auto differential (08/04/2024 5:48 AM EDT) [facility] White Blood Count 3.8(L) 4.8 - 10.8 X10*3/uL [facility] Red Blood Count 4.08(L) 4.20 - 5.50 X10*6/uL [facility] Hemoglobin 12.3 12.0 - 16.0 g/dl [facility] Hematocrit 36.6(L) 37.0 - 47.0 % [facility] Mean Corpuscular Volume 89.7 80.0 - 98.0 fL [facility] Mean Corpuscular Hemoglobin 30.1 27.0 - 33.0 pg [facility] Mean Corpuscular HGB Conc 33.6 31.0 - 35.0 g/dl [facility] Red Cell Distribution Width 12.5 11.0 - 16.0 % [facility] Platelet Count 232 160 - 400 X10*3/uL [facility] Mean Platelet Volume 9.4 9.4 - 12.3 fL [facility] Neutrophils Percent Auto 89.6(H) 45 - 73 % [facility] Imm Gran Pct Auto 0.3 0.0 - 0.4 % [facility] Lymphocytes Percent Auto 4.0(L) 20 - 40 % [facility] Monocytes Percent Auto 4.0 2 - 11 % [facility] Eosinophils Percent Auto 1.8 0 - 4 % [facility] Basophils Percent Auto 0.3 0 - 2 % [facility] NRBC Pct Auto 0.0 0.0 - 0.2 /100WBC [facility] Neutrophils Absolute Auto 3.4 2.0 - 8.3 x10*3/uL [facility] Imm Gran Abs Auto 0.01 0.00 - 0.03 X10*3/uL [facility] Lymphocytes Absolute Auto 0.2(L) 1.2 - 4.9 X10*3/uL [facility] Monocytes Absolute Auto 0.2 0.1 - 1.2 X10*3/uL [facility] Eosinophils Absolute Auto 0.1 0.0 - 0.4 X10*3/uL [facility] Basophils Absolute Auto 0.0 0.0 - 0.2 X10*3/uL [facility] NRBC Abs Auto 0.000 0.0 - 0.012 X10*3/uL [facility] 08/04/2024 5:48 AM EDT 08/04/2024 5:51 AM EDT us Generic External Data Provider LAB BLOOD ORDERAB LES Final Result Performing Organization Address City/[facility]/ZIP Co de Phone Number [facility] [address] [place] [phone] * Lipase (08/04/2024 5:48 AM EDT) Lipase 9 8 - 78 U/L [facility] 08/04/2024 5:48 AM EDT 08/04/2024 5:51 AM EDT us Generic External Data Provider LAB BLOOD ORDERAB LES Final Result Performing Organization Address City/[facility] Co de Phone Number [facility] [address] [place] [phone] * XR Wrist 3+ Views Left (07/21/2024 11:32 AM EDT) Anatomical Region Laterality Modality Upper Extremities, Wrist Left Radiogr aphic Imaging 07/21/2024 11:3 2 AM EDT Narrative 07/21/2024 11:34 AM EDT ? [facility] ? [address] ?[place] ?XRay Report ? Signed ? Patient: Flynn,Alba Y ?MR#: [id number] ? : 1960 ?Acct:[id number] ? Age/Sex: 64 / F ?ADM Date: 07/18/24 ? Loc: HO.HOSX ? Attending Dr: Carroll DAVALOS ? Ordering Physician: Carroll Bowser ?? Date of Service: 07/18/24 ?? Procedure(s): XR wrist LT min 3V ?? Accession Number(s): [id number] ? cc: Carroll Bowser; Tierney Goncalves [facility] ? CLINICAL HISTORY: M25.532 - Pain in [...] DD/ 1132 ? TD/TT: 07/21/24 1132 ? Ludlow Machine Operator: ? Procedure Note Omar, Rico - 07/21/2024 [facility] [address] [place] [address] [address] [place] [address] XRay Report Signed Patient: Adela [place] YMR#: [id number] : 2Acct:[id number] Age/Sex: 64 / FADM Date: 07/18/24 [facility]: Carroll DAVALOS Ordering Physician: Carroll Bowser Date of Service: 07/18/24 Procedure(s): XR wrist LT min 3V Accession Number(s): [id number] cc: Carroll Bowser; [facility] CLINICAL HISTORY: M25.532 - Pain in [...] 07/21/24 1133 DD/ 1132 TD/TT: 07/21/24 1132 Ludlow Machine Operator: [facility] External Provider IMG XR PROCEDURES Final Result * XR Wrist 3+ Views Right (07/21/2024 11:31 AM EDT) Anatomical Region Laterality Modality Upper Extremities, Wrist Right Radiogr aphic Imaging 07/21/2024 11:3 1 AM EDT Narrative 07/21/2024 11:32 AM EDT ? [facility] ? [address] ?[place] [address] ?XRay Report ? Signed ? Patient: Flynn,Alba Y ?MR#: [id number] ? : 1960 ?Acct:[id number] ? Age/Sex: 64 / F ?ADM Date: 07/18/24 ? Loc: HO.HOSX ? Attending Dr: Carroll DAVALOS ? Ordering Physician: Carroll Bowser ?? Date of Service: 07/18/24 ?? Procedure(s): XR wrist RT min 3V ?? Accession Number(s): [id number] ? cc: Carroll Bowser; Tierney Goncalves BACKER UP ? CLINICAL HISTORY: M25.531 - Pain in [...] Jewel Dalton MD in OV> ? 07/21/24 113 ? DD/ 113 ? TD/TT: 07/21/24 1131 ? Ludlow Machine Operator: ? Procedure Note Donjanaecalvinter, Image - 07/21/2024 [facility] [address] [place] [address] Drive [address] [place] [address] XRay Report Signed Patient: Adela [place] YMR#: [id number] : 2Acct:[id number] Age/Sex: 64 / FADM Date: 07/18/24 Loc: JAZMIN Attending Dr: Carroll DAVALOS Ordering Physician: Carroll Bowser Date of Service: 07/18/24 Procedure(s): XR wrist RT min 3V Accession Number(s): [id number] cc: Carroll Bowser; [facility] CLINICAL HISTORY: M25.531 - Pain in [...] 07/21/24 1131 DD/ 1131 TD/TT: 07/21/24 1131 Ludlow Machine Operator: [facility] External Provider IMG XR PROCEDURES Final Result * XR Shoulder 2+ Views Left (06/14/2024 5:38 AM EST) Anatomical Region Laterality Modality Upper Extremities, Shoulder Left Radi ographic Imaging 06/14/2024 5:38 AM EST Narrative 06/14/2024 5:39 AM EST ? [place] [facility] ?[address] ?[place] [address] ?XRay Report ? Signed ? Patient: Flynn,Alba Y ?MR#: [id number] ? : 1960 ?Acct:[id number] ? Age/Sex: 64 / F ?ADM Date: 06/13/24 ? Loc: HO.XRAY ? Attending Dr: Kanika Liz BACKER UP ? Ordering Physician: Kanika Liz ?? Date of Service: 06/13/24 ?? Procedure(s): XR shoulder LT min 2V ?? Accession Number(s): [id number] ? cc: Kanika Liz BACKER UP; Tierney Goncalves BACKER UP ? CLINICAL HISTORY: M25.512 - Pain in left shoulder ? 4 view left shoulder ? Comparison: CR/GA/SR - XR SHOULDER LT MIN 2V - 11/01/21 15:06 EDT ? Findings: ?? No fractures or dislocations. ?? Euek-kr-uueybdoy osteoarthritic changes of the AC joint. ?? No erosions. No radiopaque foreign body. ? IMPRESSION: ?? 1. No acute findings ? This document has been electronically signed by: Diego Fan MD on ?? 06/14/2024 05:38:17 ? Dictated By: ?Diego Fan MD ? Signed By: ?<Electronically signed by Diego Fan MD in OV> ?06/14/24537 ? DD/ 7 ? TD/TT: 06/14/24537 ? Ludlow Machine Operator: ? Procedure Note Omar, Image - 06/14/2024 [place] [address] XRay Report Signed Patient: Adela Flynn YMR#: [id number] : 2Acct:[id number] Age/Sex: 64 / FADM Date: 06/13/24 Loc: RAUL Attending Dr: Kanika SOL Ordering Physician: Kanika Liz Date of Service: 06/13/24 Procedure(s): XR shoulder LT min 2V Accession Number(s): [id number] cc: Kanika Liz; [facility] BACKER UP CLINICAL HISTORY: M25.512 - Pain in left shoulder 4 view left shoulder Comparison: CR/GA/SR - XR SHOULDER LT MIN 2V - 11/01/21 15:06 EDT Findings: No fractures or dislocations. Hwbx-ny-hnzfbghv osteoarthritic changes of the AC joint. No erosions. No radiopaque foreign body. IMPRESSION: 1. No acute findings This document has been electronically signed by: Diego Fan MD on 06/14/2024 05:38:17 Dictated By: Diego Fan MD Signed By: <Electronically signed by Diego Fan MD in OV> 06/14/24 0538 DD/ TD/TT: 06/14/2438 Ludlow Machine Operator: [facility] External Provider IMG XR PROCEDURES Edited Result - Final * BI Mammogram Screening Tomosynthesis Bilateral (03/17/2024 2:15 PM EST) Anatomical Region Laterality Modality Breast Bilateral Mammography 03/17/2024 2:15 PM EST Narrative 03/25/2024 3:23 PM EST ? [facility] ? [address] ?[place] [address] ? Mammography Report ? Signed ? Patient: Flynn,Adela Y ?MR#: [id number] ? : 1960 ?Acct:[id number] ? Age/Sex: 64 / F ?ADM Date: 11/18/24 ? Loc: HO.MAMMO ? Attending Dr: Tierney Ivanna BACKER UP ? Ordering Physician: Havelock,Tierney BACKER UP ?Results: 2Beni ?? gn Findings ? Date of Service: 11/18/24 ?Follow Up: 1 Year From Orig ?? inal Mammogram ? Procedure(s): MM tomosynthesis screening BI ?? Accession Number(s): [id number] ? cc: Ivanna,Tierney BACKER UP ? EXAMINATION: ?? MM SCREENING DIGITAL BREAST [...] DD/ 1415 ? TD/TT: 03/17/24 1430 ? Ludlow Machine Operator: ? Procedure Note Omar, Image - 03/25/2024 [facility] [address] [place] [address] Mammography Report Signed Patient: Adela [place] YMR#: [id number] : 2Acct:[id number] Age/Sex: 64 / FADM Date: 03/17/24 Loc: HO.MAMMO Attending Dr: Tierney Goncalves BACKER UP Ordering Physician: Tierney Goncalves FNPResults: 2Beni gn Findings Date of Service: 03/17/24Follow Up: 1 Year From Orig inal Mammogram Procedure(s): MM tomosynthesis screening BI Accession Number(s): [id number] cc: IvannaTierney wright BACKER UP EXAMINATION: MM SCREENING DIGITAL BREAST TOMOSYNTHESIS, BILATERAL [...] by: Emma Cerda DO 03/25/2024 03:20 [facility] Dictated By: Emma Cerda DO Signed By: <Electronically signed by Emma Cerda DO in OV> 03/25/24 1520 DD/ 1415 TD/TT: 03/17/24 1430 Ludlow Machine Operator: [facility] BACKER UP IMG BI PROCEDURES Final Resul t * Colposcopy (12/17/2023 10:24 AM EDT) Historical Provider MD IN CLINIC/BEDSIDE ORDERAB LES Final Result * (ABNORMAL) HM PAP/HPV (11/05/2023) Pap Smear 1. NILM 1. NILM HPV Detected(A ) Undetected, Indeterminate , Quantitative, Not Detected Historical Provider HEALTH MAINTENANCE Final Result * Hm Colonoscopy (03/06/2023 8:12 AM EST) us Historical Provider HEALTH MAINTENANCE Final Result from Last 3 Months or Most Recently Relevant to Health Maintenance Insurance [facility] , [address] [place] [address] DENTAL - HSN PARTIAL (MEDICAID) Care Teams Law Librarian Relationship Specialty Start Date End Date Tierney Goncalves FNP [address] [place] [phone] PCP - General Family Medicine 12/27/21
--- OUTSIDE RECORDS SUMMARY | 2024-09-04 13:51 | XMS_ITS | Encounter Summary ---
Author Organization [employer] Address [address] [place] [address] Care Team Providers Care Rough And Trueing Machine Operator Name Role Phone [facility] Primary Care Provider Reason for Visit * Reason Onset Date Comments ER Follow-up 08/05/2024 Nurse Triage 08/05/2024 Encounter Details Date Type Department Care Team (Late st Contact Info) Description 08/05/2024 Telephone [facility] [address] [place] [address] [facility] [address] [place], [place] [phone] ER Follow-up; Nurse Triage Social History Tobacco [...] your housing situation today? I have dale hrenandez 02/15/[address] you li [...] 08/05/2024 10:11 AM EDT Date: 08/04/24 [place] [facility] [place]en for: elevated liver function Symptomatic Yes, can't really eat due to feeling nauseous Pt. States was told needs liver function testing within 48 hours. Called pt. She states she started feeling sick to her stomach x 2 days ago. Pt. Had vomiting ,diarrhea, and chills. Pt went to [facility] on 08/04/24. Provider in ED stated [...] pt. Chart but I do not see [facility] [place] in chart. Will send request for [facility] report from 08/04/24 to be put [...] For 08/06/24 at 930am with Harika Mensah VACCINE SPECIALIST for [facility] FU and discussion to repeat labs [...] ED visit on : Date: 08/04/24 Hospital: [facility] Seen for: elevated liver function Symptomatic Yes, [...] 09/24/2024 2:00 PM EDT Office Visit [facility] [address] [place] [address] Tierney Goncalves FNP [address] [place] [address] documented as of this encounter Visit Diagnoses Not on filedocumented in this encounter Additional Health Concerns Assessment Noted Time PHQ-9 Depression Total Score: 0 05/16/19 24 3:22 PM EST documented as of this encounter Care Teams Rough And Trueing Machine Operator Relationship Specialty Start Date End Date Tierney Goncalves FNP [address] [place] [address] PCP - General Family Medicine 12/27/21 documented as of this encounter
--- NOTE | 2024-09-11 10:08 | P.CONAN_ITS ---
HPI - Anesthesia Eval Consult details Narrative: 64yo F for Right Diagnostic Femoral Nerve Block PMFSH Active Problems Active Problems: All Active Problems Chronic low back pain (Acute) Numbness and tingling in both hands (Acute) De Quervain's tenosynovitis, right (Acute) Arthritis of carpometacarpal joint (Acute) De Quervain's tenosynovitis, left (Acute) Bilateral wrist pain (Acute) Left shoulder pain (Acute) SOB (shortness of breath) (Acute) Lipoma (Acute) Status post repair of paraesophageal diaphragmatic hernia (Acute) Steatosis, liver (Acute) Arthritis of right knee (Acute) Right knee pain (Acute) Pre-op evaluation (Acute) HPV in female (Acute) Postcoital bleeding (Acute) Heart palpitations (Acute) Muscle spasms of neck (Acute) Left knee pain (Acute) Cervical spondylosis (Acute) Cervical radiculopathy (Acute) Achalasia (Acute) Rectal bleeding (Acute) RUQ abdominal pain (Acute) Dysplasia of cervix, low grade (PADMINI 1) (Acute) Osteoarthritis of right knee (Acute) Osteoarthritis of left knee (Acute) Myoma (Acute) Osteoarthritis of patellofemoral joint (Acute) Postmenopausal bleeding (Acute) Well woman exam (Acute) Migraines (Acute) Painful arc syndrome of right shoulder (Acute) Weight loss, non-intentional (Acute) Polyarthralgia (Acute) Constipation (Acute) IBS (irritable bowel syndrome) (Acute) Neutropenia (Acute) Weight loss (Acute) Dysphagia (Acute) Cervical high risk HPV (human papillomavirus) test positive (Acute) GERD (gastroesophageal reflux disease) (Acute) Karina's disease (Acute) Non-toxic multinodular goiter (Acute) Osteoarthritis of left hip (Acute) Chronic pain syndrome (Acute) Spondylosis, lumbar, with myelopathy (Acute) Sacroiliitis (Acute) Past Medical History Medical History Cervical high risk HPV (human papillomavirus) test positive Fibromyalgia Elevated cholesterol Weight loss Karina's disease Non-toxic multinodular goiter Osteoarthritis of left hip Schatzki's ring Hiatal hernia Hx of migraines History of multinodular goiter IBS (irritable bowel syndrome) GERD (gastroesophageal reflux disease) Dysphagia Chronic pain syndrome Spondylosis, lumbar, with myelopathy Sacroiliitis Family History Family History Father Unknown family medical history Mother Arthritis Diverticulitis Gastritis Breast cancer Chronic asthma Adenomatous colon polyp HTN (hypertension) Maternal Grandmother Colon cancer Daughter Hypothyroid Daughter Traveling blood clot in leg Obesity Prediabetes Family history of problems with anesthesia: No Surgical History Surgical History History of bilateral tubal ligation Hx of dilation and curettage Hx of arthroscopy of right knee History of esophagogastroduodenoscopy (EGD) Hx of colonoscopy History of cholecystectomy History of Problems with Anesthesia: No Social History Social History Household Members: Spouse Housing: House Are you a primary home health care social worker to a significant other at home: No Do you presently have visiting nurse or other home services: No Alcohol intake: never Patient Tobacco Use Status: Former Tobacco user Tobacco use type: Cigarette Years Smoked: 18 service: No Current occupational status: employed 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 Meds Allergies Allergy/AdvReac Type Severity Reaction Status Date / Time No Known Allergies Allergy Verified 09/11/24 08:44 [No Known Allergies*] Home Medications ?Medication ?Instructions ?Recorded ?Confirmed ?Last Taken ?Type diphenhydramine HCl 25 mg capsule 25 mg PO BEDTIME PRN Insomnia 11/03/20 08/26/24 11/05/23 History capsaicin 0.025 % topical cream 0.025 appl topical BID PRN Pain 07/24/22 08/26/24 Unknown History diclofenac sodium 1 % topical gel 1 g topical BID PRN Pain 07/24/22 08/26/24 Unknown History lidocaine 5 % topical ointment 5 appl topical Q OTHER DAY PRN Pain 07/24/22 08/26/24 Unknown History amitriptyline 10 mg tablet 5 mg PO BEDTIME PRN Insomnia 08/28/22 08/26/24 11/05/23 History omega 2-zjx-hqp-fish oil 1,000 mg 2 cap PO DAILY 09/01/22 08/26/24 03/03/24 History (120 mg-180 mg) capsule (Fish Oil) duloxetine 40 mg capsule,delayed 40 mg PO DAILY 09/21/22 08/26/24 03/03/24 History release Centrum Silver Women 1 tab PO DAILY 11/28/22 08/26/24 03/03/24 History acetaminophen 650 mg 650 mg PO TID 04/21/24 08/26/24 Unknown History tablet,extended release duloxetine 20 mg capsule,delayed 20 mg PO BID 09/11/24 Unknown History release Exam Pertinent Lab Results Pertinent Lab Results: Laboratory Tests 08/04/24 08/06/24 05:48 10:13 WBC 3.8 L Hgb 12.3 Hct 36.6 L Plt Count 232 Sodium 140 Potassium 3.5 Chloride 109 H Carbon Dioxide 26 BUN 12 Creatinine 0.75 Narrative Narrative: EKG 07/2024 Vent. Rate : 66 BPM Atrial Rate : 66 BPM P-R Int : 180 ms QRS Dur : 74 ms QT Int : 412 ms P-R-T Axes : 74 38 10 degrees QTcB Int : 431 ms Normal sinus rhythm Normal ECG When compared with ECG of 03-Apr-2023 10:01, Nonspecific T wave abnormality now evident in Lateral leads ECHO 2023 Conclusions: - The left ventricular systolic function is normal. The calculated ejection fraction is 68% by biplane method. - No obvious valvular pathology seen on this study. Holter 2023 1. Patient was monitored for total period of 13 days and 8 hours 2. Baseline was normal sinus rhythm with average heart of 61 beats per minute 3. Frequent sinus bradycardia noted with 55.5% of the time heart rate below 60 beats per minute 4. No significant pauses or ectopy burden noted 5. A total SVT events noted longest lasting 10 beats and the fastest at 152 beats per minute 6. Patient reported 5 events with symptoms of palpitations correlating with sinus tachycardia Assessment and Plan Assessment Anesthesia Assessment: Chart Reviewed Final Anesthetic Review Family History of Problems with Anesthesia: No History of Problems with Anesthesia: No
[2024-09-12 06:40] VITALS: BMI 22.7
[2024-09-12 11:47] VITALS: BP 101/67; PULSE 58; RESP 19; TEMP 37.1; O2SAT 99; BMI 22.1
[2024-09-12] MEDS: Lactated Ringers 1,000 ML 100 ML IVCONT (12:09)
--- NOTE | 2024-09-12 12:33 | MHC.SHP ---
Pre-Procedural Eval Section A - 24 Hr Update-Section A only Date of Service: 09/12/24 The patient is an INPATIENT: No Changes since office visit: Yes Patient answered all questions The patient has been examined within 24 hours of the surgical procedure. The History & Physical has been completed within 30 days and I have reviewed it.: No Section B - Complete if H&P > 30 days Chief Complaint: Unilateral primary osteoarthritis, right knee,pain Details of Present Illness: As above Relevant Family History (Specify if Yes): No Relevant Social History: Other (specify) Present Medications: None Medical History: No relevant PMH History of Previous Operations: No relevant previous surgery Allergies: Allergies Allergy/AdvReac Type Severity Reaction Status Date / Time No Known Allergies Allergy Verified 09/11/24 08:44 [No Known Allergies*] Review of Systems Sugical H&P ROS: Negative: Constitution, Cardiovascular, Respiratory, Neurological, Psychiatric, Hem-Onc, Allergic/Immunologic, Genitourinary, Integumentary and Eyes/Ears/Nose/Throat and Yes, Specify: Gastrointestinal (GERD), Musculoskeletal (Generalized osteoarthritis) and Endocrine (Karina disease) Exam Surgical H&P Exam: Normal: HEENT, Normal: Heart, Normal: Lungs, Normal: Extremities, Normal: Abdomen, Normal: Skin and Normal: Neurological Plan Diagnosis/Plan: Unchanged I have reviewed the history and physical and performed a pertinent physical examination on my patient. No changes have occurred unless specified. Time Spent With Patient Time: Total time managing care of this patient today __5__ minutes.
--- NOTE | 2024-09-12 12:50 | HO.ANESPROP2 ---
[facility] Active Problems Active Problems: All Active Problems Osteoarthritis of left shoulder (Acute) Chronic low back pain (Acute) Numbness and tingling in both hands (Acute) De Quervain's tenosynovitis, right (Acute) Arthritis of carpometacarpal joint (Acute) De Quervain's tenosynovitis, left (Acute) Bilateral wrist pain (Acute) Left shoulder pain (Acute) SOB (shortness of breath) (Acute) Lipoma (Acute) Status post repair of paraesophageal diaphragmatic hernia (Acute) Steatosis, liver (Acute) Arthritis of right knee (Acute) Right knee pain (Acute) Pre-op evaluation (Acute) HPV in female (Acute) Postcoital bleeding (Acute) Heart palpitations (Acute) Muscle spasms of neck (Acute) Left knee pain (Acute) Cervical spondylosis (Acute) Cervical radiculopathy (Acute) Achalasia (Acute) Rectal bleeding (Acute) RUQ abdominal pain (Acute) Dysplasia of cervix, low grade (PADMINI 1) (Acute) Osteoarthritis of right knee (Acute) Osteoarthritis of left knee (Acute) Myoma (Acute) Osteoarthritis of patellofemoral joint (Acute) Postmenopausal bleeding (Acute) Well woman exam (Acute) Migraines (Acute) Painful arc syndrome of right shoulder (Acute) Weight loss, non-intentional (Acute) Polyarthralgia (Acute) Constipation (Acute) IBS (irritable bowel syndrome) (Acute) Neutropenia (Acute) Weight loss (Acute) Dysphagia (Acute) Cervical high risk HPV (human papillomavirus) test positive (Acute) GERD (gastroesophageal reflux disease) (Acute) Karina's disease (Acute) Non-toxic multinodular goiter (Acute) Osteoarthritis of left hip (Acute) Chronic pain syndrome (Acute) Spondylosis, lumbar, with myelopathy (Acute) Sacroiliitis (Acute) Past Medical History Medical History Cervical high risk HPV (human papillomavirus) test positive Fibromyalgia Elevated cholesterol Weight loss Karina's disease Non-toxic multinodular goiter Osteoarthritis of left hip Schatzki's ring Hiatal hernia Hx of migraines History of multinodular goiter IBS (irritable bowel syndrome) GERD (gastroesophageal reflux disease) Dysphagia Chronic pain syndrome Spondylosis, lumbar, with myelopathy Sacroiliitis Patient : No Family History Family History Father Unknown family medical history Mother Arthritis Diverticulitis Gastritis Breast cancer Chronic asthma Adenomatous colon polyp HTN (hypertension) Maternal Grandmother Colon cancer Daughter Hypothyroid Daughter Traveling blood clot in leg Obesity Prediabetes Family history of problems with anesthesia: No Surgical History Surgical History History of bilateral tubal ligation Hx of dilation and curettage Hx of arthroscopy of right knee History of esophagogastroduodenoscopy (EGD) Hx of colonoscopy History of cholecystectomy History of Problems with Anesthesia: No Social History Social History Household Members: Spouse Housing: House Are you a primary home health care physician to a significant other at home: No Do you presently have visiting nurse or other home services: No Alcohol intake: never Patient Tobacco Use Status: Former Tobacco user Tobacco use type: Cigarette Years Smoked: 18 Have you been hit, kicked, punched, or otherwise hurt by someone within the past year? 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 Meds Allergies Allergy/AdvReac Type Severity Reaction Status Date / Time No Known Allergies Allergy Verified 09/11/24 08:44 [No Known Allergies*] Active Medications: Current Medications Lactated Ringer's (Lr) 1,000 mls @ 100 mls/hr IVCONT .Q10H CHERYL Last Admin: 09/12/24 12:09 Dose: 100 mls/hr Home Medications ?Medication ?Instructions ?Recorded ?Confirmed ?Last Taken ?Type amitriptyline 10 mg tablet 5 mg PO BEDTIME PRN Insomnia 08/28/22 09/12/24 11/05/23 History duloxetine 40 mg capsule,delayed 40 mg PO DAILY 09/21/22 09/12/24 03/03/24 History release Centrum Silver Women 1 tab PO DAILY 11/28/22 09/12/24 03/03/24 History Exam Exam Date and Time: 09/12/2024 Height,Weight and Vital Signs: Height 5 ft 3 in Weight 56.699 kg Last Vital Signs Temp 98.7 F 09/12/24 11:47 Pulse 58 09/12/24 11:47 Resp 19 09/12/24 11:47 BP 101/67 09/12/24 11:47 Pulse Ox 99 09/12/24 11:47 O2 Del Method Room Air 09/12/24 11:47 Airway Mallampati Class: I TM Dist: >3cm Denture: Upper Partial: Lower Loose/Missing/Broken Teeth: No Heart: rrr Lungs: cta Assessment and Plan Assessment Anesthesia Assessment: Anesthesia Plan Discussed Final Anesthetic Review Family History of Problems with Anesthesia: No History of Problems with Anesthesia: No NPO: Yes ASA Class: III Final Preanesthetic Review: No Changes in Pt Med Stat, Meds/Allgs Chart Reviewed, Consent Obtained/Reviewed and Anes Risks/Benef Reviewed Patient Risk: Low Procedure Risk: Low Anesthetic Plan Anesthetic Plan: MAC: Disposition: Standard PACU
--- NOTE | 2024-09-12 13:22 | PM.OP ---
Brief Operative Note Date of Service: 09/12/24 Pre-op diagnosis: Right knee pain right knee osteoarthritis. Post-op diagnosis: same Procedure: Right Femoral nerve block diagnostic. Implants: Not Surgeon: Carlo Azul MD Anesthesia: MAC Was an Import/Export Specialist used for this Procedure?: No Estimated blood loss (mL): 0 Condition: stable Disposition: PACU
--- NOTE | 2024-09-12 13:24 | P.OP_ITS ---
Operative Note Operative Note Date of Service: 09/12/24 Narrative: Utrasound-guided femoral nerve block on the right. The patient came to the operating room to receive ultrasound-guided femoral nerve block to diagnose and treat the chronic right knee pain. Informed consent was carefully explained to the patient risks and benefits were explained. Patient came to the operating room and positioned supine on the OR table. ASA monitors were applied and patient was sedated. Time-out was performed delineating name and date of of the patient, nature of the procedure and laterality of the procedure. Her right groin area was exposed. The right groin area was prepped with Chlora Prep and draped with self adhesive utility towels. Sterilely draped ultrasound probe was brought to the area of the injection and the femoral artery femoral vein and femoral nerve were demonstrated on the screen. The 100 mm echo stim needle was inserted extra anatomically through the skin into subcutaneous tissues and driven toward the femoral nerve under direct vision. When tip of the needle was in the vicinity of the nerve injection of the saline 1-2 cc was performed demonstrating spread of the tissues surrounding the femoral nerve. After that injection of the ropivacaine 0.5% 8 cc was performed into the needle. Upon completion of the injection the needle was removed Band-Aid was applied. Patient tolerated the procedure well.
[2024-09-12 13:27] VITALS: BP 82/47; PULSE 52; RESP 18; TEMP 36.1; O2SAT 97
[2024-09-12 13:40] VITALS: BP 95/56; PULSE 49; RESP 16; O2SAT 98
[2024-09-12 13:55] VITALS: BP 115/67; PULSE 48; RESP 16; TEMP 36.1; O2SAT 96
== END 2024-09-12 14:18 | disposition home or self-care (01) ==
PROVIDERS: PCP Registered Nurse; Visit Provider Anesthesiology
PROC: 3E0T3BZ Introduction of Anesthetic Agent into Peripheral Nerves and Plexi, Percutaneous Approach (ICD-10-PCS; CPT 64447; principal; 2024-09-12 13:40)
DX: M25.561 Pain in right knee (principal); M17.11 Unilateral primary osteoarthritis, right knee; G89.4 Chronic pain syndrome; M79.7 Fibromyalgia; E78.00 Pure hypercholesterolemia, unspecified; Z98.890 Other specified postprocedural states; Z87.891 Personal history of nicotine dependence
CPT/HCPCS: 64447; J2003; J2704; J2795

== ENCOUNTER → 2024-09-12 11:44 | Outpatient (BNV) | payer OTHER, SELFPAY | PROVIDERS: PCP Registered Nurse; Visit Provider Anesthesiology | DX: M17.11 Unilateral primary osteoarthritis, right knee (principal); M25.561 Pain in right knee | CPT/HCPCS: 64447 ==

== ENCOUNTER 2024-09-17 13:48 | Outpatient (REF) | payer OTHER, SELFPAY ==
--- NOTE | ~2024-09-17 | XR_ITS ---
EXAMINATION: XR LUMBAR SPINE 4 OR MORE VIEWS HISTORY: M54.50 - Low back pain, unspecified COMPARISON: Comparison is made with the prior examination dated 10/17/2017. FINDINGS: AP, lateral, bilateral oblique and coned down views of the lumbar spine are submitted. Osseous mineralization is normal. Five nonrib-bearing lumbar vertebral bodies are identified, maintaining normal height without evidence of fracture. There is grade I-II spondylolisthesis of L5 on S1. The intervertebral disc spaces are preserved. There is osteoarthritis of the lower lumbar facet joints. There is no spondylolysis. There are surgical clips in the right upper quadrant. XR/XR lumbar spine 4V min IMPRESSION: Grade I-II spondylolisthesis of L5 on S1. Osteoarthritis of the lower lumbar facet joints. Electronically signed by: Gasper Montez MD 09/17/2024 02:25 PM EDT
== END 2024-09-17 13:49 | disposition home or self-care (01) ==
LOC: HO.XRAY 13:48
PROVIDERS: PCP Registered Nurse; Visit Provider Nurse Practitioner Family
DX: M54.50 Low back pain, unspecified (principal); G89.29 Other chronic pain
CPT/HCPCS: 72110

== ENCOUNTER → 2024-09-17 13:54 | Outpatient (BNV) | payer OTHER, SELFPAY | PROVIDERS: PCP Registered Nurse; Visit Provider Radiology Diagnostic Radiology | DX: M43.17 Spondylolisthesis, lumbosacral region (principal) | CPT/HCPCS: 72110 ==

== ENCOUNTER 2024-09-19 08:47 | Outpatient (AMB) | payer OTHER, SELFPAY ==
--- NOTE | 2024-09-19 08:53 | A.OFFVIS_ITS ---
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 An ultrasound-guided femoral nerve block was performed by Dr. Azul, which provided 80% relief on the day of the injection but did not extend beyond 24 hours. The patient experienced temporary reduction in pain levels to 2/10 but returned to higher pain levels the following mid day. She continually experiences right knee pain, which has been the primary focus of this visit. The patient also reports episodic neck pain, characterized mainly as uncomfortable. The patient has expressed concern about tingling and numbness and has an upcoming EMG scheduled to further assess these symptoms. For the left shoulder pain, an injection with fluoroscopic guidance has been set in October. Future management will include potential Sprint PNS therapy, and for the neck issue, treatments are being prepared. - Onset: Chronic knee pain, with specific focus on right knee pain addressed by nerve block. - Quality and Character: Described as resistant to earlier pain management but responsive to initial procedural intervention. - Primary Location: Right knee; occasional reports of neck discomfort and shoulder pain. - Exacerbating Factors: Ongoing activity likely exacerbates the knee pain. - Relieving Factors: Nerve block provided temporary relief; subsequent oral medications (Tylenol) and diclofenac gel offered minimal relief. - Interference: Pain impacts daily functioning, necessitating ongoing management strategies. - Affect: Discussed management of knee and neck pain; impact on patient's overall mood not explicitly detailed. - Analgesia: Nerve block successfully reduced pain to 2/10 for 24 hours; additional oral medications provided slight relief following initial intervention. - Adverse Effects: None discussed related to pain medication. - Activities of Daily Living: Knee pain primarily affects daily activities, leading to consultations for enhanced intervention. - Aberrant Drug Related Behaviors: None reported or discussed. Past Procedures: 09/12/24: Right diagnostic femoral nerve block under sedation-80% pain relief for 24 hours 08/26/24: Bilateral Diagnostic C4-C5-C6 MBB-80-90% pain relief for 6 hours PFSH Medical History Cervical high risk HPV (human papillomavirus) test positive Fibromyalgia Elevated cholesterol Weight loss Karina's disease Non-toxic multinodular goiter Osteoarthritis of left hip Schatzki's ring Hiatal hernia Hx of migraines History of multinodular goiter IBS (irritable bowel syndrome) GERD (gastroesophageal reflux disease) Dysphagia Chronic pain syndrome Spondylosis, lumbar, with myelopathy Sacroiliitis Surgical History History of bilateral tubal ligation Hx of dilation and curettage Hx of arthroscopy of right knee History of esophagogastroduodenoscopy (EGD) Hx of colonoscopy History of cholecystectomy Family History Father Unknown family medical history Mother Arthritis Diverticulitis Gastritis Breast cancer Chronic asthma Adenomatous colon polyp HTN (hypertension) Maternal Grandmother Colon cancer Daughter Hypothyroid Daughter Traveling blood clot in leg Obesity Prediabetes Social History Household Members: Spouse Housing: House Are you a primary residential caregiver to a significant other at home: No Do you presently have visiting nurse or other home services: No Alcohol intake: never Patient Tobacco Use Status: Former Tobacco user Tobacco use type: Cigarette Years Smoked: 18 service: No Current occupational status: employed 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 Alert and oriented. Mood and affect appropriate. Follows and participates in conversation appropriately. Respiratory effort is unlabored. No cough. Able to transition from sit to stand unassisted. Ambulates with bilaterally normal heel strike and toe off. Neck Neck: Yes full ROM, Yes no lymphadenopathy, No anterior neck swelling, Yes no JVD and No prominent dorsocervical fat pad Back/Spine/Pelvis Cervical Spine: No Lhermitte's sign positive, loss of normal cervical lordosis, cervical muscular tenderness, pain with cervical ROM, cervical spasm (left >right), No Cervical spine tenderness and No step off deformity Extrem General: Yes capillary refill normal, Yes no clubbing, cyanosis or edema and Yes no calf tenderness Left lower extremity: knee (Limited ROM due to pain) Details: normal to inspection, tenderness Location: of the medial joint line and of the lateral joint line and crepitus; no swelling, no ecchymosis and no unusual warmth Results Reviewed Results Reviewed: MR CERVICAL SPINE WITHOUT CONTRAST 06/14/23 CLINICAL INFORMATION: Chronic neck pain with worsening radicular symptoms. COMPARISON: Cervical spine MRI 02/18/2016. FINDINGS: Straightening of the cervical lordosis. The vertebral body heights are maintained. There is moderate to severe disc volume loss at C4-C5 and C5-C6, progressed. Moderate disc volume loss at C3-C4 again noted. There are Modic type I endplate signal changes at C4-C5 and C5-C6. There is no additional bone marrow edema. There are no acute fractures. Craniocervical junction is unremarkable. Partially imaged intracranial compartment is unremarkable. Cervical arterial flow voids are maintained. Partially imaged multinodular thyroid gland is again noted which has been recently evaluated with thyroid ultrasound. C2-C3: A shallow disc protrusion mildly indents the ventral thecal sac. There is no foraminal stenosis. Findings are unchanged. C3-C4: Disc osteophyte mildly indents the ventral thecal sac. There is bilateral facet arthropathy. No significant central canal stenosis and no foraminal stenosis. C4-C5: A small central disc protrusion mildly indents the ventral thecal sac. Uncovertebral joint spurring and facet arthropathy result in worsening mild to moderate left-sided foraminal stenosis. C5-C6: Uncovertebral joint spurring and facet arthropathy result in worsening mild to moderate right-sided foraminal stenosis. No central canal and no left foraminal stenosis. Bilateral facet arthropathy. C6-C7: Slight annular disc bulge. Left greater then right facet arthropathy. No central canal stenosis. Mild foraminal encroachment bilaterally. C7-T1: Disc contour is normal. No central canal stenosis and no foraminal stenosis. IMPRESSION: - Multilevel cervical spondylosis. Spondylitic changes result in progressive mild to moderate left C4-C5 and progressive mild to moderate right C5-C6 foraminal stenosis. There is no severe central canal stenosis within the cervical spine. - Partially imaged multinodular thyroid gland is again noted which has been recently evaluated with thyroid ultrasound. NE electromyogram (EMG); NE nerve conduction velocity 04/17/24 FINDINGS: All motor and sensory nerves tested showed normal latencies, amplitudes and conduction velocities. Concentric needle EMG was performed in selected muscles of the bilateral upper extremities. Study did not reveal signs of electric abnormalities as shown in the table above. IMPRESSION: 1. This is a normal study. 2. There is no electrodiagnostic evidence for median neuropathy, ulnar neuropathy, brachial plexopathy, or cervical radiculopathy. LEFT SHOULDER 4 view 06/14/24 Comparison: CR/OK/SR - XR SHOULDER LT MIN 2V - 11/01/21 15:06 EDT Findings: No fractures or dislocations. Cfzl-qf-[id number] osteoarthritic changes of the AC joint. No erosions. No radiopaque foreign body. IMPRESSION: No acute findings XR KNEE AP STANDING XR KNEE, LEFT and RIGHT 07/24/22 CLINICAL INFORMATION: Pain. COMPARISON: Radiographs dated 06/13/2021. TECHNIQUE: AP bilateral standing view of the knees was obtained. Lateral and axial views of the left knee were obtained. FINDINGS: Bony alignment and mineralization are normal. The bilateral lateral and medial joint space compartments are symmetric and well-maintained. There is very mild peripheral osteophyte formation of the medial joint space compartment. No significant varus or valgus configuration is seen. The left patellofemoral compartment is well-maintained, and there is no left knee joint effusion. No foreign body is seen. IMPRESSION: 1. There is minimal osteoarthritic change of the medial joint space compartments of the bilateral knees. 2. No fracture, dislocation or joint effusion is seen. Assessment & Plan Assessment & Plan (1) Left shoulder pain: Code(s): M25.512 - Pain in left shoulder Category: Medical (2) Cervical spondylosis: Code(s): M47.812 - Spondylosis without myelopathy or radiculopathy, cervical region Category: Medical (3) Right knee pain: Code(s): M25.561 - Pain in right knee Category: Medical (4) Osteoarthritis of right knee: Code(s): M17.11 - Unilateral primary osteoarthritis, right knee Category: Medical Plan We have addressed the patient's knee pain with a diagnostic right femoral nerve block which provided 24 hours temporary good pain relief with improved functioning, mobility and sleep. She is interested to proceed with peripheral nerve stimulation as next steps. Schedule Right Femoral Nerve Sprint PNS placement with local, oral Ativan and fluoroscopy. Expectations, risks and benefits were reviewed. Patient is aware she will be contacted to schedule this procedure. For her left shoulder pain with confirmed mild to moderate AC joint arthritis, a steroid injection with fluoroscopy guidance was scheduled on 11/04/24 to reduce pain and improve function. She is also planning to undergo Sprint PNS for her chronic neck pain with anticipation of passing behavioral assessment clearance through [facility] per her insurance requirement. All questions and concerns have been answered and patient agreed with the plan. Follow up after Sprint PNS placement and sooner as needed. Patient was informed and verbally consented to the use of an ambient scribe for clinic note documentation during this visit. Coding Level of Care Code Est Pt Level 4 (58504) Complex EM visit Add On G2211 Diagnoses Left shoulder pain M25.512 Cervical spondylosis M47.812 Right knee pain M25.561 Osteoarthritis of right knee M17.11
[2024-09-19 08:55] VITALS: BP 129/62; PULSE 54; RESP 16; O2SAT 100; BMI 22.3
--- OUTSIDE RECORDS SUMMARY | 2024-09-19 09:06 | XMS_ITS | Encounter Summary ---
Author Organization [employer] Address [address] [address] [place] [address] Care Team Providers Care Quality Management Nurse Name Role Phone [facility] Primary Care Provider [phone] Reason for Visit * Reason Comments Med Refill Encounter Details Date Type Department Care Team ([facility] st Contact Info) Description 08/19/2023 Refill [facility] [address] [place] [address] [facility] [address] [place] [address] Fibromyalgia Social History Tobacco Use Types Packs/Day [...] Description 09/24/2024 2:00 PM EDT Office Visit [facility] [address] [place] [address] Tierney Goncalves FNP [address] [place] [address] documented as of this encounter Visit Diagnoses Diagnosis Fibromyalgia Unspecified myalgia and myositis documented in this encounter Additional Health Concerns Assessment Noted Time PHQ-9 Depression Total Score: 0 05/16/19 24 3:22 PM EST documented as of this encounter Care Teams Quality Management Nurse Relationship Specialty Start Date End Date Tierney Goncalves FNP [address] [place] [id number] PCP - General Family Medicine 12/27/21 documented as of this encounter
== END 2024-09-19 09:14 | disposition home or self-care (01) ==
LOC: HO.PMC 08:48
PROVIDERS: PCP Registered Nurse; Visit Provider Nurse Practitioner Family
DX: M25.512 Pain in left shoulder (principal); M47.812 Spondylosis without myelopathy or radiculopathy, cervical region; M25.561 Pain in right knee; M17.11 Unilateral primary osteoarthritis, right knee
CPT/HCPCS: 99214

== ENCOUNTER → 2024-09-19 08:47 | Outpatient (BNVA) | payer OTHER, SELFPAY | PROVIDERS: PCP Registered Nurse; Visit Provider Nurse Practitioner Family ==

== ENCOUNTER → 2024-10-02 07:43 | Outpatient (BNV) | payer OTHER, SELFPAY | PROVIDERS: PCP Registered Nurse; Visit Provider Radiology Diagnostic Radiology | DX: M47.816 Spondylosis without myelopathy or radiculopathy, lumbar region (principal) | CPT/HCPCS: 72148 ==

== ENCOUNTER 2024-10-02 08:00 | Outpatient (REF) | payer OTHER, SELFPAY ==
--- NOTE | ~2024-10-02 | MR_ITS ---
EXAMINATION: MR LUMBAR SPINE WITHOUT CONTRAST CLINICAL INFORMATION: Please evaluate grade 1-2 spondylolisthesis of L5-S1 noted on recent x-ray. Patient complaining of chronic low back pain with shooting pain traveling down bilateral legs. COMPARISON: Prior lumbar spine 10/18/2015 is not available for comparison. Correlation made with lumbar spine radiographs 09/17/2024. TECHNIQUE: Multiplanar multisequence MR imaging of the lumbar spine was done without IV contrast. Examination was performed on a 1.5 Roxy Siemens magnet, utilizing standard sequences. FINDINGS: CORONAL ALIGNMENT: -There is a gentle thoracolumbar levoconvex scoliosis, apex at L1 SAGITTAL ALIGNMENT: -There is a 5 mm degenerative anterolisthesis of L5 on S1. There are no definite pars defects. There is sclerosis and edema within both pars interarticularis and L5-S1 facets, indicating stress response. -There is a trace 2 mm degenerative anterolisthesis of L4 on L5. -There is no additional subluxation. LUMBOSACRAL JUNCTION: -Normal. There are 5 rcx-mbg-joeaaxy lumbar-type vertebral bodies. VERTEBRAL BODIES/BONE MARROW: -There are minimal edematous type endplate changes present at L5-S1. There is edema within the L5 pedicles right greater than left, extending into the L5-S1 facet joints bilaterally, likely indicating stress response/degenerative response. -No additional abnormal bone marrow edema, or abnormal infiltrating bone marrow signal is evident. No compression deformity, acute fracture, or traumatic subluxation is evident. DISCS: -There is mild loss of disc height and signal at L4-5 and to a slightly larger degree at L5-S1. Remainder of the intervertebral discs appear grossly normal. SPINAL CANAL: -No abnormal developmental findings. CONUS MEDULLARIS: -Terminates at inferior endplate L1. Morphology and signal is normal. INTRADURAL NERVE ROOTS: - Normal appearance. No nerve root clumping or mass. Axial Disc Space Images: T12-L1: No central canal or neural foraminal narrowing. Normal facets. L1-L2: No central canal or neural foraminal narrowing. Normal facets. L2-L3: Shallow diffuse disc bulge present, without significant mass effect upon the thecal sac. Mild degenerative facet changes bilaterally with mild posterior ligamentous thickening/infolding. There is minimal central canal narrowing, minimal left subarticular recess narrowing, and minimal bilateral neural foraminal narrowing. L3-L4: There are bilateral small foraminal disc protrusions. There is mild hypertrophic degenerative facet changes bilaterally, with mild posterior ligamentous thickening/infolding. There is no significant central canal or lateral recess stenosis. There is mild bilateral neural foraminal narrowing. L4-L5: Minimal disc uncovering secondary to a minimal anterolisthesis. No significant disc pathology is evident. Mild to moderate degenerative facet changes right greater than left, with the right facet joint effusion. There is posterior ligamentous infolding/thickening. There is minimal central canal narrowing, minimal bilateral subarticular recess narrowing, and mild bilateral neural foraminal stenosis. L5-S1: Severe degenerative facet changes bilaterally with bilateral facet joint effusions, osteophytic spurring, and bone marrow edema. There is mild posterior ligamentous thickening. There is disc uncovering secondary to 5 mm anterolisthesis. There is no significant central canal narrowing. There is mild bilateral subarticular recess narrowing. There is moderate left greater than right neural foraminal narrowing with contact but no definite impingement of the exiting L5 roots. IMAGED SI JOINTS: -Mild degenerative change bilaterally. PARAVERTEBRAL AND INCLUDED EXTRASPINAL SOFT TISSUES: -Retroaortic left renal vein. Normal caliber aorta. -Normal-appearing kidneys. -Paraspinal and paravertebral soft tissues appear normal. MR/MR lumbar spine wo con IMPRESSION: 1. There is a 5 mm anterolisthesis of L5 on S1, which appears degenerative in nature secondary to degenerative disc and severe degenerative facet changes. There is edema within the endplates, extending into the pedicles and facet joints at this level, likely degenerative/stress response. There is moderate bilateral neural foraminal stenosis at this level with mild mass effect upon the exiting L5 roots. 2. There are mild degenerative disc and facet changes at L4-5. 3. There is no additional evidence of significant central canal, subarticular recess, or neural foraminal narrowing at any level. 4. See the body the report for ancillary findings and details. Electronically signed by: Ismael Thompson MD 10/02/2024 09:15 AM EDT
--- OUTSIDE RECORDS SUMMARY | 2024-10-02 08:04 | XMS_ITS | Encounter Summary ---
Author Organization [employer] Address [address] [facility] [address] [place] [address] Care Team Providers Care Office Associate Name Role Phone [facility] Primary Care Provider [phone] Reason for Visit * Reason Comments Med Refill Encounter Details Date Type Department Care Team ([facility] st Contact Info) Description 08/19/2023 Refill [facility] [address] [place], [place] [id number] [employer] [address] [place] [address] Fibromyalgia Social History Tobacco Use Types Packs/Day [...] documented as of this encounter Care Teams Office Associate Relationship Specialty Start Date End Date Tierney Goncalves FNP [address] [place] [id number] PCP - General Family Medicine 12/27/21 documented as of this encounter
== END 2024-10-02 08:01 | disposition home or self-care (01) ==
LOC: HO.MRI 08:00
PROVIDERS: PCP Registered Nurse; Visit Provider Nurse Practitioner Family
DX: M43.17 Spondylolisthesis, lumbosacral region (principal); M54.50 Low back pain, unspecified; G89.29 Other chronic pain; M47.816 Spondylosis without myelopathy or radiculopathy, lumbar region
CPT/HCPCS: 72148

== ENCOUNTER 2024-10-07 13:45 | Outpatient (AMB) | payer OTHER, SELFPAY ==
--- NOTE | 2024-10-07 13:47 | A.OFFVIS_ITS ---
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 The pain predominantly affects the lower spine and is exacerbated by activities and sitting. Her pain stems from severe degenerative arthritis and lumbar disc degeneration at L5-S1, leading to nerve root compression. The chronic pain radiates to the buttocks and posterior leg, impacting her daily activities and sleep. Weather changes further exacerbate her condition. The patient engages in minimal physical activity and denies recent trauma contributing to the pain's onset. Her functional status is impaired due to the pain, with incidents of leg instability. Previous interventions like spinal injections (diagnostic lumbar medial branch blocks, therapeutic hip and SI joint injections, and ESIs) and attempts at spinal cord stimulation offered minimal relief. Reports incontinence episodes and 1 recent bowel incontinence during [id number] low back pain upon getting and walking. Patient request neurosurgical evaluation to address her disabling low back pain. She also suffers from chronic arthritic neck pain and awaits psychological clearance from [facility] to proceed with Sprint PNS trial to address her neck pain. Denies any recent cough, cold, infection, fever or any other significant changes in medical history since last office visit. - Affect: Reports significant impact on mood and mobility; disturbances in sleep - Analgesia: Previous spinal injections provided short-term relief; ongoing chronic pain - Adverse Effects: None from medication mentioned; notes issues with instability and balance due to pain - Activities of Daily Living: Difficulty with mobility, particularly stair climbing; uses shopping cart for stability while grocery shopping - Aberrant Drug-Related Behaviors: None reported PRIOR: The patient is a 64-year-old female presenting with persistent right knee pain. An ultrasound-guided femoral nerve block was performed by Dr. Azul, which provided 80% relief on the day of the injection but did not extend beyond 24 hours. The patient experienced temporary reduction in pain levels to 2/10 but returned to higher pain levels the following mid day. She continually experiences right knee pain, which has been the primary focus of this visit. The patient also reports episodic neck pain, characterized mainly as uncomfortable. The patient has expressed concern about tingling and numbness and has an upcoming EMG scheduled to further assess these symptoms. For the left shoulder pain, an injection with fluoroscopic guidance has been set in October. Future management will include potential Sprint PNS therapy, and for the neck issue, treatments are being prepared. - Onset: Chronic knee pain, with specific focus on right knee pain addressed by nerve block. - Quality and Character: Described as resistant to earlier pain management but responsive to initial procedural intervention. - Primary Location: Right knee; occasional reports of neck discomfort and shoulder pain. - Exacerbating Factors: Ongoing activity likely exacerbates the knee pain. - Relieving Factors: Nerve block provided temporary relief; subsequent oral medications (Tylenol) and diclofenac gel offered minimal relief. - Interference: Pain impacts daily functioning, necessitating ongoing management strategies. - Affect: Discussed management of knee and neck pain; impact on patient's overall mood not explicitly detailed. - Analgesia: Nerve block successfully reduced pain to 2/10 for 24 hours; additional oral medications provided slight relief following initial intervention. - Adverse Effects: None discussed related to pain medication. - Activities of Daily Living: Knee pain primarily affects daily activities, leading to consultations for enhanced intervention. - Aberrant Drug Related Behaviors: None reported or discussed. Past Procedures: 09/12/24: Right diagnostic femoral nerve block under sedation-80% pain relief for 24 hours 08/26/24: Bilateral Diagnostic C4-C5-C6 MBB-80-90% pain relief for 6 hours [facility] Medical History Cervical high risk HPV (human papillomavirus) test positive Fibromyalgia Elevated cholesterol Weight loss Karina's disease Non-toxic multinodular goiter Osteoarthritis of left hip Schatzki's ring Hiatal hernia Hx of migraines History of multinodular goiter IBS (irritable bowel syndrome) GERD (gastroesophageal reflux disease) Dysphagia Chronic pain syndrome Spondylosis, lumbar, with myelopathy Sacroiliitis Surgical History History of bilateral tubal ligation Hx of dilation and curettage Hx of arthroscopy of right knee History of esophagogastroduodenoscopy (EGD) Hx of colonoscopy History of cholecystectomy Family History Father Unknown family medical history Mother Arthritis Diverticulitis Gastritis Breast cancer Chronic asthma Adenomatous colon polyp HTN (hypertension) Maternal Grandmother Colon cancer Daughter Hypothyroid Daughter Traveling blood clot in leg Obesity Prediabetes Social History Household Members: Spouse Housing: House Are you a primary health care legal assistant to a significant other at home: No Do you presently have visiting nurse or other home services: No Alcohol intake: never Patient Tobacco Use Status: Former Tobacco user Tobacco use type: Cigarette Years Smoked: 18 service: No Current occupational status: employed 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 Reports incontinence episodes and 1 recent bowel incontinence during [id number]-[id number] low back pain upon getting up. All systems reviewed & are unremarkable except as noted in HPI and below Physical Exam Vital Signs: Last Vital Signs Pulse 56 10/07/24 13:50 BP 108/58 L 10/07/24 13:50 Pulse Ox 98 10/07/24 13:50 Oxygen Delivery Method Room Air 10/07/24 13:50 BMI result Body Mass Index 22.3 General: Appears afebrile. Alert and oriented. Mood and affect appropriate. Follows and participates in conversation appropriately. Respiratory effort is unlabored. No cough. Able to transition from sit to stand unassisted. Ambulates with bilaterally normal heel strike and toe off. Neck Neck: Yes no lymphadenopathy, No anterior neck swelling, Yes no JVD and No prominent dorsocervical fat pad Back/Spine/Pelvis Cervical Spine: No Lhermitte's sign positive, loss of normal cervical lordosis, cervical muscular tenderness, pain with cervical ROM, cervical spasm (left>right), No Cervical spine tenderness and No step off deformity Thoracic/Lumbar Spine: thoracic and lumbar spine normal to inspection, Lasegue's sign positive bilateral and localized, pain with thoraco-lumbar ROM, paraspinal muscle tenderness, thoraco-lumbar ROM limited, No thoracic spinal tenderness, lumbar spinal tenderness (L3-S1) and straight leg raise positive bilateral at 40 degrees Pelvis: buttock tenderness bilaterally and sciatic notch tenderness bilateral Sacroiliac joints: bilaterally tender to palpation Neuro General: CN's II-XI intact bilaterally Gait exam (Neuro): Antalgic gait present and Assistive device used Motor exam (neuro): 5/5 motor strength present throughout (4/5 RLE), Pronator motor function not present and no tremor noted Extrem General: Yes capillary refill normal, Yes no clubbing, cyanosis or edema and Yes no calf tenderness Left lower extremity: knee (Limited ROM due to pain) Details: normal to inspection, tenderness Location: of the medial joint line and of the lateral joint line and crepitus; no swelling, no ecchymosis and no unusual warmth Results Reviewed Results Reviewed: MR LUMBAR SPINE WITHOUT CONTRAST 10/02/24 CLINICAL INFORMATION: Please evaluate grade 1-2 spondylolisthesis of L5-S1 noted on recent x-ray. Patient complaining of chronic low back pain with shooting pain traveling down bilateral legs. COMPARISON: Prior lumbar spine 10/18/2015 is not available for comparison. Correlation made with lumbar spine radiographs 09/17/2024. TECHNIQUE: Multiplanar multisequence MR imaging of the lumbar spine was done without IV contrast. Examination was performed on a 1.5 Roxy Siemens magnet, utilizing standard sequences. FINDINGS: CORONAL ALIGNMENT: -There is a gentle thoracolumbar levoconvex scoliosis, apex at L1 SAGITTAL ALIGNMENT: -There is a 5 mm degenerative anterolisthesis of L5 on S1. There are no definite pars defects. There is sclerosis and edema within both pars interarticularis and L5-S1 facets, indicating stress response. -There is a trace 2 mm degenerative anterolisthesis of L4 on L5. -There is no additional subluxation. LUMBOSACRAL JUNCTION: -Normal. There are 5 [id number]-sdl-[id number] lumbar-type vertebral bodies. VERTEBRAL BODIES/BONE MARROW: -There are minimal edematous type endplate changes present at L5-S1. There is edema within the L5 pedicles right greater than left, extending into the L5-S1 facet joints bilaterally, likely indicating stress response/degenerative response. -No additional abnormal bone marrow edema, or abnormal infiltrating bone marrow signal is evident. No compression deformity, acute fracture, or traumatic subluxation is evident. DISCS: -There is mild loss of disc height and signal at L4-5 and to a slightly larger degree at L5-S1. Remainder of the intervertebral discs appear grossly normal. SPINAL CANAL: -No abnormal developmental findings. CONUS MEDULLARIS: -Terminates at inferior endplate L1. Morphology and signal is normal. INTRADURAL NERVE ROOTS: - Normal appearance. No nerve root clumping or mass. Axial Disc Space Images: T12-L1: No central canal or neural foraminal narrowing. Normal facets. L1-L2: No central canal or neural foraminal narrowing. Normal facets. L2-L3: Shallow diffuse disc bulge present, without significant mass effect upon the thecal sac. Mild degenerative facet changes bilaterally with mild posterior ligamentous thickening/infolding. There is minimal central canal narrowing, minimal left subarticular recess narrowing, and minimal bilateral neural foraminal narrowing. L3-L4: There are bilateral small foraminal disc protrusions. There is mild hypertrophic degenerative facet changes bilaterally, with mild posterior ligamentous thickening/infolding. There is no significant central canal or lateral recess stenosis. There is mild bilateral neural foraminal narrowing. L4-L5: Minimal disc uncovering secondary to a minimal anterolisthesis. No significant disc pathology is evident. Mild to moderate degenerative facet changes right greater than left, with the right facet joint effusion. There is posterior ligamentous infolding/thickening. There is minimal central canal narrowing, minimal bilateral subarticular recess narrowing, and mild bilateral neural foraminal stenosis. L5-S1: Severe degenerative facet changes bilaterally with bilateral facet joint effusions, osteophytic spurring, and bone marrow edema. There is mild posterior ligamentous thickening. There is disc uncovering secondary to 5 mm anterolisthesis. There is no significant central canal narrowing. There is mild bilateral subarticular recess narrowing. There is moderate left greater than right neural foraminal narrowing with contact but no definite impingement of the exiting L5 roots. IMAGED SI JOINTS: -Mild degenerative change bilaterally. PARAVERTEBRAL AND INCLUDED EXTRASPINAL SOFT TISSUES: -Retroaortic left renal vein. Normal caliber aorta. -Normal-appearing kidneys. -Paraspinal and paravertebral soft tissues appear normal. IMPRESSION: 1. There is a 5 mm anterolisthesis of L5 on S1, which appears degenerative in nature secondary to degenerative disc and severe degenerative facet changes. There is edema within the endplates, extending into the pedicles and facet joints at this level, likely degenerative/stress response. There is moderate bilateral neural foraminal stenosis at this level with mild mass effect upon the exiting L5 roots. 2. There are mild degenerative disc and facet changes at L4-5. 3. There is no additional evidence of significant central canal, subarticular recess, or neural foraminal narrowing at any level. 4. See the body the report for ancillary findings and details. XR LUMBAR SPINE 4 OR MORE VIEWS 09/17/24 HISTORY: M54.50 - Low back pain, unspecified COMPARISON: Comparison is made with the prior examination dated 10/17/2017. FINDINGS: AP, lateral, bilateral oblique and coned down views of the lumbar spine are submitted. Osseous mineralization is normal. Five nonrib-bearing lumbar vertebral bodies are identified, maintaining normal height without evidence of fracture. There is grade I-II spondylolisthesis of L5 on S1. The intervertebral disc spaces are preserved. There is osteoarthritis of the lower lumbar facet joints. There is no spondylolysis. There are surgical clips in the right upper quadrant. IMPRESSION: Grade I-II spondylolisthesis of L5 on S1. Osteoarthritis of the lower lumbar facet joints. Assessment & Plan Assessment & Plan (1) Spondylolisthesis, lumbosacral region: Code(s): M43.17 - Spondylolisthesis, lumbosacral region Category: Medical (2) Neuroforaminal stenosis of lumbosacral spine: Code(s): M48.07 - Spinal stenosis, lumbosacral region Category: Medical (3) Chronic low back pain: Code(s): M54.50 - Low back pain, unspecified; G89.29 - Other chronic pain Category: Medical (4) Lumbar spondylosis: Code(s): M47.816 - Spondylosis without myelopathy or radiculopathy, lumbar region Category: Medical (5) Sacroiliitis: Code(s): M46.1 - Sacroiliitis, not elsewhere classified Category: Medical (6) Osteoarthritis of right knee: Code(s): M17.11 - Unilateral primary osteoarthritis, right knee Category: Medical (7) Chronic pain syndrome: Code(s): G89.4 - Chronic pain syndrome Category: Medical Plan The patient was informed about the current evaluation of her severe degenerative arthritis and lumbar disc degeneration at L5-S1, contributing to nerve compression and chronic pain. Due to persistent pain and instability with urine incontinence episodes during severe back pain episodes, a referral to a [facility] rosurgeon for further evaluation. Patient is aware that neurosurgical office will reach out to the patient for an appointment. Options for pain management were discussed, taking into account the patient's history with injections and her structural and functional status. A focus on specialized intervention is advised to address the structural issues and improve her quality of life. Patient is aware to call if pain worsens or if she develops any red flag symptoms to seek emergency care. Avoid activities that exacerbate back or leg pain. All questions and concerns have been answered and patient agrees with the treatment plan. Follow-up as needed. Patient was informed and verbally consented to the use of an ambient scribe for clinic note documentation during this visit. Orders: Referrals Neuro Spine Referral M43.17 - Spondylolisthesis, lumbosacral region, M48.07 - Spinal stenosis, lumbosacral region Coding Level of Care Code Est Pt Level 4 (09174) Complex EM visit Add On G2211 Diagnoses Spondylolisthesis, lumbosacral region M43.17 Neuroforaminal stenosis of lumbosacral spine M48.07 Chronic low back pain M54.50; G89.29 Lumbar spondylosis M47.816 Sacroiliitis M46.1 Osteoarthritis of right knee M17.11 Chronic pain syndrome G89.4
[2024-10-07 13:50] VITALS: BP 108/58; PULSE 56; O2SAT 98; BMI 22.3
--- OUTSIDE RECORDS SUMMARY | 2024-10-07 16:16 | XMS_ITS | Encounter Summary ---
Author Organization [employer] Address [address] [facility] [address] [place] [address] Care Team Providers Care Television News Reporter Name Role Phone [facility] Primary Care Provider [phone] Reason for Visit * Reason Comments Med Refill Encounter Details Date Type Department Care Team ([facility] st Contact Info) Description 08/19/2023 Refill [facility] [address] [place], [place] [id number] [facility] [address] [place] [address] Fibromyalgia Social History Tobacco Use Types Packs/Day [...] documented as of this encounter Care Teams Television News Reporter Relationship Specialty Start Date End Date Tierney Goncalves FNP [address] [place] [id number] PCP - General Family Medicine 12/27/21 documented as of this encounter
== END 2024-10-07 14:29 | disposition home or self-care (01) ==
LOC: HO.PMC 13:45
PROVIDERS: PCP Registered Nurse; Visit Provider Nurse Practitioner Family
DX: M43.17 Spondylolisthesis, lumbosacral region (principal); M48.07 Spinal stenosis, lumbosacral region; M54.50 Low back pain, unspecified; G89.29 Other chronic pain; M47.816 Spondylosis without myelopathy or radiculopathy, lumbar region; M46.1 Sacroiliitis, not elsewhere classified; M17.11 Unilateral primary osteoarthritis, right knee; G89.4 Chronic pain syndrome
CPT/HCPCS: 99214; G2211

== ENCOUNTER 2024-10-08 08:20 | Outpatient (REF) | payer OTHER, SELFPAY ==
--- NOTE | 2024-10-08 08:28 | EMG_ITS ---
Chief complaint: bilateral hand numbness, told to have mild Carpal Tunnel Syndrome in the past, no surgeries yet Reason for referral: Evaluate for Carpal Tunnel Syndrome Referred by: Carroll DAVALOS Procedure done: bilateral upper extremities NCS/EMG Precautions and/or limitations: none The limb temperature was monitored continuously and remained between 32-36 degrees C during the performance of the NCS. Nerve Conduction Studies Anti Sensory Summary Table ?Stim Site NR Onset (ms) Norm Onset (ms) Peak (ms) Norm Peak (ms) O-P Amp (?V) Norm O-P Amp Site1 Site2 Delta-0 (ms) Dist (cm) Timmy (m/s) Norm Timmy (m/s) Left Median Anti Sensory (2nd Digit) Wrist ? 3.2 3.9 <3.6 10.7 >10 Wrist 2nd Digit 3.2 14.0 44 Right Median Anti Sensory (2nd Digit) Wrist ? 3.1 3.9 <3.6 18.0 >10 Wrist 2nd Digit 3.1 14.0 45 Left Ulnar Anti Sensory (5th Digit) Wrist ? 2.6 3.4 <3.7 38.6 >15.0 Wrist 5th Digit 2.6 14.0 54 Right Ulnar Anti Sensory (5th Digit) Wrist ? 3.0 3.7 <3.7 22.8 >15.0 Wrist 5th Digit 3.0 14.0 47 Motor Summary Table ?Stim Site NR Onset (ms) Norm Onset (ms) O-P Amp (mV) Norm O-P Amp iAmp (mV) Amp (1st) (%) Site1 Site2 Delta-0 (ms) Dist (cm) Timmy (m/s) Norm Timmy (m/s) Left Median Motor (Abd Poll Brev) Wrist ? 3.7 <3.9 9.6 >4.5 11.5 100.0 Elbow Wrist 4.3 21.0 49 >45 Elbow ? 8.0 9.1 10.7 94.8 Right Median Motor (Abd Poll Brev) Wrist ? 3.7 <3.9 9.6 >4.5 11.1 100.0 Elbow Wrist 4.3 21.0 49 >45 Elbow ? 8.0 9.1 10.6 94.8 Left Ulnar Motor (Abd Dig Minimi) Wrist ? 2.7 <3.0 9.9 >5 12.8 100.0 B Elbow Wrist 3.4 19.0 56 >45 B Elbow ? 6.1 8.6 11.0 86.9 A Elbow B Elbow 1.7 10.0 59 >45 A Elbow ? 7.8 8.2 10.3 82.8 Right Ulnar Motor (Abd Dig Minimi) Wrist ? 3.0 <3.0 10.9 >5 13.9 100.0 B Elbow Wrist 3.8 20.0 53 >45 B Elbow ? 6.8 10.5 13.6 96.3 A Elbow B Elbow 1.5 10.0 67 >45 A Elbow ? 8.3 10.0 13.2 91.7 Comparison Summary Table ?Stim Site NR Peak (ms) Norm Peak (ms) P-T Amp (?V) Site1 Site2 Delta-P (ms) Norm Delta (ms) Right Median/Radial Dig I Comparison (Digit 1 - 10cm) Median ? 3.0 <2.9 66.9 Median Radial 1.5 Radial ? 1.5 <2.8 27.9 EMG ?Side Muscle Nerve Root Ins Act Fibs Psw Amp Dur Poly Recrt Int Pat Comment Right 1stDorInt Ulnar C8-T1 Nml Nml Nml Nml Nml 0 Nml Complete Right FlexCarRad Median C6-7 Nml Nml Nml Nml Nml 0 Nml Complete Right Biceps Musculocut C5-6 Nml Nml Nml Nml Nml 0 Nml Complete Right Triceps Radial C6-7-8 Nml Nml Nml Nml Nml 0 Nml Complete Right Deltoid Axillary C5-6 Nml Nml Nml Nml Nml 0 Nml Complete Left 1stDorInt Ulnar C8-T1 Nml Nml Nml Nml Nml 0 Nml Complete Left FlexCarRad Median C6-7 Nml Nml Nml Nml Nml 0 Nml Complete Left Biceps Musculocut C5-6 Nml Nml Nml Nml Nml 0 Nml Complete Left Triceps Radial C6-7-8 Nml Nml Nml Nml Nml 0 Nml Complete Left Deltoid Axillary C5-6 Nml Nml Nml Nml Nml 0 Nml Complete FINDINGS: Bilateral median sensory nerve showed prolonged peak latencies. Significant interlatency difference seen between right median and radial sensory nerves. Concentric needle EMG was performed in selected muscles of the right upper extremity. Study did not reveal signs of electric abnormalities as shown in the table above. IMPRESSION: 1. This is an abnormal study. 2. There is electrodiagnostic evidence for bilateral mild median neuropathy at the wrist, consistent with carpal tunnel syndrome. 3. There is no electrodiagnostic evidence for ulnar neuropathy, brachial plexopathy, or cervical radiculopathy. Thank you for your kind referral. Chanda Castaneda MD, LAKISHA Board Certified, [place] [employer] and [employer] (ABPMR) Board Certified, [place] Board [employer] Electrodiagnostic [employer] (ABEM) CODIN [phone] x 2 MTDD
--- OUTSIDE RECORDS SUMMARY | 2024-10-08 08:29 | XMS_ITS | Encounter Summary ---
Author Organization [employer] Address [address] [facility] [address] [place] [address] Care Team Providers Care Sdet Name Role Phone [facility] Primary Care Provider [phone] Reason for Visit * Reason Comments Med Refill Encounter Details Date Type Department Care Team ([facility] st Contact Info) Description 08/19/2023 Refill [facility] [address] [place] [address] [facility] [address] [place] [address] Fibromyalgia Social History Tobacco Use Types Packs/Day [...] documented as of this encounter Care Teams Sdet Relationship Specialty Start Date End Date Tierney Goncalves FNP [address] [place] [id number] PCP - General Family Medicine 12/27/21 documented as of this encounter
== END 2024-10-08 08:21 | disposition home or self-care (01) ==
LOC: HO.NEURO 08:20
PROVIDERS: PCP Registered Nurse
DX: R20.0 Anesthesia of skin (principal); R20.2 Paresthesia of skin; R94.131 Abnormal electromyogram [EMG]
CPT/HCPCS: 95886; 95911

== ENCOUNTER → 2024-10-08 08:28 | Outpatient (BNV) | payer OTHER, SELFPAY | PROVIDERS: PCP Registered Nurse; Visit Provider Physical Medicine & Rehabilitation | DX: G56.03 Carpal tunnel syndrome, bilateral upper limbs (principal) | CPT/HCPCS: 95886; 95911 ==

== ENCOUNTER 2024-10-13 08:38 | Outpatient (AMB) | payer OTHER, SELFPAY ==
--- NOTE | 2024-10-13 08:48 | HO.SPINEOV ---
Vital Signs 10/13/24 08:58 Height 5 ft 3 in Weight 126 lb BMI 22.3 Intake Visit Reasons: LBP Intake Note: Ms. Flynn is here today c/o Low back pain. Manager Architectural Required: No Allergies No Known Allergies [No Known Allergies*] Allergy (Verified 10/13/24 08:58) Physical Exam Vital Signs: BMI result Body Mass Index 22.3 Assessment & Plan Assessment & Plan (1) Chronic low back pain: Code(s): M54.50 - Low back pain, unspecified; G89.29 - Other chronic pain Category: Medical Plan Dear Kanika, Thank you for referring Mrs Flynn to our office today. She is a very nice 64-year-old female comes in today for evaluation of chronic low back pain. It centered around the lower lumbar region radiates out to the side. 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 She has been through rigorous amounts of conservative treatment including physical therapy few years ago, acupuncture. She takes Tylenol on a regular basis. The pain is particularly bad when she is sitting, not quite as bad when she is standing and walking. Getting up from a chair is difficult. She underwent a number of injections including medial branch blocks, SI joint injections etc.. Nothing helped, not even for few days. She is being considered for spinal cord stimulator but apparently there was some delay with the insurance company. She comes in today with an MRI showing facet arthropathy and degenerative disc disease at L5-S1 on the report. PMH: Otherwise healthy, she had a hiatal hernia repair Social hx: Quit smoking and drinking 20 years ago, she does not smoke any marijuana or use any recreational drugs Medications: Tylenol, multivitamin Allergies: None Physical exam: Awake alert oriented no acute distress, strength and reflexes are normal Imaging review: Lumbar MRI report suggests she has degenerative disc disease at L5-S1 with spondylolisthesis, and severe facet arthropathy. It also suggests there is edema within the endplates. I looked through all of her imaging and I am not really seeing this degree of severe degeneration of the spine. Her disc height and disc quality actually looks fairly good. There is a slight spondylolisthesis, If there is any endplate edema, it is subtle and it is not overwhelming, primarily in the anterior portion of the endplates. She does have significant facet arthropathy, I think best seen on the CT scan she had done of her abdomen in the coronal plane. She does not have a pars defect. Impression: 64-year-old female presents for evaluation of chronic low back pain of unclear etiology. I think the radiology report overestimates the amount of discogenic disease that she has an endplate edema. The main thing I am seeing is some facet arthropathy, which is significant, however she did not respond to the median branch blocks at all. So I am not sure how to put this in context of whether or not it is the source of her pain. Maybe it is worth repeating an injection into the joint. Without some kind of response diagnostically from some of these injections in the area, it is hard to offer her surgery, which usually comes in the form of lumbar fusion. I showed her her MRI and explained all this to her and her family member. I am wondering if you should not reconsider the option of a spinal cord stimulator again. They seemed more open to it after I explained to them that the option of spinal fusion surgery would not guarantee complete pain relief. Thank you for allowing us to care for your patient. The total time spent with this visit with this patient was 45 minutes reviewing history, physical exam, lumbar imaging review, and implementation of treatment plan or further diagnostic testing Eric Isidro MD,PhD [facility] Coding Level of Care Code New Pt Level 4 (37494) Diagnoses Chronic low back pain M54.50; G89.29
[2024-10-13 08:58] VITALS: BMI 22.3
--- OUTSIDE RECORDS SUMMARY | 2024-10-13 09:03 | XMS_ITS | Encounter Summary ---
Author Organization [employer] Address [address] [place] [address] Care Team Providers Care Cooper Helper Name Role Phone [facility] Primary Care Provider [phone] Reason for Visit * Reason Comments Med Refill Encounter Details Date Type Department Care Team ([facility] st Contact Info) Description 08/19/2023 Refill [facility] [address] [place], [place] [phone] [facility] [address] [place] [address] Fibromyalgia Social History Tobacco Use Types Packs/Day [...] documented as of this encounter Care Teams Cooper Helper Relationship Specialty Start Date End Date Tierney Goncalves FNP [address] [place] [id number] PCP - General Family Medicine 12/27/21 documented as of this encounter
== END 2024-10-13 09:57 | disposition home or self-care (01) ==
LOC: HO.HNS 08:38
PROVIDERS: PCP Registered Nurse; Referring Provider Nurse Practitioner Family; Visit Provider Physician Assistant
DX: M54.50 Low back pain, unspecified (principal); G89.29 Other chronic pain
CPT/HCPCS: 99204

== ENCOUNTER 2024-10-15 09:04 | Outpatient (AMB) | payer OTHER, SELFPAY ==
--- NOTE | 2024-10-15 09:09 | MHC.OFFVIS ---
Vital Signs 10/15/24 09:10 Height 5 ft 3 in Weight 126 lb BMI 22.3 BP 120/60 Blood Pressure Location Rt brachial Position Sitting Pulse 54 Pulse Source Pulse Oximeter Pulse Oximetry (%) 99 Oxygen Delivery Method Room Air Intake Visit Reasons: 6 MO F/U GERD Intake Note: Est pt for GERD, CIC, dysphagia mgmt. CC; Pt denies any GI sx or concerns at this time. Confirms current Rx are controlling sx well. Data Processing Equipment Repairer Required: No Accompanied by: Self / Same As Patient Allergies No Known Allergies (No Known Allergies*) Allergy (Verified 10/15/24 09:09) HPI HPI 6 MO F/U GERD: Details: Assessment & Plan (1) GERD (gastroesophageal reflux disease): Code(s): K21.9 - Gastro-esophageal reflux disease without esophagitis Category: Medical Plan She is about 6 weeks status post her hiatal hernia repair with Dr. Alvarado. She is doing quite well. They switched her from omeprazole to pantoprazole I think because it is easier to swallow. She was having some trouble with things feeling like there were getting stuck at the gastroesophageal junction and they simply encouraged her to chew things more thoroughly and cut her food smaller. For now she is on Carafate to promote healing and I did remind her to ask them how long she needs to continue this since she does suffer constipation. For now however that is well controlled with her senna. Return office visit in 6 months Medications: New pantoprazole 40 mg PO DAILY@0630 30 tabs 6RF K21.9 - Gastro-esophageal reflux disease without esophagitis Refilled sennosides (Senna Laxative) 17.2 mg (2 x 8.6 mg) PO BEDTIME 60 tabs 6RF K59.00 - Constipation, unspecified TODAY'S VISIT She is struggling with left ear problems. She also is having very bad back problems. Surgery is apparently not an option for her and she has exhausted her options with PT and injection therapy. She is no longer taking carafate, but still utilizing senna for her tulalip CIC. She is doing well on this and her pantoprazole. ROV 6 mow. PFS Medical History Cervical high risk HPV (human papillomavirus) test positive Fibromyalgia Elevated cholesterol Weight loss Karina's disease Non-toxic multinodular goiter Osteoarthritis of left hip Schatzki's ring Hiatal hernia Hx of migraines History of multinodular goiter IBS (irritable bowel syndrome) GERD (gastroesophageal reflux disease) Dysphagia Chronic pain syndrome Spondylosis, lumbar, with myelopathy Sacroiliitis Surgical History History of bilateral tubal ligation Hx of dilation and curettage Hx of arthroscopy of right knee History of esophagogastroduodenoscopy (EGD) Hx of colonoscopy History of cholecystectomy Family History Father Unknown family medical history Mother Arthritis Diverticulitis Gastritis Breast cancer Chronic asthma Adenomatous colon polyp HTN (hypertension) Maternal Grandmother Colon cancer Daughter Hypothyroid Daughter Traveling blood clot in leg Obesity Prediabetes Social History Household Members: Spouse Housing: House Are you a primary child adolescent care to a significant other at home: No Do you presently have visiting nurse or other home services: No Alcohol intake: never Patient Tobacco Use Status: Former Tobacco user Tobacco use type: Cigarette Years Smoked: 20 service: No Current occupational status: employed 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 Female 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 History Menstrual Age of Menarche: 13 Review of Systems Const Denies fatigue, Denies fever(s), Denies night sweats, Denies poor appetite and Denies weight loss Eyes Details: glasses Reports requires corrective lenses ENT Reports Normal hearing present, Denies dental pain, Denies dysphagia, Denies hearing loss, Denies mouth pain, Denies odynophagia, Denies throat swelling, Denies tongue swelling and Reports other (Dentition adequate) Card Reports no additional complaints Resp Reports no additional complaints GI Details: Denies abdominal pain, Denies melena, Denies bloating, Denies hematochezia, Reports constipation, Denies GI cramping, Denies dysphagia, Denies excessive flatus, Denies early satiety, Reports heartburn, Denies diarrhea, Denies nausea, Denies odynophagia, Denies vomiting and Denies hematemesis Skin/Breast Denies pruritus, Denies lesions, Denies rash and Denies jaundice Neuro Reports Normal hearing present and Denies Abnormal speech present Endo Denies fatigue Aller/Immun Denies throat swelling and Denies tongue swelling Physical Exam Vital Signs: Last Vital Signs Pulse 54 10/15/24 09:10 BP 120/60 10/15/24 09:10 Pulse Ox 99 10/15/24 09:10 Oxygen Delivery Method Room Air 10/15/24 09:10 BMI result Body Mass Index 22.3 Const General: cooperative, no acute distress, well developed and well groomed Nutritional Appearance: well nourished Orientation/consciousness: oriented to person, oriented to place and oriented to time Limitations: No language barrier HEENT Head: Yes normocephalic and Yes atraumatic Eyes General: appearance normal, both eyes and all related structures Pupils: Equal, round and reactive pupils present Neck Neck: Yes normal visual inspection and Yes no lymphadenopathy Thyroid: Thyroid normal Resp Effort & Inspection: normal respiratory effort and able to speak in complete sentences Auscultation: clear to auscultation bilaterally Cardio Rate: regular rate Rhythm: regular rhythm Heart sounds: Normal, physiologic split S2 sound present Peripheral pulses: radial pulses present and posterior tibial pulses present GI Inspection: No distended and No Abdominal panniculus present Palpation (GI): Soft to palpation, nontender, no guarding, not rigid and No hepatosplenomegaly present Percussion: Yes normal to percussion Auscultation: normal bowel sounds Rectal Exam - Female: deferred Skin General skin exam: no rashes or lesions noted, turgor normal, skin not dry, no jaundice, No spider nevi and no striae Rashes: no rashes Nails: normal Neuro General: oriented to person, oriented to place and oriented to time Cranial nerves: Yes Equal, round and reactive pupils present and Yes Normal hearing present Speech: No Abnormal speech present Extrem General: Yes normal to inspection, No clubbing, No cyanosis and No edema Psych Appearance: grossly normal and well kempt Mental Status: mental status grossly normal Speech and movement: Normal speech and movement present Affect: normal affect Attitude: cooperative Thought process: Normal thought process present and not confabulating Thought content: Normal thought content present Insight: Good insight present (Psych) Judgement: Good judgement present (Psych) Assessment & Plan Assessment & Plan (1) GERD (gastroesophageal reflux disease): Code(s): K21.9 - Gastro-esophageal reflux disease without esophagitis Category: Medical (2) Constipation: Code(s): K59.00 - Constipation, unspecified Category: Medical (3) Family history of polyps in the colon: Comment: mother, maternal grandmother had CRC, 2022=hyperplasitic polyp repeat 5 years r/t FHX Code(s): Z83.719 - Family history of colon polyps, unspecified Category: Medical Plan She is struggling with left ear problems. She also is having very bad back problems. Surgery is apparently not an option for her and she has exhausted her options with PT and injection therapy. She is no longer taking carafate, but still utilizing senna for her tulalip CIC. She is doing well on this and her pantoprazole. ROV 6 mow. Medications: Refilled sennosides (Senna Laxative) 17.2 mg (2 x 8.6 mg) PO BEDTIME 60 tabs 6RF K59.00 - Constipation, unspecified pantoprazole 40 mg PO DAILY@0630 30 tabs 6RF K21.9 - Gastro-esophageal reflux disease without esophagitis Coding Level of Care Code Est Pt Level 3 (10191) Diagnoses GERD (gastroesophageal reflux disease) K21.9 Constipation K59.00 Family history of polyps in the colon Z83.719
[2024-10-15 09:10] VITALS: BP 120/60; PULSE 54; O2SAT 99; BMI 22.3
--- OUTSIDE RECORDS SUMMARY | 2024-10-15 09:47 | XMS_ITS | Encounter Summary ---
Author Organization [employer] Address [address] [place] [address] Care Team Providers Care Cutter Head Sharpener Name Role Phone [facility] Primary Care Provider [phone] Reason for Visit * Reason Comments Med Refill Encounter Details Date Type Department Care Team ([facility] st Contact Info) Description 08/19/2023 Refill [facility] MEDICINE [address] [place], [place] [phone] [facility] [address] [place] [address] Fibromyalgia Social History Tobacco Use Types Packs/Day [...] documented as of this encounter Care Teams Cutter Head Sharpener Relationship Specialty Start Date End Date Tierney Goncalves FNP [address] [place] [id number] PCP - General Family Medicine 12/27/21 documented as of this encounter
== END 2024-10-15 09:46 | disposition home or self-care (01) ==
LOC: HO.HGI 09:05
PROVIDERS: PCP Registered Nurse; Visit Provider Nurse Practitioner
DX: K21.9 Gastro-esophageal reflux disease without esophagitis (principal); K59.00 Constipation, unspecified; Z83.719 Family history of colon polyps, unspecified
CPT/HCPCS: 99213

== ENCOUNTER → 2024-10-15 09:04 | Outpatient (BNVA) | payer OTHER, SELFPAY | PROVIDERS: PCP Registered Nurse; Visit Provider Nurse Practitioner ==

== ENCOUNTER 2024-10-16 08:16 | Outpatient (AMB) | payer OTHER, SELFPAY ==
[2024-10-16 08:29] VITALS: BP 94/62; PULSE 55; O2SAT 97; BMI 22.8
--- NOTE | 2024-10-16 08:29 | MHC.OFFVIS ---
Vital Signs 10/16/24 08:29 Height 5 ft 3 in Weight 128 lb 15.527 oz BMI 22.8 BP 94/62 Blood Pressure Location Lt brachial Position Sitting Pulse 55 Pulse Source Pulse Oximeter Pulse Oximetry (%) 97 Oxygen Delivery Method Room Air Intake Visit Reasons: MNG Intake Note: Patient present today for MNG office visit. 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 Instructions: Resume on 03/12/24.] duloxetine 40 mg PO BID duloxetine 20 mg PO BID lidocaine 5% topical PRN omega 4-anc-ntt-fish oil 60-90-500 mg (Fish Oil) 1 cap PO DAILY pantoprazole 40 mg PO DAILY@0630 sennosides (Senna Laxative) 17.2 mg (2 x 8.6 mg) PO BEDTIME topiramate 50 mg PO DAILY HPI Comments Details: 64-year-old female here today for follow up of nontoxic multinodular goiter. She was initially following with Dr. Kam, then saw Dr. Erickson, last seen August 2023. She has had thyroid nodules at least dating back to 2016. 04/20/2016: FNA of the left midpole 1.9 cm nodule consistent with benign follicular nodule. 06/12/2019: FNA of the left dominant nodule again consistent with benign follicular nodule [place] category 2. She has had compressive symptoms per chart review at least since 2020. Apparently at that time she was on insurance which was not accepted at [facility] by Dr. Irina Barron practices., and she did not have transport to go to [place], and then it was decided that her compressive symptoms are not severe enough to warrant any emergent decisions and to see how her insurance situation plays out. Last visit with Dr. Erickson in August 2023 she was sent to Dr. Irina Barron for surgical consultation know that her insurance had changed. She also had a barium swallow 01/16/2023 that showed extensive esophageal dysmotility, question of spasm, this could be the reason she has dysphagia rather than her thyroid gland. She is following with GI, they taught achalasia is not the problem and she had a large hiatal hernia which was repaired in February 2024 here at [facility], which was thought by GI to be the reason for her dysphagia/GERD. Last thyroid ultrasound was July 2021, which showed stability in the size of the bilateral nodules. She has a right superior 1 cm TR 3 category solid isoechoic nodule, a right superior mid 0.9 cm solid hypoechoic TR 4 nodule, a right mid 1.2 cm solid hypoechoic TR 4 nodule, a right inferior subcentimeter TR 3 nodule, another right inferior subcentimeter solid isoechoic TR 3 nodule. The left dominant nodule is the left superior mid 2.2 cm nodule which is solid isoechoic, has been biopsied twice in 2015 and 2019 and was benign, and she has a left inferior subcentimeter TR 3 nodule, another left inferior subcentimeter 0.4 cm TR 4 nodule, and a left inferior 1.2 cm solid hyperechoic TR 3 nodule. These were stable in size compared to previous ultrasounds. Reports worsening swallowing. Reports she chokes on her saliva. Last TSH normal January 2024. Daughter had thyroid nodules. No other family history of thyroid cancer or endocrine tumors. No personal history of head or neck radiation. Reports constipation that is chronic. Some intermittent infrequent palpitations. Energy is low. No tremors. No vision changes. Last TSH normal January 2024. Physical exam General: sitting comfortably in no acute distress HEENT: normocephalic/atraumatic, EOM intact, moist oral mucosa Neck: supple, palpable 2 cm left-sided nodule Cardiac: normal heart sounds Pulm: normal breath sounds B/L, no added breath sounds Abd: not distended, no tenderness Extremities: no edema, no signs of myxedema Neuro: AAO x3, Speech: normal, no facial droop, moving all 4 extremities Laboratory Tests 02/26/24 08:55 TSH 2.23 US THYROID 08/23/21 CLINICAL INFORMATION: Nontoxic multinodular goiter. COMPARISON: Ultrasound soft tissue head/neck thyroid dated 07/07/2020 and 05/05/2019. TECHNIQUE: Linear transducer grayscale and color Doppler examination with attention to the region of the thyroid. FINDINGS: SIZE: Measurements of the thyroid lobes and nodules are given in sagittal, anteroposterior and transverse dimensions respectively. Right Thyroid Lobe: 5.6 x 1.8 x 2.0 cm, volume 10.4 mL. Previously 5.8 x 2.0 x 1.7 cm, volume 10.6 mL. Parenchyma: The gland echotexture is heterogeneous. Thyroid vascularity is normal. Left Thyroid Lobe: 5.6 x 2.2 x 2.3 cm, volume 15.0 mL. Previously 5.9 x 2.1 x 2.0 cm, volume 13.1 mL. Parenchyma: The gland echotexture is heterogeneous. Thyroid vascularity is normal. Isthmus: 0.2 cm in maximum AP dimension. Previously 0.1 cm. Estimated total number of nodules greater than or equal to 1 cm: 5. Office Automation Technician nodules are described as follows: 1. Location: Right superior. Size: 0.7 x 0.5 x 0.6 cm, volume 0.1 mL. Previously: 0.7 x 0.5 x 0.6 cm, volume 0.1 mL. Nodule characteristics: Composition: Solid (2). Echogenicity: Very hypoechoic (3). Shape: Not taller than wide (0). Margins: Smooth (0). Echogenic Foci: None (0). ACR TI-RADS total points: 5 Previous: 4 ACR TI-RADS category: 4 Previous: 4 Significant change in size (>/= 20% in 2 dimensions and minimal increase of 2 mm or 50% or greater increase in volume): No Change in features: No Change in ACR TI-RADS risk category: No 2. Location: Right superior. Size: 1.0 x 0.8 x 0.9 cm, volume 0.4 mL. Previously: 0.9 x 0.8 x 0.8 cm, volume 0.3 mL. Nodule characteristics: Composition: Solid (2). Echogenicity: Isoechoic (1). Shape: Not taller than wide (0). Margins: Smooth (0). Echogenic Foci: None (0). ACR TI-RADS total points: 3 Previous: 4 ACR TI-RADS category: 3 Previous: 4 Significant change in size (>/= 20% in 2 dimensions and minimal increase of 2 mm or 50% or greater increase in volume): No Change in features: No Change in ACR TI-RADS risk category: No 3. Location: Right superior/mid. Size: 0.9 x 0.7 x 0.8 cm, volume 0.3 mL. Previously: 1.0 x 0.8 x 0.8 cm, volume 0.3 mL. Nodule characteristics: Composition: Solid/almost completely solid (2). Echogenicity: Hypoechoic (2). Shape: Not taller than wide (0). Margins: Smooth (0). Echogenic Foci: None (0). ACR TI-RADS total points: 4 Previous: 0 ACR TI-RADS category: 4 Previous: 1 Significant change in size (>/= 20% in 2 dimensions and minimal increase of 2 mm or 50% or greater increase in volume): No Change in features: No Change in ACR TI-RADS risk category: Yes, based on characterization 4. Location: Right mid. Size: 1.2 x 0.7 x 1.0 cm, volume 0.4 mL. Previously: Not documented on the prior study. Nodule characteristics: Composition: Solid (2). Echogenicity: Hypoechoic (2). Shape: Not taller than wide (0). Margins: Ill-defined (0). Echogenic Foci: None (0). ACR TI-RADS total points: 4 ACR TI-RADS category: 4 5. Location: Right inferior. Size: 0.5 x 0.5 x 0.5 cm, volume 0.07 mL. Previously: Not documented on the prior study. Nodule characteristics: Composition: Mixed cystic and solid (1). Echogenicity: Hypoechoic (2). Shape: Not taller than wide (0). Margins: Ill-defined (0). Echogenic Foci: None (0). ACR TI-RADS total points: 3 ACR TI-RADS category: 3 6. Location: Right inferior. Size: 0.5 x 0.4 x 0.4 cm, volume 0.04 mL. Previously: Not documented on the prior study. Nodule characteristics: Composition: Solid (2). Echogenicity: Isoechoic (1). Shape: Not taller than wide (0). Margins: Ill-defined (0). Echogenic Foci: None (0). ACR TI-RADS total points: 3 ACR TI-RADS category: 3 7. Location: Left superior/mid. Size: 2.2 x 1.8 x 1.9 cm, volume 4.0 mL. Previously: 2.2 x 1.8 x 1.9 cm, volume 4.1 mL. Nodule characteristics: Composition: Solid (2). Echogenicity: Isoechoic (1). Shape: Not taller than wide (0). Margins: Smooth (0). Echogenic Foci: None (0). ACR TI-RADS total points: 3 ACR TI-RADS category: 3 Significant change in size (>/= 20% in 2 dimensions and minimal increase of 2 mm or 50% or greater increase in volume): No Change in features: No Change in ACR TI-RADS risk category: No 8. Location: Left inferior. Size: 0.6 x 0.5 x 0.6 cm, volume 0.09 mL. Previously: 0.7 x 0.5 x 0.7 cm, volume 0.1 mL. Nodule characteristics: Composition: Solid (2). Echogenicity: Isoechoic (1). Shape: Not taller than wide (0). Margins: Smooth (0). Echogenic Foci: None (0). ACR TI-RADS total points: 3 ACR TI-RADS category: 3 9. Location: Left inferior. Size: 0.4 x 0.3 x 0.5 cm, volume 0.03 mL. Previously: Not documented on the prior study. Nodule characteristics: Composition: Solid (2). Echogenicity: Hypoechoic (2). Shape: Not taller than wide (0). Margins: Ill-defined (0). Echogenic Foci: None (0). ACR TI-RADS total points: 4 ACR TI-RADS category: 4 10. Location: Left inferior. Size: 1.2 x 0.9 x 0.7 cm, volume 0.4 mL. Previously: 1.2 x 0.9 x 0.8 cm, volume 0.5 mL. Nodule characteristics: Composition: Solid (2). Echogenicity: Hyperechoic (1). Shape: Not taller than wide (0). Margins: Smooth (0). Echogenic Foci: None (0). ACR TI-RADS total points: 3 Previous: 6 ACR TI-RADS category: 3 Previous: 4 Significant change in size (>/= 20% in 2 dimensions and minimal increase of 2 mm or 50% or greater increase in volume): No Change in features: No Change in ACR TI-RADS risk category: No NODES: No lymphadenopathy is seen in the tissue surrounding the thyroid gland. US/US thyroid IMPRESSION: Multinodular goiter. The previously measured nodules are without significant change from prior. On this study additional nodules were characterized, though on future imaging only the 5 most prominent nodules will be characterized. Previous biopsies have been performed. Given the lack of significant change in appearance from prior, continued follow-up would be suggested. US THYROID 07/07/20 CLINICAL INFORMATION: Nontoxic multinodular goiter. COMPARISON: Ultrasound soft tissue head/neck thyroid dated 05/05/2019 and 04/24/2018. TECHNIQUE: Linear transducer grayscale and color Doppler examination with attention to the region of the thyroid. FINDINGS: SIZE: Measurements of the thyroid lobes and nodules are given in sagittal, anteroposterior and transverse dimensions respectively. Right Thyroid Lobe: 5.8 x 2.0 x 1.7 cm, volume 10.6 mL. Previously 4.7 x 1.6 x 1.9 cm, volume 7.5 mL. Parenchyma: The gland echotexture is homogeneous. Thyroid vascularity is normal. Left Thyroid Lobe: 5.9 x 2.1 x 2.0 cm, volume 13.1 mL. Previously 5.2 x 2.0 x 2.2 cm, volume 12.0 mL. Parenchyma: The gland echotexture is homogeneous. Thyroid vascularity is increased. Isthmus: 0.1 cm in maximum AP dimension. Previously 0.2 cm. Estimated total number of nodules greater than or equal to 1 cm: 3. Office Automation Technician nodules are described as follows: 1. Location: Right superior. Size: 0.6 x 0.5 x 0.5 cm, volume 0.08 mL. Previously: 0.7 x 0.5 x 0.6 cm, volume 0.11 mL. Nodule characteristics: Composition: Solid/almost completely solid (2). Echogenicity: Hypoechoic (2). Shape: Not taller than wide (0). Margins: Smooth (0). Echogenic Foci: None (0). ACR TI-RADS total points: 4 ACR TI-RADS category: 4 Significant change in size (>/= 20% in 2 dimensions and minimal increase of 2 mm or 50% or greater increase in volume): None Change in features: None Change in ACR TI-RADS risk category: None 2. Location: Right superior. Size: 0.9 x 0.7 x 0.9 cm, volume 0.33 mL. Previously: 0.9 x 0.8 x 0.8 cm, volume 0.30 mL. Nodule characteristics: Composition: Solid (2). Echogenicity: Hypoechoic (2). Shape: Not taller than wide (0). Margins: Smooth (0). Echogenic Foci: None (0). ACR TI-RADS total points: 4 ACR TI-RADS category: 4 Significant change in size (>/= 20% in 2 dimensions and minimal increase of 2 mm or 50% or greater increase in volume): None Change in features: None Change in ACR TI-RADS risk category: None 3. Location: Right mid/superior. Size: 1.0 x 0.8 x 0.8 cm, volume 0.33 mL. Previously: 0.9 x 0.7 x 0.8 cm, volume 0.26 mL. Nodule characteristics: Composition: Spongiform (0). Echogenicity: Anechoic (0). Shape: Not taller than wide (0). Margins: Smooth (0). Echogenic Foci: None (0). ACR TI-RADS total points: 0 ACR TI-RADS category: 1 Significant change in size (>/= 20% in 2 dimensions and minimal increase of 2 mm or 50% or greater increase in volume): None Change in features: None Change in ACR TI-RADS risk category: None 4. Location: Left mid/superior. Size: 2.2 x 1.8 x 1.9 cm, volume 4.06 mL. Previously: 2.1 x 1.9 x 1.7 cm, volume 3.55 mL. Nodule characteristics: Composition: Solid (2). Echogenicity: Isoechoic (1). Shape: Not taller than wide (0). Margins: Smooth (0). Echogenic Foci: None (0). ACR TI-RADS total points: 3 ACR TI-RADS category: 3 Significant change in size (>/= 20% in 2 dimensions and minimal increase of 2 mm or 50% or greater increase in volume): None Change in features: None Change in ACR TI-RADS risk category: None 5. Location: Left inferior/lateral. Size: 1.2 x 0.9 x 0.8 cm, volume 0.45 mL. Previously: Not documented on the prior study. Nodule characteristics: Composition: Solid (2). Echogenicity: Isoechoic (1). Shape: Taller than wide (3). Margins: Smooth (0). Echogenic Foci: None (0). ACR TI-RADS total points: 6 ACR TI-RADS category: 4 New nodule not documented on the previous exam. NODES: No lymphadenopathy is seen in the tissue surrounding the thyroid gland. US/US thyroid IMPRESSION: Multinodular goiter. There are multiple nodules seen. The largest nodules are documented. A 1.2 cm left lower pole nodule is new or not documented previously. Recommend continued follow-up. [facility], [facility] Medical History Cervical high risk HPV (human papillomavirus) test positive Fibromyalgia Elevated cholesterol Weight loss Karina's disease Non-toxic multinodular goiter Osteoarthritis of left hip Schatzki's ring Hiatal hernia Hx of migraines History of multinodular goiter IBS (irritable bowel syndrome) GERD (gastroesophageal reflux disease) Dysphagia Chronic pain syndrome Spondylosis, lumbar, with myelopathy Sacroiliitis Surgical History History of bilateral tubal ligation Hx of dilation and curettage Hx of arthroscopy of right knee History of esophagogastroduodenoscopy (EGD) Hx of colonoscopy History of cholecystectomy Family History Father Unknown family medical history Mother Arthritis Diverticulitis Gastritis Breast cancer Chronic asthma Adenomatous colon polyp HTN (hypertension) Maternal Grandmother Colon cancer Daughter Hypothyroid Daughter Traveling blood clot in leg Obesity Prediabetes Social History Household Members: Spouse Housing: House Are you a primary home health caregiver to a significant other at home: No Do you presently have visiting nurse or other home services: No Alcohol intake: never Patient Tobacco Use Status: Former Tobacco user Tobacco use type: Cigarette Years Smoked: 18 service: No Current occupational status: employed 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 She was diagnosed with thyroid nodules at least dating back to 2015. She has had 2 biopsies of her left dominant superior 2.2 cm nodule in 2015 and 2019 which were both benign. Her last thyroid ultrasound was from 2021 which shows bilateral nodules, the left dominant superior 2.2 shown to meter nodule remained stable on that imaging. She has had problems with compressive symptoms dating back at least since 2020. She had a barium swallow study in 2022 which showed possible achalasia, however she saw GI and it was thought that most of her GERD symptoms are due to hiatal hernia, status post repair in February 2024. She is complaining of worsening dysphagia. She has not had any recent thyroid imaging. I will get a thyroid ultrasound. Her last TSH was normal from January 2024. We will repeat labs. Plan: -ordered TSH with reflex free T4 -ordered ultrasound of the thyroid -follow up in 5 weeks to discuss results with consideration for referral to Dr. Irina Barron at that appointment depending on ultrasound findings Plan I spent 30 minutes in reviewing the record, seeing the patient and documenting in the medical record. Orders: Orders US thyroid Today E04.2 - Nontoxic multinodular goiter Thyroid Stimulating Hormone Today E04.2 - Nontoxic multinodular goiter Free T4 (Free Thyroxine) Today E04.2 - Nontoxic multinodular goiter Patient Instructions: Do thyroid ultrasound , someone will call you to schedule this Do thyroid blood work Follow up in 5 weeks to discuss results Coding Level of Care Code Est Pt Level 4 (67085) Diagnoses Non-toxic multinodular goiter E04.2 Time Spent (min) 30
--- OUTSIDE RECORDS SUMMARY | 2024-10-16 08:39 | XMS_ITS | Encounter Summary ---
Author Organization [employer] Address [address] [place] [address] Care Team Providers Care Catastrophe Claims Supervisor Name Role Phone [facility] Primary Care Provider [phone] Reason for Visit * Reason Comments Med Refill Encounter Details Date Type Department Care Team ([facility] st Contact Info) Description 08/19/2023 Refill [facility]INE [address] [place] [address] [facility] [address] [place] [address] Fibromyalgia Social History Tobacco Use Types Packs/Day [...] documented as of this encounter Care Teams Catastrophe Claims Supervisor Relationship Specialty Start Date End Date Tierney Goncalves FNP [address] [place] [id number] PCP - General Family Medicine 12/27/21 documented as of this encounter
== END 2024-10-16 08:47 | disposition home or self-care (01) ==
LOC: HO.ENCR 08:27
PROVIDERS: PCP Registered Nurse; Visit Provider Student in an Organized Health Care Education/Training Program
DX: E04.2 Nontoxic multinodular goiter (principal)
CPT/HCPCS: 99214

== ENCOUNTER 2024-10-16 08:16 | Outpatient (REF) | payer OTHER, SELFPAY ==
[2024-10-16 10:29] LABS: Free T4 (Free Thyroxine) 0.85 ng/dL (0.71-1.85); Thyroid Stimulating Hormone 1.29 uIU/mL (0.32-4.0)
== END 2024-10-16 08:17 | disposition home or self-care (01) ==
LOC: HO.LAB 08:16
PROVIDERS: PCP Registered Nurse; Visit Provider Student in an Organized Health Care Education/Training Program
DX: E04.2 Nontoxic multinodular goiter (principal)
CPT/HCPCS: 36415; 84439; 84443

== ENCOUNTER 2024-10-23 14:10 | Outpatient (REF) | payer OTHER, SELFPAY ==
--- NOTE | ~2024-10-23 | US_ITS ---
EXAMINATION: US THYROID HISTORY: E04.2 - Nontoxic multinodular goiter TECHNIQUE: Real-time grayscale ultrasound imaging was performed and images were reviewed. COMPARISON: Comparison is made with the prior examination dated 08/23/2021. FINDINGS: SIZE: The right thyroid lobe measures 5.2 x 1.7 x 1.8 cm. The left thyroid lobe measures 5.6 x 2.3 x 2.3 cm. The isthmus measures 3 mm. FLOW: Flow to the gland is increased. ECHOGENICITY: The echotexture of the gland is heterogeneous. NODULES: Multiple bilateral nodules are identified as described below: Nodule #: 1 Location: Upper pole of the right thyroid lobe measuring 9 x 8 x 9 mm (previously 10 x 8 x 9 mm). Shape: Wider than tall (0 points) Margins: Smooth (0 points) Echotexture: Isoechoic (1 point) Composition: Solid (2 points) Calcifications: None (0 points) Total points: 3 TIRADS: TR3: Mildly suspicious. Nodule #: 2 Location: Upper pole of the right thyroid lobe measuring 8 x 6 x 7 mm (previously 9 x 7 x 8 mm). Shape: Wider than tall (0 points) Margins: Smooth (0 points) Echotexture: Indeterminate (1 point) Composition: Mostly solid (2 points) Calcifications: None (0 points) Total points: 3 TIRADS: TR3: Mildly suspicious. Nodule #: 3 Location: Midportion of the right thyroid lobe measuring 12 x 7 x 11 mm (previously 12 x 7 x 10 mm). Shape: Wider than tall (0 points) Margins: Smooth (0 points) Echotexture: Isoechoic (1 point) Composition: Solid (2 points) Calcifications: None (0 points) Total points: 3 TIRADS: TR3: Mildly suspicious. Nodule #: 4 Location: Mid to lower pole of the left thyroid lobe measuring 2.5 x 2.0 x 2.1 cm (previously 2.2 x 1.8 x 1.9 cm). Shape: Wider than tall (0 points) Margins: Smooth (0 points) Echotexture: Isoechoic (1 point) Composition: Mostly solid (2 points) Calcifications: None (0 points) Total points: 3 TIRADS: TR3: Mildly suspicious. Nodule #: 5 Location: Midportion of the left thyroid lobe measuring 5 x 5 x 6 mm (previously 6 x 5 x 6 mm). Shape: Wider than tall (0 points) Margins: Smooth (0 points) Echotexture: Indeterminate (1 point) Composition: Mostly solid (2 points) Calcifications: None (0 points) Total points: 3 TIRADS: TR3: Mildly suspicious. US/US thyroid IMPRESSION: Stable multinodular thyroid gland as described. Continued follow-up is recommended. ACR TI-RADS Guidelines TR1 (0 points): Benign, No follow-up or biopsy required TR2 (2 points): Not Suspicious, No biopsy or follow up indicated TR3 (3 points): Mildly Suspicious, FNA if >= 2.5 cm, Follow if >= 1.5 cm TR4 (4-6 points): Moderately Suspicious, FNA if >= 1.5 cm, Follow if >= 1.0 cm TR5 (>=7 points): Highly Suspicious, FNA if >= 1.0 cm, Follow if >= 0.5 cm Electronically signed by: Gasper Montez MD 10/24/2024 07:28 AM EDT
== END 2024-10-23 14:11 | disposition home or self-care (01) ==
LOC: HO.US 14:10
PROVIDERS: PCP Registered Nurse; Visit Provider Student in an Organized Health Care Education/Training Program
DX: E04.2 Nontoxic multinodular goiter (principal)
CPT/HCPCS: 76536

== ENCOUNTER → 2024-10-23 14:12 | Outpatient (BNV) | payer OTHER, SELFPAY | PROVIDERS: PCP Registered Nurse; Visit Provider Radiology Diagnostic Radiology | DX: E04.2 Nontoxic multinodular goiter (principal) | CPT/HCPCS: 76536 ==

== ENCOUNTER 2024-11-03 08:15 | Outpatient (AMB) | payer OTHER, SELFPAY ==
--- OUTSIDE RECORDS SUMMARY | 2024-11-03 08:21 | XMS_ITS | Encounter Summary ---
Author Organization [employer] Address [address] [facility] [address] [place] [address] Care Team Providers Care Grain Commodity Manager Name Role Phone [facility] Primary Care Provider [phone] Reason for Visit * Reason Comments Med Refill Encounter Details Date Type Department Care Team ([facility] st Contact Info) Description 08/19/2023 Refill [facility] [address] [place] [address] [facility] [address] [place] [address] Fibromyalgia Social History Tobacco Use Types Packs/Day [...] documented as of this encounter Care Teams Grain Commodity Manager Relationship Specialty Start Date End Date Tierney Goncalves FNP [address] [place] [id number] PCP - General Family Medicine 12/27/21 documented as of this encounter
[2024-11-03 08:47] VITALS: BMI 22.7
--- NOTE | 2024-11-03 08:47 | A.OFFVIS_ITS ---
Vital Signs 11/03/24 08:47 Height 5 ft 3 in Weight 128 lb BMI 22.7 Intake Visit Reasons: OV-B/L hands EMG review Intake Note: Adela is a 64 year old left hand dominant female who presents today for an EMG review of her bilateral UE. EMG/NCS done on 10/08/24 IMPRESSION: 1. This is an abnormal study. 2. There is electrodiagnostic evidence for bilateral mild median neuropathy at the wrist, consistent with carpal tunnel syndrome. 3. There is no electrodiagnostic evidence for ulnar neuropathy, brachial plexopathy, or cervical radiculopathy. Allergies No Known Allergies (No Known Allergies*) Allergy (Verified 11/03/24 08:48) [facility] Medical History Cervical high risk HPV (human papillomavirus) test positive Fibromyalgia Elevated cholesterol Weight loss Karina's disease Non-toxic multinodular goiter Osteoarthritis of left hip Schatzki's ring Hiatal hernia Hx of migraines History of multinodular goiter IBS (irritable bowel syndrome) GERD (gastroesophageal reflux disease) Dysphagia Chronic pain syndrome Spondylosis, lumbar, with myelopathy Sacroiliitis Surgical History History of bilateral tubal ligation Hx of dilation and curettage Hx of arthroscopy of right knee History of esophagogastroduodenoscopy (EGD) Hx of colonoscopy History of cholecystectomy Family History Father Unknown family medical history Mother Arthritis Diverticulitis Gastritis Breast cancer Chronic asthma Adenomatous colon polyp HTN (hypertension) Maternal Grandmother Colon cancer Daughter Hypothyroid Daughter Traveling blood clot in leg Obesity Prediabetes Social History Household Members: Spouse Housing: House Are you a primary palliative care nurse practitioner to a significant other at home: No Do you presently have visiting nurse or other home services: No Alcohol intake: never Patient Tobacco Use Status: Former Tobacco user Tobacco use type: Cigarette Years Smoked: 20 service: No Current occupational status: employed 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 The patient reports that the numbness and tingling have been persistent, and the recent EMG and nerve conduction study confirmed bilateral carpal tunnel syndrome. She experiences slightly diminished sensation in the median nerve distribution of both hands but is able to make a closed fist without evidence of thenar muscle wasting. 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 She is concerned about the impact of surgery on her ability to perform her duties, given the postoperative restriction of a two-pound weight limit for four weeks. Review of Systems - Neurological: Reports numbness and tingling in both hands Systems reviewed and are negative except as per HPI and below Physical Exam - Neurological: Slightly diminished sensation in the median nerve distribution of both hands, no evidence of thenar muscle wasting, able to make a closed fist Results - EMG and nerve conduction study: Positive for bilateral carpal tunnel syndrome Procedure Plan The plan for the patient includes considering surgical intervention for bilateral carpal tunnel syndrome, which involves a minor procedure under local anesthesia. The patient is advised of the postoperative restrictions, including a two-pound weight limit for four weeks, and the need to keep the surgical site clean and dry. The patient is encouraged to discuss the surgery with her daughter and consider the impact on her caregiving duties. A follow-up appointment is scheduled in four to six weeks to reassess and potentially schedule the surgery for the left hand, which is more symptomatic. Patient was informed and verbally consented to the use of an ambient scribe for clinic note documentation during this visit. Discussion Notes I discussed with the patient the diagnosis of bilateral carpal tunnel syndrome confirmed by EMG and nerve conduction study. We reviewed the surgical treatment option, including the procedure being performed under local anesthesia and the postoperative care requirements. I explained the importance of adhering to the weight restriction and keeping the surgical site clean and dry to ensure proper healing. The patient was advised to discuss the surgery with her daughter and consider the impact on her caregiving responsibilities. A follow-up appointment was scheduled to further discuss and potentially plan for the surgery on the left hand. Patient Instructions - Discuss the surgical plan with your daughter and consider the impact on caregiving duties. - Keep the surgical site clean and dry postoperatively, using a plastic bag to cover the hand while showering. - Adhere to the two-pound weight limit for four weeks after surgery. - Attend the follow-up appointment in four to six weeks to reassess and plan for surgery. Coding Level of Care Code Est Pt Level 3 (67213) Diagnoses Bilateral carpal tunnel syndrome G56.03
== END 2024-11-03 08:35 | disposition home or self-care (01) ==
LOC: HO.HOS 08:16
PROVIDERS: PCP Registered Nurse
DX: G56.03 Carpal tunnel syndrome, bilateral upper limbs (principal)
CPT/HCPCS: 99214

== ENCOUNTER 2024-11-04 06:11 | Outpatient (REF) | payer OTHER, SELFPAY ==
--- NOTE | ~2024-11-04 | FL_ITS ---
EXAMINATION: FL GUIDANCE ONLY HISTORY: M19.012 - Primary osteoarthritis, left shoulder COMPARISON: Correlation is made with plain films of the left shoulder dated 06/13/2024. TECHNIQUE: Fluoroscopy time: 0.1 minutes. Cumulative Dose: 0.327 mGy. DAP: 0.33825 mGym2 Images: 2. FINDINGS: Fluoroscopic spot films of the left shoulder demonstrate a needle in place and contrast material in the joint space. FL/FL guidance in treatment room IMPRESSION: Fluoroscopy during procedure. Please see procedure report for additional information. Electronically signed by: Gasper Montez MD 11/04/2024 09:25 AM EDT
--- OUTSIDE RECORDS SUMMARY | 2024-11-04 06:13 | XMS_ITS | Encounter Summary ---
Author Organization [employer] Address [address] [facility] 7[address] [place] [address] Care Team Providers Care Patternator Name Role Phone [facility] Primary Care Provider [phone] Reason for Visit * Reason Comments Med Refill Encounter Details Date Type Department Care Team ([facility] st Contact Info) Description 08/19/2023 Refill [facility] MEDICINE [address] [place] [address] [facility] [address] [place] [address] Fibromyalgia Social History Tobacco Use Types Packs/Day [...] documented as of this encounter Care Teams Patternator Relationship Specialty Start Date End Date Tierney Goncalves FNP [address] [place] [id number] PCP - General Family Medicine 12/27/21 documented as of this encounter
== END 2024-11-04 06:12 | disposition home or self-care (01) ==
LOC: CF 06:11
PROVIDERS: Visit Provider Anesthesiology
DX: M19.012 Primary osteoarthritis, left shoulder (principal); M25.512 Pain in left shoulder
CPT/HCPCS: 20610; J2003; J2795; J3301; Q9967

== ENCOUNTER 2024-11-04 08:11 | Outpatient (AMB) | payer OTHER, SELFPAY ==
[2024-11-04 08:21] VITALS: BP 111/62; PULSE 51; RESP 16; O2SAT 100; BMI 22.7
--- NOTE | 2024-11-04 08:21 | MHC.OFFVIS ---
Vital Signs 11/04/24 08:21 11/04/24 08:48 Height 5 ft 3 in Weight 128 lb BMI 22.7 BP 111/62 114/70 Blood Pressure Location Lt brachial Lt brachial Position Sitting Sitting Respiration 16 18 Pulse 51 50 Pulse Source Pulse Oximeter Pulse Oximeter Pulse Oximetry (%) 100 100 Oxygen Delivery Method Room Air Room Air Intake Visit Reasons: LEFT INTRA-ARTICULAR SHOULDER INJECTION Allergies No Known Allergies (No Known Allergies*) Allergy (Verified 11/03/24 08:48) [facility] Medical History Cervical high risk HPV (human papillomavirus) test positive Fibromyalgia Elevated cholesterol Weight loss Karina's disease Non-toxic multinodular goiter Osteoarthritis of left hip Schatzki's ring Hiatal hernia Hx of migraines History of multinodular goiter IBS (irritable bowel syndrome) GERD (gastroesophageal reflux disease) Dysphagia Chronic pain syndrome Spondylosis, lumbar, with myelopathy Sacroiliitis Surgical History History of bilateral tubal ligation Hx of dilation and curettage Hx of arthroscopy of right knee History of esophagogastroduodenoscopy (EGD) Hx of colonoscopy History of cholecystectomy Family History Father Unknown family medical history Mother Arthritis Diverticulitis Gastritis Breast cancer Chronic asthma Adenomatous colon polyp HTN (hypertension) Maternal Grandmother Colon cancer Daughter Hypothyroid Daughter Traveling blood clot in leg Obesity Prediabetes Social History Household Members: Spouse Housing: House Are you a primary healthcare economics consultant to a significant other at home: No Do you presently have visiting nurse or other home services: No Alcohol intake: never Patient Tobacco Use Status: Former Tobacco user Tobacco use type: Cigarette Years Smoked: 20 service: No Current occupational status: employed 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 Adela is very pleasant 64 years old female who came today in the injection area to receive therapeutic left glenohumeral joint injection. Informed consent was explained to the patient. Risks and benefits were known to the patient. The patient was positioned prone on operating table with pillow under the abdomen. The left shoulder and upper back of the patient was prepped with ChloraPrep and draped with sterile self adhesive utility towels. C-arm was brought over the operating field. The image of the left glenohumeral joint was demonstrated on the screen. Image of the pacemaker was also demonstrated on the screen. Tilting machine cephalad and ipsilateral to the site of the joint the head of the humeral bone was demonstrated on the screen. The local anesthetic mixture of lidocaine 2% mixed with ropivacaine 0.5% one-to-one was injected slightly lateral to the projection of the anterior medial silhouette of the humeral head to the skin forming a skin wheal. After that 22 gauge 3-1/2 inch needle was inserted through the skin wheal and advanced to were the silhouette of the joint in tunnel vision fashion. When needle entered the silhouette of the joint injection of the contrast performed delineating arthrogram. After that injection of the ropivacaine 0.5% 4 mL mixed with Kenalog 40 mg was performed into the joint. The patient tolerated injection well. The needle was withdrawn Band-Aid was applied. She was taken outside of the operating room to recovery room where she recovered uneventfully. Orders: Orders FL guidance in treatment room Today M19.012 - Primary osteoarthritis, left shoulder Coding Level of Care Code Procedure Only Diagnoses Left shoulder pain M25.512
[2024-11-04 08:48] VITALS: BP 114/70; PULSE 50; RESP 18; O2SAT 100
== END 2024-11-04 08:52 | disposition home or self-care (01) ==
LOC: HO.PMCPRC 08:11
PROVIDERS: PCP Registered Nurse; Visit Provider Anesthesiology
DX: M25.512 Pain in left shoulder (principal)
CPT/HCPCS: 20610; 77002

== ENCOUNTER 2024-11-20 08:02 | Outpatient (AMB) | payer OTHER, SELFPAY ==
--- OUTSIDE RECORDS SUMMARY | 2024-11-20 08:05 | XMS_ITS | Encounter Summary ---
Author Organization [facility] Address [address] [place] [phone] Phone Care Team Providers Care Leather Sponger Name Role Phone Pcp, Unknown Primary Care Provider Unavailabl e Tierney Goncalves Primary Care Provider [phone] Encounter Details Date Type Department Care Team (Late st Contact Info) Description 07/24/2023 Procedure Pass [facility] Endoscopy Admitting Dept Virtual Department [address] [place] [address] Social History Tobacco Use Types Packs/Day Years Used Date Smoking Tobacco: Never Assessed Education Answer Date Recorded Are you interested in more education? Not on brianda e 04/17/2023 Are you concerned about learning? Not on file 04/17/2023 No 04/17/2023 No 04/17/2023 Digital Access Answer Date Recorded No 04/17/2023 No 04/17/2023 Reliable internet access at home? Not on file 04/17/2023 Device with a working camera? Not on file Comments Unknown Sex and Gender Information Value Date Recorded Sex Assigned at Not on file Legal Sex Female 12:27 PM EST Gender Identity Not on file Sexual Orientation Not on file documented as of this encounter Plan of Treatment Not on file documented as of this encounter Visit Diagnoses Not on filedocumented in this encounter Care Teams Leather Sponger Relationship Specialty Start Date End Date Pcp, Unknown PCP - General 04/17/23 07/30/23 Tierney Goncalves FNP [address] [place] [address] PCP - General Nurse Practitioner 07/31/23 documented as of this encounter Additional Source Comments The information contained in this document represents components of the legal health record. It is not the complete legal health record.[facility]
--- OUTSIDE RECORDS SUMMARY | 2024-11-20 08:05 | XMS_ITS | Encounter Summary ---
Author Organization [facility] Address [address] [facility] [address] [place] [address] Care Team Providers Care Senior Dynamics Crm Developer Name Role Phone [facility] Primary Care Provider [phone] Reason for Visit * Reason Comments Med Refill Encounter Details Date Type Department Care Team ([facility] st Contact Info) Description 08/19/2023 Refill [facility] MEDICINE [address] [place] [address] [facility] [address] [place] [address] Fibromyalgia Social History Tobacco Use Types Packs/Day [...] as of this encounter Care Teams [employer] Crm Developer Relationship Specialty Start Date End Date Tierney Goncalves FNP [address] [place] [id number] PCP - General Family Medicine 12/27/21 documented as of this encounter
[2024-11-20 08:08] VITALS: BP 106/72; PULSE 56; O2SAT 99; BMI 22.8
--- NOTE | 2024-11-20 08:08 | MHC.OFFVIS ---
Vital Signs 11/20/24 08:08 Height 5 ft 3 in Weight 128 lb 8.472 oz BMI 22.8 BP 106/72 Blood Pressure Location Lt brachial Position Sitting Pulse 56 Pulse Source Pulse Oximeter Pulse Oximetry (%) 99 Oxygen Delivery Method Room Air Intake Visit Reasons: MNG Intake Note: Patient present today for MNG office visit. Commercial Collector Required: No Accompanied by: Self / Same As Patient Allergies No Known Allergies (No Known Allergies*) Allergy (Verified 11/20/24 08:11) Medication List - Last Reconciled 11/20/24 by Desi Mccarthy MD acetaminophen ER 650 mg PO Q12H amitriptyline 5 mg PO BEDTIME PRN [Centrum Silver Women 1 tab PO DAILY Held on 03/05/24. Instructions: Resume on 03/12/24.] duloxetine 40 mg PO BID duloxetine 20 mg PO BID lidocaine 5% 5 appl topical DAILY PRN omega 1-skm-spq-fish oil 60-90-500 mg (Fish Oil) 1 cap PO DAILY pantoprazole 40 mg PO DAILY@0630 sennosides (Senna Laxative) 17.2 mg (2 x 8.6 mg) PO BEDTIME topiramate 50 mg PO DAILY HPI Comments Details: 64-year-old female here today for follow up of nontoxic multinodular goiter. She was initially following with Dr. Kam, then saw Dr. Erickson for sometime HPI She has had thyroid nodules at least dating back to 2015. 04/20/2016: FNA of the left midpole 1.9 cm nodule consistent with benign follicular nodule. 06/12/2019: FNA of the left dominant nodule again consistent with benign follicular nodule [place] category 2. She has had compressive symptoms per chart review at least since 2020. Apparently at that time she was on insurance which was not accepted at [facility] by Dr. Irina Rust practices., and she did not have transport to go to [place], and then it was decided that her compressive symptoms are not severe enough to warrant any emergent decisions and to see how her insurance situation plays out. Last visit with Dr. Erickson in August 2023 she was sent to Dr. Irina Rust for surgical consultation know that her insurance had changed. She also had a barium swallow 01/16/2023 that showed extensive esophageal dysmotility, question of spasm, this could be the reason she has dysphagia rather than her thyroid gland. She is following with GI, they taught achalasia is not the problem and she had a large hiatal hernia which was repaired in February 2024 here at [place], which was thought by GI to be the reason for her dysphagia/GERD. Last thyroid ultrasound was July 2021, which showed stability in the size of the bilateral nodules. She has a right superior 1 cm TR 3 category solid isoechoic nodule, a right superior mid 0.9 cm solid hypoechoic TR 4 nodule, a right mid 1.2 cm solid hypoechoic TR 4 nodule, a right inferior subcentimeter TR 3 nodule, another right inferior subcentimeter solid isoechoic TR 3 nodule. The left dominant nodule is the left superior mid 2.2 cm nodule which is solid isoechoic, has been biopsied twice in 2015 and 2019 and was benign, and she has a left inferior subcentimeter TR 3 nodule, another left inferior subcentimeter 0.4 cm TR 4 nodule, and a left inferior 1.2 cm solid hyperechoic TR 3 nodule. These were stable in size compared to previous ultrasounds. Reports worsening swallowing. Reports she chokes on her saliva. Last TSH normal January 2024. Daughter had thyroid nodules. No other family history of thyroid cancer or endocrine tumors. No personal history of head or neck radiation. Reports constipation that is chronic. Some intermittent infrequent palpitations. Energy is low. No tremors. No vision changes. Last TSH normal January 2024. Interval history Ultrasound thyroid 10/23/2024: I reviewed the images myself which show a heterogenous gland with increased vascularity, with multiple bilateral nodules. Right superior 0.9 cm solid isoechoic TR 3 nodule remained stable in size. Right superior 0.8 cm solid TR 3 nodule also remained stable in size. Right mid lobe 1.2 cm solid isoechoic TR 3 nodule also stable in size. Left mid to lower pole 2.5 cm solid isoechoic TR 3 nodule which is the dominant nodule that has been biopsied twice before and 2015 and 2019 and was benign is only somewhat increased in size. Left mid 0.6 cm solid isoechoic TR 3 nodule remained stable in size. Overall stable size of the nodules. TSH and free T4 normal from September 2024. Physical exam General: sitting comfortably in no acute distress HEENT: normocephalic/atraumatic, EOM intact, moist oral mucosa Neck: supple, palpable 2 cm left-sided nodule Cardiac: normal heart sounds Pulm: normal breath sounds B/L, no added breath sounds Abd: not distended, no tenderness Extremities: no edema, no signs of myxedema Neuro: AAO x3, Speech: normal, no facial droop, moving all 4 extremities Laboratory Tests 02/26/24 08:55 TSH 2.23 Laboratory Tests 10/16/24 09:08 TSH 1.29 Free T4 0.85 US THYROID 10/23/24 HISTORY: E04.2 - Nontoxic multinodular goiter TECHNIQUE: Real-time grayscale ultrasound imaging was performed and images were reviewed. COMPARISON: Comparison is made with the prior examination dated 08/23/2021. FINDINGS: SIZE: The right thyroid lobe measures 5.2 x 1.7 x 1.8 cm. The left thyroid lobe measures 5.6 x 2.3 x 2.3 cm. The isthmus measures 3 mm. FLOW: Flow to the gland is increased. ECHOGENICITY: The echotexture of the gland is heterogeneous. NODULES: Multiple bilateral nodules are identified as described below: Nodule #: 1 Location: Upper pole of the right thyroid lobe measuring 9 x 8 x 9 mm (previously 10 x 8 x 9 mm). Shape: Wider than tall (0 points) Margins: Smooth (0 points) Echotexture: Isoechoic (1 point) Composition: Solid (2 points) Calcifications: None (0 points) Total points: 3 TIRADS: TR3: Mildly suspicious. Nodule #: 2 Location: Upper pole of the right thyroid lobe measuring 8 x 6 x 7 mm (previously 9 x 7 x 8 mm). Shape: Wider than tall (0 points) Margins: Smooth (0 points) Echotexture: Indeterminate (1 point) Composition: Mostly solid (2 points) Calcifications: None (0 points) Total points: 3 TIRADS: TR3: Mildly suspicious. Nodule #: 3 Location: Midportion of the right thyroid lobe measuring 12 x 7 x 11 mm (previously 12 x 7 x 10 mm). Shape: Wider than tall (0 points) Margins: Smooth (0 points) Echotexture: Isoechoic (1 point) Composition: Solid (2 points) Calcifications: None (0 points) Total points: 3 TIRADS: TR3: Mildly suspicious. Nodule #: 4 Location: Mid to lower pole of the left thyroid lobe measuring 2.5 x 2.0 x 2.1 cm (previously 2.2 x 1.8 x 1.9 cm). Shape: Wider than tall (0 points) Margins: Smooth (0 points) Echotexture: Isoechoic (1 point) Composition: Mostly solid (2 points) Calcifications: None (0 points) Total points: 3 TIRADS: TR3: Mildly suspicious. Nodule #: 5 Location: Midportion of the left thyroid lobe measuring 5 x 5 x 6 mm (previously 6 x 5 x 6 mm). Shape: Wider than tall (0 points) Margins: Smooth (0 points) Echotexture: Indeterminate (1 point) Composition: Mostly solid (2 points) Calcifications: None (0 points) Total points: 3 TIRADS: TR3: Mildly suspicious. US/US thyroid IMPRESSION: Stable multinodular thyroid gland as described. Continued follow-up is recommended. US THYROID 08/23/21 CLINICAL INFORMATION: Nontoxic multinodular goiter. COMPARISON: Ultrasound soft tissue head/neck thyroid dated 07/07/2020 and 05/05/2019. TECHNIQUE: Linear transducer grayscale and color Doppler examination with attention to the region of the thyroid. FINDINGS: SIZE: Measurements of the thyroid lobes and nodules are given in sagittal, anteroposterior and transverse dimensions respectively. Right Thyroid Lobe: 5.6 x 1.8 x 2.0 cm, volume 10.4 mL. Previously 5.8 x 2.0 x 1.7 cm, volume 10.6 mL. Parenchyma: The gland echotexture is heterogeneous. Thyroid vascularity is normal. Left Thyroid Lobe: 5.6 x 2.2 x 2.3 cm, volume 15.0 mL. Previously 5.9 x 2.1 x 2.0 cm, volume 13.1 mL. Parenchyma: The gland echotexture is heterogeneous. Thyroid vascularity is normal. Isthmus: 0.2 cm in maximum AP dimension. Previously 0.1 cm. Estimated total number of nodules greater than or equal to 1 cm: 5. Photoengraving Helper nodules are described as follows: 1. Location: Right superior. Size: 0.7 x 0.5 x 0.6 cm, volume 0.1 mL. Previously: 0.7 x 0.5 x 0.6 cm, volume 0.1 mL. Nodule characteristics: Composition: Solid (2). Echogenicity: Very hypoechoic (3). Shape: Not taller than wide (0). Margins: Smooth (0). Echogenic Foci: None (0). ACR TI-RADS total points: 5 Previous: 4 ACR TI-RADS category: 4 Previous: 4 Significant change in size (>/= 20% in 2 dimensions and minimal increase of 2 mm or 50% or greater increase in volume): No Change in features: No Change in ACR TI-RADS risk category: No 2. Location: Right superior. Size: 1.0 x 0.8 x 0.9 cm, volume 0.4 mL. Previously: 0.9 x 0.8 x 0.8 cm, volume 0.3 mL. Nodule characteristics: Composition: Solid (2). Echogenicity: Isoechoic (1). Shape: Not taller than wide (0). Margins: Smooth (0). Echogenic Foci: None (0). ACR TI-RADS total points: 3 Previous: 4 ACR TI-RADS category: 3 Previous: 4 Significant change in size (>/= 20% in 2 dimensions and minimal increase of 2 mm or 50% or greater increase in volume): No Change in features: No Change in ACR TI-RADS risk category: No 3. Location: Right superior/mid. Size: 0.9 x 0.7 x 0.8 cm, volume 0.3 mL. Previously: 1.0 x 0.8 x 0.8 cm, volume 0.3 mL. Nodule characteristics: Composition: Solid/almost completely solid (2). Echogenicity: Hypoechoic (2). Shape: Not taller than wide (0). Margins: Smooth (0). Echogenic Foci: None (0). ACR TI-RADS total points: 4 Previous: 0 ACR TI-RADS category: 4 Previous: 1 Significant change in size (>/= 20% in 2 dimensions and minimal increase of 2 mm or 50% or greater increase in volume): No Change in features: No Change in ACR TI-RADS risk category: Yes, based on characterization 4. Location: Right mid. Size: 1.2 x 0.7 x 1.0 cm, volume 0.4 mL. Previously: Not documented on the prior study. Nodule characteristics: Composition: Solid (2). Echogenicity: Hypoechoic (2). Shape: Not taller than wide (0). Margins: Ill-defined (0). Echogenic Foci: None (0). ACR TI-RADS total points: 4 ACR TI-RADS category: 4 5. Location: Right inferior. Size: 0.5 x 0.5 x 0.5 cm, volume 0.07 mL. Previously: Not documented on the prior study. Nodule characteristics: Composition: Mixed cystic and solid (1). Echogenicity: Hypoechoic (2). Shape: Not taller than wide (0). Margins: Ill-defined (0). Echogenic Foci: None (0). ACR TI-RADS total points: 3 ACR TI-RADS category: 3 6. Location: Right inferior. Size: 0.5 x 0.4 x 0.4 cm, volume 0.04 mL. Previously: Not documented on the prior study. Nodule characteristics: Composition: Solid (2). Echogenicity: Isoechoic (1). Shape: Not taller than wide (0). Margins: Ill-defined (0). Echogenic Foci: None (0). ACR TI-RADS total points: 3 ACR TI-RADS category: 3 7. Location: Left superior/mid. Size: 2.2 x 1.8 x 1.9 cm, volume 4.0 mL. Previously: 2.2 x 1.8 x 1.9 cm, volume 4.1 mL. Nodule characteristics: Composition: Solid (2). Echogenicity: Isoechoic (1). Shape: Not taller than wide (0). Margins: Smooth (0). Echogenic Foci: None (0). ACR TI-RADS total points: 3 ACR TI-RADS category: 3 Significant change in size (>/= 20% in 2 dimensions and minimal increase of 2 mm or 50% or greater increase in volume): No Change in features: No Change in ACR TI-RADS risk category: No 8. Location: Left inferior. Size: 0.6 x 0.5 x 0.6 cm, volume 0.09 mL. Previously: 0.7 x 0.5 x 0.7 cm, volume 0.1 mL. Nodule characteristics: Composition: Solid (2). Echogenicity: Isoechoic (1). Shape: Not taller than wide (0). Margins: Smooth (0). Echogenic Foci: None (0). ACR TI-RADS total points: 3 ACR TI-RADS category: 3 9. Location: Left inferior. Size: 0.4 x 0.3 x 0.5 cm, volume 0.03 mL. Previously: Not documented on the prior study. Nodule characteristics: Composition: Solid (2). Echogenicity: Hypoechoic (2). Shape: Not taller than wide (0). Margins: Ill-defined (0). Echogenic Foci: None (0). ACR TI-RADS total points: 4 ACR TI-RADS category: 4 10. Location: Left inferior. Size: 1.2 x 0.9 x 0.7 cm, volume 0.4 mL. Previously: 1.2 x 0.9 x 0.8 cm, volume 0.5 mL. Nodule characteristics: Composition: Solid (2). Echogenicity: Hyperechoic (1). Shape: Not taller than wide (0). Margins: Smooth (0). Echogenic Foci: None (0). ACR TI-RADS total points: 3 Previous: 6 ACR TI-RADS category: 3 Previous: 4 Significant change in size (>/= 20% in 2 dimensions and minimal increase of 2 mm or 50% or greater increase in volume): No Change in features: No Change in ACR TI-RADS risk category: No NODES: No lymphadenopathy is seen in the tissue surrounding the thyroid gland. US/US thyroid IMPRESSION: Multinodular goiter. The previously measured nodules are without significant change from prior. On this study additional nodules were characterized, though on future imaging only the 5 most prominent nodules will be characterized. Previous biopsies have been performed. Given the lack of significant change in appearance from prior, continued follow-up would be suggested. US THYROID 07/07/20 CLINICAL INFORMATION: Nontoxic multinodular goiter. COMPARISON: Ultrasound soft tissue head/neck thyroid dated 05/05/2019 and 04/24/2018. TECHNIQUE: Linear transducer grayscale and color Doppler examination with attention to the region of the thyroid. FINDINGS: SIZE: Measurements of the thyroid lobes and nodules are given in sagittal, anteroposterior and transverse dimensions respectively. Right Thyroid Lobe: 5.8 x 2.0 x 1.7 cm, volume 10.6 mL. Previously 4.7 x 1.6 x 1.9 cm, volume 7.5 mL. Parenchyma: The gland echotexture is homogeneous. Thyroid vascularity is normal. Left Thyroid Lobe: 5.9 x 2.1 x 2.0 cm, volume 13.1 mL. Previously 5.2 x 2.0 x 2.2 cm, volume 12.0 mL. Parenchyma: The gland echotexture is homogeneous. Thyroid vascularity is increased. Isthmus: 0.1 cm in maximum AP dimension. Previously 0.2 cm. Estimated total number of nodules greater than or equal to 1 cm: 3. Photoengraving Helper nodules are described as follows: 1. Location: Right superior. Size: 0.6 x 0.5 x 0.5 cm, volume 0.08 mL. Previously: 0.7 x 0.5 x 0.6 cm, volume 0.11 mL. Nodule characteristics: Composition: Solid/almost completely solid (2). Echogenicity: Hypoechoic (2). Shape: Not taller than wide (0). Margins: Smooth (0). Echogenic Foci: None (0). ACR TI-RADS total points: 4 ACR TI-RADS category: 4 Significant change in size (>/= 20% in 2 dimensions and minimal increase of 2 mm or 50% or greater increase in volume): None Change in features: None Change in ACR TI-RADS risk category: None 2. Location: Right superior. Size: 0.9 x 0.7 x 0.9 cm, volume 0.33 mL. Previously: 0.9 x 0.8 x 0.8 cm, volume 0.30 mL. Nodule characteristics: Composition: Solid (2). Echogenicity: Hypoechoic (2). Shape: Not taller than wide (0). Margins: Smooth (0). Echogenic Foci: None (0). ACR TI-RADS total points: 4 ACR TI-RADS category: 4 Significant change in size (>/= 20% in 2 dimensions and minimal increase of 2 mm or 50% or greater increase in volume): None Change in features: None Change in ACR TI-RADS risk category: None 3. Location: Right mid/superior. Size: 1.0 x 0.8 x 0.8 cm, volume 0.33 mL. Previously: 0.9 x 0.7 x 0.8 cm, volume 0.26 mL. Nodule characteristics: Composition: Spongiform (0). Echogenicity: Anechoic (0). Shape: Not taller than wide (0). Margins: Smooth (0). Echogenic Foci: None (0). ACR TI-RADS total points: 0 ACR TI-RADS category: 1 Significant change in size (>/= 20% in 2 dimensions and minimal increase of 2 mm or 50% or greater increase in volume): None Change in features: None Change in ACR TI-RADS risk category: None 4. Location: Left mid/superior. Size: 2.2 x 1.8 x 1.9 cm, volume 4.06 mL. Previously: 2.1 x 1.9 x 1.7 cm, volume 3.55 mL. Nodule characteristics: Composition: Solid (2). Echogenicity: Isoechoic (1). Shape: Not taller than wide (0). Margins: Smooth (0). Echogenic Foci: None (0). ACR TI-RADS total points: 3 ACR TI-RADS category: 3 Significant change in size (>/= 20% in 2 dimensions and minimal increase of 2 mm or 50% or greater increase in volume): None Change in features: None Change in ACR TI-RADS risk category: None 5. Location: Left inferior/lateral. Size: 1.2 x 0.9 x 0.8 cm, volume 0.45 mL. Previously: Not documented on the prior study. Nodule characteristics: Composition: Solid (2). Echogenicity: Isoechoic (1). Shape: Taller than wide (3). Margins: Smooth (0). Echogenic Foci: None (0). ACR TI-RADS total points: 6 ACR TI-RADS category: 4 New nodule not documented on the previous exam. NODES: No lymphadenopathy is seen in the tissue surrounding the thyroid gland. US/US thyroid IMPRESSION: Multinodular goiter. There are multiple nodules seen. The largest nodules are documented. A 1.2 cm left lower pole nodule is new or not documented previously. Recommend continued follow-up. [facility] Medical History Cervical high risk HPV (human papillomavirus) test positive Fibromyalgia Elevated cholesterol Weight loss Karina's disease Non-toxic multinodular goiter Osteoarthritis of left hip Schatzki's ring Hiatal hernia Hx of migraines History of multinodular goiter IBS (irritable bowel syndrome) GERD (gastroesophageal reflux disease) Dysphagia Chronic pain syndrome Spondylosis, lumbar, with myelopathy Sacroiliitis Surgical History History of bilateral tubal ligation Hx of dilation and curettage Hx of arthroscopy of right knee History of esophagogastroduodenoscopy (EGD) Hx of colonoscopy History of cholecystectomy Family History Father Unknown family medical history Mother Arthritis Diverticulitis Gastritis Breast cancer Chronic asthma Adenomatous colon polyp HTN (hypertension) Maternal Grandmother Colon cancer Daughter Hypothyroid Daughter Traveling blood clot in leg Obesity Prediabetes Social History Household Members: Spouse Housing: House Are you a primary director career to a significant other at home: No Do you presently have visiting nurse or other home services: No Alcohol intake: never Patient Tobacco Use Status: Former Tobacco user Tobacco use type: Cigarette Years Smoked: 18 service: No Current occupational status: employed 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 She was diagnosed with thyroid nodules at least dating back to 2016. She has had 2 biopsies of her left dominant superior 2.2 cm nodule in 2015 and 2019 which were both benign. Ultrasound thyroid 10/23/2024: I reviewed the images myself which show a heterogenous gland with increased vascularity, with multiple bilateral nodules. Right superior 0.9 cm solid isoechoic TR 3 nodule remained stable in size. Right superior 0.8 cm solid TR 3 nodule also remained stable in size. Right mid lobe 1.2 cm solid isoechoic TR 3 nodule also stable in size. Left mid to lower pole 2.5 cm solid isoechoic TR 3 nodule which is the dominant nodule that has been biopsied twice before and 2015 and 2019 and was benign is only somewhat increased in size. Left mid 0.6 cm solid isoechoic TR 3 nodule remained stable in size. Overall stable size of the nodules. TSH and free T4 normal from September 2024. She has had problems with compressive symptoms dating back at least since 2020. She had a barium swallow study in 2022 which showed possible achalasia, however she saw GI and it was thought that most of her GERD symptoms are due to hiatal hernia, status post repair in February 2024. She is complaining of worsening dysphagia. At this time she does explained that her symptoms are bothersome enough that she would consider surgery for them. I did explain to her that I am not really sure if her symptoms are related to her thyroid but possibly could be, but there is no guarantee about resolution of all of her symptoms after surgery. However reasonable to have surgical evaluation. I will refer her to Dr. Irina Rust at [facility] for further evaluation. I did discuss with her briefly risk of infection, bleeding, possible injury to parathyroid glands, need for levothyroxine post surgery in case of total thyroidectomy and 50% risk of hypothyroidism in case of Lobectomy. Plan: -surgical referral placed for Dr. Irina Rust at [facility] for evaluation for total thyroidectomy given multiple thyroid nodules versus left lobectomy given large left-sided nodule with compressive symptoms -discussed with patient to keep us updated once she has had her surgical evaluation -for now I will put her in for a follow up in June 2025, however if surgery is decided on she will inform us and then she will need a follow up 6 weeks postoperatively. -if she decides not to have surgery, plan would be to repeat ultrasound of the thyroid in September 2025. Plan See above Orders: Referrals General Surgery Referral E04.2 - Nontoxic multinodular goiter Patient Instructions: We are referring you to DR. Irina Rust at [facility] for surgical evaluation Please expect a call from their office within 3-4 weeks , if you have not heard from them within the next 4 weeks, please either call our office to follow up on the status of your referral or you can call their office directly at [phone] to schedule appointment Once you have had your appointment with him please call my office to let us know what was decided and your surgical date in case you decide on surgeyr in [facility] case we will plan to see you 6 weeks postoperatively. Coding Level of Care Code Est Pt Level 3 (74693) Diagnoses Non-toxic multinodular goiter E04.2
== END 2024-11-20 08:47 | disposition home or self-care (01) ==
LOC: HO.ENCR 08:03
PROVIDERS: PCP Registered Nurse; Visit Provider Student in an Organized Health Care Education/Training Program
DX: E04.2 Nontoxic multinodular goiter (principal)
CPT/HCPCS: 99213

== ENCOUNTER 2024-11-24 07:12 | Day surgery (SDC) | payer OTHER, SELFPAY ==
--- OUTSIDE RECORDS SUMMARY | 2024-11-10 11:49 | XMS_ITS | Encounter Summary ---
Author Organization [employer] Address [address] [facility] [address] [place] [address] Care Team Providers Care Hot Mill Supervisor Name Role Phone [facility] Primary Care Provider [phone] Reason for Visit * Reason Comments Med Refill Encounter Details Date Type Department Care Team ([facility] st Contact Info) Description 08/19/2023 Refill [facility] MEDICINE [address] [place] [address] [facility] [address] [place] [address] Fibromyalgia Social History Tobacco Use Types Packs/Day [...] documented as of this encounter Care Teams Hot Mill Supervisor Relationship Specialty Start Date End Date Tierney Goncalves FNP [address] [place] [id number] PCP - General Family Medicine 12/27/21 documented as of this encounter
[2024-11-24 07:44] VITALS: BP 97/51; PULSE 53; RESP 16; TEMP 36.2; O2SAT 96; BMI 22.7
--- NOTE | 2024-11-24 08:38 | MHC.SHP ---
Pre-Procedural Eval Section A - 24 Hr Update-Section A only Date of Service: 11/24/24 The patient is an INPATIENT: No Changes since office visit: No Cold of Flu in the past 2 weeks, No New Medical Problems, No Changes in Medication and No Patient answered all questions The patient has been examined within 24 hours of the surgical procedure. The History & Physical has been completed within 30 days and I have reviewed it.: Yes Section B - Complete if H&P > 30 days Chief Complaint: LT CARPAL TUNNEL SYNDROME Allergies: Allergies Allergy/AdvReac Type Severity Reaction Status Date / Time No Known Allergies (No Known Allergy Verified 11/20/24 08:11 Allergies*) Plan Diagnosis/Plan: Unchanged I have reviewed the history and physical and performed a pertinent physical examination on my patient. No changes have occurred unless specified. Time Spent With Patient Time: Total time managing care of this patient today ____ minutes.
--- NOTE | 2024-11-24 08:38 | W.PM.OPN ---
Operative Note Operative Note Date of Service: 11/24/24 Narrative: Preop diagnosis: 1. Left Carpal tunnel syndrome Postop diagnosis: same Procedure: 1. Left Carpal tunnel release Surgeon: Joy Soni MD Real Estate Specialist: None Anesthesia: local block using 1% lidocaine with epinephrine Findings: Thickened transverse carpal ligament. EBL: Less than 5 mL Specimens: None Complications: None Disposition: Brought to recovery room in stable condition Plan: Follow-up for 10-14 days for wound check and suture removal Indications: The patient is 64 years old, with left carpal tunnel syndrome that has been unresponsive to nonoperative management. The risks and benefits of operative treatment including but not limited to risk of damage to blood vessels, nerves, tendons, infection, persistent pain, persistent symptoms, or possible need for additional surgery were discussed with the patient and the patient wishes to proceed with surgery. Procedure: Once consent was obtained a local block was performed using a combination of 1% lidocaine with epinephrine. The patient was then brought back to the operating suite and placed on the operative table in supine position. The left upper extremity was prepped and draped in a standard surgical fashion. Once assured that we had a good block, a 2.0 cm longitudinal incision was made centered over the carpal tunnel. The incision was made through the skin to the subcutaneous tissues using a #15 blade. Dissection was made down to the level of the transverse carpal ligament with care being taken to protect the palmar cutaneous nerve. Once the transverse carpal ligament was clearly visualized, a longitudinal incision was made in the transverse carpal ligament 1st using a #15 blade, then using tenotomy scissors under direct visualization. Care was taken to look for and protect the motor branch of the median nerve when seen in this area. Once satisfied with our carpal tunnel release the wound was copiously irrigated with normal saline and hemostasis was obtained with a brief period of local pressure. The skin edges were reapproximated with some 5.0 nylon suture material and a sterile dressing was applied. The patient appears to have tolerated the procedure well and with no complications. All digits were well vascularized at the conclusion of the case.
[2024-11-24 09:23] VITALS: BP 105/60; PULSE 51; RESP 16; O2SAT 99
== END 2024-11-24 09:25 | disposition home or self-care (01) ==
PROVIDERS: PCP Registered Nurse; Visit Provider Orthopaedic Surgery
PROC: (CPT 64721; principal; 2024-11-24 12:50)
DX: G56.02 Carpal tunnel syndrome, left upper limb (principal); R20.0 Anesthesia of skin; R20.2 Paresthesia of skin; G89.4 Chronic pain syndrome; M79.7 Fibromyalgia; M46.1 Sacroiliitis, not elsewhere classified; M47.16 Other spondylosis with myelopathy, lumbar region; E78.00 Pure hypercholesterolemia, unspecified; E06.3 Autoimmune thyroiditis; E04.2 Nontoxic multinodular goiter; R63.4 Abnormal weight loss; Z68.22 Body mass index [BMI] 22.0-22.9, adult; Z98.890 Other specified postprocedural states; Z87.891 Personal history of nicotine dependence
CPT/HCPCS: 64721; J0165; J2003

== ENCOUNTER → 2024-11-24 07:12 | Outpatient (BNV) | payer OTHER, SELFPAY | PROVIDERS: PCP Registered Nurse; Visit Provider Orthopaedic Surgery | DX: G56.02 Carpal tunnel syndrome, left upper limb (principal) | CPT/HCPCS: 64721 ==

== ENCOUNTER 2024-11-25 13:58 | Outpatient (AMB) | payer OTHER, SELFPAY ==
[2024-11-25 14:16] VITALS: BP 110/62; PULSE 58; O2SAT 98; BMI 22.3
--- NOTE | 2024-11-25 14:16 | A.OFFVIS_ITS ---
Vital Signs 11/25/24 14:16 Height 5 ft 3 in Weight 126 lb BMI 22.3 BP 110/62 Blood Pressure Location Rt brachial Position Sitting Pulse 58 Pulse Source Pulse Oximeter Pulse Oximetry (%) 98 Oxygen Delivery Method Room Air Intake Visit Reasons: LEFT INTRA-ARTICULAR SHOULDER INJECTION Intake Note: Pain today 5/10 Manager Dairy Required: No Accompanied by: Self / Same As Patient Allergies No Known Allergies (No Known Allergies*) Allergy (Verified 11/25/24 14:17) HPI Comments Details: The patient is a 64-year-old female presenting with left shoulder pain. The pain was initially managed with a steroidal injection, which provided minimal relief, reducing the pain to a level of 5/10. The patient reports limited range of motion, particularly with overhead activities, and has been unable to perform tasks with personal care or daily activities. She had to cut such her hair due to the pain. The patient also reports chronic neck pain, which has been persistent and previously evaluated with successful diagnostic injections in July. The neck pain is described as sharp and is located between the shoulder blades. A psychological evaluation was recently completed at [facility] as part of the management plan for the neck pain. Additionally, the patient has a history of carpal tunnel syndrome, for which she underwent surgery recently on one hand and plans to have the other hand operated on in the future. She has been taking Vicodin status post hand procedure and finds partial relief in her shoulder, neck and back symptoms. The patient also experiences lower back pain, which she describes as sharp and has been present for some time. She has previously received injections for her back pain, which she would like to address after neck procedures. - Left shoulder pain: Initially managed with steroidal injection, minimal relief, pain level reduced to five out of ten - Neck pain: Sharp, located between shoulder blades, persistent - Lower back pain: Sharp, persistent, previously managed with injections - Affect: Pain impacting mood, causing frustration - Analgesia: Current medications include Tylenol, duloxetine increased to 60 mg, and Vicodin recently prescribed s/p carpal tunnel release - Adverse Effects: No specific adverse effects reported - Activities of Daily Living: Pain limits ability to perform tasks such as cutting hair and sleeping on affected side - Aberrant Drug Related Behaviors: No aberrant behaviors reported PRIOR: The patient is a 64-year-old female presenting with chronic low back pain and leg pain. The pain predominantly affects the lower spine and is exacerbated by activities and sitting. Her pain stems from severe degenerative arthritis and lumbar disc degeneration at L5-S1, leading to nerve root compression. The chronic pain radiates to the buttocks and posterior leg, impacting her daily activities and sleep. Weather changes further exacerbate her condition. The patient engages in minimal physical activity and denies recent trauma contributing to the pain's onset. Her functional status is impaired due to the pain, with incidents of leg instability. Previous interventions like spinal injections (diagnostic lumbar medial branch blocks, therapeutic hip and SI joint injections, and ESIs) and attempts at spinal cord stimulation offered minimal relief. Reports incontinence episodes and 1 recent bowel incontinence during [id number] low back pain upon getting and walking. Patient request neurosurgical evaluation to address her disabling low back pain. She also suffers from chronic arthritic neck pain and awaits psychological clearance from [facility] to proceed with Sprint PNS trial to address her neck pain. Denies any recent cough, cold, infection, fever or any other significant changes in medical history since last office visit. - Affect: Reports significant impact on mood and mobility; disturbances in sleep - Analgesia: Previous spinal injections provided short-term relief; ongoing chronic pain - Adverse Effects: None from medication mentioned; notes issues with instability and balance due to pain - Activities of Daily Living: Difficulty with mobility, particularly stair climbing; uses shopping cart for stability while grocery shopping - Aberrant Drug-Related Behaviors: None reported PRIOR: The patient is a 64-year-old female presenting with persistent right knee pain. An ultrasound-guided femoral nerve block was performed by Dr. Azul, which provided 80% relief on the day of the injection but did not extend beyond 24 hours. The patient experienced temporary reduction in pain levels to 2/10 but returned to higher pain levels the following mid day. She continually experiences right knee pain, which has been the primary focus of this visit. The patient also reports episodic neck pain, characterized mainly as uncomfortable. The patient has expressed concern about tingling and numbness and has an upcoming EMG scheduled to further assess these symptoms. For the left shoulder pain, an injection with fluoroscopic guidance has been set in October. Future management will include potential Sprint PNS therapy, and for the neck issue, treatments are being prepared. - Onset: Chronic knee pain, with specific focus on right knee pain addressed by nerve block. - Quality and Character: Described as resistant to earlier pain management but responsive to initial procedural intervention. - Primary Location: Right knee; occasional reports of neck discomfort and shoulder pain. - Exacerbating Factors: Ongoing activity likely exacerbates the knee pain. - Relieving Factors: Nerve block provided temporary relief; subsequent oral medications (Tylenol) and diclofenac gel offered minimal relief. - Interference: Pain impacts daily functioning, necessitating ongoing management strategies. - Affect: Discussed management of knee and neck pain; impact on patient's overall mood not explicitly detailed. - Analgesia: Nerve block successfully reduced pain to 2/10 for 24 hours; additional oral medications provided slight relief following initial intervention. - Adverse Effects: None discussed related to pain medication. - Activities of Daily Living: Knee pain primarily affects daily activities, leading to consultations for enhanced intervention. - Aberrant Drug Related Behaviors: None reported or discussed. Past Procedures: 09/12/24: Right diagnostic femoral nerve block under sedation-80% pain relief for 24 hours 08/26/24: Bilateral Diagnostic C4-C5-C6 MBB-80-90% pain relief for 6 hours PFS Medical History Cervical high risk HPV (human papillomavirus) test positive Fibromyalgia Elevated cholesterol Weight loss Karina's disease Non-toxic multinodular goiter Osteoarthritis of left hip Schatzki's ring Hiatal hernia Hx of migraines History of multinodular goiter IBS (irritable bowel syndrome) GERD (gastroesophageal reflux disease) Dysphagia Chronic pain syndrome Spondylosis, lumbar, with myelopathy Sacroiliitis Surgical History History of bilateral tubal ligation Hx of dilation and curettage Hx of arthroscopy of right knee History of esophagogastroduodenoscopy (EGD) Hx of colonoscopy History of cholecystectomy Family History Father Unknown family medical history Mother Arthritis Diverticulitis Gastritis Breast cancer Chronic asthma Adenomatous colon polyp HTN (hypertension) Maternal Grandmother Colon cancer Daughter Hypothyroid Daughter Traveling blood clot in leg Obesity Prediabetes Social History Household Members: Spouse Housing: House Are you a primary career services manager to a significant other at home: No Do you presently have visiting nurse or other home services: No Alcohol intake: never Patient Tobacco Use Status: Former Tobacco user Tobacco use type: Cigarette Years Smoked: 20 service: No Current occupational status: employed 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 Alert and oriented. Mood and affect appropriate. Follows and participates in conversation appropriately. Respiratory effort is unlabored. No cough. Able to transition from sit to stand unassisted. Ambulates with bilaterally normal heel strike and toe off. Neck Neck: Yes no lymphadenopathy, No anterior neck swelling, Yes no JVD and No prominent dorsocervical fat pad Back/Spine/Pelvis Cervical Spine: No Lhermitte's sign positive, loss of normal cervical lordosis, cervical muscular tenderness, pain with cervical ROM (lateral rotations and extension), cervical spasm (left>right), No Cervical spine tenderness and No step off deformity Thoracic/Lumbar Spine: thoracic and lumbar spine normal to inspection, Lasegue's sign positive bilateral and localized, pain with thoraco-lumbar ROM, paraspinal muscle tenderness, thoraco-lumbar ROM limited, No thoracic spinal tenderness, lumbar spinal tenderness (L3-S1) and straight leg raise positive bilateral at 40 degrees Pelvis: buttock tenderness bilaterally and sciatic notch tenderness bilateral Sacroiliac joints: bilaterally tender to palpation Extrem General: Yes capillary refill normal, Yes no clubbing, cyanosis or edema and Yes no calf tenderness Assessment & Plan Assessment & Plan (1) Painful arc syndrome of right shoulder: Code(s): M75.101 - Unspecified rotator cuff tear or rupture of right shoulder, not specified as traumatic Category: Medical (2) Left shoulder pain: Code(s): M25.512 - Pain in left shoulder Category: Medical (3) Osteoarthritis of left shoulder: Code(s): M19.012 - Primary osteoarthritis, left shoulder Category: Medical (4) Cervical spondylosis: Code(s): M47.812 - Spondylosis without myelopathy or radiculopathy, cervical region Category: Medical (5) Chronic low back pain: Code(s): M54.50 - Low back pain, unspecified; G89.29 - Other chronic pain Category: Medical Plan The patient will be referred to Orthopedics for further evaluation of the left shoulder pain, as the response to steroidal injections has been minimal. For chronic neck pain, the patient has completed a psychological evaluation, which is required by insurance before proceeding with further interventions such as the Sprint device. The plan is to proceed with bilateral C4 medial branch Sprint PNS trial pending psychological clearance. Expectations, risks and benefits were reviewed. Patient is aware she will be contacted to schedule this procedure. Continue current medications, including duloxetine and lidocaine patches as needed. All questions and concerns have been answered and patient agreed with the plan. Follow up as needed. Patient was informed and verbally consented to the use of an ambient scribe for clinic note documentation during this visit. Orders: Referrals Orthopedics Referral M19.012 - Primary osteoarthritis, left shoulder, M25.512 - Pain in left shoulder, M75.101 - Unspecified rotator cuff tear or rupture of right shoulder, not specified as traumatic Coding Level of Care Code Est Pt Level 4 (21570) Complex EM visit Add On G2211 Diagnoses Painful arc syndrome of right shoulder M75.101 Left shoulder pain M25.512 Osteoarthritis of left shoulder M19.012 Cervical spondylosis M47.812 Chronic low back pain M54.50; G89.29
--- OUTSIDE RECORDS SUMMARY | 2024-11-25 14:42 | XMS_ITS | Encounter Summary ---
Author Organization [facility] Address [address] [place] [phone] Phone Care Team Providers Care Paper Ruler Name Role Phone Pcp, Unknown Primary Care Provider Unavailabl e Tierney Goncalves Primary Care Provider [phone] Encounter Details Date Type Department Care Team (Late st Contact Info) Description 07/24/2023 Procedure Pass [facility] Endoscopy Admitting Dept Virtual Department [address] [place] [address] Social History Tobacco Use Types Packs/Day Years [...] on filedocumented in this encounter Care Teams Paper Ruler Relationship Specialty Start Date End Date Pcp, Unknown PCP - General 04/17/23 07/30/23 Tierney Goncalves FNP [address] [place] [address] PCP - General Nurse Practitioner 07/31/23 documented as of this encounter Additional Source Comments The information contained in this document represents components of the legal health record. It is not the complete legal health record.[facility]
== END 2024-11-25 14:28 | disposition home or self-care (01) ==
LOC: HO.PMC 13:59
PROVIDERS: PCP Registered Nurse; Visit Provider Nurse Practitioner Family
DX: M75.101 Unspecified rotator cuff tear or rupture of right shoulder, not specified as traumatic (principal); M25.512 Pain in left shoulder; M19.012 Primary osteoarthritis, left shoulder; M47.812 Spondylosis without myelopathy or radiculopathy, cervical region; M54.50 Low back pain, unspecified; G89.29 Other chronic pain
CPT/HCPCS: 99214; G2211

== ENCOUNTER 2024-12-09 08:45 | Outpatient (AMB) | payer OTHER, SELFPAY ==
[2024-12-09 08:49] VITALS: BMI 22.3
--- NOTE | 2024-12-09 08:49 | A.OFFVIS_ITS ---
Vital Signs 12/09/24 08:49 Height 5 ft 3 in Weight 126 lb BMI 22.3 Intake Visit Reasons: PO-Lt CTR 11/24/24 Intake Note: Adela is a 64 year old left hand dominant female who presents today for their first post-operative visit status post left carpel tunnel release, DOS: 11/24/[address] Soni. Patient reports a new onset of left radial wrist pain and left thumb catching. Denies any pain. Denies numbness, tingling. She has discontinued pain meds at this time. Sutures removed and steri strips applied. Allergies No Known Allergies (No Known Allergies*) Allergy (Verified 12/09/24 08:50) HPI HPI PO-Lt CTR 11/24/24: Details: Adela is a 64 year old left hand dominant female who presents today for their first post-operative visit status post left carpel tunnel release, DOS: 11/24/[address] Soni. Patient reports a new onset of left radial wrist pain and left thumb catching. Patient states she has had an injection in his area previously, approximately 8-9 months ago, with good relief until approximately 2-3 weeks ago. Denies any pain. Denies numbness, tingling. She has discontinued pain meds at this time. Sutures removed and steri strips applied. [facility] Medical History Cervical high risk HPV (human papillomavirus) test positive Fibromyalgia Elevated cholesterol Weight loss Karina's disease Non-toxic multinodular goiter Osteoarthritis of left hip Schatzki's ring Hiatal hernia Hx of migraines History of multinodular goiter IBS (irritable bowel syndrome) GERD (gastroesophageal reflux disease) Dysphagia Chronic pain syndrome Spondylosis, lumbar, with myelopathy Sacroiliitis Surgical History History of bilateral tubal ligation Hx of dilation and curettage Hx of arthroscopy of right knee History of esophagogastroduodenoscopy (EGD) Hx of colonoscopy History of cholecystectomy Family History Father Unknown family medical history Mother Arthritis Diverticulitis Gastritis Breast cancer Chronic asthma Adenomatous colon polyp HTN (hypertension) Maternal Grandmother Colon cancer Daughter Hypothyroid Daughter Traveling blood clot in leg Obesity Prediabetes Social History Household Members: Spouse Housing: House Are you a primary pharmacy care coordinator to a significant other at home: No Do you presently have visiting nurse or other home services: No Alcohol intake: never Patient Tobacco Use Status: Former Tobacco user Tobacco use type: Cigarette Years Smoked: 18 service: No Current occupational status: employed 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 Neuro: Normal sensation of the tips of all digits of the bilateral hand at this time Vascular: Cap refill brisk Pain: Very mild tenderness to palpation about the 1st dorsal compartment on the left side The positive Taurus in the left No tenderness to palpation about the incision site on the volar left wrist ROM: Patient is able to make a closed fist and extend all digits of both hands fully Range of motion of bilateral wrists full and intact, but slightly painful Skin: No lacerations or abrasions. General: No ecchymosis, erythema, or evidence of infection. Psych: Appears grossly normal Affect normal Attitude cooperative Assessment & Plan Assessment & Plan (1) De Quervain's tenosynovitis, left: Code(s): M65.4 - Radial styloid tenosynovitis [de Quervain] Category: Medical (2) Bilateral carpal tunnel syndrome: Code(s): G56.03 - Carpal tunnel syndrome, bilateral upper limbs Category: Medical Plan 1. Status post left carpal tunnel release DOS 11/24/2024 Patient appears to be recovering well postoperatively Patient is educated about the typical recovery course No under water for one-week, 2 lb weight limit for 2 weeks No acute follow-up indicated, as patient appears to be recovering very well Patient is amenable to this plan 2. Right carpal tunnel syndrome Intermittent, daily, worse at night Patient would like to hold off on operative intervention for the right side at this time, as she needs to care for her mother and can not have her right hand incapacitated so soon after the left Patient is educated on the potential risks of prolonging treatment for carpal tunnel syndrome Patient understands these risks 3. De Quervain tenosynovitis, left Patient is educated about this condition Patient is educated on the typical treatment options, including but not limited to bracing, OT, injections, or surgery Patient would like to try a repeat injection, however patient is educated we will have to wait a few weeks until the incision on her left wrist has healed fully before injecting steroid into the area Patient understands this in his amenable to this plan Follow-up in 4-6 weeks for left de Quervain tenosynovitis injection, sooner with any acute concerns Coding Level of Care Code Est Pt Level 3 (44725) Diagnoses De Quervain's tenosynovitis, left M65.4 Bilateral carpal tunnel syndrome G56.03
--- OUTSIDE RECORDS SUMMARY | 2024-12-09 09:03 | XMS_ITS | Encounter Summary ---
Author Organization [employer] Address [address] [facility] [address] [place] [address] Care Team Providers Care Third Loader Name Role Phone [facility] Primary Care Provider [phone] Reason for Visit * Reason Comments Med Refill Encounter Details Date Type Department Care Team ([facility] st Contact Info) Description 08/19/2023 Refill [facility] [address] [place], [place] [phone] [facility] [address] [place] [address] Fibromyalgia Social History Tobacco Use Types Packs/Day [...] documented as of this encounter Care Teams Third Loader Relationship Specialty Start Date End Date Tierney Goncalves FNP [address] [place] [id number] PCP - General Family Medicine 12/27/21 documented as of this encounter
--- OUTSIDE RECORDS SUMMARY | 2024-12-09 09:03 | XMS_ITS | Encounter Summary ---
Author Organization [facility] Address [address] [place] [phone] Phone Care Team Providers Care Magnet Maker Name Role Phone Pcp, Unknown Primary Care Provider Unavailabl e Tierney Goncalves Primary Care Provider [phone] Encounter Details Date Type Department Care Team (Late st Contact Info) Description 07/24/2023 Procedure Pass [facility]oscopy Admitting Dept Virtual Department [address] [place] [address] Social History Tobacco Use Types Packs/Day Years [...] on filedocumented in this encounter Care Teams Magnet Maker Relationship Specialty Start Date End Date Pcp, Unknown PCP - General 04/17/23 07/30/23 Tierney Goncalves FNP [address] [place] [address] PCP - General Nurse Practitioner 07/31/23 documented as of this encounter Additional Source Comments The information contained in this document represents components of the legal health record. It is not the complete legal health record.[facility]
== END 2024-12-09 09:08 | disposition home or self-care (01) ==
LOC: HO.HOS 08:46
PROVIDERS: PCP Registered Nurse
DX: M65.4 Radial styloid tenosynovitis [de Quervain] (principal); G56.03 Carpal tunnel syndrome, bilateral upper limbs
CPT/HCPCS: 99024

== ENCOUNTER 2025-01-12 08:29 | Outpatient (REF) | payer OTHER, SELFPAY ==
--- OUTSIDE RECORDS SUMMARY | 2025-01-12 09:32 | XMS_ITS | Encounter Summary ---
Author Organization [employer] Address [address] [place] [address] Care Team Providers Care Pet Supplies Salesperson Name Role Phone [facility] Primary Care Provider [phone] Reason for Visit * Reason Comments Med Refill Encounter Details Date Type Department Care Team ([facility] st Contact Info) Description 08/19/2023 Refill [facility] [address] [place], [place] [phone] [facility] [address] [place] [address] Fibromyalgia Social History Tobacco Use Types Packs/Day [...] documented as of this encounter Care Teams Pet Supplies Salesperson Relationship Specialty Start Date End Date Tierney Goncalves FNP [address] [place] [id number] PCP - General Family Medicine 12/27/21 documented as of this encounter
--- OUTSIDE RECORDS SUMMARY | 2025-01-12 09:32 | XMS_ITS | Encounter Summary ---
Author Organization [employer] Address [address] [facility] [address] [place] [address] Care Team Providers Care Ready Mix Truck Driver Name Role Phone [facility] Primary Care Provider [phone] Reason for Visit * Reason Comments Med Refill Encounter Details Date Type Department Care Team ([facility] st Contact Info) Description 03/13/2023 Refill [facility] [address] [place] [address] [facility] [address] [place] [address] Social History Tobacco Use Types Packs/Day Years [...] documented as of this encounter Care Teams Ready Mix Truck Driver Relationship Specialty Start Date End Date Tierney Goncalves FNP [address] [place] [phone] PCP - General Family Medicine 12/27/21 documented as of this encounter
--- OUTSIDE RECORDS SUMMARY | 2025-01-12 09:32 | XMS_ITS | Encounter Summary ---
Author Organization [employer] Address [address] [facility]t [place] [address] Care Team Providers Care Research Director Name Role Phone Tierney Goncalves CONVEYOR LINE BATTERY CHARGER Primary Care Provider [phone] Encounter Details Date Type Department Care Team (Late st Contact Info) Description 08/08/2023 Orders Only [facility] MEDICINE [address] [place] [address] ProviderEvon MD Social History Tobacco Use Types [...] documented as of this encounter Care Teams Research Director Relationship Specialty Start Date End Date Tierney Goncalves FNP [address] [place] [address] PCP - General Family Medicine 12/27/21 documented as of this encounter
--- OUTSIDE RECORDS SUMMARY | 2025-01-12 09:32 | XMS_ITS | Encounter Summary ---
Author Organization [facility] Address [address] [place] [address] Phone Care Team Providers Care Recreational Therapy Technician Name Role Phone Pcp, Unknown Primary Care Provider Unavailabl e Tierney Goncalves Primary Care Provider [phone] Encounter Details Date Type Department Care Team (Late st Contact Info) Description 07/24/2023 Procedure Pass [facility] Endoscopy Admitting Dept Virtual Department [address] [place] [address] Social History Tobacco Use Types Packs/Day Years [...] on filedocumented in this encounter Care Teams Recreational Therapy Technician Relationship Specialty Start Date End Date Pcp, Unknown PCP - General 04/17/23 07/30/23 Tierney Goncalves FNP [address] [place] [address] PCP - General Nurse Practitioner 07/31/23 documented as of this encounter Additional Source Comments The information contained in this document represents components of the legal health record. It is not the complete legal health record.[facility]
--- OUTSIDE RECORDS SUMMARY | 2025-01-12 09:32 | XMS_ITS | Encounter Summary ---
Author Organization [employer] Address 75 [facility] 7t [place] [address] Care Team Providers Care Manager Crisis Name Role Phone Ivanna [facility] Primary Care Provider [phone] Reason for Visit * Reason Onset Date Comments ER Follow-up 08/05/2024 Nurse Triage 08/05/2024 Encounter Details Date Type Department Care Team (Late st Contact Info) Description 08/05/2024 Telephone [facility] [address] [place] [address] [place] [facility] [address] [place], [place] [phone] ER Follow-up; Nurse Triage Social History Tobacco [...] your housing situation today? I have dale hernadnez 02/15/[address] you li [...] 08/05/2024 10:11 AM EDT Date: 08/04/24 Hospital: [facility] Seen for: elevated liver function Symptomatic Yes, can't really eat due to feeling nauseous Pt. States was told needs liver function testing within 48 hours. Called pt. She states she started feeling sick to her stomach x 2 days ago. Pt. Had vomiting ,diarrhea, and chills. Pt went to [facility] ED on 08/04/24. Provider in [...] pt. Chart but I do not see [facility] ED note in chart. Will send request for [facility] ED report from 08/04/24 to [...] For 08/06/24 at 930am with Harika Mensah CONSULTING PRACTICE MANAGER for [facility] ED FU and discussion to [...] ED visit on : Date: 08/04/24 Hospital: [facility] Seen for: elevated liver function [...] as of this encounter Care Teams Manager Crisis Relationship Specialty Start Date End Date Tierney Goncalves FNP [address] [place] [phone] PCP - General Family Medicine 12/27/21 documented as of this encounter
--- OUTSIDE RECORDS SUMMARY | 2025-01-12 09:32 | XMS_ITS | Encounter Summary ---
Author Organization [facility] Address [address] [place] [address] [place] [address] Phone Care Team Providers Care Paperboard Box Maker Name Role Phone Tierney Goncalves Primary Care Provider [phone] Encounter Details Date Type Department Care Team (Late st Contact Info) Description 07/31/2023 Procedure Pass [facility] Endoscopy Admitting Dept Virtual Department [address] [place] [address] Social History Tobacco Use Types Packs/Day Years [...] on filedocumented in this encounter Care Teams Paperboard Box Maker Relationship Specialty Start Date End Date Tierney Goncalves FNP [address] [place] [address] PCP - General Nurse Practitioner 07/31/23 documented as of this encounter Additional Source Comments The information contained in this document represents components of the legal health record. It is not the complete legal health record.[facility]
--- OUTSIDE RECORDS SUMMARY | 2025-01-12 09:32 | XMS_ITS | Encounter Summary ---
Author Organization [employer] Address [address] [facility] [address] 7[address] [place] [address] Care Team Providers Care Tank Calibrator Name Role Phone Tierney Goncalves CONCRETE BATCH PLANT OPERATOR Primary Care Provider [phone] Encounter Details Date Type Department Care Team (Late st Contact Info) Description 11/13/2023 Orders Only [facility] MEDICINE [address] [place] [address] ProviderEvon MD Social History Tobacco Use Types [...] documented as of this encounter Care Teams Tank Calibrator Relationship Specialty Start Date End Date Tierney Goncalves FNP [address] [place] [address] PCP - General Family Medicine 12/27/21 documented as of this encounter
--- OUTSIDE RECORDS SUMMARY | 2025-01-12 09:32 | XMS_ITS | Encounter Summary ---
Author Organization [employer] Address 75 [facility] [address] [address] Care Team Providers Care Paramedic Name Role Phone [facility] Primary Care Provider [phone] Encounter Details Date Type Department Care Team ([facility] st Contact Info) Description 05/16/2022 Telephone [facility] [address] [place], [place] [phone] [facility] [address] [place], [place] [phone] Social History Tobacco Use Types Packs/Day Years [...] on filedocumented in this encounter Care Teams Paramedic Relationship Specialty Start Date End Date Tierney Goncalves FNP [address] [place] [address] PCP - General Family Medicine 12/27/21 documented as of this encounter
--- OUTSIDE RECORDS SUMMARY | 2025-01-12 09:32 | XMS_ITS | Encounter Summary ---
Author Organization [employer] Address [address] [facility] [address] [place] [address] Care Team Providers Care Manager Functional Name Role Phone Tierney Goncalves DRAFTER CHIEF DESIGN Primary Care Provider [phone] Encounter Details Date Type Department Care Team (Late st Contact Info) Description 08/05/2024 Orders Only [facility] CHC MED & PEDS [address] [place] [address] ProviderEvon MD Social History Tobacco Use Types [...] as of this encounter Care Teams Manager Functional Relationship Specialty Start Date End Date Tierney Goncalves FNP [address] [place] [address] PCP - General Family Medicine 12/27/21 documented as of this encounter
--- OUTSIDE RECORDS SUMMARY | 2025-01-12 09:32 | XMS_ITS | Encounter Summary ---
Author Organization [employer] Address 75 [facility] 7t [place] [address] Care Team Providers Care Litharge Supervisor Name Role Phone Tierney Goncalves CUSTOMER SERVICE ADMINISTRATOR Primary Care Provider [phone] Reason for Visit * Reason Onset Date Comments case clarification 07/31/2023 Encounter Details Date Type Department Care Team ([facility] st Contact Info) Description 07/31/2023 Telephone [facility] [address] [place] [address] Camron Rios DDS [address] [place], [place] [phone] case clarification Social History Tobacco Use Types [...] documented as of this encounter Care Teams Litharge Supervisor Relationship Specialty Start Date End Date Tierney Goncalves FNP [address] [place] [address] PCP - General Family Medicine 12/27/21 documented as of this encounter
--- OUTSIDE RECORDS SUMMARY | 2025-01-12 09:32 | XMS_ITS | Encounter Summary ---
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
--- OUTSIDE RECORDS SUMMARY | 2025-01-12 09:32 | XMS_ITS | Encounter Summary ---
Author Organization [employer] Address 75 [facility] 7[facility] [place] [address] Care Team Providers Care Elephant Keeper Name Role Phone [facility] Primary Care Provider [phone] Reason for Visit * Reason Comments Med Refill Encounter Details Date Type Department Care Team ([facility] st Contact Info) Description 07/21/2022 Refill [facility] MEDICINE [address] [place] [address] [facility] 230 [place] [address] Joint pain in both hands Social History [...] documented as of this encounter Care Teams Elephant Keeper Relationship Specialty Start Date End Date Tierney Goncalves FNP [address] [place] [address] PCP - General Family Medicine 12/27/21 documented as of this encounter
--- OUTSIDE RECORDS SUMMARY | 2025-01-12 09:33 | XMS_ITS | Encounter Summary ---
Author Organization [employer] Address 75 [facility] 7t [place] [address] Care Team Providers Care Equipment Monitor Phototypesetting Name Role Phone [facility] Primary Care Provider [phone] Reason for Visit * Reason Onset Date Comments Prior Authorization 05/16/2024 Encounter Details Date Type Department Care Team (Late st Contact Info) Description 05/16/2024 Telephone [facility] CHC MED & PEDS [address] [place] [address] [facility] [address] [place] [address] Prior Authorization Social History Tobacco Use Types [...] documented as of this encounter Care Teams Equipment Monitor Phototypesetting Relationship Specialty Start Date End Date Tierney Goncalves FNP [address] [place] [address] PCP - General Family Medicine 12/27/21 documented as of this encounter
--- OUTSIDE RECORDS SUMMARY | 2025-01-12 09:33 | XMS_ITS | Clinical Summary ---
Author Organization [facility] Address [address] [address] Phone Care Team Providers Care Lab Rep Name Role Phone Tierney Goncalves SWETA Primary Care Provider [phone] Social History Tobacco Use Types Packs/Day Years [...] on file Sexual Orientation Not on file Plan of Treatment Health Maintenance Due Date Last Done Comments LIPID PANEL 1962 DEPRESSION SCREENING 1974 SMOKING Hx and SMOKELESS TOBACCO SCREENING 1975 HEPATITIS C SCREENING 01/27/1980 HIV ONE-TIME SCREENING (18-6 5 YEARS) 01/27/1980 PAP SMEAR 1983 COLOGUARD 2007 COLONOSCOPY 2007 COLORECTAL CANCER SCREENING 2007 FIT TEST 2007 FOBT 2007 SIGMOIDOSCOPY 2007 VIRTUAL COLONOSCOPY 2007 PNEUMOCOCCAL VACCINES (50+ years) (1 of 1 - PCV) 01/27/2012 ZOSTER VACCINES (1 of 2) 01/27/2012 Adult Td,Tdap Booster 10/12/2024 10/12/2014 INFLUENZA VACCINE (#1) 2024 COVID-19 VACCINE ( - 2023-2 5 season) 2024 MAMMOGRAM 03/16/2025 03/16/2023, 10/02/2018 RSV VACCINE (1 - 1-dose 75+ series) 2037 HEPATITIS A VACCINES Aged Out No long er eligible based on patient's age to complete this topic HIB VACCINES Aged Out No longer eligi ble based on patient's age to complete this topic MENINGOCOCCAL VACCINES (ACWY) Aged Out No longer eligible based on patient's age to complete this topic MENINGOCOCCAL VACCINES (B) Aged Out N o longer eligible based on patient's age to complete this topic Medical Devices Not on file Insurance [facility] Care Teams Lab Rep Relationship Specialty Start Date End Date Tierney Goncalves FNP [address] [place] [phone] PCP - General Nurse Practitioner 07/31/23 Additional Source Comments The information contained in this document represents components of the legal health record. It is not the complete legal health record.[facility]
--- OUTSIDE RECORDS SUMMARY | 2025-01-12 09:33 | XMS_ITS | Clinical Summary ---
Author Organization [employer] Address [address] [facility] [address] [place] [address] Care Team Providers Care Social Service Director Name Role Phone Tierney Goncalves IC DESIGN MANAGER Primary Care Provider [phone] Allergies No known active allergies Medications * This document contains information received from the source organization and may not represent a complete record from that organization. omeprazole (PriLOSEC) [address] capsule Take 1 capsule by mouth. Active Diclofenac Sodium 1 % gelIndications: Joint pain in both hands Apply topically to affected areas twice daily 150 g 1 3 Active capsaicin (Zostrix) 0.025 % creamIndication s:Joint pain in both hands APPLY TOPICALLY TWICE DAILY TO THE AFFECTED AREA 60 g 3 Active amitriptyline (Elavil) 10 MG tabletIndicatio ns:Fibromyalgia TAKE 1/2 TABLET BY MOUTH AT BEDTIME 15 tablet 3 4 Active ibuprofen 800 MG tablet TAKE 1 TABLET BY MOUTH EVERY 8 HOURS NEEDED FOR MILD PAIN 45 tablet 1 4 Active lidocaine (Xylocaine) 5 % ointmentIndicat ions:Fibromyalg ia Apply topically Once per day. APPLY TOPICALLY TO THE AFFECTED AREA 1 -4 TIMES EVERY DAY IF NEEDED 60 g 1 5 Active topiramate 50 MG tabletIndicatio ns:Migraine without aura, not refractory TAKE 1 TABLET BY MOUTH EVERY MORNING 30 tablet 3 5 Active DULoxetine (Cymbalta) [address] capsuleIndicati ons:Fibromyalgi a Take 1 capsule (60 mg) by mouth Once per day. Do not crush or chew. 30 capsule 11 5 09/25/19 26 Active diphenhydrAMINE (Banophen) 25 MG capsuleIndicati ons:Seasonal allergies TAKE 1 CAPSULE BY MOUTH AT NIGHT NEEDED 30 capsule 1 5 Active acetaminophen (Tylenol 8 Hour) 650 MG ER tablet TAKE 1 TABLET BY MOUTH EVERY 8 HOURS NEEDED. SWALLOW WHOLE WITH WATER. 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 Chatterjee Abnormal uterine bleeding (AUB) 12/12/2022 Overview (12/12/2022): Negative EMB 09/01/22 Followed by [facility] LAT[facility] PROFESSOR Mixed hyperlipidemia 05/26/2022 Overview (05/26/2022): 03/2022 ASCVD 2.8% Diet controlled Healthcare maintenance 04/02/2022 Overview (08/15/2023): Mammo: 02/2023 bi-rads 2 Pap: 05/2021 though [facility] PROFESSOR, NIL HPV +'colpo PADMINI 1, repeat co-testing due 09/2023 C-scope: 2017, has upcoming appointment BMD: Routine age 67 HCV Screen: Neg 2016 HIV Screen: Neg 2015 Immunizations: declines COVID booster today. Otherwise UTD Screening Labs: A1c-4.8, 2020 Assessment & Plan (04/02/2022 1:22 PM EST): Mammo: 02/2022 bi-rads 2, repeat 02/2023 Pap: 05/2021 though [facility] ADJ[facility] LATIN PROFESSOR, NIL HPV +, pt does not now what follow up is scheduled with Dr. Sen Dumontscope: 2017 BMD: Routine age 67 HCV Screen: Neg 2015 HIV Screen: Neg 2015 Immunizations: Accepts flu, declines COVID booster today. Otherwise UTD Screening Labs: A1c-4.8, 2020 Lipids: Ordered today CMP: Ordered today Migraine without aura, not refractory 03/16/2022 Overview (05/26/2022): Topiramate 50mg for prevention Osteoarthritis of right knee 04/25/2019 Dysphagia 10/03/2018 Overview (05/16/2023): Hx of persistent dysphagia and early satiety - Followed by [facility] GI with previously benign EGD w/ esophageal spasm, negative gastric emptying study, neg. H.pylori biopsy Osteoarthritis of facet joint of lumbar spine Overview (05/18/2022): - Hx of sacroilitis - Previously seen by [facility] ortho and pain mngmt; has received numerous steroid injections with minimal sx improvement. Has tried PT for various concerns without improvement. - Is not currently followed by ortho or pain mngmt Non-toxic multinodular goiter 07/20/2017 Overview (05/18/2022): Benign multi-nodular goiter followed by [facility] endo. Per lats visit note 08/2021, patient to reconsider thyroidectomy if sx of dysphagia worsen; has follow up in 6 months - Per chart review pt was referred to [place] for possible thyroidectomy however pt does not have transportation. Insurance barriers limit more local access. -FNA of left mid pole nodule on 04/20/16 consistent with benign follicular nodule. 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 Per visit note plan to monitor q. 6 months and consider biopsy if WBC count < 2 or development of B sx Diffuse spasm of esophagus 05/17/2016 Fibromyalgia 04/28/2016 Overview (01/02/2023): Duloxetine 40mg daily Amitriptyline 10mg at bedtime Chronic back pain, shoulder pain Hx of sacroilitis Previously seen by [facility] ortho and pain mngmt; has received numerous steroid injections with minimal sx improvement. Has tried PT for various concerns without improvement. Negative ESR, CRP, negative CCP antibodies. Negative hand x-rays Assessment & Plan (01/02/2023 1:44 PM EDT): Encouraged daily walking Continue current medication regimen Will refer back to pain mngm re chronic neck pain Encouraged acupuncture clinic Assessment & Plan (09/17/2022 12:48 PM EDT): Continue duloxetine 40mg daily INCREASE amitryptiline to 1 full tablet daily Continue to build in movement; daily walking [...] esophagus 04/21/2016 04/02/2022 Menopausal flushing 02/28/2016 04/02/20 22 Lumbar back pain 2016 04/02/2022 Neck pain 2016 04/02/2022 Encounters Date Type Department Care Team Description 11/17/2024 Refill [facility] [address] [place] [address] Tierney Goncalves FNP 10/23/2024 Orders Only [facility] External Provider, [facility] 10/16/2024 Orders Only GENERIC EXTERNAL DATA DEPARTMENT Provider, Generic External Data 10/13/2024 Telephone [facility] [address] [place] [address] [place] FNP Nurse Triage from Last 3 Months Immunizations Immunization Administration Dates Next Due Influenza injectable quadriv alent IIV4 with preservative 2016 Influenza injectable quadriv alent preservative free 02/21/2023,02/18/2021,02/20/2020,2018,02/24/2018 Influenza, seasonal, injecta ble, preservative free 01/14/2024,03/31/2022 Moderna Covid-19 Vaccine 12+ 09/15/2020,08/19/19 Moderna Covid-19 Vaccine 6+ Bivalent 09/06/2022 Pfizer Covid-19 Vaccine 12+ 02/21/2023 Pneumococcal Conjugate PCV 20 09/24/2024 Tdap 09/24/2024,10/12/2014 Zoster, Recombinant 07/26/2021,05/20/2021 Social History Tobacco Use Types Packs/Day Years Used Date Smoking Tobacco: Former Cigarettes Q uit: 2002 Passive Smoke Exposure: Never Smokeless Tobacco: Former Tobacco Cessation:Counseling Given: Not Answered Alcohol Use Standard Drinks/Week Comments Never 0 (1 standard drink = 0.6 oz pur e alcohol) Depression Answer Date Recorded Patient Health Questionnaire-9 Score 4 09/24/2024 Patient Health Questionnaire-9 Score 4 09/24/2024 Last PHQ-9: Questionnaire Data Not on file 0 09/24/2024 Housing Stability Answer Date Recorded What is your housing situation today? I have dale hernandez 09/12/[address] you li ve. Do you have problems with any of the following? None of the above 09/12/2024 Food Insecurity Answer Date Recorded Within the past 12 months, y ou worried that your food would run out before you got money to buy more: Never True 09/12/2024 Within the past 12 months,th e food you bought just didn't last and you didn't have enough money to get more: Never True Transportation Answer Date Recorded In the past 12 months, has l ack of transportation kept you from medical appts, meetings, work or from getting things needed for daily living? No 09/12/2024 Utilities Answer Date Recorded In the past 12 months, has t he electric, gas, oil or water company threatened to shut off services in your home? No 09/12/2024 Depression Answer Date Recorded Patient Health Questionnaire-2 Score 1 09/24/2024 Internet Access Answer Date Recorded Internet Access Q1 Yes 09/12/2024 Internet Access Q2 Not on file 09/12/2024 Comments Unknown Sex and Gender Information Value Date Recorded Sex Assigned at Female 02/27/2022 10:15 AM EDT Legal Sex Female 10:15 AM EDT Gender Identity Female 02/27/2022 10:15 AM EDT Sexual Orientation Straight 02/27/2022 10 :15 AM EDT Last Filed Vital Signs Vital Sign Reading Time Taken Comments Blood Pressure 112/66 10/06/2024 1:55 PM EDT Pulse 59 10/06/2024 1:55 PM EDT Temperature 37.1 C (98.7 F) 10/06/2024 1:55 PM EDT Respiratory Rate 16 10/06/2024 1:55 PM EDT Oxygen Saturation 96% 10/06/2024 1:55 PM EDT Inhaled Oxygen Concentration - - Weight 58.6 kg (129 lb 3.2 oz) 10/06/2024 1:55 P M EDT Height 160 cm (5' 3 ) 10/06/2024 1:55 PM EDT Body Mass Index 22.89 10/06/2024 1:55 PM EDT Plan of Treatment Health Maintenance Due Date Last Done Comments CT Colonography 1960 FIT DNA/Cologuard 1960 FIT 1960 FOBT 1960 Sigmoidoscopy 1960 Hepatitis A Vaccines (1 of 2 - Risk 2-dose series) 1981 Dental X-Ray: Bitewings 05/07/2016 05/06/19 16, 11/02/2014, 08/07/2013 RSV Patients and Patients Aged 60 years or older (1 - Risk 60-74 years 1-dose series) 2022 Dental Oral Exam 07/06/2023 01/04/2023, 03/2021, 05/06/2015, Additional history exists Dental Prophylaxis 08/24/2023 02/21/2023, 0 11/15/2015, 05/06/2015, Additional history exists Colonoscopy 11/06/2023 03/06/2023, 06/28, 07/11/2016 Colorectal Cancer Screening 11/06/2023 Cervical Cancer Screening 12/16/2024 HPV/Cotest 12/16/2024 11/05/2023, 08/28/2022 Pap Smear 12/16/2024 11/05/2023, 05/0 04/2022, 07/04/2021 COVID-19 Vaccine ( season) 2024 02/21/2023, 09/06/2022, 09/15/2020, Additional history exists Influenza Vaccine (#1) 2024 , 02/21/2023, 03/31/2022, Additional history exists Mammogram 03/17/2025 03/17/2024, 02/28, 03/16/2023, Additional history exists Disability Screening 08/06/2025 08/06/2024 SDOH Screening 09/12/2025 09/12/2024 Alcohol/Substance Use Screening 09/24/2025 09/24/2024 Depression Screening 09/24/2025 09/24/2024, 09/25/19 Tobacco Screening 10/06/2025 10/06/2024 Dental X-Ray: Full Mouth 01/05/2026 023, 07/09/2020, 08/07/2013 DTaP/Tdap/Td Vaccines (3 - Td or Tdap) 09/24/2034 09/24/2024, 10/12/2014 Zoster Vaccines Completed 07/26/2021, 05/20/2021 Colposcopy Discontinued 12/17/2023, 10/06/2022 Hepatitis C Screening Discontinued 08/04/2024 Pneumococcal Vaccine: 50+ Years Completed 09/24/2024 HIB Vaccines Aged Out No longer eligi [...] Procedure Name Priority Date/Time Associated Diagnosis Comments US THYROID Routine 10/23/2024 2:41 PM EDT TSH Routine 10/16/2024 9:08 AM EDT T4, FREE Routine 10/16/2024 9:08 AM EDT HEPATITIS PANEL, GENERAL Routine 08/04/2024 7:29 AM EDT BI MAMMOGRAM SCREENING TOMOSYNTHESIS BILATERAL Routine 03/17/2024 [...] Recently Relevant to Health Maintenance Results * US Thyroid (10/23/2024 2:41 PM EDT) Anatomical Region Laterality Modality Head, Neck Ultrasound 10/23/2024 2:41 PM EDT Narrative 10/24/2024 7:31 AM EDT [address] [address] Ultrasound Report Signed Patient: Adela Flynn MR#: [id number] : 1960 Acct:[id number] Age/Sex: 64 / F ADM Date: 10/23/24 Loc: HO.US Attending Dr: Desi Mccarthy MD Ordering Physician: Desi Mccarthy MD Date of Service: 10/23/24 Procedure(s): US thyroid Accession Number(s): [id number] cc: Desi Mccarthy MD; [facility] EXAMINATION: US THYROID HISTORY: E04.2 - Nontoxic multinodular goiter TECHNIQUE: Real-time grayscale ultrasound imaging was performed and images were reviewed. COMPARISON: Comparison is made with the prior examination dated 08/23/2021. FINDINGS: SIZE: The right thyroid lobe measures 5.2 x 1.7 x 1.8 cm. The left thyroid lobe measures 5.6 x 2.3 x 2.3 cm. The isthmus measures 3 mm. FLOW: Flow to the gland is increased. ECHOGENICITY: The echotexture of the gland is heterogeneous. NODULES: Multiple bilateral nodules are identified as described below: Nodule #: 1 Location: Upper pole of the right thyroid lobe measuring 9 x 8 x 9 mm (previously 10 x 8 x 9 mm). Shape: Wider than tall (0 points) Margins: Smooth (0 points) Echotexture: Isoechoic (1 point) Composition: Solid (2 points) Calcifications: None (0 points) Total points: 3 TIRADS: TR3: Mildly suspicious. Nodule #: 2 Location: Upper pole of the right thyroid lobe measuring 8 x 6 x 7 mm (previously 9 x 7 x 8 mm). Shape: Wider than tall (0 points) Margins: Smooth (0 points) Echotexture: Indeterminate (1 point) Composition: Mostly solid (2 points) Calcifications: None (0 points) Total points: 3 TIRADS: TR3: Mildly suspicious. Nodule #: 3 Location: Midportion of the right thyroid lobe measuring 12 x 7 x 11 mm (previously 12 x 7 x 10 mm). Shape: Wider than tall (0 points) Margins: Smooth (0 points) Echotexture: Isoechoic (1 point) Composition: Solid (2 points) Calcifications: None (0 points) Total points: 3 TIRADS: TR3: Mildly suspicious. Nodule #: 4 Location: Mid to lower pole of the left thyroid lobe measuring 2.5 x 2.0 x 2.1 cm (previously 2.2 x 1.8 x 1.9 cm). Shape: Wider than tall (0 points) Margins: Smooth (0 points) Echotexture: Isoechoic (1 point) Composition: Mostly solid (2 points) Calcifications: None (0 points) Total points: 3 TIRADS: TR3: Mildly suspicious. Nodule #: 5 Location: Midportion of the left thyroid lobe measuring 5 x 5 x 6 mm (previously 6 x 5 x 6 mm). Shape: Wider than tall (0 points) Margins: Smooth (0 points) Echotexture: Indeterminate (1 point) Composition: Mostly solid (2 points) Calcifications: None (0 points) Total points: 3 TIRADS: TR3: Mildly suspicious. US/US thyroid IMPRESSION: Stable multinodular thyroid gland as described. Continued follow-up is recommended. ACR TI-RADS Guidelines TR1 (0 points): Benign, No follow-up or biopsy required TR2 (2 points): Not Suspicious, No biopsy or follow up indicated TR3 (3 points): Mildly Suspicious, FNA if >= 2.5 cm, Follow if >= 1.5 cm TR4 (4-6 points): Moderately Suspicious, FNA if >= 1.5 cm, Follow if >= 1.0 cm TR5 (>=7 points): Highly Suspicious, FNA if >= 1.0 cm, Follow if >= 0.5 cm Electronically signed by: Gasper Montez MD 10/24/2024 07:28 AM EDT Dictated By: Gasper Montez MD Signed By: <Electronically signed by Gasper Montez MD in OV> 10/24/24 0728 DD/ 1441 TD/TT: 10/23/24 1451 Veterans Service Officer: Procedure Note Donotuseinterpreter, Image - 10/24/[address] [place] [address] Ultrasound Report Signed Patient: Adela Flynn YMR#: [id number] : 1960cct:[id number] Age/Sex: 64 / FADM Date: 10/23/24 Loc: HO.US Attending Dr: Desi Mccarthy MD Ordering Physician: Desi Mccarthy MD Date of Service: 10/23/24 Procedure(s): US thyroid Accession Number(s): [id number] cc: Desi Mccarthy MD; [facility] EXAMINATION: US THYROID HISTORY: E04.2 - Nontoxic multinodular goiter TECHNIQUE: Real-time grayscale ultrasound imaging was performed and images were reviewed. COMPARISON: Comparison is made with the prior examination dated 08/23/2021. FINDINGS: SIZE: The right thyroid lobe measures 5.2 x 1.7 x 1.8 cm. The left thyroid lobe measures 5.6 x 2.3 x 2.3 cm. The isthmus measures 3 mm. FLOW: Flow to the gland is increased. ECHOGENICITY: The echotexture of the gland is heterogeneous. NODULES: Multiple bilateral nodules are identified as described below: Nodule #: 1 Location: Upper pole of the right thyroid lobe measuring 9 x 8 x 9 mm (previously 10 x 8 x 9 mm). Shape: Wider than tall (0 points) Margins: Smooth (0 points) Echotexture: Isoechoic (1 point) Composition: Solid (2 points) Calcifications: None (0 points) Total points: 3 TIRADS: TR3: Mildly suspicious. Nodule #: 2 Location: Upper pole of the right thyroid lobe measuring 8 x 6 x 7 mm (previously 9 x 7 x 8 mm). Shape: Wider than tall (0 points) Margins: Smooth (0 points) Echotexture: Indeterminate (1 point) Composition: Mostly solid (2 points) Calcifications: None (0 points) Total points: 3 TIRADS: TR3: Mildly suspicious. Nodule #: 3 Location: Midportion of the right thyroid lobe measuring 12 x 7 x 11 mm (previously 12 x 7 x 10 mm). Shape: Wider than tall (0 points) Margins: Smooth (0 points) Echotexture: Isoechoic (1 point) Composition: Solid (2 points) Calcifications: None (0 points) Total points: 3 TIRADS: TR3: Mildly suspicious. Nodule #: 4 Location: Mid to lower pole of the left thyroid lobe measuring 2.5 x 2.0 x 2.1 cm (previously 2.2 x 1.8 x 1.9 cm). Shape: Wider than tall (0 points) Margins: Smooth (0 points) Echotexture: Isoechoic (1 point) Composition: Mostly solid (2 points) Calcifications: None (0 points) Total points: 3 TIRADS: TR3: Mildly suspicious. Nodule #: 5 Location: Midportion of the left thyroid lobe measuring 5 x 5 x 6 mm (previously 6 x 5 x 6 mm). Shape: Wider than tall (0 points) Margins: Smooth (0 points) Echotexture: Indeterminate (1 point) Composition: Mostly solid (2 points) Calcifications: None (0 points) Total points: 3 TIRADS: TR3: Mildly suspicious. US/US thyroid IMPRESSION: Stable multinodular thyroid gland as described. Continued follow-up is recommended. ACR TI-RADS Guidelines TR1 (0 points): Benign, No follow-up or biopsy required TR2 (2 points): Not Suspicious, No biopsy or follow up indicated TR3 (3 points): Mildly Suspicious, FNA if >= 2.5 cm, Follow if >= 1.5 cm TR4 (4-6 points): Moderately Suspicious, FNA if >= 1.5 cm, Follow if >= 1.0 cm TR5 (>=7 points): Highly Suspicious, FNA if >= 1.0 cm, Follow if >= 0.5 cm Electronically signed by: Gasper Montez MD 10/24/2024 07:28 AM EDT Dictated By: Gasper Montez MD Signed By: <Electronically signed by Gasper Montez MD in OV> 10/24/24 0728 DD/ 1441 TD/TT: 10/23/24 1451 Veterans Service Officer: [facility] External Provider IMG US PROCEDURES Final Result * TSH (10/16/2024 9:08 AM EDT) Thyroid Stimulating Hormone 1.29 0.32 - 4.0 uIU/mL [facility] Comment:TSH 3rd Generation ( [facility]) 10/16/2024 9:08 AM EDT 10/16/2024 9:10 AM EDT Generic External Data Provider LAB BLOOD ORDERAB LES Final Result Performing Organization Address City/[facility]/ZIP Co de Phone Number [facility] [address] [place] [phone] * T4, Free (10/16/2024 9:08 AM EDT) Pathologist [facility] [place] Free T4 (Free Thyroxine) 0.85 0.71 - 1.85 ng/dL [facility] 10/16/2024 9:08 AM EDT 10/16/2024 9:10 AM EDT Generic External Data Provider LAB BLOOD ORDERAB LES Final Result Performing Organization Address [facility] de Phone Number [facility] [address] [place] [phone] * Hepatitis Panel, General (08/04/2024 7:29 AM EDT) Pathologist [facility] [place] Hepatitis A IgM Nonreactive Nonreactive [facility] Comment:IgM antibodies to SERRANO V not detected; does not exclude earlyacute or recovered HAV infection. ~Hepatitis B Surface Antibody REACTIVE Nonreactive [facility] Comment:REACTIVE: > 11.99 mI U/mL Hepatitis B Core Antibody Nonreactive Nonreactive [facility] Hepatitis C Antibody Nonreactive Nonreactive [facility] Comment:Antibodies to HCV no t detected; does not exclude early acuteHCV infection. Hepatitis B Surface Ag Negative Negative [facility] 08/04/2024 7:29 AM EDT 08/04/2024 7:34 AM EDT us Generic External Data Provider LAB BLOOD ORDERAB LES Final Result [facility] [address] [place] [phone] * BI Mammogram Screening Tomosynthesis Bilateral (03/17/2024 2:15 PM EST) Anatomical Region Laterality Modality Breast Bilateral Mammography 03/17/2024 2:15 PM EST Narrative 03/25/2024 3:23 PM EST [facility] [address] [place] [address] Mammography Report Signed Patient: dAela Flynn MR#: [id number] : 1960 Acct:[id number] Age/Sex: 64 / F ADM Date: 03/17/24 Loc: HO.MAMMO Attending Dr: Tierney Goncalves IC DESIGN MANAGER Ordering Physician: Tierney Goncalves IC DESIGN MANAGER Results: 2Beni gn Findings Date of Service: 03/17/24 Follow Up: 1 Year From Orig ina Mammogram Procedure(s): MM tomosynthesis screening BI Accession Number(s): [id number] cc: Tierney Goncalves IC DESIGN MANAGER EXAMINATION: MM SCREENING DIGITAL BREAST TOMOSYNTHESIS, [...] 03/25/24 1520 DD/ 1415 TD/TT: 03/17/24 1430 Veterans Service Officer: Procedure Note Kieranter, Image - 03/25/2024 [facility] [address] [place], [place] [address] Mammography Report Signed Patient: Adela Flynn YMR#: [id number] : 2Acct:[id number] Age/Sex: 64 / FADM Date: 03/17/24 Loc: HO.MAMMO Attending Dr: Tierney Goncalves IC DESIGN MANAGER Ordering Physician: Tierney Goncalves FNPResults: 2Beni gn Findings Date of Service: 03/17/24Follow Up: 1 Year From Orig ina Mammogram Procedure(s): MM tomosynthesis screening BI Accession Number(s): [id number] cc: Tierney Goncalves IC DESIGN MANAGER EXAMINATION: MM SCREENING DIGITAL BREAST TOMOSYNTHESIS, [...] 03/25/24 1520 DD/ 1415 TD/TT: 03/17/24 1430 Veterans Service Officer: [facility] IC DESIGN MANAGER IMG BI PROCEDURES Final Resul t [...] Most Recently Relevant to Health Maintenance Insurance , [address] [place] [address] DENTAL - HSN PARTIAL (MEDICAID) Care Teams Social Service Director Relationship Specialty Start Date End Date Tierney Goncalves FNP [address] [place] [phone] PCP - General Family Medicine 12/27/21
== END 2025-01-12 08:30 | disposition home or self-care (01) ==
LOC: HO.HOSX 08:29
DX: Z13.89 Encounter for screening for other disorder (principal)

== ENCOUNTER 2025-01-19 13:51 | Outpatient (AMB) | payer OTHER, SELFPAY ==
--- NOTE | 2025-01-19 13:59 | MHC.OFFVIS ---
Vital Signs 01/19/25 14:13 Height 5 ft 3 in Weight 126 lb BMI 22.3 Intake Visit Reasons: Inj-Lt De Quearvain inj Intake Note: Adela is a 64 year old left hand dominant female who presents today for a Left De Quervain Injection status post left carpel tunnel release, DOS: 11/24/[address] Soni. Patient reports today she continues wearing her Comfort Cool brace, however, she does not think it is helping her much. She states she is having trouble doing things like brushing her hair. She is interested in a new Comfort Cool brace today. Allergies No Known Allergies (No Known Allergies*) Allergy (Verified 01/26/25 15:49) HPI HPI Inj-Lt De Quearvain inj: Details: Adela is a 64 year old left hand dominant female who presents today for a Left De Quervain Injection status post left carpel tunnel release, DOS: 11/24/[address] Soni. Patient reports today she continues wearing her Comfort Cool brace, however, she does not think it is helping her much. She states she is having trouble doing things like brushing her hair. She is interested in a new Comfort Cool brace today. [facility] Medical History (Updated 01/26/25 @ 15:57 by Flaco Chatterjee MD) Cervical high risk HPV (human papillomavirus) test positive Fibromyalgia Elevated cholesterol Weight loss Karina's disease Non-toxic multinodular goiter Osteoarthritis of left hip Schatzki's ring Hiatal hernia Hx of migraines History of multinodular goiter IBS (irritable bowel syndrome) GERD (gastroesophageal reflux disease) Dysphagia Chronic pain syndrome Spondylosis, lumbar, with myelopathy Sacroiliitis Surgical History (Updated 01/22/25 @ 10:17 by TEVIN Elias) History of carpal tunnel release History of bilateral tubal ligation Hx of dilation and curettage Hx of arthroscopy of right knee History of esophagogastroduodenoscopy (EGD) Hx of colonoscopy History of cholecystectomy Family History Father Unknown family medical history Mother Arthritis Diverticulitis Gastritis Breast cancer Chronic asthma Adenomatous colon polyp HTN (hypertension) Maternal Grandmother Colon cancer Daughter Hypothyroid Daughter Traveling blood clot in leg Obesity Prediabetes Social History Household Members: Spouse Housing: House Are you a primary care management coordinator to a significant other at home: No Do you presently have visiting nurse or other home services: No Alcohol intake: never Patient Tobacco Use Status: Former Tobacco user Tobacco use type: Cigarette Years Smoked: 20 service: No Current occupational status: employed 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 Neuro: Normal sensation of the tips of all digits of the bilateral hand at this time Vascular: Cap refill brisk Pain: Very mild tenderness to palpation about the 1st dorsal compartment on the left side The positive Taurus in the left No tenderness to palpation about the incision site on the volar left wrist ROM: Patient is able to make a closed fist and extend all digits of both hands fully Range of motion of bilateral wrists full and intact, but slightly painful Skin: No lacerations or abrasions. General: No ecchymosis, erythema, or evidence of infection. Psych: Appears grossly normal Affect normal Attitude cooperative Office Procedures AMB Tendon Injection Tendon Injection [id number] Tendon Sheath Injection All charges added?: Procedure code (CPT) selection complete Assessment & Plan Assessment & Plan (1) De Quervain's tenosynovitis, left: Code(s): M65.4 - Radial styloid tenosynovitis [de Quervain] Category: Medical (2) Bilateral carpal tunnel syndrome: Code(s): G56.03 - Carpal tunnel syndrome, bilateral upper limbs Category: Medical Plan 2. Right carpal tunnel syndrome Intermittent, daily, worse at night Patient would like to hold off on operative intervention for the right side at this time, as she needs to care for her mother and can not have her right hand incapacitated so soon after the left Patient is educated on the potential risks of prolonging treatment for carpal tunnel syndrome Patient understands these risks 3. De Quervain tenosynovitis, left Injection #2: The risks and benefits of a steroid injection including but not limited to risk of damage to blood vessels, nerves, tendons, infection, skin bleaching, failure to improve symptoms, increased pain, and possible need for further injections or other intervention were discussed with the patient and the patient wishes to proceed with the steroid injection. Once consent was obtained, I sterilely prepped the area over the 1st dorsal compartment of the LT thumb. I then injected the 1st dorsal compartment with a combination of 1 mL of dexamethasone (4mg/ml), and 1% lidocaine. The patient tolerated the procedure well with no complications and good resolution of their symptoms prior to leaving clinic. If the patient continues to have pain 6-8 weeks following this injection, they may call to schedule appointment to discuss alternative treatment options Coding Level of Care Code Est Pt Level 3 (23458) Diagnoses De Quervain's tenosynovitis, left M65.4 Bilateral carpal tunnel syndrome G56.03 CPT Codes Tendon Injection - Tendon Injection 1: [id number] Tendon Sheath Injection ([id number])
[2025-01-19 14:13] VITALS: BMI 22.3
--- OUTSIDE RECORDS SUMMARY | 2025-01-19 16:22 | XMS_ITS | Clinical Summary ---
Author Organization [employer] Address [address] [facility] 7t [place] [address] Care Team Providers Care Pig Machine Supervisor Name Role Phone Tierney Goncalves INTAKE COORDINATOR Primary Care Provider [phone] Allergies No known active allergies Medications * [...] Overview (12/12/2022): Negative EMB 09/01/22 Followed by [facility] SENIOR TECHNICAL SUPPORT ENGINEER Mixed hyperlipidemia 05/26/2022 Overview (05/26/2022): 03/2022 ASCVD 2.8% Diet controlled Healthcare maintenance 04/02/2022 Overview (08/15/2023): Mammo: 02/2023 bi-rads 2 Pap: 05/2021 though [facility] SENIOR TECHNICAL SUPPORT ENGINEER, NIL HPV +'colpo PADMINI 1, repeat co-testing due 09/2023 C-scope: 2017, has upcoming appointment BMD: Routine age 67 HCV Screen: Neg 2016 HIV Screen: Neg 2015 Immunizations: declines COVID booster today. Otherwise UTD Screening Labs: A1c-4.8, 2020 Assessment & Plan (04/02/2022 1:22 PM EST): Mammo: 02/2022 bi-rads 2, repeat 02/2023 Pap: 05/2021 though [facility] SENIOR TECHNICAL SUPPORT ENGINEER, NIL HPV +, pt does not [...] dysphagia and early satiety - Followed by [facility] GI with previously benign EGD w/ esophageal spasm, negative gastric emptying study, neg. H.pylori biopsy Osteoarthritis of facet joint of lumbar spine Overview (05/18/2022): - Hx of sacroilitis - Previously seen by [facility] ortho and pain mngmt; has received numerous steroid injections with minimal sx improvement. Has tried PT for various concerns without improvement. - Is not currently followed by ortho or pain mngmt Non-toxic multinodular goiter 07/20/2017 Overview (05/18/2022): Benign multi-nodular goiter followed by [facility] endo. Per lats visit note 08/2021, patient to reconsider thyroidectomy if sx of dysphagia worsen; has follow up in 6 months - Per chart review pt was referred to [place] for possible thyroidectomy however pt does not have transportation. Insurance barriers limit more local access. -FNA of left mid pole nodule on 04/20/16 consistent with benign follicular nodule. 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 Per visit note plan to monitor q. 6 months and consider biopsy if WBC count < 2 or development of B sx Diffuse spasm of esophagus 05/17/2016 Fibromyalgia 04/28/2016 Overview (01/02/2023): Duloxetine 40mg daily Amitriptyline 10mg at bedtime Chronic back pain, shoulder pain Hx of sacroilitis Previously seen by [facility] ortho and pain mngmt; has received numerous [...] Encounters Date Type Department Care Team Description 01/12/2025 Refill [facility] MED[facility] [address] [place] [address] [facility] Migraine without aura, not refractory 11/17/2024 Refill [facility] [address] [place] [address] IvannaTierney wright FNP 10/23/2024 Orders Only [facility] External Provider, [facility] from Last 3 Months Immunizations Immunization Administration [...] US THYROID Routine 10/23/2024 2:41 PM EDT HEPATITIS PANEL, GENERAL Routine 08/04/2024 7:29 AM EDT BI MAMMOGRAM SCREENING TOMOSYNTHESIS BILATERAL Routine 03/17/2024 2:15 PM EST COLPOSCOPY Routine 12/17/2023 10:24 AM EDT HM PAP/HPV Routine 11/05/2023 COLONOSCOPY Routine 03/06/2023 8:12 AM EST PROPHYLAXIS [...] PM EDT Narrative 10/24/2024 7:31 AM EDT [address] [address] Ultrasound Report Signed Patient: Adela Flynn MR#: [id number] : 1960 Acct:[id number] Age/Sex: 64 / F ADM Date: 10/23/24 Loc: HO.US Attending Dr: Desi Mccarthy MD Ordering Physician: Desi Mccarthy MD Date of Service: 10/23/24 Procedure(s): US thyroid Accession Number(s): [id number] cc: Desi Mccarthy MD; [facility] EXAMINATION: US THYROID HISTORY: E04.2 - Nontoxic [...] 10/24/24 0728 DD/ 1441 TD/TT: 10/23/24 1451 Elevator Examiner And Adjuster: Procedure Note Donotuseinterpreter, Image - 10/24/[address] [address] Ultrasound Report Signed Patient: Adela Flynn YMR#: [id number] : 2Acct:[id number] Age/Sex: 64 / FADM Date: 10/23/24 Loc: HO.US Attending Dr: Desi Mccarthy MD Ordering Physician: Desi Mccarthy MD Date of Service: 10/23/24 Procedure(s): US thyroid Accession Number(s): [id number] cc: Desi Mccarthy MD; [facility] EXAMINATION: US THYROID HISTORY: E04.2 - Nontoxic [...] Smooth (0 points) Echotexture: Isoechoic (1 point) Total points: 3 [facility] MR#: [id number] : 1960 Acct:[id number] Age/Sex: 64 / F Results: 2Beni gn Findings MM/MM tomosynthesis screening BI IMPRESSION: No mammographic evidence of malignancy. ASSESSMENT: BI-RADS BI-RADS 2 - Benign Findings RECOMMENDATION: Routine annual mammography screening. 1 year F/U DD/ [address] [place] [address] Care Teams Pig Machine Supervisor Relationship Specialty Start Date End Date Tierney Goncalves FNP [address] [place] [phone] PCP - General Family Medicine 12/27/21
--- OUTSIDE RECORDS SUMMARY | 2025-01-19 16:22 | XMS_ITS ---
Author Organization [employer] Address [address] [facility] 7 [place] [address] Care Team Providers Care Clinic Office Coordinator Name Role Phone Tierney Goncalves [facility] Primary Care Provider [phone] Reason for Visit * Reason Comments Med Refill Encounter Details Date Type Department Care Team (Late st Contact Info) Description 03/13/2023 Refill [facility]INE [address] [place], [place] [phone] [facility] [address] [place] [address] Social History Tobacco Use Types Packs/Day Years [...] documented as of this encounter Care Teams Clinic Office Coordinator Relationship Specialty Start Date End Date Tierney Goncalves FNP [address] [place] [address] PCP - General Family Medicine 12/27/21 documented as of this encounter
--- OUTSIDE RECORDS SUMMARY | 2025-01-19 16:22 | XMS_ITS | Encounter Summary ---
Author Organization [employer] Address [address] [facility] [place] [address] Support
--- OUTSIDE RECORDS SUMMARY | 2025-01-19 16:22 | XMS_ITS | Encounter Summary ---
Author
== END 2025-01-19 14:53 | disposition home or self-care (01) ==
LOC: HO.HOS 13:52
PROVIDERS: PCP Registered Nurse
DX: M65.4 Radial styloid tenosynovitis [de Quervain] (principal); G56.03 Carpal tunnel syndrome, bilateral upper limbs
CPT/HCPCS: 20550; 99213

== ENCOUNTER → 2025-01-19 13:51 | Outpatient (BNVA) | payer OTHER, SELFPAY | PROVIDERS: PCP Registered Nurse | DX: G56.03 Carpal tunnel syndrome, bilateral upper limbs (principal) | CPT/HCPCS: 20550; J1100; J2003 ==

== ENCOUNTER 2025-01-23 14:01 | Outpatient (REF) | payer OTHER, SELFPAY ==
--- NOTE | ~2025-01-23 | US_ITS ---
EXAMINATION: US PELVIS CLINICAL INFORMATION: D21.9 - Benign neoplasm of connective and other soft tissue, unspecified, follow-up COMPARISON: November 12, 2023 TECHNIQUE: Ultrasound of the pelvis is performed using both transabdominal and transvaginal transducers along with Doppler. Transvaginal imaging is performed due to inadequate visualization transabdominally. FINDINGS: Uterus: The uterus is anteverted and measures 4 x 3.9 x 4.2 cm. The double wall endometrial thickness is 4 mm. Trace fluid is present in the endometrial canal. Multiple uterine leiomyomas are measured. Right upper body: 10 x 10 x 13 mm, previously 15 x 13 x 15 mm. Right upper body/isthmus: 10 11 x 9 mm previously 8 x 12 x 10 mm. Posterior mid body at the margin of the submucosal layer: 13 x 15 x 12 mm previously 12 x 11 x 13 mm Left isthmus: 25 x 21 x 21 mm previously 24 x 23 x 25 mm. Adnexa: Ovaries were not visualized. US/US pelvic and transvaginal IMPRESSION: Uterine leiomyomas appear similar in size to the prior. Electronically signed by: Irving Wheeler MD 01/23/2025 02:52 PM EDT
--- OUTSIDE RECORDS SUMMARY | 2025-01-23 15:07 | XMS_ITS | Encounter Summary ---
Author Organization [employer] Address [address] [facility] [address] [place] [address] Care Team Providers Care Supervisor Cell Room Name Role Phone [facility] Primary Care Provider [phone] Reason for Visit * Reason Comments Med Refill Encounter Details Date Type Department Care Team ([facility] st Contact Info) Description 07/21/2022 Refill [facility] MEDICINE [address] [place] [address] [facility] [address] [place] [address] Joint pain in both hands Social History [...] as of this encounter Care Teams Supervisor Cell Room Relationship Specialty Start Date End Date Tierney Goncalves FNP [address] [place] [id number] PCP - General Family Medicine 12/27/21 documented as of this encounter
--- OUTSIDE RECORDS SUMMARY | 2025-01-23 15:07 | XMS_ITS | Encounter Summary ---
Author Organization [employer] Address [address] [facility] 7t [place] [address] Care Team Providers Care Product Safety Coordinator Name Role Phone Tierney Goncalves PARTNERSHIP MARKETING MANAGER Primary Care Provider [phone] Reason for Visit * Reason Onset Date Comments case clarification 07/31/2023 Encounter Details Date Type Department Care Team ([facility] st Contact Info) Description 07/31/2023 Telephone [facility] ADULT DENTAL [address] [place] [address] Camron Rios DDS [address] [place], [place] [phone] case clarification Social History Tobacco Use Types [...] documented as of this encounter Care Teams Product Safety Coordinator Relationship Specialty Start Date End Date Tierney Goncalves FNP [address] [place] [address] PCP - General Family Medicine 12/27/21 documented as of this encounter
--- OUTSIDE RECORDS SUMMARY | 2025-01-23 15:07 | XMS_ITS | Encounter Summary ---
Author Organization [employer] Address [address] [facility] [address] 7t [place] [address] Care Team Providers Care Senior Validation Engineer Name Role Phone Tierney Goncalves LACEWORKER Primary Care Provider [phone] Encounter Details Date Type Department Care Team ([facility] st Contact Info) Description 09/07/2023 Telephone C ADULT DENTAL [address] [place], [place] [phone] Camron Rios DDS [address] [place], [place] [phone] Social History Tobacco Use Types Packs/Day Years [...] EDT Patient calling to make apt to hop picker parcles documented in this encounter Plan of Treatment Not on file documented as of this encounter Visit Diagnoses Not on filedocumented in this encounter Additional Health Concerns Assessment Noted Time PHQ-9 Depression Total Score: 0 05/16/19 24 3:22 PM EST documented as of this encounter Care Teams Senior Validation Engineer Relationship Specialty Start Date End Date Tierney Goncalves FNP [address] [place] [id number] PCP - General Family Medicine 12/27/21 documented as of this encounter
--- OUTSIDE RECORDS SUMMARY | 2025-01-23 15:07 | XMS_ITS | Encounter Summary ---
Author Organization [employer] Address [address] [facility] 7t [place] [address] Care Team Providers Care Acoustical Tile Carpenters Supervisor Name Role Phone [facility] Primary Care Provider [phone] Reason for Visit * Reason Onset Date Comments Prior Authorization 05/16/2024 Encounter Details Date Type Department Care Team (Late st Contact Info) Description 05/16/2024 Telephone [facility] MED & PEDS [address] [place] [address] [facility] [address] [place] [address] Prior Authorization Social History Tobacco Use Types [...] documented as of this encounter Care Teams Acoustical Tile Carpenters Supervisor Relationship Specialty Start Date End Date Tierney Goncalves FNP [address] [place] [address] PCP - General Family Medicine 12/27/21 documented as of this encounter
--- OUTSIDE RECORDS SUMMARY | 2025-01-23 15:07 | XMS_ITS | Encounter Summary ---
Author Organization [employer] Address [address] [facility] [address], [place] [address] Care Team Providers Care Poultry Cutter Name Role Phone [facility] Primary Care Provider [phone] Encounter Details Date Type Department Care Team ([facility] st Contact Info) Description 05/16/2022 Telephone [facility] [address] [place], [place] [phone] [facility] [address] [place], [place] [phone] Social History Tobacco Use Types Packs/Day Years [...] on filedocumented in this encounter Care Teams Poultry Cutter Relationship Specialty Start Date End Date Tierney Goncalves FNP [address] [place] [phone] PCP - General Family Medicine 12/27/21 documented as of this encounter
--- OUTSIDE RECORDS SUMMARY | 2025-01-23 15:07 | XMS_ITS | Clinical Summary ---
Author Organization [employer] Address [address] [facility] 7t [place] [address] Care Team Providers Care Whitewasher Name Role Phone Tierney Goncalves COMMUNICATIONS TECH Primary Care Provider [phone] Allergies No known active allergies Medications * [...] AFFECTED AREA 60 g 07/22/19 23 Active amitriptyline (Elavil) 10 MG tabletIndicati ons:Fibromyalg ia TAKE 1/2 TABLET BY MOUTH AT BEDTIME 15 tablet 3 12/17/19 24 Active ibuprofen 800 MG tablet TAKE 1 TABLET BY MOUTH EVERY 8 HOURS NEEDED FOR MILD PAIN 45 tablet 1 12/17/19 24 Active lidocaine (Xylocaine) 5 % ointmentIndica tions:Fibromya lgia Apply topically Once per day. APPLY TOPICALLY TO THE AFFECTED AREA 1 -4 TIMES EVERY DAY IF NEEDED 60 g 1 07/15/19 25 Active DULoxetine (Cymbalta) [address] capsuleIndicat ions:Fibromyal mary Take 1 capsule (60 mg) by mouth Once per day. Do not crush or chew. 30 capsule 11 09/25/19 25 026 Active diphenhydrAMIN E (Banophen) 25 MG capsuleIndicat ions:Seasonal allergies TAKE 1 CAPSULE BY MOUTH AT NIGHT NEEDED 30 capsule 1 10/09/19 25 Active acetaminophen (Tylenol 8 Hour) 650 MG ER tablet TAKE 1 TABLET BY MOUTH EVERY 8 HOURS NEEDED. SWALLOW WHOLE WITH WATER. DO NOT BREAK, CRUSH, DISSOLVE AND/ OR CHEW 60 tablet 1 11/18/19 25 Active topiramate 50 MG tabletIndicati ons:Migraine without aura, not refractory TAKE 1 TABLET BY MOUTH EVERY MORNING 30 tablet 3 01/24/20 25 Active topiramate 50 MG tabletIndicati ons:Migraine without aura, not refractory TAKE 1 TABLET BY MOUTH EVERY MORNING 30 tablet 3 09/16/19 25 025 Discontinued(Re order (will not trigger notification [...] Overview (12/12/2022): Negative EMB 09/01/22 Followed by [facility] PHARMACEUTICAL SCIENTIST Mixed hyperlipidemia 05/26/2022 Overview (05/26/2022): 03/2022 ASCVD 2.8% Diet controlled Healthcare maintenance 04/02/2022 Overview (08/15/2023): Mammo: 02/2023 bi-rads 2 Pap: 05/2021 though [facility] PHARMACEUTICAL SCIENTIST, NIL HPV +'colpo PADMINI 1, repeat co-testing due 09/2023 C-scope: 2017, has upcoming appointment BMD: Routine age 67 HCV Screen: Neg 2015 HIV Screen: Neg 2016 Immunizations: declines COVID booster today. Otherwise UTD Screening Labs: A1c-4.8, 2020 Assessment & Plan (04/02/2022 1:22 PM EST): Mammo: 02/2022 bi-rads 2, repeat 02/2023 Pap: 05/2021 though [facility] PHARMACEUTICAL SCIENTIST, NIL HPV +, pt does not now what follow up is scheduled with Dr. Sen Dumontscope: 2017 BMD: Routine age 67 HCV Screen: Neg 2016 HIV Screen: Neg 2016 Immunizations: Accepts flu, declines COVID booster today. Otherwise UTD Screening Labs: A1c-4.8, 2020 Lipids: Ordered today CMP: Ordered today Migraine without aura, not refractory 03/16/2022 Overview (05/26/2022): Topiramate 50mg for prevention Osteoarthritis of right knee 04/25/2019 Dysphagia 10/03/2018 Overview (05/16/2023): Hx of persistent dysphagia and early satiety - Followed by [facility] GI with previously benign EGD w/ esophageal spasm, negative gastric emptying study, neg. H.pylori biopsy Osteoarthritis of facet joint of lumbar spine Overview (05/18/2022): - Hx of sacroilitis - Previously seen by [facility] ortho and pain mngmt; has received numerous steroid injections with minimal sx improvement. Has tried PT for various concerns without improvement. - Is not currently followed by ortho or pain mngmt Non-toxic multinodular goiter 07/20/2017 Overview (05/18/2022): Benign multi-nodular goiter followed by [facility] endo. Per lats visit note 08/2021, patient to reconsider thyroidectomy if sx of dysphagia worsen; has follow up in 6 months - Per chart review pt was referred to [place] for possible thyroidectomy however pt does not have transportation. Insurance barriers limit more local access. -FNA of left mid pole nodule on 04/20/16 consistent with benign follicular nodule. 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 Per visit note plan to monitor q. 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 12/0 07/2021 Trochanteric bursitis 12/08/20162021 Schatzki's ring of distal esophagus 04/21/2016 04/02/2022 Menopausal flushing 02/28/2016 04/02/20 22 Lumbar back pain 2016 04/02/2022 Neck pain 2016 04/02/2022 Encounters Date Type Department Care Team Description 01/23/2025 Orders Only [facility] External Provider, [facility] 01/22/2025 Refill [facility] MED[facility]INE [address] [place] [address] Marshall Tierney, [facility] Migraine without aura, not refractory 01/12/2025 Refill [facility] MED[facility]INE [address] [place] [address] Marshall Gurley, [facility] Migraine without aura, not refractory 11/17/2024 Refill [facility] MEDICINE [address] [place] [address] Marshall Gurley, COMMUNICATIONS TECH 10/23/2024 Orders Only [facility] External Provider, [facility] from Last 3 Months Immunizations Immunization Administration [...] your housing situation today? I have dale sing 09/12/[address] you li [...] 09/24/2025 09/24/2024 Depression Screening 09/24/2025 09/24/2024, 09/25/19 25 Tobacco Screening 10/06/2025 10/06/2024 Dental X-Ray: Full [...] Name Priority Date/Time Associated Diagnosis Comments US PELVIS TRANSVAGINAL Routine 2:18 PM EDT US THYROID Routine 10/23/2024 2:41 PM EDT [...] Relevant to Health Maintenance Results * US Pelvis Transvaginal (01/23/2025 2:18 PM EDT) Anatomical Region Laterality Modality Pelvis Ultrasound 01/23/2025 2:18 PM EDT Narrative 01/23/2025 2:55 PM EDT [address] [address] Ultrasound Report Signed Patient: Adela Flynn MR#: [id number] : 1960 Acct:[id number] Age/Sex: 64 / F ADM Date: 01/23/25 Loc: HO.US Attending Dr: Flaco Chatterjee MD Ordering Physician: Flaco Chatterjee MD Date of Service: 01/23/25 Procedure(s): US pelvic and transvaginal Accession Number(s): [id number] cc: [facility]; Flaco Chatterjee MD Reason for Exam: D21.9 - Benign neoplasm of connective and other soft tissue, unspecified EXAMINATION: US PELVIS CLINICAL INFORMATION: D21.9 - Benign neoplasm of connective and other soft tissue, unspecified, follow-up COMPARISON: November 12, 2023 TECHNIQUE: Ultrasound of the pelvis is performed using both transabdominal and transvaginal transducers along with Doppler. Transvaginal imaging is performed due to inadequate visualization transabdominally. FINDINGS: Uterus: The uterus is anteverted and measures 4 x 3.9 x 4.2 cm. The double wall endometrial thickness is 4 mm. Trace fluid is present in the endometrial canal. Multiple uterine leiomyomas are measured. Right upper body: 10 x 10 x 13 mm, previously 15 x 13 x 15 mm. Right upper body/isthmus: 10 11 x 9 mm previously 8 x 12 x 10 mm. Posterior mid body at the margin of the submucosal layer: 13 x 15 x 12 mm previously 12 x 11 x 13 mm Left isthmus: 25 x 21 x 21 mm previously 24 x 23 x 25 mm. Adnexa: Ovaries were not visualized. US/US pelvic and transvaginal IMPRESSION: Uterine leiomyomas appear similar in size to the prior. Electronically signed by: Irving Wheeler MD 01/23/2025 02:52 PM EDT Dictated By: Irving Wheeler MD Signed By: <Electronically signed by Irving Wheeler MD in OV> 01/23/25 1452 DD/ 1418 TD/TT: 01/23/25 1430 Crew Clerk: Procedure Note Donotuseinterpreter, Image - 01/23/2025 [place] [address] Ultrasound Report Signed Patient: Adela Flynn YMR#: [id number] : 1960cct:[id number] Age/Sex: 64 / FADM Date: 01/23/25 Loc: .US Attending Dr: Flaco Chatterjee MD Ordering Physician: Flaco Chatterjee MD Date of Service: 01/23/25 Procedure(s): US pelvic and transvaginal Accession Number(s): [id number] cc: MarshallTierney [facility]; Flaco Chatterjee MD Reason for Exam: D21.9 - Benign neoplasm of connective and other softtissue, unspecified EXAMINATION: US PELVIS CLINICAL INFORMATION: D21.9 - Benign neoplasm of connective and other soft tissue, unspecified, follow-up COMPARISON: November 12, 2023 TECHNIQUE: Ultrasound of the pelvis is performed using both transabdominal and transvaginal transducers along with Doppler. Transvaginal imaging is performed due to inadequate visualization transabdominally. FINDINGS: Uterus: The uterus is anteverted and measures 4 x 3.9 x 4.2 cm. The double wall endometrial thickness is 4 mm. Trace fluid is present in the endometrial canal. Multiple uterine leiomyomas are measured. Right upper body: 10 x 10 x 13 mm, previously 15 x 13 x 15 mm. Right upper body/isthmus: 10 11 x 9 mm previously 8 x 12 x 10 mm. Posterior mid body at the margin of the submucosal layer: 13 x 15 x 12 mm previously 12 x 11 x 13 mm Left isthmus: 25 x 21 x 21 mm previously 24 x 23 x 25 mm. Adnexa: Ovaries were not visualized. US/US pelvic and transvaginal IMPRESSION: Uterine leiomyomas appear similar in size to the prior. Electronically signed by: Irving Wheeler MD 01/23/2025 02:52 PM EDT RP Dictated By: Irving Wheeler MD Signed By: <Electronically signed by Irving Wheeler MD in OV> 01/23/25 1452 DD/ 1418 TD/TT: 01/23/25 1430 Crew Clerk: us [facility] External Provider IMG US PROCEDURES Final Result * US Thyroid (10/23/2024 2:41 PM EDT) Anatomical Region Laterality Modality Head, Neck Ultrasound 10/23/2024 2:41 PM EDT Narrative 10/24/2024 7:31 AM EDT [address] [address] Ultrasound Report Signed Patient: Adela Flynn MR#: [id number] : 1960 Acct:[id number] Age/Sex: 64 / F ADM Date: 10/23/24 Loc: HO.US Attending Dr: Desi Mccarthy MD Ordering Physician: Desi Mccarthy MD Date of Service: 10/23/24 Procedure(s): US thyroid Accession Number(s): [id number] cc: Desi Mccarthy MD; [facility] EXAMINATION: US THYROID HISTORY: E04.2 - Nontoxic [...] 10/24/24 0728 DD/ 1441 TD/TT: 10/23/24 1451 Crew Clerk: Procedure Note Donotuseinterpreter, Image - 10/24/[address] [address] Ultrasound Report Signed Patient: Adela Flynn R#: [id number] : 1960cct:[id number] Age/Sex: 64 / FADM Date: 10/23/24 Loc: HO.US Attending Dr: Desi Mccarthy MD Ordering Physician: Desi Mccarthy MD Date of Service: 10/23/24 Procedure(s): US thyroid Accession Number(s): [id number] cc: Desi Mccarthy MD; [facility] EXAMINATION: US THYROID HISTORY: E04.2 - Nontoxic [...] 10/24/24 0728 DD/ 1441 TD/TT: 10/23/24 1451 Crew Clerk: [facility] External Provider IMG US PROCEDURES Final Result * Hepatitis Panel, General (08/04/2024 7:29 AM EDT) Hepatitis A IgM Nonreactive Nonreactive [facility] Comment:IgM antibodies to SERRANO V not detected; does not exclude earlyacute or recovered HAV infection. ~Hepatitis B Surface Antibody REACTIVE Nonreactive [facility] Comment:REACTIVE: > 11.99 mI U/mL Hepatitis B Core Antibody Nonreactive Nonreactive [facility] Hepatitis C Antibody Nonreactive Nonreactive [facility] Comment:Antibodies to HCV no t detected; does not exclude early acuteHCV infection. Hepatitis B Surface Ag Negative Negative [facility] 08/04/2024 7:29 AM EDT 08/04/2024 7:34 AM EDT Generic External Data Provider LAB BLOOD ORDERAB LES Final Result [facility] [address] [place] [phone] * BI Mammogram Screening Tomosynthesis Bilateral (03/17/2024 2:15 PM EST) Anatomical Region Laterality Modality Breast Bilateral Mammography 03/17/2024 2:15 PM EST Narrative 03/25/2024 3:23 PM EST [address] [place] [address] Mammography Report Signed Patient: Adela Flynn MR#: [id number] : 1960 Acct:[id number] Age/Sex: 64 / F ADM Date: 03/17/24 Loc: HO.MAMMO Attending Dr: Tierney Goncalves COMMUNICATIONS TECH Ordering Physician: Tierney Goncalves COMMUNICATIONS TECH Results: 2Beni gn Findings Date of Service: 03/17/24 Follow Up: 1 Year From Orig ina Mammogram Procedure(s): MM tomosynthesis screening BI Accession Number(s): [id number] cc: Tierney Goncalves COMMUNICATIONS TECH EXAMINATION: MM SCREENING DIGITAL BREAST TOMOSYNTHESIS, BILATERAL [...] 03/25/24 1520 DD/ 1415 TD/TT: 03/17/24 1430 Crew Clerk: Procedure Note Donotuseinterpreter, Image - 03/25/[address] [place] [address] Mammography Report Signed Patient: Adela Flynn YMR#: [id number] : 2Acct:[id number] Age/Sex: 64 / FADM Date: 03/17/24 Loc: HO.MAMMO Attending Dr: Tierney Goncalves COMMUNICATIONS TECH Ordering Physician: Tierney Goncalves FNPResults: 2Beni gn Findings Date of Service: 03/17/24Follow Up: 1 Year From Orig inal Mammogram Procedure(s): MM tomosynthesis screening BI Accession Number(s): [id number] cc: Tierney Goncalves COMMUNICATIONS TECH EXAMINATION: MM SCREENING DIGITAL BREAST TOMOSYNTHESIS, BILATERAL [...] 03:20 PM [facility] Dictated By: Emma Cerda DO Signed By: <Electronically signed by Emma Cerda DO in OV> 03/25/24 1520 DD/ 1415 TD/TT: 03/17/24 1430 Crew Clerk: [facility] COMMUNICATIONS TECH IMG BI PROCEDURES Final Resul t * Colposcopy (12/17/2023 10:24 AM EDT) Historical Provider MD IN CLINIC/BEDSIDE ORDERAB LES Final Result * (ABNORMAL) HM PAP/HPV (11/05/2023) Pap Smear 1. NILM 1. NILM HPV Detected(A ) Undetected, Indeterminate , Quantitative, Not Detected us Historical Provider HEALTH MAINTENANCE Final Result * Hm Colonoscopy (03/06/2023 8:12 AM EST) us Historical Provider HEALTH MAINTENANCE Final Result from Last 3 Months or Most Recently Relevant to Health Maintenance Insurance [facility] , [address] [place] [address] DENTAL - HSN PARTIAL (MEDICAID) Care Teams Whitewasher Relationship Specialty Start Date End Date Tierney Goncalves FNP [address] [place] [address] PCP - General Family Medicine 12/27/21
--- OUTSIDE RECORDS SUMMARY | 2025-01-23 15:07 | XMS_ITS | Encounter Summary ---
Author Organization [facility] Address [address] [place] [address] Phone Care Team Providers Care Ethnology Professor Name Role Phone Pcp, Unknown Primary Care Provider Unavailabl e Tierney Goncalves Primary Care Provider [phone] Encounter Details Date Type Department Care Team (Late st Contact Info) Description 07/24/2023 Procedure Pass [facility] Endoscopy Admitting Dept Virtual Department [address] [place] [address] Social History Tobacco Use Types Packs/Day Years [...] on filedocumented in this encounter Care Teams Ethnology Professor Relationship Specialty Start Date End Date Pcp, Unknown PCP - General 04/17/23 07/30/23 Tierney Goncalves FNP [address] [place] [address] PCP - General Nurse Practitioner 07/31/23 documented as of this encounter Additional Source Comments The information contained in this document represents components of the legal health record. It is not the complete legal health record.[facility]
--- OUTSIDE RECORDS SUMMARY | 2025-01-23 15:07 | XMS_ITS | Encounter Summary ---
Author Organization [facility] Address [address] [place] [address] [place] [address] Phone Care Team Providers Care Kiln Tester Name Role Phone Tierney Goncalves Primary Care Provider [phone] Encounter Details Date Type Department Care Team (Late st Contact Info) Description 07/31/2023 Procedure Pass [facility] Endoscopy Admitting Dept Virtual Department [address] [place] [address] Social History Tobacco Use Types Packs/Day Years [...] on filedocumented in this encounter Care Teams Kiln Tester Relationship Specialty Start Date End Date Tierney Goncalves FNP [address] [place] [address] PCP - General Nurse Practitioner 07/31/23 documented as of this encounter Additional Source Comments The information contained in this document represents components of the legal health record. It is not the complete legal health record.[facility]
--- OUTSIDE RECORDS SUMMARY | 2025-01-23 15:07 | XMS_ITS | Encounter Summary ---
Author Organization [employer] Address [address] [facility] 7t [place] [address] Care Team Providers Care Rn Mds Coordinator Name Role Phone [facility] Primary Care Provider [phone] Reason for Visit * Reason Comments Med Refill Encounter Details Date Type Department Care Team ([facility] st Contact Info) Description 01/12/2025 Refill [facility] MEDICINE [address] [place] [address] [facility] [address] [place] [address] Migraine without aura, not refractory Social History [...] Assessment Noted Time PHQ-9 Depression Total Score: 4 09/25/19 25 2:57 PM EDT documented as of this encounter Care Teams Rn Mds Coordinator Relationship Specialty Start Date End Date Tierney Goncalves FNP [address] [place] [address] PCP - General Family Medicine 12/27/21 documented as of this encounter
--- OUTSIDE RECORDS SUMMARY | 2025-01-23 15:07 | XMS_ITS | Encounter Summary ---
Author Organization [employer] Address [address] [facility] 7t [place] [address] Care Team Providers Care Clinical Asst Name Role Phone [facility] Primary Care Provider [phone] Reason for Visit * Reason Comments Med Refill Encounter Details Date Type Department Care Team ([facility] st Contact Info) Description 08/19/2023 Refill [facility] MEDICINE [address] [place], [place] [phone] [facility] [address] [place] [address] Fibromyalgia Social History Tobacco Use Types Packs/Day [...] documented as of this encounter Care Teams Clinical Asst Relationship Specialty Start Date End Date Tierney Goncalves FNP [address] [place] [address] PCP - General Family Medicine 12/27/21 documented as of this encounter
--- OUTSIDE RECORDS SUMMARY | 2025-01-23 15:07 | XMS_ITS | Encounter Summary ---
Author Organization [employer] Address [address] [facility] 7t [place] [address] Care Team Providers Care Senior Financial Consultant Name Role Phone [facility] Primary Care Provider [phone] Reason for Visit * Reason Onset Date Comments Med Refill 01/22/2025 Encounter Details Date Type Department Care Team (Late st Contact Info) Description 01/22/2025 Refill [facility] MEDICINE [address] [place] [address] [facility] [address] [place] [address] Migraine without aura, not refractory Social History [...] encounter Miscellaneous Notes * Telephone Encounter - Frances Barnes LPN - 01/22/2025 8:20 AM EDT Last seen 10/06/24. * Telephone Encounter - Janie Craft - 01/22/2025 8:06 AM EDT TC from pt requesting medication refill. Medications needing refill : - topiramate 50 MG tablet To be sent to: - [id number] - [place], [place] - [address] [facility] documented in this encounter Plan of Treatment Not on file documented as of this encounter Visit Diagnoses Diagnosis Migraine without aura, not refractory documented in this encounter Additional Health Concerns Assessment Noted Time PHQ-9 Depression Total Score: 4 09/25/19 2:57 PM EDT documented as of this encounter Care Teams Senior Financial Consultant Relationship Specialty Start Date End Date Tierney Goncalves FNP [address] [place] [address] PCP - General Family Medicine 12/27/21 documented as of this encounter
--- OUTSIDE RECORDS SUMMARY | 2025-01-23 15:07 | XMS_ITS | Encounter Summary ---
Author Organization [employer] Address [address] 7[address] [place] [address] Care Team Providers Care Accounting Software Specialist Name Role Phone Tierney Goncalves PLAYERS ASSISTANT Primary Care Provider [phone] Encounter Details Date Type Department Care Team (Late st Contact Info) Description 11/13/2023 Orders Only [facility] MEDICINE [address] [place] [address] ProviderEvon MD Social History Tobacco Use Types [...] documented as of this encounter Care Teams Accounting Software Specialist Relationship Specialty Start Date End Date Tierney Goncalves FNP [address] [place] [address] PCP - General Family Medicine 12/27/21 documented as of this encounter
--- OUTSIDE RECORDS SUMMARY | 2025-01-23 15:07 | XMS_ITS | Encounter Summary ---
Author Organization [employer] Address [address] [facility] [address] 7[address] [place] [address] Care Team Providers Care University Teacher Name Role Phone Tierney Goncalves CUSTOMER SUPPORT ENGINEER Primary Care Provider [phone] Encounter Details Date Type Department Care Team (Late st Contact Info) Description 08/08/2023 Orders Only [facility] [address] [place] [address] ProviderEvon MD Social History Tobacco Use Types [...] documented as of this encounter Care Teams University Teacher Relationship Specialty Start Date End Date Tierney Goncalves FNP [address] [place] [address] PCP - General Family Medicine 12/27/21 documented as of this encounter
--- OUTSIDE RECORDS SUMMARY | 2025-01-23 15:07 | XMS_ITS | Encounter Summary ---
Author Organization [employer] Address [address] [place] [address] Care Team Providers Care Deburr Technician Name Role Phone Tierney Goncalves PENSION EXAMINER Primary Care Provider [phone] Encounter Details Date Type Department Care Team (Late st Contact Info) Description 01/23/2025 Orders Only [facility] External Provider, [facility] Social History Tobacco Use Types Packs/Day Years [...] Associated Diagnosis Comments US PELVIS TRANSVAGINAL Routine 01/23/2025 2:18 PM EDT documented in this encounter Results * US Pelvis Transvaginal (01/23/2025 2:18 PM EDT) Anatomical Region Laterality Modality Pelvis Ultrasound 01/23/2025 2:18 PM EDT Narrative 01/23/2025 2:55 PM EDT [place] [address] Ultrasound Report Signed Patient: Adela Flynn MR#: [id number] : 1960 Acct:[id number] Age/Sex: 64 / F ADM Date: 01/23/25 Loc: .US Attending Dr: Flaco Chatterjee MD Ordering Physician: Flaco Chatterjee MD Date of Service: 01/23/25 Procedure(s): US pelvic and transvaginal Accession Number(s): [id number] cc: Tierney Goncalves PENSION EXAMINER; Flaco Chatterjee MD Reason for Exam: D21.9 [...] 01/23/25 1452 DD/ 1418 TD/TT: 01/23/25 1430 Supervisor Grinding: Procedure Note Donotuseinterpreter, Image - 01/23/2025 [place] [address] Ultrasound Report Signed Patient: Adela Flynn R#: [id number] : 1960cct:[id number] Age/Sex: 64 / FADM Date: 01/23/25 Loc: HO.US Attending Dr: Flaco Chatterjee MD Ordering Physician: Flaco Chatterjee MD Date of Service: 01/23/25 Procedure(s): US pelvic and transvaginal Accession Number(s): [id number] cc: Tierney Goncalves; Flaco Chatterjee MD Reason for Exam: D21.9 [...] 01/23/25 1452 DD/ 1418 TD/TT: 01/23/25 1430 Supervisor Grinding: [facility] External Provider IMG US PROCEDURES Final Result documented in this encounter Visit Diagnoses Not on filedocumented in this encounter Additional Health Concerns Assessment Noted Time PHQ-9 Depression Total Score: 4 09/25/19 25 2:57 PM EDT documented as of this encounter Care Teams Deburr Technician Relationship Specialty Start Date End Date BlairTierney FNP [address] [place] [address] PCP - General Family Medicine 12/27/21 documented as of this encounter
--- OUTSIDE RECORDS SUMMARY | 2025-01-23 15:07 | XMS_ITS | Encounter Summary ---
Author Organization [employer] Address [address] [facility] 7t [place] [address] Care Team Providers Care Machine Adjuster Leader Case Trim Name Role Phone [facility] Primary Care Provider [phone] Reason for Visit * Reason Comments Med Refill Encounter Details Date Type Department Care Team ([facility] st Contact Info) Description 03/13/2023 Refill [facility] [address] [place] [address] [employer] [address] [place] [address] Social History Tobacco Use Types Packs/Day Years [...] documented as of this encounter Care Teams Machine Adjuster Leader Case Trim Relationship Specialty Start Date End Date Tierney Goncalves FNP [address] [place] [id number] PCP - General Family Medicine 12/27/21 documented as of this encounter
--- OUTSIDE RECORDS SUMMARY | 2025-01-23 15:07 | XMS_ITS | Encounter Summary ---
Author Organization [employer] Address [address] [facility] 7t [place] [address] Care Team Providers Care Field Tech Name Role Phone [facility] Primary Care Provider [phone] Reason for Visit * Reason Onset Date Comments ER Follow-up 08/05/2024 Nurse Triage 08/05/2024 Encounter Details Date Type Department Care Team (Late st Contact Info) Description 08/05/2024 Telephone [facility] [address] [place] [address] [facility] [address] [place], [place] [phone] ER Follow-up; Nurse Triage Social History Tobacco [...] 08/05/2024 10:11 AM EDT Date: 08/04/24 Hospital: [facility] Seen for: elevated liver function Symptomatic Yes, can't really eat due to feeling nauseous Pt. States was told needs liver function testing within 48 hours. Called pt. She states she started feeling sick to her stomach x 2 days ago. Pt. Had vomiting ,diarrhea, and chills. Pt went to [facility] ED on 08/04/24. Provider in ED stated [...] pt. Chart but I do not see [facility] ED note in chart. Will send request for [facility] ED report from 08/04/24 to be put [...] For 08/06/24 at 930am with Harika Mensah SMOKING TOBACCO CUTTER OPERATOR for [facility] ED FU and discussion to repeat labs [...] ED visit on : Date: 08/04/24 Hospital: [facility] Seen for: elevated liver function Symptomatic Yes, [...] as of this encounter Care Teams Field Tech Relationship Specialty Start Date End Date Tierney Goncalves FNP [address] [place] [address] PCP - General Family Medicine 12/27/21 documented as of this encounter
--- OUTSIDE RECORDS SUMMARY | 2025-01-23 15:07 | XMS_ITS | Clinical Summary ---
Author Organization [facility] Address [address] [address] Phone Care Team Providers Care Home Energy Auditor Name Role Phone Tierney Goncalves SWETA Primary Care Provider [phone] Social History Tobacco Use Types Packs/Day Years [...] Devices Not on file Insurance [facility] Care Teams Home Energy Auditor Relationship Specialty Start Date End Date Tierney Goncalves FNP [address] [place] [id number] PCP - General Nurse Practitioner 07/31/23 Additional Source Comments The information contained in this document represents components of the legal health record. It is not the complete legal health record.[facility]
--- OUTSIDE RECORDS SUMMARY | 2025-01-23 15:07 | XMS_ITS | Encounter Summary ---
Author Organization [employer] Address [address] [facility] [address] [place] [address] Care Team Providers Care Lawn And Tree Service Spray Supervisor Name Role Phone Tierney Goncalves SAVINGS TELLER Primary Care Provider Encounter Details Date Type Department Care Team (Late st Contact Info) Description 08/05/2024 Orders Only [facility] [address] [place] [address] ProviderEvon MD Social History Tobacco Use Types [...] documented as of this encounter Care Teams Lawn And Tree Service Spray Supervisor Relationship Specialty Start Date End Date Tierney Goncalves FNP [address] [place] [address] PCP - General Family Medicine 12/27/21 documented as of this encounter
== END 2025-01-23 14:02 | disposition home or self-care (01) ==
LOC: HO.US 14:01
PROVIDERS: PCP Registered Nurse; Visit Provider Obstetrics & Gynecology
DX: D21.9 Benign neoplasm of connective and other soft tissue, unspecified (principal)
CPT/HCPCS: 76830; 76856

== ENCOUNTER → 2025-01-23 14:03 | Outpatient (BNV) | payer OTHER, SELFPAY | PROVIDERS: PCP Registered Nurse; Visit Provider Radiology Diagnostic Radiology | DX: D25.9 Leiomyoma of uterus, unspecified (principal) | CPT/HCPCS: 76830; 76856 ==

== ENCOUNTER 2025-01-26 15:48 | Outpatient (AMB) | payer OTHER, SELFPAY ==
--- NOTE | 2025-01-26 15:48 | MHC.OFFVIS ---
Intake Visit Reasons: Ultrasound results Manager Stone Required: No Information Interpreted: non-clinical & clinical Allergies No Known Allergies (No Known Allergies*) Allergy (Verified 01/26/25 15:49) Post menopausal: Yes HPI Comments Details: The patient is scheduled a telehealth visit for ultrasound follow-up regarding uterine myomas , the patient is aware with no complaints no pelvic pain or pressure or vaginal bleeding Pelvic ultrasound done in 01/22 which showed the following: Uterus: The uterus is anteverted and measures 4 x 3.9 x 4.2 cm. The double wall endometrial thickness is 4 mm. Trace fluid is present in the endometrial canal. Multiple uterine leiomyomas are measured. Right upper body: 10 x 10 x 13 mm, previously 15 x 13 x 15 mm. Right upper body/isthmus: 10 11 x 9 mm previously 8 x 12 x 10 mm. Posterior mid body at the margin of the submucosal layer: 13 x 15 x 12 mm previously 12 x 11 x 13 mm Left isthmus: 25 x 21 x 21 mm previously 24 x 23 x 25 mm. Adnexa: Ovaries were not visualized. US/US pelvic and transvaginal IMPRESSION: Uterine leiomyomas appear similar in size to the prior. [facility] Medical History (Updated 01/26/25 @ 15:57 by Flaco Chatterjee MD) Cervical high risk HPV (human papillomavirus) test positive Fibromyalgia Elevated cholesterol Weight loss Karina's disease Non-toxic multinodular goiter Osteoarthritis of left hip Schatzki's ring Hiatal hernia Hx of migraines History of multinodular goiter IBS (irritable bowel syndrome) GERD (gastroesophageal reflux disease) Dysphagia Chronic pain syndrome Spondylosis, lumbar, with myelopathy Sacroiliitis Surgical History (Updated 01/22/25 @ 10:17 by TEVIN Elias) History of carpal tunnel release History of bilateral tubal ligation Hx of dilation and curettage Hx of arthroscopy of right knee History of esophagogastroduodenoscopy (EGD) Hx of colonoscopy History of cholecystectomy Family History Father Unknown family medical history Mother Arthritis Diverticulitis Gastritis Breast cancer Chronic asthma Adenomatous colon polyp HTN (hypertension) Maternal Grandmother Colon cancer Daughter Hypothyroid Daughter Traveling blood clot in leg Obesity Prediabetes Social History Household Members: Spouse Housing: House Are you a primary critical care unit nurse to a significant other at home: No Do you presently have visiting nurse or other home services: No Alcohol intake: never Patient Tobacco Use Status: Former Tobacco user Tobacco use type: Cigarette Years Smoked: 20 service: No Current occupational status: employed 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 History Menstrual Age of Menarche: 13 Telehealth Telehealth Telehealth Platform: [employer] Location of provider rendering services: practice address Location of patient: address on file Patient Identification confirmed using: Name, : Yes Telehealth method: video Patient verbally consented to treatment: Yes Patient verbally consented to billing insurance company: Yes Patient informed of any privacy concerns related to visit: Yes Minutes spent on Phone/Video with Pt.: 3 Assessment & Plan Assessment & Plan (1) Uterine myoma: Code(s): D25.9 - Leiomyoma of uterus, unspecified Category: Medical Plan: Discussed with the patient the findings on pelvic ultrasound & the risk of myosarcoma; in addition reviewed with the patient that malignancy and pre malignancy cannot be ruled out without hysterectomy for pathological evaluation ; furthermore, explained to the patient the limitation of pelvic ultrasound and endometrial biopsy in the setting. Discussed with the patient the options of treatment including expectant management versus hysterectomy; the pros and cons, risks benefits of each approach were discussed with the patient including the fact that in cases of myosarcoma, surgical treatment can lead to early diagnosis and positively affects the prognosis; after further discussion, the patient decided to proceed with expectant management. Will repeat pelvic ultrasound periodically. Instructions given to patient to call in case any of the following occurs: pressure symptoms, abnormal uterine bleeding, pelvic pain; and to schedule a 12-months pelvic ultrasound (order placed) and a follow-up appointment . All questions answered, the patient verbalized understanding and agreed with the plan . (2) Fluid in endometrial cavity: Code(s): N85.9 - Noninflammatory disorder of uterus, unspecified Category: Medical Plan: Discussed with the patient the finding of fluid in the endometrial cavity, in spite of no vaginal bleeding the concern is the endometrial fluid visualized on ultrasound in case of cervical stenosis might be bleeding into the endometrial cavity and the blood and/or tissue was are unable to pass through the cervical os. Endometrial sampling in postmenopausal bleeding with endometrial fluid is indicated in case endometrial thickness is above 4 mm, however in cases with thin endometrial stripe, 4 mm and below, without any focal lesions, is a reassuring finding with a high negative predictive value for endometrial pathology including endometrial hyperplasia and/or malignancy or polyps. Instructions given to patient to call in case of vaginal bleeding will proceed with endometrial sampling to rule out endometrial pathology I spent a total of 20 minutes reviewing the chart, talking to the patient via video and documenting in the medical record. Orders: Orders US pelvic and transvaginal 1 Year D25.9 - Leiomyoma of uterus, unspecified Coding Level of Care Code Tele Est Pt Level 3 (31944) Diagnoses Uterine myoma D25.9 Fluid in endometrial cavity N85.9
--- OUTSIDE RECORDS SUMMARY | 2025-01-26 17:52 | XMS_ITS | Encounter Summary ---
Author Organization [facility] Address [address] [place] [address] Phone Care Team Providers Care Call Center Analyst Name Role Phone Pcp, Unknown Primary Care Provider Unavailabl e Tierney Goncalves Primary Care Provider [phone] Encounter Details Date Type Department Care Team (Late st Contact Info) Description 07/24/2023 Procedure Pass [facility]oscopy Admitting Dept Virtual Department [address] [place] [address] Social History Tobacco Use Types Packs/Day Years [...] on filedocumented in this encounter Care Teams Call Center Analyst Relationship Specialty Start Date End Date Pcp, Unknown PCP - General 04/17/23 07/30/23 Tierney Goncalves FNP [address] [place] [address] PCP - General Nurse Practitioner 07/31/23 documented as of this encounter Additional Source Comments The information contained in this document represents components of the legal health record. It is not the complete legal health record.[facility]
--- OUTSIDE RECORDS SUMMARY | 2025-01-26 17:52 | XMS_ITS | Encounter Summary ---
Author Organization [employer] Address [address] [facility] [address] [place] [address] Care Team Providers Care Diving Instructor Name Role Phone Tierney Goncalves LEASING REPRESENTATIVE Primary Care Provider [phone] Encounter Details Date Type Department Care Team ([facility] st Contact Info) Description 09/07/2023 Telephone [facility] [address] [place], [place] [phone] Camron Rios DDS [address] [place], [place] [phone] Social History Tobacco Use Types Packs/Day Years [...] EDT Patient calling to make apt to worm picker parcles documented in this encounter Plan of Treatment Not on file documented as of this encounter Visit Diagnoses Not on filedocumented in this encounter Additional Health Concerns Assessment Noted Time PHQ-9 Depression Total Score: 0 05/16/19 24 3:22 PM EST documented as of this encounter Care Teams Diving Instructor Relationship Specialty Start Date End Date Tierney Goncalves FNP [address] [place] [address] PCP - General Family Medicine 12/27/21 documented as of this encounter
--- OUTSIDE RECORDS SUMMARY | 2025-01-26 17:52 | XMS_ITS | Encounter Summary ---
Author Organization [employer] Address [address] [facility] [address] [place] [address] Care Team Providers Care Molecular Pathologist Name Role Phone Tierney Goncalves DRESS DRAPER Primary Care Provider [phone] Encounter Details Date Type Department Care Team (Late st Contact Info) Description 01/23/2025 Orders Only [facility] External Provider, [facility] Social History Tobacco Use Types Packs/Day [...] PM EDT Narrative 01/23/2025 2:55 PM EDT [place] [address] Ultrasound Report Signed Patient: Adela Flynn MR#: [id number] : 1960 Acct:[id number] Age/Sex: 64 / F ADM Date: 01/23/25 Loc: .US Attending Dr: Flaco Chatterjee MD Ordering Physician: lFaco Chatterjee MD Date of Service: 01/23/25 Procedure(s): US pelvic and transvaginal Accession Number(s): [id number] cc: Tierney Goncalves DRESS DRAPER; Flaco Chatterjee MD Reason for Exam: D21.9 [...] 01/23/25 1452 DD/ 1418 TD/TT: 01/23/25 1430 Production Packager: Procedure Note Donotuseinterpreter, Image - 01/23/2025 [place] [address] Ultrasound Report Signed Patient: Adela Flynn R#: [id number] : [id number]:[id number] Age/Sex: 64 / FADM Date: 01/23/25 Loc: HO.US Attending Dr: Flaco Chatterjee MD Ordering Physician: Flaco Chatterjee MD Date of Service: 01/23/25 Procedure(s): US pelvic and transvaginal Accession Number(s): [id number] cc: Tierney Goncalves; Flaco Chatterjee MD Reason [...] 01/23/25 1452 DD/ 1418 TD/TT: 01/23/25 1430 Production Packager: [facility] External Provider IMG US PROCEDURES Final Result documented in this encounter Visit Diagnoses Not on filedocumented in this encounter Additional Health Concerns Assessment Noted Time PHQ-9 Depression Total Score: 4 09/25/19 25 2:57 PM EDT documented as of this encounter Care Teams Molecular Pathologist Relationship Specialty Start Date End Date South LeeTierney FNP [address] [place] [id number] PCP - General Family Medicine 12/27/21 documented as of this encounter
--- OUTSIDE RECORDS SUMMARY | 2025-01-26 17:52 | XMS_ITS | Encounter Summary ---
Author Organization [employer] Address [address] [facility] 7t [place] [address] Care Team Providers Care Duct Layer Supervisor Name Role Phone [facility] Primary Care Provider [phone] Reason for Visit * Reason Onset Date Comments Prior Authorization 05/16/2024 Encounter Details Date Type Department Care Team (Late st Contact Info) Description 05/16/2024 Telephone [facility] [address] [place] [address] [facility] [address] [place] [address] Prior Authorization Social History Tobacco Use Types [...] documented as of this encounter Care Teams Duct Layer Supervisor Relationship Specialty Start Date End Date Tierney Goncalves FNP [address] [place] [address] PCP - General Family Medicine 12/27/21 documented as of this encounter
--- OUTSIDE RECORDS SUMMARY | 2025-01-26 17:52 | XMS_ITS | Clinical Summary ---
Author Organization [employer] Address [address] [facility] 7t [place] [address] Care Team Providers Care Wire Frame Maker Name Role Phone Tierney Goncalves DOT COMPLIANCE SPECIALIST Primary Care Provider [phone] Allergies No known active allergies Medications * [...] Overview (12/12/2022): Negative EMB 09/01/22 Followed by [facility] VISITING TEACHER Mixed hyperlipidemia 05/26/2022 Overview (05/26/2022): 03/2022 ASCVD 2.8% Diet controlled Healthcare maintenance 04/02/2022 Overview (08/15/2023): Mammo: 02/2023 bi-rads 2 Pap: 05/2021 though C VISITING TEACHER, NIL HPV +'colpo PADMINI 1, repeat co-testing due 09/2023 C-scope: 2017, has upcoming appointment BMD: Routine age 67 HCV Screen: Neg 2015 HIV Screen: Neg 2016 Immunizations: declines COVID booster today. Otherwise UTD Screening Labs: A1c-4.8, 2020 Assessment & Plan (04/02/2022 1:22 PM EST): Mammo: 02/2022 bi-rads 2, repeat 02/2023 Pap: 05/2021 though [facility] VISITING TEACHER, NIL HPV +, pt does not [...] dysphagia and early satiety - Followed by [facility] GI with previously benign EGD w/ esophageal spasm, negative gastric emptying study, neg. H.pylori biopsy Osteoarthritis of facet joint of lumbar spine Overview (05/18/2022): - Hx of sacroilitis - Previously seen by [facility] ortho and pain mngmt; has received numerous steroid injections with minimal sx improvement. Has tried PT for various concerns without improvement. - Is not currently followed by ortho or pain mngmt Non-toxic multinodular goiter 07/20/2017 Overview (05/18/2022): Benign multi-nodular goiter followed by [facility] endo. Per lats visit note 08/2021, patient to reconsider thyroidectomy if sx of dysphagia worsen; has follow up in 6 months - Per chart review pt was referred to [place] for possible thyroidectomy however pt does not have transportation. Insurance barriers limit more local access. -FNA of left mid pole nodule on 04/20/16 consistent with benign follicular nodule. 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 Per visit note plan to monitor q. 6 months and consider biopsy if WBC count < 2 or development of B sx Diffuse spasm of esophagus 05/17/2016 Fibromyalgia 04/28/2016 Overview (01/02/2023): Duloxetine 40mg daily Amitriptyline 10mg at bedtime Chronic back pain, shoulder pain Hx of sacroilitis Previously seen by [facility] ortho and pain mngmt; has received numerous [...] Department Care Team Description 01/23/2025 Orders Only [facility] External Provider, [facility] 01/22/2025 Refill [facility] [address] [place], [place] [phone] Hammond Tierney, DOT COMPLIANCE SPECIALIST Migraine without aura, not refractory 01/12/2025 Refill [facility] [address] [place] [address] Hammond Tierney, [facility] Migraine without aura, not refractory 11/17/2024 Refill [facility] [address] [place], [place] [phone] Hammond Tierney, DOT COMPLIANCE SPECIALIST from Last 3 Months Immunizations Immunization Administration [...] US PELVIS TRANSVAGINAL Routine 2:18 PM EDT HEPATITIS PANEL, GENERAL Routine 08/04/2024 [...] PM EDT Narrative 01/23/2025 2:55 PM EDT [place] [address] Ultrasound Report Signed Patient: Adela Flynn MR#: [id number] : 1960 Acct:[id number] Age/Sex: 64 / F ADM Date: 01/23/25 Loc: .US Attending Dr: Flaco Chatterjee MD Ordering Physician: Flaco Chatterjee MD Date of Service: 01/23/25 Procedure(s): US pelvic and transvaginal Accession Number(s): [id number] cc: [facility]; Flaco Chatterjee MD Reason for Exam: D21.9 [...] 01/23/25 1452 DD/ 1418 TD/TT: 01/23/25 1430 Associate Professor Of Kinesiology: Procedure Note Donotuseinterpreter, Image - 01/23/[address] [address] Ultrasound Report Signed Patient: Adela Flynn YMR#: [id number] : 1960cct:[id number] Age/Sex: 64 / FADM Date: 01/23/25 Loc: HO.US Attending Dr: Flaco Chatterjee MD Ordering Physician: Flaco Chatterjee MD Date of Service: 01/23/25 Procedure(s): US pelvic and transvaginal Accession Number(s): [id number] cc: Tierney GoncalvesP; Flaco Chatterjee MD Reason for Exam: D21.9 [...] 01/23/25 1452 DD/ 1418 TD/TT: 01/23/25 1430 Associate Professor Of Kinesiology: [facility] External Provider IMG US PROCEDURES Final Result * Hepatitis Panel, General (08/04/2024 7:29 AM EDT) Hepatitis A IgM Nonreactive Nonreactive [facility] Comment:IgM antibodies to SERRANO V not detected; does not exclude earlyacute or recovered HAV infection. ~Hepatitis B Surface Antibody REACTIVE Nonreactive [facility] Comment:REACTIVE: > 11.99 mI U/mL Hepatitis B Core Antibody Nonreactive Nonreactive [facility] Hepatitis C Antibody Nonreactive Nonreactive [facility] Comment:Antibodies to HCV no t detected; does not exclude early acuteHCV infection. Hepatitis B Surface Ag Negative Negative [facility] 08/04/2024 7:29 AM EDT 08/04/2024 7:34 AM EDT Generic External Data Provider LAB BLOOD ORDERAB LES Final Result Performing Organization Address City/State/[facility] Co de Phone Number [facility] [address] [place] [phone] * BI Mammogram Screening Tomosynthesis Bilateral (03/17/2024 2:15 PM EST) Anatomical Region Laterality Modality Breast Bilateral Mammography 03/17/2024 2:15 PM EST Narrative 03/25/2024 3:23 PM EST [facility] [address] [place] [address] Mammography Report Signed Patient: Adela Flynn MR#: [id number] : 1960 Acct:[id number] Age/Sex: 64 / F ADM Date: 03/17/24 Loc: HO.MAMMO Attending Dr: Tierney Goncalves DOT COMPLIANCE SPECIALIST Ordering Physician: Tierney Goncalves DOT COMPLIANCE SPECIALIST Results: 2Beni gn Findings Date of Service: 03/17/24 Follow Up: 1 Year From Orig inal Mammogram Procedure(s): MM tomosynthesis screening BI Accession Number(s): [id number] cc: Tierney Goncalves DOT COMPLIANCE SPECIALIST EXAMINATION: MM SCREENING DIGITAL BREAST TOMOSYNTHESIS, BILATERAL [...] 03/25/24 1520 DD/ 1415 TD/TT: 03/17/24 1430 Associate Professor Of Kinesiology: Procedure Note Donotuseinterpreter, Image - 03/25/2024 [place] [facility] [address] [place] [address] Mammography Report Signed Patient: Adela Flynn YMR#: [id number] : 2Acct:[id number] Age/Sex: 64 / FADM Date: 03/17/24 Loc: SAMANTHA Attending Dr: Tierney Goncalves DOT COMPLIANCE SPECIALIST Ordering Physician: Tierney Goncalves FNPResults: 2Beni gn Findings Date of Service: 03/17/24Follow Up: 1 Year From Orig inal Mammogram Procedure(s): MM tomosynthesis screening BI Accession Number(s): [id number] cc: Tierney Goncalves DOT COMPLIANCE SPECIALIST EXAMINATION: MM SCREENING DIGITAL BREAST TOMOSYNTHESIS, BILATERAL [...] 03/25/24 1520 DD/ 1415 TD/TT: 03/17/24 1430 Associate Professor Of Kinesiology: [facility] DOT COMPLIANCE SPECIALIST IMG BI PROCEDURES Final Resul t * Colposcopy (12/17/2023 10:24 AM EDT) [facility] Provider IN CLINIC/BEDSIDE ORDERAB LES Final Result * (ABNORMAL) PAP/HPV (11/05/2023) Pap Smear 1. NILM 1. NILM HPV Detected(A ) Undetected, Indeterminate , Quantitative, Not Detected Historical Provider HEALTH MAINTENANCE Final Result * Hm Colonoscopy (03/06/2023 8:12 AM EST) Historical Provider HEALTH MAINTENANCE Final Result from Last 3 Months or Most Recently Relevant to Health Maintenance Insurance [facility] , [address] [place] [address] DENTAL - HSN PARTIAL (MEDICAID) Care Teams Wire Frame Maker Relationship Specialty Start Date End Date Tierney Goncalves FNP [address] [place] [address] PCP - General Family Medicine 12/27/21
--- OUTSIDE RECORDS SUMMARY | 2025-01-26 17:52 | XMS_ITS | Encounter Summary ---
Author Organization [employer] Address [address] [facility] 7t [place] [address] Care Team Providers Care Surveying Teacher Name Role Phone Tierney Goncalves DIRECTOR OF EARLY CHILDHOOD EDUCATION Primary Care Provider [phone] Reason for Visit * Reason Onset Date Comments case clarification 07/31/2023 Encounter Details Date Type Department Care Team ([facility] st Contact Info) Description 07/31/2023 Telephone [facility] ADULT DENTAL [address] [place] [address] Camron Rios DDS [address] [place], [place] [phone] case clarification Social History Tobacco Use Types [...] documented as of this encounter Care Teams Surveying Teacher Relationship Specialty Start Date End Date Tierney Goncalves FNP [address] [place] [address] PCP - General Family Medicine 12/27/21 documented as of this encounter
--- OUTSIDE RECORDS SUMMARY | 2025-01-26 17:52 | XMS_ITS | Encounter Summary ---
Author Organization [employer] Address [address] [facility] [address], [place] [address] Care Team Providers Care Utilization Management Manager Name Role Phone [facility] Primary Care Provider [phone] Encounter Details Date Type Department Care Team ([facility] st Contact Info) Description 05/16/2022 Telephone [facility] MEDICINE [address] [place], [place] [phone] [facility] [address] [place], [place] [phone] Social History Tobacco Use Types Packs/Day Years [...] on filedocumented in this encounter Care Teams Utilization Management Manager Relationship Specialty Start Date End Date Tierney Goncalves FNP [address] [place] [address] PCP - General Family Medicine 12/27/21 documented as of this encounter
--- OUTSIDE RECORDS SUMMARY | 2025-01-26 17:52 | XMS_ITS | Encounter Summary ---
Author Organization [employer] Address [address] [facility] [address] 7t [place] [address] Care Team Providers Care Occupational Safety And Health Manager Name Role Phone Tierney Goncalves HOUSEKEEPING DIRECTOR Primary Care Provider [phone] Encounter Details Date Type Department Care Team (Late st Contact Info) Description 08/08/2023 Orders Only [facility] MEDICINE 230 [place] [address] ProviderEvon MD Social History Tobacco Use Types [...] documented as of this encounter Care Teams Occupational Safety And Health Manager Relationship Specialty Start Date End Date Tierney Goncalves FNP [address] [place] [address] PCP - General Family Medicine 12/27/21 documented as of this encounter
--- OUTSIDE RECORDS SUMMARY | 2025-01-26 17:52 | XMS_ITS | Encounter Summary ---
Author Organization [facility] Address [address] [place] [address] [place] [phone] Phone Care Team Providers Care Kindergarten Instructional Assistant Name Role Phone Tierney Goncalves Primary Care Provider [phone] Encounter Details Date Type Department Care Team (Late st Contact Info) Description 07/31/2023 Procedure Pass [facility] Endoscopy Admitting Dept Virtual Department 30 [place] [address] Social History Tobacco Use Types Packs/Day Years [...] on filedocumented in this encounter Care Teams Kindergarten Instructional Assistant Relationship Specialty Start Date End Date Tierney Goncalves FNP [address] [place] [address] PCP - General Nurse Practitioner 07/31/23 documented as of this encounter Additional Source Comments The information contained in this document represents components of the legal health record. It is not the complete legal health record.[facility]
--- OUTSIDE RECORDS SUMMARY | 2025-01-26 17:52 | XMS_ITS | Encounter Summary ---
Author Organization [employer] Address [address] 7t [place] [address] Care Team Providers Care Customer Solutions Representative Name Role Phone Tierney Goncalves YOUTH ADVOCATE Primary Care Provider [phone] Encounter Details Date Type Department Care Team (Late st Contact Info) Description 08/05/2024 Orders Only [facility]EDS [address] [place] [address] ProviderEvon MD Social History Tobacco Use Types [...] as of this encounter Care Teams Customer Solutions Representative Relationship Specialty Start Date End Date Tierney Goncalves FNP [address] [place] [address] PCP - General Family Medicine 12/27/21 documented as of this encounter
--- OUTSIDE RECORDS SUMMARY | 2025-01-26 17:52 | XMS_ITS | Encounter Summary ---
Author Organization [employer] Address [address] [facility] [address] [address] Care Team Providers Care Protective Services Officer Name Role Phone [facility] Primary Care Provider [phone] Reason for Visit * Reason Comments Med Refill Encounter Details Date Type Department Care Team ([facility] st Contact Info) Description 07/21/2022 Refill [facility] [address] [place] [address] [facility] 230 [place] [address] Joint pain in both hands Social History [...] documented as of this encounter Care Teams Protective Services Officer Relationship Specialty Start Date End Date Tierney Goncalves FNP [address] [place] [address] PCP - General Family Medicine 12/27/21 documented as of this encounter
--- OUTSIDE RECORDS SUMMARY | 2025-01-26 17:52 | XMS_ITS | Encounter Summary ---
Author Organization [employer] Address [address] [facility] 7t [place] [address] Care Team Providers Care Pediatric Genetic Counselor Name Role Phone [facility] Primary Care Provider [phone] Reason for Visit * Reason Onset Date Comments Med Refill 01/22/2025 Encounter Details Date Type Department Care Team (Late st Contact Info) Description 01/22/2025 Refill [facility] 230 [place] [address] [facility] 230 [place] [address] Migraine without aura, not refractory Social History [...] MG tablet To be sent to: - [id number] - [place], [place] - [address] [facility] documented in this encounter Plan of Treatment Not on file documented as of this encounter Visit Diagnoses Diagnosis Migraine without aura, not refractory documented in this encounter Additional Health Concerns Assessment Noted Time PHQ-9 Depression Total Score: 4 09/25/19 2:57 PM EDT documented as of this encounter Care Teams Pediatric Genetic Counselor Relationship Specialty Start Date End Date Tierney Goncalves FNP [address] [place] [address] PCP - General Family Medicine 12/27/21 documented as of this encounter
--- OUTSIDE RECORDS SUMMARY | 2025-01-26 17:52 | XMS_ITS | Encounter Summary ---
Author Organization [employer] Address [address] [facility] 7t [place] [address] Care Team Providers Care Chicken Sexer Name Role Phone [facility] Primary Care Provider [phone] Reason for Visit * Reason Comments Med Refill Encounter Details Date Type Department Care Team ([facility] st Contact Info) Description 03/13/2023 Refill [facility]INE 230 [place] [address] [facility] 230 [place] [address] Social History Tobacco Use Types Packs/Day Years [...] documented as of this encounter Care Teams Chicken Sexer Relationship Specialty Start Date End Date Tierney Goncalves FNP [address] [place] [address] PCP - General Family Medicine 12/27/21 documented as of this encounter
--- OUTSIDE RECORDS SUMMARY | 2025-01-26 17:52 | XMS_ITS | Encounter Summary ---
Author Organization [employer] Address [address] [facility] 7t [place] [address] Care Team Providers Care Attendant Honor Bar Name Role Phone [facility] Primary Care Provider [phone] Reason for Visit * Reason Comments Med Refill Encounter Details Date Type Department Care Team ([facility] st Contact Info) Description 08/19/2023 Refill [facility]INE 230 [place], [place] [phone] [facility] 230 [place] [address] Fibromyalgia Social History Tobacco Use Types Packs/Day [...] documented as of this encounter Care Teams Attendant Honor Bar Relationship Specialty Start Date End Date Tierney Goncalves FNP [address] [place] [address] PCP - General Family Medicine 12/27/21 documented as of this encounter
--- OUTSIDE RECORDS SUMMARY | 2025-01-26 17:52 | XMS_ITS | Encounter Summary ---
Author Organization [employer] Address [address] [facility] [address] 7t [place] [address] Care Team Providers Care Shell Core And Molding Supervisor Name Role Phone Tierney Goncalves SOUND TECHNICIAN Primary Care Provider [phone] Encounter Details Date Type Department Care Team (Late st Contact Info) Description 11/13/2023 Orders Only [facility] 230 [place] [address] ProviderEvon MD Social History Tobacco Use Types [...] documented as of this encounter Care Teams Shell Core And Molding Supervisor Relationship Specialty Start Date End Date Tierney Goncalves FNP [address] [place] [address] PCP - General Family Medicine 12/27/21 documented as of this encounter
--- OUTSIDE RECORDS SUMMARY | 2025-01-26 17:52 | XMS_ITS | Encounter Summary ---
Author Organization [employer] Address [address] [facility] 7t [place] [address] Care Team Providers Care Eap Consultant Name Role Phone Ivanna [facility] Primary Care Provider [phone] Reason for Visit * Reason Onset Date Comments ER Follow-up 08/05/2024 Nurse Triage 08/05/2024 Encounter Details Date Type Department Care Team (Late st Contact Info) Description 08/05/2024 Telephone [facility] 230 [place] [address] [facility] 230 [place], [place] [phone] ER Follow-up; Nurse Triage Social History Tobacco [...] 08/05/2024 10:11 AM EDT Date: 08/04/24 Hospital: [facility] Seen for: elevated liver function Symptomatic Yes, can't really eat due to feeling nauseous Pt. States was told needs liver function testing within 48 hours. Called pt. She states she started feeling sick to her stomach x 2 days ago. Pt. Had vomiting ,diarrhea, and chills. Pt went to [facility] ED on 08/04/24. Provider in ED stated [...] pt. Chart but I do not see [facility] ED note in chart. Will send request for [facility] ED report from 08/04/24 to be put [...] For 08/06/24 at 930am with Harika Mensah PRODUCTION OPERATIONS ENGINEER for [facility] ED FU and discussion to repeat labs [...] ED visit on : Date: 08/04/24 Hospital: [facility] Seen for: elevated liver function Symptomatic Yes, [...] documented as of this encounter Care Teams Eap Consultant Relationship Specialty Start Date End Date Tierney Goncalves FNP [address] [place] [address] PCP - General Family Medicine 12/27/21 documented as of this encounter
--- OUTSIDE RECORDS SUMMARY | 2025-01-26 17:52 | XMS_ITS | Encounter Summary ---
Author Organization [employer] Address [address] [facility] 7t [place] [address] Care Team Providers Care Wild Life Photographer Name Role Phone [facility] Primary Care Provider [phone] Reason for Visit * Reason Comments Med Refill Encounter Details Date Type Department Care Team ([facility] st Contact Info) Description 01/12/2025 Refill [facility] MEDICINE [address] [place] [address] [facility] 230 [place] [address] Migraine without aura, not refractory Social History [...] documented as of this encounter Care Teams Wild Life Photographer Relationship Specialty Start Date End Date Tierney Goncalves FNP [address] [place] [address] PCP - General Family Medicine 12/27/21 documented as of this encounter
--- OUTSIDE RECORDS SUMMARY | 2025-01-26 17:52 | XMS_ITS | Clinical Summary ---
Author Organization [facility] Address [address] [address] Phone Care Team Providers Care Academic Administrator Name Role Phone Tierney Goncalves SWETA Primary Care Provider [phone] Social History Tobacco Use Types Packs/Day Years [...] Devices Not on file Insurance [employer] DIRECT [facility] DIRECT [facility] Care Teams Academic Administrator Relationship Specialty Start Date End Date Tierney Goncalves FNP [address] [place] [address] PCP - General Nurse Practitioner 07/31/23 Additional Source Comments The information contained in this document represents components of the legal health record. It is not the complete legal health record.[facility]
== END 2025-01-26 16:29 | disposition home or self-care (01) ==
LOC: HO.HWS 15:48
PROVIDERS: PCP Registered Nurse; Visit Provider Obstetrics & Gynecology
DX: D25.9 Leiomyoma of uterus, unspecified (principal); N85.9 Noninflammatory disorder of uterus, unspecified
CPT/HCPCS: 99213

== ENCOUNTER 2025-01-30 08:17 | Outpatient (AMB) | payer OTHER, SELFPAY ==
[2025-01-30 08:29] VITALS: BMI 22.3
--- NOTE | 2025-01-30 08:29 | MHC.OFFVIS ---
Vital Signs 01/30/25 08:29 Height 5 ft 3 in Weight 126 lb BMI 22.3 Intake Visit Reasons: OV-Right hand, CTR-discuss possible surgery? Intake Note: Adela is a 64 year old left hand dominant female who presents today for follow up of her Mild Right Carpal Tunnel Syndrome. Patient reports symptoms are every other day, especially in the mornings . She would like to discuss surgery today. S/P Left Carpal Tunnel Release 11/24/[address] Soni. Allergies No Known Allergies (No Known Allergies*) Allergy (Verified 01/30/25 08:35) HPI HPI OV-Right hand, CTR-discuss possible surgery?: Details: Adela is a 64 year old left hand dominant female who presents today for follow up of her Mild Right Carpal Tunnel Syndrome. Patient reports symptoms are every other day, especially in the mornings . She would like to discuss surgery today. S/P Left Carpal Tunnel Release 11/24/[address] Soni. [facility] Medical History (Updated 01/26/25 @ 15:57 by Flaco Chatterjee MD) Cervical high risk HPV (human papillomavirus) test positive Fibromyalgia Elevated cholesterol Weight loss Karina's disease Non-toxic multinodular goiter Osteoarthritis of left hip Schatzki's ring Hiatal hernia Hx of migraines History of multinodular goiter IBS (irritable bowel syndrome) GERD (gastroesophageal reflux disease) Dysphagia Chronic pain syndrome Spondylosis, lumbar, with myelopathy Sacroiliitis Surgical History History of carpal tunnel release History of bilateral tubal ligation Hx of dilation and curettage Hx of arthroscopy of right knee History of esophagogastroduodenoscopy (EGD) Hx of colonoscopy History of cholecystectomy Family History Father Unknown family medical history Mother Arthritis Diverticulitis Gastritis Breast cancer Chronic asthma Adenomatous colon polyp HTN (hypertension) Maternal Grandmother Colon cancer Daughter Hypothyroid Daughter Traveling blood clot in leg Obesity Prediabetes Social History Household Members: Spouse Housing: House Are you a primary healthcare applications analyst to a significant other at home: No Do you presently have visiting nurse or other home services: No Alcohol intake: never Patient Tobacco Use Status: Former Tobacco user Tobacco use type: Cigarette Years Smoked: 18 service: No Current occupational status: employed 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 Neuro: Normal sensation of the tips of all digits of the bilateral hand at this time Vascular: Cap refill brisk Pain: No pain with range of motion of the right hand ROM: Patient is able to make a closed fist and extend all digits of both hands fully Range of motion of bilateral wrists full and intact, but slightly painful Skin: No lacerations or abrasions. General: No ecchymosis, erythema, or evidence of infection. Psych: Appears grossly normal Affect normal Attitude cooperative Results Reviewed Results Reviewed: IMPRESSION: 1. This is an abnormal study. 2. There is electrodiagnostic evidence for bilateral mild median neuropathy at the wrist, consistent with carpal tunnel syndrome. 3. There is no electrodiagnostic evidence for ulnar neuropathy, brachial plexopathy, or cervical radiculopathy. Thank you for your kind referral. Chanda Castaneda MD, LAKISHA Assessment & Plan Assessment & Plan (1) Bilateral carpal tunnel syndrome: Code(s): G56.03 - Carpal tunnel syndrome, bilateral upper limbs Category: Medical Plan 1. Right carpal tunnel syndrome Symptoms intermittent, daily, worse at night I educated the patient about the condition. I discussed both operative and nonoperative treatment options. The patient would like to proceed with surgery. The risks and benefits of operative treatment were discussed with the patient and the patient wishes to proceed with surgery. These risks include, but are not limited to, risk of damage to blood vessels, nerves, tendons, infection, recurrence, incomplete relief of preoperative symptoms, persistent pain, possible need for further surgery, and the risks associated with regional blocks and/or anesthesia. Plan is to take the patient to the operating room at some point in the next few weeks for the following procedures: 1. Right carpal tunnel release under local anesthesia All of the preoperative paperwork including the consent was discussed today. All of the patient's questions were answered in the clinic today. The patient understands that they will be in contact with our director business travel to discuss scheduling their procedure. Patient denies diabetes, blood thinners, asthma, heart issues, lung issues, kidney issues, or current smoking. Coding Level of Care Code Est Pt Level 4 (77367) Diagnoses Bilateral carpal tunnel syndrome G56.03
--- OUTSIDE RECORDS SUMMARY | 2025-01-30 08:33 | XMS_ITS | Encounter Summary ---
Author Organization [employer] Address [address] [facility] 7t [place] [address] Care Team Providers Care Division Officer Weapons Department Name Role Phone [facility] Primary Care Provider [phone] Reason for Visit * Reason Comments Med Refill Encounter Details Date Type Department Care Team ([facility] st Contact Info) Description 08/19/2023 Refill [facility] [address] [place], [place] [phone] [facility] [address] [place] [address] Fibromyalgia Social History Tobacco Use Types Packs/Day [...] documented as of this encounter Care Teams Division Officer Weapons Department Relationship Specialty Start Date End Date Tierney Goncalves FNP [address] [place] [address] PCP - General Family Medicine 12/27/21 documented as of this encounter
--- OUTSIDE RECORDS SUMMARY | 2025-01-30 08:33 | XMS_ITS | Encounter Summary ---
Author Organization [employer] Address [address] [facility] [address] 7t [place] [address] Care Team Providers Care Activities Coordinator Name Role Phone Tierney Goncalves FINAL ASSEMBLY WORKER Primary Care Provider [phone] Encounter Details Date Type Department Care Team ([facility] st Contact Info) Description 09/07/2023 Telephone [facility] ADULT DENTAL [address] [place], [place] [phone] Camron Rios DDS [address] [place], [place] [phone] Social History Tobacco Use Types Packs/Day Years [...] EDT Patient calling to make apt to apple picking supervisor parcles documented in this encounter Plan of Treatment Not on file documented as of this encounter Visit Diagnoses Not on filedocumented in this encounter Additional Health Concerns Assessment Noted Time PHQ-9 Depression Total Score: 0 05/16/19 24 3:22 PM EST documented as of this encounter Care Teams Activities Coordinator Relationship Specialty Start Date End Date Tierney Goncalves FNP [address] [place] [address] PCP - General Family Medicine 12/27/21 documented as of this encounter
--- OUTSIDE RECORDS SUMMARY | 2025-01-30 08:33 | XMS_ITS | Encounter Summary ---
Author Organization [employer] Address [address] [facility] 7t [place] [address] Care Team Providers Care Cap Blocker Name Role Phone Tierney Goncalves HEBREW CANTOR Primary Care Provider [phone] Reason for Visit * Reason Onset Date Comments case clarification 07/31/2023 Encounter Details Date Type Department Care Team ([facility] st Contact Info) Description 07/31/2023 Telephone [facility] ADULT DENTAL [address] [place] [address] Camron Rios DDS [address] [place], [place] [phone] case clarification Social History Tobacco Use Types [...] documented as of this encounter Care Teams Cap Blocker Relationship Specialty Start Date End Date Tierney Goncalves FNP [address] [place] [address] PCP - General Family Medicine 12/27/21 documented as of this encounter
--- OUTSIDE RECORDS SUMMARY | 2025-01-30 08:33 | XMS_ITS | Encounter Summary ---
Author Organization [employer] Address [address] [facility] [address] 7t [place] [address] Care Team Providers Care Stem Teacher Name Role Phone Tierney Goncalves OFFICE 365 CONSULTANT Primary Care Provider [phone] Encounter Details Date Type Department Care Team (Late st Contact Info) Description 08/08/2023 Orders Only [facility] MEDIC[facility] 230 [place] [address] ProviderEvon MD Social History Tobacco Use Types [...] documented as of this encounter Care Teams Stem Teacher Relationship Specialty Start Date End Date Tierney Goncalves FNP [address] [place] [address] PCP - General Family Medicine 12/27/21 documented as of this encounter
--- OUTSIDE RECORDS SUMMARY | 2025-01-30 08:33 | XMS_ITS | Encounter Summary ---
Author Organization [employer] Address [address] [facility] [address] 7t [place] [address] Care Team Providers Care Supervisor Major Appliance Assembly Name Role Phone Tierney Goncalves THERAPY TECHNICIAN Primary Care Provider [phone] Encounter Details Date Type Department Care Team (Late st Contact Info) Description 11/13/2023 Orders Only [facility] MEDICINE [address] [place] [address] ProviderEvon MD Social History Tobacco Use Types [...] as of this encounter Care Teams Supervisor Major Appliance Assembly Relationship Specialty Start Date End Date Tierney Goncalves FNP [address] [place] [address] PCP - General Family Medicine 12/27/21 documented as of this encounter
--- OUTSIDE RECORDS SUMMARY | 2025-01-30 08:34 | XMS_ITS | Clinical Summary ---
Author Organization [employer] Address 75 [facility] 7t [place] [address] Care Team Providers Care Circus Rider Name Role Phone Tierney Goncalves A/C TECHNICIAN Primary Care Provider [phone] Allergies No known active allergies Medications * [...] Overview (12/12/2022): Negative EMB 09/01/22 Followed by [facility] Mixed hyperlipidemia 05/26/2022 Overview (05/26/2022): 03/2022 ASCVD 2.8% Diet controlled Healthcare maintenance 04/02/2022 Overview (08/15/2023): Mammo: 02/2023 bi-rads 2 Pap: 05/2021 though C STEEL ENGRAVER, NIL HPV +'colpo PADMINI 1, repeat co-testing due 09/2023 C-scope: 2017, has upcoming appointment BMD: Routine age 67 HCV Screen: Neg 2015 HIV Screen: Neg 2016 Immunizations: declines COVID booster today. Otherwise UTD Screening Labs: A1c-4.8, 2020 Assessment & Plan (04/02/2022 1:22 PM EST): Mammo: 02/2022 bi-rads 2, repeat 02/2023 Pap: 05/2021 though [facility], NIL HPV +, pt does not now [...] dysphagia and early satiety - Followed by [facility] with previously benign EGD w/ esophageal spasm, negative gastric emptying study, neg. H.pylori biopsy Osteoarthritis of facet joint of lumbar spine Overview (05/18/2022): - Hx of sacroilitis - Previously seen by [facility] ortho and pain mngmt; has received numerous steroid injections with minimal sx improvement. Has tried PT for various concerns without improvement. - Is not currently followed by ortho or pain mngmt Non-toxic multinodular goiter 07/20/2017 Overview (05/18/2022): Benign multi-nodular goiter followed by [facility] end[facility]. Per lats visit note 08/2021, patient to reconsider thyroidectomy if sx of dysphagia worsen; has follow up in 6 months - Per chart review pt was referred to [place] for possible thyroidectomy however pt does not have transportation. Insurance barriers limit more local access. -FNA of left mid pole nodule on 04/20/16 consistent with benign follicular nodule. 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 Per visit note plan to monitor q. 6 months and consider biopsy if WBC count < 2 or development of B sx Diffuse spasm of esophagus 05/17/2016 Fibromyalgia 04/28/2016 Overview (01/02/2023): Duloxetine 40mg daily Amitriptyline 10mg at bedtime Chronic back pain, shoulder pain Hx of sacroilitis Previously seen by [facility]o and pain mngmt; has received numerous [...] Department Care Team Description 01/23/2025 Orders Only [facility] External Provider, [facility] 01/22/2025 Refill [facility] [address] [place], [place] [phone] Iona Tierney, A/C TECHNICIAN Migraine without aura, not refractory 01/12/2025 Refill [facility] 230 [place] [address] Iona Tierney, [facility] Migraine without aura, not refractory 11/17/2024 Refill [facility] 230 [place], [place] [phone] Iona Tierney, A/C TECHNICIAN from Last 3 Months Immunizations Immunization Administration [...] PM EDT Narrative 01/23/2025 2:55 PM EDT [place] [address] Ultrasound Report Signed Patient: Adela Flynn MR#: [id number] : 1960 Acct:[id number] Age/Sex: 64 / F ADM Date: 01/23/25 Loc: .US Attending Dr: Flaco Chatterjee MD Ordering Physician: Flaco Chatterjee MD Date of Service: 01/23/25 Procedure(s): US pelvic and transvaginal Accession Number(s): [id number] cc: [facility]; Flaco Chatterjee MD Reason for Exam: D21.9 [...] 01/23/25 1452 DD/ 1418 TD/TT: 01/23/25 1430 Correctional Cook: Procedure Note Donotuseinterpreter, Image - 01/23/[address] [address] Ultrasound Report Signed Patient: Adela Flynn YMR#: [id number] : 1960cct:[id number] Age/Sex: 64 / FADM Date: 01/23/25 Loc: HO.US Attending Dr: Flaco Chatterjee MD Ordering Physician: Flaco Chatterjee MD Date of Service: 01/23/25 Procedure(s): US pelvic and transvaginal Accession Number(s): [id number] cc: Tierney GoncalvesP; Flaco Chatterjee MD Reason [...] 01/23/25 1452 DD/ 1418 TD/TT: 01/23/25 1430 Correctional Cook: [facility] External Provider IMG US PROCEDURES Final Result * Hepatitis Panel, General (08/04/2024 7:29 AM EDT) Hepatitis A IgM Nonreactive Nonreactive [facility] Comment:IgM antibodies to SERRANO V not detected; does not exclude earlyacute or recovered HAV infection. ~Hepatitis B Surface Antibody REACTIVE Nonreactive [facility] Comment:REACTIVE: > 11.99 mI U/mL Hepatitis B Core Antibody Nonreactive Nonreactive [facility] Hepatitis C Antibody Nonreactive Nonreactive [facility] Comment:Antibodies to HCV no t detected; does not exclude early acuteHCV infection. Hepatitis B Surface Ag Negative Negative [facility] 08/04/2024 7:29 AM EDT 08/04/2024 7:34 AM EDT Generic External Data Provider LAB BLOOD ORDERAB LES Final Result Performing Organization Address City/State/[facility] Co de Phone Number [facility] [address] [place] [phone] * BI Mammogram Screening Tomosynthesis Bilateral (03/17/2024 2:15 PM EST) Anatomical Region Laterality Modality Breast Bilateral Mammography 03/17/2024 2:15 PM EST Narrative 03/25/2024 3:23 PM EST [facility] [address] [place] [address] Mammography Report Signed Patient: Adela Flynn MR#: [id number] : 1960 Acct:[id number] Age/Sex: 64 / F ADM Date: 03/17/24 Loc: HO.MAMMO Attending Dr: Tierney Goncalves A/C TECHNICIAN Ordering Physician: Tierney Goncalves A/C TECHNICIAN Results: 2Beni gn Findings Date of Service: 03/17/24 Follow Up: 1 Year From Orig inal Mammogram Procedure(s): MM tomosynthesis screening BI Accession Number(s): [id number] cc: Tierney Goncalves A/C TECHNICIAN EXAMINATION: MM SCREENING DIGITAL BREAST TOMOSYNTHESIS, BILATERAL [...] 03/25/24 1520 DD/ 1415 TD/TT: 03/17/24 1430 Correctional Cook: Procedure Note Donotuseinterpreter, Image - 03/25/2024 [place] [facility] [address] [place] [address] Mammography Report Signed Patient: Adela Flynn YMR#: [id number] : 2Acct:[id number] Age/Sex: 64 / FADM Date: 03/17/24 Loc: [facility] Attending Dr: Tierney Goncalves A/C TECHNICIAN Ordering Physician: Tierney Goncalves FNPResults: 2Beni gn Findings Date of Service: 03/17/24Follow Up: 1 Year From Orig inal Mammogram Procedure(s): MM tomosynthesis screening BI Accession Number(s): [id number] cc: Tierney Goncalves A/C TECHNICIAN EXAMINATION: MM SCREENING DIGITAL BREAST TOMOSYNTHESIS, BILATERAL [...] 03/25/24 1520 DD/ 1415 TD/TT: 03/17/24 1430 Correctional Cook: [facility] A/C TECHNICIAN IMG BI PROCEDURES Final Resul t * Colposcopy (12/17/2023 10:24 AM EDT) [facility] Provider IN CLINIC/BEDSIDE ORDERAB LES Final Result * (ABNORMAL) PAP/HPV (11/05/2023) Pap Smear 1. NILM 1. NILM HPV Detected(A ) Undetected, Indeterminate , Quantitative, Not Detected Historical Provider HEALTH MAINTENANCE Final Result * Hm Colonoscopy (03/06/2023 8:12 AM EST) Historical Provider HEALTH MAINTENANCE Final Result from Last 3 Months or Most Recently Relevant to Health Maintenance Insurance [facility] , [address] [place] [address] DENTAL - HSN PARTIAL (MEDICAID) Care Teams Circus Rider Relationship Specialty Start Date End Date Tierney Goncalves FNP [address] [place] [address] PCP - General Family Medicine 12/27/21
--- OUTSIDE RECORDS SUMMARY | 2025-01-30 08:34 | XMS_ITS | Encounter Summary ---
Author Organization [employer] Address [address] [facility] 7t [place] [address] Care Team Providers Care Construction Analyst Name Role Phone Ivanna [facility] Primary Care Provider [phone] Reason for Visit * Reason Onset Date Comments ER Follow-up 08/05/2024 Nurse Triage 08/05/2024 Encounter Details Date Type Department Care Team (Late st Contact Info) Description 08/05/2024 Telephone [facility] 230 [place] [address] [facility] 230 [place], [place] [phone] ER Follow-up; Nurse Triage Social History Tobacco [...] 08/05/2024 10:11 AM EDT Date: 08/04/24 Hospital: [facility] Seen for: elevated liver function Symptomatic Yes, can't really eat due to feeling nauseous Pt. States was told needs liver function testing within 48 hours. Called pt. She states she started feeling sick to her stomach x 2 days ago. Pt. Had vomiting ,diarrhea, and chills. Pt went to [facility] ED on 08/04/24. Provider [...] pt. Chart but I do not see [facility] ED note in chart. Will send request for [facility] ED report from 08/04/24 [...] For 08/06/24 at 930am with Harika Mensah JOCKEY AGENT for [facility] ED FU and discussion [...] ED visit on : Date: 08/04/24 Hospital: [facility] Seen for: elevated liver [...] as of this encounter Care Teams Construction Analyst Relationship Specialty Start Date End Date Tierney Goncalves FNP [address] [place] [address] PCP - General Family Medicine 12/27/21 documented as of this encounter
--- OUTSIDE RECORDS SUMMARY | 2025-01-30 08:34 | XMS_ITS | Encounter Summary ---
Author Organization [employer] Address [address] [facility] 7t [place] [address] Care Team Providers Care Chromium Plater Name Role Phone [facility] Primary Care Provider [phone] Reason for Visit * Reason Comments Med Refill Encounter Details Date Type Department Care Team ([facility] st Contact Info) Description 03/13/2023 Refill [facility] [address] [place] [address] [facility] [address] [place] [address] Social History Tobacco Use Types Packs/Day Years [...] documented as of this encounter Care Teams Chromium Plater Relationship Specialty Start Date End Date Tierney Goncalves FNP [address] [place] [address] PCP - General Family Medicine 12/27/21 documented as of this encounter
--- OUTSIDE RECORDS SUMMARY | 2025-01-30 08:34 | XMS_ITS | Encounter Summary ---
Author Organization [employer] Address [address] [facility] [address] [place] [address] Care Team Providers Care Invoice Checker Name Role Phone [facility] Primary Care Provider Reason for Visit * Reason Comments Med Refill Encounter Details Date Type Department Care Team ([facility] st Contact Info) Description 07/21/2022 Refill [facility] [address] [place] [address] [facility] [address] [place] [address] Joint pain in both hands Social History [...] documented as of this encounter Care Teams Invoice Checker Relationship Specialty Start Date End Date Tierney Goncalves FNP [address] [place] [address] PCP - General Family Medicine 12/27/21 documented as of this encounter
--- OUTSIDE RECORDS SUMMARY | 2025-01-30 08:34 | XMS_ITS | Encounter Summary ---
Author Organization [employer] Address [address] [facility] [place] [address] Care Team Providers Care Director International Name Role Phone [facility] Primary Care Provider [phone] Encounter Details Date Type Department Care Team ([facility] st Contact Info) Description 05/16/2022 Telephone [facility] MEDICINE 230 [place], [place] [phone] [facility] 230 [place], [place] [phone] Social History Tobacco Use Types Packs/Day Years [...] on filedocumented in this encounter Care Teams Director International Relationship Specialty Start Date End Date Tierney Goncalves FNP [address] [place] [address] PCP - General Family Medicine 12/27/21 documented as of this encounter
--- OUTSIDE RECORDS SUMMARY | 2025-01-30 08:34 | XMS_ITS | Encounter Summary ---
Author Organization [employer] Address 75 [facility] 7t [place] [address] Care Team Providers Care Beef Specialist Name Role Phone [facility] Primary Care Provider Reason for Visit * Reason Comments Med Refill Encounter Details Date Type Department Care Team ([facility] st Contact Info) Description 01/12/[address] [facility] MEDICINE [address] [place] [address] [facility] 230 [place] [address] Migraine without aura, not refractory Social History [...] is your housing situation today? I have dael hernandez 09/12/[address] you [...] documented as of this encounter Care Teams Beef Specialist Relationship Specialty Start Date End Date Tierney Goncalves FNP 230 [place] [address] PCP - General Family Medicine 12/27/21 documented as of this encounter
--- OUTSIDE RECORDS SUMMARY | 2025-01-30 08:34 | XMS_ITS | Encounter Summary ---
Author Organization [facility] Address [address] [place] [address] Phone Care Team Providers Care Tube Blower Name Role Phone Pcp, Unknown Primary Care Provider Unavailabl e Tierney Goncalves Primary Care Provider [phone] Encounter Details Date Type Department Care Team (Late st Contact Info) Description 07/24/2023 Procedure Pass [facility]oscopy Admitting Dept Virtual Department [address] [place] [address] Social History Tobacco Use Types Packs/Day Years [...] on filedocumented in this encounter Care Teams Tube Blower Relationship Specialty Start Date End Date Pcp, Unknown PCP - General 04/17/23 07/30/23 Tierney Goncalves FNP 230 [place] [address] PCP - General Nurse Practitioner 07/31/23 documented as of this encounter Additional Source Comments The information contained in this document represents components of the legal health record. It is not the complete legal health record.[facility]
--- OUTSIDE RECORDS SUMMARY | 2025-01-30 08:34 | XMS_ITS | Encounter Summary ---
Author Organization [employer] Address [address] 7t [place] [address] Care Team Providers Care Associate Professor Of Physics Name Role Phone Tierney Goncalves UNIVERSITY TUTOR Primary Care Provider [phone] Encounter Details Date Type Department Care Team (Late st Contact Info) Description 08/05/2024 Orders Only [facility] CHC MED & PEDS [address] [place] [address] ProviderEvon MD Social History Tobacco Use Types [...] documented as of this encounter Care Teams Associate Professor Of Physics Relationship Specialty Start Date End Date Tierney Goncalves FNP [address] [place] [address] PCP - General Family Medicine 12/27/21 documented as of this encounter
--- OUTSIDE RECORDS SUMMARY | 2025-01-30 08:34 | XMS_ITS | Encounter Summary ---
Author Organization [facility] Address [address] [place] [address] [place] [address] Phone Care Team Providers Care Time Recorder Name Role Phone Tierney Goncalves Primary Care Provider [phone] Encounter Details Date Type Department Care Team (Late st Contact Info) Description 07/31/2023 Procedure Pass [facility] Endoscopy Admitting Dept Virtual Department [address] [place] [address] Social History Tobacco Use Types Packs/Day Years [...] on filedocumented in this encounter Care Teams Time Recorder Relationship Specialty Start Date End Date Tierney Goncalves FNP [address] [place] [address] PCP - General Nurse Practitioner 07/31/23 documented as of this encounter Additional Source Comments The information contained in this document represents components of the legal health record. It is not the complete legal health record.[facility]
--- OUTSIDE RECORDS SUMMARY | 2025-01-30 08:35 | XMS_ITS | Encounter Summary ---
Author Organization [employer] Address [address] [facility] 7t [place] [address] Care Team Providers Care Dressed Poultry Grader Name Role Phone [facility] Primary Care Provider [phone] Reason for Visit * Reason Onset Date Comments Prior Authorization 05/16/2024 Encounter Details Date Type Department Care Team (Late st Contact Info) Description 05/16/2024 Telephone [facility] CHC MED & PEDS [address] [place] [address] [facility] [address] [place] [address] Prior Authorization Social History Tobacco Use Types [...] documented as of this encounter Care Teams Dressed Poultry Grader Relationship Specialty Start Date End Date Tierney Goncalves FNP [address] [place] [address] PCP - General Family Medicine 12/27/21 documented as of this encounter
--- OUTSIDE RECORDS SUMMARY | 2025-01-30 08:35 | XMS_ITS | Clinical Summary ---
Author Organization [facility] Address [address] [address] Phone Care Team Providers Care Manager Instrumentation Name Role Phone Tierney Goncalves SWETA Primary Care Provider [phone] Social History Tobacco Use Types Packs/Day Years [...] Devices Not on file Insurance [facility] Care Teams Manager Instrumentation Relationship Specialty Start Date End Date Tierney Goncalves FNP [address] [place] [address] PCP - General Nurse Practitioner 07/31/23 Additional Source Comments The information contained in this document represents components of the legal health record. It is not the complete legal health record.[facility]
== END 2025-01-30 08:54 | disposition home or self-care (01) ==
LOC: HO.HOS 08:17
PROVIDERS: PCP Registered Nurse
DX: G56.03 Carpal tunnel syndrome, bilateral upper limbs (principal)
CPT/HCPCS: 99214

== ENCOUNTER 2025-02-02 09:57 | Day surgery (SDC) | payer OTHER, SELFPAY ==
--- NOTE | 2025-02-02 13:10 | P.OP_ITS ---
Operative Note Operative Note Date of Service: 02/02/25 Narrative: Preop diagnosis: 1. Right Carpal tunnel syndrome Postop diagnosis: same Procedure: 1. Right Carpal tunnel release Surgeon: Joy Soni MD [employer] Courtesy Clerk: None Anesthesia: local block using 1% lidocaine with epinephrine Findings: Thickened transverse carpal ligament. EBL: Less than 5 mL Specimens: None Complications: None Disposition: Brought to recovery room in stable condition Plan: Follow-up for 10-14 days for wound check and suture removal Indications: The patient is 65 years old, with right carpal tunnel syndrome that has been unresponsive to nonoperative management. The risks and benefits of operative treatment including but not limited to risk of damage to blood vessels, nerves, tendons, infection, persistent pain, persistent symptoms, or possible need for additional surgery were discussed with the patient and the patient wishes to proceed with surgery. Procedure: Once consent was obtained a local block was performed using a combination of 1% lidocaine with epinephrine. The patient was then brought back to the operating suite and placed on the operative table in supine position. The right upper extremity was prepped and draped in a standard surgical fashion. Once assured that we had a good block, a 2.0 cm longitudinal incision was made centered over the carpal tunnel. The incision was made through the skin to the subcutaneous tissues using a #15 blade. Dissection was made down to the level of the transverse carpal ligament with care being taken to protect the palmar cutaneous nerve. Once the transverse carpal ligament was clearly visualized, a longitudinal incision was made in the transverse carpal ligament 1st using a #15 blade, then using tenotomy scissors under direct visualization. Care was taken to look for and protect the motor branch of the median nerve when seen in this area. Once satisfied with our carpal tunnel release the wound was copiously irrigated with normal saline and hemostasis was obtained with a brief period of local pressure. The skin edges were reapproximated with some 5.0 nylon suture material and a sterile dressing was applied. The patient appears to have tolerated the procedure well and with no complic ations. All digits were well vascularized at the conclusion of the case.
--- NOTE | 2025-02-02 13:10 | MHC.SHP ---
Pre-Procedural Eval Section A - 24 Hr Update-Section A only Date of Service: 02/02/25 The patient is an INPATIENT: No Changes since office visit: No Cold of Flu in the past 2 weeks, No New Medical Problems, No Changes in Medication and No Patient answered all questions The patient has been examined within 24 hours of the surgical procedure. The History & Physical has been completed within 30 days and I have reviewed it.: Yes Section B - Complete if H&P > 30 days Chief Complaint: Carpal tunnel syndrome, right upper limb Allergies: Allergies Allergy/AdvReac Type Severity Reaction Status Date / Time No Known Allergies (No Known Allergy Verified 01/30/25 08:35 Allergies*) Plan Diagnosis/Plan: Unchanged I have reviewed the history and physical and performed a pertinent physical examination on my patient. No changes have occurred unless specified. Time Spent With Patient Time: Total time managing care of this patient today ____ minutes.
[2025-02-02 13:29] VITALS: BMI 23.4
[2025-02-02 14:09] VITALS: BP 130/66; PULSE 52; RESP 16; O2SAT 98
== END 2025-02-02 14:37 | disposition home or self-care (01) ==
PROVIDERS: PCP Registered Nurse; Visit Provider Orthopaedic Surgery
PROC: (CPT 64721; principal; 2025-02-02 14:20)
DX: G56.01 Carpal tunnel syndrome, right upper limb (principal)
CPT/HCPCS: 64721; J0165; J2003

== ENCOUNTER → 2025-02-02 09:57 | Outpatient (BNV) | payer OTHER, SELFPAY | PROVIDERS: PCP Registered Nurse; Visit Provider Orthopaedic Surgery | DX: G56.01 Carpal tunnel syndrome, right upper limb (principal) | CPT/HCPCS: 64721 ==

== ENCOUNTER 2025-02-17 13:40 | Outpatient (AMB) | payer OTHER, SELFPAY ==
[2025-02-17 13:55] VITALS: BMI 23.4
--- NOTE | 2025-02-17 13:55 | A.OFFVIS_ITS ---
Vital Signs 02/17/25 13:55 Height 5 ft 3 in Weight 132 lb BMI 23.4 Intake Visit Reasons: PO RT CTR 02/02/25 AR Intake Note: Adela is a 64 year old left hand dominant female who presents today post- operatively status post Right Carpal Tunnel Release performed by Dr. Soni on 02/02/25. Patient reports she is doing well. She denies numbness or tingling. She is taking Tylenol Arthritis PRN with relief. Sutures removed and steri strips applied. Allergies No Known Allergies (No Known Allergies*) Allergy (Verified 02/17/25 13:55) HPI HPI PO RT CTR 02/02/25 AR: Details: Adela is a 64 year old left hand dominant female who presents today post- operatively status post Right Carpal Tunnel Release performed by Dr. Soni on 02/02/25. Patient reports she is doing well. She denies numbness or tingling. She is taking Tylenol Arthritis PRN with relief. Sutures removed and steri strips applied. [facility] Medical History (Updated 01/26/25 @ 15:57 by Flaco Chatterjee MD) Cervical high risk HPV (human papillomavirus) test positive Fibromyalgia Elevated cholesterol Weight loss Karina's disease Non-toxic multinodular goiter Osteoarthritis of left hip Schatzki's ring Hiatal hernia Hx of migraines History of multinodular goiter IBS (irritable bowel syndrome) GERD (gastroesophageal reflux disease) Dysphagia Chronic pain syndrome Spondylosis, lumbar, with myelopathy Sacroiliitis Surgical History History of carpal tunnel release History of bilateral tubal ligation Hx of dilation and curettage Hx of arthroscopy of right knee History of esophagogastroduodenoscopy (EGD) Hx of colonoscopy History of cholecystectomy Family History Father Unknown family medical history Mother Arthritis Diverticulitis Gastritis Breast cancer Chronic asthma Adenomatous colon polyp HTN (hypertension) Maternal Grandmother Colon cancer Daughter Hypothyroid Daughter Traveling blood clot in leg Obesity Prediabetes Social History Household Members: Spouse Housing: House Are you a primary rehab care assistant to a significant other at home: No Do you presently have visiting nurse or other home services: No Alcohol intake: never Comment: Counts correct Patient Tobacco Use Status: Former Tobacco user Tobacco use type: Cigarette Years Smoked: 18 service: No Current occupational status: employed 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 Neuro: Normal sensation of the tips of all digits of the right hand at this time Vascular: Cap refill brisk Pain: No tenderness to palpation about the incision site on volar right wrist No pain with range of motion of the right hand ROM: Patient is able to make a closed fist and extend all digits of the right hand fully and without difficulty Skin: Well approximated and well healing incision site noted on the volar right wrist No lacerations or abrasions. General: No ecchymosis, erythema, or evidence of infection. Psych: Appears grossly normal Affect normal Attitude cooperative Assessment & Plan Assessment & Plan (1) Bilateral carpal tunnel syndrome: Code(s): G56.03 - Carpal tunnel syndrome, bilateral upper limbs Category: Medical Plan 1. Status post right carpal tunnel release DOS 02/02/2025 With good symptom resolution postoperatively Patient appears to be recovering well from her procedure Patient is educated about the typical recovery course No under water times one-week, 2 lb weight limit attempts 2 weeks Patient understands this is amenable to this plan Follow-up as needed with any acute concerns Coding Level of Care Code Global (77661) Diagnoses Bilateral carpal tunnel syndrome G56.03
--- OUTSIDE RECORDS SUMMARY | 2025-02-17 18:01 | XMS_ITS | Encounter Summary ---
Author Organization [employer] Address [address] [facility] 7t [place] [address] Care Team Providers Care Distribution Estimator Name Role Phone [facility] Primary Care Provider [phone] Reason for Visit * Reason Comments Med Refill Encounter Details Date Type Department Care Team ([facility] st Contact Info) Description 08/19/2023 Refill [facility] MEDICINE [address] [place], [place] [phone] [facility] [address] [place] [address] Fibromyalgia Social History Tobacco Use Types Packs/Day [...] documented as of this encounter Care Teams Distribution Estimator Relationship Specialty Start Date End Date Tierney Goncalves FNP [address] [place] [address] PCP - General Family Medicine 12/27/21 documented as of this encounter
--- OUTSIDE RECORDS SUMMARY | 2025-02-17 18:01 | XMS_ITS | Encounter Summary ---
Author Organization [employer] Address [address] 7t [place] [address] Care Team Providers Care Manufacturing Chief Engineer Name Role Phone Tierney Goncalves ARCHITECT Primary Care Provider [phone] Encounter Details Date Type Department Care Team (Late st Contact Info) Description 08/08/2023 Orders Only [facility] MEDICINE [address] [place] [address] ProviderEvon MD Social History Tobacco Use Types [...] documented as of this encounter Care Teams Manufacturing Chief Engineer Relationship Specialty Start Date End Date Tierney Goncalves FNP [address] [place] [address] PCP - General Family Medicine 12/27/21 documented as of this encounter
--- OUTSIDE RECORDS SUMMARY | 2025-02-17 18:01 | XMS_ITS | Encounter Summary ---
Author Organization [employer] Address [address] [facility] 7t [place] [address] Care Team Providers Care Database Operator Name Role Phone Tierney Goncalves GUIDE SETTER Primary Care Provider [phone] Reason for Visit * Reason Onset Date Comments case clarification 07/31/2023 Encounter Details Date Type Department Care Team ([facility] st Contact Info) Description 07/31/2023 Telephone [facility] ADULT DENTAL [address] [place] [address] Camron Rios DDS [address] [place], [place] [phone] case clarification Social History Tobacco Use Types [...] documented as of this encounter Care Teams Database Operator Relationship Specialty Start Date End Date Tierney Goncalves FNP [address] [place] [address] PCP - General Family Medicine 12/27/21 documented as of this encounter
--- OUTSIDE RECORDS SUMMARY | 2025-02-17 18:01 | XMS_ITS | Encounter Summary ---
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
--- OUTSIDE RECORDS SUMMARY | 2025-02-17 18:01 | XMS_ITS | Encounter Summary ---
Author Organization [employer] Address [address] [facility] 7t [place] [address] Care Team Providers Care Aws Solution Architect Name Role Phone [facility] Primary Care Provider [phone] Reason for Visit * Reason Onset Date Comments ER Follow-up 08/05/2024 Nurse Triage 08/05/2024 Encounter Details Date Type Department Care Team (Late st Contact Info) Description 08/05/2024 Telephone [facility] MEDICINE 230 [place] [address] [facility] 230 [place], [place] [phone] ER Follow-up; Nurse Triage Social History Tobacco [...] 08/05/2024 10:11 AM EDT Date: 08/04/24 Hospital: [facility] Seen for: elevated liver function Symptomatic Yes, can't really eat due to feeling nauseous Pt. States was told needs liver function testing within 48 hours. Called pt. She states she started feeling sick to her stomach x 2 days ago. Pt. Had vomiting ,diarrhea, and chills. Pt went to [facility] ED on 08/04/24. Provider in ED stated [...] pt. Chart but I do not see [facility] ED note in chart. Will send request for [facility] ED report from 08/04/24 to be put [...] For 08/06/24 at 930am with Harika Mensah FILM LIBRARIAN for [facility] ED FU and discussion to repeat labs [...] ED visit on : Date: 08/04/24 Hospital: [facility] Seen for: elevated liver function Symptomatic Yes, [...] documented as of this encounter Care Teams Aws Solution Architect Relationship Specialty Start Date End Date Tierney Goncalves FNP [address] [place] [address] PCP - General Family Medicine 12/27/21 documented as of this encounter
--- OUTSIDE RECORDS SUMMARY | 2025-02-17 18:01 | XMS_ITS | Encounter Summary ---
Author Organization [employer] Address [address] [facility] [address] 7t [place] [address] Care Team Providers Care Rib Matcher And Fitter Name Role Phone Tierney Goncalves MANAGER DAIRY Primary Care Provider [phone] Encounter Details Date Type Department Care Team (Late st Contact Info) Description 08/05/2024 Orders Only [facility] CHC MED & PEDS [address] [place] [address] ProviderEvon MD Social History Tobacco Use Types [...] documented as of this encounter Care Teams Rib Matcher And Fitter Relationship Specialty Start Date End Date Tierney Goncalves FNP [address] [place] [address] PCP - General Family Medicine 12/27/21 documented as of this encounter
--- OUTSIDE RECORDS SUMMARY | 2025-02-17 18:01 | XMS_ITS | Encounter Summary ---
Author Organization [employer] Address [address] [facility] 7t [place] [address] Care Team Providers Care Refractory Products Supervisor Name Role Phone [place] [facility] Primary Care Provider [phone] Reason for Visit * Reason Comments Med Refill Encounter Details Date Type Department Care Team ([facility] st Contact Info) Description 01/12/[address] [facility] MEDICINE [address] [place] [address] [facility] 230 [place] [address] Migraine without aura, not refractory Social History [...] documented as of this encounter Care Teams Refractory Products Supervisor Relationship Specialty Start Date End Date Tierney Goncalves FNP [address] [place] [address] PCP - General Family Medicine 12/27/21 documented as of this encounter
--- OUTSIDE RECORDS SUMMARY | 2025-02-17 18:01 | XMS_ITS | Encounter Summary ---
Author Organization [employer] Address [address] [facility] [address] 7t [place] [address] Care Team Providers Care Foundry Hand Name Role Phone Tierney Goncalves NURSERY MANAGER Primary Care Provider [phone] Encounter Details Date Type Department Care Team (Late st Contact Info) Description 11/13/2023 Orders Only [facility] MEDICINE 230 [place] [address] ProviderEvon MD Social History Tobacco Use Types [...] documented as of this encounter Care Teams Foundry Hand Relationship Specialty Start Date End Date Tierney Goncalves FNP [address] [place] [address] PCP - General Family Medicine 12/27/21 documented as of this encounter
--- OUTSIDE RECORDS SUMMARY | 2025-02-17 18:02 | XMS_ITS | Encounter Summary ---
Author Organization [employer] Address [address] [facility] [address], [place] [address] Care Team Providers Care Supervisor Cloth Winding Name Role Phone [facility] Primary Care Provider [phone] Encounter Details Date Type Department Care Team ([facility] st Contact Info) Description 05/16/2022 Telephone [facility] MEDICINE 230 [place], [place] [phone] [place] [facility] 230 [place], [place] [phone] Social History Tobacco Use Types Packs/Day Years [...] on filedocumented in this encounter Care Teams Supervisor Cloth Winding Relationship Specialty Start Date End Date Tierney Goncalves FNP [address] [place] [address] PCP - General Family Medicine 12/27/21 documented as of this encounter
--- OUTSIDE RECORDS SUMMARY | 2025-02-17 18:02 | XMS_ITS | Clinical Summary ---
Author Organization [facility] Address [address] [address] Phone Care Team Providers Care Crew Manager Name Role Phone Tierney Goncalves SWETA Primary Care Provider [phone] Social History Tobacco Use Types Packs/Day Years [...] VACCINE (#1) 2024 COVID-19 VACCINE ( - 2024-2 6 season) 2024 MAMMOGRAM 03/16/2025 03/16/2023, 10/02/2018 RSV [...] Devices Not on file Insurance [facility] DIRECT [facility] DIRECT [facility] PLANS [facility] Care Teams Crew Manager Relationship Specialty Start Date End Date Tierney Goncalves FNP [address] [place] [address] PCP - General Nurse Practitioner 07/31/23 Additional Source Comments The information contained in this document represents components of the legal health record. It is not the complete legal health record.[facility]
--- OUTSIDE RECORDS SUMMARY | 2025-02-17 18:02 | XMS_ITS | Encounter Summary ---
Author Organization [employer] Address [address] [facility] 7t [place] [address] Care Team Providers Care Quality Control Chemist Name Role Phone [facility] Primary Care Provider Reason for Visit * Reason Onset Date Comments Prior Authorization 05/16/2024 Encounter Details Date Type Department Care Team (Late st Contact Info) Description 05/16/2024 Telephone [facility] CHC MED & PEDS [address] [place] [address] [facility] [address] [place] [address] Prior Authorization Social History Tobacco Use Types [...] as of this encounter Care Teams Quality Control Chemist Relationship Specialty Start Date End Date Tierney Goncalves FNP [address] [place] [address] PCP - General Family Medicine 12/27/21 documented as of this encounter
--- OUTSIDE RECORDS SUMMARY | 2025-02-17 18:02 | XMS_ITS | Encounter Summary ---
Author Organization [employer] Address [address] [facility] [place] [address] Care Team Providers Care Line Maintenance Technician Name Role Phone [facility] Primary Care Provider Reason for Visit * Reason Comments Med Refill Encounter Details Date Type Department Care Team ([facility] st Contact Info) Description 07/21/2022 Refill [facility] MEDICINE 230 [place] [address] [facility] 230 [place] [address] Joint pain in both hands Social History [...] documented as of this encounter Care Teams Line Maintenance Technician Relationship Specialty Start Date End Date Tierney Goncalves FNP [address] [place] [address] PCP - General Family Medicine 12/27/21 documented as of this encounter
--- OUTSIDE RECORDS SUMMARY | 2025-02-17 18:02 | XMS_ITS | Clinical Summary ---
Author Organization [employer] Address 75 [facility] 7t [place] [address] Care Team Providers Care Umbrella Mender Name Role Phone Tierney Goncalves CREW LEADER/CONTROL ROOM OPERATOR Primary Care Provider [phone] Allergies No known active allergies Medications * [...] Overview (12/12/2022): Negative EMB 09/01/22 Followed by [facility] GEOSCIENCES ASSOCIATE PROFESSOR Mixed hyperlipidemia 05/26/2022 Overview (05/26/2022): 03/2022 ASCVD 2.8% Diet controlled Healthcare maintenance 04/02/2022 Overview (08/15/2023): Mammo: 02/2023 bi-rads 2 Pap: 05/2021 though [facility] GEOSCIENCES ASSOCIATE PROFESSOR, NIL HPV +'colpo PADMINI 1, repeat co-testing due 09/2023 C-scope: 2017, has upcoming appointment BMD: Routine age 67 HCV Screen: Neg 2015 HIV Screen: Neg 2016 Immunizations: declines COVID booster today. Otherwise UTD Screening Labs: A1c-4.8, 2020 Assessment & Plan (04/02/2022 1:22 PM EST): Mammo: 02/2022 bi-rads 2, repeat 02/2023 Pap: 05/2021 though [facility] GEOSCIENCES ASSOCIATE PROFESSOR, NIL HPV +, pt does not [...] dysphagia and early satiety - Followed by [facility] GI with previously benign EGD w/ esophageal spasm, negative gastric emptying study, neg. H.pylori biopsy Osteoarthritis of facet joint of lumbar spine Overview (05/18/2022): - Hx of sacroilitis - Previously seen by [facility] ortho and pain mngmt; has received numerous steroid injections with minimal sx improvement. Has tried PT for various concerns without improvement. 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 Per lats visit note 08/2021, patient to reconsider thyroidectomy if sx of dysphagia worsen; has follow up in 6 months - Per chart review pt was referred to [facility] for possible thyroidectomy however pt does not have transportation. Insurance barriers limit more local access. -FNA of left mid pole nodule on 04/20/16 consistent with benign follicular nodule. 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 Per visit note plan to monitor q. 6 months and consider biopsy if WBC count < 2 or development of B sx Diffuse spasm of esophagus 05/17/2016 Fibromyalgia 04/28/2016 Overview (01/02/2023): Duloxetine 40mg daily Amitriptyline 10mg at bedtime Chronic back pain, shoulder pain Hx of sacroilitis Previously seen by [facility] ortho and pain mngmt; has received numerous [...] Department Care Team Description 01/23/2025 Orders Only [facility] External Provider, [facility] 01/22/2025 Refill [facility] [address] [place], [place] [phone] [place] Tierney, CREW LEADER/CONTROL ROOM OPERATOR Migraine without aura, not refractory 01/12/2025 Refill [facility] [address] [place] [address] [place] Tierney, [facility] Migraine without aura, not refractory 11/17/2024 Refill [facility] [address] [place], [place] [phone] [place] Tierney, CREW LEADER/CONTROL ROOM OPERATOR from Last 3 Months Immunizations Immunization Administration [...] PM EDT Narrative 01/23/2025 2:55 PM EDT [place] [address] Ultrasound Report Signed Patient: Adela Flynn MR#: [id number] : 1960 Acct:[id number] Age/Sex: 64 / F ADM Date: 01/23/25 Loc: .US Attending Dr: Flaco Chatterjee MD Ordering Physician: Flaco Chatterjee MD Date of Service: 01/23/25 Procedure(s): US pelvic and transvaginal Accession Number(s): [id number] cc: [facility]; Flaco Chatterjee MD Reason for Exam: [...] 01/23/25 1452 DD/ 1418 TD/TT: 01/23/25 1430 Collections And Archives Director: Procedure Note Donotuseinterpreter, Image - 01/23/[address] [address] Ultrasound Report Signed Patient: Adela Flynn YMR#: [id number] : 1960cct:[id number] Age/Sex: 64 / FADM Date: 01/23/25 Loc: HO.US Attending Dr: Flaco Chatterjee MD Ordering Physician: Flaco Chatterjee MD Date of Service: 01/23/25 Procedure(s): US pelvic and transvaginal Accession Number(s): [id number] cc: Tierney GoncalvesP; Flaco Chatterjee MD Reason [...] 01/23/25 1452 DD/ 1418 TD/TT: 01/23/25 1430 Collections And Archives Director: [facility] External Provider IMG US PROCEDURES Final Result * Hepatitis Panel, General (08/04/2024 7:29 AM EDT) Hepatitis A IgM Nonreactive Nonreactive [facility] Comment:IgM antibodies to SERRANO V not detected; does not exclude earlyacute or recovered HAV infection. ~Hepatitis B Surface Antibody REACTIVE Nonreactive [facility] Comment:REACTIVE: > 11.99 mI U/mL Hepatitis B Core Antibody Nonreactive Nonreactive [facility] Hepatitis C Antibody Nonreactive Nonreactive [facility] Comment:Antibodies to HCV no t detected; does not exclude early acuteHCV infection. Hepatitis B Surface Ag Negative Negative [facility] 08/04/2024 7:29 AM EDT 08/04/2024 7:34 AM EDT Generic External Data Provider LAB BLOOD ORDERAB LES Final Result Performing Organization Address City/State/[facility] Co de Phone Number [facility] [address] [place] [phone] * BI Mammogram Screening Tomosynthesis Bilateral (03/17/2024 2:15 PM EST) Anatomical Region Laterality Modality Breast Bilateral Mammography 03/17/2024 2:15 PM EST Narrative 03/25/2024 3:23 PM EST [facility] [address] [place] [address] Mammography Report Signed Patient: Adela Flynn MR#: [id number] : 1960 Acct:[id number] Age/Sex: 64 / F ADM Date: 03/17/24 Loc: HO.MAMMO Attending Dr: Tierney Goncalves CREW LEADER/CONTROL ROOM OPERATOR Ordering Physician: Tierney Goncalves CREW LEADER/CONTROL ROOM OPERATOR Results: 2Beni gn Findings Date of Service: 03/17/24 Follow Up: 1 Year From Orig inal Mammogram Procedure(s): MM tomosynthesis screening BI Accession Number(s): [id number] cc: Tierney Goncalves CREW LEADER/CONTROL ROOM OPERATOR EXAMINATION: MM SCREENING DIGITAL BREAST TOMOSYNTHESIS, [...] Cerda DO Signed By: <Electronically signed by mEma Cerda DO in OV> 03/25/24 1520 DD/ 1415 TD/TT: 03/17/24 1430 Collections And Archives Director: Procedure Note Donotuseinterpreter, Image - 03/25/2024 [facility] [address] [place] [address] Mammography Report Signed Patient: Adela Flynn YMR#: [id number] : 2Acct:[id number] Age/Sex: 64 / FADM Date: 03/17/24 Loc: SAMANTHA Attending Dr: Tierney Goncalves CREW LEADER/CONTROL ROOM OPERATOR Ordering Physician: Tierney Goncalves FNPResults: 2Beni gn Findings Date of Service: 03/17/24Follow Up: 1 Year From Orig inal Mammogram Procedure(s): MM tomosynthesis screening BI Accession Number(s): [id number] cc: Tierney Goncalves CREW LEADER/CONTROL ROOM OPERATOR EXAMINATION: MM SCREENING DIGITAL BREAST TOMOSYNTHESIS, [...] 03/25/24 1520 DD/ 1415 TD/TT: 03/17/24 1430 Collections And Archives Director: [facility] CREW LEADER/CONTROL ROOM OPERATOR IMG BI PROCEDURES Final Resul t * Colposcopy (12/17/2023 10:24 AM EDT) [facility] Provider IN CLINIC/BEDSIDE ORDERAB LES Final Result * (ABNORMAL) PAP/HPV (11/05/2023) Pap Smear 1. NILM 1. NILM HPV Detected(A ) Undetected, Indeterminate , Quantitative, Not Detected Historical Provider HEALTH MAINTENANCE Final Result * Hm Colonoscopy (03/06/2023 8:12 AM EST) Historical Provider HEALTH MAINTENANCE Final Result from Last 3 Months or Most Recently Relevant to Health Maintenance Insurance [facility] , [address] [place] [address] DENTAL - HSN PARTIAL (MEDICAID) Care Teams Umbrella Mender Relationship Specialty Start Date End Date Tierney Goncalves FNP [address] [place] [address] PCP - General Family Medicine 12/27/21
--- OUTSIDE RECORDS SUMMARY | 2025-02-17 18:02 | XMS_ITS | Encounter Summary ---
Author Organization [employer] Address 75 [facility] 7t [place] [address] Care Team Providers Care Senior Software Engineer Name Role Phone [facility] Primary Care Provider [phone] Reason for Visit * Reason Comments Med Refill Encounter Details Date Type Department Care Team ([facility] st Contact Info) Description 03/13/2023 Refill [facility] [address] [place] [address] [facility] [address] [place] [address] Social History Tobacco Use Types Packs/Day Years [...] as of this encounter Care Teams Senior Software Engineer Relationship Specialty Start Date End Date Tierney Goncalves FNP [address] [place] [address] PCP - General Family Medicine 12/27/21 documented as of this encounter
--- OUTSIDE RECORDS SUMMARY | 2025-02-17 18:02 | XMS_ITS | Encounter Summary ---
Author Organization [facility] Address [address] [place] [address] [place] [phone] Phone Care Team Providers Care Annealer Name Role Phone Tierney Goncalves Primary Care Provider [phone] Encounter Details Date Type Department Care Team (Late st Contact Info) Description 07/31/2023 Procedure Pass [facility] Endoscopy Admitting Dept Virtual Department [address] [place] [address] Social History Tobacco Use Types Packs/Day Years [...] on filedocumented in this encounter Care Teams Annealer Relationship Specialty Start Date End Date Tierney Goncalves FNP [address] [place] [address] PCP - General Nurse Practitioner 07/31/23 documented as of this encounter Additional Source Comments The information contained in this document represents components of the legal health record. It is not the complete legal health record.[facility]
--- OUTSIDE RECORDS SUMMARY | 2025-02-17 18:02 | XMS_ITS | Encounter Summary ---
Author Organization [facility] Address [address] [place] [address] Phone Care Team Providers Care Wool Washer Feeder Name Role Phone Pcp, Unknown Primary Care Provider Unavailabl e Tierney Goncalves Primary Care Provider [phone] Encounter Details Date Type Department Care Team (Late st Contact Info) Description 07/24/2023 Procedure Pass [facility] Endoscopy Admitting Dept Virtual Department [address] [place] [address] Social History Tobacco Use Types Packs/Day Years [...] on filedocumented in this encounter Care Teams Wool Washer Feeder Relationship Specialty Start Date End Date Pcp, Unknown PCP - General 04/17/23 07/30/23 Tierney Goncalves FNP [address] [place] [address] PCP - General Nurse Practitioner 07/31/23 documented as of this encounter Additional Source Comments The information contained in this document represents components of the legal health record. It is not the complete legal health record.[facility]
== END 2025-02-17 14:09 | disposition home or self-care (01) ==
LOC: HO.HOS 13:41
PROVIDERS: PCP Registered Nurse
DX: G56.03 Carpal tunnel syndrome, bilateral upper limbs (principal)
CPT/HCPCS: 99024

== ENCOUNTER 2025-03-10 06:08 | Outpatient (REF) | payer OTHER, SELFPAY ==
--- NOTE | ~2025-03-10 | FL_ITS ---
EXAMINATION: FLUOROSCOPY GUIDANCE FOR NEEDLE PLACEMENT CLINICAL INFORMATION: M47.812 - Spondylosis without myelopathy or radiculopathy, cervical region COMPARISON: None available. TECHNIQUE: Fluoroscopy guidance for pain management procedure FINDINGS: Images demonstrate probe and wire projecting over the left lower cervical spine. See procedure note for detailed findings. FLUOROSCOPY TIME: 14 seconds. 2 submitted images. DOSE: 1.00 mGy FL/FL guidance in treatment room IMPRESSION: Fluoroscopy guidance for pain management procedure Electronically signed by: Natty De Los Santos MD 03/10/2025 11:54 AM [facility]
--- OUTSIDE RECORDS SUMMARY | 2025-03-10 06:11 | XMS_ITS | Encounter Summary ---
Author Organization [employer] Address [address] [facility] 7t [place] [address] Care Team Providers Care Fingerprint Classifier Name Role Phone [facility] Primary Care Provider [phone] Reason for Visit * Reason Comments Med Refill Encounter Details Date Type Department Care Team ([facility] st Contact Info) Description 03/13/2023 Refill [facility] [address] [place] [address] [facility] [address] [place] [address] Social History Tobacco Use Types Packs/Day Years [...] documented as of this encounter Care Teams Fingerprint Classifier Relationship Specialty Start Date End Date Tierney Goncalves FNP [address] [place] [phone] PCP - General Family Medicine 12/27/21 documented as of this encounter
--- OUTSIDE RECORDS SUMMARY | 2025-03-10 06:11 | XMS_ITS | Encounter Summary ---
Author Organization [employer] Address [address] [facility] [address], [place] [address] Care Team Providers Care Dispatcher Refinery Name Role Phone [place] [facility] Primary Care Provider [phone] Encounter Details Date Type Department Care Team ([facility] st Contact Info) Description 05/16/2022 Telephone [facility] [address] [place], [place] [phone] [place] [facility] [address] [place], [place] [phone] Social History Tobacco Use Types Packs/Day Years [...] Not at all 05/18/2022 2:28 PM Adela oJe [place] Trouble concentrating on things, such as [...] on filedocumented in this encounter Care Teams Dispatcher Refinery Relationship Specialty Start Date End Date Tierney Goncalves FNP [address] [place] [address] PCP - General Family Medicine 12/27/21 documented as of this encounter
--- OUTSIDE RECORDS SUMMARY | 2025-03-10 06:11 | XMS_ITS | Encounter Summary ---
Author Organization [employer] Address 75 [facility] 7t [place] [address] Care Team Providers Care Boiler Riveter Name Role Phone [facility] Primary Care Provider [phone] Reason for Visit * Reason Onset Date Comments ER Follow-up 08/05/2024 Nurse Triage 08/05/2024 Encounter Details Date Type Department Care Team (Late st Contact Info) Description 08/05/2024 Telephone [facility] [address] [place] [address] [facility] [address] [place], [place] [phone] ER Follow-up; Nurse Triage Social History Tobacco [...] 08/05/2024 10:11 AM EDT Date: 08/04/24 Hospital: [facility] Seen for: elevated liver function Symptomatic Yes, can't really eat due to feeling nauseous Pt. States was told needs liver function testing within 48 hours. Called pt. She states she started feeling sick to her stomach x 2 days ago. Pt. Had vomiting ,diarrhea, and chills. Pt went to [facility] ED on 08/04/24. Provider [...] pt. Chart but I do not see [facility] ED note in chart. Will send request for [facility] ED report from 08/04/24 [...] For 08/06/24 at 930am with Harika Mensah TEACHER EDUCATION DIRECTOR for [facility] ED FU and discussion [...] ED visit on : Date: 08/04/24 Hospital: [facility] Seen for: elevated liver [...] documented as of this encounter Care Teams Boiler Riveter Relationship Specialty Start Date End Date Tierney Goncalves FNP [address] [place] [phone] PCP - General Family Medicine 12/27/21 documented as of this encounter
--- OUTSIDE RECORDS SUMMARY | 2025-03-10 06:11 | XMS_ITS | Clinical Summary ---
Author Organization [facility] Address [address] [address] Phone Care Team Providers Care Equalizer Operator Name Role Phone Tierney Goncalves SWETA Primary Care Provider [phone] Social History Tobacco Use Types Packs/Day Years [...] 10/12/2014 INFLUENZA VACCINE (#1) 2024 COVID-19 VACCINE (1 - 2024-2 6 season) 2024 MAMMOGRAM 03/16/2025 03/16/2023, 10/02/2018 RSV VACCINE (1 - 1-dose 75+ series) 2037 HEPATITIS A VACCINES Aged Out No long er eligible based on patient's age to complete this topic HIB VACCINES Aged Out No longer eligi ble based on patient's age to complete this topic IPV VACCINES Aged Out No longer eligi ble based on patient's age to complete this topic MENINGOCOCCAL VACCINES (ACWY) Aged Out No longer eligible based on patient's age to complete this topic MENINGOCOCCAL VACCINES (B) Aged Out N o longer eligible based on patient's age to complete this topic Medical Devices Not on file Insurance [employer] [facility] [employer] [address] [place] [address] [employer] [facility] [employer] DIRECT [employer] DIRECT [employer] DIRECT CONNECTORCARE DIRECT [facility] DIRECT Care Teams Equalizer Operator Relationship Specialty Start Date End Date Tierney Goncalves FNP [address] [place] [address] PCP - General Nurse Practitioner 07/31/23 Additional Source Comments The information contained in this document represents components of the legal health record. It is not the complete legal health record.[facility]
--- OUTSIDE RECORDS SUMMARY | 2025-03-10 06:11 | XMS_ITS | Encounter Summary ---
Author Organization [employer] Address 75 [facility] 7t [place] [address] Care Team Providers Care Solderer Furnace Name Role Phone Tierney Goncalves [facility] Primary Care Provider [phone] Reason for Visit * Reason Onset Date Comments case clarification 07/31/2023 Encounter Details Date Type Department Care Team ([facility] st Contact Info) Description 07/31/2023 Telephone [facility] [address] [place] [address] Camron Rios DDS [address] [place], [place] [phone] case clarification Social History Tobacco Use Types [...] documented as of this encounter Care Teams Solderer Furnace Relationship Specialty Start Date End Date Tierney Goncalves FNP [address] [place] [address] PCP - General Family Medicine 12/27/21 documented as of this encounter
--- OUTSIDE RECORDS SUMMARY | 2025-03-10 06:11 | XMS_ITS | Clinical Summary ---
Author Organization [employer] Address [address] [facility] 7[address] [place] [address] Care Team Providers Care Financial Professional Name Role Phone Tierney Goncalves CONCERT PIANIST Primary Care Provider [phone] Allergies No known active allergies Medications * [...] IF NEEDED 60 g 1 5 Active DULoxetine (Cymbalta) [address] [...] OR CHEW 60 tablet 1 5 Active topiramate 50 MG tabletIndicatio ns:Migraine without aura, not refractory TAKE 1 TABLET BY MOUTH EVERY MORNING 30 tablet 3 5 Active Active Problems Problem Noted Date [...] Overview (12/12/2022): Negative EMB 09/01/22 [place] [facility] Mixed hyperlipidemia 05/26/2022 Overview (05/26/2022): 03/2022 ASCVD 2.8% Diet controlled Healthcare maintenance 04/02/2022 Overview (08/15/2023): Mammo: 02/2023 bi-rads 2 Pap: 05/2021 though [facility], NIL HPV +'colpo PADMINI 1, repeat co-testing due 09/2023 C-scope: 2017, has upcoming appointment BMD: Routine age 67 HCV Screen: Neg 2016 HIV Screen: Neg 2015 Immunizations: declines COVID booster today. Otherwise UTD Screening Labs: A1c-4.8, 2020 Assessment & Plan (04/02/2022 1:22 PM EST): Mammo: 02/2022 bi-rads 2, repeat 02/2023 Pap: 05/2021 though [facility], NIL HPV +, pt does not now [...] dysphagia and early satiety - Followed [place] [facility] with previously benign EGD w/ esophageal spasm, negative gastric emptying study, neg. H.pylori biopsy Osteoarthritis of facet joint of lumbar spine Overview (05/18/2022): - Hx of sacroilitis - Previously seen [place] [facility] [place] [place] pain mngmt; has received numerous steroid injections with minimal sx improvement. Has tried PT for various concerns without improvement. - Is not currently followed by ortho or pain mngmt Non-toxic multinodular goiter 07/20/2017 Overview (05/18/2022): Benign multi-nodular goiter followed [place] [facility] [place]. Per lats visit note 08/2021, patient to reconsider thyroidectomy if sx of dysphagia worsen; has follow up in 6 months - Per chart review pt was referred to [place] for possible thyroidectomy however pt does not have transportation. Insurance barriers limit more local access. -FNA of left mid pole nodule on 04/20/16 consistent with benign follicular nodule. 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 Per visit note plan to monitor q. 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 MEDICINE [address] [place] [address] Tierney Goncalves FNP Migraine without aura, not refractory from Last 3 Months Immunizations Immunization Administration [...] PM EDT Narrative 01/23/2025 2:55 PM EDT [address] [address] Ultrasound Report Signed Patient: Adela Flynn MR#: [id number] : 1960 Acct:[id number] Age/Sex: 64 / F ADM Date: 01/23/25 Loc: HO.US Attending : Flaco Chatterjee MD Ordering Physician: Flaco Chatterjee MD Date of Service: 01/23/25 Procedure(s): US pelvic and transvaginal Accession Number(s): [id number] [facility] Flaco Chatter[facility] MD Reason for Exam: [...] 01/23/25 1452 DD/ 1418 TD/TT: 01/23/25 1430 Garment Folder: Procedure Note Donotuseinterpreter, Image - 01/23/2025 [place] [address] Ultrasound Report Signed Patient: Adela Flynn R#: [id number] : 1960cct:[id number] Age/Sex: 64 / FADM Date: 01/23/25 Loc: HO.US Attending Dr: Flaco Chatterjee MD Ordering Physician: Flaco Chatterjee MD Date of Service: 01/23/25 Procedure(s): US pelvic and transvaginal Accession Number(s): [id number] cc: [facility]; Flaco Chatterjee MD Reason for Exam: D21.9 [...] 01/23/25 1452 DD/ 1418 TD/TT: 01/23/25 1430 Garment Folder: us [facility] External Provider IMG US PROCEDURES Final Result * Hepatitis Panel, General (08/04/2024 7:29 AM EDT) Hepatitis A IgM Nonreactive Nonreactive [facility] Comment:IgM antibodies to SERRANO V not detected; does not exclude earlyacute or recovered HAV infection. ~Hepatitis B Surface Antibody REACTIVE Nonreactive [facility] Comment:REACTIVE: > 11.99 mI U/mL Hepatitis B Core Antibody Nonreactive Nonreactive [facility] Hepatitis C Antibody Nonreactive Nonreactive [facility] Comment:Antibodies to HCV no t detected; does not exclude early acuteHCV infection. Hepatitis B Surface Ag Negative Negative [facility] 08/04/2024 7:29 AM EDT 08/04/2024 7:34 AM EDT us Generic External Data Provider LAB BLOOD ORDERAB LES Final Result [facility] [address] [place] [phone] * BI Mammogram Screening Tomosynthesis Bilateral (03/17/2024 2:15 PM EST) Anatomical Region Laterality Modality Breast Bilateral Mammography 03/17/2024 2:15 PM EST Narrative 03/25/2024 3:23 PM EST [address] [place] [address] Mammography Report Signed Patient: Adela Flynn MR#: [id number] : 1960 Acct:[id number] Age/Sex: 64 / F ADM Date: 03/17/24 Loc: HO.MAMMO Attending Dr: Tierney Goncalves CONCERT PIANIST Ordering Physician: Tierney Goncalves CONCERT PIANIST Results: 2Beni gn Findings Date of Service: 03/17/24 Follow Up: 1 Year From Orig inal Mammogram Procedure(s): MM tomosynthesis screening BI Accession Number(s): [id number] cc: Tierney Goncalves CONCERT PIANIST EXAMINATION: MM SCREENING DIGITAL BREAST TOMOSYNTHESIS, BILATERAL [...] by: Emma Cerda DO 03/25/2024 03:20 PM [facility]ict[place] By: Emma eCrda DO Signed By: <Electronically signed by Emma Cerda DO in OV> 03/25/24 1520 DD/ 1415 TD/TT: 03/17/24 1430 Garment Folder: Procedure Note Donotuseinterpreter, Image - 03/25/2024 [facility] [address] [place], [place] [address] Mammography Report Signed Patient: Adela Flynn R#: [id number] : 2Acct:[id number] Age/Sex: 64 / FADM Date: 03/17/24 Loc: HODanyMAMMO Attending Dr: Tierney Goncalves CONCERT PIANIST Ordering Physician: Tierney Goncalves FNPResults: 2Beni gn Findings Date of Service: 03/17/24Follow Up: 1 Year From Orig ina Mammogram Procedure(s): MM tomosynthesis screening BI Accession Number(s): [id number] cc: Tierney Goncalves CONCERT PIANIST EXAMINATION: MM SCREENING DIGITAL BREAST TOMOSYNTHESIS, BILATERAL [...] 03/25/24 1520 DD/ 1415 TD/TT: 03/17/24 1430 Garment Folder: [facility] CONCERT PIANIST IMG BI PROCEDURES Final Resul t * [...] Most Recently Relevant to Health Maintenance [place] [address] , [address] [place] [address] DENTAL - HSN PARTIAL (MEDICAID) Care Teams Financial Professional Relationship Specialty Start Date End Date Tierney Goncalves FNP [address] [place] [address] PCP - General Family Medicine 12/27/21
--- OUTSIDE RECORDS SUMMARY | 2025-03-10 06:11 | XMS_ITS | Encounter Summary ---
Author Organization [employer] Address [address] [facility] [address] [place] [address] Care Team Providers Care Balance Wheel Screw Hole Tapper Name Role Phone [facility] Primary Care Provider [phone] Reason for Visit * Reason Comments Med Refill Encounter Details Date Type Department Care Team ([facility] st Contact Info) Description 07/21/2022 Refill [facility] MEDICINE [address] [place] [address] [facility] 230 [place] [address] Joint pain in both hands Social History [...] documented as of this encounter Care Teams Balance Wheel Screw Hole Tapper Relationship Specialty Start Date End Date Tierney Goncalves FNP [address] [place] [address] PCP - General Family Medicine 12/27/21 documented as of this encounter
--- OUTSIDE RECORDS SUMMARY | 2025-03-10 06:11 | XMS_ITS | Encounter Summary ---
Author Organization [facility] Address [address] [place] [address] Phone Care Team Providers Care Game Engineer Name Role Phone Pcp, Unknown Primary Care Provider Unavailabl e Tierney Goncalves Primary Care Provider [phone] Encounter Details Date Type Department Care Team (Late st Contact Info) Description 07/24/2023 Procedure Pass [facility] Endoscopy Admitting Dept Virtual Department [address] [place] [address] Social History Tobacco Use Types Packs/Day Years [...] on filedocumented in this encounter Care Teams Game Engineer Relationship Specialty Start Date End Date Pcp, Unknown PCP - General 04/17/23 07/30/23 Tierney Goncalves FNP [address] [place] [address] PCP - General Nurse Practitioner 07/31/23 documented as of this encounter Additional Source Comments The information contained in this document represents components of the legal health record. It is not the complete legal health record.[facility]
--- OUTSIDE RECORDS SUMMARY | 2025-03-10 06:11 | XMS_ITS | Encounter Summary ---
Author Organization [facility] Address [address] [place] [address] [place] [address] Phone Care Team Providers Care Lead Performance Support Analyst Name Role Phone Tierney Goncalves Primary Care Provider [phone] Encounter Details Date Type Department Care Team (Late st Contact Info) Description 07/31/2023 Procedure Pass [facility] Endoscopy Admitting Dept Virtual Department [address] [place] [address] Social History Tobacco Use Types Packs/Day Years [...] on filedocumented in this encounter Care Teams Lead Performance Support Analyst Relationship Specialty Start Date End Date Tierney Goncalves FNP [address] [place] [address] PCP - General Nurse Practitioner 07/31/23 documented as of this encounter Additional Source Comments The information contained in this document represents components of the legal health record. It is not the complete legal health record.[facility]
--- OUTSIDE RECORDS SUMMARY | 2025-03-10 06:11 | XMS_ITS | Encounter Summary ---
Author Organization [employer] Address [address] [facility] [address] 7t [place] [address] Care Team Providers Care Thread Winder Name Role Phone Tierney Goncalves MULTIPLE PRESSURE RIVETER OPERATOR Primary Care Provider Encounter Details Date Type Department Care Team ([facility] st Contact Info) Description 09/07/2023 Telephone [facility]ULT DENTAL [address] [place], [place] [phone] Camron Rios DDS [address] [place], [place] [phone] Social History Tobacco Use Types Packs/Day Years [...] EDT Patient calling to make apt to cigar packer and picker parcles documented in this encounter Plan of Treatment Not on file documented as of this encounter Visit Diagnoses Not on filedocumented in this encounter Additional Health Concerns Assessment Noted Time PHQ-9 Depression Total Score: 0 05/16/19 24 3:22 PM EST documented as of this encounter Care Teams Thread Winder Relationship Specialty Start Date End Date Tierney Goncalves FNP [address] [place] [address] PCP - General Family Medicine 12/27/21 documented as of this encounter
--- OUTSIDE RECORDS SUMMARY | 2025-03-10 06:11 | XMS_ITS | Encounter Summary ---
Author Organization [employer] Address [address] [facility] 7t [place] [address] Care Team Providers Care Change Consultant Name Role Phone [facility] Primary Care Provider [phone] Reason for Visit * Reason Comments Med Refill Encounter Details Date Type Department Care Team ([facility] st Contact Info) Description 08/19/2023 Refill [facility] MEDICINE [address] [place] [address] [facility] [address] [place] [address] Fibromyalgia Social History Tobacco Use Types Packs/Day [...] documented as of this encounter Care Teams Change Consultant Relationship Specialty Start Date End Date Tierney Goncalves FNP [address] [place] [address] PCP - General Family Medicine 12/27/21 documented as of this encounter
--- OUTSIDE RECORDS SUMMARY | 2025-03-10 06:11 | XMS_ITS | Encounter Summary ---
Author Organization [employer] Address [address] [facility] [address] 7[address] [place] [address] Care Team Providers Care Ceramics Engineer Name Role Phone Tierney Goncalves WHITE LEAD FILTERER Primary Care Provider [phone] Encounter Details Date Type Department Care Team (Late st Contact Info) Description 08/08/2023 Orders Only [facility] MEDICINE [address] [place] [address] ProviderEvon MD Social History Tobacco Use Types [...] documented as of this encounter Care Teams Ceramics Engineer Relationship Specialty Start Date End Date Tierney Goncalves FNP [address] [place] [address] PCP - General Family Medicine 12/27/21 documented as of this encounter
--- OUTSIDE RECORDS SUMMARY | 2025-03-10 06:11 | XMS_ITS | Encounter Summary ---
Author Organization [employer] Address [address] [facility] [address] 7[address] [place] [address] Care Team Providers Care Residential Child Care Counselor Name Role Phone Tierney Goncalves LEGAL CONTRACTS SPECIALIST Primary Care Provider Encounter Details Date Type Department Care Team (Late st Contact Info) Description 11/13/2023 Orders Only [facility] MEDICINE [address] [place] [address] ProviderEvon MD Social History Tobacco Use Types [...] documented as of this encounter Care Teams Residential Child Care Counselor Relationship Specialty Start Date End Date Tierney Goncalves FNP [address] [place] [address] PCP - General Family Medicine 12/27/21 documented as of this encounter
--- OUTSIDE RECORDS SUMMARY | 2025-03-10 06:11 | XMS_ITS | Encounter Summary ---
Author Organization [employer] Address [address] [facility] [address] 7[address] [place] [address] Care Team Providers Care Video Production Specialist Name Role Phone Tierney Goncalves BROADCAST CHIEF ENGINEER Primary Care Provider [phone] Encounter Details Date Type Department Care Team (Late st Contact Info) Description 08/05/2024 Orders Only [facility] MED & PEDS [address] [place] [address] ProviderEvon MD Social History Tobacco Use Types [...] documented as of this encounter Care Teams Video Production Specialist Relationship Specialty Start Date End Date Tierney Goncalves FNP [address] [place] [address] PCP - General Family Medicine 12/27/21 documented as of this encounter
--- OUTSIDE RECORDS SUMMARY | 2025-03-10 06:11 | XMS_ITS | Encounter Summary ---
Author Organization [employer] Address [address] [facility] 7t [place] [address] Care Team Providers Care Child Care Center Assistant Director Name Role Phone [facility] Primary Care Provider [phone] Reason for Visit * Reason Onset Date Comments Prior Authorization 05/16/2024 Encounter Details Date Type Department Care Team (Late st Contact Info) Description 05/16/2024 Telephone [facility] CHC MED & PEDS [address] [place] [address] [facility] [address] [place] [address] Prior Authorization Social History Tobacco Use Types [...] documented as of this encounter Care Teams Child Care Center Assistant Director Relationship Specialty Start Date End Date Tierney Goncalves FNP [address] [place] [address] PCP - General Family Medicine 12/27/21 documented as of this encounter
--- OUTSIDE RECORDS SUMMARY | 2025-03-10 06:11 | XMS_ITS | Encounter Summary ---
Author Organization [employer] Address [address] [facility] 7t [place] [address] Care Team Providers Care Dairy Quality Assurance Officer Name Role Phone [facility] Primary Care Provider [phone] Reason for Visit * Reason Comments Med Refill Encounter Details Date Type Department Care Team ([facility] st Contact Info) Description 01/12/2025 Refill [facility] MEDICINE [address] [place] [address] [facility] [address] [place] [address] Migraine without aura, not refractory Social History [...] documented as of this encounter Care Teams Dairy Quality Assurance Officer Relationship Specialty Start Date End Date Tierney Goncalves FNP [address] [place] [address] PCP - General Family Medicine 12/27/21 documented as of this encounter
== END 2025-03-10 06:09 | disposition home or self-care (01) ==
LOC: CF 06:08
PROVIDERS: Visit Provider Anesthesiology
DX: M47.812 Spondylosis without myelopathy or radiculopathy, cervical region (principal)
CPT/HCPCS: 64555; 64590; J2003

== ENCOUNTER 2025-03-10 07:46 | Outpatient (AMB) | payer OTHER, SELFPAY ==
[2025-03-10 07:48] VITALS: BP 102/52; PULSE 54; RESP 16; O2SAT 100; BMI 23.4
--- NOTE | 2025-03-10 07:48 | A.OFFVIS_ITS ---
Vital Signs 03/10/25 07:48 03/10/25 08:20 Height 5 ft 3 in Weight 132 lb BMI 23.4 BP 102/52 L 126/67 Blood Pressure Location Lt brachial Lt brachial Position Sitting Sitting Respiration 16 16 Pulse 54 60 Pulse Source Pulse Oximeter Pulse Oximeter Pulse Oximetry (%) 100 100 Oxygen Delivery Method Room Air Room Air Intake Visit Reasons: Left C4 SPRINT PNS Allergies No Known Allergies (No Known Allergies*) Allergy (Verified 02/17/25 13:55) [facility] Medical History (Updated 01/26/25 @ 15:57 by Flaco Chatterjee MD) Cervical high risk HPV (human papillomavirus) test positive Fibromyalgia Elevated cholesterol Weight loss Karina's disease Non-toxic multinodular goiter Osteoarthritis of left hip Schatzki's ring Hiatal hernia Hx of migraines History of multinodular goiter IBS (irritable bowel syndrome) GERD (gastroesophageal reflux disease) Dysphagia Chronic pain syndrome Spondylosis, lumbar, with myelopathy Sacroiliitis Surgical History History of carpal tunnel release History of bilateral tubal ligation Hx of dilation and curettage Hx of arthroscopy of right knee History of esophagogastroduodenoscopy (EGD) Hx of colonoscopy History of cholecystectomy Family History Father Unknown family medical history Mother Arthritis Diverticulitis Gastritis Breast cancer Chronic asthma Adenomatous colon polyp HTN (hypertension) Maternal Grandmother Colon cancer Daughter Hypothyroid Daughter Traveling blood clot in leg Obesity Prediabetes Social History Household Members: Spouse Housing: House Are you a primary lawn care specialist to a significant other at home: No Do you presently have visiting nurse or other home services: No Alcohol intake: never Comment: Counts correct Patient Tobacco Use Status: Former Tobacco user Tobacco use type: Cigarette Years Smoked: 20 service: No Current occupational status: employed 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 History Menstrual Age of Menarche: 13 Physical Exam Vital Signs: Last Vital Signs Pulse 60 03/10/25 08:20 Resp 16 03/10/25 08:20 BP 126/67 03/10/25 08:20 Pulse Ox 100 03/10/25 08:20 Oxygen Delivery Method Room Air 03/10/25 08:20 BMI result Body Mass Index 23.4 Assessment & Plan Assessment & Plan (1) Cervical spondylosis: Code(s): M47.812 - Spondylosis without myelopathy or radiculopathy, cervical region Category: Medical Plan Percutaneous implantation of peripheral nerve stimulation Sprint system left C5 the risks, benefits and alternatives were discussed with the patient and informed consent was obtained, patient was placed in the prone position and padded to foster comfort. Time out was performed delineating correct site and side of the procedure , name and of the patient, patient participated in time out procedure. Theupper back and posterior neck of the patient was prepped with ChloraPrep and draped with sterile self adhesive utility towels. C-arm was brought over the operating field and clear picture of the C5 lamina on the left was delineated on the screen. The upper central portion of the lamina was chosen as a target of the needle tip insertion . After identifying and marking the intended target, the skin around the planned entry point and the subcutaneous tissues were injected with local anesthetic forming skin wheal.. A percutaneous sleeve and stimulating probe lead introduction system were assembled, inserted and advanced through the skin wheal to the point of interest under C-arm viewL left C5 lamina., the introducer needle was delivered to a location in proximity to the nerve. Multiple stimulation parameters were used to deliver stimulation to the nerve in concert with stimulating at multiple positions around the nerve. The nerve target acquisition was confirmed noting generation of in the corresponding to the nerve being stimulated. Various electrical parameter combinations were tested, and the lead location was adjusted (physically relocated) until the patient indicated overlapping the distribution of the patient?s typical region of pain. The stimulating probe was removed from the introducer and a percutaneous lead was guided through the needle and delivered to a location in similar proximity to the nerve. Final location was verified with electrical stimulation. The introducer needle was removed, and the exposed end of the percutaneous lead was attached to an external stimulator unit. At the end of the case various electrical parameter combinations were again tested until the patient indicated paresthesia or muscle tension overlapping the distribution of the patient?s typical region of pain. After confirming that lead impedance was in the normal range, the external unit was detached, the needle was removed, and the lead was anchored at the skin. The leads were threaded into the connector block and electrical continuity and desired patient response was confirmed. The connector block was attached to the external stimulator unit. The site was covered with a sterile occlusive dressing and a image was taken to document final placement. Upon completion of the procedure the patient was taken outside the OR where she recovered uneventfully she went home without immediate complications. Orders: Orders FL guidance in treatment room Today M47.812 - Spondylosis without myelopathy or radiculopathy, cervical region Coding Level of Care Code Procedure Only Diagnoses Cervical spondylosis M47.812 Implantable Device Implantable Device Implantable Devices Qty Account Specialist Implant Date Expiration Date Analgesic PENS system 1 [employer] 03/10/25
[2025-03-10 08:20] VITALS: BP 126/67; PULSE 60; RESP 16; O2SAT 100
== END 2025-03-10 08:45 | disposition home or self-care (01) ==
LOC: HO.PMCPRC 07:46
PROVIDERS: PCP Registered Nurse; Visit Provider Anesthesiology
DX: M47.812 Spondylosis without myelopathy or radiculopathy, cervical region (principal)
CPT/HCPCS: 64555; 64590

== ENCOUNTER 2025-03-16 15:12 | Outpatient (AMB) | payer OTHER, SELFPAY ==
[2025-03-16 15:15] VITALS: BP 110/62; PULSE 72; RESP 16; O2SAT 96; BMI 23.2
--- NOTE | 2025-03-16 15:15 | MHC.OFFVIS ---
Vital Signs 03/16/25 15:15 Height 5 ft 3 in Weight 131 lb BMI 23.2 BP 110/62 Blood Pressure Location Rt brachial Position Sitting Respiration 16 Pulse 72 Pulse Source Pulse Oximeter Pulse Oximetry (%) 96 Oxygen Delivery Method Room Air Intake Visit Reasons: Post op follow up Recruiting Specialist Required: No Accompanied by: Self / Same As Patient Allergies No Known Allergies (No Known Allergies*) Allergy (Verified 03/16/25 15:15) HPI Comments Details: The patient is a 65-year-old female presenting with one week status post left C5 Sprint PNS placement on 03/10/[address] Azul. The patient reports persistent neck pain with a minimum pain level of 6/10 since the procedure. The pain is primarily located on the left side and is associated with tingling sensations around the left shoulder when the stimulation setting is increased. Denies any untoward effects with previous Sprint PNS therapy. Current settings are 60 with minimal paresthesia, increased to 65-70 with good tolerance during today's visit. She also reports right sided neck pain and is scheduled for Sprint for right side on 03/24/25. 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 She reports difficulty in finding time to relax and manage her pain effectively due to her caregiving responsibilities. The dressing was removed today. Lead insertion site look clean, dry, intact, no redness, no swelling, no pathological discharge. Area was cleansed with Chloraprep, applied Bacitracin and covered with Sprint Tegaderm film and gauze dressing. Denies any recent cough, cold, infection, fever or any significant changes in medical history since last office visit. Past Procedures: 03/10/25: Left C5 medial branch Sprint PNS placement-50% ongoing pain relief 09/12/24: Right diagnostic femoral nerve block under sedation-80% pain relief for 24 hours 08/26/24: Bilateral Diagnostic C4-C5-C6 MBB-80-90% pain relief for 6 hours [facility] Medical History Cervical high risk HPV (human papillomavirus) test positive Fibromyalgia Elevated cholesterol Weight loss Karina's disease Non-toxic multinodular goiter Osteoarthritis of left hip Schatzki's ring Hiatal hernia Hx of migraines History of multinodular goiter IBS (irritable bowel syndrome) GERD (gastroesophageal reflux disease) Dysphagia Chronic pain syndrome Spondylosis, lumbar, with myelopathy Sacroiliitis Surgical History History of carpal tunnel release History of bilateral tubal ligation Hx of dilation and curettage Hx of arthroscopy of right knee History of esophagogastroduodenoscopy (EGD) Hx of colonoscopy History of cholecystectomy Family History Father Unknown family medical history Mother Arthritis Diverticulitis Gastritis Breast cancer Chronic asthma Adenomatous colon polyp HTN (hypertension) Maternal Grandmother Colon cancer Daughter Hypothyroid Daughter Traveling blood clot in leg Obesity Prediabetes Social History Household Members: Spouse Housing: House Are you a primary acute care nursing assistant to a significant other at home: No Do you presently have visiting nurse or other home services: No Alcohol intake: never Comment: Counts correct Patient Tobacco Use Status: Former Tobacco user Tobacco use type: Cigarette Years Smoked: 18 service: No Current occupational status: employed 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 Alert and oriented. Mood and affect appropriate. Follows and participates in conversation appropriately. Respiratory effort is unlabored. No cough. Able to transition from sit to stand unassisted. Ambulates with bilaterally normal heel strike and toe off. Neck Other: Lead Insertion Site: Lead insertion site looks clean, dry, intact. No pathological discharge, no swelling and no erythema. Lead site dressing was changed today in the clinic. Positive paresthesia at 65-70 on the left. Neck: Yes normal visual inspection, Yes no lymphadenopathy, Yes supple, Yes anterior neck swelling, Yes no JVD, No prominent supraclavicular fat pad and No prominent dorsocervical fat pad Back/Spine/Pelvis Cervical Spine: No collar present, cervical muscular tenderness, pain with cervical ROM (lateral rotations and extension), No cervical spasm, No Cervical spine tenderness and No step off deformity Thoracic/Lumbar Spine: thoracic and lumbar spine normal to inspection, pain with thoraco-lumbar ROM, thoraco-lumbar ROM limited, No thoracic spinal tenderness and lumbar spinal tenderness (L4-S1) Sacroiliac joints: bilaterally tender to palpation Results Reviewed Results Reviewed: MR CERVICAL SPINE WITHOUT CONTRAST 06/14/23 CLINICAL INFORMATION: Chronic neck pain with worsening radicular symptoms. COMPARISON: Cervical spine MRI 02/18/2016. TECHNIQUE: MRI of the cervical spine was obtained using routine sequences without contrast. FINDINGS: Straightening of the cervical lordosis. The vertebral body heights are maintained. There is moderate to severe disc volume loss at C4-C5 and C5-C6, progressed. Moderate disc volume loss at C3-C4 again noted. There are Modic type I endplate signal changes at C4-C5 and C5-C6. There is no additional bone marrow edema. There are no acute fractures. Craniocervical junction is unremarkable. Partially imaged intracranial compartment is unremarkable. Cervical arterial flow voids are maintained. Partially imaged multinodular thyroid gland is again noted which has been recently evaluated with thyroid ultrasound. C2-C3: A shallow disc protrusion mildly indents the ventral thecal sac. There is no foraminal stenosis. Findings are unchanged. C3-C4: Disc osteophyte mildly indents the ventral thecal sac. There is bilateral facet arthropathy. No significant central canal stenosis and no foraminal stenosis. C4-C5: A small central disc protrusion mildly indents the ventral thecal sac. Uncovertebral joint spurring and facet arthropathy result in worsening mild to moderate left-sided foraminal stenosis. C5-C6: Uncovertebral joint spurring and facet arthropathy result in worsening mild to moderate right-sided foraminal stenosis. No central canal and no left foraminal stenosis. Bilateral facet arthropathy. C6-C7: Slight annular disc bulge. Left greater then right facet arthropathy. No central canal stenosis. Mild foraminal encroachment bilaterally. C7-T1: Disc contour is normal. No central canal stenosis and no foraminal stenosis. IMPRESSION: - Multilevel cervical spondylosis. Spondylitic changes result in progressive mild to moderate left C4-C5 and progressive mild to moderate right C5-C6 foraminal stenosis. There is no severe central canal stenosis within the cervical spine. - Partially imaged multinodular thyroid gland is again noted which has been recently evaluated with thyroid ultrasound. Assessment & Plan Assessment & Plan (1) Cervical spondylosis: Code(s): M47.812 - Spondylosis without myelopathy or radiculopathy, cervical region Category: Medical (2) Chronic low back pain: Code(s): M54.50 - Low back pain, unspecified; G89.29 - Other chronic pain Category: Medical (3) Muscle spasms of neck: Code(s): M62.838 - Other muscle spasm Category: Medical (4) Chronic pain syndrome: Code(s): G89.4 - Chronic pain syndrome Category: Medical (5) Left shoulder pain: Code(s): M25.512 - Pain in left shoulder Category: Medical Plan The plan includes adjusting the stimulation settings to manage the neck pain more effectively, with the goal of reducing the pain level below 4-5/10. The patient is advised to continue with the current postoperative care routine, ensuring that the dressing remains intact and waterproof to prevent infection. Denies any untoward effects with previous Sprint PNS therapy. Dressing site was without any signs of infection or pathological discharge and dressing change was done today in the clinic. A follow-up appointment is scheduled for the next week to change the dressing and assess the progress of the pain management strategy and educated family on dressing changes and device care. Right C5 medial branch Sprint PNS trial is scheduled on 03/24/25. All questions and concerns have been answered and patient agreed with the treatment plan. Follow up Sprint dressing change and sooner as needed. Patient was informed and verbally consented to the use of an ambient scribe for clinic note documentation during this visit. Coding Level of Care Code Est Pt Level 3 (04319) Complex EM visit Add On G2211 Diagnoses Cervical spondylosis M47.812 Chronic low back pain M54.50; G89.29 Muscle spasms of neck M62.838 Chronic pain syndrome G89.4 Left shoulder pain M25.512
== END 2025-03-16 15:34 | disposition home or self-care (01) ==
LOC: HO.PMC 15:13
PROVIDERS: PCP Registered Nurse; Visit Provider Nurse Practitioner Family
DX: M47.812 Spondylosis without myelopathy or radiculopathy, cervical region (principal); M54.50 Low back pain, unspecified; G89.29 Other chronic pain; M62.838 Other muscle spasm; G89.4 Chronic pain syndrome; M25.512 Pain in left shoulder
CPT/HCPCS: 99213; G2211

== ENCOUNTER 2025-03-24 07:47 | Outpatient (AMB) | payer OTHER, SELFPAY ==
[2025-03-24 07:53] VITALS: BP 107/57; PULSE 55; RESP 16; O2SAT 100; BMI 23.2
--- NOTE | 2025-03-24 07:53 | MHC.OFFVIS ---
Vital Signs 03/24/25 07:53 03/24/25 08:43 Height 5 ft 3 in Weight 131 lb BMI 23.2 BP 107/57 L 105/66 Blood Pressure Location Lt brachial Lt brachial Position Sitting Sitting Respiration 16 16 Pulse 55 56 Pulse Source Pulse Oximeter Pulse Oximeter Pulse Oximetry (%) 100 100 Oxygen Delivery Method Room Air Room Air Intake Visit Reasons: Right C4 SPRINT PNS Allergies No Known Allergies (No Known Allergies*) Allergy (Verified 03/23/25 14:24) PFSH Medical History Cervical high risk HPV (human papillomavirus) test positive Fibromyalgia Elevated cholesterol Weight loss Karina's disease Non-toxic multinodular goiter Osteoarthritis of left hip Schatzki's ring Hiatal hernia Hx of migraines History of multinodular goiter IBS (irritable bowel syndrome) GERD (gastroesophageal reflux disease) Dysphagia Chronic pain syndrome Spondylosis, lumbar, with myelopathy Sacroiliitis Surgical History History of carpal tunnel release History of bilateral tubal ligation Hx of dilation and curettage Hx of arthroscopy of right knee History of esophagogastroduodenoscopy (EGD) Hx of colonoscopy History of cholecystectomy Family History Father Unknown family medical history Mother Arthritis Diverticulitis Gastritis Breast cancer Chronic asthma Adenomatous colon polyp HTN (hypertension) Maternal Grandmother Colon cancer Daughter Hypothyroid Daughter Traveling blood clot in leg Obesity Prediabetes Social History Household Members: Spouse Housing: House Are you a primary nanny caregiver to a significant other at home: No Do you presently have visiting nurse or other home services: No Alcohol intake: never Comment: Counts correct Patient Tobacco Use Status: Former Tobacco user Tobacco use type: Cigarette Years Smoked: 18 service: No Current occupational status: employed Current occupation: [employer]/Lt handed Female 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 History Menstrual Age of Menarche: 13 Physical Exam Vital Signs: Last Vital Signs Pulse 56 03/24/25 08:43 Resp 16 03/24/25 08:43 BP 105/66 03/24/25 08:43 Pulse Ox 100 03/24/25 08:43 Oxygen Delivery Method Room Air 03/24/25 08:43 BMI result Body Mass Index 23.2 Assessment & Plan Assessment & Plan (1) Cervical spondylosis: Code(s): M47.812 - Spondylosis without myelopathy or radiculopathy, cervical region Category: Medical Plan Percutaneous implantation of peripheral nerve stimulation Sprint system right C5 the risks, benefits and alternatives were discussed with the patient and informed consent was obtained, patient was placed in the prone position and padded to foster comfort. Time out was performed delineating correct site and side of the procedure , name and of the patient, patient participated in time out procedure. Theupper back and posterior neck of the patient was prepped with ChloraPrep and draped with sterile self adhesive utility towels. C-arm was brought over the operating field and clear picture of the C5 lamina on the right was delineated on the screen. The upper central portion of the lamina was chosen as a target of the needle tip insertion . After identifying and marking the intended target, the skin around the planned entry point and the subcutaneous tissues were injected with local anesthetic forming skin wheal.. A percutaneous sleeve and stimulating probe lead introduction system were assembled, inserted and advanced through the skin wheal to the point of interest under C-arm viewL right C5 lamina., the introducer needle was delivered to a location in proximity to the nerve. Multiple stimulation parameters were used to deliver stimulation to the nerve in concert with stimulating at multiple positions around the nerve. The nerve target acquisition was confirmed noting generation of in the corresponding to the nerve being stimulated. Various electrical parameter combinations were tested, and the lead location was adjusted (physically relocated) until the patient indicated overlapping the distribution of the patient?s typical region of pain. The stimulating probe was removed from the introducer and a percutaneous lead was guided through the needle and delivered to a location in similar proximity to the nerve. Final location was verified with electrical stimulation. The introducer needle was removed, and the exposed end of the percutaneous lead was attached to an external stimulator unit. At the end of the case various electrical parameter combinations were again tested until the patient indicated paresthesia or muscle tension overlapping the distribution of the patient?s typical region of pain. After confirming that lead impedance was in the normal range, the external unit was detached, the needle was removed, and the lead was anchored at the skin. The leads were threaded into the connector block and electrical continuity and desired patient response was confirmed. The connector block was attached to the external stimulator unit. The site was covered with a sterile occlusive dressing and a image was taken to document final placement. Upon completion of the procedure the patient was taken outside the OR where she recovered uneventfully she went home without immediate complications. Orders: Orders FL guidance in treatment room 03/24/25 M47.812 - Spondylosis without myelopathy or radiculopathy, cervical region Coding Level of Care Code Procedure Only Diagnoses Cervical spondylosis M47.812 Implantable Device Implantable Device Implantable Devices Qty Civil Engineer'S Aide Implant Date Expiration Date Analgesic PENS system 1 [employer] 03/10/25 Analgesic PENS system 1 SPR [employer] 03/24/25
[2025-03-24 08:43] VITALS: BP 105/66; PULSE 56; RESP 16; O2SAT 100
== END 2025-03-24 09:01 | disposition home or self-care (01) ==
LOC: HO.PMCPRC 07:47
PROVIDERS: PCP Registered Nurse; Visit Provider Anesthesiology
DX: M47.812 Spondylosis without myelopathy or radiculopathy, cervical region (principal)
CPT/HCPCS: 64555; 64590; 64636

== ENCOUNTER 2025-03-24 14:16 | Outpatient (REF) | payer OTHER, SELFPAY ==
--- NOTE | ~2025-03-24 | MM_ITS ---
EXAMINATION: MM SCREENING DIGITAL BREAST TOMOSYNTHESIS, BILATERAL CLINICAL INFORMATION: Screening. Asymptomatic. Right breast stereotactic needle core biopsy on August 28, 2012 (top hat shape clip); pathology is benign, in the area of sclerosing adenosis. COMPARISON: Comparison made to multiple prior, most recent March 16, 2023, and most remote September 21, 2016. TECHNIQUE: Digital breast tomosynthesis is performed in mediolateral oblique and craniocaudal views along with computer-aided detection (CAD). Synthesized 2D images are generated from the tomosynthesis. FINDINGS: BREAST COMPOSITION: The breasts are heterogeneously dense, which may obscure small masses. RIGHT BREAST: Tissue marker from previous needle core biopsy. No significant masses, suspicious calcifications or other abnormalities are seen. LEFT BREAST: No significant masses, suspicious calcifications or other abnormalities are seen. MM/MM tomosynthesis screening BI IMPRESSION: BILATERAL BREASTS: Benign, no mammographic evidence of malignancy. Normal interval follow-up is recommended in 12 months. ASSESSMENT: BI-RADS: Category 2: Benign RECOMMENDATION: Routine annual mammography screening. FOLLOW-UP: 1 year F/U This examination should not preclude the clinical evaluation of a suspicious palpable abnormality. This patient's information was entered into a reminder system with a target due date for their next mammogram. Electronically signed by: Juwan Wilson MD 03/25/2025 07:17 PM [facility]
--- OUTSIDE RECORDS SUMMARY | 2025-03-24 18:10 | XMS_ITS | Encounter Summary ---
Author Organization [employer] Address [address] [facility] [place], [place] [address] Care Team Providers Care Core Stacker Name Role Phone [facility] Primary Care Provider [phone] Encounter Details Date Type Department Care Team ([facility] st Contact Info) Description 05/16/2022 Telephone [facility] MEDICINE [address] [place], [place] [phone] [facility] 230 [place], [place] [phone] Social History Tobacco Use Types Packs/Day Years [...] on filedocumented in this encounter Care Teams Core Stacker Relationship Specialty Start Date End Date Tierney Goncalves FNP [address] [place] [id number] PCP - General Family Medicine 12/27/21 documented as of this encounter
--- OUTSIDE RECORDS SUMMARY | 2025-03-24 18:10 | XMS_ITS | Encounter Summary ---
Author Organization [employer] Address [address] [facility] 7t [place] [address] Care Team Providers Care Skid Worker Name Role Phone [facility] Primary Care Provider [phone] Reason for Visit * Reason Comments Med Refill Encounter Details Date Type Department Care Team ([facility] st Contact Info) Description 08/19/2023 Refill [facility] MEDICINE [address] [place] [address] [facility] 230 [place] [address] Fibromyalgia Social History Tobacco Use Types Packs/Day [...] documented as of this encounter Care Teams Skid Worker Relationship Specialty Start Date End Date Tierney Goncalves FNP [address] [place] [address] PCP - General Family Medicine 12/27/21 documented as of this encounter
--- OUTSIDE RECORDS SUMMARY | 2025-03-24 18:10 | XMS_ITS | Encounter Summary ---
Author Organization [facility] Address [address] [place] [address] [place] [address] Phone Care Team Providers Care Sales Service Representative Name Role Phone Tierney Goncalves Primary Care Provider [phone] Encounter Details Date Type Department Care Team (Late st Contact Info) Description 07/31/2023 Procedure Pass [facility] Endoscopy Admitting Dept Virtual Department 30 [place] [address] Social History Tobacco Use Types Packs/Day Years [...] on filedocumented in this encounter Care Teams Sales Service Representative Relationship Specialty Start Date End Date Tierney Goncalves FNP 230 [place] [address] PCP - General Nurse Practitioner 07/31/23 documented as of this encounter Additional Source Comments The information contained in this document represents components of the legal health record. It is not the complete legal health record.[facility]
--- OUTSIDE RECORDS SUMMARY | 2025-03-24 18:10 | XMS_ITS | Encounter Summary ---
Author Organization [employer] Address [address] 7[address] [place] [address] Care Team Providers Care Pneumatic Tube Fitter Name Role Phone Tierney Goncalves CHIEF COMPRESSOR STATION ENGINEER Primary Care Provider [phone] Encounter Details Date Type Department Care Team (Late st Contact Info) Description 08/05/2024 Orders Only [facility] MED [facility] PEDS [address] [place] [address] ProviderEvon MD Social History Tobacco Use Types [...] documented as of this encounter Care Teams Pneumatic Tube Fitter Relationship Specialty Start Date End Date Tierney Goncalves FNP [address] [place] [address] PCP - General Family Medicine 12/27/21 documented as of this encounter
--- OUTSIDE RECORDS SUMMARY | 2025-03-24 18:10 | XMS_ITS | Encounter Summary ---
Author Organization [employer] Address [address] [facility] [address] [place] [address] Care Team Providers Care Computational Linguist Name Role Phone [facility] Primary Care Provider [phone] Reason for Visit * Reason Comments Med Refill Encounter Details Date Type Department Care Team ([facility] st Contact Info) Description 07/21/2022 Refill [facility] MEDICINE 230 [place] [address] [facility] 230 [place] [address] Joint pain in both hands Social History [...] documented as of this encounter Care Teams Computational Linguist Relationship Specialty Start Date End Date Tierney Goncalves FNP [address] [place] [address] PCP - General Family Medicine 12/27/21 documented as of this encounter
--- OUTSIDE RECORDS SUMMARY | 2025-03-24 18:10 | XMS_ITS | Encounter Summary ---
Author Organization [facility] [employer] Address [address] 7t [place] [address] Care Team Providers Care Analyst Business Analysis Name Role Phone Tierney Goncalves OPERATIONS PLANNER Primary Care Provider [phone] Encounter Details Date Type Department Care Team (Late st Contact Info) Description 08/08/2023 Orders Only [facility] MEDICINE [address] [place] [address] ProviderEvon MD Social History Tobacco Use Types [...] documented as of this encounter Care Teams Analyst Business Analysis Relationship Specialty Start Date End Date Tierney Goncalves FNP [address] [place] [address] PCP - General Family Medicine 12/27/21 documented as of this encounter
--- OUTSIDE RECORDS SUMMARY | 2025-03-24 18:10 | XMS_ITS | Encounter Summary ---
Author Organization [employer] Address [address] [facility] 7t [place] [address] Care Team Providers Care Oxidized Finish Plater Name Role Phone [facility] Primary Care Provider [phone] Reason for Visit * Reason Onset Date Comments Prior Authorization 05/16/2024 Encounter Details Date Type Department Care Team (Late st Contact Info) Description 05/16/2024 Telephone [facility]EDS [address] [place] [address] [facility] [address] [place] [address] Prior Authorization Social History Tobacco Use Types [...] documented as of this encounter Care Teams Oxidized Finish Plater Relationship Specialty Start Date End Date Tierney Goncalves FNP [address] [place] [phone] PCP - General Family Medicine 12/27/21 documented as of this encounter
--- OUTSIDE RECORDS SUMMARY | 2025-03-24 18:10 | XMS_ITS | Encounter Summary ---
Author Organization [employer] Address [address] [facility] 7t [place] [address] Care Team Providers Care Title I Assistant Name Role Phone [facility] Primary Care Provider [phone] Reason for Visit * Reason Comments Med Refill Encounter Details Date Type Department Care Team ([facility] st Contact Info) Description 03/13/2023 Refill [facility] MEDICINE 230 [place] [address] [facility] 230 [place] [address] Social History Tobacco Use Types Packs/Day Years [...] documented as of this encounter Care Teams Title I Assistant Relationship Specialty Start Date End Date Tierney Goncalves FNP [address] [place] [address] PCP - General Family Medicine 12/27/21 documented as of this encounter
--- OUTSIDE RECORDS SUMMARY | 2025-03-24 18:10 | XMS_ITS | Encounter Summary ---
Author Organization [employer] Address [address] [facility] 7t [place] [address] Care Team Providers Care Mechanical Process Engineer Name Role Phone [facility] Primary Care Provider [phone] Reason for Visit * Reason Comments Med Refill Encounter Details Date Type Department Care Team ([facility] st Contact Info) Description 01/12/2025 Refill [facility] MEDICINE 230 [place] [address] [facility] 230 [place] [address] Migraine without aura, not refractory Social History [...] as of this encounter Care Teams Mechanical Process Engineer Relationship Specialty Start Date End Date Tierney Goncalves FNP [address] [place] [address] PCP - General Family Medicine 12/27/21 documented as of this encounter
--- OUTSIDE RECORDS SUMMARY | 2025-03-24 18:10 | XMS_ITS | Encounter Summary ---
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
--- OUTSIDE RECORDS SUMMARY | 2025-03-24 18:10 | XMS_ITS | Encounter Summary ---
Author Organization [employer] Address [address] [facility] 7t [place] [address] Care Team Providers Care Glue Specialty Supervisor Name Role Phone Ivanna [facility] Primary Care Provider [phone] Reason for Visit * Reason Onset Date Comments ER Follow-up 08/05/2024 Nurse Triage 08/05/2024 Encounter Details Date Type Department Care Team (Late st Contact Info) Description 08/05/2024 Telephone [facility] MEDICINE [address] [place] [address] [place] [facility] [address] [place], [place] [id number] ER Follow-up; Nurse Triage Social History Tobacco [...] 08/05/2024 10:11 AM EDT Date: 08/04/24 Hospital: [facility] Seen for: elevated liver function Symptomatic Yes, can't really eat due to feeling nauseous Pt. States was told needs liver function testing within 48 hours. Called pt. She states she started feeling sick to her stomach x 2 days ago. Pt. Had vomiting ,diarrhea, and chills. Pt went to [facility] ED on 08/04/24. Provider in ED stated [...] pt. Chart but I do not see [facility] ED note in chart. Will send request for [facility] ED report from 08/04/24 to be put [...] For 08/06/24 at 930am with Harika Mensah EXHIBITION ORGANISER for [facility] ED FU and discussion to repeat labs [...] ED visit on : Date: 08/04/24 Hospital: [facility] Seen for: elevated liver function Symptomatic Yes, [...] documented as of this encounter Care Teams Glue Specialty Supervisor Relationship Specialty Start Date End Date Tierney Goncalves FNP [address] [place] [phone] PCP - General Family Medicine 12/27/21 documented as of this encounter
--- OUTSIDE RECORDS SUMMARY | 2025-03-24 18:10 | XMS_ITS | Encounter Summary ---
Author Organization [facility] Address [address] [place] [phone] Phone Care Team Providers Care Bioprocess Engineer Name Role Phone Pcp, Unknown Primary Care Provider Unavailabl e Tierney Goncalves Primary Care Provider [phone] Encounter Details Date Type Department Care Team (Late st Contact Info) Description 07/24/2023 Procedure Pass [facility] Admitting Dept Virtual Department [address] [place] [address] Social History Tobacco Use Types Packs/Day Years [...] on filedocumented in this encounter Care Teams Bioprocess Engineer Relationship Specialty Start Date End Date Pcp, Unknown PCP - General 04/17/23 07/30/23 Tierney Goncalves FNP [address] [place] [address] PCP - General Nurse Practitioner 07/31/23 documented as of this encounter Additional Source Comments The information contained in this document represents components of the legal health record. It is not the complete legal health record.[facility]
--- OUTSIDE RECORDS SUMMARY | 2025-03-24 18:10 | XMS_ITS | Clinical Summary ---
Author Organization [employer] Address [address] [facility] 7t [place] [address] Care Team Providers Care Teacher Home Therapy Name Role Phone Tierney Goncalves REIMBURSEMENT COUNSELOR Primary Care Provider [phone] Allergies No known active allergies Medications * [...] (12/12/2022): Negative EMB 09/01/22 Followed by [facility] [employer] CONSULTANT Mixed hyperlipidemia 05/26/2022 Overview (05/26/2022): 03/2022 ASCVD 2.8% Diet controlled Healthcare maintenance 04/02/2022 Overview (08/15/2023): Mammo: 02/2023 bi-rads 2 Pap: 05/2021 though [facility] [employer], NIL HPV +'colpo PADMINI 1, repeat co-testing due 09/2023 C-scope: 2017, has upcoming appointment BMD: Routine age 67 HCV Screen: Neg 2016 HIV Screen: Neg 2015 Immunizations: declines COVID booster today. Otherwise UTD Screening Labs: A1c-4.8, 2020 Assessment & Plan (04/02/2022 1:22 PM EST): Mammo: 02/2022 bi-rads 2, repeat 02/2023 Pap: 05/2021 though [facility] [employer] CONSULTANT, NIL HPV +, pt does [...] and early satiety - Followed by [facility] GI with previously benign EGD w/ esophageal spasm, negative gastric emptying study, neg. H.pylori biopsy Osteoarthritis of facet joint of lumbar spine Overview (05/18/2022): - Hx of sacroilitis - Previously seen by [facility] ortho and pain mngmt; has received numerous steroid injections with minimal sx improvement. Has tried PT for various concerns without improvement. - Is not currently followed by ortho or pain mngmt Non-toxic multinodular goiter 07/20/2017 Overview (05/18/2022): Benign multi-nodular goiter followed by [facility] endo. Per lats visit note 08/2021, patient to reconsider thyroidectomy if sx of dysphagia worsen; has follow up in 6 months - Per chart review pt was referred to [place] for possible thyroidectomy however pt does not have transportation. Insurance barriers limit more local access. -FNA of left mid pole nodule on 04/20/16 consistent with benign follicular nodule. 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 Per visit note plan to monitor q. 6 months and consider biopsy if WBC count < 2 or development of B sx Diffuse spasm of esophagus 05/17/2016 Fibromyalgia 04/28/2016 Overview (01/02/2023): Duloxetine 40mg daily Amitriptyline 10mg at bedtime Chronic back pain, shoulder pain Hx of sacroilitis Previously seen by [facility] ortho and pain mngmt; has received numerous [...] Department Care Team Description 01/23/2025 Orders Only [facility] External [facility], [facility] 01/22/2025 Refill [facility] [address] [place] [address] Tierney Goncalves FNP Migraine without aura, not refractory 01/12/2025 Refill [facility] MEDICINE [address] [place] [address] Tierney Goncalves FNP Migraine without aura, not [...] of 2 - Risk 2-dose series) 1981 RSV Patients and Patients Aged 60 years or older (1 - Risk 50-74 years 1-dose series) 01/27/2012 Dental X-Ray: Bitewings 05/07/2016 05/06/19 16, 11/02/2014, 08/07/2013 Dental Oral Exam 07/06/2023 01/04/2023, 03/2021, 05/06/2015, [...] PM EDT Narrative 01/23/2025 2:55 PM EDT [address] [address] Ultrasound Report Signed Patient: Adela Flynn MR#: [id number] : 1960 Acct:[id number] Age/Sex: 64 / F ADM Date: 01/23/25 Loc: HO.US Attending Dr: Flaco Chatterjee MD Ordering Physician: Flaco Chatterjee MD Date of Service: 01/23/25 Procedure(s): US pelvic and transvaginal Accession Number(s): [id number] [facility] Flaco Chatterjee MD Reason for Exam: [...] 01/23/25 1452 DD/ 1418 TD/TT: 01/23/25 1430 [employer] Service Technician: Procedure Note Donotuseinterpreter, Image - 01/23/2025 [place] [address] Ultrasound Report Signed Patient: Adela Flynn R#: [id number] : 1960cct:[id number] Age/Sex: 64 / FADM Date: 01/23/25 Loc: HO.US Attending Dr: Flaco Chatterjee MD Ordering Physician: Flaco Chatterjee MD Date of Service: 01/23/25 Procedure(s): US pelvic and transvaginal Accession Number(s): [id number] cc: [facility]; Flaco Chatterjee MD [...] 01/23/25 1452 DD/ 1418 TD/TT: 01/23/25 1430 [employer] Service Technician: us [facility] External Provider IMG US PROCEDURES Final Result * Hepatitis Panel, General (08/04/2024 7:29 AM EDT) Hepatitis A IgM Nonreactive Nonreactive [facility] Comment:IgM antibodies to SERRANO V not detected; does not exclude earlyacute or recovered HAV infection. ~Hepatitis B Surface Antibody REACTIVE Nonreactive [facility] Comment:REACTIVE: > 11.99 mI U/mL Hepatitis B Core Antibody Nonreactive Nonreactive [facility] Hepatitis C Antibody Nonreactive Nonreactive [facility] Comment:Antibodies to HCV no t detected; does not exclude early acuteHCV infection. Hepatitis B Surface Ag Negative Negative [facility] 08/04/2024 7:29 AM EDT 08/04/2024 7:34 AM EDT us Generic External Data Provider LAB BLOOD ORDERAB LES Final Result [facility] [address] [place] [phone] * BI Mammogram Screening Tomosynthesis Bilateral (03/17/2024 2:15 PM EST) Anatomical Region Laterality Modality Breast Bilateral Mammography 03/17/2024 2:15 PM EST Narrative 03/25/2024 3:23 PM EST [address] [place] [address] Mammography Report Signed Patient: Adela Flynn MR#: [id number] : 1960 Acct:[id number] Age/Sex: 64 / F ADM Date: 03/17/24 Loc: HO.MAMMO Attending Dr: Tierney Goncalves REIMBURSEMENT COUNSELOR Ordering Physician: Tierney Goncalves REIMBURSEMENT COUNSELOR Results: 2Beni gn Findings Date of Service: 03/17/24 Follow Up: 1 Year From Orig inal Mammogram Procedure(s): MM tomosynthesis screening BI Accession Number(s): [id number] cc: Tierney Goncalves REIMBURSEMENT COUNSELOR EXAMINATION: MM SCREENING DIGITAL BREAST TOMOSYNTHESIS, BILATERAL [...] by: Emma Cerda DO 03/25/2024 03:20 PM [facility] Dictated By: Emma Cerda DO Signed By: <Electronically signed by Emma Cerda DO in OV> 03/25/24 1520 DD/ 1415 TD/TT: 03/17/24 1430 [employer] Service Technician: Procedure Note Donotuseinterpreter, Image - 03/25/2024 Robin [facility] [address] [place], [place] [address] Mammography Report Signed Patient: Adela Flynn R#: [id number] : 2Acct:[id number] Age/Sex: 64 / FADM Date: 03/17/24 Loc: MAMMO Attending Dr: Tierney Goncalves REIMBURSEMENT COUNSELOR Ordering Physician: Tierney Goncalves FNPResults: 2Beni gn Findings Date of Service: 03/17/24Follow Up: 1 Year From Orig ina Mammogram Procedure(s): MM tomosynthesis screening BI Accession Number(s): [id number] cc: Tierney Goncalves REIMBURSEMENT COUNSELOR EXAMINATION: MM SCREENING DIGITAL BREAST TOMOSYNTHESIS, BILATERAL [...] 03/25/24 1520 DD/ 1415 TD/TT: 03/17/24 1430 [employer] Service Technician: [facility] REIMBURSEMENT COUNSELOR IMG BI PROCEDURES Final Resul t * [...] Most Recently Relevant to Health Maintenance [place] [place] [address] , [address] [place] [address] DENTAL - HSN PARTIAL (MEDICAID) Care Teams Teacher Home Therapy Relationship Specialty Start Date End Date Tierney Goncalves FNP [address] [place] [phone] PCP - General Family Medicine 12/27/21
--- OUTSIDE RECORDS SUMMARY | 2025-03-24 18:10 | XMS_ITS | Clinical Summary ---
Author Organization [facility] Address [address] [address] Phone Care Team Providers Care Continuous Process Rotary Drum Tanner Name Role Phone Tierney Goncalves SWETA Primary Care Provider [phone] Social History Tobacco Use Types Packs/Day Years [...] Insurance [facility] Care Teams Continuous Process Rotary Drum Tanner Relationship Specialty Start Date End Date Tierney Goncalves FNP [address] [place] [phone] PCP - General Nurse Practitioner 07/31/23 Additional Source Comments The information contained in this document represents components of the legal health record. It is not the complete legal health record.[facility]
--- OUTSIDE RECORDS SUMMARY | 2025-03-24 18:10 | XMS_ITS | Encounter Summary ---
Author Organization [employer] Address [address] [facility] [address] 7t [place] [address] Care Team Providers Care Chainstitch Tunnel Elastic Operator Name Role Phone Tierney Goncalves PRE SALES ARCHITECT Primary Care Provider [phone] Encounter Details Date Type Department Care Team (Late st Contact Info) Description 11/13/2023 Orders Only [facility] MEDICINE [address] [place] [address] ProviderEvon MD Social History Tobacco Use Types [...] documented as of this encounter Care Teams Chainstitch Tunnel Elastic Operator Relationship Specialty Start Date End Date Tierney Goncalves FNP [address] [place] [address] PCP - General Family Medicine 12/27/21 documented as of this encounter
--- OUTSIDE RECORDS SUMMARY | 2025-03-24 18:10 | XMS_ITS | Encounter Summary ---
Author Organization [employer] Address [address] [facility] 7t [place] [address] Care Team Providers Care Recycle Coordinator Name Role Phone Tierney Goncalves BLOCK HAND Primary Care Provider [phone] Reason for Visit * Reason Onset Date Comments case clarification 07/31/2023 Encounter Details Date Type Department Care Team ([facility] st Contact Info) Description 07/31/2023 Telephone [facility] ADULT DENTAL [address] [place] [address] Camron Rios DDS [address] [place], [place] [phone] case clarification Social History Tobacco Use Types [...] documented as of this encounter Care Teams Recycle Coordinator Relationship Specialty Start Date End Date Tierney Goncalves FNP [address] [place] [phone] PCP - General Family Medicine 12/27/21 documented as of this encounter
== END 2025-03-24 14:17 | disposition home or self-care (01) ==
LOC: HO.MAMMO 14:16
PROVIDERS: PCP Registered Nurse; Visit Provider Registered Nurse
DX: Z12.31 Encounter for screening mammogram for malignant neoplasm of breast (principal); N60.21 Fibroadenosis of right breast; M47.812 Spondylosis without myelopathy or radiculopathy, cervical region
CPT/HCPCS: 64555; 64590; 64635; 64636; 77063; 77067; C1778; J2003

== ENCOUNTER → 2025-03-24 14:30 | Outpatient (BNV) | payer OTHER, SELFPAY | PROVIDERS: PCP Registered Nurse; Visit Provider Radiology Body Imaging | DX: Z12.31 Encounter for screening mammogram for malignant neoplasm of breast (principal) | CPT/HCPCS: 77063; 77067 ==

== ENCOUNTER 2025-03-31 10:55 | Outpatient (AMB) | payer OTHER, SELFPAY ==
--- NOTE | 2025-03-31 10:57 | MHC.OFFVIS ---
Vital Signs 03/31/25 11:01 Height 5 ft 3 in Weight 130 lb BMI 23.0 BP 109/57 L Blood Pressure Location Rt brachial Position Sitting Pulse 56 Pulse Source Pulse Oximeter Pulse Oximetry (%) 98 Oxygen Delivery Method Room Air Intake Visit Reasons: S/P Right C4 SPRINT PNS Intake Note: Pain today 5/10 Rubber And Pounder Required: No Accompanied by: Self / Same As Patient Allergies No Known Allergies (No Known Allergies*) Allergy (Verified 03/31/25 11:03) HPI Comments Details: The patient is a 65-year-old female presenting with one week status post right C5 Sprint PNS placement on 03/24/[address] Azul. She also had left side Sprint placement on 03/10/25. The patient reports persistent right sided neck pain with a minimum pain level of 5/10 since the procedure. The patient reports that the left side feels good, but there is no stimulation felt on the right side, only pressure and pain, which has led to two sleepless nights. Current stimulation settings are 60 for left and 62 for right. Denies any untoward effects with Sprint PNS therapy. We increased stimulation to 75 and decreased left side to 58 with good tolerance during today's visit and positive paresthesia for both sides. The dressing was removed today. Lead insertion sites are clean, dry, intact, no redness, no swelling, no pathological discharge. Insertion sites were cleansed with Chloraprep, applied Bacitracin and covered with Sprint Tegaderm film and gauze dressing. Denies any recent cough, cold, infection, fever or any significant changes in medical history since last office visit. The patient's daughter, who is a CLIENT RELATIONS REPRESENTATIVE and AUTOMATIC TELLER MACHINE SERVICER, is comfortable with Sprint device care and has been instructed on how to perform patient's dressing changes at home. Past Procedures: 03/24/25: Right C5 medial branch Sprint PNS placement-50% ongoing pain relief 03/10/25: Left C5 medial branch Sprint PNS placement-60% ongoing pain relief 09/12/24: Right diagnostic femoral nerve block under sedation-80% pain relief for 24 hours 08/26/24: Bilateral Diagnostic C4-C5-C6 MBB-80-90% pain relief for 6 hours [facility] Medical History Cervical high risk HPV (human papillomavirus) test positive Fibromyalgia Elevated cholesterol Weight loss Karina's disease Non-toxic multinodular goiter Osteoarthritis of left hip Schatzki's ring Hiatal hernia Hx of migraines History of multinodular goiter IBS (irritable bowel syndrome) GERD (gastroesophageal reflux disease) Dysphagia Chronic pain syndrome Spondylosis, lumbar, with myelopathy Sacroiliitis Surgical History History of carpal tunnel release History of bilateral tubal ligation Hx of dilation and curettage Hx of arthroscopy of right knee History of esophagogastroduodenoscopy (EGD) Hx of colonoscopy History of cholecystectomy Family History Father Unknown family medical history Mother Arthritis Diverticulitis Gastritis Breast cancer Chronic asthma Adenomatous colon polyp HTN (hypertension) Maternal Grandmother Colon cancer Daughter Hypothyroid Daughter Traveling blood clot in leg Obesity Prediabetes Social History Household Members: Spouse Housing: House Are you a primary family member caretaker to a significant other at home: No Do you presently have visiting nurse or other home services: No Alcohol intake: never Comment: Counts correct Patient Tobacco Use Status: Former Tobacco user Tobacco use type: Cigarette Years Smoked: 20 service: No Current occupational status: employed 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 Alert and oriented. Mood and affect appropriate. Follows and participates in conversation appropriately. Respiratory effort is unlabored. No cough. Able to transition from sit to stand unassisted. Ambulates with bilaterally normal heel strike and toe off. Neck Other: Lead Insertion Site: Lead insertion sites are clean, dry, intact. No pathological discharge, no swelling and no erythema. Lead site dressings were changed today in the clinic. Positive paresthesia at 58 on the left, 75 on the right. Results Reviewed Results Reviewed: MR CERVICAL SPINE WITHOUT CONTRAST 06/14/23 CLINICAL INFORMATION: Chronic neck pain with worsening radicular symptoms. COMPARISON: Cervical spine MRI 02/18/2016. TECHNIQUE: MRI of the cervical spine was obtained using routine sequences without contrast. FINDINGS: Straightening of the cervical lordosis. The vertebral body heights are maintained. There is moderate to severe disc volume loss at C4-C5 and C5-C6, progressed. Moderate disc volume loss at C3-C4 again noted. There are Modic type I endplate signal changes at C4-C5 and C5-C6. There is no additional bone marrow edema. There are no acute fractures. Craniocervical junction is unremarkable. Partially imaged intracranial compartment is unremarkable. Cervical arterial flow voids are maintained. Partially imaged multinodular thyroid gland is again noted which has been recently evaluated with thyroid ultrasound. C2-C3: A shallow disc protrusion mildly indents the ventral thecal sac. There is no foraminal stenosis. Findings are unchanged. C3-C4: Disc osteophyte mildly indents the ventral thecal sac. There is bilateral facet arthropathy. No significant central canal stenosis and no foraminal stenosis. C4-C5: A small central disc protrusion mildly indents the ventral thecal sac. Uncovertebral joint spurring and facet arthropathy result in worsening mild to moderate left-sided foraminal stenosis. C5-C6: Uncovertebral joint spurring and facet arthropathy result in worsening mild to moderate right-sided foraminal stenosis. No central canal and no left foraminal stenosis. Bilateral facet arthropathy. C6-C7: Slight annular disc bulge. Left greater then right facet arthropathy. No central canal stenosis. Mild foraminal encroachment bilaterally. C7-T1: Disc contour is normal. No central canal stenosis and no foraminal stenosis. IMPRESSION: - Multilevel cervical spondylosis. Spondylitic changes result in progressive mild to moderate left C4-C5 and progressive mild to moderate right C5-C6 foraminal stenosis. There is no severe central canal stenosis within the cervical spine. - Partially imaged multinodular thyroid gland is again noted which has been recently evaluated with thyroid ultrasound. Assessment & Plan Assessment & Plan (1) Cervical spondylosis: Code(s): M47.812 - Spondylosis without myelopathy or radiculopathy, cervical region Category: Medical (2) Left shoulder pain: Code(s): M25.512 - Pain in left shoulder Category: Medical (3) Osteoarthritis of left shoulder: Code(s): M19.012 - Primary osteoarthritis, left shoulder Category: Medical (4) Muscle spasms of neck: Code(s): M62.838 - Other muscle spasm Category: Medical (5) Chronic pain syndrome: Code(s): G89.4 - Chronic pain syndrome Category: Medical Plan The bilateral Sprint PNS device settings were adjusted today. The left side stimulation was turned off to allow for proper adjustment of the right side, which was then set to 75. Subsequently, the left side stimulation was readjusted to 58, a level the patient found tolerable. The patient is advised to monitor these new settings at home and continue adjustment as needed. A dressing change was performed for both insertion sites. The patient's daughter, a CLIENT RELATIONS REPRESENTATIVE, will manage subsequent dressing changes at home. The patient also has access to a regular contact for the Sprint device hospital sales representative if issues arise. The patient will follow up with office staff to reschedule the stimulator removal appointment currently scheduled for May 19. All questions and concerns have been answered and patient agreed with the treatment plan. Follow up as needed. Patient was informed and verbally consented to the use of an ambient scribe for clinic note documentation during this visit. Coding Level of Care Code Est Pt Level 3 (20012) Complex visit Add On G2211 Diagnoses Cervical spondylosis M47.812 Left shoulder pain M25.512 Osteoarthritis of left shoulder M19.012 Muscle spasms of neck M62.838 Chronic pain syndrome G89.4
[2025-03-31 11:01] VITALS: BP 109/57; PULSE 56; O2SAT 98; BMI 23.0
== END 2025-03-31 11:37 | disposition home or self-care (01) ==
LOC: HO.PMC 10:56
PROVIDERS: PCP Registered Nurse; Visit Provider Nurse Practitioner Family
DX: M47.812 Spondylosis without myelopathy or radiculopathy, cervical region (principal); M25.512 Pain in left shoulder; M19.012 Primary osteoarthritis, left shoulder; M62.838 Other muscle spasm; G89.4 Chronic pain syndrome
CPT/HCPCS: 99213; G2211

== ENCOUNTER 2025-04-02 07:46 | Outpatient (REF) | payer OTHER, SELFPAY | END 2025-04-02 07:47 | disposition home or self-care (01) | LOC: HO.LNP 07:46 | PROVIDERS: PCP Registered Nurse; Visit Provider Obstetrics & Gynecology | DX: Z01.419 Encounter for gynecological examination (general) (routine) without abnormal findings (principal); N87.0 Mild cervical dysplasia; B97.7 Papillomavirus as the cause of diseases classified elsewhere; Z98.51 Tubal ligation status | CPT/HCPCS: 87626; 88175 ==

== ENCOUNTER 2025-04-02 07:46 | Outpatient (AMB) | payer OTHER, SELFPAY ==
--- OUTSIDE RECORDS SUMMARY | 2025-04-02 07:49 | XMS_ITS | Encounter Summary ---
Author Organization [employer] Address 75 [facility] 7t [place] [address] Care Team Providers Care Station Jailer Name Role Phone [facility] Primary Care Provider [phone] Reason for Visit * Reason Comments Med Refill Encounter Details Date Type Department Care Team ([facility] st Contact Info) Description 08/19/2023 Refill [facility] MEDICINE [address] [place], [place] [phone] [facility] 230 [place] [address] Fibromyalgia Social History Tobacco Use Types Packs/Day [...] documented as of this encounter Care Teams Station Jailer Relationship Specialty Start Date End Date Tierney Goncalves FNP [address] [place] [address] PCP - General Family Medicine 12/27/21 documented as of this encounter
--- OUTSIDE RECORDS SUMMARY | 2025-04-02 07:49 | XMS_ITS | Encounter Summary ---
Author Organization [employer] Address [address] [facility] [address] 7t [place] [address] Care Team Providers Care Smoke And Flame Specialist Name Role Phone Tierney Goncalves RN MED SURG Primary Care Provider Encounter Details Date Type Department Care Team ([facility] st Contact Info) Description 09/07/2023 Telephone C ADULT DENTAL 230 [place], [place] [phone] Camron Rios DDS [address] [place], [place] [phone] Social History Tobacco Use Types Packs/Day Years [...] EDT Patient calling to make apt to order picker parcles documented in this encounter Plan of Treatment Not on file documented as of this encounter Visit Diagnoses Not on filedocumented in this encounter Additional Health Concerns Assessment Noted Time PHQ-9 Depression Total Score: 0 05/16/19 24 3:22 PM EST documented as of this encounter Care Teams Smoke And Flame Specialist Relationship Specialty Start Date End Date Tierney Goncalves FNP [address] [place] [address] PCP - General Family Medicine 12/27/21 documented as of this encounter
--- OUTSIDE RECORDS SUMMARY | 2025-04-02 07:50 | XMS_ITS | Encounter Summary ---
Author Organization [employer] Address 75 [facility] 7t [place] [address] Care Team Providers Care Senior Gl Accountant Name Role Phone Ivanna [facility] Primary Care Provider [phone] Reason for Visit * Reason Onset Date Comments ER Follow-up 08/05/2024 Nurse Triage 08/05/2024 Encounter Details Date Type Department Care Team (Late st Contact Info) Description 08/05/2024 Telephone [facility] MEDICINE 230 [place] [address] [place]se [facility] [address] [place], [place] [phone] ER Follow-up; Nurse Triage Social History Tobacco [...] 08/05/2024 10:11 AM EDT Date: 08/04/24 Hospital: [facility] Seen for: elevated liver function Symptomatic Yes, can't really eat due to feeling nauseous Pt. States was told needs liver function testing within 48 hours. Called pt. She states she started feeling sick to her stomach x 2 days ago. Pt. Had vomiting ,diarrhea, and chills. Pt went to [facility] ED on 08/04/24. Provider in [...] pt. Chart but I do not see [facility] ED note in chart. Will send request for [facility] ED report from 08/04/24 to [...] For 08/06/24 at 930am with Harika Mensah PHYSICAL DIRECTOR for [facility] ED FU and discussion to [...] ED visit on : Date: 08/04/24 Hospital: [facility] Seen for: elevated liver function [...] as of this encounter Care Teams Senior Gl Accountant Relationship Specialty Start Date End Date Tierney Goncalves FNP [address] [place] [address] PCP - General Family Medicine 12/27/21 documented as of this encounter
--- OUTSIDE RECORDS SUMMARY | 2025-04-02 07:50 | XMS_ITS | Encounter Summary ---
Author Organization [employer] Address [address] [facility] [address] 7t [place] [address] Care Team Providers Care Gambling Dealer Name Role Phone Tierney Goncalves VALET MANAGER Primary Care Provider Encounter Details Date Type Department Care Team (Late st Contact Info) Description 08/05/2024 Orders Only [facility] MED & PEDS [address] [place] [address] ProviderEvon MD Social History Tobacco Use Types [...] documented as of this encounter Care Teams Gambling Dealer Relationship Specialty Start Date End Date Tierney Goncalves FNP [address] [place] [address] PCP - General Family Medicine 12/27/21 documented as of this encounter
--- OUTSIDE RECORDS SUMMARY | 2025-04-02 07:50 | XMS_ITS | Encounter Summary ---
Author Organization [employer] Address 75 [facility] 7t [place] [address] Care Team Providers Care Civil Process Server Name Role Phone [facility] Primary Care Provider [phone] Reason for Visit * Reason Comments Med Refill Encounter Details Date Type Department Care Team ([facility] st Contact Info) Description 01/12/2025 Refill [facility] MEDICINE 230 [place] [address] [facility] 230 [place] [address] Migraine without aura, not refractory Social History [...] documented as of this encounter Care Teams Civil Process Server Relationship Specialty Start Date End Date Tierney Gnocalves FNP 230 [place] [address] PCP - General Family Medicine 12/27/21 documented as of this encounter
--- OUTSIDE RECORDS SUMMARY | 2025-04-02 07:50 | XMS_ITS | Encounter Summary ---
Author Organization [employer] Address [address] [facility] [address] 7t [place] [address] Care Team Providers Care Waterproofer Helper Name Role Phone Tierney Goncalves BIOLOGICAL PLANT OPERATOR Primary Care Provider [phone] Encounter Details Date Type Department Care Team (Late st Contact Info) Description 08/08/2023 Orders Only [facility] MEDICINE 230 [place] [address] ProviderEvon MD Social History Tobacco Use Types [...] documented as of this encounter Care Teams Waterproofer Helper Relationship Specialty Start Date End Date Tierney Goncalves FNP [address] [place] [address] PCP - General Family Medicine 12/27/21 documented as of this encounter
--- OUTSIDE RECORDS SUMMARY | 2025-04-02 07:50 | XMS_ITS | Encounter Summary ---
Author Organization [employer] Address 75 [facility] 7t [place] [address] Care Team Providers Care Child Caregiver Name Role Phone Tierney Goncalves SIGN POSTER Primary Care Provider [phone] Reason for Visit * Reason Onset Date Comments case clarification 07/31/2023 Encounter Details Date Type Department Care Team ([facility] st Contact Info) Description 07/31/[address] [facility] ADULT DENTAL [address] [place] [address] Camron Rios DDS [address] [place], [place] [phone] case clarification Social History Tobacco Use Types [...] as of this encounter Care Teams Child Caregiver Relationship Specialty Start Date End Date Tierney Goncalves FNP [address] [place] [address] PCP - General Family Medicine 12/27/21 documented as of this encounter
--- OUTSIDE RECORDS SUMMARY | 2025-04-02 07:50 | XMS_ITS | Encounter Summary ---
Author Organization [email or web address] Address 75 [facility] [address] [place] [address] Care Team Providers Care Apricot Packer Name Role Phone [facility] Primary Care Provider [phone] Reason for Visit * Reason Comments Med Refill Encounter Details Date Type Department Care Team ([facility] st Contact Info) Description 07/21/2022 Refill [facility] MEDICINE 230 [place] [address] [facility] 230 [place] [address] Joint pain in both hands Social History [...] documented as of this encounter Care Teams Apricot Packer Relationship Specialty Start Date End Date Tierney Goncalves FNP [address] [place] [address] PCP - General Family Medicine 12/27/21 documented as of this encounter
--- OUTSIDE RECORDS SUMMARY | 2025-04-02 07:50 | XMS_ITS | Encounter Summary ---
Author Organization [facility] Address [address] [place] [address] [place] [phone] Phone Care Team Providers Care Lean Process Deployment Consultant Name Role Phone Tierney Goncalves Primary Care Provider [phone] Encounter Details Date Type Department Care Team (Late st Contact Info) Description 07/31/2023 Procedure Pass [facility] Endoscopy Admitting Dept Virtual Department [address] [place] [address] Social History Tobacco Use Types Packs/Day Years [...] on filedocumented in this encounter Care Teams Lean Process Deployment Consultant Relationship Specialty Start Date End Date Tierney Goncalves FNP 230 [place] [address] PCP - General Nurse Practitioner 07/31/23 documented as of this encounter Additional Source Comments The information contained in this document represents components of the legal health record. It is not the complete legal health record.[facility]
--- OUTSIDE RECORDS SUMMARY | 2025-04-02 07:50 | XMS_ITS | Encounter Summary ---
Author Organization [employer] Address 75 [facility] 7t [place] [address] Care Team Providers Care Television News Photographer Name Role Phone [facility] Primary Care Provider [phone] Reason for Visit * Reason Comments Med Refill Encounter Details Date Type Department Care Team ([facility] st Contact Info) Description 03/13/2023 Refill [facility] MEDICINE 230 [place] [address] [facility] 230 [place] [address] Social History Tobacco Use Types Packs/Day Years [...] of this encounter Care Teams Television News Photographer Relationship Specialty Start Date End Date Tierney Goncalves FNP [address] [place] [address] PCP - General Family Medicine 12/27/21 documented as of this encounter
--- OUTSIDE RECORDS SUMMARY | 2025-04-02 07:50 | XMS_ITS | Clinical Summary ---
Author Organization [employer] Address 75 [facility] 7t [place] [address] Care Team Providers Care Tenter Frame Operator Name Role Phone Tierney Goncalves ROLL CONTOUR GRINDER Primary Care Provider [phone] Allergies No known active allergies Medications * [...] Overview (12/12/2022): Negative EMB 09/01/22 Followed by [facility] APPLICATIONS PROJECT MANAGER Mixed hyperlipidemia 05/26/2022 Overview (05/26/2022): 03/2022 ASCVD 2.8% Diet controlled Healthcare maintenance 04/02/2022 Overview (08/15/2023): Mammo: 02/2023 bi-rads 2 Pap: 05/2021 though [facility] APPLICATIONS PROJECT MANAGER, NIL HPV +'colpo PADMINI 1, repeat co-testing due 09/2023 C-scope: 2017, has upcoming appointment BMD: Routine age 67 HCV Screen: Neg 2016 HIV Screen: Neg 2015 Immunizations: declines COVID booster today. Otherwise UTD Screening Labs: A1c-4.8, 2020 Assessment & Plan (04/02/2022 1:22 PM EST): Mammo: 02/2022 bi-rads 2, repeat 02/2023 Pap: 05/2021 though [facility] APPLICATIONS PROJECT MANAGER, NIL HPV +, pt does not now what follow up is scheduled with Dr. Sne Dumontscope: 2017 BMD: Routine age 67 HCV [...] dysphagia and early satiety - Followed by [facility] GI with previously benign EGD w/ esophageal spasm, negative gastric emptying study, neg. H.pylori biopsy Osteoarthritis of facet joint of lumbar spine Overview (05/18/2022): - Hx of sacroilitis - Previously seen by [facility] ortho and pain mngmt; has received numerous steroid injections with minimal sx improvement. Has tried PT for various concerns without improvement. - Is not currently followed by ortho or pain mngmt Non-toxic multinodular goiter 07/20/2017 Overview (05/18/2022): Benign multi-nodular goiter followed by [facility] endo. Per lats visit note 08/2021, patient to reconsider thyroidectomy if sx of dysphagia worsen; has follow up in 6 months - Per chart review pt was referred to [place] for possible thyroidectomy however pt does not have transportation. Insurance barriers limit more local access. -FNA of left mid pole nodule on 04/20/16 consistent with benign follicular nodule. 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 Per visit note plan to monitor q. 6 months and consider biopsy if WBC count < 2 or development of B sx Diffuse spasm of esophagus 05/17/2016 Fibromyalgia 04/28/2016 Overview (01/02/2023): Duloxetine 40mg daily Amitriptyline 10mg at bedtime Chronic back pain, shoulder pain Hx of sacroilitis Previously seen by [facility] ortho and pain mngmt; has received numerous [...] Encounters Date Type Department Care Team Description 03/24/2025 Orders Only [facility] MEDICINE [address] [place] [address] Tierney Goncalves FNP 01/23/2025 Orders Only [facility] External Provider, [facility] 01/22/2025 Refill [facility] MEDICINE [address] [place] [address] Tierney Goncalves FNP Migraine without aura, not refractory 01/12/2025 Refill [facility] MEDICINE [address] [place] [address] Tierney Goncalves FNP Migraine without aura, not [...] 02/21/2023, 0 11/15/2015, 05/06/2015, Additional history exists Cervical Cancer Screening 12/16/2024 HPV/Cotest 12/16/2024 11/05/2023, 08/28/2022 Pap Smear 12/16/2024 11/05/2023, 05/0 04/2022, 07/04/2021 COVID-19 Vaccine ( season) 2024 02/21/2023, 09/06/2022, 09/15/2020, Additional history exists Influenza Vaccine (#1) 2024 , 02/21/2023, 03/31/2022, Additional history exists Disability Screening 08/06/2025 08/06/2024 SDOH Screening 09/12/2025 09/12/2024 Alcohol/Substance Use Screening 09/24/2025 09/24/2024 Depression Screening 09/24/2025 09/24/2024, 09/25/19 25 Tobacco Screening 10/06/2025 10/06/2024 Dental X-Ray: Full Mouth 01/05/2026 023, 07/09/2020, 08/07/2013 Mammogram 03/24/2026 03/24/2025, 02/28, 03/16/2023, Additional history exists Colonoscopy 03/06/2033 03/06/2023, 06/28, 07/11/2016 Colorectal Cancer Screening 03/06/2033 DTaP/Tdap/Td Vaccines (3 - Td or Tdap) [...] Comments BI MAMMOGRAM SCREENING TOMOSYNTHESIS BILATERAL Routine 03/24/2025 2:20 PM EST US PELVIS TRANSVAGINAL Routine 2:18 PM EDT HEPATITIS PANEL, GENERAL Routine 08/04/2024 7:29 AM EDT COLPOSCOPY Routine 12/17/2023 10:24 AM EDT HM [...] Results * BI Mammogram Screening Tomosynthesis Bilateral (03/24/2025 2:20 PM EST) Anatomical Region Laterality Modality Breast Bilateral Mammography 03/24/2025 2:20 PM EST Narrative 03/25/2025 7:20 PM EST [facility] [address] [place], [place] [address] Mammography Report Signed Patient: Adela Flynn MR#: [id number] : 1960 Acct:[id number] Age/Sex: 65 / F ADM Date: 03/24/25 Loc: HO.MAMMO Attending Dr: Tierney Goncalves ROLL CONTOUR GRINDER Ordering Physician: Tierney Goncalves ROLL CONTOUR GRINDER Results: 2Beni gn Date of Service: 03/24/25 Follow Up: 1 Year From Orig inal Mammogram Procedure(s): MM tomosynthesis screening BI Accession Number(s): [id number] cc: Tierney Goncalves ROLL CONTOUR GRINDER Reason For Exam: SCREENING EXAMINATION: MM SCREENING DIGITAL BREAST TOMOSYNTHESIS, BILATERAL CLINICAL INFORMATION: Screening. Asymptomatic. Right breast stereotactic needle core biopsy on August 28, 2012 (top hat shape clip); pathology is benign, in the area of sclerosing adenosis. COMPARISON: Comparison made to multiple prior, most recent March 16, 2023, and most remote September 21, 2016. TECHNIQUE: Digital breast tomosynthesis is performed in mediolateral oblique and craniocaudal views along with computer-aided detection (CAD). Synthesized 2D images are generated from the tomosynthesis. FINDINGS: BREAST COMPOSITION: The breasts are heterogeneously dense, which may obscure small masses. RIGHT BREAST: Tissue marker from previous needle core biopsy. No significant masses, suspicious calcifications or other abnormalities are seen. LEFT BREAST: No significant masses, suspicious calcifications or other abnormalities are seen. MM/MM tomosynthesis screening BI IMPRESSION: BILATERAL BREASTS: Benign, no mammographic evidence of malignancy. Normal interval follow-up is recommended in 12 months. ASSESSMENT: BI-RADS: Category 2: Benign RECOMMENDATION: Routine annual mammography screening. FOLLOW-UP: 1 year F/U This examination should not preclude the clinical evaluation of a suspicious palpable abnormality. This patient's information was entered into a reminder system with a target due date for their next mammogram. Electronically signed by: Juwan Wilson MD 03/25/2025 07:17 PM [facility] Dictated By: Juwan Wilson MD Signed By: <Electronically signed by Juwan Wilson MD in OV> 03/25/25 1917 DD/ 1420 TD/TT: 03/24/25 1444 Hvac Design Engineer: Procedure Note Donotuseinterpreter, Image - 03/25/2025 [facility] [address] [place], [place] [address] Mammography Report Signed Patient: Adela Flynn YMR#: [id number] : 2Acct:[id number] Age/Sex: 65 / FADM Date: 03/24/25 Loc: HO.MAMMO Attending Dr: Tierney Goncalves ROLL CONTOUR GRINDER Ordering Physician: Tierney Goncalves FNPResults: 2Beni gn Date of Service: 03/24/25Follow Up: 1 Year From Orig inal Mammogram Procedure(s): MM tomosynthesis screening BI Accession Number(s): [id number] cc: Tierney Goncalves ROLL CONTOUR GRINDER Reason For Exam: SCREENING EXAMINATION: MM SCREENING DIGITAL BREAST TOMOSYNTHESIS, BILATERAL CLINICAL INFORMATION: Screening. Asymptomatic. Right breast stereotactic needle core biopsy on August 28, 2012 (top hat shape clip); pathology is benign, in the area of sclerosing adenosis. COMPARISON: Comparison made to multiple prior, most recent March 16, 2023, and most remote September 21, 2016. TECHNIQUE: Digital breast tomosynthesis is performed in mediolateral oblique and craniocaudal views along with computer-aided detection (CAD). Synthesized 2D images are generated from the tomosynthesis. FINDINGS: BREAST COMPOSITION: The breasts are heterogeneously dense, which may obscure small masses. RIGHT BREAST: Tissue marker from previous needle core biopsy. No significant masses, suspicious calcifications or other abnormalities are seen. LEFT BREAST: No significant masses, suspicious calcifications or other abnormalities are seen. MM/MM tomosynthesis screening BI IMPRESSION: BILATERAL BREASTS: Benign, no mammographic evidence of malignancy. Normal interval follow-up is recommended in 12 months. ASSESSMENT: BI-RADS: Category 2: Benign RECOMMENDATION: Routine annual mammography screening. FOLLOW-UP: 1 year F/U This examination should not preclude the clinical evaluation of a suspicious palpable abnormality. This patient's information was entered into a reminder system with a target due date for their next mammogram. Electronically signed by: Juwan Wilson MD 03/25/2025 07:17 PM [facility] Dictated By: Juwan Wilson MD Signed By: <Electronically signed by Juwan Wilson MD in OV> 03/25/25 191 DD/ 1420 TD/TT: 03/24/25 1444 Hvac Design Engineer: [facility] ROLL CONTOUR GRINDER IMG BI PROCEDURES Final Resul t * US Pelvis Transvaginal (01/23/2025 2:18 PM EDT) Anatomical Region Laterality Modality Pelvis Ultrasound 01/23/2025 2:18 PM EDT Narrative 01/23/2025 2:55 PM EDT [place] [address] Ultrasound Report Signed Patient: Adela Flynn MR#: [id number] : 1960 Acct:[id number] Age/Sex: 64 / F ADM Date: 01/23/25 Loc: HO.US Attending Dr: Flaco Chatterjee MD Ordering Physician: Flaco Chatterjee MD Date of Service: 01/23/25 Procedure(s): US pelvic and transvaginal Accession Number(s): [id number] cc: [facility]; Flaco Chatterjee MD Reason for [...] 01/23/25 1452 DD/ 1418 TD/TT: 01/23/25 1430 Hvac Design Engineer: Procedure Note Donotuseinterpreter, Image - 01/23/[address] [address] Ultrasound Report Signed Patient: Adela Flynn YMR#: [id number] : 1960cct:[id number] Age/Sex: 64 / FADM Date: 01/23/25 Loc: .US Attending Dr: Flaco Chatterjee MD Ordering Physician: Flaco Chatterjee MD Date of Service: 01/23/25 Procedure(s): US pelvic and transvaginal Accession Number(s): [id number] [facility]; Flaco Chatterjee MD Reason for [...] 01/23/25 1452 DD/ 1418 TD/TT: 01/23/25 1430 Hvac Design Engineer: [facility] External Provider IMG US PROCEDURES Final Result * Hepatitis Panel, General (08/04/2024 7:29 AM EDT) Hepatitis A IgM Nonreactive Nonreactive [facility] Comment:IgM antibodies to SERRANO V not detected; does not exclude earlyacute or recovered HAV infection. ~Hepatitis B Surface Antibody REACTIVE Nonreactive [facility] Comment:REACTIVE: > 11.99 mI U/mL Hepatitis B Core Antibody Nonreactive Nonreactive [facility] Hepatitis C Antibody Nonreactive Nonreactive [facility] Comment:Antibodies to HCV no t detected; does not exclude early acuteHCV infection. Hepatitis B Surface Ag Negative Negative [facility] 08/04/2024 7:29 AM EDT 08/04/2024 7:34 AM EDT Generic External Data Provider LAB BLOOD ORDERAB LES Final Result [facility] [address] [place] [phone] * Colposcopy (12/17/2023 10:24 AM EDT) Historical [...] to Health Maintenance Insurance [facility] , [address] [place] [address] DENTAL - HSN PARTIAL (MEDICAID) Care Teams Tenter Frame Operator Relationship Specialty Start Date End Date Tierney Goncalves FNP [address] [place] [address] PCP - General Family Medicine 12/27/21
--- OUTSIDE RECORDS SUMMARY | 2025-04-02 07:50 | XMS_ITS | Encounter Summary ---
Author Organization [employer] Address 75 [facility] 7t [place] [address] Care Team Providers Care [place] Consultant Name Role Phone [facility] Primary Care Provider [phone] Reason for Visit * Reason Onset Date Comments Prior Authorization 05/16/2024 Encounter Details Date Type Department Care Team (Late st Contact Info) Description 05/16/2024 Telephone [facility] MED & PEDS [address] [place] [address] [facility] [address] [place] [address] Prior Authorization Social History Tobacco Use Types [...] documented as of this encounter Care Teams Groundwater Consultant Relationship Specialty Start Date End Date Tierney Goncalves FNP [address] [place] [address] PCP - General Family Medicine 12/27/21 documented as of this encounter
--- OUTSIDE RECORDS SUMMARY | 2025-04-02 07:50 | XMS_ITS | Encounter Summary ---
Author Organization [employer] Address [address] [facility] [address] 7t [place] [address] Care Team Providers Care Aircraft Fueler Name Role Phone Tierney Goncalves VP PRODUCT Primary Care Provider [phone] Encounter Details Date Type Department Care Team (Late st Contact Info) Description 11/13/2023 Orders Only [facility] MEDICINE [address] [place] [address] ProviderEvon MD Social History Tobacco Use Types [...] documented as of this encounter Care Teams Aircraft Fueler Relationship Specialty Start Date End Date Tierney Goncalves FNP [address] [place] [address] PCP - General Family Medicine 12/27/21 documented as of this encounter
--- OUTSIDE RECORDS SUMMARY | 2025-04-02 07:50 | XMS_ITS | Encounter Summary ---
Author Organization [employer] Address [address] [facility] [address], [place] [address] Care Team Providers Care Wireless Architect Name Role Phone [place] [facility] Primary Care Provider [phone] Encounter Details Date Type Department Care Team ([facility] st Contact Info) Description 05/16/2022 Telephone [facility] MEDICINE [address] [place], [place] [phone] [facility] [address] [place], [place] [phone] Social History Tobacco Use Types Packs/Day Years [...] on filedocumented in this encounter Care Teams Wireless Architect Relationship Specialty Start Date End Date Tierney Goncalves FNP [address] [place] [phone] PCP - General Family Medicine 12/27/21 documented as of this encounter
--- OUTSIDE RECORDS SUMMARY | 2025-04-02 07:50 | XMS_ITS | Encounter Summary ---
Author Organization [facility] Address [address] [place] [phone] Phone Care Team Providers Care Direct Chill Casting Operator Name Role Phone Pcp, Unknown Primary Care Provider Unavailabl e Tierney Goncalves Primary Care Provider [phone] Encounter Details Date Type Department Care Team (Late st Contact Info) Description 07/24/2023 Procedure Pass [facility] Endoscopy Admitting Dept Virtual Department [address] [place] [address] Social History Tobacco Use Types Packs/Day Years [...] on filedocumented in this encounter Care Teams Direct Chill Casting Operator Relationship Specialty Start Date End Date Pcp, Unknown PCP - General 04/17/23 07/30/23 Tierney Goncalves FNP [address] [place] [address] PCP - General Nurse Practitioner 07/31/23 documented as of this encounter Additional Source Comments The information contained in this document represents components of the legal health record. It is not the complete legal health record.[facility]
--- NOTE | 2025-04-02 07:51 | MHC.OFFVIS ---
Vital Signs 04/02/25 07:52 Height 5 ft 3 in Weight 129 lb BMI 22.8 BP 102/60 Intake Visit Reasons: Annual Catshovel Driver Required: No Information Interpreted: non-clinical & clinical Fishing Rod Marker: Fishing Rod Marker Present (Mirtha ABARCA) Allergies No Known Allergies (No Known Allergies*) Allergy (Verified 03/31/25 11:03) HPI Comments Details: Presenting for annual exam. No complaints. Last Pap/HPV was negative/HPV positive in 11/20, colpo biopsy ECC was negative Last Mammogram was BI-RADS 2 in 03/24 Last Colonoscopy was done in 03/23 [facility] Medical History Cervical high risk HPV (human papillomavirus) test positive Fibromyalgia Elevated cholesterol Weight loss Karina's disease Non-toxic multinodular goiter Osteoarthritis of left hip Schatzki's ring Hiatal hernia Hx of migraines History of multinodular goiter IBS (irritable bowel syndrome) GERD (gastroesophageal reflux disease) Dysphagia Chronic pain syndrome Spondylosis, lumbar, with myelopathy Sacroiliitis Surgical History Hx of hernia repair History of carpal tunnel release History of bilateral tubal ligation Hx of dilation and curettage Hx of arthroscopy of right knee History of esophagogastroduodenoscopy (EGD) Hx of colonoscopy History of cholecystectomy Family History Father Unknown family medical history Mother Arthritis Diverticulitis Gastritis Breast cancer Chronic asthma Adenomatous colon polyp HTN (hypertension) Maternal Grandmother Colon cancer Daughter Hypothyroid Daughter Traveling blood clot in leg Obesity Prediabetes Social History Household Members: Spouse Housing: House Are you a primary healthcare administration internship to a significant other at home: No Do you presently have visiting nurse or other home services: No Alcohol intake: never Comment: Counts correct Patient Tobacco Use Status: Former Tobacco user Tobacco use type: Cigarette Years Smoked: 20 service: No Current occupational status: employed 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 History Menstrual Age of Menarche: 13 Date of last pap smear: 08/29/22 Date of Mammogram: 03/24/25 Review of Systems Const All systems reviewed & are unremarkable except as noted in HPI and below Card Reports as per HPI Resp Reports as per HPI GI Reports as per HPI and Reports no additional complaints Reports as per HPI Physical Exam Vital Signs: BMI result Body Mass Index 22.8 Const General: cooperative, healthy appearing and comfortable Chest Chest palpation & inspection: normal inspection of the chest and normal palpation of entire chest wall Breast/axilla inspection: normal inspection of the breasts and normal inspection of the axillae Breast/axilla palpation: normal palpation of the breasts, normal palpation of the axillae and no axillary lymphadenopathy Resp Effort & Inspection: normal respiratory effort Auscultation: clear to auscultation bilaterally Percussion: percussion normal Cardio Palpation: normal PMI Rate: regular rate Rhythm: regular rhythm Heart sounds: no murmurs and no rubs Peripheral pulses: Peripheral pulses 2+ throughout GI Inspection: Yes normal to inspection Palpation (GI): Soft to palpation, nontender, no guarding, not rigid and No hepatosplenomegaly present Percussion: Yes normal to percussion Auscultation: normal bowel sounds Rectal Exam - Female: deferred General: Yes bladder normal to palpation External Female Exam: No lesion Speculum Exam - Vagina: normal appearance of the vagina, normal palpation, normal vaginal discharge and not erythematous Speculum Exam - Cervix: normal appearance of the cervix and normal palpation Bimanual exam- vagina & uterus: normal bimanual exam, normal palpation, uterine size normal, bladder normal to palpation, consistency normal and normal palpation Bimanual Exam- Adnexa, other: normal adnexae, no masses and no tenderness Assessment & Plan Assessment & Plan (1) Well woman exam: Comment: Pap/HPV positive in 07/19 and in 09/19, colpo/biopsy/ECC PADMINI 1 11/20 Pap negative/HPV positive, colpo biopsy ECC negative Code(s): Z01.419 - Encounter for gynecological examination (general) (routine) without abnormal findings Category: Medical Plan: Co testing done. Counseled the patient about the recommended dietary allowance of 1200 mg of Calcium & 600 IU of vitamin D. Instructions given the patient to schedule next screening Mammogram in 03/25 The patient was instructed to perform monthly self-breast exams and schedule annual exam in a year. All questions answered and the patient verbalized understanding. Coding Level of Care Code Est Pt Prev Care 40-64y(82327) Diagnoses Well woman exam Z01.419
[2025-04-02 07:52] VITALS: BP 102/60; BMI 22.8
== END 2025-04-02 08:13 | disposition home or self-care (01) ==
LOC: HO.HWS 07:47
PROVIDERS: PCP Registered Nurse; Visit Provider Obstetrics & Gynecology
DX: Z01.419 Encounter for gynecological examination (general) (routine) without abnormal findings (principal)
CPT/HCPCS: 99396; 99459

== ENCOUNTER 2025-04-16 13:47 | Outpatient (AMB) | payer OTHER, SELFPAY ==
--- NOTE | 2025-04-16 13:49 | A.OFFVIS_ITS ---
Vital Signs 04/16/25 13:50 Height 5 ft 3 in Weight 131 lb BMI 23.2 BP 103/52 L Blood Pressure Location Rt brachial Position Sitting Pulse 55 Intake Visit Reasons: GERD, CIC Intake Note: Adela returns in follow up of GERD and CIC. CC: Pt reports having lower abdominal lately. Denies other GI symptoms today. Account Manager Education Required: No Accompanied by: Self / Same As Patient Allergies No Known Allergies (No Known Allergies*) Allergy (Verified 04/16/25 13:53) HPI HPI GERD, CIC: Details: Assessment & Plan (1) GERD (gastroesophageal reflux disease): Code(s): K21.9 - Gastro-esophageal reflux disease without esophagitis Category: Medical (2) Constipation: Code(s): K59.00 - Constipation, unspecified Category: Medical (3) Family history of polyps in the colon: Comment: mother, maternal grandmother had CRC, 2022=hyperplasitic polyp repeat 5 years r/t FHX Code(s): Z83.719 - Family history of colon polyps, unspecified Category: Medical Plan She is struggling with left ear problems. She also is having very bad back problems. Surgery is apparently not an option for her and she has exhausted her options with PT and injection therapy. She is no longer taking carafate, but still utilizing senna for her kake CIC. She is doing well on this and her pantoprazole. ROV 6 mow. Medications: Refilled sennosides (Senna Laxative) 17.2 mg (2 x 8.6 mg) PO BEDTIME 60 tabs 6RF K59.00 - Constipation, unspecified pantoprazole 40 mg PO DAILY@0630 30 tabs 6RF K21.9 - Gastro-esophageal reflux disease without esophagitis CORRESPONDENCE On 01/27/25 @ 08:43 Renuka Gaines Wrote To Indu Jones Patient called back to say she wants to go back on Omeprazole and stop the Pantoprazole they are giving her to many headaches. Thank you On 01/16/25 @ 15:18 Clarissa Still Wrote To Clarissa Still Clarissa Still completed item. On 01/16/25 @ 14:59 Indu Jones Wrote To Clarissa Still Okay, but I sent pantoprazole to her pharmacy in September with 6 refills so she should be good until March. Perhaps she needs verify the pharmacy? On 01/16/25 @ 14:44 Clarissa Still Wrote To Karen,July I just called the patient again to verify and she said the same version, she would like you to change her medication Omeprazole back to Pantoprazole, due Omeprazole is getting her a lot of headaches. TODAY'S VISIT [facility] Medical History Cervical high risk HPV (human papillomavirus) test positive Fibromyalgia Elevated cholesterol Weight loss Karina's disease Non-toxic multinodular goiter Osteoarthritis of left hip Schatzki's ring Hiatal hernia Hx of migraines History of multinodular goiter IBS (irritable bowel syndrome) GERD (gastroesophageal reflux disease) Dysphagia Chronic pain syndrome Spondylosis, lumbar, with myelopathy Sacroiliitis Surgical History Hx of hernia repair History of carpal tunnel release History of bilateral tubal ligation Hx of dilation and curettage Hx of arthroscopy of right knee History of esophagogastroduodenoscopy (EGD) Hx of colonoscopy History of cholecystectomy Family History Father Unknown family medical history Mother Arthritis Diverticulitis Gastritis Breast cancer Chronic asthma Adenomatous colon polyp HTN (hypertension) Maternal Grandmother Colon cancer Daughter Hypothyroid Daughter Traveling blood clot in leg Obesity Prediabetes Social History Household Members: Spouse Housing: House Are you a primary career resource specialist to a significant other at home: No Do you presently have visiting nurse or other home services: No Alcohol intake: never Comment: Counts correct Patient Tobacco Use Status: Former Tobacco user Tobacco use type: Cigarette Years Smoked: 20 service: No Current occupational status: employed 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 History Menstrual Age of Menarche: 13 Review of Systems Const Denies fatigue, Denies fever(s), Denies night sweats, Denies poor appetite and Denies weight loss Eyes Details: glasses Reports requires corrective lenses ENT Reports Normal hearing present, Denies dental pain, Denies dysphagia, Denies hearing loss, Denies mouth pain, Denies odynophagia, Reports post nasal drip, Denies throat swelling, Denies tongue swelling and Reports other (Dentition adequate) Card Reports no additional complaints Resp Reports no additional complaints GI Details: Denies abdominal pain, Denies melena, Denies bloating, Denies hematochezia, Reports constipation, Denies GI cramping, Denies dysphagia, Denies excessive flatus, Denies early satiety, Reports heartburn, Denies diarrhea, Denies nausea, Denies odynophagia, Denies vomiting and Denies hematemesis Skin/Breast Denies pruritus, Denies lesions, Denies rash and Denies jaundice Neuro Reports Normal hearing present and Denies Abnormal speech present Endo Denies fatigue Aller/Immun Denies throat swelling and Denies tongue swelling Physical Exam Vital Signs: Last Vital Signs Pulse 55 04/16/25 13:50 BP 103/52 L 04/16/25 13:50 BMI result Body Mass Index 23.2 Const General: cooperative, no acute distress, well developed and well groomed Nutritional Appearance: average body habitus and well nourished Orientation/consciousness: oriented to person, oriented to place and oriented to time Limitations: No language barrier HEENT Head: Yes normocephalic and Yes atraumatic Eyes General: appearance normal, both eyes and all related structures Pupils: Equal, round and reactive pupils present Neck Neck: Yes normal visual inspection and Yes no lymphadenopathy Thyroid: Thyroid normal Resp Effort & Inspection: normal respiratory effort and able to speak in complete sentences Auscultation: clear to auscultation bilaterally Cardio Rate: regular rate Rhythm: regular rhythm Heart sounds: Normal, physiologic split S2 sound present Peripheral pulses: radial pulses present and posterior tibial pulses present GI Inspection: No distended and No Abdominal panniculus present Palpation (GI): Soft to palpation, nontender, no guarding, not rigid and No hepatosplenomegaly present Percussion: Yes normal to percussion Auscultation: normal bowel sounds Rectal Exam - Female: deferred Skin General skin exam: no rashes or lesions noted, turgor normal, skin not dry, no jaundice, No spider nevi and no striae Rashes: no rashes Nails: normal Neuro General: oriented to person, oriented to place and oriented to time Cranial nerves: Yes Equal, round and reactive pupils present and Yes Normal hearing present Speech: No Abnormal speech present Extrem General: Yes normal to inspection, No clubbing, No cyanosis and No edema Psych Appearance: grossly normal and well kempt Mental Status: mental status grossly normal Speech and movement: Normal speech and movement present Affect: normal affect Attitude: cooperative Thought process: Normal thought process present and not confabulating Thought content: Normal thought content present Insight: Good insight present (Psych) Judgement: Good judgement present (Psych) Assessment & Plan Assessment & Plan (1) GERD (gastroesophageal reflux disease): Code(s): K21.9 - Gastro-esophageal reflux disease without esophagitis Category: Medical (2) Constipation: Code(s): K59.00 - Constipation, unspecified Category: Medical Plan no longer taking carafate, but still utilizing senna and pantoprazole. Subjective Patient follows up for reflux management. Reports prior headaches upon awakening while taking pantoprazole; headaches resolved after stopping pantoprazole for 1?2 days. Transitioned back to omeprazole with good symptom control and improved tolerance. Denies need for Carafate. Patient also reports persistent morning throat mucus that accumulates in the back of the throat, contributing to difficulty swallowing at times during the day. Notes intermittent ear problems, including one episode of ear blockage for approximately three weeks treated at urgent care with antibiotics without improvement; nasal saline irrigation subsequently cleared symptoms. Objective Assessment & Plan Gastroesophageal reflux disease (GERD): GERD currently well controlled on omeprazole after prior intolerance to pantoprazole (morning headaches that resolved when discontinued). - Continue omeprazole as currently prescribed. - Carafate not needed at this time. - Medication refills provided. - Routine follow-up in 6 months. Upper airway symptoms/postnasal drainage, suspected sinus-related: Morning throat mucus with impact on swallowing; history of ear blockage not responsive to antibiotics but improved with nasal saline rinse. Ear involvement suggests a sinus/upper airway etiology; reflux contribution discussed as a possibility. - Advise consultation with primary care for evaluation and referral to ENT as appropriate. - Patient may continue nasal saline irrigations as previously helpful. Colorectal cancer screening surveillance: Next colonoscopy due in 2027. - No action needed at this time; continue routine surveillance timeline. Medications: Refilled sennosides (senna) 17.2 mg (2 x 8.6 mg) PO BEDTIME 60 tabs 6RF K59.00 - Constipation, unspecified omeprazole 40 mg PO DAILY 30 caps 6RF 30 days Coding Level of Care Code Est Pt Level 3 (69941) Diagnoses GERD (gastroesophageal reflux disease) K21.9 Constipation K59.00
[2025-04-16 13:50] VITALS: BP 103/52; PULSE 55; BMI 23.2
--- OUTSIDE RECORDS SUMMARY | 2025-04-16 18:01 | XMS_ITS | Encounter Summary ---
Author Organization [employer] Address [address] [facility] 7t [place] [address] Care Team Providers Care Paving Machine Operator Name Role Phone Tierney Goncalves WEATHER ALGORITHM SCIENTIST Primary Care Provider [phone] Reason for Visit * Reason Onset Date Comments case clarification 07/31/2023 Encounter Details Date Type Department Care Team ([facility] st Contact Info) Description 07/31/2023 Telephone [facility] ADULT DENTAL [address] [place] [address] Camron Rios DDS [address] [place], [place] [phone] case clarification Social History Tobacco Use Types [...] documented as of this encounter Care Teams Paving Machine Operator Relationship Specialty Start Date End Date Tierney Goncalves FNP [address] [place] [address] PCP - General Family Medicine 12/27/21 documented as of this encounter
--- OUTSIDE RECORDS SUMMARY | 2025-04-16 18:01 | XMS_ITS | Encounter Summary ---
Author Organization [employer] Address [address] [facility] 7t [place] [address] Care Team Providers Care Firearms Assembly Supervisor Name Role Phone Iv[facility] Primary Care Provider Reason for Visit * Reason Onset Date Comments ER Follow-up 08/05/2024 Nurse Triage 08/05/2024 Encounter Details Date Type Department Care Team (Late st Contact Info) Description 08/05/2024 Telephone [facility] MEDICINE [address] [place] [address] [facility] [address] [place], [place] [phone] ER Follow-up; Nurse Triage Social History Tobacco [...] 08/05/2024 10:11 AM EDT Date: 08/04/24 Hospital: [facility] Seen for: elevated liver function Symptomatic Yes, can't really eat due to feeling nauseous Pt. States was told needs liver function testing within 48 hours. Called pt. She states she started feeling sick to her stomach x 2 days ago. Pt. Had vomiting ,diarrhea, and chills. Pt went to [facility] ED on 08/04/24. [...] pt. Chart but I do not see [facility] ED note in chart. Will send request for [facility] ED report from [...] For 08/06/24 at 930am with Harika Mensah GREEN MEAT GRADER for [facility] ED FU and [...] ED visit on : Date: 08/04/24 Hospital: [facility] Seen for: elevated [...] documented as of this encounter Care Teams Firearms Assembly Supervisor Relationship Specialty Start Date End Date Tierney Goncalves FNP [address] [place] [id number] PCP - General Family Medicine 12/27/21 documented as of this encounter
--- OUTSIDE RECORDS SUMMARY | 2025-04-16 18:01 | XMS_ITS | Encounter Summary ---
Author Organization [email or web address] Address [address] [facility] [address] [place] [address] Care Team Providers Care Central Supply Nurse Name Role Phone Tierney Goncalves SELF SEALING FUEL TANK BUILDER Primary Care Provider [phone] Encounter Details Date Type Department Care Team ([facility] st Contact Info) Description 09/07/2023 Telephone [facility] ADULT DENTAL [address] [place], [place] [phone] Camron Rios DDS [address] [place], [place] [phone] Social History Tobacco Use Types Packs/Day Years [...] housing situation today? I have dael hernandez 02/15/[address] you [...] EDT Patient calling to make apt to bean picker machine operator parcles documented in this encounter Plan of Treatment Not on file documented as of this encounter Visit Diagnoses Not on filedocumented in this encounter Additional Health Concerns Assessment Noted Time PHQ-9 Depression Total Score: 0 05/16/19 24 3:22 PM EST documented as of this encounter Care Teams Central Supply Nurse Relationship Specialty Start Date End Date Tierney Goncalves FNP [address] [place] [phone] PCP - General Family Medicine 12/27/21 documented as of this encounter
--- OUTSIDE RECORDS SUMMARY | 2025-04-16 18:01 | XMS_ITS | Encounter Summary ---
Author Organization [employer] Address [address] [facility] [address] [place] [address] Care Team Providers Care Woodyard Crane Operator Name Role Phone Tierney Goncalves BAKING FACTORY WORKER Primary Care Provider [phone] Encounter Details Date Type Department Care Team (Late st Contact Info) Description 08/08/2023 Orders Only [facility] MEDICINE [address] [place] [address] ProviderEvon MD Social History Tobacco Use Types [...] documented as of this encounter Care Teams Woodyard Crane Operator Relationship Specialty Start Date End Date Tierney Goncalves FNP [address] [place] [phone] PCP - General Family Medicine 12/27/21 documented as of this encounter
--- OUTSIDE RECORDS SUMMARY | 2025-04-16 18:01 | XMS_ITS | Encounter Summary ---
Author Organization [employer] Address [address] [facility] 7t [place] [address] Care Team Providers Care Supervisor Electron Tube Processing Name Role Phone [facility] Primary Care Provider [phone] Reason for Visit * Reason Comments Med Refill Encounter Details Date Type Department Care Team ([facility] st Contact Info) Description 08/19/2023 Refill [facility] MEDICINE [address] [place], [place] [phone] [facility] [address] [place] [address] Fibromyalgia Social History Tobacco Use Types Packs/Day [...] as of this encounter Care Teams Supervisor Electron Tube Processing Relationship Specialty Start Date End Date Tierney Goncalves FNP [address] [place] [address] PCP - General Family Medicine 12/27/21 documented as of this encounter
--- OUTSIDE RECORDS SUMMARY | 2025-04-16 18:01 | XMS_ITS | Encounter Summary ---
Author Organization [employer] Address [address] [facility] 7t [place] [address] Care Team Providers Care Assisted Living Nursing Director Name Role Phone [facility] Primary Care Provider [phone] Reason for Visit * Reason Comments Med Refill Encounter Details Date Type Department Care Team ([facility] st Contact Info) Description 01/12/[address] [facility] MEDICINE [address] [place] [address] [facility] [address] [place] [address] Migraine without aura, not refractory Social History [...] documented as of this encounter Care Teams Assisted Living Nursing Director Relationship Specialty Start Date End Date Tierney Goncalves FNP [address] [place] [address] PCP - General Family Medicine 12/27/21 documented as of this encounter
--- OUTSIDE RECORDS SUMMARY | 2025-04-16 18:01 | XMS_ITS | Encounter Summary ---
Author Organization [employer] Address [address] [facility] [address] 7[address] [place] [address] Care Team Providers Care Pattern Changer Name Role Phone Tierney Goncalves CLINICAL IMPLEMENTATION SPECIALIST Primary Care Provider [phone] Encounter Details Date Type Department Care Team (Late st Contact Info) Description 08/05/2024 Orders Only [facility] MED & PEDS [address] [place] [address] ProviderEvon MD Social History Tobacco Use Types [...] documented as of this encounter Care Teams Pattern Changer Relationship Specialty Start Date End Date Tierney Goncalves FNP [address] [place] [phone] PCP - General Family Medicine 12/27/21 documented as of this encounter
--- OUTSIDE RECORDS SUMMARY | 2025-04-16 18:01 | XMS_ITS | Encounter Summary ---
Author Organization [employer] Address [address] [facility] [address] 7t [place] [address] Care Team Providers Care Bridal Service Sales And Management Name Role Phone Tierney Goncalves INFECTION PREVENTION COORDINATOR Primary Care Provider [phone] Encounter Details Date Type Department Care Team (Late st Contact Info) Description 11/13/2023 Orders Only [facility] [address] [place] [address] ProviderEvon MD Social History Tobacco Use Types [...] documented as of this encounter Care Teams Bridal Service Sales And Management Relationship Specialty Start Date End Date Tierney Goncalves FNP [address] [place] [phone] PCP - General Family Medicine 12/27/21 documented as of this encounter
--- OUTSIDE RECORDS SUMMARY | 2025-04-16 18:02 | XMS_ITS | Clinical Summary ---
Author Organization [employer] Address [address] [facility] 7t [place] [address] Care Team Providers Care Sort Line Worker Name Role Phone Tierney Goncalves GOVERNMENT AFFAIRS FELLOW Primary Care Provider [phone] Allergies No known active allergies Medications * [...] Overview (12/12/2022): Negative EMB 09/01/22 Followed by [facility] TRACK OILER Mixed hyperlipidemia 05/26/2022 Overview (05/26/2022): 03/2022 ASCVD 2.8% Diet controlled Healthcare maintenance 04/02/2022 Overview (08/15/2023): Mammo: 02/2023 bi-rads 2 Pap: 05/2021 though [facility] TRACK OILER, NIL HPV +'colpo PADMINI 1, repeat co-testing due 09/2023 C-scope: 2017, has upcoming appointment BMD: Routine age 67 HCV Screen: Neg 2016 HIV Screen: Neg 2015 Immunizations: declines COVID booster today. Otherwise UTD Screening Labs: A1c-4.8, 2020 Assessment & Plan (04/02/2022 1:22 PM EST): Mammo: 02/2022 bi-rads 2, repeat 02/2023 Pap: 05/2021 though [facility] TRACK OILER, NIL HPV +, pt does not now [...] dysphagia and early satiety - Followed by [facility] GI with previously benign EGD w/ esophageal spasm, negative gastric emptying study, neg. H.pylori biopsy Osteoarthritis of facet joint of lumbar spine Overview (05/18/2022): - Hx of sacroilitis - Previously seen by [facility] ortho and pain mngmt; has received numerous steroid injections with minimal sx improvement. Has tried PT for various concerns without improvement. - Is not currently followed by ortho or pain mngmt Non-toxic multinodular goiter 07/20/2017 Overview (05/18/2022): Benign multi-nodular goiter followed by [facility] endo. Per lats visit note 08/2021, patient to reconsider thyroidectomy if sx of dysphagia worsen; has follow up in 6 months - Per chart review pt was referred to [facility] for possible thyroidectomy however pt does not have transportation. Insurance barriers limit more local access. -FNA of left mid pole nodule on 04/20/16 consistent with benign follicular nodule. 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 Per visit note plan to monitor q. 6 months and consider biopsy if WBC count < 2 or development of B sx Diffuse spasm of esophagus 05/17/2016 Fibromyalgia 04/28/2016 Overview (01/02/2023): Duloxetine 40mg daily Amitriptyline 10mg at bedtime Chronic back pain, shoulder pain Hx of sacroilitis Previously seen by [facility] ortho and pain mngmt; has received numerous [...] Encounters Date Type Department Care Team Description 04/02/2025 Orders Only GENERIC EXTERNAL DATA DEPARTMENT Provider, Generic External Data 03/24/20[address] Orders [address] [facility] [address] [place] [address] [place] Tierney, [facility] 01/23/2025 Orders Only [facility] External Provider, [facility] 01/22/[address] [facility] [address] [facility] [place] [address] [place], [facility] Migraine without aura, not refractory from Last [...] 02/21/2023, 0 11/15/2015, 05/06/2015, Additional history exists COVID-19 Vaccine ( season) 2024 02/21/2023, 09/06/2022, 09/15/2020, Additional history exists Influenza Vaccine (#1) 2024 , 02/21/2023, 03/31/2022, Additional history exists Disability Screening 08/06/2025 08/06/2024 SDOH Screening 09/12/2025 09/12/2024 Alcohol/Substance Use Screening 09/24/2025 09/24/2024 Depression Screening 09/24/2025 09/24/2024, 09/25/19 Tobacco Screening 10/06/2025 10/06/2024 Dental X-Ray: Full Mouth 01/05/2026 023, 07/09/2020, 08/07/2013 Mammogram 03/24/2026 03/24/2025, 02/28, 03/16/2023, Additional history exists Cervical Cancer Screening 04/02/2026 HPV/Cotest 04/02/2026 04/02/2025, 07/0 11/2023, 08/28/2022 Pap Smear 04/02/2026 04/02/2025, 07/0 11/2023, 08/28/2022, Additional history exists Colonoscopy 03/06/2033 03/06/2023, 06/28, [...] Procedure Name Priority Date/Time Associated Diagnosis Comments PAP SMEAR Routine 04/02/2025 8:08 AM EST HPV DNA, LOW/HIGH RISK Routine 8:08 AM EST BI MAMMOGRAM SCREENING TOMOSYNTHESIS BILATERAL Routine 03/24/2025 2:20 PM EST US PELVIS TRANSVAGINAL Routine 2:18 PM EDT HEPATITIS PANEL, GENERAL Routine 08/04/2024 7:29 AM EDT COLPOSCOPY Routine 12/17/2023 10:24 AM EDT HM COLONOSCOPY Routine 03/06/2023 8:12 AM EST [...] Recently Relevant to Health Maintenance Results * HPV DNA, Low/High Risk (04/02/2025 8:08 AM EST) HPV High Risk Negative Negative [facility] HPV Genotype 16 Negative Negative [facility] HPV Genotype 18 Negative Negative [facility] Comment:HPV testing performe d at [facility] (CLIA#[id number]), [address] [place] [address].Testing for HPV was performed using the Cirilo SOLITARIO 6800system. The presence of HPV in the female genital tract isassociated with a number of diseases, including cervicalcarcinoma. The HPV DNA high risk pool tests for HPV 31, 33,35, 39, 45, 51, 52, 56, 58, 59, 66 and 68. The testing forHPV 16 and 18 genotypes has also been performed. A positiveresult indicates detection of nucleic acid sequences fromone or more subtypes, whereas a negative result indicatessuch sequences were not detected. 04/02/2025 8:08 AM EST 04/03/2025 8:34 AM EST us Generic External Data Provider LAB BLOOD ORDERAB LES Final Result Performing Organization Address City/State/[facility] Co de Phone Number [facility] [address] [place] [phone] * Pap Smear (04/02/2025 8:08 AM EST) 04/02/2025 8:08 AM EST 04/03/2025 7:53 AM EST Narrative [facility] - 04/13/2025 8:04 AM EST ----- ------- Name: Adela Flynn Age/Sex: 65/F : 1960 Unit#: [id number] Attend Dr: Flaco Chatterjee MD Re04/02/25 Status: DEP REF Location: [facility] Disch: ----- ------- SPEC : [id number] RECD: 04/03/25 STATUS: KELSY ZIEGLER NUM: [id number] CHAVEZ: 04/02/25 [facility] DR: Flaco Chatterjee MD ENTERED: 04/03/25 SP TYPE: Pap Smr OT DR: Tierney Goncalves GOVERNMENT AFFAIRS FELLOW ORDERED: Pap Smear Interpretation Satisfactory for evaluation (following reprocessing with acid wash procedure). Negative for intraepithelial lesion or malignancy. Obscuring inflammation. Atrophic. 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 Testing for HPV was performed using the Cirilo SOLITARIO 6800 system. The presence of HPV in the female genital tract is associated with a number of diseases, including cervical carcinoma. The HPV DNA high risk pool tests for HPV 31, 33, 35, 39, 45, 51, 52, 56, 58, 59, 66 and 68. The testing for HPV 16 and 18 genotypes has also been performed. A positive result indicates detection of nucleic acid sequences from one or more subtypes, whereas a negative result indicates such sequences were not detected. All professional services are performed by [facility] ([address] [place] [address]; ; CLIA #[id number]). The PAP Test is a screening procedure with the inherent possibility of both false negative and false positive results. Results should be interpreted in the context of historic and current clinical findings. Reliability of the PAP Test is enhanced by performing the test on a regular repetitive basis. CONTINUED ON NEXT PAGE ----- ------- Name: Adela Flynn Age/Sex: 65/F : 1960 Unit#: [id number] Attend Dr: Flaco Chatterjee MD Re04/02/25 Status: DEP REF Location: [facility] Disch: ----- ------- SPEC : [id number] RECD: 04/03/25 STATUS: KELSY ZIEGLER NUM: [id number] CHAVEZ: 04/02/25 [facility] DR: Flaco Chatterjee MD ENTERED: 04/03/25 SP TYPE: Pap Smr NICOLE DR: Tierney Goncalves ORDERED: Pap Smear Copies To: Tierney Goncalves [address] [address] Flaco Chatterjee MD [facility] Women's Services [address] [place] [address] [address] [place] [address] [phone] ----- ------- Signed (signature on file) LUDA Mccarthy ([facility]) 04/13/25 0804 ----- ------- END OF REPORT us Generic External Data Provider LAB CYTOLOGY GISEL BAIRES Final Result [facility] [address] [place] [phone] * BI Mammogram Screening Tomosynthesis Bilateral (03/24/2025 2:20 PM EST) Anatomical Region Laterality Modality Breast Bilateral Mammography 03/24/2025 2:20 PM EST Narrative 03/25/2025 7:20 PM EST [address] [place] [address] Mammography Report Signed Patient: Adela Flynn MR#: [id number] : 1960 Acct:[id number] Age/Sex: 65 / F ADM Date: 03/24/25 Loc: [facility] Attending Dr: Tierney Goncalves GOVERNMENT AFFAIRS FELLOW Ordering Physician: Tierney Goncalves Results: 2Beni gn Date of Service: 03/24/25 Follow Up: 1 Year From Orig inal Mammogram Procedure(s): MM tomosynthesis screening BI Accession Number(s): [id number] cc: Tierney Goncalves Reason For Exam: SCREENING EXAMINATION: MM SCREENING [...] by: Juwan Wilson MD 03/25/2025 07:17 PM [facility] Dictated By: Juwan Wilson MD Signed By: <Electronically signed by Juwan Wilson MD in OV> 03/25/251916 DD/ 1420 TD/TT: 03/24/25 1444 Network Contractor: Procedure Note Donotuseinterpreter, Image - 03/25/2025 [facility] [address] [place], [place] [address] Mammography Report Signed Patient: Adela Flynn R#: [id number] : 1960cct:[id number] Age/Sex: 65 / FADM Date: 03/24/25 Loc: PEDROO Attending Dr: Tierney Goncalves GOVERNMENT AFFAIRS FELLOW Ordering Physician: Tierney Goncalves FNPResults: 2Beni gn Date of Service: 03/24/25Follow Up: 1 Year From Orig inal Mammogram Procedure(s): MM tomosynthesis screening BI Accession Number(s): [id number] cc: Tierney Goncalves Reason For Exam: SCREENING EXAMINATION: MM SCREENING [...] by: Juwan Wilson MD 03/25/2025 07:17 PM [facility] Dictated By: Juwan Wilson MD Signed By: <Electronically signed by Juwan Wilson MD in OV> 03/25/25 1917 DD/ 1420 TD/TT: 03/24/25 1444 Network Contractor: us [facility] GOVERNMENT AFFAIRS FELLOW IMG BI PROCEDURES Final Resul t * US Pelvis Transvaginal (01/23/2025 2:18 PM EDT) Anatomical Region Laterality Modality Pelvis Ultrasound 01/23/2025 2:18 PM EDT Narrative 01/23/2025 2:55 PM EDT [address] [address] Ultrasound Report Signed Patient: Adela Flynn MR#: [id number] : 1960 Acct:[id number] Age/Sex: 64 / F ADM Date: 01/23/25 Loc: .US Attending Dr: Flaco Chatterjee MD Ordering Physician: Flaco Chatterjee MD Date of Service: 01/23/25 Procedure(s): US pelvic and transvaginal Accession Number(s): [id number] cc: [facility]; Flaco Chatterjee MD Reason for Exam: [...] 01/23/25 1452 DD/ 1418 TD/TT: 01/23/25 1430 Network Contractor: Procedure Note Donotuseinterpreter, Image - 01/23/[address] [place] [address] Ultrasound Report Signed Patient: Adela Flynn YMR#: [id number] : 1960cct:[id number] Age/Sex: 64 / FADM Date: 01/23/25 Loc: .US Attending Dr: Flaco Chatterjee MD Ordering Physician: Flaco Chatterjee MD Date of Service: 01/23/25 Procedure(s): US pelvic and transvaginal Accession Number(s): [id number] cc: [facility] GOVERNMENT AFFAIRS FELLOW; Flaco Chatterjee MD Reason for Exam: D21.9 [...] 01/23/25 1452 DD/ 1418 TD/TT: 01/23/25 1430 Network Contractor: [facility] External Provider IMG US PROCEDURES Final Result * Hepatitis Panel, General (08/04/2024 7:29 AM EDT) Hepatitis A IgM Nonreactive Nonreactive [facility] Comment:IgM antibodies to SERRANO V not detected; does not exclude earlyacute or recovered HAV infection. ~Hepatitis B Surface Antibody REACTIVE Nonreactive [facility] Comment:REACTIVE: > 11.99 mI U/mL Hepatitis B Core Antibody Nonreactive Nonreactive [facility] Hepatitis C Antibody Nonreactive Nonreactive [facility] Comment:Antibodies to HCV no t detected; does not exclude early acuteHCV infection. Hepatitis B Surface Ag Negative Negative [facility] 08/04/2024 7:29 AM EDT 08/04/2024 7:34 AM EDT Generic External Data Provider LAB BLOOD ORDERAB LES Final Result Performing Organization Address [facility]/State/[facility] Co de Phone Number [facility] [address] [place] [phone] * Colposcopy (12/17/2023 10:24 AM EDT) Historical Provider MD IN CLINIC/BEDSIDE ORDERAB LES Final Result * Hm Colonoscopy (03/06/2023 8:12 AM EST) Historical Provider HEALTH MAINTENANCE Final Result from Last 3 Months or Most Recently Relevant to Health Maintenance Insurance [employer] [facility] [place] DENTAL - HSN PARTIAL (MEDICAID) Care Teams Sort Line Worker Relationship Specialty Start Date End Date Tierney Goncalves FNP [address] [place] [address] PCP - General Family Medicine 12/27/21
--- OUTSIDE RECORDS SUMMARY | 2025-04-16 18:02 | XMS_ITS | Encounter Summary ---
Author Organization [employer] Address [address] [facility] [address] [address] Care Team Providers Care Box Nailer Name Role Phone Carney [facility] Primary Care Provider [phone] Encounter Details Date Type Department Care Team ([facility] st Contact Info) Description 05/16/2022 Telephone [facility] [address] [place], [place] [phone] Carney [facility] 230 [place], [place] [phone] Social History Tobacco Use Types Packs/Day Years [...] on filedocumented in this encounter Care Teams Box Nailer Relationship Specialty Start Date End Date Tierney Goncalves FNP [address] [place] [phone] PCP - General Family Medicine 12/27/21 documented as of this encounter
--- OUTSIDE RECORDS SUMMARY | 2025-04-16 18:02 | XMS_ITS | Encounter Summary ---
Author Organization [employer] Address [address] [facility] [address] [place] [address] Care Team Providers Care Hydrologist Name Role Phone [facility] Primary Care Provider [phone] Reason for Visit * Reason Comments Med Refill Encounter Details Date Type Department Care Team ([facility] st Contact Info) Description 07/21/2022 Refill [facility] [address] [place] [address] [facility] 230 [place] [address] Joint pain in both hands Social History [...] documented as of this encounter Care Teams Hydrologist Relationship Specialty Start Date End Date Tierney Goncalves FNP [address] [place] [phone] PCP - General Family Medicine 12/27/21 documented as of this encounter
--- OUTSIDE RECORDS SUMMARY | 2025-04-16 18:02 | XMS_ITS | Encounter Summary ---
Author Organization [employer] Address [address] [facility] 7t [place] [address] Care Team Providers Care Weighmaster Name Role Phone [facility] Primary Care Provider [phone] Reason for Visit * Reason Onset Date Comments Prior Authorization 05/16/2024 Encounter Details Date Type Department Care Team (Late st Contact Info) Description 05/16/2024 Telephone [facility] [address] [place] [address] [facility] [address] [place] [address] Prior Authorization Social History Tobacco Use Types [...] documented as of this encounter Care Teams Weighmaster Relationship Specialty Start Date End Date Tierney Goncalves FNP [address] [place] [phone] PCP - General Family Medicine 12/27/21 documented as of this encounter
--- OUTSIDE RECORDS SUMMARY | 2025-04-16 18:02 | XMS_ITS | Encounter Summary ---
Author Organization [employer] Address 75 [facility] 7t [place] [address] Care Team Providers Care Hospital Insurance Clerk Name Role Phone [facility] Primary Care Provider [phone] Reason for Visit * Reason Comments Med Refill Encounter Details Date Type Department Care Team ([facility] st Contact Info) Description 03/13/2023 Refill [facility] [address] [place] [address] [facility] [address] [place] [address] Social History Tobacco Use Types Packs/Day Years [...] documented as of this encounter Care Teams Hospital Insurance Clerk Relationship Specialty Start Date End Date Tierney Goncalves FNP [address] [place] [address] PCP - General Family Medicine 12/27/21 documented as of this encounter
--- OUTSIDE RECORDS SUMMARY | 2025-04-16 18:02 | XMS_ITS | Encounter Summary ---
Author Organization [facility] Address [address] [place] [address] [place] [phone] Phone Care Team Providers Care Certified Real Estate Appraiser Name Role Phone Tierney Goncalves Primary Care Provider [phone] Encounter Details Date Type Department Care Team (Late st Contact Info) Description 07/31/2023 Procedure Pass [facility] Endoscopy Admitting Dept Virtual Department [address] [place] [address] Social History Tobacco Use Types Packs/Day Years [...] on filedocumented in this encounter Care Teams Certified Real Estate Appraiser Relationship Specialty Start Date End Date Tierney Goncalves FNP [address] [place] [address] PCP - General Nurse Practitioner 07/31/23 documented as of this encounter Additional Source Comments The information contained in this document represents components of the legal health record. It is not the complete legal health record.[facility]
--- OUTSIDE RECORDS SUMMARY | 2025-04-16 18:02 | XMS_ITS | Clinical Summary ---
Author Organization [facility] Address [address] [address] Phone Care Team Providers Care Fitness Sales Associate Name Role Phone Tierney Goncalves SWETA Primary Care Provider [phone] Social History Tobacco Use Types Packs/Day Years [...] Devices Not on file Insurance [facility] DIRECT Care Teams Fitness Sales Associate Relationship Specialty Start Date End Date Tierney Goncalves FNP [address] [place] [phone] PCP - General Nurse Practitioner 07/31/23 Additional Source Comments The information contained in this document represents components of the legal health record. It is not the complete legal health record.[facility]
--- OUTSIDE RECORDS SUMMARY | 2025-04-16 18:02 | XMS_ITS | Encounter Summary ---
Author Organization [facility] Address [address] [place] [address] Phone Care Team Providers Care Sales And Marketing Analyst Name Role Phone Pcp, Unknown Primary Care Provider Unavailabl e Tierney Goncalves Primary Care Provider [phone] Encounter Details Date Type Department Care Team (Late st Contact Info) Description 07/24/2023 Procedure Pass [facility] Endoscopy Admitting Dept Virtual Department [address] [place] [address] Social History Tobacco Use Types Packs/Day Years [...] filedocumented in this encounter Care Teams Sales And Marketing Analyst Relationship Specialty Start Date End Date Pcp, Unknown PCP - General 04/17/23 07/30/23 Tierney Goncalves FNP [address] [place] [address] PCP - General Nurse Practitioner 07/31/23 documented as of this encounter Additional Source Comments The information contained in this document represents components of the legal health record. It is not the complete legal health record.[facility]
== END 2025-04-16 14:11 | disposition home or self-care (01) ==
LOC: HO.HGI 13:47
PROVIDERS: PCP Registered Nurse; Visit Provider Nurse Practitioner
DX: K21.9 Gastro-esophageal reflux disease without esophagitis (principal); K59.00 Constipation, unspecified
CPT/HCPCS: 99213